=== PATIENT | female | born 1995 | race Caucasian/White ===

== ENCOUNTER 2020-08-14 22:20 | Inpatient (IN) | payer BC, MEDICAID, SELFPAY ==
[2020-08-14 21:36] VITALS: BMI 30.5
[2020-08-14 21:46] VITALS: BP 141/99; PULSE 69; TEMP 36.4; O2SAT 100
[2020-08-14 21:47] VITALS: PULSE 73; O2SAT 98
[2020-08-14 22:16] LABS: ROM Internal Control Test YES-OK TO RESULT pt. (Internal QC)
[2020-08-14 22:17] LABS: ROM Patient Test POSITIVE (Negative)
--- NOTE | 2020-08-14 22:25 | PCM.HP.OB ---
- Problem List (1) 33 weeks gestation of Status: Acute (2) Primiparous Status: Acute (3) Amniotic fluid leaking Status: Acute (4) contractions Status: Acute History Date of Admission: 08/14/20 Final RADHA: 10/01/20 Gestational age: 33 Weeks and 1 Days History of this : This is a 24 year-old, G1 at 33w1d who presents with LOF and ctx's. She reports constant leaking of fluid for 2-3 days. She has been having painful ctx's q 5-7 min. No bleeding. +FM. Allergies No Known Allergies Allergy (Verified 08/14/20 21:53) Home Medications: Home Medications Amitriptyline HCl 50 mg PO DAILY 08/14/20 Pnv No.95/Ferrous Fum/Folic AC [ Caplet] 1 tab PO DAILY 08/14/20 Alcohol: None Substance Use Type: Marijuana Number of Fetus(es): 1 NST - FHR Rate Baby A Baseline: 140 Variability:: Moderate Accelerations:: 15 x 15 Decelerations:: None NST Reactive:: Yes Uterine Activity:: Ctx's q 5-7 min History Past Pregnancies: Past Pregnancies Delivery Date Name GA/ Weeks Outcome Route Wt Sex Labor Length Anesthesia Delivery Location Provider FOB Labs: See [facility] record Expected Infant Delivery Method: Spontaneous Vaginal Physical Exam Vitals: Vital Signs Temp Pulse BP Pulse Ox 97.5 F L 73 141/99 H 98 08/14/20 21:46 08/14/20 21:47 08/14/20 21:46 08/14/20 21:47 Assessment/Plan All Active Problems 33 weeks gestation of (Acute) Primiparous (Acute) Amniotic fluid leaking (Acute) contractions (Acute) This is a 24 year-old, at 33w1d admitted with positive ROM plus, contractions, and cervical dilation. Cervix 3-4 cm dilated with regular ctx's. - Admit for routine intrapartum care - Start PCN for GBS unknown. Will collect GBS culture - Pt requesting epidural now for pain control - ROM plus was positive but membranes palpated on exam. If pt not delivered by AM, will recheck ROM plus - BMZ for lung maturity - Discussed with pt baby may be transferred to [place] - Urine drug screen on admission - Anticipate vaginal delivery
[2020-08-14] MEDS: Betamethasone/Betamethasone 30 MG/5 ML Vial 12 MG IM (22:55)
--- NOTE | 2020-08-14 22:57 | PCM.PN.BLA ---
Progress Note TAUS- confirms vertex presentation. STROKE Vital Signs/Narrative: Vital Signs Temp Pulse BP Pulse Ox 08/14/20 21:47 73 98 08/14/20 21:46 97.5 F L 69 141/99 H 100
[2020-08-14] MEDS: Lactated Ringers 1,000 ML 50 ML IV (23:20)
[2020-08-14] MEDS: Lactated Ringers 500 ML 999 ML IV (23:20)
[2020-08-14] MEDS: Ondansetron 4 MG/2 ML Vial IV (23:29)
[2020-08-14] MEDS: 0.9% Saline Lock 10 ML Syringe IV (23:29)
[2020-08-14 23:46] LABS: Group B Strep DNA By PCR POSITIVE (Negative); Probe Check PASS
[2020-08-14 23:56] VITALS: TEMP 36.6; O2SAT 97
[2020-08-14 23:57] VITALS: BP 148/80; PULSE 77
[2020-08-15] VITALS (48 sets, daily range): BP systolic 114–152; BP diastolic 58–91; PULSE 50–116; RESP 16; TEMP 36.2–37.2; O2SAT 83–100
[2020-08-15] LABS: Absolute Lymphocyte Count 2.71 X10^3/uL (0.83-4.51); Absolute Neutrophil Count 12.1 X10^3/uL (2.0-7.7); Basophil# 0.07 X10^3/uL; Basophil% 0.4 % (0-1); Eosinophil# 0.16 X10^3/uL; Hemoglobin 10.8 g/dL (12.0-15.0); Lymphocyte # 2.71 X10^3/ul (4.0); Lymphocyte % 16.2 % (19-41); Mean Corp Hgb Conc 31.8 g/dL (32-36); Mean Corpuscular Hgb 23.7 pg (27.0-32.0); Mean Corpuscular Volume 74.7 fL (81-99); Mean Platelet Vol. 11.8 fl (6.2-12.0); Monocyte# 1.24 X10^3/uL; Monocyte% 7.4 % (0-10); NRBC Flagged by Analyzer 0 % (0-5); Platelet Count 429 K/mm3 (150-450); RBC Distribution Width SD 37.2 fl (35.1-43.9); Red Blood Count 4.55 M/mm3 (4.2-5.4); White Blood Count 16.8 K/mm3 (4.4-11.0)
[2020-08-15] MEDS: fentaNYL-bupivacaine (epidural) 100 ML BAG EPIDURAL ×2 (00:32→04:40)
[2020-08-15 01:45] LABS: Amphetamine Urine VISTA NEGATIVE (<1000 ng/mL); Barbiturate Urine VISTA NEGATIVE (< 200 ng/mL); Benzodiazepine Urine VISTA NEGATIVE (< 200 ng/mL); Cocaine Urine VISTA NEGATIVE (< 300 ng/mL); Ecstacy Urine VISTA NEGATIVE (< 500 ng/mL); Methadone Urine VISTA NEGATIVE (< 300 ng/mL); PCP Urine VISTA NEGATIVE (< 25 ng/mL); THC Urine VISTA POSITIVE (< 50 ng/mL); Vista UDS pH Range 6
[2020-08-15] MEDS: Lactated Ringers 1,000 ML 200 ML IV (04:39)
[2020-08-15] MEDS: Lactated Ringers 500 ML 999 ML IV (05:26)
[2020-08-15] MEDS: Oxytocin 30 units/NS 500 ml 30 UNITS/500 ML IV.SOLN 334 UNITS IV (09:33)
--- NOTE | 2020-08-15 09:40 | PCM.OPRPT ---
Vaginal Delivery Maternal Presentation: Active Labor, Spontaneous Rupture of Membranes Amniotic Membrane Rupture Type: Spontaneous at home Amniotic Fluid Description: Clear Final RADHA: 10/01/20 Final RADHA Source: US <20 weeks Gestational age: 33 Weeks and 2 Days Date of Procedure: 08/15/20 - 930 delivery time Pre-Operative Diagnosis: labor, PPPROM (08/12/20 1400) Post-Operative Diagnosis: same, live male infant Surgery/ Procedure Performed: Spontaneous Vaginal Delivery Type of Anesthesia: Epidural Description of Procedure: pt delivered live male born without complication on 08/15/20 at 0931. pt was complete and with PEDS/Respiratory/nursery team available infant delivered with good maternal pushing efforts. NUCHAL x 1 reduced prior to delivery. infant delivered and was placed on maternal chest for delayed cord clamping. was vigourous. cord then clamped and cut and handed to isolette for evaluation. Placenta was then delivered intact without complication. No vaginal lacerations noted. Presentation: Vertex Placenta Disposition: Routine to Lab Nuchal Cord Compression: Without compression Cord Entanglement: Around neck x 1, loose Drain: Andrew to straight drain Estimated Blood Loss: 150 A gender: Male (1 minute): 7 (5 minute): 8 Episiotomy Description: None Laceration: None Medications given after delivery: IV Pitocin Complications: - - no implants
--- NOTE | 2020-08-15 10:17 | DCINST_ITS ---
Discharge Diet: No Restrictions Discharge Activity: Return to Normal Activity, May not drive while taking narcotic pain medications., May Shower May resume sexual activity in: 4-6 weeks Additional Activity Instructions:: Nothing in the vagina for 4-6 weeks. You may return to work/school in 6 weeks. Call your doctor if your incision/area has: Continuous Slow Oozing, Sudden Increased Bleeding, Increased Pain/ Swelling, Increased Redness, Foul Smelling Discharge Additional Instructions: If you experience any of the following, contact your healthcare provider. * Bleeding that soaks a pad every hour for 2 hours * Fever 100.4 or higher * Unrelieved incision or abdominal pain * Swelling, redness, discharge or bleeding from your incision or episiotomy site * Your incision begins to separate * Problems urinating (including inability to urinate or burning while urinating). * Visual changes * Severe headache * Flu-like symptoms * Pain or redness in one of both of your breasts * Pain, warmth, tenderness or swelling in your legs, especially the calf area * Frequent nausea and vomiting * Symptoms of depression or anxiety If you experience any of the following, call 911 or go to the nearest Emergency Room. * Chest pain * Problems breathing * Seizure activity * Partial or complete paralysis of a body part, slurred speech, weakness or drooping of the face, or a sudden inability to walk or hold your balance Allergies/Adverse Reactions: Allergies No Known Allergies Allergy (Verified 08/14/20 21:53) Medications to take at Discharge Amitriptyline HCl 50 mg PO DAILY 08/14/20 Pnv No.95/Ferrous Fum/Folic AC [ Caplet] 1 tab PO DAILY 08/14/20 Ibuprofen [Motrin] 600 mg PO Q6H PRN PRN #60 tab 08/15/20 The following prescriptions were given: Ibuprofen [Motrin] 600 mg PO Q6H PRN PRN #60 tab PRN Reason: Pain Score 1-10 Transmission Status: Pending to [facility] Please Follow Up With: Danyell Mckeon MD When: Call to make an appointment with your doctor in 1-2 weeks then at 6 weeks post Primary Care Physician: Jeffery Smith MD [Primary Care Provider] - Test Results: Test results from this visit will be discussed in further detail at your follow- up appointment, if applicable. Proposed Discharge Date: 08/15/20 - being trasnferred to [facility]- pt requesting discharge today
--- NOTE | 2020-08-15 12:22 | NURSING ---
mother started pumping at 1200. Assisted with milk collection and milk was sent with the transport team to take with infant upon d/c from our unit. Mother already getting an abundant amount of colostrum.
--- NOTE | 2020-08-15 13:30 | CM.ED ---
Social Work Assessment Labor and Delivery Unit Date of Referral: 08/15/2020 Time of Referral: 11:00 Referred By: Nursing staff Date of Intervention: 08/15/2020 Time of Intervention: 13:30 Reason for Referral: Mother of baby (MOB) with THC use during . MOB with history of Anxiety and Depression. Father of baby (FOB) with history of Bi-polar. History obtained from: MOB, FOB, Nursing staff, Chart. Household composition: MOB (Kimberly Taylor) and FOB (Tanvir Brewer) have private home together. , Tramaine Brewer to join MOB and FOB. Patient's parent/guardian status: MOB and FOB have been together for 1 ? years and was not planned but ?not avoided.? This is first for MOB and second for FOB. FOB reports to have a 4-year-old daughter that FOB has on the weekends. FOB stepped out of the room and this outreach and education social worker was able to confirm that MOB feels safe with FOB. MOB and FOB report to be excited about Christopher and starting their family together. Medical History: MOB with history prior to this . MOB with vaginal delivery at 33 weeks. Infant born on 08/15/2020 and transferred to [facility]. MOB report plan to breast feed and has been pumping. MOB reports history of Anxiety and Depression. FOB with history of Bi-Polar. Educational Status: MOB denies any issues with comprehension or understanding. 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 FOB is self-employed and lays tile. Supplies: MOB reports to have all needed infant supplies in the home including a crib and car seat etc. Childcare/Caregiver(s): MOB plans to be primary caregiver for with family for support ones MOB returns to work. Transportation: Denies any issues. Programs/Agencies Involved: MOB reports to have applied for WIC. Children Services/Legal Issues: Denies any legal issues or active children services case. FOB reports ?there was a case? for FOB?s 4 year old daughter with allegations against the FOB?s prior partner. Mental Health History: MOB reports to have history of Anxiety and Depression. MOB reports to take Amitriptyline to manage mental health. Patient denies any suicidal thoughts, plans, intents. This outreach and education social worker able to facilitate conversation with MOB about signs and symptoms. MOB reports to have a positive support system and feels safe talking with doctor or supports as needed. Substance Use History: MOB admits to THC use with last use being 6-8 weeks ago. MOB aware of positive tox screen during and on admission to labor and delivery. MOB reports safety plan is to no longer use THC. MOB reports that if MOB would return to using THC MOB would discontinue and not use around infant, leaving infant in the care of a sober adult. MOB denies any other substance abuse/use. Family History: FOB with history of Bi-polar. FOB reports to have last been treated for ?my Bi-polar when I was in 8th grade.? Maternal and Drug Screens: MOB with positive tox screen on 08/15/2020. discharged to [facility] prior to being able to obtain tox screen results. PHQ9: Did not trigger. Family/Social Stressors: Infant being transferred to [facility]. MOB appears with appropriate affect and management of emotions. Support Systems: MOB reports to have needed supports in the home and community. Depression and Anxiety/Shaken Baby/Safe Sleeping: This outreach and education social worker provided MOB with resources on Depression and Anxiety, Shaken Baby and Safe Sleeping along with [facility] Resources. MOB and FOB responding appropriately to safe sleeping and shaken baby prompts. ASSESSMENT: Met with MOB and FOB in room. Introduced self and outreach and education social worker role. MOB agreeable to speak with this outreach and education social worker. MOB provided verbal permission for this outreach and education social worker to speak openly with FOB present. Unable to observe interaction with infant and MOB/FOB due to infant being transferred to [facility]. MOB reports to ?feel a connection.? MOB reports to be excited about . MOB denies any issues or concerns at discharge and plans to discharge to critical access hospital/[facility] today. Safe Plan of Care for related to substance use: MOB reports plan to no longer use THC. MOB reports if MOB would return to using THC to plan to stop and to not use around infant, leaving in the charge of a sober adult. PLAN: MOB to discharge to critical access hospital. John Vaughn MSW, JOYA-S
[2020-08-15 13:36] LABS: Absolute Lymphocyte Count 1.59 X10^3/uL (0.83-4.51); Absolute Neutrophil Count 24.2 X10^3/uL (2.0-7.7); Basophil# 0.03 X10^3/uL; Basophil% 0.1 % (0-1); Hematocrit 32.4 % (37-47); Hemoglobin 10.1 g/dL (12.0-15.0); Lymphocyte # 1.59 X10^3/ul (4.0); Lymphocyte % 5.8 % (19-41); Mean Corp Hgb Conc 31.2 g/dL (32-36); Mean Corpuscular Hgb 23.3 pg (27.0-32.0); Mean Corpuscular Volume 74.7 fL (81-99); Mean Platelet Vol. 10.8 fl (6.2-12.0); Monocyte# 1.32 X10^3/uL; Monocyte% 4.8 % (0-10); NRBC Flagged by Analyzer 0.1 % (0-5); Neutrophil # 24.21 X10^3/uL (2.7-7.7); Neutrophil % 88.5 % (47-70); POSITIVE DIFFERENTIAL YES; Platelet Count 370 K/mm3 (150-450); RBC Distribution Width SD 37.3 fl (35.1-43.9); Red Blood Count 4.34 M/mm3 (4.2-5.4); White Blood Count 27.4 K/mm3 (4.4-11.0)
[2020-08-15 13:38] LABS: Differential Indicated SCAN CRITERIA MET
--- NOTE | 2020-08-15 14:13 | NURSING ---
Lab results called to Dr Alfredo. Aware of increase in WBC. Ok to discharge home but not till 1600. Pt to call office if develops any signs and symptoms of infection.
--- NOTE | 2020-08-15 16:48 | PCM.PN.BLA ---
Progress Note spoke with ASHLEE Cordova after CBC results- increased WBC count- pt will monitor for signs of infection. pt had PPPROM- afebrile during labor, did receive IV PCN. Pt did not exhibit and purulent or malodorous vaginal discharge. PT will be given instructions on Monitoring for S/Sx of infection and will notify office if she experiences any symptoms. Infant transported to [facility] and patient would like dc home. STROKE Vital Signs/Narrative: Vital Signs Temp Pulse Resp BP BP 08/15/20 16:00 97.2 F L 82 16 132/76 H 08/15/20 15:51 82 132/76 H 08/15/20 13:11 98.2 F 99 16 125/78 H
== END 2020-08-15 16:30 | disposition home or self-care (01) | DRG 807 ==
LOC: WPOUT 22:27 → WP 22:27
PROVIDERS: Advanced Practice Midwife; Obstetrics & Gynecology; Admitting Provider Obstetrics & Gynecology; PCP Pediatrics; Visit Provider Obstetrics & Gynecology
DX: O42.013 Preterm premature rupture of membranes, onset of labor within 24 hours of rupture, third trimester (principal); Z37.0 Single live birth; O69.81X0 Labor and delivery complicated by cord around neck, without compression, not applicable or unspecified; Z3A.33 33 weeks gestation of pregnancy
CPT/HCPCS: 59025; 59050; 76815; 80307; 84112; 85025; 86850; 86900; 86901; 87426; 87653; 99218; J7120; A4216; G0378; J0702; J2405

== ENCOUNTER 2021-06-25 12:04 | Emergency (ER) | payer BC, MEDICAID, SELFPAY ==
[2021-06-25 12:04] VITALS: BP 109/71; PULSE 83; RESP 16; TEMP 36.9; O2SAT 100; BMI 23.8
--- NOTE | 2021-06-25 13:34 | ED.VIS.GI ---
HPI HPI - GI History of Present Illness Chief Complaint: Nausea/Vomiting Narrative Narrative: Patient is a G2, P1 female at approximately 8 weeks gestation, presenting with nausea and vomiting. She states that she has been sick with upper respiratory infection type symptoms and nausea and vomiting for the last week, but is worsened over the last few days. Over the last 24 hours, she has vomited too many times to count. She denies any blood in her emesis. No diarrhea. She had abdominal cramping, but no vaginal pain or uterine cramping. She denies any vaginal bleeding. She still states that her OB told her to take it easy with vitamins because she has been ill and having nausea and vomiting. She is taking Phenergan without relief. She did have mild hyperemesis with her first child, was never hospitalized. She denies any dysuria or hematuria. Of note, she does admit to marijuana use, the last being this morning, because she says that it helps her sleep, and that she has tried to cut back on her use. PFSH PFS Home Medications NK 06/25/21 [History Last Taken Unknown] Allergy/AdvReac Type Severity Reaction Status Date / Time No Known Allergies Allergy Verified 06/25/21 12:06 Social History Smoking Status: Never smoker ROS ROS ED ROS Narrative Constitutional: No fever, no chills. HEENT: No sore throat. No neck pain. No loss of vision. No rhinorrhea. Cardiovascular: No chest pain. No palpitations. No pedal edema. Respiratory: No cough, no shortness of breath. Abdominal: No abdominal pain, occasional abdominal cramping. Positive nausea. Multiple episodes of vomiting. No hematemesis. Genitourinary: No dysuria. No hematuria. No uterine cramping. No vaginal bleeding. Musculoskeletal: No myalgias. No arthralgias. Neurologic: No headaches. No dizziness. No lightheadedness. Skin: No rash. No change in color. Psychiatric: No depression. No anxiety. EXAM Physical Exam Narrative Exam Narrative: Afebrile. Vital signs noted. HEENT: Normocephalic. Atraumatic. PERRL, EOMI. Neck soft and supple. No point tenderness or step off. Cardiovascular: Regular rate and rhythm. No murmurs, rubs, or gallops appreciated. Respiratory: No tachypnea. Lungs clear to auscultation bilaterally. Gastrointestinal: Abdomen soft, nontender, with normoactive bowel sounds. No rebound or guarding. Neurological: Awake. Alert. Nonfocal, nonlateralizing. Skin: No rash. Normal color. No pallor. Musculoskeletal: No pedal edema. Full range of motion extremities. Const Vital Signs: 06/25/21 12:04 Temperature 98.4 F Temperature Source Temporal Pulse Rate 83 Respiratory Rate 16 Blood Pressure 109/71 Blood Pressure Mean 83 Pulse Ox 100 Oxygen Delivery Method Room Air MDM MDM MDM Narrative Medical decision making narrative: Patient states that she has had ultrasound at her OBs office which shows intrauterine that may be larger than dates. I do not feel repeat ultrasound is indicated. She is not having any vaginal bleeding. I do feel that she may be having more hyperemesis gravidarum and that her marijuana use can contribute to this. I will obtain a CBC, CMP, and lipase, along with urinalysis. She will be administered a bolus of normal saline 1 L intravenously along with 10 mg of Reglan. There has been no vomiting in the ED. After her IV fluid bolus she feels improved. WBC count normal at 10.1, hemoglobin stable at 12.5. Potassium slightly low at 3.4, she has a normal creatinine of 0.53 and a BUN of 5. Her urinalysis shows no evidence of infection with only 0-5 WBCs seen on microscopic. I do not feel antibiotics are indicated. She does have 150 ketones noted in her urine. I discussed the patient with Rosario Garcia, the anesthesiologist assistant certified on-call for Dr. Alfredo. She agrees with outpatient follow-up. She will be given a prescription for Zofran as instructed by the charge histotechnologist. I feel she can be discharged safely home with follow-up. Return instructions to the emergency department were reviewed. Disposition is discharged home in stable condition. I have also discussed marijuana cessation with the patient. Lab Data Attestation: I reviewed the patient's lab results. Labs: Laboratory Results - last 24 hr 06/25/21 06/25/21 06/25/21 13:50 13:50 15:10 WBC 10.1 RBC 5.09 Hgb 12.5 Hct 38.3 MCV 75.2 L MCH 24.6 L MCHC 32.6 RDW Std Deviation 46.5 H RDW Coeff of Macy 17.1 H Plt Count 314 MPV 10.0 Immature Gran % (Auto) 0.500 Neut % (Auto) 78.8 H Lymph % (Auto) 9.3 L Dewey % (Auto) 9.5 Eos % (Auto) 1.6 Baso % (Auto) 0.3 Absolute Neuts (auto) 7.9 H Absolute Lymphs (auto) 0.94 Nucleated RBC % 0 Sodium 137 Potassium 3.4 L Chloride 106 Carbon Dioxide 22.0 Anion Gap 9 BUN 5 L Creatinine 0.53 L Estim Creat Clear Calc 129.45 Est GFR (MDRD) Af Amer 180 Est GFR (MDRD) Non-Af 149 BUN/Creatinine Ratio 9.4 L Glucose 70 L Calcium 8.8 Total Bilirubin 0.30 AST 10 L ALT 14 Alkaline Phosphatase 57 Total Protein 6.8 Albumin 2.8 L Globulin 4.0 Albumin/Globulin Ratio 0.7 L Lipase 43 L Urine Color Yellow Urine Clarity Sl. Cloudy Urine pH 6.0 Ur Specific [place] 1.025 Urine Protein 30 H Urine Glucose (UA) Normal Urine Ketones 150 A* Urine Occult Blood Negative Urine Nitrite Negative Urine Bilirubin Negative Urine Urobilinogen 1 H Ur Leukocyte Esterase 25 H Urine RBC 0 SEEN Urine WBC 0-5 SEEN Ur Squamous Epith Cells 0-5 SEEN Urine Bacteria 1+ Urine Mucus 0 SEEN Discharge Plan Triage Chief Complaint: Nausea/Vomiting ED Provider: Carter Burkett Dx/Rx/DC Orders Prescriptions: No Action NK RF: 0 Primary Care Provider: Ramiro Aguirre
[2021-06-25] MEDS: Metoclopramide 10 MG/2 ML Vial IV (13:47)
[2021-06-25] MEDS: 0.9% Normal Saline 1,000 ML 1000 ML IV (13:47)
[2021-06-25 13:59] LABS: Absolute Lymphocyte Count 0.94 X10^3/uL (0.83-4.51); Absolute Neutrophil Count 7.9 X10^3/uL (2.0-7.7); Basophil# 0.03 X10^3/uL; Basophil% 0.3 % (0-1); Eosinophil# 0.16 X10^3/uL; Eosinophils% 1.6 % (0-5); Hematocrit 38.3 % (37-47); Hemoglobin 12.5 g/dL (12.0-15.0); Lymphocyte # 0.94 X10^3/ul (0.83-4.51); Lymphocyte % 9.3 % (19-41); Mean Corp Hgb Conc 32.6 g/dL (32-36); Mean Corpuscular Hgb 24.6 pg (27.0-32.0); Mean Corpuscular Volume 75.2 fL (81-99); Monocyte# 0.96 X10^3/uL; Monocyte% 9.5 % (0-10); NRBC Flagged by Analyzer 0 % (0-5); Neutrophil # 7.94 X10^3/uL (2.7-7.7); Neutrophil % 78.8 % (47-70); Platelet Count 314 K/mm3 (150-450); RBC Distribution Width CV 17.1 % (11.6-14.6); RBC Distribution Width SD 46.5 fl (35.1-43.9); Red Blood Count 5.09 M/mm3 (4.2-5.4); White Blood Count 10.1 K/mm3 (4.4-11.0)
[2021-06-25 14:19] LABS: ALB/GLOB Ratio 0.7 RATIO (0.9-2.4); AST(SGOT) 10 U/L (15-37); Alanine Aminotransfer ALT/SGPT 14 U/L (13-56); Albumin, Serum 2.8 g/dL (3.2-5.0); Alkaline Phosphatase 57 U/L (45-117); Anion Gap 9 (5-15); BUN 5 mg/dL (7-18); BUN/Creat Ratio 9.4 RATIO (10-20); Calcium,Total 8.8 mg/dL (8.5-10.1); Chloride 106 mmol/L (98-107); Creatinine, Serum 0.53 mg/dL (0.55-1.02); EST Glomerular Filtration Rate 149 mL/min (>60); Est Glom Filt Rate - Afr Amer 180 mL/min (>60); Estimated Creatinine Clearance 129.45 ml/min; Glucose 70 mg/dL (74-106); Lipase 43 U/L (73-393); Potassium 3.4 mmol/L (3.5-5.1); Protein, Total 6.8 g/dL (6.4-8.2); Sodium Level 137 mmol/L (136-145)
[2021-06-25 15:14] LABS: Mucous, Urine 0 SEEN /hpf (<or=2+); Red Blood Cells-Urine 0 SEEN /hpf (0-5)
[2021-06-25 15:20] LABS: Color, Urine Yellow (Yellow); Glucose, Dipstick Normal (Normal); Leukocyte Esterase-Dipstick 25 /ul (Negative); Nitrite-Dipstick Negative (Negative); Occult Blood-Urine Negative /ul (Negative); Protein-Dipstick 30 mg/dl (Negative); Specific Gravity, Urine 1.025 (1.002-1.030); Urine Bilirubin Dipstick Negative (Negative); Urine Clarity Sl. Cloudy (Clear); Urine Urobilinogen 1 mg/dl (Normal)
[2021-06-25 15:22] LABS: Ketone-Dipstick 150 mg/dl (Negative)
[2021-06-25 15:30] LABS: Bacteria 1+ /hpf (None Seen); Squamous Epithelial Cells - UA 0-5 SEEN /hpf (5-10); White Blood Cells 0-5 SEEN /hpf (0-5)
[2021-06-25 16:29] VITALS: BP 114/70; PULSE 66; RESP 16; O2SAT 98
== END 2021-06-25 16:30 | disposition home or self-care (01) ==
PROVIDERS: Emergency Provider Emergency Medicine; PCP Family Medicine
DX: O21.9 Vomiting of pregnancy, unspecified (principal); O99.321 Drug use complicating pregnancy, first trimester; F12.90 Cannabis use, unspecified, uncomplicated; Z3A.08 8 weeks gestation of pregnancy
CPT/HCPCS: 80053; 81001; 83690; 85025; 96361; 96374; 99283; J7030; A4216

== ENCOUNTER 2022-01-01 20:05 | Outpatient (CLI) | payer BC, MEDICAID, SELFPAY ==
[2022-01-01 20:14] VITALS: BMI 28.4
[2022-01-01 20:18] VITALS: TEMP 36.6
[2022-01-01 20:24] VITALS: BP 126/74; PULSE 68
[2022-01-01 20:53] LABS: Mucous, Urine 0 SEEN /hpf (<or=2+); Red Blood Cells-Urine 0 SEEN /hpf (0-5)
[2022-01-01 20:56] LABS: Color, Urine Yellow (Yellow); Glucose, Dipstick Normal (Normal); Ketone-Dipstick Negative (Negative); Leukocyte Esterase-Dipstick 100 /ul (Negative); Nitrite-Dipstick Negative (Negative); Occult Blood-Urine Negative /ul (Negative); Protein-Dipstick 15 mg/dl (Negative); Urine Bilirubin Dipstick Negative (Negative); Urine Clarity Clear (Clear); Urine Urobilinogen Normal (Normal); Urine pH 6.5 (5.0 - 8.0)
[2022-01-01 21:06] LABS: Bacteria 1+ /hpf (None Seen); White Blood Cells 5-10 SEEN /hpf (0-5)
[2022-01-01 21:07] LABS: Squamous Epithelial Cells - UA 0-5 SEEN /hpf (5-10)
[2022-01-01 21:34] LABS: ROM Internal Control Test YES-OK TO RESULT pt. (Internal QC)
[2022-01-01 21:35] LABS: ROM Patient Test Negative (Negative)
[2022-01-01 22:02] LABS: Group B Strep DNA By PCR Negative (Negative); Internal Control PASS; Probe Check PASS; Specimen Processing Control PASS
--- NOTE | 2022-01-20 10:15 | OB.TRI.NOTE ---
HPI - General HPI Narrative QUE JEONG, is a 26 F who presents at 35w2d with contractions Maternal Data Information RADHA Calculator Estimated Delivery Date Method Current WG Current Estimate 02/02/22 Manual 38w 1d 35w2d PFSH PFSH Medical History (Updated 01/20/22 @ 10:17 by Kanwal Chow CNM) Anxiety Depression History of depression History of pre-term labor History of delivery Migraine Myocarditis Postoperative pain depression Home Medications ondansetron 4 mg PO Q8H PRN #10 tab 06/25/21 [Rx Last Taken 11/02/21] vit-iron fum-folic ac 1 tab PO DAILY 01/01/22 [History Last Taken 01/04/22 08:00] acetaminophen 1,000 mg PO Q6H #60 tab 01/08/22 [Rx Last Taken Unknown] ferrous gluconate 324 mg PO LUNCH #30 tab 01/08/22 [Rx Last Taken Unknown] fluoxetine 40 mg PO QHS #60 cap 01/08/22 [Rx Last Taken Unknown] ibuprofen 600 mg PO Q6H PRN #30 tab 01/08/22 [Rx Last Taken Unknown] oxycodone 5 mg PO Q8H PRN 4 Days #10 tab 01/08/22 [Rx Last Taken Unknown] Allergy/AdvReac Type Severity Reaction Status Date / Time No Known Allergies Allergy Verified 01/04/22 20:55 Surgical History (Updated 01/09/22 @ 00:01 by Background Dajasenon) Delivery by section [place] teeth removed Social History Smoking Status: Never smoker History Elective abortions Hx Para 1 Spontaneous abortions Hx # Term Pregnancies Ectopic pregnancies Hx # Pregnancies Multiple births # of living children NST FHR Rate Baby A Baseline: 140 Variability:: Moderate Accelerations:: 15 x 15 Decelerations:: None NST Reactive:: Yes Uterine Activity:: Irregular Assessment & Plan (1) False labor: PLAN: 1) False labor 2) D/C home
== END 2022-01-01 22:39 | disposition home or self-care (01) ==
LOC: WPOUT 20:11 → WP 20:11
PROVIDERS: PCP Family Medicine; Visit Provider Advanced Practice Midwife
DX: O47.9 False labor, unspecified (principal); Z3A.35 35 weeks gestation of pregnancy
CPT/HCPCS: 59025; 59050; 81001; 84112; 87081; 87653; 99218; G0378

== ENCOUNTER 2022-01-04 20:13 | Inpatient (IN) | payer BC, MEDICAID, SELFPAY ==
[2022-01-04] VITALS (24 sets, daily range): BP systolic 110–140; BP diastolic 73–84; PULSE 60–85; TEMP 36.3–37.3; O2SAT 98–100; BMI 28.3
[2022-01-04] MEDS: Betamethasone/Betamethasone 30 MG/5 ML Vial 12 MG IM (18:57)
[2022-01-04 19:06] LABS: Amphetamine Urine VISTA NEGATIVE (<1000 ng/mL); Barbiturate Urine VISTA NEGATIVE (< 200 ng/mL); Benzodiazepine Urine VISTA NEGATIVE (< 200 ng/mL); Cocaine Urine VISTA NEGATIVE (< 300 ng/mL); Ecstacy Urine VISTA NEGATIVE (< 500 ng/mL); Methadone Urine VISTA NEGATIVE (< 300 ng/mL); PCP Urine VISTA NEGATIVE (< 25 ng/mL); THC Urine VISTA NEGATIVE (< 50 ng/mL); Vista UDS pH Range 6
--- NOTE | 2022-01-04 20:27 | PCM.HP.OB ---
HPI - General General Date of Admission: 01/04/22 HPI Narrative QUE JEONG, is a 26 F who presents Maternal Data Information RADHA Calculator Estimated Delivery Date Method Current WG Current Estimate 02/02/22 Ultrasound #1 35w 6d PFSH PFSH Home Medications ondansetron 4 mg PO Q8H PRN #10 tab 06/25/21 [Rx Last Taken 11/02/21] fluoxetine 40 mg PO DAILY 01/01/22 [History Last Taken 01/03/22 21:00] vit-iron fum-folic ac [Prena-Tab] 1 tab PO DAILY 01/01/22 [History Last Taken 01/04/22 08:00] Allergy/AdvReac Type Severity Reaction Status Date / Time No Known Allergies Allergy Verified 01/04/22 17:59 Social History Smoking Status: Never smoker History Elective abortions Hx Para 0 Spontaneous abortions Hx # Term Pregnancies Ectopic pregnancies Hx # Pregnancies Multiple births # of living children Vital Signs Vital Signs Vital Signs: 01/04/22 17:57 Temperature 97.4 F L Temperature Source Temporal Pulse Rate 68 Blood Pressure 124/74 H BP Systolic 124 BP Diastolic 74 Weight Weight: 154 lb 12.232 oz Body Mass Index (BMI) 28.3 Labs Labs Labs: Blood Type A POSITIVE Antibody Screen NEGATIVE Hct 38.3 % (37-47) Hgb 12.5 g/dL (12.0-15.0) Group B Strep DNA Negative (Negative) Rhogam given: No Assessment & Plan (1) 35 weeks gestation of : PLAN: - Cvx changed from 4 > 5 cm - Thickened nuchal fold in with normal CVS - Admit for routine intrapartum care - Rapid GBS, GBS cx - Epidural for pain control - BMZ given x 1 - Most recent Hgb in office 8.8, routine labs on admission - EFW expected to be < 3500 g and pelvis adequate - Anticipate vaginal delivery (2) labor: (3) Anemia affecting : (4) Thickening of nuchal fold: (5) History of delivery: (6) Short interval between pregnancies affecting , antepartum:
[2022-01-04] MEDS: Lactated Ringers 1,000 ML 50 ML IV (20:40)
[2022-01-04 21:06] LABS: Group B Strep DNA By PCR Negative (Negative); Internal Control PASS; Probe Check PASS; Specimen Processing Control PASS
[2022-01-04 21:07] LABS: Absolute Neutrophil Count 9.9 X10^3/uL (2.0-7.7); Basophil# 0.01 X10^3/uL; Basophil% 0.1 % (0-1); Eosinophil# 0.08 X10^3/uL; Eosinophils% 0.7 % (0-5); Hematocrit 32.2 % (37-47); Hemoglobin 9.4 g/dL (12.0-15.0); Lymphocyte % 12.3 % (19-41); Mean Corp Hgb Conc 29.2 g/dL (32-36); Mean Platelet Vol. 11.4 fl (6.2-12.0); Monocyte# 0.55 X10^3/uL; Monocyte% 4.5 % (0-10); NRBC Flagged by Analyzer 0 % (0-5); Neutrophil # 9.94 X10^3/uL (2.7-7.7); Neutrophil % 81.2 % (47-70); POSITIVE MORPHOLOGY YES; Platelet Count 264 K/mm3 (150-450); RBC Distribution Width CV 21.6 % (11.6-14.6); RBC Distribution Width SD 44.8 fl (35.1-43.9); Red Blood Count 4.47 M/mm3 (4.2-5.4); White Blood Count 12.2 K/mm3 (4.4-11.0)
[2022-01-04] MEDS: Lactated Ringers 500 ML 999 ML IV (21:08)
[2022-01-04 21:11] LABS: Differential Indicated SCAN CRITERIA MET
[2022-01-04 21:55] LABS: Differential Comment SCANNED
[2022-01-04] MEDS: fentaNYL-bupivacaine (epidural) 100 ML BAG EPIDURAL (22:05)
[2022-01-04] MEDS: FLUoxetine 20 MG Capsule 40 MG PO (22:21)
--- NOTE | 2022-01-04 22:39 | PCM.PN.BLA ---
Progress Note At bedside to check on patient. Comfortable with epidural. Category 1 tracing. Isai q 3-4 min. Cvx 5/70/-1, BBOW.
[2022-01-05] VITALS (27 sets, daily range): BP systolic 96–124; BP diastolic 51–77; PULSE 52–81; RESP 14–24; TEMP 36.2–37.2; O2SAT 97–99
[2022-01-05] MEDS: Lactated Ringers 500 ML 999 ML IV (01:57)
[2022-01-05] MEDS: Lactated Ringers 1,000 ML 200 ML IV (02:38)
[2022-01-05] MEDS: fentaNYL-bupivacaine (epidural) 100 ML BAG EPIDURAL (02:43)
--- NOTE | 2022-01-05 04:13 | PCM.PN.BLA ---
Progress Note At bedside pushing with patient for about 1 hour. ROP position. Good maternal effort and descent noted. Continue position changes to attempt rotation.
--- NOTE | 2022-01-05 04:46 | PCM.PN.BLA ---
Progress Note At bedside to reassess patient. Almost 2 hours of pushing. Minimal descent noted now and maternal exhausted. Fetus in OP position. Discussed r/b/a to a vacuum assisted vaginal delivery including but not limited to lacerations, cephalohematoma, subgaleal hematoma, intracranial hemorrhage, nerve palsy. Patient desires to proceed with a vacuum assisted vaginal delivery given maternal exhausted and arrest of labor in the second stage. Consent obtained. Bladder drained with de la fuente. Cvx 10/100/+2. Pain well controlled with epidural. See operative report for details.
[2022-01-05] MEDS: Sodium Citrate/Citric Acid 30 ML UDC PO (04:48)
[2022-01-05] MEDS: Acetaminophen 500 MG Tablet PO (04:50)
[2022-01-05] MEDS: Cefazolin 2 GM in 0.9% Normal Saline 100 ML IV (05:00)
--- NOTE | 2022-01-05 06:32 | OP.PCM_ITS ---
Problems Associated Problem List Diagnoses (1) 36 weeks gestation of : (2) Arrest of descent, delivered, current hospitalization: (3) POP (persistent occipitoposterior position): (4) History of delivery: (5) Short interval between pregnancies affecting , antepartum: (6) labor: Report of Operation Date of Procedure: 01/05/22 Pre-Operative Diagnosis: 36 week gestation, arrest of descent, persistent OP position, labor, failed vacuum Post-Operative Diagnosis: As above Surgery/Procedure Performed:: PLCS via pfannenstiel incision Description of Surgical Findings:: Indications: The patient presented at 35w6d in labor. History of prior 33 week vaginal delivery. At 36 week gestation she had progressed to complete and SROM'd. Pelvic felt adequate. Infant was in persistent OP position despite trying multiple pushing positions including hands and knees in an attempt to rotate the baby. She was pushing for about 1.5 hours. Initially good descent was noted. At the end of the 1.5 hours it was felt that no further descent was being made, and maternal exhaustion was noted. Discussed r/b/a of a vacuum assisted vaginal delivery, and discussed option for proceeding directly with a primary section. Clear fluid. VMI in OP position. Normal appearing placenta and 3 VC. Normal appearing uterus and bilateral adnexa. Narrow pelvis. Extension into the right broad ligament. Apgars 1, 6, 7. Delivery time 0527. Surgeon: Leonila Holley professional application designer: Lucas CANTU Type of Anesthesia: Epidural Special Medications: Floseal applied over broad ligament extension Specimen's removed: Placenta Drains: Andrew Estimated Blood Loss (mL): 900 Fluids Replaced: See anesthesia record Description of Procedure: The patient was taken to the operating room where epidural anesthesia was found to be adequate. She was prepped and draped in the dorsal position with a leftward tilt. A Pfannenstiel skin incision was made with a scalpel and this was carried down to the underlying layer of fascia. The fascia was incised in the midline. The fascia was extended laterally using Avila scissors. The fascia was dissected off of the rectus muscles using a combination of sharp and blunt dissection. The rectus muscles were in the midline. The peritoneum was entered bluntly with good visualization of the bladder. The peritoneal incision was extended bluntly. A bladder blade was inserted. A low transverse incision was made on the uterus with a scalpel. Uterine incision was extended bluntly. A nurse applied a hand from below to assist in elevating the head out of the pelvis. The pelvis was felt to be very narrow. The was noted to be in OP position. The infant's head was flexed and brought to the hysterotomy. A viable male was delivered without any traction, force or delay through the hysterotomy. The cord was clamped and cut immediately and the was handed off to the awaiting nursery staff. Placenta was manually extracted and noted to be normal-appearing and intact with three-vessel cord. Cord gases were sent. The uterus was cleared of all clot and debris. The uterus was exteriorized. The hysterotomy was closed with 1-0 Vicryl in a running locked fashion. An extension into the right broad ligament was noted and several additional [id number] sutures were placed with 1-0 Vicryl along the extension to achieve hemostasis. At this time anesthesia had noted that the Andrew was bloody. The bladder was backfilled with methylene blue and no defect was noted. The uterus was placed back into the abdomen. The hysterotomy was again hemostatic. Floseal was placed along the extension into the right broad ligament and pressure was applied. Hemostasis was again noted. The peritoneum was closed with 3-0 Vicryl in a running fashion. The rectus muscles were made hemostatic with the Bovie cautery. The fascia was closed with strata fix in a running fashion. The subcutaneous space was irrigated and made hemostatic with the Bovie cautery. The subcutaneous space was reapproximated with 3-0 Vicryl. The skin was closed in a subcuticular fashion using 4-0 Monocryl. A silver dressing was placed. Instrument, sponge, needle counts were correct and the patient was taken to the recovery in stable condition. The diversional therapist's assistant was present for the entire care: draping the patient, delivery of the infant, closure. Grafts/Implants Used: None Procedure Start Time: 05:18 Procedure Stop Time: 06:20 Complications None Admit VTE Documentation VTE Present on Admission: No VTE Mechan Device Prophylaxis: SCD's
[2022-01-05] MEDS: Oxytocin 30 units/NS 500 ml 30 UNITS/500 ML IV.SOLN 167 UNITS IV (06:39)
--- NOTE | 2022-01-05 06:46 | OP.PCM_ITS ---
Problems Associated Problem List Diagnoses (1) POP (persistent occipitoposterior position): (2) Arrest of descent, delivered, current hospitalization: (3) 36 weeks gestation of : (4) labor: (5) History of delivery: (6) Anemia affecting : (7) Short interval between pregnancies affecting , antepartum: Report of Operation Date of Procedure: 01/05/22 Pre-Operative Diagnosis: 36 week gestation, arrest of descent, persistent OP p osition Post-Operative Diagnosis: As above Surgery/Procedure Performed:: Attempted VAVD Description of Surgical Findings:: Infant in persistent OP position Surgeon: Leonila Holley facilities operator: None Type of Anesthesia: Epidural Special Medications: None Specimen's removed: N/A Drains: De La Fuente Estimated Blood Loss (mL): N/A Fluids Replaced: N/A Description of Procedure: Patient was pushing for about 1.5 hours. Maternal exhaustion noted. Towards the end of pushing FHT with variable decelerations with pushing with recovery in between and moderate variability. The infants head was confirmed to be OP position. Cvx 10/100/+2. Bladder was drained with a de la fuente. Patient was comfortable with epidural. Discussed risk, benefits, alternatives to a vacuum-assisted vaginal delivery and the patient consented and desired to proceed. The vacuum was placed in the correct placement in front of the posterior fontanelle and this was confirmed digitally. With the patient's next contraction, the vacuum was inflated and gentle downward pressure was used. After 3 pushes with that 1 contraction the vacuum was deflated. With a second contraction, the vacuum was inflated and gentle downward pressure was used. After 3 pushes with that 1 contraction the vacuum was again deflated. No pop offs were noted. No change in descent was noted. Recommended a primary section after 2 attempts with a vacuum and no pop offs. Grafts/Implants Used: None Complications None Admit VTE Documentation VTE Present on Admission: No
--- NOTE | 2022-01-05 07:15 | NURSING ---
bedside report given to Erik Ovalles RN who is assuming care of pt at this time
[2022-01-05] MEDS: Ketorolac 30 MG/ML Syringe IV ×3 (07:22→21:32)
[2022-01-05] MEDS: Lactated Ringers 1,000 ML 100 ML IV (09:49)
[2022-01-05] MEDS: Senna/Docusate Sodium 1 Tablet PO (10:59)
[2022-01-05] MEDS: Acetaminophen 500 MG Tablet 1000 MG PO ×2 (11:05→17:55)
[2022-01-05] MEDS: 0.9% Saline Lock 10 ML Syringe IV ×2 (12:07→21:33)
[2022-01-05] MEDS: Cefazolin 1 GM/50 ML BAG IV (15:16)
[2022-01-05] MEDS: FLUoxetine 20 MG Capsule 40 MG PO (21:32)
[2022-01-06] VITALS (7 sets, daily range): BP systolic 100–117; BP diastolic 47–71; PULSE 67–86; RESP 16; TEMP 36.1–36.7; O2SAT 97–100
[2022-01-06] MEDS: 0.9% Saline Lock 10 ML Syringe IV ×2 (00:25→04:09)
[2022-01-06] MEDS: Cefazolin 1 GM/50 ML BAG IV (00:25)
[2022-01-06] MEDS: Acetaminophen 500 MG Tablet 1000 MG PO ×4 (00:26→19:44)
[2022-01-06] MEDS: Ketorolac 30 MG/ML Syringe IV (04:09)
[2022-01-06 06:14] LABS: Hematocrit 26.4 % (37-47); Hemoglobin 7.7 g/dL (12.0-15.0); Mean Corp Hgb Conc 29.2 g/dL (32-36); Mean Corpuscular Hgb 21.6 pg (27.0-32.0); Mean Corpuscular Volume 73.9 fL (81-99); POSITIVE MORPHOLOGY YES; Platelet Count 281 K/mm3 (150-450); RBC Distribution Width CV 22.5 % (11.6-14.6); RBC Distribution Width SD 46.5 fl (35.1-43.9); Red Blood Count 3.57 M/mm3 (4.2-5.4); White Blood Count 15.1 K/mm3 (4.4-11.0)
[2022-01-06 06:16] LABS: Scan Indicated on CBC? Y/N YES- FLAGS NOTED
[2022-01-06 06:35] LABS: Differential Comment SCANNED
--- NOTE | 2022-01-06 09:09 | PCM.PN.OB ---
Subjective Subjective Patient is doing well. She denies lightheadedness or dizziness. Has been up ambulating without difficulty. Lochia normal. She is pumping. Baby is in special care nursery. She denies chest pain, shortness of breath, leg pain. Pain is well controlled. She is ambulating without difficulty. Objective Data Objective Data Vital Signs: Vital Signs Temp Pulse Resp BP Pulse Ox 97.0 F L 79 16 106/70 100 01/06/22 08:00 01/06/22 08:00 01/06/22 08:00 01/06/22 08:00 01/06/22 08:00 Oxygen Delivery Method Room Air Weight: 154 lb 12.232 oz Body Mass Index (BMI) 28.3 Intake & Output: Intake and Output for Last 24 Hours 01/04/22 01/05/22 01/06/22 23:59 23:59 23:59 Intake Total 523.33 / 523.33 3136.66 / 3136.66 50 / 50 Output Total 2100 / 2100 300 / 300 Balance 523.33 / 523.33 1036.66 / 1036.66 -250 / -250 Lab / Micro Data Result Diagrams: 01/06/22 06:05 Labs: Laboratory Results - last 24 hr 01/06/22 06:05: WBC 15.1 H, RBC 3.57 L, Hgb 7.7 L, Hct 26.4 L, MCV 73.9 L, MCH 21.6 L, MCHC 29.2 L, RDW Std Deviation 46.5 H, RDW Coeff of Macy 22.5 H, Plt Count 281, MPV 11.0, Differential Comment SCANNED Micro: Microbiology 01/04/22 20:42 Nasal Secretion SARS-CoV-2 Antigen (Rapid) - Final Physical Exam Const alert and no apparent distress General Appearance: comfortable GI soft to palpation and non-distended GI Narrative: ATTP, FF@U-1 Extremity normal to inspection and no calf tenderness Assessment & Plan (1) Delivery by section: PLAN: She is postoperative day 1 from a unscheduled section at 36 weeks for arrest of descent with a failed vacuum delivery. She is doing well this morning. Pain well controlled. Vital signs stable. Routine postoperative care. (2) History of depression: PLAN: Patient was on Fluoxetine in . Continued . (3) Lactating mother: PLAN: Pumping and baby in special care nursery. (4) Acute on chronic blood loss anemia: PLAN: Hgb 7.7 this morning from 9.4 pre op. Patient has no symptoms of anemia. Discussed expect Hgb to be lower on POD#2 and she may need a blood transfusion or IV iron. To notify us today if she has any symptoms of anemia, and will tranfuse 1 unit of PRBC's. Otherwise since she is doing well, recheck CBC tomorrow.
[2022-01-06] MEDS: Ibuprofen 600 MG Tablet PO ×2 (13:08→19:43)
[2022-01-06] MEDS: FLUoxetine 20 MG Capsule 40 MG PO (21:50)
[2022-01-06] MEDS: oxyCODONE 5 MG Tablet PO (21:55)
[2022-01-07] MEDS: Ibuprofen 600 MG Tablet PO ×4 (01:55→20:31)
[2022-01-07] MEDS: Acetaminophen 500 MG Tablet 1000 MG PO ×4 (01:57→20:31)
[2022-01-07 04:00] VITALS: BP 118/74; PULSE 73; RESP 14; TEMP 36.1
[2022-01-07] MEDS: oxyCODONE 5 MG Tablet PO ×2 (04:20→17:09)
[2022-01-07 06:56] LABS: Hemoglobin 7.8 g/dL (12.0-15.0); Mean Corp Hgb Conc 28.9 g/dL (32-36); Mean Corpuscular Hgb 21.3 pg (27.0-32.0); Mean Corpuscular Volume 73.8 fL (81-99); Mean Platelet Vol. 10.8 fl (6.2-12.0); POSITIVE MORPHOLOGY YES; Platelet Count 308 K/mm3 (150-450); RBC Distribution Width CV 23.3 % (11.6-14.6); Red Blood Count 3.66 M/mm3 (4.2-5.4); White Blood Count 15.1 K/mm3 (4.4-11.0)
[2022-01-07 06:59] LABS: Scan Indicated on CBC? Y/N YES- FLAGS NOTED
[2022-01-07 08:00] VITALS: BP 124/69; PULSE 78; RESP 16; TEMP 36.6; O2SAT 97
[2022-01-07] MEDS: Senna/Docusate Sodium 1 Tablet PO (08:10)
--- NOTE | 2022-01-07 08:47 | PCM.PN.OB ---
Subjective Subjective Pain well controlled. Average lochia. Denies any lightheadedness, shortness of breath palpitations or dizziness when ambulating. Passing flatus but no bowel movement yet. Objective Data Objective Data Vital Signs: Vital Signs Temp Pulse Resp BP Pulse Ox 97.8 F 78 16 124/69 H 97 01/07/22 08:00 01/07/22 08:00 01/07/22 08:00 01/07/22 08:00 01/07/22 08:00 Oxygen Delivery Method Room Air Weight: 70.2 kg Body Mass Index (BMI) 28.3 Intake & Output: Intake and Output for Last 24 Hours 01/05/22 01/06/22 01/07/22 23:59 23:59 23:59 Intake Total 3136.66 / 3136.66 50 / 50 Output Total 2100 / 2100 300 / 300 Balance 1036.66 / 1036.66 -250 / -250 Lab / Micro Data Result Diagrams: 01/07/22 06:30 Labs: Laboratory Results - last 24 hr 01/07/22 06:30: WBC 15.1 H, RBC 3.66 L, Hgb 7.8 L, Hct 27.0 L, MCV 73.8 L, MCH 21.3 L, MCHC 28.9 L, RDW Std Deviation 47.0 H, RDW Coeff of Macy 23.3 H, Plt Count 308, MPV 10.8, Differential Comment COMMENT Micro: Microbiology 01/04/22 20:42 Nasal Secretion SARS-CoV-2 Antigen (Rapid) - Final Physical Exam Const alert General Appearance: cooperative GI GI Narrative: soft, moderate distention, fundus firm, appropriately tender. Incisional bandage with moderate sanguinous drainage on it saturating approximately 40% of the surface area Assessment & Plan (1) Acute on chronic blood loss anemia: PLAN: Postoperative day #2 status post primary section. Calculated blood loss is 845 cc. Patient had chronic antepartum anemia. She is tolerating the anemia well. Her IV is out. I offered the patient IV iron versus p.o. iron. Would like to initiate p.o. iron. is in the special care nursery but doing well. Patient will likely be discharged home tomorrow. will likely need to stay in the special care nursery after patient's discharge. (2) Delivery by section:
[2022-01-07] MEDS: Ferrous Gluconate 324 MG Tablet PO (11:08)
[2022-01-07] MEDS: Prenatal Vits Tablet 1 TABLET PO (11:08)
[2022-01-07 13:37] VITALS: BP 129/74; PULSE 92; RESP 16; TEMP 37.4; O2SAT 97
[2022-01-07 20:32] VITALS: BP 110/70; PULSE 75; RESP 14; TEMP 36.3; O2SAT 98
[2022-01-07] MEDS: FLUoxetine 20 MG Capsule 40 MG PO (22:54)
[2022-01-08 01:57] VITALS: BP 121/69; PULSE 78; RESP 14; TEMP 36.6
[2022-01-08] MEDS: Acetaminophen 500 MG Tablet 1000 MG PO ×3 (01:58→13:28)
[2022-01-08] MEDS: Ibuprofen 600 MG Tablet PO ×2 (01:59→08:03)
[2022-01-08 08:12] VITALS: BP 107/65; PULSE 82; RESP 16; TEMP 36.1; O2SAT 98
[2022-01-08] MEDS: Prenatal Vits Tablet 1 TABLET PO (11:37)
[2022-01-08] MEDS: Ferrous Gluconate 324 MG Tablet PO (11:37)
[2022-01-08] MEDS: Senna/Docusate Sodium 1 Tablet PO (11:37)
--- NOTE | 2022-01-08 12:29 | PCM.PN.OB ---
Subjective Subjective Denies complaints Objective Data Objective Data Vital Signs: Vital Signs Temp Pulse Resp BP Pulse Ox 97.0 F L 82 16 107/65 98 01/08/22 08:12 01/08/22 08:12 01/08/22 08:12 01/08/22 08:12 01/08/22 08:12 Oxygen Delivery Method Room Air Weight: 154 lb 12.232 oz Body Mass Index (BMI) 28.3 Intake & Output: Intake and Output for Last 24 Hours 01/06/22 01/07/22 01/08/22 23:59 23:59 23:59 Intake Total 50 / 50 700 / 700 Output Total 300 / 300 Balance -250 / -250 700 / 700 Lab / Micro Data Result Diagrams: 01/07/22 06:30 Micro: Microbiology 01/04/22 Unknown Genital vaginal Group B Streptococcus Culture - Final Group B Beta Streptococcus is not isolated. 01/04/22 20:42 Nasal Secretion SARS-CoV-2 Antigen (Rapid) - Final Physical Exam Const alert, oriented x3 and no apparent distress HEENT normocephalic GI soft to palpation, non-tender and non-distended GI Narrative: fundus firm, mid & below umbilicus Incision - bandage c/d/i Extremity normal to inspection and no calf tenderness Assessment & Plan (1) Acute on chronic blood loss anemia: COMMENT: POD#3 PLAN: Continue iron (2) Lactating mother: (3) History of depression: PLAN: Continue prozac Social work consult in progress (4) Delivery by section: PLAN: Routine PP care and d/c to home today
--- NOTE | 2022-01-08 12:31 | DS.PCM_ITS ---
Providers Date of Admission: 01/04/22 Primary Care Physician: Ramiro Aguirre MD Reason For Visit: LABOR Diagnosis Discharge Diagnosis (1) Delivery by section: Status: Acute Medications at Discharge Home Medications ondansetron 4 mg PO Q8H PRN #10 tab 06/25/21 vit-iron fum-folic ac 1 tab PO DAILY 01/01/22 acetaminophen 1,000 mg PO Q6H #60 tab 01/08/22 ferrous gluconate 324 mg PO LUNCH #30 tab 01/08/22 fluoxetine 40 mg PO QHS #60 cap 01/08/22 ibuprofen 600 mg PO Q6H PRN #30 tab 01/08/22 oxycodone 5 mg PO Q8H PRN 4 Days #10 tab 01/08/22 Hospital Course Operations section Summary of Care Provided Hospital Course: Patient presented in labor. She went on to have a primary c- section - see operative note. In the PP period she did well. Heme - HDS, on iron for acute on chronic blood loss anemia PP depression - on prozac and s/p social work consult GI/ - no issues Weight / BMI Weight Weight: 154 lb 12.232 oz Body Mass Index (BMI) 28.3 ABG / Lab / Microbiology Data Result Diagrams: 01/07/22 06:30 Microbiology: Microbiology 01/04/22 Unknown Genital vaginal Group B Streptococcus Culture - Final Group B Beta Streptococcus is not isolated. 01/04/22 20:42 Nasal Secretion SARS-CoV-2 Antigen (Rapid) - Final D/C Instructions Discharge Diet: No restrictions Discharge Activity: May Shower May resume sexual activity in: 6 weeks Weight Bearing Status: Weight bearing as tolerated Call your doctor if your incision/area has: Continuous Slow Oozing, Sudden Increased Bleeding, Increased Pain/ Swelling, Increased Redness, Foul Smelling Discharge and Swelling at the incision site Call your doctor if you observe: Fever of 101 or Higher, Coldness, Increased Pain, Change in Color, Inability to urinate, Inability to have a bowel movement, Using more than 1 pad per hour, Shortness of breath, Dizziness, Fainting spells, Chest pain, Increased palpitations (irregular heartbeat), Calf discomfort and Uncontrolled pain Suture Line Care: Avoid Pulling/Pushing and Avoid Pinching/Bending Remove Dressing in: 1 week Cleanse incision/area with: Soap & Water Please Follow Up With: Reno Gillespie MD When: Follow up in 2 and 6 weeks for visits. Meaningful Use Info Meaningful Use Diagnoses (Choose all that apply): None applicable Discharge Plan Admission Admit Date/Time: 01/04/22 20:13 Primary Reason for Your Visit: section Attending Provider: Leonila Holley Primary Care Provider: Ramiro Aguirre Discharge Orders/Prescriptions Prescriptions: New acetaminophen 500 mg Tablet 1,000 mg PO Q6H Qty: 60 RF: 1 ibuprofen 600 mg Tablet 600 mg PO Q6H PRN (Reason: Abdominal Pain) Qty: 30 RF: 0 fluoxetine 20 mg Capsule 40 mg PO QHS Qty: 60 RF: 1 oxycodone 5 mg Tablet 5 mg PO Q8H PRN (Reason: Pain Score 4-10) 4 Days Qty: 10 RF: 0 ferrous gluconate 324 mg (37.5 mg iron) Tablet 324 mg PO LUNCH Qty: 30 RF: 2 Continued ondansetron 4 mg tablet,disintegrating 4 mg PO Q8H PRN (Reason: nausea and vomiting) Qty: 10 RF: 0 vit-iron fum-folic ac 65 mg iron- 1 mg Tablet 1 tab PO DAILY RF: 0 Discontinued fluoxetine 20 mg capsule 40 mg PO DAILY RF: 0 Referrals / Follow Up: Ramiro Aguirre MD [Primary Care Provider] - Disposition Disposition (needs filled in before D/C Order can be placed): Home, Self Care
--- NOTE | 2022-01-08 16:45 | CASEMGMT ---
Social Work Assessment Labor and Delivery Unit Patient Address: [address] [place] [address] [address], [place] [id number] Phone number: [phone] Date of Referral: 01/05/2022 Referred By: Dr. Holley Date of Intervention: 01/08/2022 Reason for Referral: Maternal THC use 2 and half months ago, negative toxicology and depression History obtained from: Medical records including past social work assessment and mother of baby (MOB) Kimberly Taylor Household composition: KHUSHBOO reports to live with the father of baby and older children. Home situation is reported as safe and adequate. Patient's parent/guardian status: KHUSHBOO is a 26-year-old female, to the father of baby (FOB) Tanvir Brewer (date of 1996) since March 2021. MOB and FOB have been together for 3 years. KHUSHBOO denies any type of domestic or intimate partner violence in this relationship. MOB and FOB now have 2 children together, with the FOB having additional child prior to this relationship. FOB's oldest daughter is Silvia who was born in 2018 and had regular visitation. KHUSHBOO's minor children include Tramaine Brewer born 08/15/2020) and baby boy Tanvir CoyJr. (born 01/05/2022). Medical History: KHUSHBOO is 2, para 1 now 2 after delivering Tanvir on 01/05/2022. Tanvir delivered at 36 weeks gestation. weight 3055 g. Apgars 1-6-7 at 1-5-2010 minutes of life respectively. Tanvir admitted into the special care unit at [facility] for issues related to prematurity and respiratory distress. Note KHUSHBOO's first child was delivered at 33 weeks gestation. Noted in medical record that the MOB had a fall 1 week prior to that delivery. Noted also in the record that on the paternal side of the family there is a history of spina bifida. Educational Status: KHUSHBOO graduated from high school. No issues with reading, writing, or learning comprehension. 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 Plans to return back to this employment after maternity leave. 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 No reported issues with finances at time. Supplies: KHUSHBOO reports to have all necessary supplies including a crib, bassinet, car seat, clothing, wipes, and a breast pump. MOB is providing breastmilk. Childcare/Caregiver(s): MOB and FOB will be the primary caregivers. 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 Programs/Agencies Involved: MOB reports to have Medicaid through job and family services and back. No other agency involvement reported. Children Services/Legal Issues: No reported legal issues. History of children services with JUDI's oldest child relating to that child's mother. No other children services history reported. Behavioral Health Issues: Mental Health History: KHUSHBOO has a history of depression and anxiety as well as a history of depression. History of treatment with Prozac reports this works well. Plans to stay on this in the timeframe. Denies any history of suicidal or homicidal ideation, attempts. Substance Use History: MOB reports history of marijuana usage, with the record indicating for 40 years. MOB reports last use was about 2 and half months ago. Use of marijuana during this was reported to be for nausea, vomiting, increasing appetite, pain with sleeping and restless leg. Denies any other illicit substance use history. Reportedly currently abstinent of marijuana. Family History: JUDI has a history of bipolar 1 disorder. Drug Screens: No testing noted. Drug screen for MOB upon admission, 01/04/2022, was negative. Infant's urine drug screen is negative. Meconium is pending. Family/Social Stressors: Infant delivered early and admitted into the [facility] special care nursery. Support Systems: MOB reports to have good support from the FOB and from family. Denies any concerns with support at this time. Depression/Shaken Baby/Safe Sleeping: Information provided on shaken baby prevention and safe sleeping. Reviewed mood and anxiety disorders, risk factors, and the importance of seeking out help and support. ASSESSMENT: Met with MOB and introduced to self and social work role. MOB pleasant, cooperative, and calm. MOB reports to have all necessary supplies to care for the infant, to have adequate support at home going from FOB and family, and also to feel connection with the baby. MOB reports plan to remain on antidepressant medication in the timeframe and expresses understanding for risk of depression due to history of such. MOB reports current abstinence of marijuana and plans to remain abstinent at this time. Educated MOB to recommendation of not using marijuana, especially while breast-feeding. MOB expressed understanding. There have been no voiced concerns regarding parent-child interactions or bonding. Educated MOB to the possibility of children services follow-up, due to infant exposure to marijuana in utero. Answered MOB's questions. MOB accepting of this information without issue. Safe Plan of Care for related to substance use: Continue with abstinence. Should anything change use would be in the evenings only and not the marijuana would be locked up and out of reach of children. PLAN: MOB and discharging home with medically ready from their respective units. Provided MOB with mood and anxiety disorder packet. Packet also on [facility] social media strategist resources. No other services requested or indicated other than monitoring for meconium drug screen results. -NIXON Sinha, SHAKER TENDER *This note was generated with PGP Trust[employer] software. It may contain incorrect words, spelling, and punctuation that were not noted in review of the chart prior to signing*
--- NOTE | 2022-01-15 15:59 | CASEMGMT ---
Social Work Labor and Delivery Unit Date of Intervention: 01.15.2022 Time of Intervention: 1510 Reason for follow-up:Communication with agency: [facility], , option #3, option #1 Summary of Family/Staff/Agency Contact: Infant's meconium drug screen results are back and positive for marijuana. 36ng/gm present per toxicology screen. Call children services agency above, and spoke with Kimberlyn Carrillo in the intake department. Referral due to substance exposed infant in utero. Brief maternal and histories provided. Assessment: MOB and Infant have been discharged home. MOB aware of potential for children services follow up. [facility] is aware of substance exposure. Plan: No further intervention indicated. -NIXON Sinha, DRILLER'S ASSISTANT
== END 2022-01-08 13:39 | disposition home or self-care (01) | DRG 787 ==
LOC: WP 20:17
PROVIDERS: Admitting Provider Obstetrics & Gynecology; PCP Family Medicine; Visit Provider Obstetrics & Gynecology
DX: O60.14X0 Preterm labor third trimester with preterm delivery third trimester, not applicable or unspecified (principal); D62 Acute posthemorrhagic anemia; F53.0 Postpartum depression; O64.8XX0 Obstructed labor due to other malposition and malpresentation, not applicable or unspecified; O99.02 Anemia complicating childbirth; Z37.0 Single live birth; Z3A.36 36 weeks gestation of pregnancy; O76 Abnormality in fetal heart rate and rhythm complicating labor and delivery; O99.345 Other mental disorders complicating the puerperium; O35.1XX0 Maternal care for (suspected) chromosomal abnormality in fetus, not applicable or unspecified; O66.5 Attempted application of vacuum extractor and forceps
CPT/HCPCS: 59025; 59050; 80307; 85025; 85027; 86850; 86900; 86901; 87081; 87653; 87811; 99218; J7120; A4216; G0378; J0702; J2405; Q9968

== ENCOUNTER 2024-01-28 22:00 | Emergency (ER) | payer MEDICAID, OTHER, SELFPAY ==
[2024-01-28 22:00] VITALS: BP 114/71; PULSE 82; RESP 16; TEMP 36.6; O2SAT 98; BMI 33.0
[2024-01-29 02:00] VITALS: BP 100/54; PULSE 68; RESP 16; O2SAT 97
[2024-01-29] MEDS: 0.9% Normal Saline (1000mL) 1,000 ML 999 ML IV ×2 (03:16→04:29)
[2024-01-29] MEDS: Ondansetron 4 MG/2 ML Vial IV (03:16)
--- NOTE | 2024-01-29 05:19 | EX.ED.DYSGE1 ---
HPI History of Present Illness Chief Complaint: Nausea/Vomiting Informant: patient Narrative Narrative: Patient is a 28-year-old female who is a G3, P2 approximately 7 weeks . She reports with her last 2 pregnancies she had severe vomiting. She states that over the last 5 to 7 days she has had persistent nausea and vomiting and the inability to keep any type of food or fluid down. She denies any abdominal pain any vaginal discharge or bleeding she denies any loose stool or diarrhea. She states that with her last she needed IV Zofran as well as IV fluids to help with symptom control and therefore comes in for evaluation [facility] Medical History (Updated 01/29/24 @ 05:[address] Vini Myers, DO) Postoperative pain History of depression Myocarditis History of pre-term labor depression Anxiety Depression Migraine History of delivery Home Medications ?Medication ?Instructions ?Recorded ?Last Taken ?Type vitamins-iron fumarate 65 1 tab PO DAILY 01/01/22 01/04/22 08:00 History mg iron-folic acid 1 mg tablet ondansetron 4 mg disintegrating 4 mg PO TID PRN nausea and 01/29/24 Unknown Rx tablet vomiting #21 tabs Allergy/AdvReac Type Severity Reaction Status Date / Time No Known Allergies Allergy Verified 01/28/24 22:00 Surgical History Delivery by section [place] teeth removed Social History Smoking Status: Never smoker ROS ROS ED Constitutional Constitutional ED: Denies chills or fever(s) ENT ENT ED: Denies sore throat Cardiovascular Cardiovascular: Denies chest pain Respiratory/Chest Respiratory/Chest: Denies cough or dyspnea Gastrointestinal Gastrointestinal: Reports nausea and vomiting; Denies abdominal pain or diarrhea Genitourinary Genitourinary ED: Denies dysuria, hematuria or urinary frequency Musculoskeletal Musculoskeletal: Denies back pain or myalgias Integumentary Denies rash Neurologic Neurologic: Denies headache(s), paresthesias or weakness Hematologic/Lymphatic Hematologic/Lymphatic: Denies easy bleeding or easy bruising EXAM Physical Exam Const Vital Signs: 01/28/24 22:00 01/29/24 02:00 01/29/24 06:30 Temperature 97.9 F 97.6 F L Temperature Source Temporal Pulse Rate 82 68 68 Respiratory Rate 16 16 16 Blood Pressure 114/71 100/54 L 119/79 Blood Pressure Mean 85 69 92 Pulse Ox 98 97 97 Oxygen Delivery Method Room Air Room Air Positive well nourished and well developed General Appearance ED: well developed; Negative for pallor HEENT HEENT Narrative: Mucous membranes are dry and tacky However no signs of infection noted in the posterior pharynx No tongue or lip swelling no oral lesions no airway edema or compromise Eyes PERRL and EOMs intact bilaterally General Eye ED: Negative for pale conjunctiva or scleral icterus Neck supple Resp normal respiratory effort and clear to auscultation bilaterally Cardio regular rate and regular rhythm Rate: other Other Details: Heart is regular rate and rhythm without murmurs rubs or gallops GI non-tender and non-distended GI Narrative: Abdomen is soft nontender and nondistended with hyperactive bowel sounds. No voluntary guarding or rigidity or pulsatile mass Auscultation: hyperactive bowel sounds Palpation: soft Back/Spine no CVA tenderness Extremity normal to inspection Neuro oriented x3, CN's II-XII intact bilaterally and no sensory deficits noted Sensorium / Orientation: alert Motor Exam: strength 5/5 throughout Psych mental status grossly normal Skin no rashes or lesions noted Skin Narrative: Skin turgor is slightly increased General Skin Exam: Negative for jaundice or pallor MDM MDM MDM Narrative Medical decision making narrative: Patient presented to the ER with stable vitals and a soft nonsurgical abdomen. She had dry mucous membranes and reported bouts of vomiting without oral replacement. As differential diagnosis is dehydration versus hyperemesis gravidarum I did elect to place an IV and give her 2 L of fluid with IV Zofran. As vitals are stable her abdomen is soft and nonsurgical and my concern for underlying intestinal infection or acute kidney injury or severe abnormality is low do not feel the need for laboratory or imaging studies. Also as patient does not have any vaginal discharge or bleeding I do not feel the need for emergent ultrasound as concern for ectopic or threatened miscarriage is low. After receiving IV fluids and Zofran patient reported feeling better she had no bouts of vomiting while in the ER and is otherwise safe for discharge History & Record Review Discussion w/independent historian: Patient Discharge Plan Triage Chief Complaint: Nausea/Vomiting ED Provider: Vini Myers Dx/Rx/DC Orders Clinical Impression: Hyperemesis gravidarum, Dehydration Instructions: ED Dehydration (Adult), ED Hyperemesis Gravidarum Prescriptions: New ondansetron 4 mg tablet,disintegrating 4 mg PO TID PRN (Reason: nausea and vomiting) Qty: 21 0RF No Action vit-iron fum-folic ac 65 mg iron- 1 mg Tablet 1 tab PO DAILY Stand Alone Forms: ED Work / School Excuse Primary Care Provider: Ramiro Aguirre Referrals: Ramiro Aguirre MD [Primary Care Provider] - Print Language: Urdu Disposition Disposition: Home, Self Care Discharge Date/Time: 01/29/24 06:31
[2024-01-29 06:30] VITALS: BP 119/79; PULSE 68; RESP 16; TEMP 36.4; O2SAT 97
== END 2024-01-29 06:31 | disposition home or self-care (01) ==
PROVIDERS: Emergency Provider Emergency Medicine; PCP Family Medicine; Visit Provider Emergency Medicine
DX: O21.0 Mild hyperemesis gravidarum (principal); E86.0 Dehydration; O99.281 Endocrine, nutritional and metabolic diseases complicating pregnancy, first trimester; Z3A.01 Less than 8 weeks gestation of pregnancy
CPT/HCPCS: 96361; 96374; 99282; J7030; J2405

== ENCOUNTER 2024-01-29 15:34 | Emergency (ER) | payer MEDICAID, OTHER, SELFPAY ==
[2024-01-29 15:34] VITALS: BP 120/64; PULSE 75; RESP 16; TEMP 36.4; O2SAT 100; BMI 33.1
--- NOTE | 2024-01-29 15:48 | EDS_ITS ---
HPI HPI - GI History of Present Illness Chief Complaint: Nausea/Vomiting Informant: patient Nausea/Vomiting/Emesis GI Symptom: Positive for Nausea and Vomiting Onset: Days Severity: Mild Diarrhea/Melena/Hematochezia GI Symptom: Negative for Diarrhea, Melena or Hematochezia Associated Symptoms Associated Symptoms: Negative for Dysuria, Frequency, Hematuria or Urgency Narrative Narrative: 28-year-old female G3, P2 AB 0. Currently 7 weeks . Due date 09/11/2024. Being seen by the [facility] REPAIRER HELPER group. States the last week she has had intermittent nausea and vomiting. No diarrhea. No dysuria. No fever. No abdominal pain. No vaginal bleeding or pelvic pain. No pelvic discharge. Was seen earlier this morning was treated felt better was discharged home. She does not believe the Zofran is working. Prior similar symptoms: Yes Recent Illness/Hospitalization: No PFSH PFSH Medical History Postoperative pain History of depression Myocarditis History of pre-term labor depression Anxiety Depression Migraine History of delivery Home Medications ?Medication ?Instructions ?Recorded ?Last Taken ?Type vitamins-iron fumarate 65 1 tab PO DAILY 01/01/22 01/04/22 08:00 History mg iron-folic acid 1 mg tablet ondansetron 4 mg disintegrating 4 mg PO TID PRN nausea and 01/29/24 Unknown Rx tablet vomiting #21 tabs Allergy/AdvReac Type Severity Reaction Status Date / Time No Known Allergies Allergy Verified 01/28/24 22:00 Surgical History Delivery by section [place] teeth removed Social History Smoking Status: Never smoker ROS ROS ED ROS Narrative Nausea and vomiting. No abdominal pain. No fever. No dysuria. No vaginal bleeding. Review of Systems ROS Unobtainable: Denies due to encephalopathy Constitutional Constitutional ED: Denies chills or fever(s) ENT ENT ED: Denies ear pain Cardiovascular Cardiovascular: Denies chest pain Respiratory/Chest Respiratory/Chest: Denies cough or dyspnea Gastrointestinal Gastrointestinal: Reports nausea and vomiting; Denies abdominal pain, constipation, diarrhea or melena Genitourinary Genitourinary ED: Denies dysuria or hematuria Musculoskeletal Musculoskeletal: Denies arthralgias, back pain, myalgias or neck pain Integumentary Denies abscess or Abrasions Neurologic Neurologic: Denies headache(s), paresthesias or weakness Psychiatric Psychiatric: Denies anxiety or depression Endocrine Endocrinology: Denies polydipsia, polyphagia or polyuria Hematologic/Lymphatic Hematologic/Lymphatic: Denies easy bleeding, easy bruising or lymphadenopathy Allergic/Immunologic Allergic/Immunologic ED: Denies mouth swelling, tongue swelling or urticaria EXAM Physical Exam Narrative Exam Narrative: 28-year-old female no acute distress. Vital signs stable afebrile. H EENT exam unremarkable. Mytrex membranes. Neck nontender no lymphadenopathy. Lungs cl ear to auscultation bilaterally. Heart regular rhythm rate about 75 no murmur. Abdomen soft nondistended normal bowel sounds no peritoneal signs. Right upper or right lower quadrant unremarkable. No pelvic or suprapubic tenderness. Moving all 4 extremities. Calves are nontender that edema or cords. Back nontender. Neurologically she is awake and alert with no focal motor deficits. Const Vital Signs: 01/29/24 15:34 Temperature 97.5 F L Temperature Source Temporal Pulse Rate 75 Respiratory Rate 16 Blood Pressure 120/64 Blood Pressure Mean 82 Pulse Ox 100 Oxygen Delivery Method Room Air Positive well nourished and well developed; Negative for cachectic, contractures or unkempt General Appearance ED: well developed and NAD; Negative for unkempt, cachectic, contractures or pallor Nutritional Appearance: Negative for cachectic HEENT Reports moist mucous membranes normocephalic and atraumatic; Negative for trauma or tenderness Eyes PERRL and EOMs intact bilaterally General Eye ED: Negative for pale conjunctiva or scleral icterus Neck no lymphadenopathy, supple and no JVD General: Negative for tenderness Carotids: Negative for other Resp normal respiratory effort and clear to auscultation bilaterally Effort and Inspection: Negative for respiratory distress Auscultation: Negative for rales, rhonchi or wheezes Cardio regular rate, regular rhythm, S1 normal heart sound, S2 normal heart sound and no murmurs Rate: Negative for bradycardia or tachycardic Rhythm: Negative for abnormal rhythm GI non-tender, non-distended and no masses Inspection: Negative for abdominal distention Auscultation: normoactive bowel sounds Palpation: soft; Negative for tender, guarding or rebound tenderness present Back/Spine no CVA tenderness General Back: Negative for CVA tenderness Cervical Spine: Negative for cervical spine tenderness Thoracic Spine / Upper Back: Negative for thoracic spinal tenderness Lumbar Spine / Lower Back: Negative for lumbar spinal tenderness Coccyx: Negative for other Extremity full ROM General Extremety ED: Negative for tenderness Neuro CN's II-XII intact bilaterally and moves all extremities Sensorium / Orientation: alert, oriented to person, oriented to place and oriented to time; Negative for orientation impaired, confused, lethargic or stuporous Motor Exam: strength 5/5 throughout Psych mental status grossly normal and thought process normal Appearance: Negative for unkempt Attitude: No agitated Mood & Affect: Negative for depressed, anxious or tearful Skin no wounds General Skin Exam: Negative for jaundice or pallor Lesions: no lesions Rashes: no rashes Trauma: Negative for abrasion or other Nails: Negative for discolored MDM MDM MDM Narrative Medical decision making narrative: 28-year-old female Ab0. Currently 7 weeks with nausea and. Suspect this is hyperemesis. She received IV fluids, Zofran and p.o. fluid challenge. She was seen here in the last 24 hours. Will check screening labs and a UA even though other than chronic anemia I do not expect to find much. She is having no urinary symptoms. Repeat exam at 4:46 PM patient doing well. Nausea resolved. She does not need any more meds. She was able to drink p.o. fluids. She and I discussed her labs. She feels comfortable to be discharged home. She has Zofran at home. She is a follow-up appointment with her OB group next week. She knows return if worse. She really does not have any reason to be admitted at this time. History & Record Review Discussion w/independent historian: Patient Additional record(s) reviewed:: Prior inpatient record, Prior outpatient record, Prior ED visit and Prior labs Lab Data Attestation: I reviewed the patient's lab results. Lab results narrative: CBC shows a white count of 16.1 patient often has a leukocytosis. H&H 12.9 and 40. Platelets 395. Electrolytes show gap 7. BUN of 4 creatinine 0.7 glucose 86. UA shows 5-10 white cells. Rare bacteria. No nitrites and no urinary symptoms on not going to treat that. Labs: Laboratory Results - last 24 hr 01/29/24 16:10 WBC 16.1 H RBC 5.30 Hgb 12.9 Hct 40.2 MCV 75.8 L MCH 24.3 L MCHC 32.1 RDW Std Deviation 43.9 RDW Coeff of Macy 16.2 H Plt Count 395 MPV 10.1 Immature Gran % (Auto) 0.500 Neut % (Auto) 79.8 H Lymph % (Auto) 13.9 L [place] % (Auto) 5.1 Eos % (Auto) 0.5 Baso % (Auto) 0.2 Absolute Neuts (auto) 12.9 H Absolute Lymphs (auto) 2.25 Nucleated RBC % 0 Sodium 136 Potassium 3.8 Chloride 108 H Carbon Dioxide 21.0 Anion Gap 7 BUN 4 L Creatinine 0.70 Estim Creat Clear Calc 120.01 Est GFR (MDRD) Af Amer 128 Est GFR (MDRD) Non-Af 106 BUN/Creatinine Ratio 5.7 L Glucose 86 Calcium 8.7 Urine Color Yellow Urine Clarity Sl. Cloudy Urine pH 6.0 Ur Specific [place] 1.010 Urine Protein Negative Urine Glucose (UA) Normal Urine Ketones 50 H Urine Occult Blood Negative Urine Nitrite Negative Urine Bilirubin Negative Urine Urobilinogen 1 H Ur Leukocyte Esterase 100 H Urine RBC 0 SEEN Urine WBC 5-10 SEEN Ur Squamous Epith Cells 10-25 SEEN Amorphous Sediment 1+ URATE Urine Bacteria RARE Urine Mucus 0 SEEN Discharge Plan Triage Chief Complaint: Nausea/Vomiting ED Provider: Lucas Boston Dx/Rx/DC Orders Clinical Impression: Hyperemesis gravidarum, First trimester , Vomiting Instructions: ED Hyperemesis Gravidarum Prescriptions: No Action vit-iron fum-folic ac 65 mg iron- 1 mg Tablet 1 tab PO DAILY ondansetron 4 mg tablet,disintegrating 4 mg PO TID PRN (Reason: nausea and vomiting) Qty: 21 0RF Primary Care Provider: Ramiro Aguirre Referrals: Danyell Mckeon MD [Med Staff - Active Staff] - As Needed Ramiro Aguirre MD [Primary Care Provider] - Activity Restrictions/Additional Instructions: Plenty of fluids and rest. Slowly increase your diet as tolerated. Zofran as needed for nausea. You may swallow it or let it dissolve under your tongue. Follow-up with your METER REPAIRER HELPER with your scheduled appointment. Return to emergency department if you are unable to keep fluids down. At this time there is no r pavel to admit you to the hospital. Print Language: Wolof Disposition Disposition: Home, Self Care
[2024-01-29] MEDS: 0.9% Normal Saline (1000mL) 1,000 ML 999 ML IV (16:11)
[2024-01-29] MEDS: Ondansetron 4 MG/2 ML Vial IV (16:11)
[2024-01-29 16:16] LABS: Mucous, Urine 0 SEEN /hpf (<or=2+); Red Blood Cells-Urine 0 SEEN /hpf (0-5)
[2024-01-29 16:19] LABS: Color, Urine Yellow (Yellow); Glucose, Dipstick Normal (Normal); Ketone-Dipstick 50 mg/dl (Negative); Leukocyte Esterase-Dipstick 100 /ul (Negative); Nitrite-Dipstick Negative (Negative); Occult Blood-Urine Negative /ul (Negative); Protein-Dipstick Negative (Negative); Urine Bilirubin Dipstick Negative (Negative); Urine Clarity Sl. Cloudy (Clear); Urine Urobilinogen 1 mg/dl (Normal)
[2024-01-29 16:24] LABS: Squamous Epithelial Cells - UA 10-25 SEEN /hpf (5-10); White Blood Cells 5-10 SEEN /hpf (0-5)
[2024-01-29 16:25] LABS: Amorphous Sediment 1+ URATE; Bacteria RARE /hpf (None Seen)
[2024-01-29 16:29] LABS: Absolute Lymphocyte Count 2.25 X10^3/uL (0.83-4.51); Absolute Neutrophil Count 12.9 X10^3/uL (2.0-7.7); Basophil# 0.03 X10^3/uL; Basophil% 0.2 % (0-1); Eosinophil# 0.08 X10^3/uL; Eosinophils% 0.5 % (0-5); Hematocrit 40.2 % (37-47); Hemoglobin 12.9 g/dL (12.0-15.0); Lymphocyte # 2.25 X10^3/ul (0.83-4.51); Lymphocyte % 13.9 % (19-41); Mean Corp Hgb Conc 32.1 g/dL (32-36); Mean Corpuscular Hgb 24.3 pg (27.0-32.0); Mean Corpuscular Volume 75.8 fL (81-99); Mean Platelet Vol. 10.1 fl (6.2-12.0); Monocyte# 0.82 X10^3/uL; Monocyte% 5.1 % (0-10); NRBC Flagged by Analyzer 0 % (0-5); Neutrophil # 12.88 X10^3/uL (2.7-7.7); Neutrophil % 79.8 % (47-70); Platelet Count 395 K/mm3 (150-450); RBC Distribution Width CV 16.2 % (11.6-14.6); RBC Distribution Width SD 43.9 fl (35.1-43.9); White Blood Count 16.1 K/mm3 (4.4-11.0)
[2024-01-29 16:32] LABS: Anion Gap 7 (5-15); BUN 4 mg/dL (7-18); BUN/Creat Ratio 5.7 RATIO (10-20); Calcium,Total 8.7 mg/dL (8.5-10.1); Chloride 108 mmol/L (98-107); EST Glomerular Filtration Rate 106 mL/min (>60); Est Glom Filt Rate - Afr Amer 128 mL/min (>60); Estimated Creatinine Clearance 120.01 ml/min; Glucose 86 mg/dL (74-106); Potassium 3.8 mmol/L (3.5-5.1); Sodium Level 136 mmol/L (136-145)
[2024-01-29 17:05] VITALS: BP 100/69; PULSE 67; RESP 19; TEMP 36.4; O2SAT 99
== END 2024-01-29 17:06 | disposition home or self-care (01) ==
PROVIDERS: Emergency Provider Emergency Medicine; PCP Family Medicine; Visit Provider Emergency Medicine
DX: O21.0 Mild hyperemesis gravidarum (principal); Z3A.01 Less than 8 weeks gestation of pregnancy
CPT/HCPCS: 80048; 81001; 85025; 96361; 96374; 99283; J7030; A4216; J2405

== ENCOUNTER 2024-01-31 18:04 | Observation (INO) | payer OTHER, MEDICAID, SELFPAY ==
[2024-01-31 18:04] VITALS: BP 124/65; PULSE 88; RESP 17; TEMP 36.4; O2SAT 100; BMI 31.8
--- NOTE | 2024-01-31 18:14 | EDS_ITS ---
HPI HPI - GI History of Present Illness Chief Complaint: Abd Pain Narrative Narrative: 28-year-old female G3, P2 Ab0 at approximately 8 weeks gestation presents with continued nausea and vomiting. She has been seen over the last week a few times times in the ED. Her last visit was 2 days ago, when she was seen twice in 1 day. She had been given IV fluids and Zofran at home. She states last evening she developed diarrhea, along with her continued nausea and vomiting. Anytime she tries to eat or drink anything she will vomit 5 minutes later. She denies any vaginal bleeding or cramping but is having diffuse abdominal cramping. She has had more than 5 episodes of watery stool in the last 24 hours and just as much vomiting. Her ADVERTISING ACCOUNT REPRESENTATIVE is Dr. Alford through the [facility]. [facility] Medical History Postoperative pain History of depression Myocarditis History of pre-term labor depression Anxiety Depression Migraine History of delivery Home Medications ?Medication ?Instructions ?Recorded ?Last Taken ?Type vitamins-iron fumarate 65 1 tab PO DAILY 01/01/22 01/04/22 08:00 History mg iron-folic acid 1 mg tablet duloxetine 60 mg capsule,delayed 60 mg PO DAILY 01/31/24 Unknown History release Allergy/AdvReac Type Severity Reaction Status Date / Time No Known Allergies Allergy Verified 01/31/24 18:06 Surgical History Delivery by section [place] teeth removed Social History Smoking Status: Never smoker ROS ROS ED ROS Narrative Constitutional: No fever, no chills. HEENT: No sore throat. No neck pain. No loss of vision. No rhinorrhea. Cardiovascular: No chest pain. No palpitations. No pedal edema. Respiratory: No cough, no shortness of breath. Abdominal: Positive diffuse, crampy abdominal pain. Positive nausea and vomiting, no hematemesis. Multiple episodes of watery diarrhea. Genitourinary: No dysuria. No hematuria. No vaginal bleeding or pelvic cramping. Musculoskeletal: No myalgias. No arthralgias. Neurologic: No headaches. No dizziness. No lightheadedness. Skin: No rash. No change in color. Psychiatric: No depression. No anxiety. EXAM Physical Exam Narrative Exam Narrative: Afebrile. Vital signs noted. HEENT: Normocephalic. Atraumatic. PERRL, EOMI. Neck soft and supple. No point tenderness or step off. Cardiovascular: Regular rate and rhythm. No murmurs, rubs, or gallops appreciated. Respiratory: No tachypnea. Lungs clear to auscultation bilaterally. Gastrointestinal: Abdomen soft, minimal diffuse tenderness with normoactive bowel sounds. No rebound or guarding. Neurological: Awake. Alert. Nonfocal, nonlateralizing. Skin: No rash. Normal color. No pallor. Musculoskeletal: No pedal edema. Full range of motion extremities. Const Vital Signs: 01/31/24 18:04 Temperature 97.6 F L Temperature Source Temporal Pulse Rate 88 Respiratory Rate 17 Blood Pressure 124/65 H Blood Pressure Mean 84 Pulse Ox 100 Oxygen Delivery Method Room Air MDM MDM MDM Narrative Medical decision making narrative: I reviewed the patient's prior records. She was seen twice on the , and received IV fluids and had laboratories that were checked. I do not feel she re quires CT imaging of her abdomen as I have low suspicion for obstruction or any acute pathology. Think she may have more of a gastroenteritis in combination with hyperemesis gravidarum. She will be bolused normal saline, administered intramuscular Bentyl and Zofran IV. I will check a CBC, CMP, lipase to rule out pancreatitis, and also a urinalysis to check her for ketones. I reviewed her laboratory work and she has an elevated white count of 15, down from previous of 16 when compared to prior laboratories. Hemoglobin normal at 14.1 with hematocrit 43.3, platelet count 415. Review of her CMP shows potassium slightly low at 3.4 with a BUN of 6 and creatinine 0.77, glucose appropriately elevated at 92. Lipase normal at 19. While urinalysis was obtained and reviewed and shows 10-25 WBCs, I feel it is a contaminated specimen with 5-10 epithelial cells. She does have 150 ketones in her urine. I can send for culture. Upon repeat examination, she states she feels slightly improved. However, as this is her third visit in 3 days, I discussed patient with Dr. Gillespie with ADVERTISING ACCOUNT REPRESENTATIVE. Patient will be observed overnight for IV fluids and for her nausea and vomiting with . She will be given 1 dose of Pepcid intravenously here as well. Disposition is assigned to observation on the medical surgical floor. History & Record Review Discussion w/independent historian: Patient and Family (Grandmother) Lab Data Attestation: I reviewed the patient's lab results. Labs: Laboratory Results - last 24 hr 01/31/24 18:23 WBC 15.0 H RBC 5.72 H Hgb 14.1 Hct 43.3 MCV 75.7 L MCH 24.7 L MCHC 32.6 RDW Std Deviation 43.9 RDW Coeff of Macy 16.4 H Plt Count 415 MPV 9.8 Immature Gran % (Auto) 0.300 Neut % (Auto) 88.1 H Lymph % (Auto) 6.6 L [place] % (Auto) 4.8 Eos % (Auto) 0.1 Baso % (Auto) 0.1 Absolute Neuts (auto) 13.2 H Absolute Lymphs (auto) 0.99 Nucleated RBC % 0 Sodium 137 Potassium 3.4 L Chloride 105 Carbon Dioxide 20.0 L Anion Gap 12 BUN 6 L Creatinine 0.77 Estim Creat Clear Calc 106.83 Est GFR (MDRD) Af Amer 116 Est GFR (MDRD) Non-Af 96 BUN/Creatinine Ratio 7.8 L Glucose 92 Calcium 9.5 Total Bilirubin 0.60 AST 14 L ALT 26 Alkaline Phosphatase 71 Total Protein 7.8 Albumin 3.4 Globulin 4.4 H Albumin/Globulin Ratio 0.8 L Lipase 19 Urine Color Yellow Urine Clarity Sl. Cloudy Urine pH 5.0 Ur Specific [place] 1.025 Urine Protein 30 H Urine Glucose (UA) Normal Urine Ketones 150 A* Urine Occult Blood 25 H Urine Nitrite Negative Urine Bilirubin 1 H Urine Urobilinogen 1 H Ur Leukocyte Esterase 500 H Urine RBC 0-5 SEEN Urine WBC 10-25 SEEN Ur Squamous Epith Cells 5-10 SEEN Urine Bacteria 2+ Urine Mucus 0 SEEN Management Discussion w/another healthcare provider: Design Technician (Dr. Gillespie, ADVERTISING ACCOUNT REPRESENTATIVE) Discharge Plan Dx/Rx/DC Orders Clinical Impression: Hyperemesis gravidarum, First trimester , Nausea and vomiting during , Abdominal cramping, Diarrhea Disposition Disposition: [facility]
[2024-01-31] MEDS: Ondansetron 4 MG/2 ML Vial IV ×2 (18:24→20:57)
[2024-01-31] MEDS: 0.9% Normal Saline (1000mL) 1,000 ML 999 ML IV (18:24)
[2024-01-31] MEDS: Dicyclomine 20 MG/2 ML Vial IM (18:24)
[2024-01-31 18:33] LABS: Mucous, Urine 0 SEEN /hpf (<or=2+)
[2024-01-31 18:34] LABS: Absolute Lymphocyte Count 0.99 X10^3/uL (0.83-4.51); Absolute Neutrophil Count 13.2 X10^3/uL (2.0-7.7); Basophil# 0.02 X10^3/uL; Basophil% 0.1 % (0-1); Eosinophil# 0.02 X10^3/uL; Eosinophils% 0.1 % (0-5); Hematocrit 43.3 % (37-47); Hemoglobin 14.1 g/dL (12.0-15.0); Lymphocyte # 0.99 X10^3/ul (0.83-4.51); Lymphocyte % 6.6 % (19-41); Mean Corp Hgb Conc 32.6 g/dL (32-36); Mean Corpuscular Hgb 24.7 pg (27.0-32.0); Mean Corpuscular Volume 75.7 fL (81-99); Mean Platelet Vol. 9.8 fl (6.2-12.0); Monocyte# 0.72 X10^3/uL; Monocyte% 4.8 % (0-10); NRBC Flagged by Analyzer 0 % (0-5); Neutrophil # 13.21 X10^3/uL (2.7-7.7); Neutrophil % 88.1 % (47-70); Platelet Count 415 K/mm3 (150-450); RBC Distribution Width CV 16.4 % (11.6-14.6); RBC Distribution Width SD 43.9 fl (35.1-43.9); Red Blood Count 5.72 M/mm3 (4.2-5.4)
[2024-01-31 18:53] LABS: Color, Urine Yellow (Yellow); Glucose, Dipstick Normal (Normal); Leukocyte Esterase-Dipstick 500 /ul (Negative); Nitrite-Dipstick Negative (Negative); Occult Blood-Urine 25 /ul (Negative); Protein-Dipstick 30 mg/dl (Negative); Specific Gravity, Urine 1.025 (1.002-1.030); Urine Clarity Sl. Cloudy (Clear); Urine Urobilinogen 1 mg/dl (Normal)
[2024-01-31 18:57] LABS: Ketone-Dipstick 150 mg/dl (Negative); Urine Bilirubin Dipstick 1 mg/dL (Negative)
[2024-01-31 19:02] LABS: Bacteria 2+ /hpf (None Seen); Red Blood Cells-Urine 0-5 SEEN /hpf (0-5); Squamous Epithelial Cells - UA 5-10 SEEN /hpf (5-10); White Blood Cells 10-25 SEEN /hpf (0-5)
[2024-01-31 19:18] LABS: ALB/GLOB Ratio 0.8 RATIO (0.9-2.4); AST(SGOT) 14 U/L (15-37); Alanine Aminotransfer ALT/SGPT 26 U/L (13-56); Albumin, Serum 3.4 g/dL (3.2-5.0); Alkaline Phosphatase 71 U/L (45-117); Anion Gap 12 (5-15); BUN 6 mg/dL (7-18); BUN/Creat Ratio 7.8 RATIO (10-20); Calcium,Total 9.5 mg/dL (8.5-10.1); Chloride 105 mmol/L (98-107); Creatinine, Serum 0.77 mg/dL (0.55-1.02); EST Glomerular Filtration Rate 96 mL/min (>60); Est Glom Filt Rate - Afr Amer 116 mL/min (>60); Estimated Creatinine Clearance 106.83 ml/min; Globulin 4.4 g/dL (2.2-4.2); Glucose 92 mg/dL (74-106); Lipase 19 U/L (13-75); Potassium 3.4 mmol/L (3.5-5.1); Protein, Total 7.8 g/dL (6.4-8.2); Sodium Level 137 mmol/L (136-145)
[2024-01-31 20:00] VITALS: BP 116/79; PULSE 81; RESP 16; TEMP 37.2; O2SAT 98
[2024-01-31] MEDS: Famotidine 200 MG/20 ML MDV 20 MG in 0.9% Normal Saline (Pres. free 8 ML 300 MG IV (20:11)
[2024-01-31 21:35] VITALS: BMI 32.2
[2024-01-31 21:42] VITALS: BP 122/75; PULSE 76; RESP 16; TEMP 36.6; O2SAT 100
[2024-01-31] MEDS: Pyridoxine HCl 50 MG Tablet PO (22:17)
[2024-01-31] MEDS: Acetaminophen 500 MG Tablet 1000 MG PO (22:17)
[2024-01-31] MEDS: Famotidine 20 MG Tablet PO (22:18)
[2024-01-31] MEDS: KCL 20MEQ in 0.9% NS 20 MEQ/1,000 ML IV.SOLN. 125 MEQ IV (22:43)
[2024-01-31] MEDS: DiphenhydrAMINE 25 MG Capsule PO (23:39)
[2024-01-31] MEDS: proCHLORPERazine 10 MG/2 ML Vial 5 MG IV (23:43)
[2024-02-01] MEDS: KCL 20MEQ in 0.9% NS 20 MEQ/1,000 ML IV.SOLN. 125 MEQ IV (05:33)
[2024-02-01 05:34] VITALS: BP 128/72; PULSE 71; RESP 16; TEMP 37; O2SAT 99
[2024-02-01] MEDS: Ondansetron 4 MG/2 ML Vial IV ×2 (05:41→15:06)
[2024-02-01 07:56] VITALS: PULSE 70
[2024-02-01] MEDS: Pyridoxine HCl 50 MG Tablet PO (08:03)
[2024-02-01] MEDS: DiphenhydrAMINE 25 MG Capsule PO (10:04)
[2024-02-01] MEDS: Famotidine 20 MG Tablet PO (10:04)
[2024-02-01 10:05] VITALS: BP 112/64; PULSE 83; RESP 20; TEMP 37; O2SAT 98
[2024-02-01] MEDS: 0.9% Saline Lock 10 ML Syringe IV ×2 (10:15→15:07)
[2024-02-01] MEDS: proCHLORPERazine 10 MG/2 ML Vial 5 MG IV (10:15)
--- NOTE | 2024-02-01 11:40 | NURSING ---
1000 Dr Gillespie called to find out how pt is doing, informed when assessment was done pt had mild amt of nausea, ate breakfast had apple and a few bites of pancakes. Nurse entered room while talking to the doctor and pt c/o nausea. Pt was informed that the Doctor wants her to eat every 1 to 2 hours...something lite like crackers, and eat a bland diet.
[2024-02-01] MEDS: Acetaminophen 500 MG Tablet 1000 MG PO (12:56)
--- NOTE | 2024-02-01 14:18 | HP.PCM.OB_ITS ---
HPI - General General Date of Admission: 01/31/24 Chief Complaint: Nausea and vomiting HPI Narrative QUE JEONG, is a 28 F who presents at 8 weeks gestation presented to the ED last evening with continued nausea and vomiting. She has been seen over the last week a few times times in the ED. She developed some diarrhea 2 nights ago along with her continued nausea and vomiting. Anytime she triesd to eat or drink anything she will vomit 5 minutes later. She denies any vaginal bleeding or cramping but is had some abdominal cramping when presented to the ED. Today she is feelikng much better. Patient has some mild nausea but denies emesis. She is tolerating PO and feels ready to go home. Maternal Data Information Gestational age: 8 weeks (exact EDC unknown at this time) [facility] Medical History Postoperative pain History of depression Myocarditis History of pre-term labor depression Anxiety Depression Migraine History of delivery Home Medications ?Medication ?Instructions ?Recorded ?Last Taken ?Type vitamins-iron fumarate 65 1 tab PO DAILY 01/01/22 01/04/22 08:00 History mg iron-folic acid 1 mg tablet duloxetine 60 mg capsule,delayed 60 mg PO DAILY 01/31/24 Unknown History release Allergy/AdvReac Type Severity Reaction Status Date / Time No Known Allergies Allergy Verified 01/31/24 18:06 Surgical History Delivery by section [place] teeth removed Social History Smoking Status: Never smoker History 2 Elective abortions Hx Para 1 Spontaneous abortions Hx # Term Pregnancies Ectopic pregnancies Hx # Pregnancies Multiple births # of living children Vital Signs Vital Signs Vital Signs: 01/31/24 18:04 01/31/24 20:00 01/31/24 21:42 Temperature 97.6 F L 99.0 F 97.9 F Temperature Source Temporal Oral Pulse Rate 88 81 76 Respiratory Rate 17 16 16 Respiratory Effort Respiratory Depth Respiratory Pattern Blood Pressure 124/65 H 116/79 122/75 H Blood Pressure Mean 84 91 90 Blood Pressure Source Monitor Blood Pressure Position Supine Blood Pressure Location Right Arm Pulse Ox 100 98 100 Oxygen Delivery Method Room Air Room Air 01/31/24 22:15 02/01/24 05:34 02/01/24 07:56 Temperature 98.6 F Temperature Source Oral Pulse Rate 71 70 Respiratory Rate 16 Respiratory Effort Normal Non-Labored Respiratory Depth Normal Respiratory Pattern Normal Blood Pressure 128/72 H Blood Pressure Mean 90 Blood Pressure Source Monitor Blood Pressure Position Semi-Fowlers Blood Pressure Location Right Arm Pulse Ox 99 Oxygen Delivery Method Room Air Room Air 02/01/24 10:05 Temperature 98.6 F Temperature Source Oral Pulse Rate 83 Respiratory Rate 20 H Respiratory Effort Respiratory Depth Respiratory Pattern Blood Pressure 112/64 Blood Pressure Mean 80 Blood Pressure Source Monitor Blood Pressure Position Semi-Fowlers Blood Pressure Location Left Arm Pulse Ox 98 Oxygen Delivery Method Room Air Weight Weight: 176 lb 2.389 oz Body Mass Index (BMI) 32.2 Physical Exam Const alert, oriented x3 and no apparent distress Chest inspection of chest normal Resp normal respiratory effort GI soft to palpation, non-tender and non-distended Extremity normal to inspection, no calf tenderness and no pedal edema Neuro moves all extremities Labs Labs Labs: Blood Type A POSITIVE Antibody Screen NEGATIVE Hct 43.3 % (37-47) Hgb 14.1 g/dL (12.0-15.0) Group B Strep DNA Negative (Negative) Rhogam given: No Assessment & Plan (1) Nausea and vomiting during : COMMENT: 8 weeks (2) First trimester : (3) Dehydration: PLAN: Plan Patient admitted for observation. IV fluids & antiemetics ordered. Plan for discharge to home with oral meds and follow up later this week.
--- NOTE | 2024-02-01 14:25 | DCINST_ITS ---
Discharge Instructions Diet Discharge Diet: [place] diet Activity Discharge Activity: Return to Normal Activity May resume sexual activity in: No Restrictions Weight Bearing Status: Weight bearing as tolerated Follow Up Care When: Keep appointment this week as scheduled. Test Results: Test results from this visit will be discussed in further detail at your follow- up appointment, if applicable. Discharge Plan Admission Admit Date/Time: 01/31/24 21:30 Primary Reason for Your Visit: Nausea and vomiting in Attending Provider: Reno Gillespie Primary Care Provider: Ramiro Aguirre Instructions Additional Instructions / Restrictions: Please only take the Vitamin B6 and Unisom until able to get Diclegis. Discharge Orders/Prescriptions Prescriptions: New pyridoxine (vitamin B6) 50 mg Tablet 50 mg PO BID Qty: 60 3RF Sleep Aid (doxylamine) 25 mg tablet 25 mg PO QHS PRN (Reason: nausea and vomiting) Qty: 30 0RF ondansetron 4 mg tablet,disintegrating 4 mg PO Q8H PRN (Reason: nausea and vomiting) Qty: 60 2RF famotidine [Pepcid] 20 mg tablet 20 mg PO BID Qty: 60 4RF Continued vit-iron fum-folic ac 65 mg iron- 1 mg Tablet 1 tab PO DAILY duloxetine 60 mg capsule,delayed release(DR/EC) 60 mg PO DAILY Referrals / Follow Up: Ramiro Aguirre MD [Primary Care Provider] - Disposition Disposition (needs filled in before D/C Order can be placed): Home, Self Care
[2024-02-01 15:09] VITALS: BP 109/62; PULSE 66; RESP 20; TEMP 36.9; O2SAT 99
== END 2024-02-01 15:30 | disposition home or self-care (01) ==
LOC: ED 19:54 → MS3 21:43
PROVIDERS: Admitting Provider Obstetrics & Gynecology; Emergency Provider Emergency Medicine; PCP Family Medicine; Visit Provider Obstetrics & Gynecology
DX: O21.1 Hyperemesis gravidarum with metabolic disturbance (principal); O99.891 Other specified diseases and conditions complicating pregnancy; R19.7 Diarrhea, unspecified; Z3A.08 8 weeks gestation of pregnancy; R10.9 Unspecified abdominal pain; O26.891 Other specified pregnancy related conditions, first trimester
CPT/HCPCS: 80053; 81001; 83690; 85025; 96365; 96366; 96372; 96375; 96376; 99284; A4216; J2405; J3490

== ENCOUNTER 2024-02-02 11:35 | Emergency (ER) | payer OTHER, MEDICAID, SELFPAY ==
[2024-02-02 11:35] VITALS: BP 112/72; PULSE 79; RESP 18; TEMP 36.3; O2SAT 99; BMI 32.3
--- NOTE | 2024-02-02 11:59 | US_ITS ---
STUDY: ABDOMINAL ULTRASOUND - RIGHT UPPER QUADRANT REASON FOR VISIT: Female, 28 years old upper abd pain/ 8weeks TECHNIQUE: Ultrasound evaluation of the right upper quadrant was performed with real-time and static [place]-scale imaging. TECHNICAL QUALITY: Adequate. COMPARISON: None. FINDINGS: Liver: The liver measures 16.7 cm. There is increased echogenicity consistent with fatty infiltration. The bile ducts are within normal limits. There is hepatic color flow. The direction of portal flow is hepatopetal. There is no demonstrated mass lesion. Gallbladder: Normal distended gallbladder. The gallbladder wall measures 1.6 mm. There is a negative sonographic Veliz''s sign. There is no pericholecystic fluid. There are no gallstones. Common Bile Duct (C.B.D.): The common bile duct measures 2.7 mm. Pancreas: Normal size of the head, body and tail of the pancreas. There is normal echogenicity of the pancreas. There is no demonstrated pancreatic mass or cyst. Right Kidney: Normal size of the right kidney. The right kidney measures 10.7 cm x 5.5 cm x 4.5 cm. Normal renal cortex. The right cortex measures 1.6 cm. There is no demonstrated renal mass or cyst. There is no right hydronephrosis. US/Gallbladder IMPRESSION: Fatty infiltration of the liver. Electronically Signed: Luigi Price MD at 13:15 EDT ,
--- NOTE | 2024-02-02 12:01 | EX.ED.DYSGE1 ---
HPI History of Present Illness Chief Complaint: Abd Pain Informant: patient Narrative Narrative: Patient returns secondary to recurrent abdominal pain. Patient is currently 8 weeks and has been in the ER couple times this past week secondary to nausea and vomiting with abdominal pain. She was admitted 2 days ago and discharged yesterday. Patient states that she was doing better, but presents with recurrent abdominal pain this morning. She is currently prescribed doxylamine, Pepcid, Zofran, and vitamin B6. She states she does not feel the medications are working and she was vomiting again this morning as well. This is her third and she denies any significant pain with the first 2 pregnancies. She did have problems with nausea and vomiting during her prior pregnancies. [facility] Medical History Postoperative pain History of depression Myocarditis History of pre-term labor depression Anxiety Depression Migraine History of delivery Home Medications ?Medication ?Instructions ?Recorded ?Last Taken ?Type vitamins-iron fumarate 65 1 tab PO DAILY 01/01/22 01/04/22 08:00 History mg iron-folic acid 1 mg tablet duloxetine 60 mg capsule,delayed 60 mg PO DAILY 01/31/24 Unknown History release doxylamine succinate 25 mg tablet 25 mg PO QHS PRN nausea and 02/01/24 Unknown Rx (Sleep Aid (doxylamine)) vomiting #30 tabs famotidine 20 mg tablet (Pepcid) 20 mg PO BID #60 tabs 02/01/24 Unknown Rx ondansetron 4 mg disintegrating 4 mg PO Q8H PRN nausea and 02/01/24 Unknown Rx tablet vomiting #60 tabs pyridoxine (vitamin B6) 50 mg 50 mg PO BID #60 tabs 02/01/24 Unknown Rx tablet promethazine 25 mg tablet 25 mg PO Q6H PRN nausea and 02/02/24 Unknown Rx vomiting #20 tabs Allergy/AdvReac Type Severity Reaction Status Date / Time No Known Allergies Allergy Verified 01/31/24 18:06 Surgical History Delivery by section [place] teeth removed Social History Smoking Status: Never smoker ROS ROS ED Constitutional Constitutional ED: Denies chills or fever(s) Eyes Eyes: Denies discharge from eye(s) ENT ENT ED: Denies discharge from eye(s), rhinorrhea or sore throat Cardiovascular Cardiovascular: Denies chest pain or palpitations Respiratory/Chest Respiratory/Chest: Denies cough or dyspnea Gastrointestinal Gastrointestinal: Reports abdominal pain, nausea and vomiting; Denies diarrhea Genitourinary Genitourinary ED: Denies dysuria Musculoskeletal Musculoskeletal: Denies back pain or extremity pain Integumentary Denies Abrasions or rash Neurologic Neurologic: Denies headache(s) or weakness Psychiatric Psychiatric: Denies anxiety or depression Allergic/Immunologic Allergic/Immunologic ED: Denies lip swelling or urticaria EXAM Physical Exam Const Vital Signs: 02/02/24 11:35 Temperature 97.4 F L Temperature Source Temporal Pulse Rate 79 Respiratory Rate 18 Blood Pressure 112/72 Blood Pressure Mean 85 Pulse Ox 99 Positive well nourished and well developed General Appearance ED: well developed HEENT Reports moist mucous membranes Eyes EOMs intact bilaterally Chest Wall inspection of chest normal and palpation of chest normal Resp normal respiratory effort and clear to auscultation bilaterally Cardio regular rate and regular rhythm GI GI Narrative: Abdomen soft with mild epigastric tenderness. No guarding or rebound. Extremity normal to inspection Neuro oriented x3 and no sensory deficits noted Motor Exam: strength 5/5 throughout Psych mental status grossly normal Skin no rashes or lesions noted MDM MDM MDM Narrative Medical decision making narrative: Patient's recent ER visits and hospitalization reviewed. IV line initiated. Patient given Phenergan along with a GI cocktail. Labwork obtained to evaluate for leukocytosis, anemia, and electrolyte derangement. Right upper quadrant abdominal ultrasound to be obtained to evaluate for any acute gallbladder abnormalities. History & Record Review Discussion w/independent historian: Patient Additional record(s) reviewed:: Prior inpatient record, Prior ED visit and Prior labs Lab Data Attestation: I reviewed the patient's lab results. Labs: Laboratory Results - last 24 hr 02/02/24 02/02/24 12:15 13:10 WBC 8.3 RBC 5.03 Hgb 12.4 Hct 38.4 MCV 76.3 L MCH 24.7 L MCHC 32.3 RDW Std Deviation 45.7 H RDW Coeff of Macy 16.9 H Plt Count 291 MPV 10.1 Immature Gran % (Auto) 0.500 Neut % (Auto) 80.2 H Lymph % (Auto) 12.7 L [place] % (Auto) 5.7 Eos % (Auto) 0.8 Baso % (Auto) 0.1 Absolute Neuts (auto) 6.7 Absolute Lymphs (auto) 1.05 Nucleated RBC % 0 Sodium 138 Potassium 3.6 Chloride 109 H Carbon Dioxide 21.0 Anion Gap 8 BUN 3 L Creatinine 0.61 Estim Creat Clear Calc 136.01 Est GFR (MDRD) Af Amer 151 Est GFR (MDRD) Non-Af 125 BUN/Creatinine Ratio 4.9 L Glucose 91 Calcium 8.9 Total Bilirubin 0.20 Direct Bilirubin 0.07 AST 17 ALT 28 Alkaline Phosphatase 58 Total Protein 6.5 Albumin 2.6 L Globulin 3.9 Lipase 20 Urine Color Yellow Urine Clarity Clear Urine pH 6.0 Ur Specific [place] 1.010 Urine Protein Negative Urine Glucose (UA) Normal Urine Ketones 150 A* Urine Occult Blood Negative Urine Nitrite Negative Urine Bilirubin Negative Urine Urobilinogen Normal Ur Leukocyte Esterase 25 H Urine RBC 0 SEEN Urine WBC 0-5 SEEN Ur Squamous Epith Cells 0-5 SEEN Urine Bacteria 1+ Urine Mucus 1+ Radiography Diagnostic Testing: Clinical Impression(s) from Imaging Studies Gallbladder Ultrasound 02/02/24 11:59 IMPRESSION: Fatty infiltration of the liver. Electronically Signed: Luigi Price MD at 13:15 EDT , Treatment and Re-Evaluation :: CBC was normal white count 8.3 with 80% neutrophils. Hemoglobin is 12.4. Chemistry studies unremarkable. LFTs and lipase are normal. Urinalysis reveals 150 ketones with 1+ bacteria, 0-5 epithelials, 0-5 white cells. No nitrites noted. Right upper quadrant ultrasound shows fatty infiltration of the liver with no acute findings. On repeat evaluation patient does feel somewhat improved. We can add Phenergan to her regimen. I did speak with Kanwal Chow, on-call for [facility] [employer]. Patient has an appointment to be seen in 2 days and they stated that they can talk to her about a Zofran or Reglan pump to help with nausea. Patient be discharged home with return instructions given. Discharge Plan Triage Chief Complaint: Abd Pain ED Provider: Bibiana Thompson Dx/Rx/DC Orders Clinical Impression: First trimester , Vomiting, Abdominal cramping Instructions: ED Abdominal Pain Unkn Cause Fem, ED Vomiting (Adult) Prescriptions: New promethazine 25 mg tablet 25 mg PO Q6H PRN (Reason: nausea and vomiting) Qty: 20 0RF No Action vit-iron fum-folic ac 65 mg iron- 1 mg Tablet 1 tab PO DAILY duloxetine 60 mg capsule,delayed release(DR/EC) 60 mg PO DAILY pyridoxine (vitamin B6) 50 mg Tablet 50 mg PO BID Qty: 60 3RF Sleep Aid (doxylamine) 25 mg tablet 25 mg PO QHS PRN (Reason: nausea and vomiting) Qty: 30 0RF ondansetron 4 mg tablet,disintegrating 4 mg PO Q8H PRN (Reason: nausea and vomiting) Qty: 60 2RF famotidine [Pepcid] 20 mg tablet 20 mg PO BID Qty: 60 4RF Primary Care Provider: Ramiro Aguirre Referrals: Kanwal Chow CNM [Med Staff - Adv Practice Prof] - Keep Jorge appointment Ramiro Aguirre MD [Primary Care Provider] - Activity Restrictions/Additional Instructions: I spoke with Kanwal Chow, nurse manufacturing development engineer for [facility] [employer] group. She is aware of your visit today. She states that they will see you on Friday and discuss potentially starting you on a Zofran or Reglan pump to help control your nausea. Print Language: Persian Disposition Disposition: Home, Self Care
[2024-02-02] MEDS: Lidocaine 2% Viscous15 ML UDC 15 ML PO (12:11)
[2024-02-02] MEDS: proMETHazine 25 MG/ML Syringe 12.5 MG IM (12:11)
[2024-02-02] MEDS: 0.9% Normal Saline (1000mL) 1,000 ML 150 ML IV (12:11)
[2024-02-02] MEDS: Mag Hydrox/Al Hydrox/Simeth 30 ML UDC PO (12:11)
[2024-02-02 12:36] LABS: Absolute Lymphocyte Count 1.05 X10^3/uL (0.83-4.51); Absolute Neutrophil Count 6.7 X10^3/uL (2.0-7.7); Basophil# 0.01 X10^3/uL; Basophil% 0.1 % (0-1); Eosinophil# 0.07 X10^3/uL; Eosinophils% 0.8 % (0-5); Hematocrit 38.4 % (37-47); Hemoglobin 12.4 g/dL (12.0-15.0); Lymphocyte # 1.05 X10^3/ul (0.83-4.51); Lymphocyte % 12.7 % (19-41); Mean Corp Hgb Conc 32.3 g/dL (32-36); Mean Corpuscular Hgb 24.7 pg (27.0-32.0); Mean Corpuscular Volume 76.3 fL (81-99); Mean Platelet Vol. 10.1 fl (6.2-12.0); Monocyte# 0.47 X10^3/uL; Monocyte% 5.7 % (0-10); NRBC Flagged by Analyzer 0 % (0-5); Neutrophil # 6.66 X10^3/uL (2.7-7.7); Neutrophil % 80.2 % (47-70); Platelet Count 291 K/mm3 (150-450); RBC Distribution Width CV 16.9 % (11.6-14.6); RBC Distribution Width SD 45.7 fl (35.1-43.9); Red Blood Count 5.03 M/mm3 (4.2-5.4); White Blood Count 8.3 K/mm3 (4.4-11.0)
[2024-02-02 12:40] LABS: AST(SGOT) 17 U/L (15-37); Alanine Aminotransfer ALT/SGPT 28 U/L (13-56); Albumin, Serum 2.6 g/dL (3.2-5.0); Alkaline Phosphatase 58 U/L (45-117); Anion Gap 8 (5-15); BUN 3 mg/dL (7-18); BUN/Creat Ratio 4.9 RATIO (10-20); Bilirubin, Direct 0.07 mg/dL (0.00-0.30); Calcium,Total 8.9 mg/dL (8.5-10.1); Chloride 109 mmol/L (98-107); Creatinine, Serum 0.61 mg/dL (0.55-1.02); EST Glomerular Filtration Rate 125 mL/min (>60); Est Glom Filt Rate - Afr Amer 151 mL/min (>60); Estimated Creatinine Clearance 136.01 ml/min; Globulin 3.9 g/dL (2.2-4.2); Glucose 91 mg/dL (74-106); Lipase 20 U/L (13-75); Potassium 3.6 mmol/L (3.5-5.1); Protein, Total 6.5 g/dL (6.4-8.2); Sodium Level 138 mmol/L (136-145)
[2024-02-02 13:13] LABS: Red Blood Cells-Urine 0 SEEN /hpf (0-5)
[2024-02-02 13:25] LABS: Color, Urine Yellow (Yellow); Glucose, Dipstick Normal (Normal); Leukocyte Esterase-Dipstick 25 /ul (Negative); Nitrite-Dipstick Negative (Negative); Occult Blood-Urine Negative /ul (Negative); Protein-Dipstick Negative (Negative); Urine Bilirubin Dipstick Negative (Negative); Urine Clarity Clear (Clear); Urine Urobilinogen Normal (Normal)
[2024-02-02 13:41] LABS: Ketone-Dipstick 150 mg/dl (Negative)
[2024-02-02 13:52] LABS: Squamous Epithelial Cells - UA 0-5 SEEN /hpf (5-10); White Blood Cells 0-5 SEEN /hpf (0-5)
[2024-02-02 13:53] LABS: Bacteria 1+ /hpf (None Seen); Mucous, Urine 1+ /hpf (<or=2+)
[2024-02-02 14:24] VITALS: BP 124/83; PULSE 89; RESP 16; O2SAT 99
== END 2024-02-02 14:26 | disposition home or self-care (01) ==
PROVIDERS: Emergency Provider Emergency Medicine; PCP Family Medicine; Visit Provider Emergency Medicine
DX: O99.891 Other specified diseases and conditions complicating pregnancy (principal); Z3A.08 8 weeks gestation of pregnancy; R10.9 Unspecified abdominal pain; O21.9 Vomiting of pregnancy, unspecified
CPT/HCPCS: 76705; 80048; 80076; 81001; 83690; 85025; 96360; 96361; 96372; 99283; J7030; A4216

== ENCOUNTER 2024-02-06 08:56 | Outpatient (CLI) | payer OTHER, MEDICAID, SELFPAY ==
[2024-02-06 09:06] VITALS: BP 122/68; PULSE 61; RESP 16; TEMP 36.1; O2SAT 99; BMI 31.8
[2024-02-06] MEDS: Lactated Ringers 1,000 ML 999 ML IV (09:20)
[2024-02-06] MEDS: 0.9% NaCl Peripheral Flush Adult/Peds IV (09:20)
[2024-02-06] MEDS: POTASSIUM CHLORIDE IV (10:29)
[2024-02-06] MEDS: WATER IV (10:29)
[2024-02-06] MEDS: DEXTROSE 5% IV (10:29)
[2024-02-06 12:40] VITALS: BP 117/61; PULSE 75; RESP 16; TEMP 36.3; O2SAT 100
== END 2024-02-06 23:59 | disposition home or self-care (01) ==
LOC: MEDOUTP 08:58
PROVIDERS: PCP Family Medicine; Visit Provider Nurse Practitioner Women's Health
DX: O21.0 Mild hyperemesis gravidarum (principal); Z3A.00 Weeks of gestation of pregnancy not specified
CPT/HCPCS: 96365; 96366; 96361; J7120; A4216

== ENCOUNTER 2024-04-06 11:24 | Emergency (ER) | payer OTHER, MEDICAID, SELFPAY ==
[2024-04-06 11:25] VITALS: BP 102/61; PULSE 102; RESP 16; TEMP 36.6; O2SAT 97; BMI 31.1
--- NOTE | 2024-04-06 12:04 | EDS_ITS ---
HPI History of Present Illness Chief Complaint: General Illness [facility] Medical History Postoperative pain History of depression Myocarditis History of pre-term labor depression Anxiety Depression Migraine History of delivery Home Medications ?Medication ?Instructions ?Recorded ?Last Taken ?Type vitamins-iron fumarate 65 1 tab PO DAILY 01/01/22 01/04/22 08:00 History mg iron-folic acid 1 mg tablet duloxetine 60 mg capsule,delayed 60 mg PO DAILY 01/31/24 Unknown History release doxylamine succinate 25 mg tablet 25 mg PO QHS PRN nausea and 02/01/24 Unknown Rx (Sleep Aid (doxylamine)) vomiting #30 tabs famotidine 20 mg tablet (Pepcid) 20 mg PO BID #60 tabs 02/01/24 Unknown Rx ondansetron 4 mg disintegrating 4 mg PO Q8H PRN nausea and 02/01/24 Unknown Rx tablet vomiting #60 tabs pyridoxine (vitamin B6) 50 mg 50 mg PO BID #60 tabs 02/01/24 Unknown Rx tablet promethazine 25 mg tablet 25 mg PO Q6H PRN nausea and 02/02/24 Unknown Rx vomiting #20 tabs Allergy/AdvReac Type Severity Reaction Status Date / Time No Known Allergies Allergy Verified 04/06/24 11:27 Surgical History Delivery by section [place] teeth removed Social History Smoking Status: Never smoker EXAM Physical Exam Const Vital Signs: 04/06/24 11:24 04/06/24 11:25 04/06/24 13:24 Temperature 97.8 F Temperature Source Temporal Pulse Rate 102 H 86 Respiratory Rate 16 16 Respiratory Pattern Normal Blood Pressure 102/61 107/64 Blood Pressure Mean 74 78 Pulse Ox 97 99 Oxygen Delivery Method Room Air Room Air MDM MDM MDM Narrative Medical decision making narrative: HISTORY OF PRESENT ILLNESS: 28-year-old female presents with concern for diffuse weakness, dizziness sore throat cough runny nose. Notes son has croup. Notes she is probably 17 weeks . No she may be dehydrated. Denies chest pain, abdominal pain, vaginal bleeding, decreased movement or passage of any tissue. Denies any focal weakness numbness or loss of sensation. Denies any dysuria or hematuria. REVIEW OF SYSTEMS: Pertinent positives: As per HPI Pertinent negatives: As per HPI PHYSICAL EXAM: Nursing triage notes reviewed, Vital signs reviewed Constitutional: please see [facility] HENT: MMM Eyes: Pupils equal round and reactive to light, Extraocular muscles intact Neck: No stridor, no JVD, full neck ROM Lungs: Clear to auscultation, No wheezing or rales. No increased work of breathing, no conversational dyspnea, no accessory muscle use, no nasal flaring. No respiratory distress noted Heart: Regular rate and rhythm, No murmurs, No rubs and No gallops, 2+ distal pulses (radial, femoral, posterior tibial) in all extremities Abdomen: Soft, gravid uterus, there is no tenderness, rigidity, rebound or guarding, no obvious peritoneal signs, no palpable pulsatile abdominal masses, no auscultated abdominal bruit : No CVAT Extremities: No edema Neuro: No focal neurological deficits, cranial nerves II through XII intact, 5/5 strength in all extremities. Intact sensation to light touch in all extremities, 2+ reflexes bilateral patella tendons. Normal gait. No ataxia. Skin: No rash or lesions noted MEDICAL DECISION MAKING: Chief Complaint: As per HPI External records reviewed: Reviewed prior ED visits, prior imaging Factors affecting care: 17 weeks , second trimester [facility] Narrative: Patient was initially hemodynamically stable, afebrile and nontoxic-appearing. Exam without obvious focal cardiopulmonary, neurologic or abdominal abnormalities. I considered the following differential diagnosis: Dehydration, viral illness, UTI, electrolyte disturbance, arrhythmia I obtained a broad lab and imaging workup to further elucidate etiology of patient complaint. ALL IMAGES (IF OBTAINED) HAVE BEEN PERSONALLY REVIEWED AND INTERPRETED BY MYSELF. FHT 152 BMP without evidence of significant electrolyte abnormalities, no anion gap, no acute kidney injury. LFTs without evidence of hepatobiliary obstruction Urinalysis shows no evidence of urinary inflammation suggestive of UTI or asymptomatic bacteriuria. I have personally reviewed the patient's chest x-ray. Chest x-ray is unremarkable for pulmonary edema, pneumothorax, pneumonia or focal cardiopulmonary abnormality. The synthesis of the patient's history, physical exam, labs images suggest no acute life-limiting etiology. Given her exposure to croup and her son she is likely sent for viral URI causing weakness, sore throat cough and runny nose. There is no evidence of bacterial pneumonia to suggest need for antimicrobial therapy. She is given a liter normal saline and felt better. She is appropriate discharge home. The patient and/or family, caregivers express understanding. The patient and/or family, caregivers agrees with the plan. Shared decision making: I will have a discussion with the patient and or visitors regarding risk/benefits of further testing or admission. They will be made aware of of the risk/benefits inherent in this decision they will be given the opportunity to voice understanding. Total critical care time today provided was at least 0 minutes. This excludes separately billable procedures. Critical care time (if documented) is secondary to the patient having high probability of clinically significant/life threatening deterioration in the patient's condition which required my urgent intervention. Impression: 1. Viral illness 2. Second trimester Dispo: Discharge home This note was generated with [employer] dictation software. It may contain incorrect words, spelling, and punctuation that were not noted in review of the chart prior to signing. Lab Data Labs: Laboratory Results - last 24 hr 04/06/24 04/06/24 11:46 13:24 Sodium 138 Potassium 3.7 Chloride 109 H Carbon Dioxide 23.0 Anion Gap 6 BUN 3 L Creatinine 0.52 L Estim Creat Clear Calc 156.51 Est GFR (MDRD) Af Amer 181 Est GFR (MDRD) Non-Af 149 BUN/Creatinine Ratio 5.7 L Glucose 96 Calcium 9.1 Total Bilirubin 0.20 Direct Bilirubin 0.07 AST 10 L ALT 13 Alkaline Phosphatase 64 Total Protein 6.5 Albumin 2.2 L Globulin 4.3 H Albumin/Globulin Ratio 0.5 L Urine Color Yellow Urine Clarity Clear Urine pH 6.5 Ur Specific [place] 1.015 Urine Protein 15 H Urine Glucose (UA) Normal Urine Ketones 50 H Urine Occult Blood Negative Urine Nitrite Negative Urine Bilirubin Negative Urine Urobilinogen 1 H Ur Leukocyte Esterase Negative Radiography Diagnostic Testing: Clinical Impression(s) from Imaging Studies Chest X-Ray 04/06/24 12:22 IMPRESSION: Normal x-ray examination of the chest. Electronically Signed: Luigi Price MD at 12:44 EDT , Discharge Plan Triage Chief Complaint: General Illness ED Provider: Eliseo Wick Dx/Rx/DC Orders Prescriptions: No Action vit-iron fum-folic ac 65 mg iron- 1 mg Tablet 1 tab PO DAILY duloxetine 60 mg capsule,delayed release(DR/EC) 60 mg PO DAILY pyridoxine (vitamin B6) 50 mg Tablet 50 mg PO BID Qty: 60 3RF Sleep Aid (doxylamine) 25 mg tablet 25 mg PO QHS PRN (Reason: nausea and vomiting) Qty: 30 0RF ondansetron 4 mg tablet,disintegrating 4 mg PO Q8H PRN (Reason: nausea and vomiting) Qty: 60 2RF famotidine [Pepcid] 20 mg tablet 20 mg PO BID Qty: 60 4RF promethazine 25 mg tablet 25 mg PO Q6H PRN (Reason: nausea and vomiting) Qty: 20 0RF Primary Care Provider: Ramiro Aguirre Referrals: Ramiro Aguirre MD [Primary Care Provider] - Print Language: Bangladeshi
--- NOTE | 2024-04-06 12:22 | EKG12_ITS ---
Test Reason : Blood Pressure : / mmHG Vent. Rate : 079 BPM Atrial Rate : 079 BPM P-R Int : 132 ms QRS Dur : 090 ms QT Int : 368 ms P-R-T Axes : 057 049 027 degrees QTc Int : 421 ms Sinus rhythm with marked sinus arrhythmia Otherwise normal ECG Confirmed by KAMILLA MCDUFFIE, DAJUAN ([id number]), map editor MILAGRO KAPOOR ([id number]) on 04/09/2024 6:36:14 AM Referred By: Confirmed By:VEE KOHLI MD
--- NOTE | 2024-04-06 12:22 | RAD_ITS ---
STUDY: X-RAY CHEST REASON FOR EXAM: Female, 28 years old. Cough. Weakness and dizziness. Patient is 17 weeks . The patient was shielded appropriately. TECHNIQUE: Single AP portable view of the chest. COMPARISON: None. FINDINGS: The lungs are clear and expanded. There is no demonstrated pleural abnormality. Normal size heart. Normal mediastinum and donna. Normal visualized pulmonary arteries. Normal visualized aortic arch and descending thoracic aorta. Normal visualized thoracic spine. Normal visualized ribs, clavicles, and shoulders. There is no demonstrated abnormality of the visualized soft tissue structures of the upper abdomen. RAD/Chest 1 View (Portable) IMPRESSION: Normal x-ray examination of the chest. Electronically Signed: Luigi Price MD at 12:44 EDT ,
--- NOTE | 2024-04-06 12:28 | NURSING ---
NO OLD EKG
[2024-04-06] MEDS: 0.9% Normal Saline (1000mL) 1,000 ML 1000 ML IV (12:31)
[2024-04-06] MEDS: Ondansetron 4 MG/2 ML Vial IV (12:32)
[2024-04-06 12:58] LABS: ALB/GLOB Ratio 0.5 RATIO (0.9-2.4); AST(SGOT) 10 U/L (15-37); Alanine Aminotransfer ALT/SGPT 13 U/L (13-56); Albumin, Serum 2.2 g/dL (3.2-5.0); Alkaline Phosphatase 64 U/L (45-117); Anion Gap 6 (5-15); BUN 3 mg/dL (7-18); BUN/Creat Ratio 5.7 RATIO (10-20); Bilirubin, Direct 0.07 mg/dL (0.00-0.30); Calcium,Total 9.1 mg/dL (8.5-10.1); Chloride 109 mmol/L (98-107); Creatinine, Serum 0.52 mg/dL (0.55-1.02); EST Glomerular Filtration Rate 149 mL/min (>60); Est Glom Filt Rate - Afr Amer 181 mL/min (>60); Estimated Creatinine Clearance 156.51 ml/min; Globulin 4.3 g/dL (2.2-4.2); Glucose 96 mg/dL (74-106); Potassium 3.7 mmol/L (3.5-5.1); Protein, Total 6.5 g/dL (6.4-8.2); Sodium Level 138 mmol/L (136-145)
[2024-04-06 13:24] VITALS: BP 107/64; PULSE 86; RESP 16; O2SAT 99
[2024-04-06 13:31] LABS: Color, Urine Yellow (Yellow); Glucose, Dipstick Normal (Normal); Ketone-Dipstick 50 mg/dl (Negative); Leukocyte Esterase-Dipstick Negative /ul (Negative); Nitrite-Dipstick Negative (Negative); Occult Blood-Urine Negative /ul (Negative); Protein-Dipstick 15 mg/dl (Negative); Specific Gravity, Urine 1.015 (1.002-1.030); Urine Bilirubin Dipstick Negative (Negative); Urine Clarity Clear (Clear); Urine Urobilinogen 1 mg/dl (Normal); Urine pH 6.5 (5.0 - 8.0)
[2024-04-06 14:17] VITALS: BP 110/78; PULSE 91; RESP 18; TEMP 36.4; O2SAT 99
== END 2024-04-06 14:18 | disposition home or self-care (01) ==
PROVIDERS: Emergency Provider Emergency Medicine; PCP Family Medicine; Visit Provider Emergency Medicine
DX: O98.512 Other viral diseases complicating pregnancy, second trimester (principal); B34.9 Viral infection, unspecified; Z3A.17 17 weeks gestation of pregnancy
CPT/HCPCS: 71045; 80053; 80076; 81002; 87631; 93005; 96361; 96374; 99284; J7030; J2405

== ENCOUNTER 2024-06-13 01:58 | Emergency (ER) | payer OTHER, MEDICAID, SELFPAY ==
[2024-06-13 01:59] VITALS: BP 133/85; PULSE 85; RESP 18; TEMP 36.6; O2SAT 98; BMI 34.3
--- OUTSIDE RECORDS SUMMARY | 2024-06-13 03:07 | XMS RPT_ITS | CCD ---
Author Organization [facility] Care Team Providers Care Material Cutter Name Role Phone Surjit Aguirre MD Primary Care Provider [phone] SAMI VORA Referring Unavailable SURJIT AGUIRRE Primary Care Unavailable SURJIT AGUIRRE Primary Care Unavailable YOBANI DARBY Referring Unavailable BIBIANA WEATHERS Attending Unavailable SURJIT AGUIRRE Primary Care Unavailable YOBANI DARBY Referring Unavailable SURJIT AGUIRRE Primary Care Unavailable ROSARIO GARCIA Referring Unavailable SAMI VORA Attending Unavailable SURJIT AGUIRRE Primary Care Unavailable ROSARIO GARCIA Referring Unavailable INDIRA IBARRA Referring Unavailable ELDERSURJIT AMATO Primary Care Unavailable KANWAL SALDAÑA Attending Unavailable INDIRA IBARRA Referring Unavailable SURJIT AGUIRRE Primary Care Unavailable TESTINDIRA MAY Referring Unavailable SURJIT AGUIRRE Primary Care Unavailable KANWAL SALDAÑA Attending Unavailable TESTINDIRA MAY Referring Unavailable SURJIT AGUIRRE Primary Care Unavailable SURJIT AGUIRRE Primary Care Unavailable ROSARIO GARCIA Attending Unavailable RONI, SAMI N Referring Unavailable ELDERSURJIT AMATO Primary Care Unavailable ELDERSURJIT AMATO Primary Care Unavailable BIBIANA WEATHERS Referring Unavailable ELDERBROSURJIT MCKEON Primary Care Unavailable DANII WEINBERG Referring Unavailable SURJIT AGUIRRE Primary Care Unavailable SURJIT AGUIRRE Referring Unavailable INDIRA IBARRA Attending Unavailable DANII WEINBERG Referring Unavailable SURJIT AGUIRRE Primary Care Unavailable ELDERSURJIT AMATO Primary Care Unavailable YOBANI DARBY Attending Unavailable SURJIT AGUIRRE Primary Care Unavailable YOBANI DARBY Referring Unavailable SURJIT AGUIRRE Primary Care Unavailable SURJIT AGUIRRE Attending Unavailable GISELLA AYALA Attending Unavailable SURJIT AGUIRRE Primary Care Unavailable DANII WEINBERG Attending Unavailable SURJIT AGUIRRE Primary Care Unavailable SURJIT AGUIRRE Attending Unavailable SURJIT AGURIRE Primary Care Unavailable DANII WEINBERG Referring Unavailable SURJIT AGUIRRE Primary Care Unavailable DANII WEINBERG Referring Unavailable SURJIT AGUIRRE Primary Care Unavailable VIJAY GORDON Attending Unavailable SURJIT AGUIRRE Primary Care Unavailable SURJIT AGUIRRE Primary Care Unavailable AUSTIN MAYBERRY Referring Unavailable SURJIT AGUIRRE Primary Care Unavailable SURJIT AGUIRRE Referring Unavailable SURJIT AGUIRRE Primary Care Unavailable SURJIT AGUIRRE Attending Unavailable SURJIT AGUIRRE Primary Care Unavailable Surjit Aguirre MD Primary Care Provider Sami Vora MD Unavailable Allergies Allergy Classification Reported Allergen(s) Allergy Type Date of Onset Reaction(s) Facility Pollen (1 source) Pollen Substance Allergy 2 Other: See Comments [facility] (20 sources) Pollen; Translations: [POLLEN] Allergy to substance 2 Other: See Comments [facility] Medications Current Medications Medication Drug Class(es) Dates Sig (Normalized) Sig (Original) amoxicillin 875 mg oral tablet (2 sources) Penicillin-class Antibacterial Start: 06-26-2023 End: 07-03-2023 take 1 tablet by mouth twice daily amoxicillin (AMOXIL) 875 mg tablet Indications: Acute otitis media, right Take 1 tablet by mouth two times a day for 7 days. 14 tablet 0 06/26/2023 07/03/2023 Active Start: 08-19-2022 End: 08-26-2022 take 1 tablet by mouth twice daily amoxicillin (AMOXIL) 875 mg tablet Take 1 tablet by mouth twice daily for 7 days. 14 tablet 0 08/19/2022 08/26/2022 Active Comment on above: Take 1 tablet by sb th twice daily for 7 days. Take 1 tablet by sb th two times a day for 7 days. ARIPiprazole 2 mg oral tablet (8 sources) Atypical Antipsychotic Start : 08-22 End: 06-03 take 1 tablet by mouth once daily ARIPiprazole (ABILIFY) 2 mg tablet Take 2 mg by mouth once daily. 0 08/22/2022 06/03/2023 Discontinued Comment on above: Take 2 mg by mouth o nce daily. aspirin 81 mg oral tablet (20 sources) Platelet Aggregation Inhibitor, Nonsteroidal Anti-inflammatory Drug Start : 02-03 End: 06-09 take 1 capsule by mouth once daily aspirin 81 mg cap Take 81 mg by mouth once daily. Starting at 12 weeks. 90 capsule 2 02/04/2024 06/09/2024 Discontinued cariprazine 3 mg oral capsule (20 sources) Atypical Antipsychotic Start : 05-28 End: 06-09 take 1 capsule by mouth once daily VRAYLAR 3 mg capsule Take 3 mg by mouth once daily. 08/04/2023 06/09/2024 Discontinued Comment on above: Take 1 capsule by mo [facility] once daily. doxycycline hyclate 100 mg oral tablet (1 source) Tetracycline-class Drug Start : 09-02 End: 09-12 take 1 tablet by mouth twice daily doxycycline (VIBRA-TABS) 100 mg tablet Indications: Sore throat Take 1 tablet by mouth twice daily for 10 days. 20 tablet 0 09/02/2022 09/12/2022 Active Comment on above: Take 1 tablet by [facility] twice daily for 10 days. DULoxetine 60 mg delayed release oral capsule (20 sources) Serotonin and Norepinephrine Reuptake Inhibitor Start : 08-05 End: 06-09 take 1 capsule by mouth once daily DULoxetine (CYMBALTA) 60 mg capsule Take 60 mg by mouth once daily. 08/05/2022 06/09/2024 Discontinued Comment on above: Take 60 mg by mouth once daily. famotidine 20 mg oral tablet (20 sources) Histamine-2 Receptor Antagonist Start : 01-31 famotidine (PEPCID) 20 mg tablet two times a day. 02/01/2024 Active 5 ml iron sucrose 20 mg/ml injection (9 sources) Parenteral Iron Replacement Start : 12-18 End: 01-15 iron sucrose 200 mg injection (VENOFER) 1 ml medroxyPROGESTERone acetate 150 mg/ml prefilled syringe (20 sources) Progestin Start : 02-19 End: 01-21 medroxyPROGESTERone 150 mg injection (DEPO-PROVERA) Start: 02-19-2022 End: 06-03-2023 medroxyPROGESTERone (DEPO-TN OVERA) 150 mg/mL Inject 1 mL intramuscularly every 12 weeks. 1 Each 4 02/19/2022 06/03/2023 Discontinued Comment on above: Inject 1 mL intramus cularly every 12 weeks. metroNIDAZOLE 500 mg oral tablet (1 source) Nitroimidazole Antimicrobial Start: 12-26-19 End: 01-02-20 take 1 tablet by mouth twice daily metroNIDAZOLE (FLAGYL) 500 mg tablet Take 1 tablet by mouth two times a day for 7 days. 14 tablet 0 12/26/2023 01/02/2024 Active ondansetron 4 mg oral tablet (20 sources) Serotonin-3 Receptor Antagonist Start: 01-30-20 take 1 tablet by mouth every eight hours as needed ondansetron (ZOFRAN) 4 mg tablet Take 1 tablet by mouth every 8 hours as needed for nausea/vomiting. 30 tablet 1 01/30/2024 Active Start: 06-29-2021 take 1 tablet by sb th every eight hours as needed ondansetron orally disintegrating (ZOFRAN ODT) 4 mg disintegrating tablet Take 1 tablet by mouth every 8 hours as needed for nausea/vomiting. 30 tablet 0 06/29/2021 Active Comment on above: Take 1 tablet by sb th every 8 hours as needed for nausea/vomiting. multivitamin (CLASSIC ) 28 mg iron- 800 mcg tab(s) (20 sources) End: 06-03-20 take 1 tablet by mouth once daily multivitamin (CLASSIC ) 28 mg iron- 800 mcg tab(s) Take 1 tablet by mouth once daily. 0 06/03/2023 Discontinued take 1 tablet by mouth once aarti y multivitamin (CLASSIC ) 28 mg iron- 800 mcg tab(s) Take 1 tablet by mouth once daily. 0 Active Comment on above: Take 1 tablet by sb th once daily. multivitamin (CALIXTO ) 65 mg iron- 1 mg tab (20 sources) Start: 01-01-2022 multivitamin (CALIXTO ) 65 mg iron- 1 mg tab once daily. 01/01/2022 Active Start: 01-01-2022 multi vitamin (CALIXTO ) 65 mg iron- 1 mg tab once daily. 0 01/01/2022 Active promethazine hydrochloride 25 mg oral tablet (20 sources) Phenothiazine take 25 mg by mouth every six hours promethazine HCl (PHENERGAN ORAL) Take 25 mg by mouth every 6 hours. Active PUMP SET MISC (20 sources) End: 06-09-2024 PUMP SET MISC Zofran 06/09/2024 Discontinued PUMP SET MISC Zo chantell Active PUMP SET MISC Zo chantell 0 Active traZODone hydrochloride 50 mg oral tablet (20 sources) Serotonin Reuptake Inhibitor Start: 06-01-2023 traZODone (DESYREL) 50 mg tablet 06/01/2023 Active Completed/Discontinued Medications Medication Drug Class(es) Dates Sig (Normalized) Sig (Original) 1.1 ml HYDROXYprogesterone caproate (mcc) 250 mg/ml auto-injector (18 sources) End: 2 HYDROXYprogest,PF, ,preg presv, (JACOB, PF,) 275 mg/1.1 mL auto-injector Inject 275 mg subcutaneously one time a week. 0 02/19/2022 Discontinued (Course of therapy completed) Comment on above: Inject 275 mg subcut aneously one time a week. doxylamine succinate 10 mg / pyridoxine hydrochloride 10 mg delayed release oral tablet (8 sources) Start: 4 End: 4 doxylamine-pyridox ine, vit B6, 10-10 mg TbEC Take 2 tabs at night. If symptoms persist after 2 days add one tab in the morning. If symptoms still persist after 4 days add a tab mid-day 100 tablet 0 01/30/2024 03/01/2024 Discontinued 0.5 ml dulaglutide 1.5 mg/ml auto-injector (2 sources) GLP-1 Receptor Agonist Start: 3 End: 4 inject 0.75 mg by subcutaneous injection every week TRULICITY 0.75 mg/0.5 mL pen injector Inject 0.75 mg subcutaneously one time a week. 0 07/29/2023 10/20/2023 Discontinued Comment on above: Inject 0.75 mg subcu taneously one time a week. ferrous sulfate 325 mg oral tablet (20 sources) Start: 3 End: 4 take 1 tablet by mouth once daily FEROSUL 325 mg (65 mg iron) tablet Take 1 tablet by mouth once daily. 0 07/24/2023 10/20/2023 Discontinued End: 06-03-2023 ferrous sulfate (IRON ORAL) Take by mouth. 0 06/03/2023 Discontinued ferrous sulfate (IRON ORAL) Take by mouth. 0 Active Comment on above: Take by mouth. Take 1 tablet by sb th once daily. fluconazole 150 mg oral tablet (2 sources) Azole Antifungal Start: 3 End: fluconazole (DIFLUCAN) 150 mg tablet Indications: Feared condition not demonstrated Take 1 tablet by mouth one time only for 1 dose. Repeat in 3 days as needed. 2 tablet 0 06/26/2023 06/26/2023 Comment on above: Take 1 tablet by sb th one time only for 1 dose. Take 1 tablet by sb th one time only for 1 dose. Repeat in 3 days as needed. FLUoxetine 20 mg oral capsule (20 sources) Serotonin Reuptake Inhibitor Start: 2 take 1 capsule by mouth once daily FLUoxetine (PROZAC) 20 mg capsule Take 1 capsule by mouth once daily. Take along with 40 mg capsule 30 capsule 5 03/01/2022 Active Start: 11-23-2021 End: 06-03-2023 take 1 capsule by mouth once daily FLUoxetine HCl (PROZAC) 40 mg capsule Take 1 capsule by mouth once daily. 90 capsule 1 11/23/2021 06/03/2023 Discontinued Start: 07-26-2021 take 1 capsule by mo [facility] once daily FLUoxetine (PROZAC) 20 mg capsule Take 1 capsule by mouth once daily. 90 capsule 3 07/26/2021 Active Comment on above: Take 1 capsule by mo ut once daily. Take 1 capsule by mo ut once daily. Take along with 40 mg capsule hydrOXYzine pamoate 50 mg oral capsule (20 sources) Antihistamine Start: 09-02-19 23 End: 03-01-20 24 take 2 capsules by mouth twice daily hydrOXYzine pamoate (VISTARIL) 50 mg capsule Take 2 capsules by mouth twice daily. 09/02/2022 03/01/2024 Discontinued Comment on above: Take 2 capsules by [facility] twice daily. meloxicam 15 mg oral tablet (13 sources) Nonsteroidal Anti-inflammatory Drug Start: 03-01-20 End: 03-09-20 take 1 tablet by mouth once daily at mealtime meloxicam (MOBIC) 15 mg tablet Indications: TMJ dysfunction Take 1 tablet by mouth once daily. With food. 30 tablet 0 03/01/2024 03/09/2024 Discontinued Start: 10-20-2023 End: 12-25-2023 take 1 tablet by mouth once daily at mealtime meloxicam (MOBIC) 15 mg tablet Indications: Trochanteric bursitis of right hip Take 1 tablet by mouth once daily. With food. 30 tablet 1 10/20/2023 12/25/2023 Discontinued Start: 10-11-2022 End: 08-04-2023 take 1 tablet by mouth once daily at mealtime meloxicam (MOBIC) 15 mg tablet Indications: Chronic left-sided low back pain with left-sided sciatica Take 1 tablet by mouth once daily. With food. 30 tablet 1 10/11/2022 08/04/2023 Discontinued Comment on above: Take 1 tablet by sb th once daily. With food. topiramate 50 mg oral tablet (2 sources) Start: 10-09-2023 End: 12-25-2023 take 1 tablet by mouth once daily topiramate (TOPAMAX) 50 mg tablet Take 1 tablet by mouth once daily. 0 10/09/2023 12/25/2023 Discontinued Comment on above: Take 1 tablet by sb th once daily. vitamin b6 50 mg oral tablet (2 sources) Start: 02-01-2024 End: 03-01-2024 take 1 tablet by mouth every twelve hours pyridoxine, vitamin B6, (VITAMIN B6) 50 mg tablet Take 1 tablet by mouth every 12 hours. 0 02/01/2024 03/01/2024 Discontinued Problems Active Problems Problem Classification Problem Date Documented Date Episodic/Chronic Administrative/socia l admission (1 source) Worried well; Translations: [Person with feared health complaint in whom no diagnosis is made] 06-26-2023 Episodic Anxiety disorders (1 source) Mixed anxiety and depressive disorder; Translations: [Other specified anxiety disorders] Chronic Cardiac dysrhythmias (17 sources) Palpitations; Translations: [Palpitations] Onset: 05-21-2024 05-21-2024 Episodic Conditions associated with dizziness or vertigo (9 sources) Dizziness; Translations: [Dizziness and giddiness] Onset: 05-21-2024 05-21-2024 Episodic Disorders of teeth and jaw (1 source) Temporomandibular joint disorder; Translations: [Unspecified temporomandibular joint disorder, unspecified side] 03-01-2024 Episodic Genitourinary symptoms and ill-defined conditions (1 source) Finding of sensation of bladder; Translations: [Other symptoms and signs involving the genitourinary system] 06-03-2023 Episodic Immunizations and screening for infectious disease (2 sources) Vaccination needed; Translations: [Encounter for immunization] Episodic Menstrual disorders (1 source) Break-through bleeding; Translations: [Excessive and frequent menstruation with irregular cycle] Chronic Other circulatory disease (1 source) Feeling of lump in throat; Translations: [Other specified symptoms and signs involving the circulatory and respiratory systems] Episodic Other complications of ; puerperium affecting management of mother (1 source) delivery - delivered; Translations: [Encounter for delivery without indication] Episodic Other complications of (20 sources) Maternal obesity complicating , childbirth and the puerperium, antepartum; Translations: [Obesity complicating , first trimester] Onset: 02-04-2024 02-04-2024 Chronic Other complications of (1 source) Obesity complicating , first trimester; Translations: [Obesity affecting in first trimester, unspecified obesity type] Onset: 02-17-2024 Chronic Other complications of (1 source) ultrasound increased nuchal translucency; Translations: [Abnormal ultrasonic finding on screening of mother] Episodic Other complications of (1 source) Supervision of with other poor reproductive or obstetric history, unspecified trimester; Translations: [ with other poor obstetric history] 05-14-2024 Episodic Other complications of (1 source) Supervision of high risk , unspecified, second trimester; Translations: [High-risk in second trimester] Onset: 05-26-2024 Episodic Other connective tissue disease (1 source) Trochanteric bursitis of right hip; Translations: [Trochanteric bursitis, right hip] 10-20-2023 Episodic Other female genital disorders (1 source) Vaginal irritation; Translations: [Other specified noninflammatory disorders of vagina] 12-25-2023 Episodic Other female genital disorders (1 source) History of premature labor; Translations: [Personal history of pre-term labor] 05-17-2024 Episodic Other female genital disorders (2 sources) Personal history of pre-term labor; Translations: [History of labor] Onset: 04-14-2024 Episodic Other injuries and conditions due to external causes (1 source) Injury of right leg; Translations: [Unspecified injury of right lower leg, initial encounter] 04-17-2023 Episodic Other injuries and conditions due to external causes (2 sources) Injury of right lower leg; Translations: [Unspecified injury of right lower leg, initial encounter] 04-30-2023 Episodic Other nutritional; endocrine; and metabolic disorders (1 source) Obesity; Translations: [Obesity, unspecified] 06-03-2023 Chronic Other nutritional; endocrine; and metabolic disorders (1 source) Obesity, unspecified; Translations: [Obesity, unspecified classification, unspecified obesity type, unspecified whether serious comorbidity present] Onset: 07-21-2023 Chronic Other and delivery including normal (20 sources) Patient encounter status; Translations: [Encounter for care and examination of lactating mother] Onset: 06-06-2020 Resolved: 08-22-2020 Episodic Other screening for suspected conditions (not mental disorders or infectious disease) (5 sources) Cancer cervix screening status; Translations: [Encounter for screening for malignant neoplasm of cervix] Onset: 02-04-2024 02-04-2024 Episodic Other upper respiratory disease (1 source) Pain in throat; Translations: [Pain in throat] Episodic Other upper respiratory infections (4 sources) Pharyngitis; Translations: [Acute pharyngitis, unspecified] Episodic Otitis media and related conditions (2 sources) Acute right otitis media; Translations: [Otitis media, unspecified, right ear] Episodic Residual codes; unclassified (1 source) Gestation period, 28 weeks; Translations: [28 weeks gestation of ] Episodic Residual codes; unclassified (1 source) Gestation period, 31 weeks; Translations: [31 weeks gestation of ] Episodic Residual codes; unclassified (3 sources) Gestation period, 33 weeks; Translations: [33 weeks gestation of ] Episodic Residual codes; unclassified (1 source) Gestation period, 34 weeks; Translations: [34 weeks gestation of ] Episodic Residual codes; unclassified (1 source) Gestation period, 35 weeks; Translations: [35 weeks gestation of ] Episodic Residual codes; unclassified (2 sources) Gestation period, 8 weeks; Translations: [8 weeks gestation of ] 02-04-2024 Episodic Residual codes; unclassified (2 sources) Gestation period, 13 weeks; Translations: [13 weeks gestation of ] 03-09-2024 Episodic Residual codes; unclassified (1 source) Gestation period, 18 weeks; Translations: [18 weeks gestation of ] 04-14-2024 Episodic Residual codes; unclassified (2 sources) Gestation period, 22 weeks; Translations: [22 weeks gestation of ] 05-13-2024 Episodic Residual codes; unclassified (2 sources) Gestation period, 23 weeks; Translations: [23 weeks gestation of ] 05-21-2024 Episodic Residual codes; unclassified (1 source) Gestation period, 24 weeks; Translations: [24 weeks gestation of ] 05-27-2024 Episodic Residual codes; unclassified (1 source) 22 weeks gestation of ; Translations: [22 weeks gestation of ] Onset: 05-26-2024 Episodic Residual codes; unclassified (1 source) 23 weeks gestation of ; Translations: [23 weeks gestation of ] Onset: 05-26-2024 Episodic Spondylosis; intervertebral disc disorders; other back problems (1 source) Acute low back pain; Translations: [Acute bilateral low back pain without sciatica] Episodic Substance-related disorders (20 sources) Psychoactive substance abuse; Translations: [Cannabis abuse, uncomplicated] Onset: 02-29-2020 10-30-2021 Chronic Unclassified (18 sources) Increased nuchal thickness; Translations: [Thickening of nuchal fold] Onset: 07-17-2021 08-14-2021 Unclassified (20 sources) [facility] - [facility] Onset: 02-04-2024 02-04-2024 Unclassified (20 sources) Education - [place] Onset: 02-04-2024 02-04-2024 Past or Other Problems Problem Classification Problem Date Documented Da te Episodic/Chronic Diabetes mellitus without complication (20 sources) Increased glucose level; Translations: [Other abnormal glucose] Onset: 07-04-2020 Resolved: 08-22-2020 08-22-2020 Episodic Fracture of lower limb (1 source) Nondisplaced fracture of medial malleolus of right tibia, sequela; Translations: [Closed nondisplaced fracture of medial malleolus of right tibia, sequela] Onset: 09-08-2023 Episodic Mood disorders (20 sources) Depressive disorder; Translations: [Depression] Onset: 02-24-2012 Resolved: 02-04-2024 11-30-2020 Chronic Other aftercare (1 source) Other detention (current) drug therapy; Translations: [Encounter for long-term (current) use of high-risk medication] Onset: 07-21-2023 Episodic Other circulatory disease (20 sources) History of myocarditis; Translations: [Personal history of other diseases of the circulatory system] Onset: 02-21-2020 09-04-2021 Episodic Other complications of (20 sources) Anemia in mother complicating , childbirth AND/OR puerperium; Translations: [Anemia complicating , third trimester] Onset: 07-04-2020 Resolved: 08-22-2020 Chronic Other complications of (20 sources) Depressive disorder; Translations: [Other mental disorders complicating , second trimester] Onset: 02-21-2020 08-21-2021 Episodic Other complications of (20 sources) Finding of pattern of ; Translations: [Supervision of other high risk pregnancies, unspecified trimester] Onset: 06-12-2021 06-12-2021 Episodic Other complications of (20 sources) H/O: premature delivery; Translations: [Supervision of other high risk pregnancies, unspecified trimester] Onset: 06-12-2021 10-30-2021 Episodic Other complications of (20 sources) Increased nuchal thickness; Translations: [Maternal care for (suspected) chromosomal abnormality in fetus, not applicable or unspecified] Onset: 07-17-2021 08-14-2021 Episodic Other complications of (20 sources) High risk ; Translations: [Supervision of other high risk pregnancies, second trimester] Onset: 10-30-2021 10-30-2021 Episodic Other complications of (13 sources) Nausea and vomiting; Translations: [Vomiting of , unspecified] Onset: 02-21-2020 Resolved: 08-22-2020 08-22-2020 Episodic Other complications of (20 sources) Urinary tract infection in ; Translations: [Unspecified infection of urinary tract in , unspecified trimester] Onset: 02-25-2020 Resolved: 08-22-2020 08-22-2020 Episodic Other complications of (20 sources) Hyperemesis gravidarum; Translations: [Mild hyperemesis gravidarum] Onset: 02-04-2024 02-04-2024 Episodic Other complications of (20 sources) Anxiety in ; Translations: [Other mental disorders complicating , unspecified trimester] Onset: 02-04-2024 02-04-2024 Episodic Other complications of (20 sources) Depressive disorder in mother complicating ; Translations: [Other mental disorders complicating , unspecified trimester] Onset: 02-21-2020 02-04-2024 Episodic Other complications of (20 sources) Vomiting of , unspecified; Translations: [Unspecified vomiting of , unspecified as to episode of care or not applicable] Onset: 02-21-2020 Resolved: 08-22-2020 08-22-2020 Episodic Other complications of (1 source) Supervision of high risk , unspecified, first trimester; Translations: [Encounter for supervision of high risk in first trimester, antepartum] Onset: 02-04-2024 Episodic Other complications of (1 source) Mild hyperemesis gravidarum; Translations: [Hyperemesis affecting , antepartum] Onset: 02-04-2024 Episodic Other connective tissue disease (20 sources) Pain in limb; Translations: [Pain in unspecified limb] Onset: 01-22-2010 Resolved: 02-29-2020 02-29-2020 Episodic Other injuries and conditions due to external causes (20 sources) Injury of right ankle; Translations: [Unspecified injury of right ankle, subsequent encounter] Onset: 09-10-2023 Resolved: 02-04-2024 09-24-2023 Episodic Other injuries and conditions due to external causes (1 source) Unspecified injury of right ankle, subsequent encounter; Translations: [Injury of right ankle, subsequent encounter] Onset: 09-10-2023 Episodic Other injuries and conditions due to external causes (1 source) Unspecified injury of right lower leg, initial encounter; Translations: [Injury of lower leg, right, initial encounter] Onset: 08-04-2023 Episodic Other non-traumatic joint disorders (20 sources) Pain in left shoulder; Translations: [Pain in joint, shoulder region] Onset: 09-17-2017 Resolved: 02-29-2020 02-29-2020 Episodic Other nutritional; endocrine; and metabolic disorders (1 source) Abnormal weight gain; Translations: [Abnormal weight gain] Onset: 07-21-2023 Episodic Polyhydramnios and other problems of amniotic cavity (20 sources) Abnormal amniotic fluid; Translations: [Polyhydramnios, unspecified trimester, not applicable or unspecified] Onset: 12-17-2021 12-17-2021 Episodic Residual codes; unclassified (20 sources) Family history of Spina bifida; Translations: [Family history of other congenital malformations, deformations and chromosomal abnormalities] Onset: 06-12-2021 06-12-2021 Episodic Residual codes; unclassified (1 source) 13 weeks gestation of ; Translations: [13 weeks gestation of ] Onset: 03-09-2024 Episodic Residual codes; unclassified (1 source) 8 weeks gestation of ; Translations: [8 weeks gestation of ] Onset: 03-09-2024 Episodic Sprains and strains (20 sources) Sprain of ankle; Translations: [Sprain of unspecified ligament of right ankle, initial encounter] Onset: 09-10-2023 Resolved: 02-04-2024 09-24-2023 Episodic Results Test Name Value Interpretation Reference Range Facil lilibeth Coughlin 06-07-2024 Echocardiography Echocardiography Report: Transthoracic Echo [facility] Date of service: 06/07/2024 9:09:29 AM Ordering physician: SAMI VORA Indication: Palpitations Technologist: Prasanth Belle [facility] Interpreting physician: Kadi Manjarrez MD PATIENT: Name: MS. KIMBERLY JEONG : 1995 Age: 28 years Gender: F Primary rhythm: sinus. Height: 157.48 cm BSA: 1.88 m Weight: 80.74 kg BMI: 32.6 kg/m Heart rate 63 bpm Blood pressure 104/63 mmHg Color Doppler was utilized to interrogate the cardiac valves assessed and spectral Doppler was utilized to determine the flow velocities and pressure gradients reported in this exam. Myocardial strain analysis was performed in this exam to aid in the assessment of cardiac function. MEASUREMENTS: Value Indexed Normal Max aortic dimension 2.4 cm Ao < 3.8 Left atrium diameter 4.0 cm (2D) LAd < 4 LV ID (diastole) 5.0 cm (2D) 2.65 cm/m LV ID (systole) 3.4 cm (2D) 1.82 cm/m IVS, leaflet tips 0.9 cm (2D) Posterior wall thickness 1.0 cm (2D) Left ventricular mass 167 g (2D) 89 g/m Global peak long strain -21.9 % LV stroke volume 64 ml (2D biplane) LV end diastolic volume 110 ml (2D biplane) 58.8 ml/m 29<=EDVi<62 LV end systolic volume 47 ml (2D biplane) 25.0 ml/m Ejection Fraction 58 % (2D biplane) EF > 54 FINDINGS: LEFT VENTRICLE The left ventricle is normal in size. Left ventricular systolic function is normal. Global LV myocardial strain is normal. Normal left ventricular diastolic function. Mitral annular lateral E/e': 5.6. Mitral annular septal E/e': 10.6. Wall Motion: All scored segments are normal. RIGHT VENTRICLE The right ventricle is normal in size. Right ventricular systolic function is normal. Estimated right ventricular systolic pressure is 22 mmHg consistent with normal pulmonary artery pressures. Estimated right atrial pressure is 3 mmHg based on IVC assessment. LEFT ATRIUM The left atrial cavity is normal in size. RIGHT ATRIUM The right atrial cavity is normal in size. Inferior Vena Cava: The inferior vena cava appears normal measuring 1.4 cm. The vessel decreases greater than 50 percent with inspiration. MITRAL VALVE There is trace mitral valve regurgitation. There is mild thickening. The pressure half time is 48 msec. The peak mitral E/A ratio is 1.43. The average mitral E/e' ratio is 8.1. The mitral flow deceleration time is 166 msec. TRICUSPID VALVE The tricuspid valve leaflets are structurally normal. There is trace tricuspid valve regurgitation. AORTIC VALVE The aortic valve cusps are structurally normal. There is no aortic valve regurgitation. Tricuspid aortic valve. The peak gradient is 10 mmHg (peak velocity = 158.0 cm/s). PULMONIC VALVE The pulmonic valve cusps are structurally normal. There is trace pulmonic valve regurgitation. The peak gradient is 6 mmHg. AORTA The visualized aorta is normal in size. Measurements - Sinus: 2.3 cm. Mid ascending aorta 2.4 cm. PULMONARY ARTERIES The pulmonary arteries are unseen or not interrogated. PERICARDIUM There is no pericardial effusion. CONCLUSIONS: - Exam indication: Palpitations - The left ventricle is normal in size. Left ventricular systolic function is normal. EF = 58 5% (2D biplane) Normal left ventricular diastolic function. - The right ventricle is normal in size. Right ventricular systolic function is normal. - Estimated right ventricular systolic pressure is 22 mmHg consistent with normal pulmonary artery pressures. Estimated right atrial pressure is 3 mmHg based on IVC assessment. - The patient has not had a prior CC echocardiographic exam for comparison. * * * Final * * * [facility] [employer] Medical Image : [id number] Normal [facility] No Panel Informationon 06-07 CONCLUSIONS: - Exam indication: Palpitations - The left ventricle is normal in size. Left ventricular systolic function is normal. EF = 58 5% (2D biplane) Normal left ventricular diastolic function. - The right ventricle is normal in size. Right ventricular systolic function is normal. - Estimated right ventricular systolic pressure is 22 mmHg consistent with normal pulmonary artery pressures. Estimated right atrial pressure is 3 mmHg based on IVC assessment. - The patient has not had a prior CC echocardiographic exam for comparison. * * * Final * * * [facility] Echocardiography Report: Transthoracic Echo [facility] Date of service: 06/07/2024 9:09:29 AM Ordering physician: SAMI VORA Indication: Palpitations Technologist: Prasanth Belle [facility] Interpreting physician: Kadi Manjarrez MD PATIENT: Name: MS. KIMBERLY JEONG : 1995 Age: 28 years Gender: F Primary rhythm: sinus. Height: 157.48 cm BSA: 1.88 m Weight: 80.74 kg BMI: 32.6 kg/m Heart rate 63 bpm Blood pressure 104/63 mmHg Color Doppler was utilized to interrogate the cardiac valves assessed and spectral Doppler was utilized to determine the flow velocities and pressure gradients reported in this exam. Myocardial strain analysis was performed in this exam to aid in the assessment of cardiac function. MEASUREMENTS: Value Indexed Normal Max aortic dimension 2.4 cm Ao < 3.8 Left atrium diameter 4.0 cm (2D) LAd < 4 LV ID (diastole) 5.0 cm (2D) 2.65 cm/m LV ID (systole) 3.4 cm (2D) 1.82 cm/m IVS, leaflet tips 0.9 cm (2D) Posterior wall thickness 1.0 cm (2D) Left ventricular mass 167 g (2D) 89 g/m Global peak long strain -21.9 % LV stroke volume 64 ml (2D biplane) LV end diastolic volume 110 ml (2D biplane) 58.8 ml/m 29<=EDVi<62 LV end systolic volume 47 ml (2D biplane) 25.0 ml/m Ejection Fraction 58 % (2D biplane) EF > 54 FINDINGS: LEFT VENTRICLE The left ventricle is normal in size. Left ventricular systolic function is normal. Global LV myocardial strain is normal. Normal left ventricular diastolic function. Mitral annular lateral E/e': 5.6. Mitral annular septal E/e': 10.6. Wall Motion: All scored segments are normal. RIGHT VENTRICLE The right ventricle is normal in size. Right ventricular systolic function is normal. Estimated right ventricular systolic pressure is 22 mmHg consistent with normal pulmonary artery pressures. Estimated right atrial pressure is 3 mmHg based on IVC assessment. LEFT ATRIUM The left atrial cavity is normal in size. RIGHT ATRIUM The right atrial cavity is normal in size. Inferior Vena Cava: The inferior vena cava appears normal measuring 1.4 cm. The vessel decreases greater than 50 percent with inspiration. MITRAL VALVE There is trace mitral valve regurgitation. There is mild thickening. The pressure half time is 48 msec. The peak mitral E/A ratio is 1.43. The average mitral E/e' ratio is 8.1. The mitral flow deceleration time is 166 msec. TRICUSPID VALVE The tricuspid valve leaflets are structurally normal. There is trace tricuspid valve regurgitation. AORTIC VALVE The aortic valve cusps are structurally normal. There is no aortic valve regurgitation. Tricuspid aortic valve. The peak gradient is 10 mmHg (peak velocity = 158.0 cm/s). PULMONIC VALVE The pulmonic valve cusps are structurally normal. There is trace pulmonic valve regurgitation. The peak gradient is 6 mmHg. AORTA The visualized aorta is normal in size. Measurements - Sinus: 2.3 cm. Mid ascending aorta 2.4 cm. PULMONARY ARTERIES The pulmonary arteries are unseen or not interrogated. PERICARDIUM There is no pericardial effusion. [facility] Examination level ultrasound on 05-27-2024 Indication Cervical length, History of delivery. Maternal obesity, BMI >30 Impression - The patient presents for TVS for cervical length measurement to assess the patient's risk for . - Single, live, intrauterine . - The cervical length measures 39 mm with no evidence of funneling or other dynamic changes. Recommendations Additional follow-up as clinically indicated. History General History Rhesus: Rh positive Height 160 cm Height (ft) 5 ft Height (in) 3 in Maternal Assessment Height 160 cm Height (ft) 5 ft Height (in) 3 in Physical Exam Initial weight (lb) 178 lb Initial BMI 31.53 kg/m Growth Overview Exam date GA BPD (mm) HC (mm) AC (mm) FL (mm) HL (mm) EFW (g) 05/13/2024 22w 4d 57.8 85% 220.2 85% 191.3 81% 41.9 92% 39.6 88% 631 93% Method Transabdominal and transvaginal ultrasound examination Hernández . Number of fetuses: 1 Dating LMP on: 12/07/2023 GA by LMP 24 w + 4 d RADHA by LMP: 09/12/2024 GA by prior assessment 24 w + 4 d RADHA by prior assessment: 09/12/2024 Assigned: based on stated RADHA, selected on 03/09/2024 Assigned GA 24 w + 4 d Assigned RADHA: 09/12/2024 General Evaluation Cardiac activity present. FHR 155 bpm. movements: present. Presentation: cephalic Placenta: Placental site: anterior, fundal Umbilical cord: Cord vessels: 3 vessel cord Amniotic fluid: Amount of AF: normal amount. MVP 5.1 cm. EDSON 16.3 cm. Q1 3.7 cm, Q2 3.6 cm, Q3 5.1 cm, Q4 3.8 cm Maternal Structures Uterus / Cervix Cervix details: normal Approach: Transvaginal Cervical length 39.0 mm Funneling: Funneling absent Performed By: Meghana Mcmahon RDMS Read By: Vijay Gordon M.D. MATERNAL MEDICINE [facility] Radiology Study observation (narrative) [facility] Basic metabolic 2000 panelon 05-26-2024 Anion gap [Moles/Vol] 13 mmol/L 8 - 15 mmol/L [facility] Calcium [Mass/Vol] 8.9 mg/dL 8.5 - 10.2 mg/dL [facility] Chloride [Moles/Vol] 103 mmol/L 98 - 107 mmol/L [facility] CO2 [Moles/Vol] 20 mmol/L Low 22 - 30 mmol/L [facility] Creatinine [Mass/Vol] 0.54 mg/dL Low 0.58 - 0.96 mg/dL [facility] GFR/1.73 sq M.predicted among non-blacks MDRD (S/P/Bld) [Vol rate/Area] 130 mL/min/{1.73_m2} - PINF [facility] Comment on above: Estimated Glomerular Filtration Rate (eGFR) is calculated using the 2020 CKD-EPI creatinine equation. This equation utilizes serum creatinine, sex, and age as parameters. The creatinine assay has traceable calibration to isotope dilution-mass spectrometry. Refer to KDIGO guidelines for clinical interpretation. In patients with unstable renal function, e.g. those with acute kidney injury, the eGFR may not accurately reflect actual GFR. Glucose [Mass/Vol] 75 mg/dL 74 - 99 mg/dL [facility] Comment on above: The [place] Diabete s Association (ADA) provides guidance for cutoff values for fasting glucose and random glucose. The ADA defines fasting as no caloric intake for at least 8 hours. Fasting plasma glucose results between 100 to 125 mg/dL indicate increased risk for diabetes (prediabetes). Fasting plasma glucose results greater than or equal to 126 mg/dL meet the criteria for diagnosis of diabetes. In the absence of unequivocal hyperglycemia, results should be confirmed by repeat testing. In a patient with classic symptoms of hyperglycemia or hyperglycemic crisis, random plasma glucose results greater than or equal to 200 mg/dL meet the criteria for diagnosis of diabetes. Reference: Standards of Medical Care in Diabetes 2016, [place] [employer]. Diabetes Care. 2016.39(Suppl 1). Interpretation and review of laboratory results Abnormal [facility] Potassium [Moles/Vol] 4.0 mmol/L 3.7 - 5.1 mmol /L [facility] Sodium [Moles/Vol] 136 mmol/L 136 - 144 mmol/L [facility] Urea nitrogen [Mass/Vol] 5 mg/dL Low 7 - 21 mg/dL [facility] Anion gap [Moles/Vol] 13 mmol/L Normal 8-15 [facility] Comment on above: Order Comment: Speci men Type: BLOOD SPECIMENOrdering Facility: [facility] Address: [address] [place] [address] Performed By: #### 2 4321-2, 3015-3 ####[facility] LABCLIA [id number] [place] [address] [place] Calcium [Mass/Vol] 8.9 mg/dL Normal 8.5-10.2 [facility] Comment on above: Order Comment: Speci men Type: BLOOD SPECIMENOrdering Facility: [facility] Address: [address] [place] [address] Performed By: #### 2 4321-2, 3015-3 ####[facility] LABCLIA [id number] [place] [address] [place] Chloride [Moles/Vol] 103 mmol/L Normal 98-107 [facility] Comment on above: Order Comment: Speci men Type: BLOOD SPECIMENOrdering Facility: [facility] Address: [address] [place] [address] Performed By: #### 2 432-2, 3015-3 ####[facility] LABCLIA [id number] [facility] [place] [address] [place] CO2 [Moles/Vol] 20 mmol/L Low 22-30 [facility] Comment on above: Order Comment: Speci men Type: BLOOD SPECIMENOrdering Facility: [facility] Address: [address] [place] [address] Performed By: #### 2 4321-2, 6-3 ####[facility] LABCLIA [id number] [place] [address] [place] Creatinine [Mass/Vol] 0.54 mg/dL Low 0.58-0.96 [facility] Comment on above: Order Comment: Talia parsons Type: BLOOD SPECIMENOrdering Facility: [facility] Address: [address] [place] [address] Performed By: #### 2 4321-2, 3016-3 ####[facility] LABIA [id number] [address] Creatinine and Glomerular filtration rate.predicted panel (S/P/Bld) 130 mL/min/1.73m??? Normal >=60 [facility] Comment on above: Order Comment: Talia parsons Type: BLOOD SPECIMENOrdering Facility: [facility] Address: [address] [place] [address] Result Comment: Danae mated Glomerular Filtration Rate (eGFR) is calculated using the 2020 CKD-EPI creatinine equation. This equation utilizes serum creatinine, sex, and age as parameters. The creatinine assay has traceable calibration to isotope dilution-mass spectrometry. Refer to KDIGO guidelines for clinical interpretation. In patients with unstable renal function, e.g. those with acute kidney injury, the eGFR may not accurately reflect actual GFR. Performed By: #### 2 4321-2, 3016-3 ####[facility] LABCLIA [id number] [place] [address] [place] Glucose [Mass/Vol] 75 mg/dL Normal 74-99 [facility] Comment on above: Order Comment: Talia parsons Type: BLOOD SPECIMENOrdering Facility: [facility] Address: [address] [place] [address] Result Comment: The [place] Diabetes Association (ADA) provides guidance for cutoff values for fasting glucose and random glucose. The ADA defines fasting as no caloric intake for at least 8 hours. Fasting plasma glucose results between 100 to 125 mg/dL indicate increased risk for diabetes (prediabetes). Fasting plasma glucose results greater than or equal to 126 mg/dL meet the criteria for diagnosis of diabetes. In the absence of unequivocal hyperglycemia, results should be confirmed by repeat testing. In a patient with classic symptoms of hyperglycemia or hyperglycemic crisis, random plasma glucose results greater than or equal to 200 mg/dL meet the criteria for diagnosis of diabetes. Reference: Standards of Medical Care in Diabetes 2016, [place] Diabetes Association. Diabetes Care. 2016.39(Suppl 1). Performed By: #### 2 4321-2, 6-3 ####[facility] LABCLIA [id number] [place] [address] [place] Potassium [Moles/Vol] 4.0 mmol/L Normal 3.7-5.1 [facility] Comment on above: Order Comment: Speci men Type: BLOOD SPECIMENOrdering Facility: [facility] Address: [address] [place] [address] Performed By: #### 2 4320-2, 3 ####[facility] LABCLIA [id number] [place] [address] [place] Sodium [Moles/Vol] 136 mmol/L Normal 136-144 [facility] Comment on above: Order Comment: Speci men Type: BLOOD SPECIMENOrdering Facility: [facility] Address: [address] [place] [address] Performed By: #### 2 4320-2, 3 ####[facility] LABCLIA [id number] [place] [address] [place] Urea nitrogen [Mass/Vol] 5 mg/dL Low 7-21 [facility] Comment on above: Order Comment: Speci men Type: BLOOD SPECIMENOrdering Facility: [facility] Address: [address] [place] [address] Performed By: #### 2 4320-2, 3015-3 ####[facility] LABCLIA [id number] [place] [id number] [place] CBC W Auto Differential pane l (Bld)on 05-26-2024 Basophils (Bld) [#/Vol] 0.04 10*3/uL Normal <0.11 [facility] Comment on above: Order Comment: Speci men Type: BLOOD SPECIMENOrdering Facility: [facility] Address: [address] [place] [address] Performed By: #### 5 7021-8 ####[facility] LABCLIA [id number] [place] [address] [place] Basophils/100 WBC (Bld) 0.3 % Normal [facility] Comment on above: Order Comment: Speci men Type: BLOOD SPECIMENOrdering Facility: [facility] Address: [address] [place] [address] Performed By: #### 5 7021-8 ####[facility] LABCLIA [id number] [place] [address] [place] Differential cell count method Nom (Bld) Auto Normal [facility] Comment on above: Order Comment: Speci men Type: BLOOD SPECIMENOrdering Facility: [facility] Address: [address] [place] [address] Performed By: #### 5 7021-8 ####[facility] LABCLIA [id number] [place] [address] [place] Eosinophils (Bld) [#/Vol] 0.09 10*3/uL Normal <0.46 [facility] Comment on above: Order Comment: Speci men Type: BLOOD SPECIMENOrdering Facility: [facility] Address: [address] [place] [address] Performed By: #### 5 7021-8 ####[facility] LABCLIA [id number] [place] [address] [place] Eosinophils/100 WBC (Bld) 0.8 % Normal [facility] Comment on above: Order Comment: Speci men Type: BLOOD SPECIMENOrdering Facility: [facility] Address: [address] [place] [address] Performed By: #### 5 7021-8 ####[facility] LABCLIA [id number] [place] [address] [place] Erythrocyte distribution width (RBC) [Ratio] 14.9 % Normal 11.5-15.0 [facility] Comment on above: Order Comment: Speci men Type: BLOOD SPECIMENOrdering Facility: [facility] Address: [address] [place] [address] Performed By: #### 5 7021-8 ####[facility] LABCLIA [id number] [place] [address] [place] Hematocrit (Bld) [Volume fraction] 33.9 % Low 36.0-46.0 [facility] Comment on above: Order Comment: Speci men Type: BLOOD SPECIMENOrdering Facility: [facility] Address: [address] [place] [address] Performed By: #### 5 7021-8 ####[facility] LABCLIA [id number] [place] [address] [place] Hemoglobin (Bld) [Mass/Vol] 10.3 g/dL Low 11.5-15.5 [facility] Comment on above: Order Comment: Speci men Type: BLOOD SPECIMENOrdering Facility: [facility] Address: [address] [place] [address] Performed By: #### 5 7021-8 ####[facility] LABIA [id number] [place] [address] [place] Immature granulocytes (Bld) [#/Vol] 0.17 10*3/uL High <0.10 [facility] Comment on above: Order Comment: Speci men Type: BLOOD SPECIMENOrdering Facility: [facility] Address: [address] [place] [address] Performed By: #### 5 7021-8 ####[facility] LABCLIA [id number] [place] [address] [place] Immature granulocytes/100 WBC (Bld) 1.4 % Normal [facility] Comment on above: Order Comment: Speci men Type: BLOOD SPECIMENOrdering Facility: [facility] Address: [address] [place] [address] Performed By: #### 5 7021-8 ####[facility] LABCLIA [id number] [place] [address] [place] Lymphocytes (Bld) [#/Vol] 2.11 10*3/uL Normal 1.00-4.00 [facility] Comment on above: Order Comment: Speci men Type: BLOOD SPECIMENOrdering Facility: [facility] Address: [address] [place] [address] Performed By: #### 5 7021-8 ####[facility] LABIA [id number] [place] [address] [place] Lymphocytes/100 WBC (Bld) 17.6 % Normal [facility] Comment on above: Order Comment: Speci men Type: BLOOD SPECIMENOrdering Facility: [facility] Address: [address] [place] [address] Performed By: #### 5 7021-8 ####[facility] LABCLIA [id number] [place] [address] [place] MCH (RBC) [Entitic mass] 23.1 pg Low 26.0-34.0 [facility] Comment on above: Order Comment: Speci men Type: BLOOD SPECIMENOrdering Facility: [facility] Address: [address] [place] [address] Performed By: #### 5 7021-8 ####[facility] LABCLIA [id number] [place] [address] [place] MCHC (RBC) [Mass/Vol] 30.4 g/dL Low 30.5-36.0 [facility] Comment on above: Order Comment: Speci men Type: BLOOD SPECIMENOrdering Facility: [facility] Address: [address] [place] [address] Performed By: #### 5 7021-8 ####[facility] LABCLIA [id number] [place] [address] [place] MCV (RBC) [Entitic vol] 76.0 fL Low 80.0-100.0 [facility] Comment on above: Order Comment: Speci men Type: BLOOD SPECIMENOrdering Facility: [facility] Address: [address] [place] [address] Performed By: #### 5 7021-8 ####[facility] LABCLIA [id number] [place] [address] [place] Monocytes (Bld) [#/Vol] 0.82 10*3/uL Normal <0.87 [facility] Comment on above: Order Comment: Speci men Type: BLOOD SPECIMENOrdering Facility: [facility] Address: [address] [place] [address] Performed By: #### 5 7021-8 ####[facility] LABCLIA [id number] [place] [address] [place] Monocytes/100 WBC (Bld) 6.8 % Normal [facility] Comment on above: Order Comment: Speci men Type: BLOOD SPECIMENOrdering Facility: [facility] Address: [address] [place] [address] Performed By: #### 5 7021-8 ####[facility] LABIA [id number] [place] [address] [place] Neutrophils (Bld) [#/Vol] 8.76 10*3/uL High 1.45-7.50 [facility] Comment on above: Order Comment: Speci men Type: BLOOD SPECIMENOrdering Facility: [facility] Address: [address] [place] [address] Performed By: #### 5 7021-8 ####[facility] LABCLIA [id number] [place] [address] [place] Neutrophils/100 WBC (Bld) 73.1 % Normal [facility] Comment on above: Order Comment: Speci men Type: BLOOD SPECIMENOrdering Facility: [facility] Address: [address] [place] [address] Performed By: #### 5 7021-8 ####[facility] LABIA [id number] [place] [address] [place] Nucleated RBC (Bld) [#/Vol] 10*3/uL Normal <0.01 [facility] Comment on above: Order Comment: Speci men Type: BLOOD SPECIMENOrdering Facility: [facility] Address: [address] [place] [address] Performed By: #### 5 7021-8 ####[facility] LABIA [id number] [place] [address] [place] Nucleated RBC/100 WBC (Bld) [Ratio] 0.0 /100 WBC Normal [facility] Comment on above: Order Comment: Speci men Type: BLOOD SPECIMENOrdering Facility: [facility] Address: [address] [place] [address] Performed By: #### 5 7021-8 ####[facility] LABIA [id number] [place] [address] [place] Platelet mean volume (Bld) [Entitic vol] 10.9 fL Normal 9.0-12.7 [facility] Comment on above: Order Comment: Speci men Type: BLOOD SPECIMENOrdering Facility: [facility] Address: [address] [place] [address] Performed By: #### 5 7021-8 ####[facility] LABIA [id number] [place] [address] [place] Platelets (Bld) [#/Vol] 286 10*3/uL Normal 150-400 [facility] Comment on above: Order Comment: Speci men Type: BLOOD SPECIMENOrdering Facility: [facility] Address: [address] [place] [address] Performed By: #### 5 7021-8 ####[facility] LABCLIA [id number] [place] [address] [place] RBC (Bld) [#/Vol] 4.46 10*6/uL Normal 3.90-5.20 [facility] Comment on above: Order Comment: Speci men Type: BLOOD SPECIMENOrdering Facility: [facility] Address: [address] [place] [address] Performed By: #### 5 7021-8 ####[facility] LABCLIA [id number] [place] [address] [place] WBC (Bld) [#/Vol] 11.99 10*3/uL High 3.70-11.00 [facility] Comment on above: Order Comment: Speci men Type: BLOOD SPECIMENOrdering Facility: [facility] Address: [address] [place] [address] Performed By: #### 5 7021-8 ####[facility] LABCLIA [id number] [address] OF [place] CNOVon 05-26-2024 CNOV Office Visit (CARCMN) KIMBERLY JEONG ([id number]) 1995 F Date Time Provider Department 05/26/24 10:00 AM SAMI VORA CARCMN During your visit today, we recorded the following information about you: Pulse Respiration Blood pressure Weight 91/minute 16/minute 108/65 80.7 kg Height 1.575 m Sami Vora MD 06/07/2024 1:32 PM Signed [facility] [place] [facility] Department of Cardiovascular Medicine SECTION OF CLINICAL CARDIOLOGY OUTPATIENT VISIT DATE May 26, 2024 OUTPATIENT VISIT TYPE NEW PRIMARY CARE PHYSICIAN : Surjit Aguirre [address] [place] [address] REFERRING PHYSICIAN: Rosario Garcia [address] [facility] [address] CHIEF COMPLAINT: Palpitations HISTORY OF PRESENT ILLNESS: Ms. Jeong, 28F ( 24w3d), w. History of myocarditis as a toddler who presents as a consult for palpitations. In brief, Mrs. Jeong, started having palpitations about 4 weeks ago and are often time associated with shortness of breath and lightheadedness. She feels this daily and last for a few minutes at a time. She endorses orthopnea which was not noted in her prior pregnancies and lower extremity edema which has started earlier than it has in her prior two pregnancies. 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 Devin Lay) when she was last seen on 12/10/13. Her only notable family cardiac history is her father who has hypertension. She denies chest pain, cough or PND. PAST CARDIAC HISTORY: None PAST MEDICAL HISTORY Diagnosis Date Anemia complicating , second trimester 07/04/2020 Contracted pelvis during depression anxiety fracture 11 years old right wrist-fell out of bunk bed H/O delivery, currently Hyperemesis gravidarum ER: 01/29/2024 Injury of right ankle 09/10/2023 Myocarditis (HCC) age 18 months [address] Lay--recheck age 18 yrs PMH - PAST MEDICAL HISTORY OF 06/2007 Right wrist fracture PMH - PAST MEDICAL HISTORY OF normal color vision depression Recurrent major depressive disorder, in partial remission (HCC) 11/03/2020 Sprain of right ankle 09/10/2023 Sprain of unspecified ligament of right ankle, initial encounter 09/10/2023 Unspecified injury of right ankle, subsequent encounter 09/10/2023 PAST SURGICAL HISTORY Procedure Laterality Date DELIVERY ONLY 01/05/2022 LTCS PAST SURGICAL HISTORY OF wisdom teeth SOCIAL HISTORY Social History Tobacco Use Smoking status: Never Smokeless tobacco: Never Vaping Use Vaping status: Never Used Substance Use Topics Alcohol use: Not Currently Drug use: No FAMILY HISTORY Problem Relation Age of Onset other (Celiac disease) Mother Hypertension Father No Known Problems Sister No Known Problems Sister other (other) Brother No Known Problems Brother No Known Problems Brother No Known Problems Brother Diabetes Maternal Grandmother Breast Cancer Maternal Grandmother No Known Problems Maternal Grandfather Hypertension Paternal Grandmother Colon Cancer Paternal Grandmother Hyperlipidemia Paternal Grandmother Cancer Paternal Grandfather Bladder Cancer No Known Problems Son Patient-Entered Questionnaire Scores 09/17/2017 12/20/2020 09/10/2023 PROMIS Global Health - (T-Scores - the mean of general population = 50. Five points is a clinically meaningful difference.) Physical T-Score 50.8 44.9 47.7 Mental T-Score 50.8 36.3 45.8 Sleep Duration Level: N/A ALLERGIES: ALLERGIES Allergen Reactions Pollen Other: See Comments Nasal congestion and drainage MEDICATIONS: multivitamin (CALIXTO ) 65 mg iron- 1 mg tab once daily. famotidine (PEPCID) 20 mg tablet two times a day. promethazine HCl (PHENERGAN ORAL) Take 25 mg by mouth every 6 hours. ondansetron (ZOFRAN) 4 mg tablet Take 1 tablet by mouth every 8 hours as needed for nausea/vomiting. traZODone (DESYREL) 50 mg tablet PUMP SET MISC Zofran (Patient not taking: Reported on 05/21/2024) aspirin 81 mg cap Take 81 mg by mouth once daily. Starting at 12 weeks. (Patient not taking: Reported on 05/26/2024) VRAYLAR 3 mg capsule Take 3 mg by mouth once daily. (Patient not taking: Reported on 05/26/2024) DULoxetine (CYMBALTA) 60 mg capsule Take 60 mg by mouth once daily. (Patient not taking: Reported on 05/21/2024) REVIEW OF SYSTEMS: GENERAL: Negative for: Weight loss or gain, Fever or Chills, Weakness and Sleep difficulties. HEENT: Negative for: Headache, Impaired Vision, Glasses, Hearing Impairment, Ringing in Ears, Nosebleeds, Poor dental care, Bleeding Gums, Dentures NECK: Negative for: Swelling, Pain, Stiffness RESPIRATORY: Negative for: Cough, Blood in Sputum, Shortness of (more content not included)... Normal [facility] Reagin and Treponema pallidu m IgG and IgM [Interp]on 05-26-2024 T. pallidum IgG+IgM IA Ql (S) Non-Reactive Normal Nonreactive [facility] Comment on above: Order Comment: Speci men Type: BLOOD SPECIMENOrdering Facility: [facility] Address: [address] [place] [address] Performed By: #### 7 3752-8 ####[facility] LABIA [id number] [place] [address] [place] Reagin+T pallidum IgG+IgM Se rPl-Impon 05-26-2024 Reagin and Treponema pallidum IgG and IgM [Interp] Cannot exclude recent Treponemal infection if specimen collected within 7-10 days after appearance of suspect lesions or 2-3 weeks after an exposure. Clinical correlation is required. Normal [facility] Comment on above: Order Comment: Speci men Type: BLOOD SPECIMENOrdering Facility: [facility] Address: [address] [place] [address] Performed By: #### 7 3752-8 ####[facility] LABIA [id number] [place] [address] [place] THYROID STIMULATING HORMONEo n 05-26-2024 TSH Qn 1.640 m[IU]/L [facility] Comment on above: If the patient is pr egnant, TSH reference range varies by gestational period: First Trimester (weeks 9-12): 0.180-2.990 mIU/L Second Trimester: 0.110-3.980 mIU/L Third Trimester: 0.480-4.710 mIU/L Frederic Black et al. A Practical Approach for the Verifications and Determination of Site- and Trimester-Specific Reference Intervals for Thyroid Function tests in . Thyroid, 2019:29:3:412-420. Jose Juan Nascimento, et al. 2017 Guidelines of the [place] Thyroid Association for the Diagnosis and Management of Thyroid Disease during and the . Thyroid, 2017:27:3:315-389. TSH Qnon 05-26-2024 Interpretation and review of laboratory results Normal [facility] TSH SerPl-aCncon 05-26-2024 TSH Qn 1.640 m[IU]/L Normal 0.270-4.200 [facility] Comment on above: Order Comment: Speci men Type: BLOOD SPECIMENOrdering Facility: [facility] Address: [address], [place] [address] Result Comment: If t he patient is , TSH reference range varies by gestational period: First Trimester (weeks 9-12): 0.180-2.990 mIU/L Second Trimester: 0.110-3.980 mIU/L Third Trimester: 0.480-4.710 mIU/L Frederic Black et al. A Practical Approach for the Verifications and Determination of Site- and Trimester-Specific Reference Intervals for Thyroid Function tests in . Thyroid, 2019:29:3:412-420. Jose Juan Nascimento, et al. 2017 Guidelines of the [place] Thyroid Association for the Diagnosis and Management of Thyroid Disease during and the . Thyroid, 2017:27:3:315-389. Performed By: #### 2 4321-2, 3016-3 ####[facility] LABCLIA [id number] [facility] [address] [facility] Agnieszka 05-17-2024 EMREN Telephone (OBGYWM) KIMBERLY JEONG ([id number]) 1995 F Date Time Provider Department 05/17/24 DANII WEINBERG During your visit today, we recorded the following information about you: Bibiana Hernandes RN 05/17/2024 8:53 AM Signed ----- Message from Danii Weinberg APRN.SAMPLE MOUNTER sent at 05/17/2024 7:17 AM EDT ----- Reviewed. Please add to record. Needs 1 more cervical length screening at 24 weeks. Danii Weinberg APRN.Bibiana Munoz RN 05/17/2024 8:54 AM Signed Patient notified. She would like to schedule in [place] since she works in [employer]. Please file order. We will then route to PSS to assist with scheduling. Thank you. ASHLEE Giordano Emily, APRN.CNP 05/17/2024 8:59 AM Signed Signed. Danii Weinberg APRN.CNP Allergies As of Date: 05/17/2024 Noted Allergy Reaction POLLEN 12/05/2011 14 - Other: See Comments Comments: Nasal congestion and drainage Date Reviewed: 05/13/2024 Reviewed by: Bibiana Weathers MD - Fully Assessed Reason for Visit: Orders [681] Primary Visit Diagnosis:History of labor [Z87.51] Order(s):OBSTETRIC ULTRASOUND [facility] [2002185] Order #: [id number]: 1 FUTURE Prescriptions as of 05/19/2024 - multivitamin (CALIXTO ) 65 mg iron- 1 mg tab once daily. - famotidine (PEPCID) 20 mg tablet two times a day. - PUMP SET MISC Zofran - aspirin 81 mg cap Take 81 mg by mouth once daily. Starting at 12 weeks. - promethazine HCl (PHENERGAN ORAL) Take 25 mg by mouth every 6 hours. - ondansetron (ZOFRAN) 4 mg tablet Take 1 tablet by mouth every 8 hours as needed for nausea/vomiting. - VRAYLAR 3 mg capsule Take 3 mg by mouth once daily. - traZODone (DESYREL) 50 mg tablet - DULoxetine (CYMBALTA) 60 mg capsule Take 60 mg by mouth once daily. Problem List As Of Date 05/17/2024 Noted Resolved Pain in limb [M79.609] 01/22/2010 02/29/2020 Acute pain of left shoulder [M25.512] 09/17/2017 02/29/2020 History of viral myocarditis [Z86.79] 02/21/2020 Nausea and vomiting in [O21.9] 02/21/2020 08/22/2020 Depression affecting [O99.340, F32.A] 02/21/2020 UTI (urinary tract infection) in , ant*02/25/2020 08/22/2020 Tetrahydrocannabinol (THC) use disorder, mild, *02/29/2020 Encounter for supervision of normal first pregn*06/06/2020 08/22/2020 Elevated glucose [R73.09] 07/04/2020 08/22/2020 Anemia complicating , second trimester*07/04/2020 08/22/2020 Recurrent major depressive disorder, in partial*11/03/2020 02/04/2024 H/O delivery, currently [O09.8*06/12/2021 Family history of spina bifida [Z82.79] 06/12/2021 Encounter for supervision of high risk pregnanc*10/30/2021 Unspecified injury of right ankle, subsequent e*09/10/2023 02/04/2024 Sprain of unspecified ligament of right ankle, *09/10/2023 02/04/2024 Injury of right ankle [S99.911A] 09/10/2023 02/04/2024 Sprain of right ankle [S93.401A] 09/10/2023 02/04/2024 Hyperemesis affecting , antepartum [O2*02/04/2024 Obesity affecting in first trimester *02/04/2024 History of section [Z98.891] 02/04/2024 Anxiety during [O99.340, F41.9] 02/04/2024 Encounter for screening for nuchal tr*04/14/2024 Encounter Status:Closed by BIBIANA HERNANDES on 05/19/24 Normal [facility] Examination level ultrasound on 05-14-2024 Indication Detailed anatomic survey. Maternal obesity, BMI >30. History of delivery, family history of spina bifida Impression REMOTE READ The patient is referred for a detailed anatomic survey. - Single, live, intrauterine . - biometry is consistent with the established gestational age. - No malformations were visualized on a complete detailed anatomic survey. - The amniotic fluid volume is normal amount. - The placenta is anterior, fundal. - The Transvaginal cervical length measures 46 mm with no evidence of funneling or other dynamic changes. - Not all structural malformations can be detected by ultrasound examination. Recommendations Serial cervical lengths every 2 weeks until 24 weeks. Additional follow-up as clinically indicated. Maternal Assessment Height 160 cm Height (ft) 5 ft Height (in) 3 in Physical Exam Initial weight (lb) 178 lb Initial BMI 31.53 kg/m Method Transabdominal and transvaginal ultrasound examination. View: Adequate visualization Hernández . Number of fetuses: 1 Dating LMP on: 12/07/2023 GA by LMP 22 w + 4 d RADHA by LMP: 09/12/2024 GA by prior assessment 22 w + 4 d RADHA by prior assessment: 09/12/2024 Ultrasound examination on: 05/13/2024 GA by U/S based upon: AC, BPD, Femur, HC GA by U/S 23 w + 6 d RADHA by U/S: 09/03/2024 Assigned: based on stated RADHA, selected on 03/09/2024 Assigned GA 22 w + 4 d Assigned RADHA: 09/12/2024 General Evaluation Cardiac activity present. FHR 166 bpm. movements: present. Presentation: cephalic Placenta: Placental site: anterior, fundal Umbilical cord: Cord vessels: 3 vessel cord. Insertion site: normal insertion Amniotic fluid: Amount of AF: normal amount. MVP 4.4 cm Growth Overview Exam date GA BPD (mm) HC (mm) AC (mm) FL (mm) HL (mm) EFW (g) 05/13/2024 22w 4d 57.8 85% 220.2 85% 191.3 81% 41.9 92% 39.6 88% 631 93% Biometry Standard BPD 57.8 mm 23w 5d 85% Hadlock OFD 79.9 mm 24w 2d >99% Nicolaides HC 220.2 mm 23w 6d 85% Latisha Cerebellum tr 26.5 mm 23w 5d 97% Hill AC 191.3 mm 23w 6d 81% Hadlock Femur 41.9 mm 23w 6d 92% Latisha Humerus 39.6 mm 24w 1d 88% Latisha EFW 631 g 23w 4d 93% Hadlock EFW (lb) 1 lb EFW (oz) 6 oz EFW by: Hadlock (HC-AC-FL) [facility] 5.7 mm CM 5.6 mm 51% Nicolaides Extremities / Bony Struc FL / HC 0.19 Other Structures FHR 166 bpm Anatomy Cranium: normal Lateral ventricles: normal Choroid plexus: normal Midline falx: normal Cavum septi pellucidi: normal Cerebellum: normal Cisterna magna: normal Head / Neck Vermis: normal Neck: normal Nuchal fold: normal Lips: normal Profile: normal Nose: normal Face Maxilla: normal Mandible: normal Orbits: normal Lens: normal 4-chamber view: normal RVOT view: normal LVOT view: normal 3-vessel view: normal 0-yijzmu-leikvja view: normal Heart / Thorax Situs: situs solitus (normal) Aortic arch view: normal SVC: normal IVC: normal Cardiac axis: normal Rt lung: normal Lt lung: normal Diaphragm: normal Cord insertion: normal Stomach: normal Kidneys: normal Bladder: normal Genitals: normal Abdomen Abdom. wall: normal Cervical spine: normal Thoracic spine: normal Lumbar spine: normal Sacral spine: normal Arms: normal Legs: normal Rt upper arm: normal Rt forearm: normal Rt hand: normal Rt fingers: normal Lt upper arm: normal Lt forearm: normal Lt hand: normal Lt fingers: normal Rt upper leg: normal Rt lower leg: normal Rt foot: normal Lt upper leg: normal Lt lower leg: normal Lt foot: normal sex: male sex: normal Wants to know sex: yes Maternal Structures Uterus / Cervix Uterus: Visualized Cervix: Visualized Approach: Transvaginal Cervical length 46.0 mm Ovaries / Tubes / Adnexa Rt ovary: Normal Lt ovary: Normal Performed By: Meghana Mcmahon RDMS Read By: Katarzyna Benoit M.D. MATERNAL MEDICINE [facility] Examination level ultrasound on 05-13-2024 [facility]iology [facility] V[facility] Tele[facility] (OCTAVIO) KIMBERLY JEONG ([id number]) 1995 F Date Time Provider Department 05/11/24 DANII WEINBERG During your visit today, we recorded the following information about you: Konstantin Simpson MA 05/11/2024 10:06 AM Signed Received [facility] paperwork from employer. Awaiting patients response with amount of leave she is requesting. TOI [place], [place] 05/11/2024 1:26 PM Signed [place] paperwork completed and on providers desk for signature. TOI [place], [place] 05/12/2024 2:00 PM Signed FMLA paperwork has been completed and faxed to the number patient provided. Patient notified. Konstantin Simpson MA Allergies As of Date: 05/11/2024 Noted Allergy Reaction POLLEN 12/05/2011 14 - Other: See Comments Comments: Nasal congestion and drainage Date Reviewed: 03/09/2024 Reviewed by: Alla Skaggs MA - Fully Assessed Prescriptions as of 05/12/2024 - multivitamin (CALIXTO ) 65 mg iron- 1 mg tab once daily. - famotidine (PEPCID) 20 mg tablet two times a day. - PUMP SET MISC Zofran - aspirin 81 mg cap Take 81 mg by mouth once daily. Starting at 12 weeks. - promethazine HCl (PHENERGAN ORAL) Take 25 mg by mouth every 6 hours. - ondansetron (ZOFRAN) 4 mg tablet Take 1 tablet by mouth every 8 hours as needed for nausea/vomiting. - VRAYLAR 3 mg capsule Take 3 mg by mouth once daily. - traZODone (DESYREL) 50 mg tablet - DULoxetine (CYMBALTA) 60 mg capsule Take 60 mg by mouth once daily. Problem List As Of Date 05/11/2024 Noted Resolved Pain in limb [M79.609] 01/22/2010 02/29/2020 Acute pain of left shoulder [M25.512] 09/17/2017 02/29/2020 History of viral myocarditis [Z86.79] 02/21/2020 Nausea and vomiting in [O21.9] 02/21/2020 08/22/2020 Depression affecting [O99.340, F32.A] 02/21/2020 UTI (urinary tract infection) in , ant*02/25/2020 08/22/2020 Tetrahydrocannabinol (THC) use disorder, mild, *02/29/2020 Encounter for supervision of normal first pregn*06/06/2020 08/22/2020 Elevated glucose [R73.09] 07/04/2020 08/22/2020 Anemia complicating , second trimester*07/04/2020 08/22/2020 Recurrent major depressive disorder, in partial*11/03/2020 02/04/2024 H/O delivery, currently [O09.8*06/12/2021 Family history of spina bifida [Z82.79] 06/12/2021 Encounter for supervision of high risk pregnanc*10/30/2021 Unspecified injury of right ankle, subsequent e*09/10/2023 02/04/2024 Sprain of unspecified ligament of right ankle, *09/10/2023 02/04/2024 Injury of right ankle [S99.911A] 09/10/2023 02/04/2024 Sprain of right ankle [S93.401A] 09/10/2023 02/04/2024 Hyperemesis affecting , antepartum [O2*02/04/2024 Obesity affecting in first trimester *02/04/2024 History of section [Z98.891] 02/04/2024 Anxiety during [O99.340, F41.9] 02/04/2024 Encounter for screening for nuchal tr*04/14/2024 Encounter Status:Closed by KONSTANTIN SIMPSON on 05/12/24 [facility] KIM[facility] JE[facility] ([id number]) 1995 F Date Time Provider Department 05/05/24 [facility] OBGYF2 During your visit today, we recorded the following information about you: Maria Teresa Quinn 05/05/2024 8:30 AM Signed LM for patient to call the office to reschedule her ultrasund scheduled for 05/06/2024 in [place] needs to be an hour anatomy scan Allergies As of Date: 05/05/2024 Noted Allergy Reaction POLLEN 12/05/2011 14 - Other: See Comments Comments: Nasal congestion and drainage Date Reviewed: 03/09/2024 Reviewed by: Alla Skaggs MA - Fully Assessed Reason for Visit: Appointment [186] Prescriptions as of 05/05/2024 - multivitamin (CALIXTO ) 65 mg iron- 1 mg tab once daily. - famotidine (PEPCID) 20 mg tablet two times a day. - PUMP SET MISC Zofran - aspirin 81 mg cap Take 81 mg by mouth once daily. Starting at 12 weeks. - promethazine HCl (PHENERGAN ORAL) Take 25 mg by mouth every 6 hours. - ondansetron (ZOFRAN) 4 mg tablet Take 1 tablet by mouth every 8 hours as needed for nausea/vomiting. - VRAYLAR 3 mg capsule Take 3 mg by mouth once daily. - traZODone (DESYREL) 50 mg tablet - DULoxetine (CYMBALTA) 60 mg capsule Take 60 mg by mouth once daily. Problem List As Of Date 05/05/2024 Noted Resolved Pain in limb [M79.609] 01/22/2010 02/29/2020 Acute pain of left shoulder [M25.512] 09/17/2017 02/29/2020 History of viral myocarditis [Z86.79] 02/21/2020 Nausea and vomiting in [O21.9] 02/21/2020 08/22/2020 Depression affecting [O99.340, F32.A] 02/21/2020 UTI (urinary tract infection) in , ant*02/25/2020 08/22/2020 Tetrahydrocannabinol (THC) use disorder, mild, *02/29/2020 Encounter for supervision of normal first pregn*06/06/2020 08/22/2020 Elevated glucose [R73.09] 07/04/2020 08/22/2020 Anemia complicating , second trimester*07/04/2020 08/22/2020 Recurrent major depressive disorder, in partial*11/03/2020 02/04/2024 H/O delivery, currently [O09.8*06/12/2021 Family history of spina bifida [Z82.79] 06/12/2021 Encounter for supervision of high risk pregnanc*10/30/2021 Unspecified injury of right ankle, subsequent e*09/10/2023 02/04/2024 Sprain of unspecified ligament of right ankle, *09/10/2023 02/04/2024 Injury of right ankle [S99.911A] 09/10/2023 02/04/2024 Sprain of right ankle [S93.401A] 09/10/2023 02/04/2024 Hyperemesis affecting , antepartum [O2*02/04/2024 Obesity affecting in first trimester *02/04/2024 History of section [Z98.891] 02/04/2024 Anxiety during [O99.340, F41.9] 02/04/2024 Encounter for screening for nuchal tr*04/14/2024 Encounter Status:Closed by MARIA TERESA QUINN on 05/05/24 Normal [facility] Examination level ultrasound on 04-14-2024 Indication Cervical length. History of delivery Impression REMOTE READ - The patient presents for TVS for cervical length measurement to assess the patient's risk for . - Single, live, intrauterine . - The cervical length measures 43.7 mm with no evidence of funneling or other dynamic changes. Recommendations Return as scheduled for detailed anatomic survey and cervical length History General History Rhesus: Rh positive Height 160 cm Height (ft) 5 ft Height (in) 3 in Maternal Assessment Height 160 cm Height (ft) 5 ft Height (in) 3 in Physical Exam Initial weight (lb) 178 lb Initial BMI 31.53 kg/m Method Transabdominal and transvaginal ultrasound examination Hernández . Number of fetuses: 1 Dating LMP on: 12/07/2023 GA by LMP 18 w + 3 d RADHA by LMP: 09/12/2024 GA by prior assessment 18 w + 3 d RADHA by prior assessment: 09/12/2024 Assigned: based on stated RADHA, selected on 03/09/2024 Assigned GA 18 w + 3 d Assigned RADHA: 09/12/2024 General Evaluation Cardiac activity present. FHR 149 bpm. movements: present. Presentation: breech Placenta: Placental site: anterior, fundal Umbilical cord: Cord vessels: 3 vessel cord. Insertion site: suboptimal Amniotic fluid: Amount of AF: normal amount. MVP 4.6 cm Biometry Standard EFW by: Hadlock (HC-AC-FL) [facility] 5.3 mm Other Structures FHR 149 bpm Anatomy Cranium: normal Lateral ventricles: normal Choroid plexus: normal Midline falx: normal Cavum septi pellucidi: normal Cerebellum: normal Cisterna magna: normal 4-chamber view: normal RVOT view: normal LVOT view: normal 5-uiorbi-sflndgx view: normal Heart / Thorax Situs: situs solitus (normal) Diaphragm: normal Cord insertion: normal Stomach: normal Kidneys: normal Bladder: normal Maternal Structures Uterus / Cervix Cervix details: normal Approach: Transvaginal Cervical length 43.7 mm Ovaries / Tubes / Adnexa Rt ovary: Normal Lt ovary: Normal Performed By: Meghana Mcmahon RDMS Read By: Vijay Gordon M.D. MATERNAL MEDICINE [facility] Radiology Study observation (narrative) [facility] Agnieszka 03-31-2024 CNPN Telephone (OBGYWM) KIMBERLY JEONG ([id number]) 1995 F Date Time Provider Department 03/31/24 DANII WEINBERG OBJUHI During your visit today, we recorded the following information about you: Justin Peterson RN 03/31/2024 9:03 AM Signed Received fax from [employer] stating Pt [[facility] ID [id number]/ Phone # ] has been noncompliant since 03/18/24 and agreed to speak 03/24/24. They have left 3 messages and Pt has not responded. Pt will be discharged from [facility] services on 04/01/24. [facility] will fax the patient summary on the discharge date unless they hear back from patient to continue service. Justin Peterson RN Allergies As of Date: 03/31/2024 Noted Allergy Reaction POLLEN 12/05/2011 14 - Other: See Comments Comments: Nasal congestion and drainage Date Reviewed: 03/09/2024 Reviewed by: Alla Skaggs MA - Fully Assessed Prescriptions as of 03/31/2024 - multivitamin (CALIXTO ) 65 mg iron- 1 mg tab once daily. - famotidine (PEPCID) 20 mg tablet two times a day. - PUMP SET MISC Zofran - aspirin 81 mg cap Take 81 mg by mouth once daily. Starting at 12 weeks. - promethazine HCl (PHENERGAN ORAL) Take 25 mg by mouth every 6 hours. - ondansetron (ZOFRAN) 4 mg tablet Take 1 tablet by mouth every 8 hours as needed for nausea/vomiting. - VRAYLAR 3 mg capsule Take 3 mg by mouth once daily. - traZODone (DESYREL) 50 mg tablet - DULoxetine (CYMBALTA) 60 mg capsule Take 60 mg by mouth once daily. Problem List As Of Date 03/31/2024 Noted Resolved Pain in limb [M79.609] 01/22/2010 02/29/2020 Acute pain of left shoulder [M25.512] 09/17/2017 02/29/2020 History of viral myocarditis [Z86.79] 02/21/2020 Nausea and vomiting in [O21.9] 02/21/2020 08/22/2020 Depression affecting [O99.340, F32.A] 02/21/2020 UTI (urinary tract infection) in , ant*02/25/2020 08/22/2020 Tetrahydrocannabinol (THC) use disorder, mild, *02/29/2020 Encounter for supervision of normal first pregn*06/06/2020 08/22/2020 Elevated glucose [R73.09] 07/04/2020 08/22/2020 Anemia complicating , second trimester*07/04/2020 08/22/2020 Recurrent major depressive disorder, in partial*11/03/2020 02/04/2024 H/O delivery, currently [O09.8*06/12/2021 Family history of spina bifida [Z82.79] 06/12/2021 Encounter for supervision of high risk pregnanc*10/30/2021 Unspecified injury of right ankle, subsequent e*09/10/2023 02/04/2024 Sprain of unspecified ligament of right ankle, *09/10/2023 02/04/2024 Injury of right ankle [S99.911A] 09/10/2023 02/04/2024 Sprain of right ankle [S93.401A] 09/10/2023 02/04/2024 Hyperemesis affecting , antepartum [O2*02/04/2024 Obesity affecting in first trimester *02/04/2024 History of section [Z98.891] 02/04/2024 Anxiety during [O99.340, F41.9] 02/04/2024 Encounter Status:Closed by JUSTIN PETERSON on 03/31/24 Normal [facility] CNCOon 03-26-2024 CNCO Letter Text Normal [facility] nuchal translucency me asured by on 03-09-2024 Indication First trimester anatomic survey Maternal obesity, BMI >30 Impression REMOTE READ The patient is referred for a first trimester anatomy scan including nuchal translucency measurement as clinically indicated. - Single, live, intrauterine . - [place] rump length measurement is consistent with the established gestational age. - A qualitative screen of the nuchal translucency and other anatomic structures was unremarkable on a complete first trimester anatomic assessment. - Not all structural malformations can be detected by ultrasound examination. Maternal Structures: Right Ovary: Size 30 mm x 25 mm x 23 mm Left Ovary: Size 24 mm x 23 mm x 20 mm Recommendations - A standard anatomic survey at 16 weeks and a detailed exam at 20 weeks is recommended for increased risk. Maternal Assessment Height 160 cm Height (ft) 5 ft Height (in) 3 in Physical Exam Initial weight (lb) 178 lb Initial BMI 31.53 kg/m Maternal assessment other: 3 Para 2 Method Transabdominal ultrasound examination Hernández . Number of fetuses: 1 Dating LMP on: 12/07/2023 GA by LMP 13 w + 2 d RADHA by LMP: 09/12/2024 GA by prior assessment 13 w + 2 d RADHA by prior assessment: 09/12/2024 Ultrasound examination on: 03/09/2024 GA by U/S based upon: CRL GA by U/S 13 w + 5 d RADHA by U/S: 09/09/2024 Assigned: based on stated RADHA, selected on 03/09/2024 Assigned GA 13 w + 2 d Assigned RADHA: 09/12/2024 General Evaluation Cardiac activity present Placenta: anterior Cord vessels: 3 vessel cord Amniotic fluid: normal amount Biometry Standard FHR 154 bpm CRL 75.6 mm 13w 5d 70% [place] First Trimester Anatomy Calvarium: normal Falx cerebri: normal Choroid plexus: normal Profile: normal Nasal bone: normal Retronasal triangle: normal Maxilla: normal Mandible: normal Nuchal translucency: Unremarkable Situs: normal Cardiac position: normal Cardiac axis: normal 4-chamber view: suboptimal 4-chamber view with color: suboptimal 1-muyubr-mlsallj view: suboptimal Abdominal cord insertion: normal Stomach: normal Kidneys: normal Bladder: normal Color doppler of perivesical umbilical arteries: normal Vertebral alignment: normal Arms: normal Hands: normal Legs: normal Feet: normal Maternal Structures Uterus / Cervix Uterus: Visualized Uterus length 155 mm Uterus width 113 mm Uterus height 91 mm Uterus Vol 826.4 cm Ovaries / Tubes / Adnexa Rt ovary: Visualized Rt ovary D1 30 mm Rt ovary D2 25 mm Rt ovary D3 23 mm Rt ovary Vol 8.8 cm Lt ovary: Visualized Lt ovary D1 24 mm Lt ovary D2 23 mm Lt ovary D3 20 mm Lt ovary Vol 5.9 cm Performed By: Johanna Sorto RDMS, RVT Read By: Vijay Gordon M.D. MATERNAL MEDICINE [facility] Radiology Study observation (narrative) [facility] LCTCLOAN99 PLUSon 03-09-2024 Cell-free DNA./Cell-free DNA.total Dosage of chromosome-specific cfDNA (cfDNA) [Molar fraction] 9% Normal [facility] Comment on above: Order Comment: Speci men Type: BLOOD SPECIMENOrdering Facility: [facility] Address: [address] [place] [address] Performed By: #### M AT21 ####[facility] LABCLIA [id number] [place] [address] Chr 13+18+21+X+Y aneuploidy Dosage of chromosome-specific cfDNA Ql (cfDNA) Negative Normal [facility] Comment on above: Order Comment: Speci men Type: BLOOD SPECIMENOrdering Facility: [facility] Address: [address] [place] [address] Performed By: #### M AT21 ####[employer] LABCLIA [id number] [place] [address] Chr 21 trisomy Dosage of chromosome-specific cfDNA Ql (cfDNA) Negative Normal [facility] Comment on above: Order Comment: Speci men Type: BLOOD SPECIMENOrdering Facility: [facility] Address: [address] [place] [address] Performed By: #### M AT21 ####[facility] LABCLIA [id number] [place] [address] Chr X and Y aneuploidy risk Sequencing Ql (cfDNA) [Interp] Not detected Normal [facility] Comment on above: Order Comment: Speci men Type: BLOOD SPECIMENOrdering Facility: [facility] Address: [address] [place] [address] Result Comment: Not Detected Not Detected Performed By: #### M AT21 ####[facility] LABCLIA [id number] [place] [address] Citation Jared (Reference lab test) Comment Normal [facility] Comment on above: Order Comment: Speci men Type: BLOOD SPECIMENOrdering Facility: [facility] Address: [address] [place] [address] Result Comment: 1. P tone DELGADO, et al. Jie Med. 2012;14(3):296-305. 2. Elías DONALD et al. Prenat Diag. 2013;33(6):591-597. 3. Maicol C, et al. Clin Chem. 2015 Apr;61(4):608-616. 4. Barry DELGADO, et al. Jie Med. 2011;13(11):913-920. 5. ACOG/SMFM Practice Bulletin No. 226, May 2020. Performed By: #### M AT21 ####[facility] [employer] LABCLIA [id number] [place] [address] Gestational age Estimated from conception date Hernández Normal [facility] Comment on above: Order Comment: Speci men Type: BLOOD SPECIMENOrdering Facility: [facility] Address: [address] [place] [address] Performed By: #### M AT21 ####[facility] LABCLIA [id number] [place] [address] GESTATIONALAGE AGE > OR = 9W Yes Normal [facility] Comment on above: Order Comment: Speci men Type: BLOOD SPECIMENOrdering Facility: [facility] Address: [address] [place] [address] Performed By: #### M AT21 ####[facility] LABCLIA [id number] [place] [address] Laboratory comment Jared (Report) Comment Normal [facility] Comment on above: Order Comment: Speci men Type: BLOOD SPECIMENOrdering Facility: [facility] Address: [address] [place] [address] Result Comment: The MaterniT(R) 21 PLUS laboratory-developed test (LDT) analyzes circulating cell-free DNA from a maternal blood sample. This test is used for screening purposes and not diagnostic. Clinical correlation is recommended. Validation data on twin pregnancies is limited and the ability of this test to detect aneuploidy in higher multiple gestations has not yet been validated. Performed By: #### M AT21 ####[facility] LABCLIA [id number] [place] [address] director of retail analytics name Nom (Provider) Comment Normal [facility] Comment on above: Order Comment: Speci men Type: BLOOD SPECIMENOrdering Facility: [facility] Address: [address] [place] [address] Result Comment: This specimen showed an expected representation of chromosome 21, 18 and 13 material. Clinical correlation is suggested. Comment Ha Hill MD, PhD, Director, [employer] Performed By: #### M AT21 ####[facility] LABCLIA [id number] [place] [address] LIMITATIONS OF THE TEST Comment Normal [facility] Comment on above: Order Comment: Speci men Type: BLOOD SPECIMENOrdering Facility: [facility] Address: [address], [place] [address] Result Comment: Janusz nascimetno the results of these tests are highly reliable, discordant results, including inaccurate sex prediction, may occur due to placental, maternal, or mosaicism or neoplasm; vanishing twin; prior maternal organ transplant; or other causes. These tests are screening tests and not diagnostic; they do not replace the accuracy and precision of diagnosis with CVS or amniocentesis. A patient with a positive test result should be referred for genetic counseling and offered invasive diagnosis for confirmation of test results.[5] The results of this testing, including the benefits and limitations, should be discussed with a qualified healthcare provider. management decisions, including termination of the , should not be based on the results of these tests alone. The healthcare provider is responsible for the use of this information in the management of their patient. Sex chromosomal aneuploidies are not reportable for known multiple gestations. A negative result does not ensure an unaffected nor does it exclude the possibility of other chromosomal abnormalities or defects which are not a part of these tests. An uninformative result may be reported, the causes of which may include, but are not limited to, insufficient sequencing coverage, noise or artifacts in the region, amplification or sequencing bias, or insufficient fraction. These tests are not intended to identify pregnancies at risk for neural tube defects or ventral wall defects. Testing for whole chromosome abnormalities (including sex chromosomes) and for subchromosomal abnormalities could lead to the potential discovery of both and maternal genomic abnormalities that could have major, minor, or no, clinical significance. Evaluating the significance of a positive or a non-reportable result may involve both invasive testing and additional studies on the mother. Such investigations may lead to a diagnosis of maternal chromosomal or subchromosomal abnormalities, which on occasion may be associated with benign or malignant maternal neoplasms. These tests may not accurately identify triploidy, balanced rearrangements, or the precise location of subchromosomal duplications or deletions; these may be detected by diagnosis with CVS or amniocentesis. The ability to report results may be impacted by maternal BMI, maternal weight, maternal systemic lupus erythematosus (SLE) and/or by certain pharmaceutical agents such as low molecular weight heparin (for example: Lovenox(R), Xaparin(R), Clexane(R) and Fragmin(R)). Performed By: #### M AT21 ####[facility] LABCLIA [id number] [place] [address] Monosomy X risk Dosage of chromosome-specific cfDNA Ql (Plasma cell-free+WBC DNA) [Interp] Not detected Normal [facility] Comment on above: Order Comment: Speci men Type: BLOOD SPECIMENOrdering Facility: [facility] Address: [address] [place] [address] Performed By: #### M AT21 ####[facility] LABCLIA [id number] [place] [id number] NEGATIVE PREDICTIVE VALUE Note Normal [facility] Comment on above: Order Comment: Speci men Type: BLOOD SPECIMENOrdering Facility: [facility] Address: [address] [place] [address] Result Comment: The Negative Predictive Value (NPV) for trisomy 21, 18, and 13 is greater than 99%. The NPV for SCA and ESS cannot be calculated as SCA and ESS are only reported when an abnormality is detected. Performed By: #### M AT21 ####[facility] LABCLIA [id number] [place] [id number] NOTE Comment Normal [facility] Comment on above: Order Comment: Speci men Type: BLOOD SPECIMENOrdering Facility: [facility] Address: [address] [place] [address] Result Comment: See Notes [employer] is a subsidiary of [employer], using the brand [employer]. This test was developed and its performance characteristics determined by [employer]. It has not been cleared or approved by the Food and Drug Administration. This laboratory is certified under the Clinical Laboratory Improvement Amendments (CLIA) as qualified to perform high complexity clinical laboratory testing and accredited by the [employer] (CAP). If there is future clinical need for adding MaterniT GENOME testing, this specimen will be available until term. [facility] samples will not be retained beyond 60 days. [facility] patients will have to send a new sample for re-sequencing ([facility] Test Code: [id number]). Performed By: #### M AT21 ####[facility] LABIA [id number] [place] [address] PERFORMANCE CHARACTERISTICS Note Normal [facility] Comment on above: Order Comment: Talia parsons Type: BLOOD SPECIMENOrdering Facility: [facility] Address: [address], [place] [address] Result Comment: ! Sex ! Accuracy: 99.4% ! ! ! ! Region (associated syndrome) ! Est. Sens# ! Est. Spec ! ! ! ! Trisomy 21 (Down Syndrome) ! 99.1% ! 99.9% ! ! ! ! Trisomy 18 (Evans Syndrome) ! >99.9% ! 99.6% ! ! ! ! Trisomy 13 (Patau Syndrome) ! 91.7% ! 99.7% ! ! ! ! Sex Chromosome Aneuploidies## ! 96.2% ! 99.7% ! ! ! * As reported in ISCA database nstd37 [https://www.ncbi.nlm.nih.gov/dbvar/studies/nstd37/ ] # Estimated Sensitivity. Sensitivity estimated across the observed size distribution of each syndrome [per ISCA database nstd37] and across the range of fractions observed in routine clinical NIPT. Actual sensitivity can also be influenced by other factors such as the size of the event, total sequence counts, amplification bias, or sequence bias. ## Hernández gestation only. Performed By: #### M AT21 ####[employer] LABBootstrap SoftwareIA [id number] [place] [address] POSITIVE PREDICTIVE VALUE N/A Normal [facility] Comment on above: Order Comment: Speci jaqueline Type: BLOOD SPECIMENOrdering Facility: [facility] Address: [address] [place] [address] Performed By: #### M AT21 ####[employer] LABCLIA [id number] [place] [address] Reference Lab Test Method Comment Normal [facility] Comment on above: Order Comment: Speci jaqueline Type: BLOOD SPECIMENOrdering Facility: [facility] Address: [address] [place] [address] Result Comment: See Notes Circulating cell-free DNA was purified from the plasma component of maternal blood. The extracted DNA was then converted into a genomic DNA library for aneuploidy analysis of chromosomes 21, 18, and 13 via next generation sequencing.[1] Optional findings based on the test order include sex chromosome aneuploidy (SCA)[2], and enhanced sequencing series (ESS)[3], which will only be reported on as an additional finding when an abnormality is detected. SCA testing includes information on X and Y representation, while ESS testing includes deletions in selected regions (22q, 15q, 11q, 8q, 5p, 4p, 1p) and trisomy of chromosomes 16 and 22. Performed By: #### M AT21 ####[facility] [employer] LABCLIA [id number] [place] [address] Sex Dosage of chromosome-specific cfDNA Nom (cfDNA) Comment Normal [facility] Comment on above: Order Comment: Speci men Type: BLOOD SPECIMENOrdering Facility: [facility] Address: [address] [place] [address] Result Comment: Cons istent with Male Performed By: #### M AT21 ####[facility] LABCLIA [id number] [place] [address] Test performance information Jared (Unsp spec) Comment Normal [facility] Comment on above: Order Comment: Speci men Type: BLOOD SPECIMENOrdering Facility: [facility] Address: [address] [place] [address] Result Comment: The performance characteristics of the MaterniT(R) 21 PLUS laboratory-developed test (LDT) have been determined in a clinical validation study with women at increased risk for chromosomal aneuploidy.[1-4] Performed By: #### M AT21 ####[facility] LABCLIA [id number] [place] [address] Trisomy 13 risk Dosage of chromosome-specific cfDNA Ql (cfDNA) [Interp] Negative Normal [facility] Comment on above: Order Comment: Speci men Type: BLOOD SPECIMENOrdering Facility: [facility] Address: [address] [place] [address] Performed By: #### M AT21 ####[facility] LABCLIA [id number] [place] [address] Trisomy 18 risk Dosage of chromosome-specific cfDNA Ql (Plasma cell-free+WBC DNA) [Interp] Negative Normal [facility] Comment on above: Order Comment: Speci men Type: BLOOD SPECIMENOrdering Facility: [facility] Address: [address] [place] [address] Performed By: #### M AT21 ####[facility] LABCLIA [id number] [place] [address] CNOVon 03-01-2024 CNOV Office Visit (FAMPWS) KIMBERLY JEONG ([id number]) 1995 F Date Time Provider Department 03/01/24 2:00 PM SURJIT AGUIRRE FAMPWS During your visit today, we recorded the following information about you: Pulse Respiration Blood pressure Weight 98/minute 18/minute 118/70 78.4 kg Surjit Aguirre MD 03/01/2024 3:48 PM Signed Chief Complaint Patient presents with: jaw pain: Left side HPI Kimberly Jeong is a 28 year old female who presents here today for Jaw pain. Pt c/o left side jaw pain x 2 weeks, constant dull ache. She states that she opened her mouth and felt a pop, she feels popping when she yawns. Difficulty opening mouth up wide enough for fork. She thought maybe she was grinding her teeth at night. She has a broken tooth but states that he pain feels further back from the tooth. She has been taking Tylenol and Ibuprofen. No heat or ice used. Past medical history, appointments, medications, allergies reviewed. Previous Medical History PAST MEDICAL HISTORY Diagnosis Date Anemia complicating , second trimester 07/04/2020 Contracted pelvis during depression anxiety fracture 11 years old right wrist-fell out of bunk bed H/O delivery, currently Hyperemesis gravidarum ER: 01/29/2024 Injury of right ankle 09/10/2023 Myocarditis ([facility]) age 18 months 2006 cleared for [address] Lay--maribel age 18 yrs PMH - PAST MEDICAL HISTORY OF 06/2007 Right wrist fracture PMH - PAST MEDICAL HISTORY OF normal color vision depression Recurrent major depressive disorder, in partial remission (HCC) 11/03/2020 Sprain of right ankle 09/10/2023 Sprain of unspecified ligament of right ankle, initial encounter 09/10/2023 Unspecified injury of right ankle, subsequent encounter 09/10/2023 Previous Surgical History PAST SURGICAL HISTORY Procedure Laterality Date DELIVERY ONLY 01/05/2022 [facility]CS PAST SURGICAL HISTORY OF wisdom teeth Family History FAMILY HISTORY Problem Relation Age of Onset other (Celiac disease) Mother Hypertension Father No Known Problems Sister No Known Problems Sister other (other) Brother No Known Problems Brother No Known Problems Brother No Known Problems Brother Diabetes Maternal Grandmother Breast Cancer Maternal Grandmother No Known Problems Maternal Grandfather Hypertension Paternal Grandmother Colon Cancer Paternal Grandmother Hyperlipidemia Paternal Grandmother Cancer Paternal Grandfather Bladder Cancer No Known Problems Son Patient Allergies ALLERGIES Allergen Reactions Pollen Other: See Comments Nasal congestion and drainage Current Medications Current Outpatient Medications on File Prior to Visit Medication Sig multivitamin (CALIXTO ) 65 mg iron- 1 mg tab once daily. famotidine (PEPCID) 20 mg tablet two times a day. pyridoxine, vitamin B6, (VITAMIN B6) 50 mg tablet Take 1 tablet by mouth every 12 hours. (Patient not taking: Reported on 02/17/2024) PUMP SET MISC Zofran aspirin 81 mg cap Take 81 mg by mouth once daily. Starting at 12 weeks. promethazine HCl (PHENERGAN ORAL) Take 25 mg by mouth every 6 hours. ondansetron (ZOFRAN) 4 mg tablet Take 1 tablet by mouth every 8 hours as needed for nausea/vomiting. doxylamine-pyridoxin e, vit B6, 10-10 mg TbEC Take 2 tabs at night. If symptoms persist after 2 days add one tab in the morning. If symptoms still persist after 4 days add a tab mid-day (Patient not taking: Reported on 02/03/2024) VRAYLAR 3 mg capsule Take 3 mg by mouth once daily. traZODone (DESYREL) 50 mg tablet hydrOXYzine pamoate (VISTARIL) 50 mg capsule Take 2 capsules by mouth twice daily. (Patient not taking: Reported on 02/03/2024) DULoxetine (CYMBALTA) 60 mg capsule Take 60 mg by mouth once daily. No current facility-administere d medications on file prior to visit. Social History Social History Tobacco Use Smoking status: Never Smokeless tobacco: Never Vaping Use Vaping Use: Never used Substance Use Topics Alcohol use: Not Currently Drug use: No EXAM: BP 118/70 Pulse 98 Resp 18 Wt 78.4 kg (172 lb 12.8 oz) LMP 12/07/2023 (Exact Date) BMI 31.61 kg/m? General Appearance: Well appearing, alert, in no acute distress, well-hydrated, well nourished.. Left jaw: mild tenderness TMJ with palpable thunk. Health Maintenance List Covid-19 Vaccine( season) due on 08/04/2024 Influenza Vaccine(1) due on 04/18/2024 RSV Vaccine(1 - Risk 1-dose series) due on 07/18/2024 Cervical Cancer Screening due on 02/03/2027 DTaP,Tdap,Td Vaccine(10 - Td or Tdap) due on 11/14/2031 Hepatitis B Vaccine Completed HPV Vaccine Completed Hepatitis C Screening Completed HIV Screening Completed Data reviewed none ASSESSMENT/PLAN: 1. TMJ dysfunction - ICD9: 524.60, ICD10: M26.609 Will use short term (more content not included)... Normal [facility] Agnieszka 02-12-2024 VICK Telephone (OBGYWM) KIMBERLY JEONG ([id number]) 1995 F Date Time Provider Department 02/12/24 DANII WEINBERG During your visit today, we recorded the following information about you: Byron Strong, ASHLEE 02/12/2024 12:00 PM Signed Received fax form for [facility] for plan of care for hyperemesis. Signature is needed from Danii Carter. Form on her desk for signature Danii Weinberg APRN.EMRE 02/13/2024 1:13 PM Signed Signed and to nurse desk. Please call patient to see how she's doing. Danii Weinberg APRN.Bibiana Munoz RN 02/13/2024 1:23 PM Signed Forms faxed back to [facility]. Called and spoke with patient. She is feeling better with the pump. Able to eat and keeping food/fluids down. Bibiana Hernandes RN Allergies As of Date: 02/12/2024 Noted Allergy Reaction POLLEN 12/05/2011 14 - Other: See Comments Comments: Nasal congestion and drainage Date Reviewed: 02/04/2024 Reviewed by: Danii Weinberg APRN.SAMPLE MOUNTER - Fully Assessed Reason for Visit: Orders [681] Prescriptions as of 02/17/2024 - multivitamin (CALIXTO ) 65 mg iron- 1 mg tab once daily. - famotidine (PEPCID) 20 mg tablet two times a day. - pyridoxine, vitamin B6, (VITAMIN B6) 50 mg tablet Take 1 tablet by mouth every 12 hours. - PUMP SET MISC Zofran - aspirin 81 mg cap Take 81 mg by mouth once daily. Starting at 12 weeks. - promethazine HCl (PHENERGAN ORAL) Take 25 mg by mouth every 6 hours. - ondansetron (ZOFRAN) 4 mg tablet Take 1 tablet by mouth every 8 hours as needed for nausea/vomiting. - doxylamine-pyridoxin e, vit B6, 10-10 mg TbEC Take 2 tabs at night. If symptoms persist after 2 days add one tab in the morning. If symptoms still persist after 4 days add a tab mid-day - VRAYLAR 3 mg capsule Take 3 mg by mouth once daily. - traZODone (DESYREL) 50 mg tablet - hydrOXYzine pamoate (VISTARIL) 50 mg capsule Take 2 capsules by mouth twice daily. - DULoxetine (CYMBALTA) 60 mg capsule Take 60 mg by mouth once daily. Problem List As Of Date 02/12/2024 Noted Resolved Pain in limb [M79.609] 01/22/2010 02/29/2020 Acute pain of left shoulder [M25.512] 09/17/2017 02/29/2020 History of viral myocarditis [Z86.79] 02/21/2020 Nausea and vomiting in [O21.9] 02/21/2020 08/22/2020 Depression affecting [O99.340, F32.A] 02/21/2020 UTI (urinary tract infection) in , ant*02/25/2020 08/22/2020 Tetrahydrocannabinol (THC) use disorder, mild, *02/29/2020 Encounter for supervision of normal first pregn*06/06/2020 08/22/2020 Elevated glucose [R73.09] 07/04/2020 08/22/2020 Anemia complicating , second trimester*07/04/2020 08/22/2020 Recurrent major depressive disorder, in partial*11/03/2020 02/04/2024 H/O delivery, currently [O09.8*06/12/2021 Family history of spina bifida [Z82.79] 06/12/2021 Encounter for supervision of high risk pregnanc*10/30/2021 Unspecified injury of right ankle, subsequent e*09/10/2023 02/04/2024 Sprain of unspecified ligament of right ankle, *09/10/2023 02/04/2024 Injury of right ankle [S99.911A] 09/10/2023 02/04/2024 Sprain of right ankle [S93.401A] 09/10/2023 02/04/2024 Hyperemesis affecting , antepartum [O2*02/04/2024 Obesity affecting in first trimester *02/04/2024 History of section [Z98.891] 02/04/2024 Anxiety during [O99.340, F41.9] 02/04/2024 Encounter Status:Closed by BYRON STRONG on 02/17/24 [facility] Tele[facility] (OCTAVIO) KIMBERLY JEONG ([id number]) 1995 F Date Time Provider Department 02/09/24 DANII WEINBERG During your visit today, we recorded the following information about you: Bibiana Hernandes, ASHLEE 02/09/2024 9:02 AM Signed [facility]d [facility] nurse called to report that there was an error in the amount of the Zofran loading dose. States it may have been a dispatch supervisor error in her chart. She gave her 2 MG Zofran loading dose instead of 3 MG. Patient did well with the 2 MG dose. FYI only. Bibiana Hernandes RN Allergies As of Date: 02/09/2024 Noted Allergy Reaction POLLEN 12/05/2011 14 - Other: See Comments Comments: Nasal congestion and drainage Date Reviewed: 02/04/2024 Reviewed by: Danii Weinberg APRN.SAMPLE MOUNTER - Fully Assessed Reason for Visit: Patient Update [1234] Cmt: [facility] Prescriptions as of 02/09/2024 - aspirin 81 mg cap Take 81 mg by mouth once daily. Starting at 12 weeks. - promethazine HCl (PHENERGAN ORAL) Take 25 mg by mouth every 6 hours. - ondansetron (ZOFRAN) 4 mg tablet Take 1 tablet by mouth every 8 hours as needed for nausea/vomiting. - doxylamine-pyridoxin e, vit B6, 10-10 mg TbEC Take 2 tabs at night. If symptoms persist after 2 days add one tab in the morning. If symptoms still persist after 4 days add a tab mid-day - VRAYLAR 3 mg capsule Take 1 capsule by mouth once daily. - traZODone (DESYREL) 50 mg tablet - hydrOXYzine pamoate (VISTARIL) 50 mg capsule Take 2 capsules by mouth twice daily. - DULoxetine (CYMBALTA) 60 mg capsule Take 60 mg by mouth once daily. Problem List As Of Date 02/09/2024 Noted Resolved Pain in limb [M79.609] 01/22/2010 02/29/2020 Acute pain of left shoulder [M25.512] 09/17/2017 02/29/2020 History of viral myocarditis [Z86.79] 02/21/2020 Nausea and vomiting in [O21.9] 02/21/2020 08/22/2020 Depression affecting [O99.340, F32.A] 02/21/2020 UTI (urinary tract infection) in , ant*02/25/2020 08/22/2020 Tetrahydrocannabinol (THC) use disorder, mild, *02/29/2020 Encounter for supervision of normal first pregn*06/06/2020 08/22/2020 Elevated glucose [R73.09] 07/04/2020 08/22/2020 Anemia complicating , second trimester*07/04/2020 08/22/2020 Recurrent major depressive disorder, in partial*11/03/2020 02/04/2024 H/O delivery, currently [O09.8*06/12/2021 Family history of spina bifida [Z82.79] 06/12/2021 Encounter for supervision of high risk pregnanc*10/30/2021 Unspecified injury of right ankle, subsequent e*09/10/2023 02/04/2024 Sprain of unspecified ligament of right ankle, *09/10/2023 02/04/2024 Injury of right ankle [S99.911A] 09/10/2023 02/04/2024 Sprain of right ankle [S93.401A] 09/10/2023 02/04/2024 Hyperemesis affecting , antepartum [O2*02/04/2024 Obesity affecting in first trimester *02/04/2024 History of section [Z98.891] 02/04/2024 Anxiety during [O99.340, F41.9] 02/04/2024 Encounter Status:Closed by BIBIANA HERNANDES on 02/09/24 Normal [facility] Bacteria Ur Culton Bacteria identified Cx Nom (U) ORGANISM ID: 1 10,000 -<50,000 CFU/ml Normal urogenital jeanne Normal [facility] Comment on above: Performed By: #### 6 30-4 ####[facility] LABCLIA [id number] [place] [address] [place] C. trachomatis+N. gonorrhoea e DNA MARGARETTE+probe Ql (Unsp spec)on 02-04-2024 C. trachomatis rRNA MARGARETTE+probe Ql (Unsp spec) Negative Normal Negative for Chlamydia trachomatis by amplificaton [facility] Comment on above: Order Comment: Speci men Type: SWABOrdering Facility: [facility] Address: [address] [place] [address] Performed By: #### 3 6902-5 ####[facility] LABCLIA [id number] [place] [address] [place] N. gonorrhoeae rRNA MARGARETTE+probe Ql (Unsp spec) Negative Normal Negative for Neisseria gonorrhoeae by amplification [facility] Comment on above: Order Comment: Speci men Type: SWABOrdering Facility: [facility] Address: [address] [place] [address] Performed By: #### 3 6902-5 ####[facility] LABCLIA [id number] [place] [address] [place] CARRIER SCREEN, STANDARDon 0 02-04-2024 CARRIER SCREEN RESULTS View results in Scanned Documents link when available. Normal [facility] Comment on above: Order Comment: Speci men Type: BLOOD SPECIMENOrdering Facility: [facility] Address: [address] [place] [address] Performed By: #### C RRSCN ####MYRIADCLIA [id number] [place] [address] CBC panel Auto (Bld)on 02-03 Erythrocyte distribution width (RBC) [Ratio] 16.9 % High 11.5 - 15.0 % [facility] Hematocrit (Bld) [Volume fraction] 36.0 % 36.0 - 46.0 % [facility] Hemoglobin (Bld) [Mass/Vol] 11.9 g/dL 11.5 - 15.5 g/dL [facility] Interpretation and review of laboratory results Abnormal [facility] MCH (RBC) [Entitic mass] 24.6 pg Low 26.0 - 34.0 pg [facility] MCHC (RBC) [Mass/Vol] 33.1 g/dL 30.5 - 36.0 g/ dL [facility] MCV (RBC) [Entitic vol] 74.5 fL Low 80.0 - 100.0 fL [facility] Nucleated RBC (Bld) [#/Vol] NINF [facility] Platelet mean volume (Bld) [Entitic vol] 10.5 fL 9.0 - 12.7 fL [facility] Platelets (Bld) [#/Vol] 334 10*3/uL [facility] RBC (Bld) [#/Vol] 4.83 10*6/uL 3.90 - 5.20 m/uL [facility] WBC (Bld) [#/Vol] 10.33 10*3/uL [facility] Erythrocyte distribution width (RBC) [Ratio] 16.9 % High 11.5-15.0 [facility] Comment on above: Order Comment: Speci men Type: BLOOD SPECIMENOrdering Facility: [facility] Address: [address] [place] [address] Performed By: #### 5 8410-2 ####[facility] CENTERDEBHunter [id number] [place] [address] [place] Hematocrit (Bld) [Volume fraction] 36.0 % Normal 36.0-46.0 [facility] Comment on above: Order Comment: Speci men Type: BLOOD SPECIMENOrdering Facility: [facility] Address: [address] [place] [address] Performed By: #### 5 8410-2 ####[facility] CENTERKEISHA [id number] [address] [place] Hemoglobin (Bld) [Mass/Vol] 11.9 g/dL Normal 11.5-15.5 [facility] Comment on above: Order Comment: Speci men Type: BLOOD SPECIMENOrdering Facility: [facility] Address: [address] [place] [address] Performed By: #### 5 8410-2 ####[facility]ENTERKEISHA [id number] [place] [address] [place] MCH (RBC) [Entitic mass] 24.6 pg Low 26.0-34.0 [facility] Comment on above: Order Comment: Speci men Type: BLOOD SPECIMENOrdering Facility: [facility] Address: [address] [place] [address] Performed By: #### 5 8410-2 ####[facility] MILLWNCLIA [id number] [place] [address] [place] MCHC (RBC) [Mass/Vol] 33.1 g/dL Normal 30.5-36.0 [facility] Comment on above: Order Comment: Speci men Type: BLOOD SPECIMENOrdering Facility: [facility] Address: [address] [place] [address] Performed By: #### 5 8410-2 ####[facility]ENTERNCLIA [id number] [place] [address] [place] MCV (RBC) [Entitic vol] 74.5 fL Low 80.0-100.0 [facility] Comment on above: Order Comment: Speci men Type: BLOOD SPECIMENOrdering Facility: [facility] Address: [address] [place] [address] Performed By: #### 5 8410-2 ####[facility] [id number] [place] [address] [place] Nucleated RBC (Bld) [#/Vol] 10*3/uL Normal <0.01 [facility] Comment on above: Order Comment: Speci men Type: BLOOD SPECIMENOrdering Facility: [facility] Address: [address] [place] [address] Performed By: #### 5 8410-2 ####[facility] [id number] [place] [address] [place] Platelet mean volume (Bld) [Entitic vol] 10.5 fL Normal 9.0-12.7 [facility] Comment on above: Order Comment: Speci men Type: BLOOD SPECIMENOrdering Facility: [facility] Address: [address] [place] [address] Performed By: #### 5 8410-2 ####[facility] [id number] [place] [address] [place] Platelets (Bld) [#/Vol] 334 10*3/uL Normal 150-400 [facility] Comment on above: Order Comment: Speci men Type: BLOOD SPECIMENOrdering Facility: [facility] Address: [address] [place] [address] Performed By: #### 5 8410-2 ####[facility]ENTERNCLIA [id number] [place] [address] [place] RBC (Bld) [#/Vol] 4.83 10*6/uL Normal 3.90-5.20 [facility] Comment on above: Order Comment: Speci men Type: BLOOD SPECIMENOrdering Facility: [facility] Address: [address] [place] [address] Performed By: #### 5 8410-2 ####[facility]ENTERNCLIA [id number] [place] [address] [place] WBC (Bld) [#/Vol] 10.33 10*3/uL Normal 3.70-11.00 [facility] Comment on above: Order Comment: Speci men Type: BLOOD SPECIMENOrdering Facility: [facility] Address: [address] [place] [address] Performed By: #### 5 8410-2 ####[facility]ENTERNCLIA [id number] [place] [address] [place] CNPJayla 02-04-2024 CNPN Telephone (OBGYWM) KIMBERLY JEONG ([id number]) 1995 F Date Time Provider Department 02/04/24 DANII WEINBERG During your visit today, we recorded the following information about you: Danii Weinberg APRN.CNP 02/04/2024 2:37 PM Signed Patient needs Zofran pump. Form filled out and to nurses' desk. Also recommend IV fluids on Friday at [facility]. Please assist in scheduling. WILLI Streeter Jennifer, RN 02/04/2024 5:01 PM Signed Orders were faxed to [facility] Outpatient infusion. Please check with patient or hospital that she has been scheduled. Bibiana Hernandes RN Allergies As of Date: 02/04/2024 Noted Allergy Reaction POLLEN 12/05/2011 14 - Other: See Comments Comments: Nasal congestion and drainage Date Reviewed: 02/04/2024 Reviewed by: Danii Weinberg APRN.CNP - Fully Assessed Reason for Visit: Orders [681] Prescriptions as of 02/05/2024 - aspirin 81 mg cap Take 81 mg by mouth once daily. Starting at 12 weeks. - promethazine HCl (PHENERGAN ORAL) Take 25 mg by mouth every 6 hours. - ondansetron (ZOFRAN) 4 mg tablet Take 1 tablet by mouth every 8 hours as needed for nausea/vomiting. - doxylamine-pyridoxin e, vit B6, 10-10 mg TbEC Take 2 tabs at night. If symptoms persist after 2 days add one tab in the morning. If symptoms still persist after 4 days add a tab mid-day - VRAYLAR 3 mg capsule Take 1 capsule by mouth once daily. - traZODone (DESYREL) 50 mg tablet - hydrOXYzine pamoate (VISTARIL) 50 mg capsule Take 2 capsules by mouth twice daily. - DULoxetine (CYMBALTA) 60 mg capsule Take 60 mg by mouth once daily. 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] 02/21/2020 Nausea and vomiting in [O21.9] 02/21/2020 08/22/2020 Depression affecting [O99.340, F32.A] 02/21/2020 UTI (urinary tract infection) in , ant*02/25/2020 08/22/2020 Tetrahydrocannabinol (THC) use disorder, mild, *02/29/2020 Encounter for supervision of normal first pregn*06/06/2020 08/22/2020 Elevated glucose [R73.09] 07/04/2020 08/22/2020 Anemia complicating , second trimester*07/04/2020 08/22/2020 Recurrent major depressive disorder, in partial*11/03/2020 02/04/2024 H/O delivery, currently [O09.8*06/12/2021 Family history of spina bifida [Z82.79] 06/12/2021 Encounter for supervision of high risk pregnanc*10/30/2021 Unspecified injury of right ankle, subsequent e*09/10/2023 02/04/2024 Sprain of unspecified ligament of right ankle, *09/10/2023 02/04/2024 Injury of right ankle [S99.911A] 09/10/2023 02/04/2024 Sprain of right ankle [S93.401A] 09/10/2023 02/04/2024 Hyperemesis affecting , antepartum [O2*02/04/2024 Obesity affecting in first trimester *02/04/2024 History of section [Z98.891] 02/04/2024 Anxiety during [O99.340, F41.9] 02/04/2024 Encounter Status:Closed by MICHAELLE TOLMINSON on 02/05/24 [facility] KIMBER[facility] JE[facility] ([id number]) 1995 F Date Time Provider Department 02/04/24 HISTORICAL OBGWSR During your visit today, we recorded the following information about you: Damaris Horn Charan 02/04/2024 3:20 PM Signed Referral to [facility]. Sent to [place] team to assist with scheduling. Allergies As of Date: 02/04/2024 Noted Allergy Reaction POLLEN 12/05/2011 14 - Other: See Comments Comments: Nasal congestion and drainage Date Reviewed: 02/04/2024 Reviewed by: Danii Weinberg APRN.SAMPLE MOUNTER - Fully Assessed Prescriptions as of 02/04/2024 - aspirin 81 mg cap Take 81 mg by mouth once daily. Starting at 12 weeks. - promethazine HCl (PHENERGAN ORAL) Take 25 mg by mouth every 6 hours. - ondansetron (ZOFRAN) 4 mg tablet Take 1 tablet by mouth every 8 hours as needed for nausea/vomiting. - doxylamine-pyridoxin e, vit B6, 10-10 mg TbEC Take 2 tabs at night. If symptoms persist after 2 days add one tab in the morning. If symptoms still persist after 4 days add a tab mid-day - VRAYLAR 3 mg capsule Take 1 capsule by mouth once daily. - traZODone (DESYREL) 50 mg tablet - hydrOXYzine pamoate (VISTARIL) 50 mg capsule Take 2 capsules by mouth twice daily. - DULoxetine (CYMBALTA) 60 mg capsule Take 60 mg by mouth once daily. 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] 02/21/2020 Nausea and vomiting in [O21.9] 02/21/2020 08/22/2020 Depression affecting [O99.340, F32.A] 02/21/2020 UTI (urinary tract infection) in , ant*02/25/2020 08/22/2020 Tetrahydrocannabinol (THC) use disorder, mild, *02/29/2020 Encounter for supervision of normal first pregn*06/06/2020 08/22/2020 Elevated glucose [R73.09] 07/04/2020 08/22/2020 Anemia complicating , second trimester*07/04/2020 08/22/2020 Recurrent major depressive disorder, in partial*11/03/2020 02/04/2024 H/O delivery, currently [O09.8*06/12/2021 Family history of spina bifida [Z82.79] 06/12/2021 Encounter for supervision of high risk pregnanc*10/30/2021 Unspecified injury of right ankle, subsequent e*09/10/2023 02/04/2024 Sprain of unspecified ligament of right ankle, *09/10/2023 02/04/2024 Injury of right ankle [S99.911A] 09/10/2023 02/04/2024 Sprain of right ankle [S93.401A] 09/10/2023 02/04/2024 Hyperemesis affecting , antepartum [O2*02/04/2024 Obesity affecting in first trimester *02/04/2024 History of section [Z98.891] 02/04/2024 Anxiety during [O99.340, F41.9] 02/04/2024 Encounter Status:Closed by DAMARIS HORN on 02/04/24 Normal [facility] Comprehensive metabolic 2000 panelOrdered By: Jeaneth Hallman on 02-04-2024 Albumin [Mass/Vol] 3.5 g/dL Low 3.9 - 4.9 g/dL [facility] ALP [Catalytic activity/Vol] 58 U/L 34 - 123 U/L [facility] ALT [Catalytic activity/Vol] 17 U/L 7 - 38 U/L [facility] Anion gap [Moles/Vol] 11 mmol/L 8 - 15 mmol/L [facility] AST [Catalytic activity/Vol] 14 U/L 13 - 35 U/L [facility] Bilirubin [Mass/Vol] 0.2 mg/dL 0.2 - 1.3 mg/dL [facility] Calcium [Mass/Vol] 9.4 mg/dL 8.5 - 10.2 mg/dL [facility] Chloride [Moles/Vol] 103 mmol/L 98 - 107 mmol/L [facility] CO2 [Moles/Vol] 21 mmol/L Low 22 - 30 mmol/L [facility] Creatinine [Mass/Vol] 0.63 mg/dL 0.58 - 0.96 mg/dL [facility] GFR/1.73 sq M.predicted among non-blacks MDRD (S/P/Bld) [Vol rate/Area] 125 mL/min/{1.73_m2} - PINF [facility] Comment on above: Estimated Glomerular Filtration Rate (eGFR) is calculated using the 2020 CKD-EPI creatinine equation. This equation utilizes serum creatinine, sex, and age as parameters. The creatinine assay has traceable calibration to isotope dilution-mass spectrometry. Refer to KDIGO guidelines for clinical interpretation. In patients with unstable renal function, e.g. those with acute kidney injury, the eGFR may not accurately reflect actual GFR. Glucose [Mass/Vol] 87 mg/dL 74 - 99 mg/dL [facility] Comment on above: The [place] Diab[employer] Association (ADA) provides guidance for cutoff values for fasting glucose and random glucose. The ADA defines fasting as no caloric intake for at least 8 hours. Fasting plasma glucose results between 100 to 125 mg/dL indicate increased risk for diabetes (prediabetes). Fasting plasma glucose results greater than or equal to 126 mg/dL meet the criteria for diagnosis of diabetes. In the absence of unequivocal hyperglycemia, results should be confirmed by repeat testing. In a patient with classic symptoms of hyperglycemia or hyperglycemic crisis, random plasma glucose results greater than or equal to 200 mg/dL meet the criteria for diagnosis of diabetes. Reference: Standards of Medical Care in Diabetes 2016, [place] [employer]. Diabetes Care. 2016.39(Suppl 1). Interpretation and review of laboratory results Abnormal [facility] Potassium [Moles/Vol] 3.6 mmol/L Low 3.7 - 5.1 mmol /L [facility] Protein [Mass/Vol] 6.2 g/dL Low 6.3 - 8.0 g/dL [facility] Sodium [Moles/Vol] 135 mmol/L Low 136 - 144 mmol/L [facility] Urea nitrogen [Mass/Vol] 6 mg/dL Low 7 - 21 mg/dL [facility] Comprehensive metabolic 2000 panelon 02-04-2024 Albumin [Mass/Vol] 3.5 g/dL Low 3.9-4.9 [facility] Comment on above: Order Comment: Speci men Type: BLOOD SPECIMENOrdering Facility: [facility] Address: [address] [place] [address] Performed By: #### 2 4323-8 ####[facility] MILLTOWNCLIA [id number] [place] [address] [place] ALP [Catalytic activity/Vol] 58 U/L Normal 34-123 [facility] Comment on above: Order Comment: Speci men Type: BLOOD SPECIMENOrdering Facility: [facility] Address: [address] [place] [address] Performed By: #### 2 4323-8 ####[facility] MILLTOWNCLIA [id number] [place] [address] [place] ALT [Catalytic activity/Vol] 17 U/L Normal 7-38 [facility] Comment on above: Order Comment: Speci men Type: BLOOD SPECIMENOrdering Facility: [facility] Address: [address] [place] [address] Performed By: #### 2 4323-8 ####[facility] H[facility]PITALWNCLIA [id number] [place] [address] [place] Anion gap [Moles/Vol] 11 mmol/L Normal 8-15 [facility] Comment on above: Order Comment: Speci men Type: BLOOD SPECIMENOrdering Facility: [facility] Address: [address] [place] [address] Performed By: #### 2 4323-8 ####[facility] MILLTOWNCLIA [id number] [place] [address] [place] AST [Catalytic activity/Vol] 14 U/L Normal 13-35 [facility] Comment on above: Order Comment: Speci men Type: BLOOD SPECIMENOrdering Facility: [facility] Address: [address] [place] [address] Performed By: #### 2 4323-8 ####[facility] MILLTOWNCLIA [id number] [place] [address] [place] Bilirubin [Mass/Vol] 0.2 mg/dL Normal 0.2-1.3 [facility] Comment on above: Order Comment: Speci men Type: BLOOD SPECIMENOrdering Facility: [facility] Address: [address] [place] [address] Performed By: #### 2 4323-8 ####[facility] MILLWNCLIA [id number] [place] [address] [place] Calcium [Mass/Vol] 9.4 mg/dL Normal 8.5-10.2 [facility] Comment on above: Order Comment: Speci men Type: BLOOD SPECIMENOrdering Facility: [facility] Address: [address] [place] [address] Performed By: #### 2 4323-8 ####[facility] [id number] [place] [address] [place] Chloride [Moles/Vol] 103 mmol/L Normal 98-107 [facility] Comment on above: Order Comment: Speci men Type: BLOOD SPECIMENOrdering Facility: [facility] Address: [address] [place] [address] Performed By: #### 2 4323-8 ####[facility] [id number] [place] [address] [place] CO2 [Moles/Vol] 21 mmol/L Low 22-30 [facility] Comment on above: Order Comment: Speci men Type: BLOOD SPECIMENOrdering Facility: [facility] Address: [address] [place], [place] [address] Performed By: #### 2 4323-8 ####[facility] [id number] [place] [address] [place] Creatinine [Mass/Vol] 0.63 mg/dL Normal 0.58-0.96 [facility] Comment on above: Order Comment: Speci men Type: BLOOD SPECIMENOrdering Facility: [facility] Address: [address] [place] [address] Performed By: #### 2 4323-8 ####[facility] [id number] [place] [address] [place] Creatinine and Glomerular filtration rate.predicted panel (S/P/Bld) 125 mL/min/1.73m??? Normal >=60 [facility] Comment on above: Order Comment: Speci men Type: BLOOD SPECIMENOrdering Facility: [facility] Address: [address] [place] [address] Result Comment: Danae mated Glomerular Filtration Rate (eGFR) is calculated using the 2020 CKD-EPI creatinine equation. This equation utilizes serum creatinine, sex, and age as parameters. The creatinine assay has traceable calibration to isotope dilution-mass spectrometry. Refer to KDIGO guidelines for clinical interpretation. In patients with unstable renal function, e.g. those with acute kidney injury, the eGFR may not accurately reflect actual GFR. Performed By: #### 2 4323-8 ####[facility] [id number] [place] [address] [place] Glucose [Mass/Vol] 87 mg/dL Normal 74-99 [facility] Comment on above: Order Comment: Talia jaqueline Type: BLOOD SPECIMENOrdering Facility: [facility] Address: [address] [place] [address] Result Comment: The [place] Diabetes Association (ADA) provides guidance for cutoff values for fasting glucose and random glucose. The ADA defines fasting as no caloric intake for at least 8 hours. Fasting plasma glucose results between 100 to 125 mg/dL indicate increased risk for diabetes (prediabetes). Fasting plasma glucose results greater than or equal to 126 mg/dL meet the criteria for diagnosis of diabetes. In the absence of unequivocal hyperglycemia, results should be confirmed by repeat testing. In a patient with classic symptoms of hyperglycemia or hyperglycemic crisis, random plasma glucose results greater than or equal to 200 mg/dL meet the criteria for diagnosis of diabetes. Reference: Standards of Medical Care in Diabetes 2016, [place] Diabetes Association. Diabetes Care. 2016.39(Suppl 1). Performed By: #### 2 4323-8 ####[facility] VENITA MILLTOWNCLIA [id number] [place] [address] [place] Potassium [Moles/Vol] 3.6 mmol/L Low 3.7-5.1 [facility] Comment on above: Order Comment: Speci men Type: BLOOD SPECIMENOrdering Facility: [facility] Address: [address] [place] [address] Performed By: #### 2 4323-8 ####[facility] MILLTOWNCLIA [id number] [place] [address] [place] Protein [Mass/Vol] 6.2 g/dL Low 6.3-8.0 [facility] Comment on above: Order Comment: Speci men Type: BLOOD SPECIMENOrdering Facility: [facility] Address: [address] [place] [address] Performed By: #### 2 4323-8 ####[facility]ENTERDEBLIA [id number] [place] [address] [place] Sodium [Moles/Vol] 135 mmol/L Low 136-144 [facility] Comment on above: Order Comment: Speci men Type: BLOOD SPECIMENOrdering Facility: [facility] Address: [address] [place] [address] Performed By: #### 2 4323-8 ####[facility] MILLWNCLIA [id number] [place] [address] [place] Urea nitrogen [Mass/Vol] 6 mg/dL Low 7-21 [facility] Comment on above: Order Comment: Speci men Type: BLOOD SPECIMENOrdering Facility: [facility] Address: [address] [place] [address] Performed By: #### 2 4323-8 ####[facility] [id number] [place] [address] [place] HBV surface Ag Ql (S)on 01-16 Interpretation and review of laboratory results Normal [facility] HBV surface Ag Ser Qlon 01-16 HBV surface Ag Ql (S) Negative Normal Negative [facility] Comment on above: Order Comment: Speci men Type: BLOOD SPECIMENOrdering Facility: [facility] Address: [address] [place] [address] Performed By: #### 7 3752-8, 5195-3, 62225-0 ####[facility] LABCLIA [id number] [place] [address] [place] HCV Ab Ql (S)on 02-04-2024 Interpretation and review of laboratory results Normal [facility] HCV Ab Ser Qlon 02-04-2024 HCV Ab Ql (S) Negative Normal Negative [facility] Comment on above: Order Comment: Speci men Type: BLOOD SPECIMENOrdering Facility: [facility] Address: [address] [place] [address] Result Comment: The result suggests no evidence of active infection with Hepatitis C virus. Should recent infection be suspected, repeat testing may be considered 4-6 weeks after this draw. Performed By: #### 1 6128-1 ####[facility] LABCLIA [id number] [place] [address] [place] HEPATITIS B SURFACE ANTIGENo n 02-04-2024 HBV surface Ag Ql (S) Negative Negative [facility] HEPATITIS C ANTIBODY IA WITH CONFIRMATIONon 02-04-2024 HCV Ab Ql (S) Negative Negative [facility] Comment on above: The result suggests no evidence of active infection with Hepatitis C virus. Should recent infection be suspected, repeat testing may be considered 4-6 weeks after this draw. HIV 1+2 Ab IA Qlon HIV 1 and 2 Ab IA.rapid Nom (S/P/Bld) [facility] Comment on above: Test not indicated. HIV 1+2 Ab+HIV1 p24 Ag IA Ql Non-Reactive Nonreactive [facility] HIV immunoassay testing algorithm interpretation (S/P/Bld) [Interp] [facility] Comment on above: No evidence of HIV-1 or HIV-2 infection. Should recent infection be suspected, repeat testing may be considered 2-3 weeks after this draw. [place] Rev. Code 3701.243(E): This information has been disclosed to you from confidential records protected from disclosure by state law. You shall make no further disclosure of this information without the specific, written, and informed release of the individual to whom it pertains or as otherwise permitted by state law. A general authorization for the release of medical or other information is not sufficient for the purpose of the release of HIV test results or diagnoses. [facility] HIV 1 and 2 Ab IA.rapid Nom (S/P/Bld) Normal [facility] Comment on above: Order Comment: Speci men Type: BLOOD SPECIMENOrdering Facility: [facility] Address: [address] [place] [address] Result Comment: Test not indicated. Performed By: #### 7 3752-8, 5195-3, 53988-2 ####[facility] [id number] [place] [address] [place] HIV 1+2 Ab+HIV1 p24 Ag IA Ql Non-Reactive Normal Nonreactive [facility] Comment on above: Order Comment: Speci men Type: BLOOD SPECIMENOrdering Facility: [facility] Address: [address] [place] [address] Performed By: #### 7 3752-8, 5195-3, 57319-5 ####[facility] [id number] [place] [address] [place] HIV immunoassay testing algorithm interpretation (S/P/Bld) [Interp] Normal [facility] Comment on above: Order Comment: Speci men Type: BLOOD SPECIMENOrdering Facility: [facility] Address: [address] [place] [address] Result Comment: No e vidence of HIV-1 or HIV-2 infection. Should recent infection be suspected, repeat testing may be considered 2-3 weeks after this draw. [place] Rev. Code 3701.243(E): This information has been disclosed to you from confidential records protected from disclosure by state law. ???You shall make no further disclosure of this information without the specific, written, and informed release of the individual to whom it pertains or as otherwise permitted by state law. A general authorization for the release of medical or other information is not sufficient for the purpose of the release of HIV test results or diagnoses. Performed By: #### 7 3752-8, 5195-3, 53789-9 ####[facility] LABCLIA [id number] [place] [address] [place] HbA1c (Bld)on 02-04-2024 Average glucose Estimated from glycated hemoglobin (Bld) [Mass/Vol] 103 mg/dL Normal [facility] Comment on above: Order Comment: Speci men Type: BLOOD SPECIMENOrdering Facility: [facility] Address: [address] [place] [address] Result Comment: eAG: (Estimated average glucose) is a calculated value from HgbA1c and is patient admitting representative of the average blood glucose level in the last 2-3 month period. Performed By: #### 5 5454-3 ####[facility] LABCLIA [id number] [place] [address] [place] HbA1c (Bld) [Mass fraction] 5.2 % Normal 4.3-5.6 [facility] Comment on above: Order Comment: Speci men Type: BLOOD SPECIMENOrdering Facility: [facility] Address: [address] [place] [address] Result Comment: [place] Diabetes Association guidelines indicate that patients with HgbA1c in the range 5.7-6.4% are at increased risk for development of diabetes, and intervention by lifestyle modification may be beneficial. HgbA1c greater or equal to 6.5% is considered diagnostic of diabetes. Performed By: #### 5 5454-3 ####[facility] LABCLIA [id number] [place] [id number] [place] PAP TESTon 02-04-2024 ADEQUACY Satisfactory for interpretation. Normal [facility] Comment on above: Order Comment: Speci men Type: FLUID SPECIMENOrdering Facility: [facility] Address: [address] [place] [address] Performed By: #### L [id number] ####[facility] LABCLIA [id number] [place] [address] [place] CASE REPORT Normal [facility] Comment on above: Order Comment: Speci men Type: FLUID SPECIMENOrdering Facility: [facility] Address: [address] [place] [address] Result Comment: Gyne cologic Cytology Report Case: [id number] Authorizing Provider: Danii Weinberg APRN.SAMPLE MOUNTER Collected: 02/04/2024 02:19 PM Ordering Location: OB/Gynecology Received: 02/04/2024 04:25 PM First Screen: Asha Sage, CT, ASCP Specimen: Pap Test, ThinPrep, Cervix Performed By: #### L [id number] ####[facility] LABCLIA [id number] [place] [address] [place] CLINICAL HISTORY, CYTOLOGY, WEIGHER BULKER (Indicate Weeks) Normal [facility] Comment on above: Order Comment: Speci men Type: FLUID SPECIMENOrdering Facility: [facility] Address: [address] [place] [address] Performed By: #### L [id number] ####[facility] LABCLIA [id number] [place] [address] [place] FINAL PERFORMING LAB Normal [facility] Comment on above: Order Comment: Speci men Type: FLUID SPECIMENOrdering Facility: [facility] Address: [address] [place] [address] Result Comment: Tech nical component, superintendent pressure screening performed at [facility], [address] [place] [address] CLIA# [id number] Diagnostic interpretation performed at [facility], [address] [place], [place] [id number] CLIA# [id number] Welding Machine Tender: Rafiq Khoury M.D. Performed By: #### L [id number] ####[facility] LABCLIA [id number] [address] [address] [place] HPV REFLEX HPV if Atypical Normal [facility] Comment on above: Order Comment: Speci men Type: FLUID SPECIMENOrdering Facility: [facility] Address: [address] [place] [address] Performed By: #### L [id number] ####[facility] LABCLIA [id number] [place] [id number] [place] INTERPRETATION, CYTOLOGY, WEIGHER BULKER Normal [facility] Comment on above: Order Comment: Speci men Type: FLUID SPECIMENOrdering Facility: [facility] Address: [address] [place] [address] Result Comment: Nega tive for intraepithelial lesion or malignancy. Performed By: #### L [id number] ####[facility] LABCLIA [id number] [place] [address] [place] LMP 12/07/2023 Normal [facility] Comment on above: Order Comment: Speci men Type: FLUID SPECIMENOrdering Facility: [facility] Address: [address] [place] [address] Performed By: #### L [id number] ####[facility] LABCLIA [id number] [address] [address] [place] PAP DISCLAIMER COMMENT The Pap Smear is a screening test for cervical cancer. False negative results occur with all screening tests, emphasizing the need for rescreening at recommended intervals, and clinical correlation. Normal [facility] Comment on above: Order Comment: Speci men Type: FLUID SPECIMENOrdering Facility: [facility] Address: [address] [place] [address] Performed By: #### L [id number] ####[facility] LABCLIA [id number] [place] [id number] [place] PAP SCRUM PROJECT MANAGER COMMENT This specimen has been analyzed by the ThinPrep Imaging System, an automated imaging and review system, which assists the laboratory in evaluating cells on ThinPrep Pap tests. Following automated imaging, selected britton from every slide are reviewed by a superintendent pressure. Normal [facility] Comment on above: Order Comment: Speci men Type: FLUID SPECIMENOrdering Facility: [facility] Address: [address] [place] [address] Performed By: #### L [id number] ####[facility] LABCLIA [id number] [facility] [id number] [place] [id number] [facility] POC RIG OPERATOR ULTRASOUNDon 02-04-20 Indication Viability; confirm cardiac activity Impression Single intrauterine gestational sac, CRL is appropriate for clinical dates, corresponding to RADHA 09/12/23 cardiac activity is visualized Recommendations Follow up for NT scan if desired Method Transvaginal ultrasound examination. View: Adequate visualization Hernández . Number of embryos: 1 Dating LMP on: 12/07/2023 GA by LMP 8 w + 3 d RADHA by LMP: 09/12/2024 Ultrasound examination on: 02/04/2024 GA by U/S based upon: CRL GA by U/S 9 w + 0 d RADHA by U/S: 09/08/2024 Assigned: based on the LMP, selected on 02/04/2024 Assigned GA 8 w + 3 d Assigned RADHA: 09/12/2024 Biometry Standard FHR 170 bpm CRL 22.7 mm 9w 0d >99% Hadlock Assessment Gestational sac: visualized Location: intrauterine Yolk sac: visualized Embryo: visualized CRL 22.7 mm 9w 0d >99% Hadlock Cardiac activity: present FHR 170 bpm General Evaluation Cardiac activity present. FHR 170 bpm Performed By: Danii Weinberg NP Read By: Danii Weinberg NP MATERNAL MEDICINE [facility] Radiology Study observation (narrative) [facility] RUBELLA IGG ANTIBODYon 02-03 Interpretation and review of laboratory results Normal [facility] Rubella IgG, Qual Positive Positive [facility] Comment on above: The result suggests recent or past exposure to Rubella virus or history of Rubella vaccination. Positive result may also be seen due to presence of passively-transferred antibodies. Please correlate with patient's history. [facility] RUBELLA IGG AB, QUAL Positive Normal Positive [facility] Comment on above: Order Comment: Speci men Type: BLOOD SPECIMENOrdering Facility: [facility] Address: [address] [place] [address] Result Comment: The result suggests recent or past exposure to Rubella virus or history of Rubella vaccination. Positive result may also be seen due to presence of passively-transferred antibodies. Please correlate with patient's history. Performed By: #### R [id number] ####[facility] LABCLIA [id number] [place] [address] [place] Reagin and Treponema pallidu m IgG and IgM [Interp]on 02-04-2024 T. pallidum IgG+IgM IA Ql (S) Non-Reactive Nonreactive [facility] T. pallidum IgG+IgM IA Ql (S) Non-Reactive Normal Nonreactive [facility] Comment on above: Order Comment: Speci men Type: BLOOD SPECIMENOrdering Facility: [facility] Address: [address] [place] [address] Performed By: #### 7 3752-8, 5195-3, 66150-9 ####[facility] LABCLIA [id number] [place] [address] [place] Reagin+T pallidum IgG+IgM Se rPl-Impon 02-04-2024 Reagin and Treponema pallidum IgG and IgM [Interp] Cannot exclude recent Treponemal infection if specimen collected within 7-10 days after appearance of suspect lesions or 2-3 weeks after an exposure. Clinical correlation is required. Normal [facility] Comment on above: Order Comment: Speci men Type: BLOOD SPECIMENOrdering Facility: [facility] Address: [address] [place] [address] Performed By: #### 7 3752-8, 5195-3, 32093-0 ####[facility] LABCLIA [id number] [place] [address] [place] SYPHILIS TOTAL W/REFLEXon Reagin and Treponema pallidum IgG and IgM [Interp] Cannot exclude recent Treponemal infection if specimen collected within 7-10 days after appearance of suspect lesions or 2-3 weeks after an exposure. Clinical correlation is required. [facility] TYPE + SCREEN PRENATALon ABO group Nom (Bld) A [facility] Blood group antibody screen Ql Negative [facility] HIstorical Ab Scr Status Negative [facility] Rh Nom (Bld) Positive [facility] Type and Screen Expiration 02/07/2024 23:59 [facility] ABO A Normal [facility] Comment on above: Order Comment: Speci men Type: BLOOD SPECIMENOrdering Facility: [facility] Address: [address] [place] [address] Performed By: #### T SPN ####[facility]IN BLOOD BANKCLIA [id number] [place] [address] [place] [address] [facility] HISTORICAL AB SCR STATUS Negative Normal [facility] Comment on above: Order Comment: Speci men Type: BLOOD SPECIMENOrdering Facility: [facility] Address: [address] [place] [address] Performed By: #### T SPN ####[facility] BLOOD BANKCLIA [id number] [place] [address] [place] Rh Nom (Bld) Positive Normal [facility] Comment on above: Order Comment: Speci men Type: BLOOD SPECIMENOrdering Facility: [facility] Address: [address] [place] [address] Performed By: #### T SPN ####[facility] BLOOD BANKCLIA [id number] [place] [address] [place] TYPE AND SCREEN EXPIRATION 02/07/2024 23:59 Normal [facility] Comment on above: Order Comment: Speci men Type: BLOOD SPECIMENOrdering Facility: [facility] Address: [address] [place] [address] Performed By: #### T SPN ####CC MAIN BLOOD BANKCLIA [id number] [facility] [id number] [address] [place] BACTERIAL VAGINOSIS NAATon 0 12-26-2023 Interpretation and review of laboratory results Abnormal [facility] Lactobacillus crispatus+gasseri+fco enii + Gardnerella vaginalis + Atopobium vaginae rRNA MARGARETTE+probe Ql (Vag fld) Positive Abnormal Negative for bacterial vaginosis [facility] MATHIEU/TRICHOMONAS NAATon 0 12-26-2023 C. glabrata RNA MARGARETTE+probe Ql (Vag fld) Negative Negative for Mathieu glabrata [facility] Mathieu sp DNA MARGARETTE+probe Ql (Vag fld) Negative Negative for Mathieu species [facility] Interpretation and review of laboratory results Normal [facility] T. vaginalis DNA MARGARETTE+probe Ql (Unsp spec) Negative Negative for Trichomonas vaginalis by amplification [facility] CNPNon 12-26-2023 EMREN Telephone (OBGYWM) KIMBERLY JEONG ([id number]) 1995 F Date Time Provider Department 12/26/23 GISELLA AYALA OBBOUCHRAWMarek During your visit today, we recorded the following information about you: Gisella Ayala APRN.CNP 12/26/2023 6:51 AM Signed BV positive. To treat with Flagyl 500mg PO BID for 7 days. 1) No alcohol during treatment and for 24 hours after last dose. 2) No intercourse during treatment. 3) Probiotic by mouth once daily for 30 days or as needed. Gisella Ayala APRN.CNP Allergies As of Date: 12/26/2023 Noted Allergy Reaction POLLEN 12/05/2011 14 - Other: See Comments Comments: Nasal congestion and drainage Date Reviewed: 12/25/2023 Reviewed by: Yvonne Niño LPN - Fully Assessed Reason for Visit: Results [95] Order(s):metroNIDAZO LE (FLAGYL) 500 mg tabletTake 1 tablet by mouth two times a day for 7 days.Disp: 14 tabletRfl: 0 Prescriptions as of 12/26/2023 - metroNIDAZOLE (FLAGYL) 500 mg tablet Take 1 tablet by mouth two times a day for 7 days. - VRAYLAR 3 mg capsule Take 1 capsule by mouth once daily. - traZODone (DESYREL) 50 mg tablet - hydrOXYzine pamoate (VISTARIL) 50 mg capsule Take 2 capsules by mouth twice daily. - DULoxetine (CYMBALTA) 60 mg capsule Take 60 mg by mouth once daily. 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] 02/21/2020 Nausea and vomiting in [O21.9] 02/21/2020 08/22/2020 Depression complicating in second tri*02/21/2020 UTI (urinary tract infection) in , ant*02/25/2020 08/22/2020 Tetrahydrocannabinol (THC) use disorder, mild, *02/29/2020 Encounter for supervision of normal first pregn*06/06/2020 08/22/2020 Elevated glucose [R73.09] 07/04/2020 08/22/2020 Anemia complicating , second trimester*07/04/2020 08/22/2020 Recurrent major depressive disorder, in partial*11/03/2020 Short interval between pregnancies affecting pr*06/12/2021 H/O delivery, currently [O09.8*06/12/2021 Family history of spina bifida [Z82.79] 06/12/2021 Thickening of nuchal fold [RVK9629] 07/17/2021 Supervision of other high risk pregnancies, sec*10/30/2021 Anemia complicating , third trimester *12/17/2021 Amniotic fluid index increased [O40.9XX0] 12/17/2021 Unspecified injury of right ankle, subsequent e*09/10/2023 Sprain of unspecified ligament of right ankle, *09/10/2023 Injury of right ankle [S99.911A] 09/10/2023 Sprain of right ankle [S93.401A] 09/10/2023 Prescriptions ordered this encounter Disp Refills Start End METRONIDAZOLE 500 MG TABLET 14 t* 0 12/26/2023 01/02/2024 Route: ORAL Sig: Take 1 tablet by mouth two times a day for 7 days. Encounter Status:Closed by LUZ CODY on 12/26/23 Normal [facility] BACTERIAL VAGINOSIS NAATon 0 12-25-2023 Lactobacillus crispatus+gasseri+fco enii + Gardnerella vaginalis + Atopobium vaginae rRNA MARGARETTE+probe Ql (Vag fld) Positive Abnormal Negative for bacterial vaginosis [facility] Comment on above: Order Comment: Speci men Type: SWABOrdering Facility: [facility] Address: [address] [place] [address] Performed By: #### B VAMP, 45722-4 ####[facility] LABIA [id number] [place] [address] [place] C. trachomatis+N. gonorrhoea e DNA MARGARETTE+probe Ql (Unsp spec)on 12-25-2023 C. trachomatis rRNA MARGARETTE+probe Ql (Unsp spec) Negative Normal Negative for Chlamydia trachomatis by amplificaton [facility] Comment on above: Order Comment: Speci men Type: SWABOrdering Facility: [facility] Address: [address] [place] [address] Performed By: #### B VAMP, [id number] ####[facility] LABIA [id number] [place] [address] [place] N. gonorrhoeae rRNA MARGARETTE+probe Ql (Unsp spec) Negative Normal Negative for Neisseria gonorrhoeae by amplification [facility] Comment on above: Order Comment: Speci men Type: SWABOrdering Facility: [facility] Address: [address] [place] [address] Performed By: #### B VAMP, [id number] ####[facility] LABCLIA [id number] [place] [address] [place] MATHIEU/TRICHOMONAS NAATon 0 12-25-2023 C. glabrata RNA MARGARETTE+probe Ql (Vag fld) Negative Normal Negative for Mathieu glabrata [facility] Comment on above: Order Comment: Speci men Type: SWABOrdering Facility: [facility] Address: [address] [place] [address] Performed By: #### C VTV ####[facility] LABIA [id number] [place] [address] [place] Mathieu sp DNA MARGARETTE+probe Ql (Vag fld) Negative Normal Negative for Mathieu species [facility] Comment on above: Order Comment: Speci men Type: SWABOrdering Facility: [facility] Address: [address] [place] [address] Performed By: #### C VTV ####[facility] LABIA [id number] [address] [place] T. vaginalis DNA MARGARETTE+probe Ql (Unsp spec) Negative Normal Negative for Trichomonas vaginalis by amplification [facility] Comment on above: Order Comment: Speci men Type: SWABOrdering Facility: [facility] Address: [address] [place] [address] Performed By: #### C VTV ####[facility] LABIA [id number] [place] [address] [place] CNOVon 12-25-2023 CNOV Office Visit (OBGYWM) KIMBERLY JEONG ([id number]) 1995 F Date Time Provider Department 12/25/23 3:00 PM GISELLA AYALA OBGYWMarek During your visit today, we recorded the following information about you: Blood pressure Weight Last Period 110/62 84.8 kg 12/07/23 Gisella Ayala APRN.CNP 12/25/2023 4:18 PM Signed Kimberly Jeong is a 28 year old female who presents for vaginal pruritis, discharge, and odor for 1 week(s). Vaginal discharge: moderate amount, foul smelling, clear, and white. Itching: Some Dyspareunia: No Fever/chills: No Abdominal pain: No Bladder: Negative for dysuria or frequency Bowel: No blood in stool, pain with BM, tarry stool, persistent diarrhea or constipation Any new sexual partners or concern for STD exposure: Yes: was unfaithful Any history of STDs: None Does your partner have any new complaints: No Are you currently taking any medications to treat vaginitis: No Do you use feminine sprays, douches or deodorants: No Past medical, surgical, social history, medications and allergies reviewed and updated. OBJECTIVE: BP 110/62 Wt 187 lb (84.8kg) LMP 12/07/2023 GENERAL: Well developed, well nourished in no apparent distress PELVIC: external genitalia normal, normal Bartholin's glands, urethra, Dunthorpe's glands, no vulvar lesions, no cervical lesions, good vaginal support, physiologic discharge present, normal appearing perineal body and perianal region ASSESSMENT/PLAN: 1. Screening for STDs (sexually transmitted diseases) - ICD9: V74.5, ICD10: Z11.3 (primary diagnosis) - GONORRHEA/CHLAMYDIA NAAT 2. Vaginal irritation - ICD9: 623.9, ICD10: N89.8 - MATHIEU/TRICHOMONAS NAAT - BACTERIAL VAGINOSIS NAAT Will notify patient of test results. Gisella Ayala APRN.CNP Medical Decision Making: Problems: Moderate: New problem with uncertain prognosis Data: Unique test(s) ordered: 3+ Risk: Low: Low risk from testing/treatment Medical Decision Making Level: 4 - Moderate Allergies As of Date: 12/25/2023 Noted Allergy Reaction POLLEN 12/05/2011 14 - Other: See Comments Comments: Nasal congestion and drainage Date Reviewed: 12/25/2023 Reviewed by: Yvonne Niño LPN - Fully Assessed Primary Visit Diagnosis:Screening for STDs (sexually transmitted diseases) [Z11.3] Other Visit Diagnosis:Vaginal irritation [N89.8] Order(s):GONORRHEA/C HLAMYDIA NAAT [SQGCCT] Order #: [id number]. #:[id number] MATHIEU/TRICHOMONAS NAAT [SQCVTV] Order #: [id number]. #:[id number] BACTERIAL VAGINOSIS NAAT [SQBVAMP] Order #: [id number]. #:[id number] Prescriptions as of 12/25/2023 - VRAYLAR 3 mg capsule Take 1 capsule by mouth once daily. - traZODone (DESYREL) 50 mg tablet - hydrOXYzine pamoate (VISTARIL) 50 mg capsule Take 2 capsules by mouth twice daily. - DULoxetine (CYMBALTA) 60 mg capsule Take 60 mg by mouth once daily. 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] 02/21/2020 Nausea and vomiting in [O21.9] 02/21/2020 08/22/2020 Depression complicating in second tri*02/21/2020 UTI (urinary tract infection) in , ant*02/25/2020 08/22/2020 Tetrahydrocannabinol (THC) use disorder, mild, *02/29/2020 Encounter for supervision of normal first pregn*06/06/2020 08/22/2020 Elevated glucose [R73.09] 07/04/2020 08/22/2020 Anemia complicating , second trimester*07/04/2020 08/22/2020 Recurrent major depressive disorder, in partial*11/03/2020 Short interval between pregnancies affecting pr*06/12/2021 H/O delivery, currently [O09.8*06/12/2021 Family history of spina bifida [Z82.79] 06/12/2021 Thickening of nuchal fold [TEI4222] 07/17/2021 Supervision of other high risk pregnancies, sec*10/30/2021 Anemia complicating , third trimester *12/17/2021 Amniotic fluid index increased [O40.9XX0] 12/17/2021 Unspecified injury of right ankle, subsequent e*09/10/2023 Sprain of unspecified ligament of right ankle, *09/10/2023 Injury of right ankle [S99.911A] 09/10/2023 Sprain of right ankle [S93.401A] 09/10/2023 Medications Discontinued During This Encounter Prescriptions - topiramate (TOPAMAX) 50 mg tablet (Discontinued) Take 1 tablet by mouth once daily. - meloxicam (MOBIC) 15 mg tablet (Discontinued) Take 1 tablet by mouth once daily. With food. Encounter Status:Closed by GISELLA AYALA on 12/25/23 [facility] CNOVon 10-20-2023 CNOV Office Visit (FAMPWS) KIMBERLY JEONG ([id number]) 1995 F Date Time Provider Department 10/20/23 6:00 PM SURJIT AGUIRRE FAMPWS During your visit today, we recorded the following information about you: Pulse Respiration Blood pressure Weight 74/minute 16/minute 100/68 79.5 kg Surjit Aguirre MD 10/20/2023 6:32 PM Signed Chief Complaint Patient presents with: Right Hip Pain HPI Kimberly Jeong is a 27 year old female who presents here today for a same day visit. Pt here today with c/o of right hip pain that started 6 days ago. Denies any injury or known cause that she can think of that would start this. Does not feel that her pain is radiating from her back or SI joint. Pain located mostly in the right hip area, but with standing she will experience a sharp pain, jolting pain that almost feels like her leg is going to go out. Rates pain a 9/10. Pain also radiates around to the front of her leg and groin area. Once standing the pain decreases and becomes an aching pain with no radiation. Pt states she will start walking and the pain will reduce being a less of a dull ache and more tolerable. Pain at that time is a 2/10. Reports maybe noticing a warm sensation down the front of her leg/thigh area. Also noticing when trying to lift her leg up she is experiencing some pain. Has tried Ibuprofen, Tylenol and Bio Freeze. Past medical history, appointments, medications, allergies reviewed. Previous Medical History PAST MEDICAL HISTORY Diagnosis Date Anemia complicating , second trimester 07/04/2020 depression anxiety fracture 11 years old right wrist-fell out of bunk bed H/O delivery, currently Myocarditis (HCC) age 18 months 2006 cleared for Sports [address] Dr. Lay--recheck age 18 yrs PMH - PAST MEDICAL HISTORY OF 06/2007 Right wrist fracture PMH - PAST MEDICAL HISTORY OF normal color vision depression Previous Surgical History PAST SURGICAL HISTORY Procedure Laterality Date DELIVERY ONLY 01/05/2022 LTCS PAST SURGICAL HISTORY OF wisdom teeth Family History FAMILY HISTORY Problem Relation Age of Onset other (Celiac disease) Mother Hypertension Father No Known Problems Sister No Known Problems Sister other (other) Brother No Known Problems Brother No Known Problems Brother No Known Problems Brother Diabetes Maternal Grandmother Breast Cancer Maternal Grandmother No Known Problems Maternal Grandfather Hypertension Paternal Grandmother Colon Cancer Paternal Grandmother Hyperlipidemia Paternal Grandmother Cancer Paternal Grandfather Bladder Cancer No Known Problems Son Patient Allergies ALLERGIES Allergen Reactions Pollen Other: See Comments Nasal congestion and drainage Current Medications Current Outpatient Medications on File Prior to Visit Medication Sig VRAYLAR 3 mg capsule Take 1 capsule by mouth once daily. TRULICITY 0.75 mg/0.5 mL pen injector Inject 0.75 mg subcutaneously one time a week. FEROSUL 325 mg (65 mg iron) tablet Take 1 tablet by mouth once daily. traZODone (DESYREL) 50 mg tablet hydrOXYzine pamoate (VISTARIL) 50 mg capsule Take 2 capsules by mouth twice daily. DULoxetine (CYMBALTA) 60 mg capsule Take 60 mg by mouth once daily. No current facility-administere d medications on file prior to visit. Social History Social History Tobacco Use Smoking status: Never Smokeless tobacco: Never Vaping Use Vaping Use: Never used Substance Use Topics Alcohol use: Not Currently Drug use: No EXAM: BP 100/68 (BP Site: Left Arm, BP Position: Sitting, BP Cuff Size: Regular Adult) Pulse 74 Resp 16 Wt 79.5 kg (175 lb 3.2 oz) LMP 05/09/2023 (Exact Date) BMI 31.53 kg/m? General Appearance: Well appearing, alert, in no acute distress, well-hydrated, well nourished.. Extremities: right hip: FROM, tender over greater tochanter. Health Maintenance List Influenza Vaccine(1) due on 02/15/2024 Covid-19 Vaccine(1) due on 08/04/2024 Pap Testing due on 06/19/2024 DTaP,Tdap,Td Vaccine(10 - Td or Tdap) due on 11/14/2031 Hepatitis B Vaccine Completed HPV Vaccine Completed Hepatitis C Screening Completed HIV Screening Completed Data reviewed None ASSESSMENT/PLAN: 1. Trochanteric bursitis of right hip - ICD9: 726.5, ICD10: M70.61 Mobic, heat/ice - MELOXICAM 15 MG TABLET Call if not improving in 2-3 weeks Medical Decision Making: Problems: Low: Acute, uncomplicated illness or injury Risk: Moderate: Drug management Medical Decision Making Level: 3 - Low Surjit Aguirre MD Allergies As of Date: 10/20/2023 Noted Allergy Reaction POLLEN 12/05/2011 14 - Other: See Comments Comments: Nasal congestion and drainage Date Reviewed: 10/20/2023 Reviewed by: June [place] Ma - Fully Assessed Reason for Visit: Right Hip Pain [1554] Primary Visit Di (more content not included)... Normal [facility] CNTHERAPYon 09-24-2023 CNTHERAPY OT/PT/Speech Visit (PTWS) KIMBERLY JEONG Abram ([id number]) 1995 F Date Time Provider Department 09/24/23 5:15 PM JAIME KIMBERLY PTWS Date Time Provider Department [place] 09/24/2023 5:15 PM [id number], MARIAH PTWS Venita [place] Reason for Visit: PT Discharge [752] Primary Visit Diagnosis:Unspecifie d injury of right ankle, subsequent encounter [S99.911D] Other Visit Diagnosis:Sprain of unspecified ligament of right ankle, initial encounter [S93.401A] Allergies As of Date: 09/24/2023 Noted Allergy Reaction POLLEN 12/05/2011 14 - Other: See Comments Comments: Nasal congestion and drainage Date Reviewed: 09/08/2023 Reviewed by: Payton Bloom LPN - Fully Assessed Prescriptions as of 10/20/2023 - VRAYLAR 3 mg capsule Take 1 capsule by mouth once daily. - TRULICITY 0.75 mg/0.5 mL pen injector Inject 0.75 mg subcutaneously one time a week. - FEROSUL 325 mg (65 mg iron) tablet Take 1 tablet by mouth once daily. - traZODone (DESYREL) 50 mg tablet - hydrOXYzine pamoate (VISTARIL) 50 mg capsule Take 2 capsules by mouth twice daily. - DULoxetine (CYMBALTA) 60 mg capsule Take 60 mg by mouth once daily. Normal [facility] CNTHERAPYon 09-17-2023 CNTHERAPY OT/PT/Speech Visit (PTWS) KIMBERLY JEONG ([id number]) 1995 F Date Time Provider Department 09/17/23 5:15 PM KANWAL SALDAÑA PTWS Date Time Provider Department Center 09/17/2023 5:15 PM [id number] SALDAÑA PTWS Venita Burden Reason for Visit: Physical Therapy [503] Primary Visit Diagnosis:Unspecifie d injury of right ankle, subsequent encounter [S99.911D] Other Visit Diagnosis:Sprain of unspecified ligament of right ankle, initial encounter [S93.401A] Allergies As of Date: 09/17/2023 Noted Allergy Reaction POLLEN 12/05/2011 14 - Other: See Comments Comments: Nasal congestion and drainage Date Reviewed: 09/08/2023 Reviewed by: Payton Bloom LPN - Fully Assessed Prescriptions as of 09/17/2023 - VRAYLAR 3 mg capsule Take 1 capsule by mouth once daily. - TRULICITY 0.75 mg/0.5 mL pen injector Inject 0.75 mg subcutaneously one time a week. - FEROSUL 325 mg (65 mg iron) tablet Take 1 tablet by mouth once daily. - traZODone (DESYREL) 50 mg tablet - hydrOXYzine pamoate (VISTARIL) 50 mg capsule Take 2 capsules by mouth twice daily. - DULoxetine (CYMBALTA) 60 mg capsule Take 60 mg by mouth once daily. Staff Physical Therapy Assistant: Addendum Therapy (PT/OT/Speech/Resp) ID: [id number] 09/17/2023 5:37 PM Author: KANWAL SALDAÑA Signed by KANWAL SALDAÑA PT on 09/17/2023 at 5:37 PM * * * This document replaces document [id number] * * * Document text: Program_ID:[id number] Access Code: [email or web address] URL: [email or web address]/ Date: 09-17-2023 Prepared By: Kanwal Saldaña Program Notes Exercises - Kneeling Ankle Dorsiflexion Self-Mobilization with Towel - 3 x daily - 7 x weekly - 2 sets - 15 reps -------- Normal [facility] THERAPY NTon 09-17-2023 THERAPY NT HNO ID: [id number] Author: KANWAL SALDAÑA PT Service: ? Author Type: Physical Therapist Type: Therapy (PT/OT/Speech/Resp) Filed: 09/17/2023 17:30 Note Text: Program_ID:[id number] Access Code: [email or web address] URL: [email or web address]/ Date: 09-17-2023 Prepared By: Kanwal Saldaña Program Notes Exercises - Kneeling Ankle Dorsiflexion Self-Mobilization with Towel - 3 x daily - 7 x weekly - 2 sets - 15 reps Normal [facility] CNTHERAPYon 09-15-2023 CNTHERAPY OT/PT/Speech Visit (PTWS) KIMBERLY JEONG ([id number]) 1995 F Date Time Provider Department 09/15/23 5:15 PM KIMBERLY SANDOVAL PTWS Date Time Provider Department Center 09/15/2023 5:15 PM [id number], MARIAH PTMARVIN Burden Reason for Visit: Physical Therapy [503] Primary Visit Diagnosis:Unspecifie d injury of right ankle, subsequent encounter [S99.915R] Other Visit Diagnosis:Sprain of unspecified ligament of right ankle, initial encounter [S99.943Z] Allergies As of Date: 09/15/2023 Noted Allergy Reaction POLLEN 12/05/2011 14 - Other: See Comments Comments: Nasal congestion and drainage Date Reviewed: 09/08/2023 Reviewed by: Payton Bloom LPN - Fully Assessed Prescriptions as of 09/16/2023 - VRAYLAR 3 mg capsule Take 1 capsule by mouth once daily. - TRULICITY 0.75 mg/0.5 mL pen injector Inject 0.75 mg subcutaneously one time a week. - FEROSUL 325 mg (65 mg iron) tablet Take 1 tablet by mouth once daily. - traZODone (DESYREL) 50 mg tablet - hydrOXYzine pamoate (VISTARIL) 50 mg capsule Take 2 capsules by mouth twice daily. - DULoxetine (CYMBALTA) 60 mg capsule Take 60 mg by mouth once daily. Normal [facility] CNTHERAPYon 09-10-2023 CNTHERAPY OT/PT/Speech Visit (PTWS) KIMBERLY JEONG ([id number]) 1995 F Date Time Provider Department 09/10/23 8:15 AM KANWAL SALDAÑA PTWS Date Time Provider Department Center 09/10/2023 8:15 AM [id number] SALDAÑA PTWS Venita Bertram Reason for Visit: PT Jaquan [747] Primary Visit Diagnosis:Injury of right ankle, subsequent encounter [S99.919W] Other Visit Diagnosis:Sprain of right ankle, unspecified ligament, initial encounter [S99.397E] Allergies As of Date: 09/10/2023 Noted Allergy Reaction POLLEN 12/05/2011 14 - Other: See Comments Comments: Nasal congestion and drainage Date Reviewed: 09/08/2023 Reviewed by: Payton Bloom LPN - Fully Assessed Prescriptions as of 09/10/2023 - VRAYLAR 3 mg capsule Take 1 capsule by mouth once daily. - TRULICITY 0.75 mg/0.5 mL pen injector Inject 0.75 mg subcutaneously one time a week. - FEROSUL 325 mg (65 mg iron) tablet Take 1 tablet by mouth once daily. - traZODone (DESYREL) 50 mg tablet - hydrOXYzine pamoate (VISTARIL) 50 mg capsule Take 2 capsules by mouth twice daily. - DULoxetine (CYMBALTA) 60 mg capsule Take 60 mg by mouth once daily. Staff Physical Therapy Assistant: Addendum Therapy (PT/OT/Speech/Resp) ID: [id number] 09/10/2023 8:31 AM Author: KANWAL SALDAÑA Signed by KANWAL SALDAÑA PT on 09/10/2023 at 8:31 AM * * * This document replaces document [id number] * * * Document text: Program_ID:[id number] Access Code: [email or web address] URL: [email or web address] Date: 09-10-2023 Prepared By: Kanwal Saldaña Program Notes Exercises - Seated Heel Toe Raises - 2-3 x daily - 7 x weekly - 1-2 sets - 20 reps - Long Sitting Isometric Ankle Inversion in Dorsiflexion with Ball at Wall - 2-3 x daily - 7 x weekly - 1 sets - 5 reps - Long Sitting Isometric Ankle Eversion in Plantar Flexion with Ball at Wall - 2-3 x daily - 7 x weekly - 1 sets - 5 reps - Long Sitting Isometric Ankle Plantarflexion with Ball at Wall - 2-3 x daily - 7 x weekly - 1 sets - 5 reps - Isometric Ankle Dorsiflexion and Plantarflexion - 2-3 x daily - 7 x weekly - 1 sets - 5 reps -------- Normal [facility] THERAPY NTon 09-10-2023 THERAPY NT HNO ID: [id number] Author: KANWAL SALDAÑA PT Service: ? Author Type: Physical Therapist Type: Therapy (PT/OT/Speech/Resp) Filed: 09/10/2023 08:27 Note Text: Program_ID:[id number] Access Code: [email or web address] URL: [email or web address] Date: 09-10-2023 Prepared By: Kanwal Saldaña Program Notes Exercises - Seated Heel Toe Raises - 2-3 x daily - 7 x weekly - 1-2 sets - 20 reps - Long Sitting Isometric Ankle Inversion in Dorsiflexion with Ball at Wall - 2-3 x daily - 7 x weekly - 1 sets - 5 reps - Long Sitting Isometric Ankle Eversion in Plantar Flexion with Ball at Wall - 2-3 x daily - 7 x weekly - 1 sets - 5 reps - Long Sitting Isometric Ankle Plantarflexion with Ball at Wall - 2-3 x daily - 7 x weekly - 1 sets - 5 reps - Isometric Ankle Dorsiflexion and Plantarflexion - 2-3 x daily - 7 x weekly - 1 sets - 5 reps Normal [facility] CNOVon 09-08-2023 CNOV Office Visit (PODIWS) KIMBERLY JEONG ([id number]) 1995 F Date Time Provider Department 09/08/23 8:00 AM INDIRA IBARRA PODIWS During your visit today, we recorded the following information about you: Payton Bloom LPN 09/08/2023 8:21 AM Signed AMB ROOMING INTAKE FLOWSHEET DATA Risk Screening Do you have concerns about personal safety or safety in the home?: No Pain Pain Level: 4 Pain Location: Ankle-Right Description: Sharp, Dull, Aching Duration Amount of Time: 5 Duration Units: Months Frequency: Intermittent Intervention/Comfort measure: Reposition, Relaxation, Medication Patient presents with: Right Ankle - New, Pain, Swelling, Fracture BIJU De Matthew 09/08/2023 8:21 AM Signed Consultation requested by Dr. Aguirre for an opinion regarding right ankle pain. My final recommendations will be communicated back to the requesting physician by way of shared Medical record or letter to requesting physician via US mail. Initial Podiatric Office Visit: Chief Complaint: This 27 year old female who presents with chief complaint:right ankle pain HPI Patient presents to clinic for evaluation of right ankle She rolled her right ankle back in March. She rolled her foot inward. She had xrays in March that was suggestive of ankle fracture. Patient was placed in an aircast for 1.5 weeks. She stopped using after 1.5 weeks because she did not feel any better using. She has been in a shoe since April. She has pain at the end of a day. Patient does take ibuprofen and/or tylenol which does help to some degree. Patient states that most of her pain is when she moves her foot up and down. PAIN EVALUATION 09/08/2023 0807 Pain Level: 4 Pain Location: Ankle-Right Description: Sharp;Dull;Aching Duration Amount of Time: 5 Duration Units: Months Frequency: Intermittent Intervention/Comfort measure: Reposition;Relaxatio n;Medication Hemoglobin A1C (%) Date Value 07/21/2023 5.6 PCP: Surjit Aguirre MD PAST MEDICAL HISTORY Diagnosis Date Anemia complicating , second trimester 07/04/2020 depression anxiety fracture 11 years old right wrist-fell out of bunk bed H/O delivery, currently Myocarditis (HCC) age 18 months 2006 cleared [address] Dr. Lay--maribel age 18 yrs PMH - PAST MEDICAL HISTORY OF 06/2007 Right wrist fracture PMH - PAST MEDICAL HISTORY OF normal color vision depression Current Outpatient Medications Medication Sig VRAYLAR 3 mg capsule Take 1 capsule by mouth once daily. TRULICITY 0.75 mg/0.5 mL pen injector Inject 0.75 mg subcutaneously one time a week. FEROSUL 325 mg (65 mg iron) tablet Take 1 tablet by mouth once daily. traZODone (DESYREL) 50 mg tablet hydrOXYzine pamoate (VISTARIL) 50 mg capsule Take 2 capsules by mouth twice daily. DULoxetine (CYMBALTA) 60 mg capsule Take 60 mg by mouth once daily. No current facility-administere d medications for this visit. ALLERGIES Allergen Reactions Pollen Other: See Comments Nasal congestion and drainage PAST SURGICAL HISTORY Procedure Laterality Date DELIVERY ONLY 01/05/2022 LTCS PAST SURGICAL HISTORY OF wisdom teeth FAMILY HISTORY Problem Relation Age of Onset other (Celiac disease) Mother Hypertension Father No Known Problems Sister No Known Problems Sister other (other) Brother No Known Problems Brother No Known Problems Brother No Known Problems Brother Diabetes Maternal Grandmother Breast Cancer Maternal Grandmother No Known Problems Maternal Grandfather Hypertension Paternal Grandmother Colon Cancer Paternal Grandmother Hyperlipidemia Paternal Grandmother Cancer Paternal Grandfather Bladder Cancer No Known Problems Son Social History Tobacco Use Smoking status: Never Smokeless tobacco: Never Vaping Use Vaping Use: Never used Substance Use Topics Alcohol use: Not Currently Drug use: No REVIEW OF SYSTEMS GENERAL: Negative for Malaise, significant weight loss, fever RESPIRATORY: Negative for cough, wheezing and shortness of breath CARDIOVASCULAR: Negative for chest pain, leg swelling and palpitations GI: Negative for abdominal discomfort, blood in stools or black stools and change in bowel habits : Negative for dysuria, frequency and incontinence MUSCULOSKELETAL: Negative for joint pain or swelling, back pain, and muscle pain. SKIN: Negative for lesions, rash, and itching. HEMATOLOGY/LYMPHOLOG Y Negative for prolonged bleeding, bruising easily, and swollen nodes. ENDOCRINE: Negative for cold or heat intolerance, polyuria, polydipsia and goiter. NEURO: negative Physical Exam: Constitutional: Pt is a well developed 27 year old female who is alert, oriented and cooperative Eyes: Following during examination. No redness or drainage. Respiratory: RR no (more content not included)... Normal [facility] XR Ankle - right AP and Late ral and obliqueon 08-07-2023 IMPRESSION: No acute radiographic abnormalities seen in the right ankle. Supervisor Smoke Control: DONNA Transcribe Date/Time: Aug 07 2023 4:28P Dictated by : JOVANNI FIERRO MD This examination was interpreted and the report reviewed and electronically signed by: JOVANNI FIERRO MD on Aug 07 2023 4:30PM [facility] DIVISION OF RADIOLOGY * * *Final Report* * * DATE OF EXAM: Aug 04 2023 5:10PM WOX [id number] - XR ANKLE 3V AP/LAT/OBL RT / PROCEDURE REASON: Injury of right ankle, subsequent encounter * * * * Physician Interpretation * * * * EXAM TITLE: XR ANKLE 3V AP/LAT/OBL RT EXAM DATE/TIME: 08/04/2023 5:10 PM COMPARISON: X-ray ankle on 04/17/2023 CLINICAL INDICATION/HISTORY: Injury TECHNIQUE: AP, mortise and lateral views of the right ankle are presented. FINDINGS: No acute fractures or subluxations are noted. The mortise joint spaces are well preserved. There is no evidence of joint effusion. The mineralization of the bones is normal. There is no significant soft tissue swelling. DIVISION OF RADIOLOGY Provider, [facility] [place] - 08/07/2023 * * *Final Report* * * DATE OF EXAM: Aug 04 2023 5:10PM WOX [id number] - XR ANKLE 3V AP/LAT/OBL RT / PROCEDURE REASON: Injury of right ankle, subsequent encounter * * * * Physician Interpretation * * * * EXAM TITLE: XR ANKLE 3V AP/LAT/OBL RT EXAM DATE/TIME: 08/04/2023 5:10 PM COMPARISON: X-ray ankle on 04/17/2023 CLINICAL INDICATION/HISTORY: Injury TECHNIQUE: AP, mortise and lateral views of the right ankle are presented. FINDINGS: No acute fractures or subluxations are noted. The mortise joint spaces are well preserved. There is no evidence of joint effusion. The mineralization of the bones is normal. There is no significant soft tissue swelling. IMPRESSION IMPRESSION: No acute radiographic abnormalities seen in the right ankle. Supervisor Smoke Control: PSCB Transcribe Date/Time: Aug 07 2023 4:28P Dictated by : JOVANNI FIERRO MD This examination was interpreted and the report reviewed and electronically signed by: JOVANNI FIERRO MD on Aug 07 2023 4:30PM EST [facility] XR Ankle - right AP and Late ral and obliqueOrdered By: Ccf Provider on 08-07-2023 [facility] CNOVon 08-04-2023 CNOV Office Visit (FAMPWS) KIMBERLY JEONG ([id number]) 1995 F Date Time Provider Department 08/04/23 5:00 PM [facility] During your visit today, we recorded the following information about you: Pulse Respiration Blood pressure Weight 68/minute 16/minute 110/72 83.6 kg Height 1.588 m Surjit Aguirre MD 08/04/2023 5:44 PM Signed Chief Complaint Patient presents with: Wellness HPI Kimberly Jeong is a 27 year old female who presents here today for a Physical Pt here today for a Physical, stating that she needed this for work. Denies having any forms that need completed. Working in [employer]. Pt has not been seen since September 2022, but has been started on multiple medications from an outside Provider. Has two boys ages 3 and 1, very busy. GI/Uro - Denies any stomach, bowel or urinary issues. 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 Cardio - Denies any chest pain, sob or dizziness. Diet/Exercise/Weight - Trying to watch diet, notes has picky eaters at home which makes meal planning difficult. Trying to cut out pop and coffee, drink more water. Exercises 3 days per week, notes if she does more her ankle will start bothering her. Has put on weight due to Cymbalta medication. Was recently started on Trulicity by Psych to help with weight loss. Depression - Pt currently taking Cymbalta 60 mg once daily, Hydroxyzine 50 mg, Vraylar 3 mg once daily and Trazodone 50 mg once daily. Following with [facility]. Has been following her for the past year, notes she did stop seeing her temporarily, but resumed seeing her again in March. Following up once a month. Anemia - Recently prescribed Ferosul 65 mg once daily. Notes she's slowly weaning herself on this dosage due to causing GI upset. Had x-ray done of foot/ankle before visit. Notes that she fx right ankle at the end of March last year. States her foot slipped off the edge of the driveway when she was getting her kids out of the car, causing her to fall. Had pain at onset, with swelling. She was placed in an air cast, wore this for about two weeks. Since that time she has limited ROM with moving her foot, crossing her feet behind her or pointing her toes cause pain. At times the pain will radiate to her lower leg. HM - Declines Flu and Covid vaccines. Past medical history, appointments, medications, allergies reviewed. Previous Medical History PAST MEDICAL HISTORY Diagnosis Date Anemia complicating , second trimester 07/04/2020 depression anxiety fracture 11 years old right wrist-fell out of bunk bed H/O delivery, currently Myocarditis (HCC) age 18 months [address] Lay--maribel age 18 yrs PMH - PAST MEDICAL HISTORY OF 06/2007 Right wrist fracture PMH - PAST MEDICAL HISTORY OF normal color vision depression Previous Surgical History PAST SURGICAL HISTORY Procedure Laterality Date DELIVERY ONLY 01/05/2022 [facility] PAST SURGICAL HISTORY OF wisdom teeth Family History FAMILY HISTORY Problem Relation Age of Onset other (Celiac disease) Mother Hypertension Father No Known Problems Sister No Known Problems Sister other (other) Brother No Known Problems Brother No Known Problems Brother No Known Problems Brother Diabetes Maternal Grandmother Breast Cancer Maternal Grandmother No Known Problems Maternal Grandfather Hypertension Paternal Grandmother Colon Cancer Paternal Grandmother Hyperlipidemia Paternal Grandmother Cancer Paternal Grandfather Bladder Cancer No Known Problems Son Patient Allergies ALLERGIES Allergen Reactions Pollen Other: See Comments Nasal congestion and drainage Current Medications Current Outpatient Medications on File Prior to Visit Medication Sig VRAYLAR 3 mg capsule traZODone (DESYREL) 50 mg tablet meloxicam (MOBIC) 15 mg tablet Take 1 tablet by mouth once daily. With food. (Patient not taking: Reported on 05/21/2023) hydrOXYzine pamoate (VISTARIL) 50 mg capsule Take 2 capsules by mouth twice daily. DULoxetine (CYMBALTA) 60 mg capsule Take 60 mg by mouth once daily. No current facility-administere d medications on file prior to visit. Social History Social History Tobacco Use Smoking status: Never Smokeless tobacco: Never Vaping Use Vaping Use: Never used Substance Use Topics Alcohol use: Not Currently Drug use: No EXAM: BP 110/72 (BP Site: Left Arm, BP Position: Sitting, BP Cuff Size: Regular Adult) Pulse 68 Resp 16 Ht 158.8 cm (5' 2.5 ) Wt 83.6 kg (184 lb 3.2 oz) LMP 05/09/2023 (Exact Date) BMI 33.15 kg/m? General Appearance: Well appearing, alert, in no acute distress, well-hydrated, well nourished. and Obese. Neck: Supple, no adenopathy; thyroid symmetric, normal size, no bruits. Lungs: Lungs clear to auscultation. No wheezing, (more content not included)... Normal [facility] XR ANKLE 3V AP/LAT/OBL RTon 08-04-2023 XR ANKLE 3V AP/LAT/OBL RT * * *Final Report* * * DATE OF EXAM: Aug 04 2023 5:10PM WOX [id number] - XR ANKLE 3V AP/LAT/OBL RT / PROCEDURE REASON: Injury of right ankle, subsequent encounter * * * * Physician Interpretation * * * * EXAM TITLE: XR ANKLE 3V AP/LAT/OBL RT EXAM DATE/TIME: 08/04/2023 5:10 PM COMPARISON: X-ray ankle on 04/17/2023 CLINICAL INDICATION/HISTORY: Injury TECHNIQUE: AP, mortise and lateral views of the right ankle are presented. FINDINGS: No acute fractures or subluxations are noted. The mortise joint spaces are well preserved. There is no evidence of joint effusion. The mineralization of the bones is normal. There is no significant soft tissue swelling. IMPRESSION: No acute radiographic abnormalities seen in the right ankle. Supervisor Smoke Control: PSCB Transcribe Date/Time: Aug 07 2023 4:28P Dictated by : JOVANNI FIERRO MD This examination was interpreted and the report reviewed and electronically signed by: JOVANNI FIERRO MD on Aug 07 2023 4:30PM EST [id number] CN Normal [facility] XR Ankle - right AP and Late ral and obliqueon 08-04-2023 Radiology Study observation (narrative) [facility] 25-HYDROXY D2+D3on 3 25-hydroxyvitamin D3 [Mass/Vol] 15.7 ng/mL Low 30.0-100.0 [facility] Comment on above: Order Comment: Talia parsons Type: BLOOD SPECIMENOrdering Facility: External Submitter Address: , , Result Comment: Defi cient: <20.1 ng/mL Insufficient: 20.1 - 29.9 ng/mL Sufficient: 30.0 - 100.0 ng/mL Toxic: >150.0 ng/mL Reference: Shalom JARA, N Engl J Med (2007)[id number]:266-81 This test was developed and its performance characteristics determined by the [facility] [place] at the [facility]. The U.S. Food and Drug Administration has not approved or cleared this test, however, FDA clearance or approval is not currently required for clinical use. Performed By: #### D 2D3 ####[facility]IA [id number] [address] [address] [place] Vitamin D2 [Mass/Vol] <5.0 Normal [facility] Comment on above: Order Comment: Talia parsons Type: BLOOD SPECIMENOrdering Facility: External Submitter Address: , , Performed By: #### D 2D3 ####[facility] LABCLIA [id number] [place] Vitamin D3 [Mass/Vol] 15.7 ng/mL Normal [facility] Comment on above: Order Comment: Speci men Type: BLOOD SPECIMENOrdering Facility: External Submitter Address: , , Performed By: #### D 2D3 ####[facility] LABCLIA [id number] [place] [address] [place] CBC panel Auto (Bld)on 07-21 Erythrocyte distribution width (RBC) [Ratio] 16.3 % High 11.5-15.0 [facility] Comment on above: Order Comment: Speci men Type: BLOOD SPECIMENOrdering Facility: External Submitter Address: , , Performed By: #### 5 8410-2 ####[facility]IA [id number] [address] [place] Hematocrit (Bld) [Volume fraction] 38.3 % Normal 36.0-46.0 [facility] Comment on above: Order Comment: Speci men Type: BLOOD SPECIMENOrdering Facility: External Submitter Address: , , Performed By: #### 5 8410-2 ####[facility] [id number] [address] [place] Hemoglobin (Bld) [Mass/Vol] 11.9 g/dL Normal 11.5-15.5 [facility] Comment on above: Order Comment: Speci men Type: BLOOD SPECIMENOrdering Facility: External Submitter Address: , , Performed By: #### 5 8410-2 ####[facility]IA [id number] [place] [address] [place] MCH (RBC) [Entitic mass] 23.6 pg Low 26.0-34.0 [facility] Comment on above: Order Comment: Speci men Type: BLOOD SPECIMENOrdering Facility: External Submitter Address: , , Performed By: #### 5 8410-2 ####[facility]CLIA [id number] [address] [place] MCHC (RBC) [Mass/Vol] 31.1 g/dL Normal 30.5-36.0 [facility] Comment on above: Order Comment: Speci men Type: BLOOD SPECIMENOrdering Facility: External Submitter Address: , , Performed By: #### 5 8410-2 ####[facility]CLIA [id number] [place] [address] [place] MCV (RBC) [Entitic vol] 76.0 fL Low 80.0-100.0 [facility] Comment on above: Order Comment: Speci men Type: BLOOD SPECIMENOrdering Facility: External Submitter Address: , , Performed By: #### 5 8410-2 ####[facility]CLIA [id number] [address] [place] Nucleated RBC (Bld) [#/Vol] 10*3/uL Normal <0.01 [facility] Comment on above: Order Comment: Speci men Type: BLOOD SPECIMENOrdering Facility: External Submitter Address: , , Performed By: #### 5 8410-2 ####[facility]CLIA [id number] [address] [place] Platelet mean volume (Bld) [Entitic vol] 10.4 fL Normal 9.0-12.7 [facility] Comment on above: Order Comment: Speci men Type: BLOOD SPECIMENOrdering Facility: External Submitter Address: , , Performed By: #### 5 8410-2 ####[facility] LABCLIA [id number] [place] [address] [place] Platelets (Bld) [#/Vol] 330 10*3/uL Normal 150-400 [facility] Comment on above: Order Comment: Speci men Type: BLOOD SPECIMENOrdering Facility: External Submitter Address: , , Performed By: #### 5 8410-2 ####[facility] LABCLIA [id number] [place] [address] [place] RBC (Bld) [#/Vol] 5.04 10*6/uL Normal 3.90-5.20 [facility] Comment on above: Order Comment: Speci men Type: BLOOD SPECIMENOrdering Facility: External Submitter Address: , , Performed By: #### 5 8410-2 ####[facility] [id number] [place] [address] [place] WBC (Bld) [#/Vol] 8.08 10*3/uL Normal 3.70-11.00 [facility] Comment on above: Order Comment: Speci men Type: BLOOD SPECIMENOrdering Facility: External Submitter Address: , , Performed By: #### 5 8410-2 ####[facility] [id number] [place] [address] [place] Comprehensive metabolic 2000 panelon 07-21-2023 Albumin [Mass/Vol] 3.6 g/dL Low 3.9-4.9 [facility] Comment on above: Order Comment: Speci men Type: BLOOD SPECIMENOrdering Facility: External Submitter Address: , , Performed By: #### 2 284-8, 2131, 42939-7 ####[facility] [id number] [place] [address] [place] ALP [Catalytic activity/Vol] 80 U/L Normal 34-123 [facility] Comment on above: Order Comment: Speci men Type: BLOOD SPECIMENOrdering Facility: External Submitter Address: , , Performed By: #### 2 923-8, 2131, 92551-1 ####[facility]IA [id number] [place] [id number] [place] ALT [Catalytic activity/Vol] 19 U/L Normal 7-38 [facility] Comment on above: Order Comment: Speci men Type: BLOOD SPECIMENOrdering Facility: External Submitter Address: , , Performed By: #### 2 284-8, 2132-04, ####[facility] LABCLIA [id number] [address] [address] [place] Anion gap [Moles/Vol] 13 mmol/L Normal 9-18 [facility] Comment on above: Order Comment: Speci men Type: BLOOD SPECIMENOrdering Facility: External Submitter Address: , , Performed By: #### 2 284-8, 2132-04, ####[facility]CLIA [id number] [place] [id number] [place] AST [Catalytic activity/Vol] 15 U/L Normal 13-35 [facility] Comment on above: Order Comment: Speci men Type: BLOOD SPECIMENOrdering Facility: External Submitter Address: , , Performed By: #### 2 284-8, 2132-04, ####[facility]CLIA [id number] [place] [address] [place] Bilirubin [Mass/Vol] mg/dL Low 0.2-1.3 [facility] Comment on above: Order Comment: Speci men Type: BLOOD SPECIMENOrdering Facility: External Submitter Address: , , Performed By: #### 2 284-8, 2132-04, ####[facility]CLIA [id number] [address] [address] [place] Calcium [Mass/Vol] 8.8 mg/dL Normal 8.5-10.2 [facility] Comment on above: Order Comment: Speci men Type: BLOOD SPECIMENOrdering Facility: External Submitter Address: , , Performed By: #### 2 284-8, 2132-04, ####[facility]CL[facility] [id number] [address] [address] [place] Chloride [Moles/Vol] 107 mmol/L High 97-105 [facility] Comment on above: Order Comment: Speci men Type: BLOOD SPECIMENOrdering Facility: External Submitter Address: , , Performed By: #### 2 284-8, 9, ####[facility]CLIA [id number] [place] [address] [place] CO2 [Moles/Vol] 20 mmol/L Low 22-30 [facility] Comment on above: Order Comment: Speci men Type: BLOOD SPECIMENOrdering Facility: External Submitter Address: , , Performed By: #### 2 284-8, 9, ####[facility]CLIA [id number] [place] [address] [place] Creatinine [Mass/Vol] 0.78 mg/dL Normal 0.58-0.96 [facility] Comment on above: Order Comment: Speci men Type: BLOOD SPECIMENOrdering Facility: External Submitter Address: , , Performed By: #### 2 284-8, 2132-04, ####[facility]CLIA [id number] [address] [place] Creatinine and Glomerular filtration rate.predicted panel (S/P/Bld) 108 mL/min/1.73m??? Normal >=60 [facility] Comment on above: Order Comment: Talia parsons Type: BLOOD SPECIMENOrdering Facility: External Submitter Address: , , Result Comment: Danae mated Glomerular Filtration Rate (eGFR) is calculated using the 2020 CKD-EPI creatinine equation. This equation utilizes serum creatinine, sex, and age as parameters. The creatinine assay has traceable calibration to isotope dilution-mass spectrometry. Refer to KDIGO guidelines for clinical interpretation. In patients with unstable renal function, e.g. those with acute kidney injury, the eGFR may not accurately reflect actual GFR. Performed By: #### 2 284-8, 9, 81578-7 ####[facility] LABCLIA [id number] [place] [id number] [place] Glucose [Mass/Vol] 108 mg/dL High 74-99 [facility] Comment on above: Order Comment: Talia parsons Type: BLOOD SPECIMENOrdering Facility: External Submitter Address: , , Result Comment: The [place] Diabetes Association (ADA) provides guidance for cutoff values for fasting glucose and random glucose. The ADA defines fasting as no caloric intake for at least 8 hours. Fasting plasma glucose results between 100 to 125 mg/dL indicate increased risk for diabetes (prediabetes). Fasting plasma glucose results greater than or equal to 126 mg/dL meet the criteria for diagnosis of diabetes. In the absence of unequivocal hyperglycemia, results should be confirmed by repeat testing. In a patient with classic symptoms of hyperglycemia or hyperglycemic crisis, random plasma glucose results greater than or equal to 200 mg/dL meet the criteria for diagnosis of diabetes. Reference: Standards of Medical Care in Diabetes 2016, [place] [employer] Association. Diabetes Care. 2016.39(Suppl 1). Performed By: #### 2 284-8, 2132-04, ####[facility] LABCLIA [id number] [place] [address] [place] Potassium [Moles/Vol] 4.1 mmol/L Normal 3.7-5.1 [facility] Comment on above: Order Comment: Talia parsons Type: BLOOD SPECIMENOrdering Facility: External Submitter Address: , , Performed By: #### 2 284-8, 2132-04, ####[facility] LABCLIA [id number] [place] [id number] [place] Protein [Mass/Vol] 6.0 g/dL Low 6.3-8.0 [facility] Comment on above: Order Comment: aTlia parsons Type: BLOOD SPECIMENOrdering Facility: External Submitter Address: , , Performed By: #### 2 284-8, 2132-04, ####[facility]CLIA [id number] [address] [address] [place] Sodium [Moles/Vol] 140 mmol/L Normal 136-144 [facility] Comment on above: Order Comment: Speci men Type: BLOOD SPECIMENOrdering Facility: External Submitter Address: , , Performed By: #### 2 284-8, 9, 53258-7 ####[facility]CLIA [id number] [place] [address] [place] Urea nitrogen [Mass/Vol] 11 mg/dL Normal 7-21 [facility] Comment on above: Order Comment: Speci men Type: BLOOD SPECIMENOrdering Facility: External Submitter Address: , , Performed By: #### 2 284-8, 9, 09845-5 ####[facility] [id number] [place] [address] [place] Ferritin SerPl-mCncon 2022 Ferritin [Mass/Vol] 11.3 ng/mL Low 14.7-205.1 [facility] Comment on above: Order Comment: Speci men Type: BLOOD SPECIMENOrdering Facility: External Submitter Address: , , Performed By: #### 3 016-3, 46169-7, 2276-4, 91725-3 ####[facility] [id number] [place] [address] [place] Folate SerPl-mCncon 07-21-20 23 Folate [Mass/Vol] 4.7 ng/mL Low >4.7 [facility] Comment on above: Order Comment: Speci men Type: BLOOD SPECIMENOrdering Facility: External Submitter Address: , , Performed By: #### 2 284-8, 9, 76927-8 ####[facility]IA [id number] [place] [address] [place] HbA1c (Bld)on 07-21-2023 Average glucose Estimated from glycated hemoglobin (Bld) [Mass/Vol] 114 mg/dL Normal [facility] Comment on above: Order Comment: Speci men Type: BLOOD SPECIMENOrdering Facility: External Submitter Address: , , Result Comment: eAG: (Estimated average glucose) is a calculated value from HgbA1c and is patient admitting representative of the average blood glucose level in the last 2-3 month period. Performed By: #### 5 5454-3 ####[facility]CLIA [id number] [address] [facility] HbA1c (Bld) [Mass fraction] 5.6 % Normal 4.3-5.6 [facility] Comment on above: Order Comment: Talia parsons Type: BLOOD SPECIMENOrdering Facility: External Submitter Address: , , Result Comment: [place] Diabetes Association guidelines indicate that patients with HgbA1c in the range 5.7-6.4% are at increased risk for development of diabetes, and intervention by lifestyle modification may be beneficial. HgbA1c greater or equal to 6.5% is considered diagnostic of diabetes. Performed By: #### 5 5454-3 ####[facility]CLIA [id number] [address] [facility] INSULIN ANTIBODY BLDon 07-21 Insulin Ab Qn (S) <0.4 Normal <0.4 [facility] Comment on above: Order Comment: Talia parsons Type: BLOOD SPECIMENOrdering Facility: External Submitter Address: , , Result Comment: Anti -insulin antibody test is used as an aid in diagnosis and prognosis of autoimmune diabetes mellitus in combination with other tests such as anti-GAD65 and anti-IA-2 antibody. A single negative result cannot rule out autoimmune diabetes mellitus. The test is not reliable in patients who had previously received exogenous insulin. Clinical correlation is required. Performed By: #### I NSLAB ####[facility]CLIA [id number] [address] INSULIN ANTIBODY, QUALITATIVE Negative Normal Negative [facility] Comment on above: Order Comment: Talia parsons Type: BLOOD SPECIMENOrdering Facility: External Submitter Address: , , Performed By: #### I NSLAB ####[facility]CLIA [id number] [address] [place] [facility] Iron and Iron binding capaci ty panelon 07-21-2023 Iron [Mass/Vol] 28 ug/dL Low 41-186 [facility] Comment on above: Order Comment: Speci men Type: BLOOD SPECIMENOrdering Facility: External Submitter Address: , , Performed By: #### 3 016-3, 08467-6, 4, 98281-0 ####[facility]CL[facility] [id number] [address] Iron binding capacity [Mass/Vol] 423 ug/dL High 232-386 [facility] Comment on above: Order Comment: Speci men Type: BLOOD SPECIMENOrdering Facility: External Submitter Address: , , Performed By: #### 3 016-3, 84297-5, 2275-11, 29285-1 ####[facility] [id number] [address] [place] [facility] Iron/TIBC [Molar ratio] 6.6 % Low 15.0-57.0 [facility] Comment on above: Order Comment: Speci men Type: BLOOD SPECIMENOrdering Facility: External Submitter Address: , , Performed By: #### 3 016-3, 40836-0, 2275-11, 89305-8 ####[facility] [id number] [place] [address] [place] Lipid 1996 panelon Cholesterol [Mass/Vol] 176 mg/dL Normal <200 [facility] Comment on above: Order Comment: Speci men Type: BLOOD SPECIMENOrdering Facility: External Submitter Address: , , Result Comment: <200 mg/dL, Desirable 200-239 mg/dL, Borderline high >239 mg/dL, High Performed By: #### 3 016-3, 35744-9, 4, 26769-1 ####[facility] [id number] [place] [id number] [facility] [place] Cholesterol in HDL [Mass/Vol] 33 mg/dL Low >39 [facility] Comment on above: Order Comment: Talia jaqueline Type: BLOOD SPECIMENOrdering Facility: External Submitter Address: , , Result Comment: 40-5 9 mg/dL, Acceptable >59 mg/dL, High: Negative risk factor for coronary heart disease <40 mg/dL, Low: Positive risk factor for coronary heart disease Performed By: #### 3 016-3, 46354-0, 2276-4, 37661-8 ####[facility] LABCLIA [id number] [address] Cholesterol in LDL [Mass/Vol] 112 mg/dL High <100 [facility] Comment on above: Order Comment: Talia jaqueline Type: BLOOD SPECIMENOrdering Facility: External Submitter Address: , , Result Comment: <100 mg/dL, Optimal 100-129 mg/dL, Near optimal/above optimal 130-159 mg/dL, Borderline high 160-189 mg/dL, High >189 mg/dL, Very high Secondary prevention optimal LDL Cholesterol levels are recommended to be < 70 mg/dL Performed By: #### 3 016-3, 88510-2, 6-4, 98275-7 ####[facility] LABCLIA [id number] [address] Cholesterol in LDL/Cholesterol in HDL [Mass ratio] 3.39 {ratio} High <2.54 [facility] Comment on above: Order Comment: Javieresther parsons Type: BLOOD SPECIMENOrdering Facility: External Submitter Address: , , Result Comment: Refazam rence: 1. National Cholesterol Education Program ATP III Guideline At-A-Glance Quick Desk Reference: National Heart, Lung, and Blood [place]. National Institutes of Health. 2001: NIH Publication No. 01-3305. 2. An International Atherosclerosis Society position paper: global recommendations for the management of dyslipidemia: executive summary, Atherosclerosis. 2014: 232(2):410-413. Performed By: #### 3 016-3, 97958-5, 2276-4, 02790-8 ####[facility] LABCLIA [id number] [address] [address] [place] Cholesterol in VLDL [Mass/Vol] 31 mg/dL High <30 [facility] Comment on above: Order Comment: Speci men Type: BLOOD SPECIMENOrdering Facility: External Submitter Address: , , Performed By: #### 3 016-3, 91776-7, 2275-11, 19007-5 ####[facility] LABCLIA [id number] [place] [address] [place] Cholesterol non HDL [Mass/Vol] 143 mg/dL High <130 [facility] Comment on above: Order Comment: Speci men Type: BLOOD SPECIMENOrdering Facility: External Submitter Address: , , Result Comment: <130 mg/dL, Optimal 130-159 mg/dL, Near optimal/above optimal 160-189 mg/dL, Borderline high 190-219 mg/dL, High >219 mg/dL, Very high Secondary prevention optimal non HDL Cholesterol levels are recommended to be <100 mg/dL Performed By: #### 3 016-3, 79590-5, 2275-11, 64140-6 ####[facility] LABCLIA [id number] [place] [address] [place] Cholesterol.total/Chol esterol in HDL [Mass ratio] 5.33 {ratio} High <5.10 [facility] Comment on above: Order Comment: Speci men Type: BLOOD SPECIMENOrdering Facility: External Submitter Address: , , Performed By: #### 3 016-3, 97023-4, 2275-11, 90887-5 ####[facility] LABCLIA [id number] [address] [address] [place] FASTING TIME 8 hrs Normal [facility] Comment on above: Order Comment: Speci men Type: BLOOD SPECIMENOrdering Facility: External Submitter Address: , , Performed By: #### 3 016-3, 88127-5, 2275-11, 55376-7 ####[facility] LABCLIA [id number] [place] [address] [place] Triglyceride [Mass/Vol] 153 mg/dL High <150 [facility] Comment on above: Order Comment: Talia parsons Type: BLOOD SPECIMENOrdering Facility: External Submitter Address: , , Result Comment: <150 mg/dL, Normal 150-199 mg/dL, Borderline high 200-499 mg/dL, High >499 mg/dL, Very high Performed By: #### 3 016-3, 08181-6, 6-4, 57619-7 ####[facility] LABIA [id number] [place] [address] [place] TSH SerPl-aCncon 07-21-2023 TSH Qn 1.250 m[IU]/L Normal 0.270-4.200 [facility] Comment on above: Order Comment: Talia parsons Type: BLOOD SPECIMENOrdering Facility: External Submitter Address: , , Result Comment: If t he patient is , TSH reference range varies by gestational period: First Trimester (weeks 9-12): 0.180-2.990 mIU/L Second Trimester: 0.110-3.980 mIU/L Third Trimester: 0.480-4.710 mIU/L Frederic Black et al. A Practical Approach for the Verifications and Determination of Site- and Trimester-Specific Reference Intervals for Thyroid Function tests in . Thyroid, 2019:29:3:412-420. Jose Juan E, et al. 2017 Guidelines of the [place] Thyroid Association for the Diagnosis and Management of Thyroid Disease during and the . Thyroid, 2017:27:3:315-389. Performed By: #### 3 016-3, 00114-4, 2275-4, 51976-7 ####[facility] LABIA [id number] [place] [id number] [place] Vit B12 SerPl-mCncon 023 Cobalamin (Vitamin B12) [Mass/Vol] 516 pg/mL Normal 232-1245 [facility] Comment on above: Order Comment: Talia parsons Type: BLOOD SPECIMENOrdering Facility: External Submitter Address: , , Performed By: #### 2 284-8, 2132-9, 85768-6 ####[facility] FELICITAS [id number] [place] [id number] [place] CNOVon 06-26-2023 CNOV Office Visit (UCWSTR) KIMBERLY JEONG ([id number]) 1995 F Date Time Provider Department 06/26/23 6:30 PM KEYANA THAKKAR [facility] During your visit today, we recorded the following information about you: Temperature Pulse Respiration Blood pressure 98.7 degrees 95/minute 19/minute 100/66 Weight 81.8 kg Keyana Thakkar APRN.SAMPLE MOUNTER 06/26/2023 6:44 PM Signed Subjective The history is provided by the patient. No educational speech language clinician was used. HPI Kimberly Jeong is a 27 year old female who presents today for CC of right ear pain and congestion, cough for 3 days. She has used sudafed one time and ibuprofen. She denies any exposure to covid, declines testing. BP 100/66 Pulse 95 Temp 37.1 ?C (98.7 ?F) Resp 19 Wt 81.8 kg (180 lb 6.4 oz) LMP 05/09/2023 (Exact Date) SpO2 98% BMI 32.47 kg/m? Social History Tobacco Use Smoking status: Never Smokeless tobacco: Never Vaping Use Vaping Use: Never used Substance Use Topics Alcohol use: Not Currently Drug use: No PAST MEDICAL HISTORY Diagnosis Date Anemia complicating , second trimester 07/04/2020 depression anxiety fracture 11 years old right wrist-fell out of bunk bed H/O delivery, currently Myocarditis (HCC) age 18 months 2006 cleared for Sports [address] Dr. Lay--maribel age 18 yrs PMH - PAST MEDICAL HISTORY OF 06/2007 Right wrist fracture PMH - PAST MEDICAL HISTORY OF normal color vision depression I have confirmed and edited as necessary, the [facility] Review of Systems Constitutional: Positive for malaise/fatigue. Negative for chills and fever. HENT: Positive for congestion and ear pain. Negative for sinus pain and sore throat. Respiratory: Positive for cough. Negative for sputum production, shortness of breath and wheezing. Cardiovascular: Negative for chest pain. Musculoskeletal: Positive for myalgias. Neurological: Positive for headaches. Objective Physical Exam Vitals and nursing note reviewed. HENT: Head: Normocephalic and atraumatic. Right Ear: Ear canal and external ear normal. A middle ear effusion (yellow) is present. Tympanic membrane is erythematous and bulging. Left Ear: Tympanic membrane, ear canal and external ear normal. Nose: Mucosal edema, congestion and rhinorrhea present. Right Sinus: Maxillary sinus tenderness present. No frontal sinus tenderness. Left Sinus: Maxillary sinus tenderness present. No frontal sinus tenderness. Mouth/Throat: Pharynx: Uvula midline. No oropharyngeal exudate or posterior oropharyngeal erythema. Cardiovascular: Rate and Rhythm: Normal rate and regular rhythm. Heart sounds: Normal heart sounds. Pulmonary: Effort: Pulmonary effort is normal. Breath sounds: Normal breath sounds. Lymphadenopathy: Head: Right side of head: No submental, submandibular or tonsillar adenopathy. Left side of head: No submental, submandibular or tonsillar adenopathy. Cervical: No cervical adenopathy. Skin: General: Skin is warm and dry. Neurological: Mental Status: She is alert and oriented to person, place, and time. Psychiatric: Mood and Affect: Affect normal. ASSESSMENT/PLAN: 1. URI with cough and congestion - ICD9: 465.9, ICD10: J06.9 (primary diagnosis) - Discussed viral etiology and rationale for treatment. - Symptomatic treatment with prn analgesia - Supportive care with fluids and rest 2. Acute otitis media, right - ICD9: 382.9, ICD10: H66.91 - Will begin treatment with Amoxicillin for 7 days - Supportive care with plenty of fluids, rest, and analgesia prn. - Follow up in one week if symptoms persist or worsen. - Advised may be viral - AMOXICILLIN 875 MG TABLET 3. Feared condition not demonstrated - ICD9: V65.5, ICD10: Z71.1 Fluconazole as ordered - FLUCONAZOLE 150 MG TABLET Diagnosis and treatment plan were discussed and questions were answered to the patient's satisfaction. Pt acknowledged understanding of concepts and follow up plan. Specific signs and symptoms that would indicate the need for higher level of care were discussed in detail warranting prompt ER evaluation. Keyana Thakkar APRN.SAMPLE MOUNTER Allergies As of Date: 06/26/2023 Noted Allergy Reaction POLLEN 12/05/2011 14 - Other: See Comments Comments: Nasal congestion and drainage Date Reviewed: 06/26/2023 Reviewed by: Rox Cunningham MA - Fully Assessed Reason for Visit: Ear Pain [817] Cmt: Right ear pain x 1 day Cough, congestion x 3 days Primary Visit Diagnosis:URI with cough and congestion [J06.9] Other Visit Diagnoses:Acute otitis media, right [H66.91] Feared condition not demonstrated [Z71.1] Order(s):amoxicillin (AMOXIL) 875 mg tabletTake 1 tablet by mouth two times a day for 7 days.Disp: 14 tabletRfl: 0 fluconazole (DIFLUCAN) 150 mg tabletTake 1 tablet by mouth one time only for 1 dose. Repeat in 3 days as needed.Disp: 2 tabletRfl: 0 Pres (more content not included)... Normal [facility] UA DIP, URINE (POC)on 2022 BILIRUBIN UA (POCT) Negative Negative [facility] CLARITY UA (POCT) Clear [facility] COLOR UA (POCT) Yellow [facility] GLUCOSE UA (POCT) Negative Negative mg/dL [facility] Hemoglobin Ql (U) Negative Negative [facility] KETONE UA (POCT) Negative Negative mg/dL [facility] LEUKOCYTES UA (POCT) Negative Negative [facility] NITRITE UA (POCT) Negative Negative [facility] PH UA (POCT) 5.5 4.5 - 8.0 [facility] Protein Ql (U) Negative Negative mg/dL [facility] SPECIFIC GRAVITY UA (POCT) >=1.030 1.005 - 1.030 [facility] UROBILINOGEN UA (POCT) 0.2 E.U./dL Normal E.U./ dL [facility] No Panel Informationon 04-17 IMPRESSION: Findings suggestive of a nondisplaced fracture involving the inferior tip of the medial malleolus. Supervisor Smoke Control: DONNA Transcribe Date/Time: Apr 17 2023 6:17P Dictated by : SERENITY ZHANG MD This examination was interpreted and the report reviewed and electronically signed by: SERENITY ZHANG MD on Apr 17 2023 6:33PM [facility] DIVISION OF RADIOLOGY Radiology Study observation (narrative) [facility] No Panel InformationOrdered By: Ccf Provider on 04-17-2023 [facility] XR Ankle - right AP and Late ral and obliqueon 04-17-2023 * * *Final Report* * * DATE OF EXAM: Apr 17 2023 6:05PM WOX 5297 - XR ANKLE 3V AP/LAT/OBL RT / PROCEDURE REASON: Injury of right lower extremity, initial encounter * * * * Physician Interpretation * * * * RIGHT FOOT X-RAY SERIES HISTORY: Injury of right lower extremity, initial encounter TECHNIQUE: AP, lateral and oblique views. COMPARISON: None available. RESULT: No fracture, dislocation or destructive changes. Joint spaces and articular surfaces are preserved. RIGHT ANKLE X-RAY SERIES HISTORY: Injury of right lower extremity, initial encounter TECHNIQUE: AP, lateral and oblique views. COMPARISON: None available. RESULT: There are findings suspicious for a small hairline fracture involving the inferior tip of the of the medial malleolus. No other fractures are identified. No evidence of dislocation. Soft tissue swelling is noted adjacent to the medial and lateral malleoli. Joint spaces appear unremarkable. [facility] DIVISION OF RADIOLOGY Provider, [facility] [place] - 04/17/2023 * * *Final Report* * * DATE OF EXAM: Apr 17 2023 6:05PM WOX 5297 - XR ANKLE 3V AP/LAT/OBL RT / PROCEDURE REASON: Injury of right lower extremity, initial encounter * * * * Physician Interpretation * * * * RIGHT FOOT X-RAY SERIES HISTORY: Injury of right lower extremity, initial encounter TECHNIQUE: AP, lateral and oblique views. COMPARISON: None available. RESULT: No fracture, dislocation or destructive changes. Joint spaces and articular surfaces are preserved. RIGHT ANKLE X-RAY SERIES HISTORY: Injury of right lower extremity, initial encounter TECHNIQUE: AP, lateral and oblique views. COMPARISON: None available. RESULT: There are findings suspicious for a small hairline fracture involving the inferior tip of the of the medial malleolus. No other fractures are identified. No evidence of dislocation. Soft tissue swelling is noted adjacent to the medial and lateral malleoli. Joint spaces appear unremarkable. COMBINED IMPRESSION IMPRESSION: Findings suggestive of a nondisplaced fracture involving the inferior tip of the medial malleolus. Supervisor Smoke Control: DONNA Transcribe Date/Time: Apr 17 2023 6:17P Dictated by : SERENITY ZHANG MD This examination was interpreted and the report reviewed and electronically signed by: SERENITY ZHANG MD on Apr 17 2023 6:33PM [facility] XR Foot - right AP and Later al and obliqueon 04-17-2023 * * *Final Report* * * DATE OF EXAM: Apr 17 2023 6:05PM WOX 5337 - XR FOOT 3V AP/LAT/OBL RT / PROCEDURE REASON: Injury of right lower extremity, initial encounter * * * * Physician Interpretation * * * * RIGHT FOOT X-RAY SERIES HISTORY: Injury of right lower extremity, initial encounter TECHNIQUE: AP, lateral and oblique views. COMPARISON: None available. RESULT: No fracture, dislocation or destructive changes. Joint spaces and articular surfaces are preserved. RIGHT ANKLE X-RAY SERIES HISTORY: Injury of right lower extremity, initial encounter TECHNIQUE: AP, lateral and oblique views. COMPARISON: None available. RESULT: There are findings suspicious for a small hairline fracture involving the inferior tip of the of the medial malleolus. No other fractures are identified. No evidence of dislocation. Soft tissue swelling is noted adjacent to the medial and lateral malleoli. Joint spaces appear unremarkable. [facility] DIVISION OF RADIOLOGY Provider, [facility] [place] - 04/17/2023 * * *Final Report* * * DATE OF EXAM: Apr 17 2023 6:05PM WOX 5337 - XR FOOT 3V AP/LAT/OBL RT / PROCEDURE REASON: Injury of right lower extremity, initial encounter * * * * Physician Interpretation * * * * RIGHT FOOT X-RAY SERIES HISTORY: Injury of right lower extremity, initial encounter TECHNIQUE: AP, lateral and oblique views. COMPARISON: None available. RESULT: No fracture, dislocation or destructive changes. Joint spaces and articular surfaces are preserved. RIGHT ANKLE X-RAY SERIES HISTORY: Injury of right lower extremity, initial encounter TECHNIQUE: AP, lateral and oblique views. COMPARISON: None available. RESULT: There are findings suspicious for a small hairline fracture involving the inferior tip of the of the medial malleolus. No other fractures are identified. No evidence of dislocation. Soft tissue swelling is noted adjacent to the medial and lateral malleoli. Joint spaces appear unremarkable. COMBINED IMPRESSION IMPRESSION: Findings suggestive of a nondisplaced fracture involving the inferior tip of the medial malleolus. Supervisor Smoke Control: DONNA Transcribe Date/Time: Apr 17 2023 6:17P Dictated by : SERENITY ZHANG MD This examination was interpreted and the report reviewed and electronically signed by: SERENITY ZHANG MD on Apr 17 2023 6:33PM EST [facility] STREP A MOLECULAR (POC)on Procedural Control Valid [facility] Strep A (POCT) Negative Negative [facility] HCG QUAL UR B/Oon 02-21-2022 status Negative neg - pos [facility] Quality Check Yes [facility] URINE OB DIP B/Oon 2 Glucose Ql (U) Negative Neg mg/dL [facility] Protein.monoclonal (U) [Mass/Vol] Negative Neg mg/dL [facility] UA DIP, URINE (POC)on 2021 BILIRUBIN UA (POCT) Negative Negative [facility] CLARITY UA (POCT) Slightly Cloudy [facility] COLOR UA (POCT) Yellow [facility] GLUCOSE UA (POCT) Negative Negative mg/dL [facility] HEMOGLOBIN/BLOOD UA (POCT) Trace-intact Abnormal Negative [facility] KETONE UA (POCT) Negative Negative mg/dL [facility] LEUKOCYTES UA (POCT) Trace Abnormal Negative [facility] NITRITE UA (POCT) Negative Negative [facility] PH UA (POCT) 7.0 4.5 - 8.0 [facility] Protein Ql (U) Negative Negative mg/dL [facility] SPECIFIC GRAVITY UA (POCT) 1.015 1.005 - 1.030 [facility] UROBILINOGEN UA (POCT) 0.2 E.U./dL Normal E.U./ dL [facility] OBSTETRIC ULTRASOUND WHIon 0 12-17-2021 [facility] URINE OB DIP B/Oon 2 Glucose Ql (U) Negative Neg mg/dL [facility] Protein.monoclonal (U) [Mass/Vol] 30 mg/dL Neg mg/dL [facility] URINE OB DIP B/Oon 2 Glucose Ql (U) Negative Neg mg/dL [facility] Protein.monoclonal (U) [Mass/Vol] Negative Neg mg/dL [facility] URINE OB DIP B/Oon 2 Glucose Ql (U) Negative Neg mg/dL [facility] Protein.monoclonal (U) [Mass/Vol] trace Neg mg/dL [facility] CHROM KAYLA CHORIONIon 07-19 EER CHORIONIC VILLUS View results in Scanned Documents link when available. Normal [facility] Comment on above: Order Comment: Speci men Type: CHORIONIC VILLI SAMPLE Performed By: #### C VCYTO #### [facility] CLIA [id number] [address] Karyotype Nom ([facility]) View results in Scanned Documents link when available. Normal [facility] Comment on above: Order Comment: Speci men Type: CHORIONIC VILLI SAMPLE Performed By: #### C VCYTO #### [facility] CLIA [id number] [address] [facility] CNOVon 07-19-2021 CNOV Office Visit (AGMFM) ADENIKEKIMBERLY Abram ([id number]) 1995 F Date Time Provider Department 07/19/21 11:15 AM US RM1 GIN CLERK AG M AGMFM During your visit today, we recorded the following information about you: Boubacar Shultz DO 07/20/2021 10:20 AM Signed Patient presents for CVS in the setting of an increased NT. Risks, benefits, and alternatives were reviewed. Informed consent was signed. Kimberly is Rh positive. See US reports for procedure details. DO Boubacar Judge DO 07/20/2021 10:20 AM Signed - Please call the office before going to the hospital. - If you are , go to the ER at the hospital main campus. Do not go to the outlying ER?s ([facility], [facility] or [place]). - If you need to go to an ER and cannot or will not go downtown, please use one of [facility]?s ER?s (not [facility], [place] or [place]). Referring Provider: BOUBACAR SHULTZ [[id number]] Allergies As of Date: 07/19/2021 Noted Allergy Reaction POLLEN 12/05/2011 14 - Other: See Comments Comments: Nasal congestion and drainage Date Reviewed: 07/17/2021 Reviewed by: Alla Skaggs Ma - Fully Assessed Reason for Visit: US [4057] Cmt: CVS Primary Visit Diagnosis:Increased nuchal translucency space on ultrasound [O28.3] Other Visit Diagnosis:11 weeks gestation of [Z3A.11] Order(s):[facility] US WHI [[id number]] Order #: [id number]: 1 FISH, INSIGHT KAYLA [SQISIGHT] Order #: [id number] FUTURE CHROM KAYLA CHORIONI [SQCVCYTO] Order #: [id number] FUTURE Prescriptions as of 07/20/2021 - ondansetron orally disintegrating (ZOFRAN ODT) 4 mg disintegrating tablet Take 1 tablet by mouth every 8 hours as needed for nausea/vomiting. - FLUoxetine (PROZAC) 20 mg capsule Take 1 capsule by mouth once daily. 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] 02/21/2020 Nausea and vomiting in [O21.9] 02/21/2020 08/22/2020 History of depression [Z86.59] 02/21/2020 UTI (urinary tract infection) in , ant*02/25/2020 08/22/2020 Tetrahydrocannabinol (THC) use disorder, mild, *02/29/2020 Encounter for supervision of normal first pregn*06/06/2020 08/22/2020 Elevated glucose [R73.09] 07/04/2020 08/22/2020 Anemia complicating , second trimester*07/04/2020 08/22/2020 Recurrent major depressive disorder, in partial*11/03/2020 Short interval between pregnancies affecting pr*06/12/2021 H/O delivery, currently [O09.8*06/12/2021 Family history of spina bifida [Z82.79] 06/12/2021 Thickening of nuchal fold [O35.1XX0] 07/17/2021 Other instructions from your clinician: - Please call the office before going to the hospital. - If you are , go to the ER at the [facility]. Do not go to the outlying ER?s ([facility] or [place]). - If you need to go to an ER and cannot or will not go downtown, please use one of [facility]?s ER?s (not [facility], [place] or [facility]). Encounter Status:Closed by BOUBACAR SHULTZ on 07/20/21 [facility] FISH, INSIGHT ANALYon 2020 FISH, INSIGHT KAYLA View results in Scanned Documents link when available. [facility] Comment on above: Order Comment: Speci men Type: AMNIOTIC FLUID SPECIMEN Performed By: #### I SIGHT #### [facility] CLIA [id number] [facility] DESK [address] OF [facility] SEND OUT TEST 1on 07-19 REFERRAL LAB 1 [facility] Comment on above: Order Comment: Order ing Facility: [facility] Address: [address] [place] [address] Result Comment: Zulma ected result: Previously reported as [employer] on 08/10/2021 at 2:20 PM EST. Performed By: #### W ILD13 #### [facility] CLIA [id number] [facility] [employer] [id number] [place] TEST 1 TC 477, REVEAL SNP MICROARRAY, [facility] Normal [facility] Comment on above: Order Comment: Order ing Facility: [facility] Address: [address] [place] [address] Result Comment: Zulma ected result: Previously reported as Chromosome Analysis on 08/10/2021 at 2:20 PM EST. Performed By: #### W ILD13 #### [facility] CLIA [id number] [address] [place] [address] TEST RESULTS 1 Results sent to the physicians office [facility] Comment on above: Order Comment: Order ing Facility: [facility] Address: [address] [place] [address] Result Comment: Zulma ected result: Previously reported as See detailed report in Epic (Scanned Documents/Scanned Lab 07-30-2021) on 08/10/2021 at 2:20 PM EST. Performed By: #### W ILD13 #### [facility] CLIA [id number] [facility] [address]K [address] Vital Signs Date Time Vital Sign Value Performing Clinician Stefany damian 06-09-2024 08:32-0400 Body mass index (BMI) [Ratio] 32.37 kg/m2 Sami Vora MD Work Phone: [facility] 06-09-2024 08:32-0400 Body weight 80.29 kg Sami Vora MD Work Phone: [facility] 06-09-2024 08:32-0400 Diastolic blood pressure 69 mm[Hg] Sami Vora MD Work Phone: [facility] 06-09-2024 08:32-0400 Heart rate 83 /min Sami Vora MD Work Phone: [facility] 06-09-2024 08:32-0400 Respiratory rate 16 /min Sami Vora MD Work Phone: [facility] 06-09-2024 08:32-0400 SaO2% (BldA) [Mass fraction] 100 % Sami Vora MD Work Phone: [facility] 06-09-2024 08:32-0400 Systolic blood pressure 113 mm[Hg] Sami Vora MD Work Phone: [facility] 05-26-2024 09:38-0400 Body height 157.5 cm Sami Vora MD Work Phone: [facility] 05-26-2024 09:38-0400 Body mass index (BMI) [Ratio] 32.56 kg/m2 Sami Vora MD Work Phone: [facility] 05-26-2024 09:38-0400 Body weight 80.74 kg Sami Vora MD Work Phone: [facility] 05-26-2024 09:38-0400 Diastolic blood pressure 65 mm[Hg] Sami Vora MD Work Phone: [facility] 05-26-2024 09:38-0400 Heart rate 91 /min Sami Vora MD Work Phone: [facility] 05-26-2024 09:38-0400 Respiratory rate 16 /min Sami Vora MD Work Phone: [facility] 05-26-2024 09:38-0400 SaO2% (BldA) [Mass fraction] 99 % Sami Vora MD Work Phone: [facility] 05-26-2024 09:38-0400 Systolic blood pressure 108 mm[Hg] Sami Vora MD Work Phone: [facility] 05-21-2024 15:24-0400 Body mass index (BMI) [Ratio] 32.56 kg/m2 Rosario Garcia ROLLED MATERIALS WORKER.CNM Work Phone: [facility] 05-21-2024 15:24-0400 Body weight 80.74 kg Rosario Garcia ROLLED MATERIALS WORKER.CNM Work Phone: [facility] 05-21-2024 15:24-0400 Diastolic blood pressure 58 mm[Hg] Rosario Garcia ROLLED MATERIALS WORKER.CNM Work Phone: [facility] 05-21-2024 15:24-0400 Systolic blood pressure 110 mm[Hg] Rosario Garcia ROLLED MATERIALS WORKER.CNM Work Phone: [facility] 05-13-2024 15:30-0400 Body mass index (BMI) [Ratio] 32.41 kg/m2 Bibiana Weathers MD Work Phone: [facility] 05-13-2024 15:30-0400 Body weight 80.38 kg Bibiana Weathers MD Work Phone: [facility] 05-13-2024 15:30-0400 Diastolic blood pressure 60 mm[Hg] Bibiana Weathers MD Work Phone: [facility] 05-13-2024 15:30-0400 Systolic blood pressure 100 mm[Hg] Bibiana Weathers MD Work Phone: [facility] 03-09-2024 09:49-0400 Body mass index (BMI) [Ratio] 31.28 kg/m2 Yobani Darby MD Work Phone: [facility] 03-09-2024 09:49-0400 Body weight 77.56 kg Yobani Darby MD Work Phone: [facility] 03-09-2024 09:49-0400 Diastolic blood pressure 68 mm[Hg] Yobani Darby MD Work Phone: [facility] 03-09-2024 09:49-0400 Systolic blood pressure 112 mm[Hg] Yobani Darby MD Work Phone: [facility] 03-01-2024 14:05-0400 Body mass index (BMI) [Ratio] 31.61 kg/m2 Surjit Aguirre MD Work Phone: [facility] 03-01-2024 14:05-0400 Body weight 78.38 kg Surjit Aguirre MD Work Phone: [facility] 03-01-2024 14:05-0400 Diastolic blood pressure 70 mm[Hg] Surjit Aguirre MD Work Phone: [facility] 03-01-2024 14:05-0400 Heart rate 98 /min Surjit Aguirre MD Work Phone: [facility] 03-01-2024 14:05-0400 Respiratory rate 18 /min Surjit Aguirre MD Work Phone: [facility] 03-01-2024 14:05-0400 Systolic blood pressure 118 mm[Hg] Surjit Aguirre MD Work Phone: [facility] 02-17-2024 09:37-0400 Body mass index (BMI) [Ratio] 32.26 kg/m2 Vijay Gordon MD Work Phone: [facility] 02-17-2024 09:37-0400 Body weight 80.02 kg Vijay Gordon MD Work Phone: [facility] 02-17-2024 09:37-0400 Diastolic blood pressure 70 mm[Hg] Vijay Gordon MD Work Phone: [facility] 02-17-2024 09:37-0400 Systolic blood pressure 112 mm[Hg] Vijay Gordon MD Work Phone: [facility] 02-04-2024 13:44-0400 Body height 157.5 cm Danii Haury ROLLED MATERIALS WORKER.SAMPLE MOUNTER Work Phone: [facility] 02-04-2024 13:44-0400 Body mass index (BMI) [Ratio] 32.56 kg/m2 Danii Haury ROLLED MATERIALS WORKER.SAMPLE MOUNTER Work Phone: [facility] 02-04-2024 13:44-0400 Body weight 80.74 kg Danii Haury ROLLED MATERIALS WORKER.SAMPLE MOUNTER Work Phone: [facility] 02-04-2024 13:44-0400 Diastolic blood pressure 62 mm[Hg] Danii Haury ROLLED MATERIALS WORKER.SAMPLE MOUNTER Work Phone: [facility] 02-04-2024 13:44-0400 Heart rate 72 /min Danii Haury ROLLED MATERIALS WORKER.SAMPLE MOUNTER Work Phone: [facility] 02-04-2024 13:44-0400 Respiratory rate 12 /min Danii Weinberg ROLLED MATERIALS WORKER.SAMPLE MOUNTER Work Phone: [facility] 02-04-2024 13:44-0400 SaO2% (BldA) [Mass fraction] 98 % Danii Cyrusdeepti ROLLED MATERIALS WORKER.SAMPLE MOUNTER Work Phone: [facility] 02-04-2024 13:44-0400 Systolic blood pressure 108 mm[Hg] Danii Weinberg ROLLED MATERIALS WORKER.SAMPLE MOUNTER Work Phone: [facility] 12-25-2023 15:50-0400 Body mass index (BMI) [Ratio] 33.66 kg/m2 Gisella John Day ROLLED MATERIALS WORKER.SAMPLE MOUNTER Work Phone: [facility] 12-25-2023 15:50-0400 Body weight 84.82 kg Gisella Susi ROLLED MATERIALS WORKER.SAMPLE MOUNTER Work Phone: [facility] 12-25-2023 15:50-0400 Diastolic blood pressure 62 mm[Hg] Gisella Susi ROLLED MATERIALS WORKER.SAMPLE MOUNTER Work Phone: [facility] 12-25-2023 15:50-0400 Systolic blood pressure 110 mm[Hg] Gisella John Day ROLLED MATERIALS WORKER.SAMPLE MOUNTER Work Phone: [facility] 10-20-2023 18:05-0500 Body weight 79.47 kg Surjit Aguirre MD Work Phone: [facility] 10-20-2023 18:05-0500 Diastolic blood pressure 68 mm[Hg] Surjit Aguirre MD Work Phone: [facility] 10-20-2023 18:05-0500 Heart rate 74 /min Surjit Aguirre MD Work Phone: [facility] 10-20-2023 18:05-0500 Respiratory rate 16 /min Surjit Aguirre MD Work Phone: [facility] 10-20-2023 18:05-0500 Systolic blood pressure 100 mm[Hg] Surjit Aguirre MD Work Phone: [facility] 06-26-2023 18:30-0500 Body temperature 98.71 [degF] Keyana Spraguek ROLLED MATERIALS WORKER.SAMPLE MOUNTER Work Phone: [facility] 06-26-2023 18:30-0500 Body weight 81.83 kg Keyana Spraguek ROLLED MATERIALS WORKER.SAMPLE MOUNTER Work Phone: [facility] 06-26-2023 18:30-0500 Diastolic blood pressure 66 mm[Hg] Keyana Ariane ROLLED MATERIALS WORKER.SAMPLE MOUNTER Work Phone: [facility] 06-26-2023 18:30-0500 Heart rate 95 /min Keyana Ariane ROLLED MATERIALS WORKER.SAMPLE MOUNTER Work Phone: [facility] 06-26-2023 18:30-0500 Respiratory rate 19 /min Keyana Ariane ROLLED MATERIALS WORKER.SAMPLE MOUNTER Work Phone: [facility] 06-26-2023 18:30-0500 SaO2% (BldA) [Mass fraction] 98 % Keyana Spraguek ROLLED MATERIALS WORKER.SAMPLE MOUNTER Work Phone: [facility] 06-26-2023 18:30-0500 Systolic blood pressure 100 mm[Hg] Keyana Ariane ROLLED MATERIALS WORKER.SAMPLE MOUNTER Work Phone: [facility] 06-03-2023 07:06-0400 Body height 158.8 cm Lauryn Anderson APRN.SAMPLE MOUNTER Work Phone: [facility] 06-03-2023 07:06-0400 Body weight 79.83 kg Lauryn Anderson ROLLED MATERIALS WORKER.SAMPLE MOUNTER Work Phone: [facility] 06-03-2023 07:06-0400 Diastolic blood pressure 64 mm[Hg] Lauryn Anderson ROLLED MATERIALS WORKER.SAMPLE MOUNTER Work Phone: [facility] 06-03-2023 07:06-0400 Systolic blood pressure 110 mm[Hg] Lauryn Anderson ROLLED MATERIALS WORKER.SAMPLE MOUNTER Work Phone: [facility] 04-17-2023 17:20-0400 Body temperature 98.8 [degF] Duane Higuera ROLLED MATERIALS WORKER.SAMPLE MOUNTER Work Phone: [facility] 04-17-2023 17:20-0400 Body weight 81.01 kg Duane Higuera ROLLED MATERIALS WORKER.SAMPLE MOUNTER Work Phone: [facility] 04-17-2023 17:20-0400 Diastolic blood pressure 68 mm[Hg] Duane Higuera ROLLED MATERIALS WORKER.SAMPLE MOUNTER Work Phone: [facility] 04-17-2023 17:20-0400 Heart rate 78 /min Duane Higuera ROLLED MATERIALS WORKER.SAMPLE MOUNTER Work Phone: [facility] 04-17-2023 17:20-0400 Respiratory rate 18 /min Duane Higuera ROLLED MATERIALS WORKER.SAMPLE MOUNTER Work Phone: [facility] 04-17-2023 17:20-0400 SaO2% (BldA) [Mass fraction] 99 % Duane Higuera ROLLED MATERIALS WORKER.SAMPLE MOUNTER Work Phone: [facility] 04-17-2023 17:20-0400 Systolic blood pressure 112 mm[Hg] Duane Higuera ROLLED MATERIALS WORKER.SAMPLE MOUNTER Work Phone: [facility] 09-02-2022 15:33-0500 Body weight 74.12 kg Surjit Aguirre MD Work Phone: [facility] 09-02-2022 15:33-0500 Diastolic blood pressure 70 mm[Hg] Surjit Aguirre MD Work Phone: [facility] 09-02-2022 15:33-0500 Heart rate 100 /min Surjit Aguirre MD Work Phone: [facility] 09-02-2022 15:33-0500 Respiratory rate 16 /min Surjit Aguirre MD Work Phone: [facility] 09-02-2022 15:33-0500 Systolic blood pressure 118 mm[Hg] Surjit Aguirre MD Work Phone: [facility] 08-28-2022 16:14-0500 Body temperature 99.1 [degF] Tramaine Rosales MD Work Phone: [facility] 08-28-2022 16:14-0500 Body weight 69.85 kg Tramaine Rosales MD Work Phone: [facility] 08-28-2022 16:14-0500 Diastolic blood pressure 82 mm[Hg] Tramaine Rosales MD Work Phone: [facility] 08-28-2022 16:14-0500 Heart rate 81 /min Tramaine Rosales MD Work Phone: [facility] 08-28-2022 16:14-0500 Respiratory rate 16 /min Tramaine Rosales MD Work Phone: [facility] 08-28-2022 16:14-0500 SaO2% (BldA) [Mass fraction] 97 % Tramaine Rosales MD Work Phone: [facility] 08-28-2022 16:14-0500 Systolic blood pressure 120 mm[Hg] Tramaine Rosales MD Work Phone: [facility] 08-19-2022 08:00-0500 Body temperature 97.5 [degF] Kanwal Wiggins ROLLED MATERIALS WORKER.SAMPLE MOUNTER Work Phone: [facility] 08-19-2022 08:00-0500 Body weight 69.85 kg Kanwal Wiggins ROLLED MATERIALS WORKER.SAMPLE MOUNTER Work Phone: [facility] 08-19-2022 08:00-0500 Diastolic blood pressure 82 mm[Hg] Kanwal Wiggins ROLLED MATERIALS WORKER.SAMPLE MOUNTER Work Phone: [facility] 08-19-2022 08:00-0500 Heart rate 72 /min Kanwal Wiggins ROLLED MATERIALS WORKER.SAMPLE MOUNTER Work Phone: [facility] 08-19-2022 08:00-0500 Respiratory rate 18 /min Kanwal Wiggins ROLLED MATERIALS WORKER.SAMPLE MOUNTER Work Phone: [facility] 08-19-2022 08:00-0500 SaO2% (BldA) [Mass fraction] 98 % Kanwal Wiggins ROLLED MATERIALS WORKER.SAMPLE MOUNTER Work Phone: [facility] 08-19-2022 08:00-0500 Systolic blood pressure 124 mm[Hg] Kanwal Wiggins ROLLED MATERIALS WORKER.SAMPLE MOUNTER Work Phone: [facility] 05-16-2022 10:00-0400 Body weight 72.58 kg Nurse Wstr Work Phone: [facility] 05-16-2022 10:00-0400 Diastolic blood pressure 64 mm[Hg] Nurse Wstr Work Phone: [facility] 05-16-2022 10:00-0400 Systolic blood pressure 116 mm[Hg] Nurse Wstr Work Phone: [facility] 03-22-2022 10:45-0400 Body weight 68.95 kg Rosario Garcia ROLLED MATERIALS WORKER.CNM Work Phone: [facility] 03-22-2022 10:45-0400 Diastolic blood pressure 64 mm[Hg] Rosario Plotts ROLLED MATERIALS WORKER.CNM Work Phone: [facility] 03-22-2022 10:45-0400 Systolic blood pressure 118 mm[Hg] Rosario Sandhuts ROLLED MATERIALS WORKER.CNM Work Phone: [facility] 03-01-2022 09:21-0400 Body temperature 97 [degF] Surjit Aguirre MD Work Phone: [facility] 03-01-2022 09:21-0400 Body weight 66.22 kg Surjit Aguirre MD Work Phone: [facility] 03-01-2022 09:21-0400 Diastolic blood pressure 70 mm[Hg] Surjit Aguirre MD Work Phone: [facility] 03-01-2022 09:21-0400 Heart rate 74 /min Surjit Aguirre MD Work Phone: [facility] 03-01-2022 09:21-0400 Respiratory rate 16 /min Surjit Aguirre MD Work Phone: [facility] 03-01-2022 09:21-0400 Systolic blood pressure 122 mm[Hg] Surjit Aguirre MD Work Phone: [facility] 02-21-2022 09:12-0400 Body weight 66.22 kg Nurse Wstr Work Phone: [facility] 02-21-2022 09:12-0400 Diastolic blood pressure 50 mm[Hg] Nurse Wstr Work Phone: [facility] 02-21-2022 09:12-0400 Systolic blood pressure 92 mm[Hg] Nurse Wstr Work Phone: [facility] 02-19-2022 15:27-0400 Body weight 68.04 kg Rosario Garcia ROLLED MATERIALS WORKER.CNM Work Phone: [facility] 02-19-2022 15:27-0400 Diastolic blood pressure 60 mm[Hg] Rosario Plotts ROLLED MATERIALS WORKER.CNM Work Phone: [facility] 02-19-2022 15:27-0400 Systolic blood pressure 108 mm[Hg] Rosario Plotts ROLLED MATERIALS WORKER.CNM Work Phone: [facility] 01-18-2022 14:56-0400 Body weight 58.51 kg Kanwal Chow ROLLED MATERIALS WORKER.CNM Work Phone: [facility] 01-18-2022 14:56-0400 Diastolic blood pressure 58 mm[Hg] Kanwal Chow ROLLED MATERIALS WORKER.CNM Work Phone: [facility] 01-18-2022 14:56-0400 Systolic blood pressure 98 mm[Hg] Kanwal Chow ROLLED MATERIALS WORKER.CNM Work Phone: [facility] 12-31-2021 14:29-0400 Body weight 72.12 kg Kanwal Chow ROLLED MATERIALS WORKER.CNM Work Phone: [facility] 12-31-2021 14:29-0400 Diastolic blood pressure 60 mm[Hg] Kanwal Chow ROLLED MATERIALS WORKER.CNM Work Phone: [facility] 12-31-2021 14:29-0400 Systolic blood pressure 112 mm[Hg] Kanwal Chow ROLLED MATERIALS WORKER.CNM Work Phone: [facility] 12-27-2021 14:32-0400 Body weight 71.22 kg Rosario Garcia ROLLED MATERIALS WORKER.CNM Work Phone: [facility] 12-27-2021 14:32-0400 Diastolic blood pressure 62 mm[Hg] Rosario Plotts ROLLED MATERIALS WORKER.CNM Work Phone: [facility] 12-27-2021 14:32-0400 Systolic blood pressure 110 mm[Hg] Rosario Plotts ROLLED MATERIALS WORKER.CNM Work Phone: [facility] 12-25-2021 14:22-0400 Body temperature 97.39 [degF] Treatment Wstr Work Phone: [facility] 12-25-2021 14:22-0400 Diastolic blood pressure 64 mm[Hg] Treatment Wstr Work Phone: [facility] 12-25-2021 14:22-0400 Heart rate 77 /min Treatment Wstr Work Phone: [facility] 12-25-2021 14:22-0400 Systolic blood pressure 114 mm[Hg] Treatment Wstr Work Phone: [facility] 12-17-2021 13:45-0400 Body weight 69.85 kg Rosario Plotts ROLLED MATERIALS WORKER.CNM Work Phone: [facility] 12-17-2021 13:45-0400 Diastolic blood pressure 60 mm[Hg] Rosario Plotts ROLLED MATERIALS WORKER.CNM Work Phone: [facility] 12-17-2021 13:45-0400 Systolic blood pressure 100 mm[Hg] Rosario Plotts ROLLED MATERIALS WORKER.CNM Work Phone: [facility] 12-04-2021 14:38-0400 Body weight 69.31 kg Rosario Plotts ROLLED MATERIALS WORKER.CNM Work Phone: [facility] 12-04-2021 14:38-0400 Diastolic blood pressure 60 mm[Hg] Rosario Plotts ROLLED MATERIALS WORKER.CNM Work Phone: [facility] 12-04-2021 14:38-0400 Systolic blood pressure 94 mm[Hg] Rosario Plotts ROLLED MATERIALS WORKER.CNM Work Phone: [facility] 11-13-2021 10:26-0400 Body weight 67.22 kg Yobani Darby MD Work Phone: [facility] 11-13-2021 10:26-0400 Diastolic blood pressure 60 mm[Hg] Yobani Darby MD Work Phone: [facility] 11-13-2021 10:26-0400 Systolic blood pressure 98 mm[Hg] Yobani Darby MD Work Phone: [facility] Encounters Encounter Date Encounter Type Care Provider Facility Start: 06-09-2024 End: 06-09-2024 Patient encounter procedure Sami Vora MD Work Phone: Cardiology Comment on above: Sinus tachycardia [R 00.0] (Primary Dx); Palpitations [R00.2]; , unspecified gestational age [Z34.90] Start: 06-07-2024 ambulatory SAMI VORA Facility:[facility] Start: 06-07-2024 End: 06-07-2024 Subsequent hospital visit by physician Amna [facility] Work Phone: Cardiology Lab Comment on above: Palpitations [R00.2] Start: 05-27-2024 End: 05-27-2024 ambulatory [facility] Facility:[facility] Start: 05-27-2024 End: 05-27-2024 Patient encounter procedure [employer] Engineering Design Manager [facility] Comment on above: History of d radha, currently (Primary Dx); 24 weeks gestation of Start: 05-26-2024 End: 05-26-2024 Patient encounter procedure Sami Vora MD Work Phone: Cardiology Comment on above: Palpitations (Primar y Dx); 23 weeks gestation of [Z3A.23] Start: 05-26-2024 End: 05-26-2024 ambulatory [facility] Work Phone: Cardiology Comment on above: Holter Monitor Appli cation (48 HR) Start: 05-24-2024 End: 05-24-2024 Orders Only Sami Vora MD Work Phone: Cardiology Comment on above: Heart palpitations ( Primary Dx) Start: 05-21-2024 End: 05-21-2024 ambulatory [facility] Facility:[facility] Start: 05-21-2024 End: 05-21-2024 Patient encounter procedure Rosario Garcia LAURELM Work Phone: OB/Gynecology Comment on above: High-risk in second trimester (Primary Dx); 23 weeks gestation of ; Heart palpitations; Dizziness Start: 05-20-2024 End: 05-20-2024 ambulatory Danii Weinberg APRN.SAMPLE MOUNTER Work Phone: OB/Gynecology Comment on above: Heart palpitations w hen laying flat or sitting, feeling like my sugar is low Start: 05-17-2024 End: 05-19-2024 Telephone encounter Danii Weinberg APRN.SAMPLE MOUNTER Work Phone: OB/Gynecology Comment on above: Orders Start: 05-13-2024 End: 05-13-2024 Patient encounter procedure Bibaina Weathers MD Work Phone: OB/Gynecology Comment on above: 22 weeks gestation o f (Primary Dx); Encounter for supervision of high risk in first trimester, antepartum; Obesity affecting in first trimester, unspecified obesity type Start: 05-13-2024 End: 05-13-2024 ambulatory [facility] Start: 05-13-2024 End: 05-13-2024 [facility] Start: 05-13-2024 End: 05-13-2024 Patient encounter procedure Engineering Design Manager m Eduardo Vasquez [facility] Work Phone: Maternal Medicine Comment on above: Suspected anom davon not found (Primary Dx); Encounter for anatomic survey; H/O anomaly in prior , currently ; 22 weeks gestation of ; H/O delivery, currently ; Suspected cervical shortening not found Start: 05-12-2024 End: 05-12-2024 Orders Only Vini Diez MD Work Phone: Maternal Medicine Comment on above: Encounter for anatomic survey (Primary Dx) Start: 05-11-2024 End: 05-12-2024 Telephone encounter Danii Weinberg APRN.SAMPLE MOUNTER Work Phone: OB/Gynecology Start: 05-05-2024 End: 05-05-2024 Telephone encounter [facility] Work Phone: Maternal Medicine Comment on above: Appointment Start: 04-14-2024 End: 04-14-2024 ambulatory SURJIT AGUIRRE Facility:[facility] Start: 04-14-2024 End: 04-14-2024 Patient encounter procedure Engineering Design Manager Venita Ultrasound Work Phone: OB/Gynecology Comment on above: History of d elivery (Primary Dx); 18 weeks gestation of Start: 04-07-2024 End: 04-07-2024 Chart abstracting Gisella Ayala APRN.SAMPLE MOUNTER Work Phone: OB/Gynecology Comment on above: Patient Update Start: 04-02-2024 ambulatory Danii GRIFFIN RN.SAMPLE MOUNTER Work Phone: OB/Gynecology Comment on above: UTI Start: 03-31-2024 Telephone encounter Danii miles APRN.SAMPLE MOUNTER Work Phone: OB/Gynecology Start: 03-09-2024 End: 03-09-2024 ambulatory SURJIT AGUIRRE Facility:[facility] Start: 03-09-2024 End: 03-09-2024 Patient encounter procedure Yobani Draby MD Work Phone: OB/Gynecology Comment on above: 13 weeks gestation o f (Primary Dx); Encounter for supervision of high risk in first trimester, antepartum; Obesity affecting in first trimester, unspecified obesity type; Encounter for screening for nuchal translucency; History of delivery Encounter for antena jo screening for malformation using ultrasound (Primary Dx); 13 weeks gestation of Start: 03-01-2024 End: 03-01-2024 [facility] Start: 03-01-2024 End: 03-01-2024 Patient encounter procedure Surjit Aguirre MD Work Phone: Family Medicine [place] Comment on above: TMJ dysfunction (Jovanna prasanth Dx) Start: 02-17-2024 End: 02-17-2024 ambulatory DANII WEINBERG Facility:[facility] Start: 02-17-2024 End: 02-17-2024 Patient encounter procedure Vijay Gordon MD Work Phone: Maternal Medicine Comment on above: Obesity affecting pr egnancy in first trimester, unspecified obesity type (Primary Dx); 8 weeks gestation of ; Hyperemesis affecting , antepartum; H/O delivery, currently ; Depression affecting ; Anxiety during ; History of viral myocarditis; Family history of spina bifida; Tetrahydrocannabinol (THC) use disorder, mild, abuse Start: 02-12-2024 Telephone encounter Danii miles ROLLED MATERIALS WORKER.SAMPLE MOUNTER Work Phone: OB/Gynecology Comment on above: Orders Start: 02-09-2024 Telephone encounter Danii miles APRN.SAMPLE MOUNTER Work Phone: OB/Gynecology Comment on above: Patient Update (Optu m) Start: 02-04-2024 Telephone encounter Historical [facility] Comment on above: Orders Start: 02-04-2024 End: 02-04-2024 ambulatory DANII WEINBERG Facility:[facility] Start: 02-04-2024 End: 02-04-2024 Patient encounter procedure Danii Weinberg ROLLED MATERIALS WORKER.SAMPLE MOUNTER Work Phone: OB/Gynecology Comment on above: Encounter for superv ision of high risk in first trimester, antepartum (Primary Dx); 8 weeks gestation of ; Screening for malignant neoplasm of cervix; Uncertain dates, antepartum, unspecified trimester; Hyperemesis affecting , antepartum; Obesity affecting in first trimester, unspecified obesity type; History of section; H/O delivery, currently ; Anxiety during ; Tetrahydrocannabinol (THC) use disorder, mild, abuse; Family history of spina bifida Start: 01-30-2024 Telephone encounter Yobani rosa MD Work Phone: OB/Gynecology Comment on above: Opened In Error Start: 01-22-2024 ambulatory Rosario guzman ROLLED MATERIALS WORKER.CNM Work Phone: OB/Gynecology Comment on above: Nausea Start: 12-26-2023 Telephone encounter Gisella prince ROLLED MATERIALS WORKER.SAMPLE MOUNTER Work Phone: OB/Gynecology Comment on above: Results Start: 12-25-2023 End: 12-25-2023 ambulatory GISELLA AYALA Facility:[facility] Start: 12-25-2023 End: 12-25-2023 Patient encounter procedure Gisella Ayala ROLLED MATERIALS WORKERKELLIE Work Phone: OB/Gynecology Comment on above: Screening for STDs ( sexually transmitted diseases) (Primary Dx); Vaginal irritation Start: 10-20-2023 End: 10-20-2023 ambulatory SURJIT AGUIRRE Facility:[facility] Start: 10-20-2023 End: 10-20-2023 Patient encounter procedure Surjit Aguirre MD Work Phone: Family Medicine [place] Comment on above: Trochanteric bursiti s of right hip (Primary Dx) Start: 09-24-2023 End: 09-24-2023 ambulatory Kimberly Frankieaurelia BOND Work Phone: [facility] Physical [facility] Comment on above: Unspecified injury o f right ankle, subsequent encounter (Primary Dx); Sprain of unspecified ligament of right ankle, initial encounter Start: 09-17-2023 End: 09-17-2023 ambulatory KANWAL SALDAÑA Facility:[facility] Start: 09-15-2023 End: 09-15-2023 ambulatory INDIRA IBARRA Facility:[facility] Start: 09-10-2023 End: 09-10-2023 ambulatory KANWAL SALDAÑA Facility:[facility] Start: 09-08-2023 End: 09-08-2023 ambulatory SURJIT AGUIRRE Facility:[facility] Start: 08-04-2023 End: 08-04-2023 ambulatory SURJIT AGUIRRE Facility:[facility] Start: 08-04-2023 End: 08-04-2023 Subsequent hospital visit by physician [facility] [place] Work Phone: Radiology Comment on above: Injury of right ankl e, subsequent encounter [S99.911D] Start: 07-21-2023 End: 07-21-2023 ambulatory SURJIT AGUIRRE Facility:[facility] Start: 06-26-2023 End: 06-26-2023 ambulatory SURJIT AGUIRRE Facility:[facility] Start: 06-26-2023 End: 06-26-2023 Patient encounter procedure Keyana Thakkar APRN.SAMPLE MOUNTER Work Phone: [facility] Comment on above: URI with cough and c ongestion (Primary Dx); Acute otitis media, right; Feared condition not demonstrated Start: 06-25-2023 Orders Only Lauryn GRIFFIN RN.SAMPLE MOUNTER Work Phone: OB/Gynecology Start: 06-03-2023 End: 06-03-2023 Patient encounter procedure Lauryn Anderson APRN.SAMPLE MOUNTER Work Phone: OB/Gynecology Comment on above: Encounter for gyneco logical examination (general) (routine) without abnormal findings (Primary Dx); Sensation of pressure in bladder area; Class 1 obesity with body mass index (BMI) of 31.0 to 31.9 in adult, unspecified obesity type, unspecified whether serious comorbidity present Start: 06-03-2023 End: 06-03-2023 Patient encounter status Lauryn Anderson APRN.SAMPLE MOUNTER Work Phone: [facility] Work Phone: Start: 04-30-2023 Orders Only Alexandru Gonzalez Work Phone: Orthopaedics Comment on above: Injury of lower leg, right, initial encounter (Primary Dx) Start: 04-17-2023 End: 04-17-2023 Subsequent hospital visit by physician [facility] [place] Work Phone: Radiology Comment on above: Injury of right lowe r extremity, initial encounter [S89.91XA] Start: 04-17-2023 End: 04-17-2023 Patient encounter procedure Duane Higuera APRN.SAMPLE MOUNTER Work Phone: [facility] Comment on above: Injury of right lowe r extremity, initial encounter (Primary Dx) Start: 11-11-2022 Telephone encounter Surjit pulido MD Work Phone: [facility] [place] Comment on above: Appointment Start: 10-01-2022 ambulatory Surjit tatum MD Work Phone: Family Medicine [place] Comment on above: Throat pain Start: 09-02-2022 ambulatory Surjit tatum MD Work Phone: [facility] Start: 09-02-2022 End: 09-02-2022 Patient encounter procedure Surjit Aguirre MD Work Phone: [facility] [place] Comment on above: Appointment Sore throat (Primary Dx); Depression, unspecified depression type Start: 08-28-2022 End: 08-28-2022 Patient encounter procedure Tramaine Rosales MD Work Phone: [facility] [place] Comment on above: Pharyngitis, unspeci fied etiology (Primary Dx); Globus sensation Start: 08-19-2022 End: 08-19-2022 Patient encounter procedure Kanwal Wiggins ROLLED MATERIALS WORKER.SAMPLE MOUNTER Work Phone: [facility] Comment on above: Pharyngitis, unspeci fied etiology (Primary Dx); Acute otitis media, right Start: 08-07-2022 ambulatory Rosario guzman APRN.CNM Work Phone: OB/Gynecology Comment on above: Coming in warly Start: 05-16-2022 End: 05-16-2022 Nursing evaluation of patient and report Nurse [facility] Work Phone: OB/Gynecology Comment on above: Encounter for manage ment and injection of depo-Provera (Primary Dx) Start: 03-22-2022 End: 03-22-2022 Patient encounter procedure Rosario Garcia ROLLED MATERIALS WORKER.CNM Work Phone: OB/Gynecology Comment on above: Breakthrough bleedin g on depo provera (Primary Dx) Start: 03-14-2022 ambulatory Rosario guzman ROLLED MATERIALS WORKER.CNM Work Phone: OB/Gynecology Comment on above: Period Start: 03-01-2022 End: 03-01-2022 Patient encounter procedure Surjit Aguirre MD Work Phone: [facility] [place] Comment on above: Anxiety with depress ion (Primary Dx) Start: 02-21-2022 End: 02-21-2022 Nursing evaluation of patient and report Nurse [facility] Work Phone: OB/Gynecology Comment on above: Initiation of Depo P rovera (Primary Dx); Encounter for management and injection of depo-Provera Start: 02-19-2022 End: 02-19-2022 Patient encounter procedure Rosario Garcia ROLLED MATERIALS WORKER.CNM Work Phone: OB/Gynecology Comment on above: care and examination (Primary Dx) Start: 02-15-2022 ambulatory Rosario Quintero s ROLLED MATERIALS WORKER.CNM Work Phone: OB/Gynecology Comment on above: Appt Start: 01-18-2022 End: 01-18-2022 Patient encounter procedure Kanwal Chow ROLLED MATERIALS WORKER.CNM Work Phone: OB/Gynecology Comment on above: Single delivery by c esarean section (Primary Dx); care and examination of lactating mother; Encounter for screening for maternal depression Start: 01-15-2022 ambulatory Rosario guzman ROLLED MATERIALS WORKER.CNM Work Phone: [facility] Start: 01-15-2022 Patient encounter procedure Rosario Garcia ROLLED MATERIALS WORKER.CNM Work Phone: OB/Gynecology Comment on above: Making appointment Start: 01-07-2022 ambulatory Leonila Rosales Work Phone: OB/Gynecology Comment on above: Ob Delivery Note Start: 01-04-2022 Telephone encounter Leonila skinner MD Work Phone: OB/Gynecology Comment on above: OB Contractions Start: 12-31-2021 End: 12-31-2021 Patient encounter procedure Kanwal Chow APRN.CNM Work Phone: OB/Gynecology Comment on above: 35 weeks gestation o f (Primary Dx) Start: 12-31-2021 End: 12-31-2021 ambulatory Treatment Rm 4 [facility] Work Phone: Hematology/Oncology Comment on above: Anemia complicating , third trimester (Primary Dx) Start: 12-27-2021 End: 12-27-2021 Patient encounter procedure Rosario Garcia APRN.CNM Work Phone: OB/Gynecology Comment on above: 34 weeks gestation o f (Primary Dx); Acute bilateral low back pain without sciatica; H/O delivery, currently Start: 12-27-2021 ambulatory Rosario guzman APRN.CNM Work Phone: OB/Gynecology Comment on above: Just don t know if I should worry or not Start: 12-25-2021 End: 12-25-2021 ambulatory Treatment Rm 7 [facility] Work Phone: Hematology/Oncology Comment on above: Anemia complicating , third trimester (Primary Dx) Start: 12-19-2021 ambulatory Sharri Subramanian RN Intern[facility] Comment on above: Blood management Start: 12-17-2021 Telephone encounter Rosario hendrix APRN.CNM Work Phone: OB/Gynecology Comment on above: Results (referral to Hemoc for Iron Sucrose) Start: 12-17-2021 End: 12-17-2021 Patient encounter procedure Vijay Gordon MD Work Phone: Maternal Medicine Comment on above: Increased nuchal tra nslucency space on ultrasound (Primary Dx); 33 weeks gestation of 33 weeks gestation o f (Primary Dx); Anemia complicating , third trimester; Amniotic fluid index increased Start: 12-04-2021 End: 12-04-2021 Patient encounter procedure Rosario Garcia APRN.CNM Work Phone: OB/Gynecology Comment on above: 31 weeks gestation o f (Primary Dx); Supervision of high risk in third trimester; Anemia complicating , third trimester Start: 11-13-2021 End: 11-13-2021 Patient encounter procedure Yobani Darby MD Work Phone: OB/Gynecology Comment on above: Supervision of high risk in third trimester (Primary Dx); 28 weeks gestation of ; Need for vaccination Start: 09-18-2021 Telephone encounter Kanwal raymond ROLLED MATERIALS WORKER.CNM Work Phone: OB/Gynecology Comment on above: Opened In Error Procedures Date Procedure Procedure Detail Performing Clinician Start: 06-07-2024 Echo tthrc r-t 2d w/wom-mode compl spec&colr d Pollo Tyler MD Work Phone: Start: 05-27-2024 Us preg uterus after 1st trimest 1/ gestation Danii Bridgesdeepti MARTIN.SAMPLE MOUNTER Work Phone: Start: 05-13-2024 Us preg uterus after 1st trimest / gestation Vini Diez MD Work Phone: Start: 04-14-2024 Us preg uterus after 1st trimest / gestation Yobani Darby MD Work Phone: Start: 03-09-2024 Us nuchal translucency 1st gestation Danii Bridgesdeepti MARTIN.SAMPLE MOUNTER Work Phone: Start: 02-04-2024 Antibody screen SURJIT MCCONNELL Comment on above: Order Comment: Speci men Type: BLOOD SPECIMENOrdering Facility: [facility] Address: [address] [place] [address] Performed By: #### T SPN ####CC MAIN BLOOD BANKCLIA [id number] [place] [address] [place] Start: 02-04-2024 H/O: section History of section Danii Weinberg APRN.SAMPLE MOUNTER Work Phone: Start: 02-04-2024 Us uterus l imited 1> fetuses Danii Weinberg APRN.SAMPLE MOUNTER Work Phone: Start: 12-25-2023 BACTERIAL VAGINOSIS NAAT Gisella Susi ROLLED MATERIALS WORKER.SAMPLE MOUNTER Work Phone: Start: 12-25-2023 Iadna trichomonas va ginalis amplified probe tech Gisella Susi ROLLED MATERIALS WORKER.SAMPLE MOUNTER Work Phone: Start: 08-04-2023 Radex ankle complete minimum 3 views Surjit Aguirre MD Work Phone: Start: 06-03-2023 Urnls dip stick/tabl et rgnt auto w/o microscopy Lauryn Anderson ROLLED MATERIALS WORKER.SAMPLE MOUNTER Work Phone: Start: 04-17-2023 Radex ankle complete minimum 3 views Duane Higuera ROLLED MATERIALS WORKER.SAMPLE MOUNTER Work Phone: Start: 08-19-2022 STREP A MOLECULAR (POC) Kanwal Wiggins ROLLED MATERIALS WORKER.SAMPLE MOUNTER Work Phone: Start: 02-21-2022 Urine test visual color cmprsn meths Yobani Darby MD Work Phone: Start: 12-31-2021 URINE OB DIP B/O Jovon Chow ROLLED MATERIALS WORKER.CNM Work Phone: Start: 12-27-2021 Urnls dip stick/tabl et rgnt auto w/o microscopy Rosario Garcia ROLLED MATERIALS WORKER.CNM Work Phone: Start: 12-17-2021 URINE OB DIP B/O Vern Garcia ROLLED MATERIALS WORKER.CNM Work Phone: Start: 12-17-2021 Us preg uterus after 1st trimest 08/18 gestation Rosario Garcia ROLLED MATERIALS WORKER.CNM Work Phone: Start: 12-04-2021 URINE OB DIP B/O Vern Garcia ROLLED MATERIALS WORKER.CNM Work Phone: Start: 11-13-2021 URINE OB DIP B/O Yobani Darby MD Work Phone: Plan of Treatment Date Care Activity Detail Author Start: 11-14-2031 Urine microalbumin profile [facility] Start: 07-04-2030 Urine microalbumin profile DTAP,TDAP,TD (8 - Td or Tdap) [facility] Start: 02-03-2027 Screening for malign ant neoplasm of cervix Cervical Cancer Screening [facility] Start: 08-04-2024 Covid-19 Vaccine (#1) Covid-19 Vacci ne (#1) [facility] Comment on above: Postponed from 05/07 (Declined at this time) Start: 08-04-2024 Covid-19 Vaccine () Covid-19 Vaccine () [facility] Comment on above: Postponed from 04/18 (Declined at this time) Start: 07-18-2024 RSV Vaccine (1 - Ris k 1-dose series) RSV Vaccine (1 - Risk 1-dose series) [facility] Start: 06-24-2024 End: 09-23-2024 CBC W Auto Differential panel - Blood COMPLETE BLOOD COUNT AND DIFFERENTIAL Lab Routine 22 weeks gestation of Encounter for supervision of high risk in first trimester, antepartum Obesity affecting in first trimester, unspecified obesity type Expected: 06/24/2024 (Approximate), Expires: 09/23/2024 [facility] Comment on above: Expected: 06/24/2024 (Approximate), Expires: 09/23/2024 Start: 06-24-2024 End: 09-23-2024 GESTATIONAL GLUCOSE SCREEN, 1-HOUR, 50 GRAM, NON-FASTING GESTATIONAL GLUCOSE SCREEN, 1-HOUR, 50 GRAM, NON-FASTING Lab Routine 22 weeks gestation of Encounter for supervision of high risk in first trimester, antepartum Obesity affecting in first trimester, unspecified obesity type Expected: 06/24/2024 (Approximate), Expires: 09/23/2024 [facility] Work Phone: Comment on above: Expected: 06/24/2024 (Approximate), Expires: 09/23/2024 Start: 06-24-2024 End: 09-23-2024 SYPHILIS TOTAL W/REFLEX SYPHILIS TOTAL W/REFLEX Lab Routine 22 weeks gestation of Encounter for supervision of high risk in first trimester, antepartum Obesity affecting in first trimester, unspecified obesity type Expected: 06/24/2024 (Approximate), Expires: 09/23/2024 [facility] Comment on above: Expected: 06/24/2024 (Approximate), Expires: 09/23/2024 Start: 06-19-2024 PAP TESTING PAP TESTING [facility] Start: 06-19-2024 Screening for malign ant neoplasm of cervix [facility] Start: 06-10-2024 End: 06-10-2024 Patient encounter procedure OB/Gynecology Comment on above: OB Routine OB Routine - 28 week labs done at 24 weeks? Start: 06-09-2024 End: 06-09-2024 Patient encounter procedure 06/09/2024 8:30 AM EDT Office Visit Cardiology [address] [place] [address] Sami Vora MD [address] [facility] [address] [place] [address] Primary Diagnosis Palpitations Cardiology Comment on above: Primary Diagnosis Pa lpitations Start: 06-07-2024 End: 06-07-2024 Patient encounter procedure 06/07/2024 9:00 AM EDT Appointment Cardiology Lab [address] [place] [address] Palpitations [R00.2]spoke to the patient Cardiology Lab Comment on above: Palpitations [R00.2] spoke to the patient Start: 06-04-2024 End: 06-04-2024 Patient encounter procedure 06/04/2024 7:00 AM EDT Office Visit OB/Gynecology [address] [place] [address] Lauryn Anderson APRN.SAMPLE MOUNTER [address] [place] [address] Annual Exam OB/Gynecology Comment on above: Annual Exam Start: 06-03-2024 End: 06-03-2024 Patient encounter procedure 06/03/2024 7:00 AM EDT Office Visit OB/Gynecology [address] [place] [address] Lauryn Anderson APRN.SAMPLE MOUNTER [address] [place] [address] ANNUAL OB/Gynecology Comment on above: ANNUAL Start: 05-27-2024 End: 05-27-2024 Patient encounter procedure 05/27/2024 1:30 PM EDT Routine Office Visit Maternal Medicine [address] [address] Cervical length/ History of labor [Z87.51] Maternal Medicine Comment on above: Cervical length/ His tory of labor [Z87.51] Start: 05-26-2024 End: 05-26-2024 Patient encounter procedure 05/26/2024 10:00 AM EDT Office Visit Cardiology [address] [place] [address] Sami Vora MD [address] [facility] [address] [place] [address] Dx. Cardiac Eval Cardiology Comment on above: Dx. Cardiac Eval Start: 05-26-2024 End: 05-26-2024 ambulatory 05/26/2024 9:00 AM EDT Results Only Cardiology [address] [place] [address] Dx. Cardiac Eval Cardiology Comment on above: Dx. Cardiac Eval Start: 05-21-2024 End: 05-21-2024 Patient encounter procedure 05/21/2024 3:15 PM EDT Routine Office Visit OB/Gynecology [address] [place], [place] [id number] Rosario Garcia APRN.CNM [address] [place] [address] See my chart note OB/Gynecology Comment on above: See my chart note Start: 05-17-2024 End: 05-17-2025 OBSTETRIC ULTRASOUND WHI OBSTETRIC ULTRASOUND WHI Anc Imaging Routine History of labor Expected: 05/17/2024, Expires: 05/17/2025 [facility] Work Phone: Comment on above: Expected: 05/17/2024 , Expires: 05/17/2025 Start: 05-13-2024 End: 05-13-2024 Patient encounter procedure 05/13/2024 3:50 PM EDT Routine Office Visit OB/Gynecology [address] [place], [place] [id number] Bibiana Weathers MD [address] [place] [address] Anatomy/OB OB/Gynecology Comment on above: Anatomy/OB Start: 05-13-2024 End: 05-13-2024 Patient encounter procedure 05/13/2024 1:30 PM EDT Routine Office Visit Maternal Medicine [address] [address] Anatomy/ Cervical length patient needs to be seen, this appointment was the soonest available after being scheduled incorrectly in 30 min slot. A.T Maternal Medicine Comment on above: Anatomy/ Cervical le ngth patient needs to be seen, this appointment was the soonest available after being scheduled incorrectly in 30 min slot. A.T Start: 05-12-2024 End: 05-12-2025 OBSTETRIC ULTRASOUND WHI OBSTETRIC ULTRASOUND WHI Anc Imaging Routine Encounter for anatomic survey Expected: 05/12/2024, Expires: 05/12/2025 [facility] Work Phone: Comment on above: Expected: 05/12/2024 , Expires: 05/12/2025 Start: 05-06-2024 End: 05-06-2024 Patient encounter procedure 05/06/2024 9:30 AM EDT Routine Office Visit Maternal Medicine [address] [address] anatomy Maternal Medicine Comment on above: anatomy Start: 04-28-2024 End: 04-28-2024 Patient encounter procedure 04/28/2024 2:50 PM EDT Routine Office Visit OB/Gynecology [address] [place] [id number] Danyell Rojas MD [address] [place] [address] Anatomy/OB OB/Gynecology Comment on above: Anatomy/OB Start: 04-28-2024 End: 04-28-2024 Patient encounter procedure 04/28/2024 1:30 PM EDT Routine Office Visit OB/Gynecology [address] [place] [id number] Anatomy/OB OB/Gynecology Comment on above: Anatomy/OB Start: 04-18-2024 Covid-19 Vaccine () Covid-19 Vaccine () [facility] Start: 04-18-2024 Covid-19 Vaccine ( season) Covid-19 Vaccine ( season) [facility] Start: 04-18-2024 Influenza vaccination C [facility] Start: 04-14-2024 End: 04-14-2024 Patient encounter procedure 04/14/2024 8:00 AM EDT Routine Office Visit OB/Gynecology [address] [place] [address] Cervical legth OB/Gynecology Comment on above: Cervical legth Start: 04-05-2024 End: 04-05-2024 Patient encounter procedure 04/05/2024 3:50 PM EDT Routine Office Visit OB/Gynecology [address] [place] [id number] Leonila Holley MD [address] [place] [address] OB/ UTI OB/Gynecology Comment on above: OB/ UTI Start: 04-01-2024 End: 04-01-2024 Patient encounter procedure OB/Gynecology Comment on above: Cervical length Cervical Length/OB Start: 03-09-2024 End: 06-08-2024 Chromosome 21 trisomy [Presence] in Blood or Tissue by Cytogenetics [facility] Work Phone: Comment on above: Expected: 03/09/2024 , Expires: 06/08/2024 Start: 03-09-2024 End: 03-09-2024 Patient encounter procedure OB/Gynecology Comment on above: Nuchal Start: 02-17-2024 End: 02-17-2024 Patient encounter procedure 02/17/2024 9:30 AM EDT Routine Office Visit OB/Gynecology [address] [place] [address] Consult to [facility] OB/Gynecology Comment on above: Consult to [facility] Start: 02-15-2024 Influenza vaccination Influenza Vacc ine (#1) [facility] Comment on above: Postponed from 04/18 (Declined at this time) Start: 02-04-2024 End: 05-05-2024 CARRIER SCREEN, STANDARD [facility] Comment on above: Expected: 02/04/2024 , Expires: 05/05/2024 Start: 02-04-2024 End: 05-05-2024 Hemoglobin A1c in Blood [facility] Work Phone: Comment on above: Expected: 02/04/2024 , Expires: 05/05/2024 Start: 02-04-2024 End: 02-03-2025 NUCHAL TRANSLUCENCY WHI NUCHAL TRANSLUCENCY WHI Anc Imaging Routine Encounter for supervision of high risk in first trimester, antepartum 8 weeks gestation of Expected: 02/04/2024, Expires: 02/03/2025 [facility] Comment on above: Expected: 02/04/2024 , Expires: 02/03/2025 Start: 02-04-2024 End: 02-04-2024 Patient encounter procedure 02/04/2024 1:45 PM EDT Initial Office Visit OB/Gynecology [address] [place] [address] Danii Weinberg, ROLLED MATERIALS WORKER.SAMPLE MOUNTER [address] [place] [address] OB/Gynecology Comment on above: Start: 04-18-2023 Influenza vaccination C [facility] Start: 08-28-2022 End: 10-28-2022 Heterophile Ab [Presence] in Serum by Latex agglutination [facility] Work Phone: Comment on above: Expected: 08/28/2022 , Expires: 10/28/2022 Start: 04-18-2022 Influenza vaccination INFLUENZA (#1) [facility] Start: 12-04-2021 End: 02-03-2022 CBC W Auto Differential panel - Blood CBC + DIFF Lab Routine Anemia complicating , third trimester Expected: 12/04/2021, Expires: 02/03/2022 [facility] Work Phone: Comment on above: Expected: 12/04/2021 , Expires: 02/03/2022 Start: 12-04-2021 End: 02-03-2022 FERRITIN BLD FERRITIN BLD Lab Routine Anemia complicating , third trimester Expected: 12/04/2021, Expires: 02/03/2022 [facility] Work Phone: Comment on above: Expected: 12/04/2021 , Expires: 02/03/2022 Start: 12-04-2021 End: 02-03-2022 IRON + TIBC IRON + TIBC Lab Routine Anemia complicating , third trimester Expected: 12/04/2021, Expires: 02/03/2022 [facility] Work Phone: Comment on above: Expected: 12/04/2021 , Expires: 02/03/2022 Start: 2014 Anxiety Screening Anxiety Screening [facility] Start: 04-28-2014 MENINGOCOCCAL B: Consider based on risk (2 of 2 - Risk Bexsero 2-dose series) MENINGOCOCCAL B: Consider based on risk (2 of 2 - Risk Bexsero 2-dose series) [facility] Start: 2010 PEDS TO ADULT TRANSI TION ANNUAL ASSESSMENT PEDS TO ADULT TRANSITION ANNUAL ASSESSMENT [facility] Start: 2008 PEDS TO ADULT TRANSI TION INITIAL DISCUSSION PEDS TO ADULT TRANSITION INITIAL DISCUSSION [facility] Start: 2001 COVID-19 VACCINE (#1) COVID-19 VACCI NE (#1) [facility] Start: 2001 COVID-19 VACCINE (1) COVID-19 VACCIN E (1) [facility] Start: 05-07-1997 COVID-19 VACCINE (#1) COVID-19 VACCI NE (#1) [facility] Bacteria identified in Urine by Culture URINE CULTURE Microbiology Routine Encounter for supervision of high risk in first trimester, antepartum 02/04/2024 2:19 PM EDT [facility] Chlamydia trachomatis+Neisseria gonorrhoeae DNA [Presence] in Unspecified specimen by MARGARETTE with probe detection GONORRHEA/CHLAMYDIA NAAT Lab Routine Screening for STDs (sexually transmitted diseases) 12/25/2023 4:16 PM EDT [facility] Work Phone: Chlamydia trachomatis+Neisseria gonorrhoeae DNA [Presence] in Unspecified specimen by MARGARETTE with probe detection GONORRHEA/CHLAMYDIA NAAT Lab Routine Encounter for supervision of high risk in first trimester, antepartum 02/04/2024 2:19 PM EDT [facility] End: 05-24-2025 ECG COMPLETE ECG COMPLETE ECG Routine Heart palpitations 1 Occurrences starting 05/24/2024 until 05/24/2025 [facility] Work Phone: Comment on above: 1 Occurrences starti ng 05/24/2024 until 05/24/2025 HOLTER MONITOR 48 HOUR HOLTER MO NITOR 48 HOUR ECG Routine Palpitations 05/26/2024 1:21 PM EDT [facility] Work Phone: OBSTETRIC ULTRASOUND WHI OBSTETR IC ULTRASOUND WHI Anc Imaging Routine 31 weeks gestation of Supervision of high risk in third trimester Ordered: 12/04/2021 [facility] Work Phone: Comment on above: Ordered: 12/04/2021 End: 05-07-2024 OBSTETRIC ULTRASOUND WHI OBSTETRIC ULTRASOUND WHI Anc Imaging Routine Encounter for screening for nuchal translucency History of delivery Every other week for 4 Occurrences starting 03/09/2024 until 05/07/2024 [facility] Comment on above: Every other week for 4 Occurrences starting 03/09/2024 until 05/07/2024 PAP TEST PAP TEST Lab Rou ana maria Screening for malignant neoplasm of cervix 02/04/2024 2:19 PM EDT [facility] [facility]: 05-29-2024 XR ANKLE GENERAL 3V AP/LAT/OBL RIGHT XR ANKLE GENERAL 3V AP/LAT/OBL RIGHT Radiology Routine Injury of lower leg, right, initial encounter 1 Occurrences starting 04/30/2023 until 05/29/2024 [facility] Work Phone: Comment on above: 1 Occurrences starti ng 04/30/2023 until 05/29/2024 [facility] Immunizations Immunization Date Immunization Notes Care Provider Seamus samuel 11-13-2021 tetanus toxoid, redu megan diphtheria toxoid, and acellular pertussis vaccine, adsorbed Yobani Darby MD Work Phone: [facility] 06-19-2021 influenza, injectabl e, quadrivalent, contains preservative Kanwal Chow ROLLED MATERIALS WORKER.CNM Work Phone: [facility] 06-19-2021 influenza virus vacc ine, unspecified formulation Alexandru Benitez V, DO Work Phone: [facility] 07-04-2020 tetanus toxoid, redu megan diphtheria toxoid, and acellular pertussis vaccine, adsorbed Kanwal Chow ROLLED MATERIALS WORKER.CNM Work Phone: [facility] 06-05-2020 influenza, seasonal, injectable Kanwal Chow ROLLED MATERIALS WORKER.CNM Work Phone: [facility] 07-12-2019 influenza virus vacc ine, unspecified formulation Kanwal Chow ROLLED MATERIALS WORKER.CNM Work Phone: [facility] 07-05-2018 influenza virus vacc ine, unspecified formulation Kanwal Chow ROLLED MATERIALS WORKER.CNM Work Phone: [facility] 04-14-2015 tuberculin skin test ; purified protein derivative solution, intradermal Gisella John Day ROLLED MATERIALS WORKER.SAMPLE MOUNTER Work Phone: [facility] 04-07-2015 tuberculin skin test ; purified protein derivative solution, intradermal Gisella John Day ROLLED MATERIALS WORKER.SAMPLE MOUNTER Work Phone: [facility] 05-31-2011 influenza virus vacc ine, live, attenuated, for intranasal use Kanwal Chow ROLLED MATERIALS WORKER.CNM Work Phone: [facility] Work Phone: 06-20-2010 influenza virus vacc ine, live, attenuated, for intranasal use Kanwal Chow ROLLED MATERIALS WORKER.CNM Work Phone: [facility] Work Phone: 12-09-2009 human papilloma viru s vaccine, quadrivalent Kanwal Chow ROLLED MATERIALS WORKER.CNM Work Phone: [facility] Work Phone: 06-21-2009 novel Influenza-H1N1 -09, live virus for nasal administration Kanwal Chow APRN.CNM Work Phone: [facility] 05-22-2009 human papilloma viru s vaccine, quadrivalent Kanwal Chow ROLLED MATERIALS WORKER.CNM Work Phone: [facility] Work Phone: 03-02-2009 human papilloma viru s vaccine, quadrivalent Kanwal Chow ROLLED MATERIALS WORKER.CNM Work Phone: [facility] 03-02-2009 Meningococcal, MCV4, unspecified conjugate formulation(groups A, C, Y and W-135) Kanwal Chow APRN.CNM Work Phone: [facility] 03-02-2009 tetanus toxoid, redu megan diphtheria toxoid, and acellular pertussis vaccine, adsorbed Kanwal Chow APRN.CNM Work Phone: [facility] 03-02-2009 varicella virus vaccine Beverly Chow APRN.CNM Work Phone: [facility] 10-07-2006 hepatitis A vaccine, unspecified formulation Kanwal Chow APRN.CNM Work Phone: [facility] Work Phone: 01-29-2006 hepatitis A vaccine, unspecified formulation Kanwal Chow APRN.CNM Work Phone: [facility] Work Phone: 04-05-2002 diphtheria, tetanus toxoids and acellular pertussis vaccine, unspecified formulation Kanwal Chow APRN.CNM Work Phone: [facility] 04-05-2002 measles, mumps and rubella virus vaccine Kanwal Chow APRN.CNM Work Phone: [facility] Work Phone: 04-05-2002 poliovirus vaccine, inactivated Kanwal Chow APRN.CNM Work Phone: [facility] Work Phone: 03-26-2002 diphtheria, tetanus toxoids and acellular pertussis vaccine Kanwalmorris Chow APRN.CNM Work Phone: [facility] Work Phone: 04-27-1999 diphtheria, tetanus toxoids and acellular pertussis vaccine Kanwalmorris Chow APRN.CNM Work Phone: [facility] Work Phone: 04-27-1999 haemophilus influenz ae type b vaccine, HbOC conjugate Kanwal Chow ROLLED MATERIALS WORKER.CNM Work Phone: [facility] Work Phone: 04-27-1999 hepatitis B vaccine, pediatric or pediatric/adolescent dosage Kanwal Chow APRN.CNM Work Phone: [facility] 04-27-1999 trivalent poliovirus vaccine, live, oral Kanwal Chow APRN.CNM Work Phone: [facility] Work Phone: 12-28-1997 measles, mumps and rubella virus vaccine Kanwalmorris Chow APRN.CNM Work Phone: [facility] Work Phone: 12-28-1997 varicella virus vaccine Beverlymarty caceres Geraldo RILEYN.CNM Work Phone: [facility] Work Phone: 10-25-1997 diphtheria, tetanus toxoids and acellular pertussis vaccine Kanwalmorris Chow APRN.CNM Work Phone: [facility] Work Phone: 07-20-1997 diphtheria, tetanus toxoids and acellular pertussis vaccine Kanwalmorris Chow APRN.CNM Work Phone: [facility] Work Phone: 07-20-1997 haemophilus influenz ae type b vaccine, HbOC conjugate Kanwal Chow APRN.CNM Work Phone: [facility] Work Phone: 07-20-1997 hepatitis B vaccine, pediatric or pediatric/adolescent dosage Kanwal Chow ROLLED MATERIALS WORKER.CNM Work Phone: [facility] Work Phone: 02-23-1997 diphtheria, tetanus toxoids and acellular pertussis vaccine Kanwal Chow ROLLED MATERIALS WORKER.CNM Work Phone: [facility] Work Phone: 02-23-1997 haemophilus influenz ae type b vaccine, HbOC conjugate Kanwal Chow ROLLED MATERIALS WORKER.CNM Work Phone: [facility] Work Phone: 02-23-1997 hepatitis B vaccine, pediatric or pediatric/adolescent dosage Kanwal Chow ROLLED MATERIALS WORKER.CNM Work Phone: [facility] 02-23-1997 poliovirus vaccine, inactivated Kanwal Chow ROLLED MATERIALS WORKER.CNM Work Phone: [facility] Work Phone: 01-24-1997 haemophilus influenz ae type b vaccine, HbOC conjugate Kanwal Chow ROLLED MATERIALS WORKER.CNM Work Phone: [facility] Work Phone: 01-24-1997 hepatitis B vaccine, pediatric or pediatric/adolescent dosage Kanwal Chow ROLLED MATERIALS WORKER.CNM Work Phone: [facility] Work Phone: 01-24-1997 poliovirus vaccine, inactivated Kanwal Chow ROLLED MATERIALS WORKER.CNM Work Phone: [facility] Work Phone: 1995 hepatitis B vaccine, pediatric or pediatric/adolescent dosage Kanwal Chow ROLLED MATERIALS WORKER.CNM Work Phone: [facility] Work Phone: Payers Date Payer Category Payer Private Health Insurance [id number] 2023 Private Health Insurance [id number] 2021 Unknown [employer] PPO OOS [id number] 2021-Present [phone] [address] [place] [address] PPO [id number] 2021 Unknown [employer] C[employer] PPO OOS [id number] 2021-Present [phone] [address] [place] [address] PPO [id number] 2020 Medicaid [employer] [place] [id number] 2020-Present [phone] [address] [address] [place] [address] Medicaid [id number] 2020 Medicaid [id number] 2020 Medicaid [id number] Social History Date Type Detail Facility Start: 03-08-2013 End: 05-16-2022 Tobacco smoking status NHIS Never smoked tobacco [facility] Start: 03-08-2013 End: 05-16-2022 Tobacco use and exposure Smokeless tobacco non-user [facility] Start: 09-18-2021 End: 06-09-2024 Alcohol intake Ex-drinker (finding) [facility] Start: 12-20-2020 History SDOH Alcohol Frequency 2 [facility] Start: 12-20-2020 History SDOH Social Connections Phone 5 [facility] Start: 12-20-2020 History SDOH Social Connections Get Together 4 [facility] Start: 12-20-2020 History SDOH Social Connections Tenriism 1 [facility] Start: 12-20-2020 History SDOH Social Connections Meetings 98 [facility] Start: 12-20-2020 History SDOH Social Connections Living 8 [facility] Start: 12-20-2020 History SDOH Physica l Activity DPW 3 [facility] Start: 02-21-2020 Education 15 [facility] Start: 05-12-2021 [facility] Start: 1995 Sex Assigned At Female C [facility] Start: 10-20-2021 End: 03-01-2022 Exposure to SARS-CoV-2 (event) Not sure [facility] Start: 12-20-2020 End: 05-02-2023 History of Social function [facility] Start: 12-20-2020 End: 05-02-2023 Social connection and isolation panel [facility] Do you belong to any clubs or organizations such as restorationist groups, [employer], [employer] or athletic groups, or school groups? No [facility] How often do you att end meetings of the clubs or organizations you belong to? Patient refused [facility] Are you now , , , , never or living with a partner? Living with partner [facility] How often to you hav e a drink containing alcohol? Monthly or less [facility] How many standard dr inks containing alcohol do you have on a typical day? 3 or 4 [facility] How often do you hav e 6 or more drinks on 1 occasion? Less than monthly [facility] Do you feel stress - tense, restless, nervous, or anxious, or unable to sleep at night because your mind is troubled all the time - these days [OSQ] To some extent [facility] (I/We) worried wheth er (my/our) food would run out before (I/we) got money to buy more. Never true [facility] The thought of elisha downing myself has occurred to me Never [facility] Start: 10-23-2021 Gender identity Identifies as female gender (finding) [facility] Start: 10-23-2021 Sexual orientation Heterosexual (brittany cook) [facility] Goals Date Patient Goal Desired Activity /State Personal health goal Personal health goal Clinical Notes 07-04-2020 to 06-09-2024 Sami Vora MD - 06/09/2024 8:55 AM Gennaro Espinoza Tech - 05/26/2024 1:36 PM EDTPatient InstructionsSami Vora MD - 05/26/2024 10:50 AM EDTPatient InstructionsPatient Instructions Note Date & Type Note Facility 06-09-2024 History of Present illness Narrative Images from the original note were not included. [facility] [place] [facility] Department of Cardiovascular Medicine SECTION OF CLINICAL CARDIOLOGY OUTPATIENT VISIT DATE June 09, 2024 OUTPATIENT VISIT TYPE ESTABLISHED PRIMARY CARE PHYSICIAN: Surjit Aguirre [address] [place] [address] REFERRING PHYSICIAN: Sami Vora [address] [facility] [place] [address] CHIEF COMPLAINT: Palpitations, , history of myocarditis HISTORY OF PRESENT ILLNESS: Ms. Jeong is a 28 year old female who presents today for a cardiovascular medicine follow-up visit for evaluation of her above problems. She underwent testing which showed mild anemia. Echocardiogram showed normal heart function. Holter monitor showed frequent episodes of sinus tachycardia but no arrhythmias.. She denies chest pain, shortness of breath, orthopnea, cough, edema,+palpitations, PND, lightheadedness or syncope. PAST CARDIAC HISTORY: None, as above PAST MEDICAL HISTORY Diagnosis Date Anemia complicating , second trimester 07/04/2020 Contracted pelvis during depression anxiety fracture 11 years old right wrist-fell out of bunk bed H/O delivery, currently Hyperemesis gravidarum ER: 01/29/2024 Injury of right ankle 09/10/2023 Myocarditis (HCC) age 18 months 2006 cleared for [address] Dr. Lay--recheck age 18 yrs PMH - PAST MEDICAL HISTORY OF 06/2007 Right wrist fracture PMH - PAST MEDICAL HISTORY OF normal color vision depression Recurrent major depressive disorder, in partial remission (HCC) 11/03/2020 Sprain of right ankle 09/10/2023 Sprain of unspecified ligament of right ankle, initial encounter 09/10/2023 Unspecified injury of right ankle, subsequent encounter 09/10/2023 PAST SURGICAL HISTORY Procedure Laterality Date DELIVERY ONLY 01/05/2022 LTCS PAST SURGICAL HISTORY OF wisdom teeth SOCIAL HISTORY Social History Tobacco Use Smoking status: Never Smokeless tobacco: Never Vaping Use Vaping status: Never Used Substance Use Topics Alcohol use: Not Currently Drug use: No FAMILY HISTORY Problem Relation Age of Onset other (Celiac disease) Mother Hypertension Father No Known Problems Sister No Known Problems Sister other (other) Brother No Known Problems Brother No Known Problems Brother No Known Problems Brother Diabetes Maternal Grandmother Breast Cancer Maternal Grandmother No Known Problems Maternal Grandfather Hypertension Paternal Grandmother Colon Cancer Paternal Grandmother Hyperlipidemia Paternal Grandmother Cancer Paternal Grandfather Bladder Cancer No Known Problems Son Patient-Entered Questionnaire Scores 09/17/2017 12/20/2020 09/10/2023 PROMIS Global Health - (T-Scores - the mean of general population = 50. Five points is a clinically meaningful difference.) Physical T-Score 50.8 44.9 47.7 Mental T-Score 50.8 36.3 45.8 Sleep Duration Level: N/A ALLERGIES: ALLERGIES Allergen Reactions Pollen Other: See Comments Nasal congestion and drainage MEDICATIONS: multivitamin (CALIXTO ) 65 mg iron- 1 mg tab once daily. famotidine (PEPCID) 20 mg tablet two times a day. promethazine HCl (PHENERGAN ORAL) Take 25 mg by mouth every 6 hours. ondansetron (ZOFRAN) 4 mg tablet Take 1 tablet by mouth every 8 hours as needed for nausea/vomiting. traZODone (DESYREL) 50 mg tablet REVIEW OF SYSTEMS: No review of systems performed PHYSICAL EXAMINATION: BP 113/69 (BP Site: Left Arm) Pulse 83 Resp 16 Wt 80.3 kg (177 lb) LMP 12/07/2023 (Exact Date) SpO2 100% BMI 32.37 kg/m No physical examination performed CARDIOVASCULAR MEDICINE TESTING: Electrocardiogram: Normal sinus rhythm Laboratory Testing: Normal except for mild anemia Echocardiogram: As below-normal on my personal review Holter Monitor: Frequent episodes of sinus tachycardia but no arrhythmias. Last ECHO Result Conclusion ECHO Collected: 06/07/2024 9:09 AM (Final result) Impression: CONCLUSIONS: - Exam indication: Palpitations - The left ventricle is normal in size. Left ventricular systolic function is normal. EF = 58 5% (2D biplane) Normal left ventricular diastolic function. - The right ventricle is normal in size. Right ventricular systolic function is normal. - Estimated right ventricular systolic pressure is 22 mmHg consistent with normal pulmonary artery pressures. Estimated right atrial pressure is 3 mmHg based on IVC assessment. - The patient has not had a prior CC echocardiographic exam for comparison. * * * Final * * * I have personally reviewed the Electrocardiogram, Laboratory Testing, Echocardiogram, and Holter. IMPRESSION: Ms. Jeong is a 28 year old female presents with palpitations consistent with sinus tachycardia which may be related to some element of inappropriate sinus tachycardia, current , and anemia. Discussed options and at this time would recommend conservative management. If symptoms are extremely bothersome, low-dose beta-pat could be considered but I do not think that this is necessary and patient agrees. Post , patient can be reevaluated if these issues persist. Also discussed that she should review with her primary team and parts assembler her anemia situation. PLAN AND RECOMMENDATIONS: 1. Palpitations, sinus tachycardia: Conservative management. 2. Disposition: Patient will return to see me on as-needed basis. CONTACT INFORMATION: Sami Vora M.D., F.A.C.C. Staff Funeral Director [facility] Desk [address] [place] [address] Office - [phone] extension [phone] Office Appointments: [phone] -[phone] extension [phone] documented in this encounter [facility] 05-26-2024 Note HNO ID: [id number] Author: GENNARO MAXWELL Tech Service: ? Author Type: Technologist Type: Progress Notes Filed: 05/26/2024 13:37 Note Text: HOLTER MONITOR APPLICATION Patient Name: Kimberly Jeong [facility] Number: [id number] Chest is cleansed with alcohol Skin prep applied Electrodes place on chest and stress loops secured with tape Fresh battery inserted in monitor Holter monitor secured to patient with waist or shoulder straps Patient instructed 1.) Diary documentation 2.) Usage of event button 3.) Maintenance and care of monitor 4.) Safety issues with monitor 5.) Return unit in 24 hours or 48 hours 6.) Call with problems [phone] OR [phone] Patient expresses good verbal understanding of instructions Marlon Avila [facility] 05-26-2024 History of Present illness Narrative HOLTER MONITOR APPLICATION Patient Name: Kimberly Pavon Adenike [facility] Number: [id number] Chest is cleansed with alcohol Skin prep applied Electrodes place on chest and stress loops secured with tape Fresh battery inserted in monitor Holter monitor secured to patient with waist or shoulder straps Patient instructed 1.) Diary documentation 2.) Usage of event button 3.) Maintenance and care of monitor 4.) Safety issues with monitor 5.) Return unit in 24 hours or 48 hours 6.) Call with problems [phone] OR [phone] Patient expresses good verbal understanding of instructions Marlon Avila documented in this encounter [facility] 05-26-2024 Note Education (CARDMN) KIMBERLY JEONG ([id number]) 1995 F Date Time Provider Department 05/26/24 12:00 PM ARRHYTHMIA MONITORING LAB [facility] Reason for Visit: Holter Monitor Application [261] Cmt: 48 HR Visit Diagnosis:Palpitations [R00.2] Order(s):HOLTER MONITOR 48 HOUR [[id number]] Order #: [id number] During your visit today, we recorded the following information about you: Allergies As of Date: 05/26/2024 Noted Allergy Reaction POLLEN 12/05/2011 14 - Other: See Comments Comments: Nasal congestion and drainage Date Reviewed: 05/26/2024 Reviewed by: Ángel Castañeda MA - Fully Assessed Prescriptions as of 05/26/2024 - multivitamin (CALIXTO ) 65 mg iron- 1 mg tab once daily. - famotidine (PEPCID) 20 mg tablet two times a day. - PUMP SET MISC Zofran - aspirin 81 mg cap Take 81 mg by mouth once daily. Starting at 12 weeks. - promethazine HCl (PHENERGAN ORAL) Take 25 mg by mouth every 6 hours. - ondansetron (ZOFRAN) 4 mg tablet Take 1 tablet by mouth every 8 hours as needed for nausea/vomiting. - VRAYLAR 3 mg capsule Take 3 mg by mouth once daily. - traZODone (DESYREL) 50 mg tablet - DULoxetine (CYMBALTA) 60 mg capsule Take 60 mg by mouth once daily. Encounter Status:Closed by GENNARO MAXWELL on 05/26/24 [facility] 05-26-2024 Instructions Pollo Tyler MD - 05/26/2024 11:19 AM EDT It was great to meet and care for you today in clinic. Please find the plan for your care below. Echocardiogram Halter Monitor Lab work Follow up in 2 weeks documented in this encounter [facility] 05-26-2024 Note HNO ID: [id number] Author: SAMI VORA MD Service: ? Author Type: Physician Type: Progress Notes Filed: 06/07/2024 13:32 Note Text: [facility] [place] [facility] Department of Cardiovascular Medicine SECTION OF CLINICAL CARDIOLOGY OUTPATIENT VISIT DATE May 26, 2024 OUTPATIENT VISIT TYPE NEW PRIMARY CARE PHYSICIAN : Surjit Aguirre [address] [place] [address] REFERRING PHYSICIAN: Rosario Garcia [address] [facility] [address] CHIEF COMPLAINT: Palpitations HISTORY OF PRESENT ILLNESS: Ms. Jeong, 28F ( 24w3d), w. History of myocarditis as a toddler who presents as a consult for palpitations. In brief, Mrs. Jeong, started having palpitations about 4 weeks ago and are often time associated with shortness of breath and lightheadedness. She feels this daily and last for a few minutes at a time. She endorses orthopnea which was not noted in her prior pregnancies and lower extremity edema which has started earlier than it has in her prior two pregnancies. 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 Devin Lay) when she was last seen on 12/10/13. Her only notable family cardiac history is her father who has hypertension. She denies chest pain, cough or PND. PAST CARDIAC HISTORY: None PAST MEDICAL HISTORY Diagnosis Date Anemia complicating , second trimester 07/04/2020 Contracted pelvis during depression anxiety fracture 11 years old right wrist-fell out of bunk bed H/O delivery, currently Hyperemesis gravidarum ER: 01/29/2024 Injury of right ankle 09/10/2023 Myocarditis (HCC) age 18 months 2006 cleared for Sports [address] Dr. Lay--recheck age 18 yrs PMH - PAST MEDICAL HISTORY OF 06/2007 Right wrist fracture PMH - PAST MEDICAL HISTORY OF normal color vision depression Recurrent major depressive disorder, in partial remission (HCC) 11/03/2020 Sprain of right ankle 09/10/2023 Sprain of unspecified ligament of right ankle, initial encounter 09/10/2023 Unspecified injury of right ankle, subsequent encounter 09/10/2023 PAST SURGICAL HISTORY Procedure Laterality Date DELIVERY ONLY 01/05/2022 LTCS PAST SURGICAL HISTORY OF wisdom teeth SOCIAL HISTORY Social History Tobacco Use Smoking status: Never Smokeless tobacco: Never Vaping Use Vaping status: Never Used Substance Use Topics Alcohol use: Not Currently Drug use: No FAMILY HISTORY Problem Relation Age of Onset other (Celiac disease) Mother Hypertension Father No Known Problems Sister No Known Problems Sister other (other) Brother No Known Problems Brother No Known Problems Brother No Known Problems Brother Diabetes Maternal Grandmother Breast Cancer Maternal Grandmother No Known Problems Maternal Grandfather Hypertension Paternal Grandmother Colon Cancer Paternal Grandmother Hyperlipidemia Paternal Grandmother Cancer Paternal Grandfather Bladder Cancer No Known Problems Son Patient-Entered Questionnaire Scores 09/17/2017 12/20/2020 09/10/2023 PROMIS Global Health - (T-Scores - the mean of general population = 50. Five points is a clinically meaningful difference.) Physical T-Score 50.8 44.9 47.7 Mental T-Score 50.8 36.3 45.8 Sleep Duration Level: N/A ALLERGIES: ALLERGIES Allergen Reactions Pollen Other: See Comments Nasal congestion and drainage MEDICATIONS: multivitamin (CALIXTO ) 65 mg iron- 1 mg tab once daily. famotidine (PEPCID) 20 mg tablet two times a day. promethazine HCl (PHENERGAN ORAL) Take 25 mg by mouth every 6 hours. ondansetron (ZOFRAN) 4 mg tablet Take 1 tablet by mouth every 8 hours as needed for nausea/vomiting. traZODone (DESYREL) 50 mg tablet PUMP SET MISC Zofran (Patient not taking: Reported on 05/21/2024) aspirin 81 mg cap Take 81 mg by mouth once daily. Starting at 12 weeks. (Patient not taking: Reported on 05/26/2024) VRAYLAR 3 mg capsule Take 3 mg by mouth once daily. (Patient not taking: Reported on 05/26/2024) DULoxetine (CYMBALTA) 60 mg capsule Take 60 mg by mouth once daily. (Patient not taking: Reported on 05/21/2024) REVIEW OF SYSTEMS: GENERAL: Negative for: Weight loss or gain, Fever or Chills, Weakness and Sleep difficulties. HEENT: Negative for: Headache, Impaired Vision, Glasses, Hearing Impairment, Ringing in Ears, Nosebleeds, Poor dental care, Bleeding Gums, Dentures NECK: Negative for: Swelling, Pain, Stiffness RESPIRATORY: Negative for: Cough, Blood in Sputum, Shortness of breath, Wheezing, Apnea GASTROINTESTINAL: Negative for: Trouble swallowing, Heartburn, Change in bowel habits, Blood in stool, Dark black stools MUSCULOSKELETAL: Negative for: Muscle or joint pain, Stiffness , Joint swelling NEUROLOGIC/PSYCHIATRIC: Negative for: Weakness, Paralysis, (more content not included)... [facility] 05-26-2024 History of Present illness Narrative Images from the original note were not included. Heart, Vascular and Thoracic [place] [facility] Department of Cardiovascular Medicine SECTION OF CLINICAL CARDIOLOGY OUTPATIENT VISIT DATE May 26, 2024 OUTPATIENT VISIT TYPE NEW PRIMARY CARE PHYSICIAN : Surjit Aguirre [address] [place] [address] REFERRING PHYSICIAN: Rosario Garcia [address] [facility] [address] CHIEF COMPLAINT: Palpitations HISTORY OF PRESENT ILLNESS: Ms. Jeong, 28F ( 24w3d), w. History of myocarditis as a toddler who presents as a consult for palpitations. In brief, Mrs. Jeong, started having palpitations about 4 weeks ago and are often time associated with shortness of breath and lightheadedness. She feels this daily and last for a few minutes at a time. She endorses orthopnea which was not noted in her prior pregnancies and lower extremity edema which has started earlier than it has in her prior two pregnancies. 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 Devin Lay) when she was last seen on 12/10/13. Her only notable family cardiac history is her father who has hypertension. She denies chest pain, cough or PND. PAST CARDIAC HISTORY: None PAST MEDICAL HISTORY Diagnosis Date Anemia complicating , second trimester 07/04/2020 Contracted pelvis during depression anxiety fracture 11 years old right wrist-fell out of bunk bed H/O delivery, currently Hyperemesis gravidarum ER: 01/29/2024 Injury of right ankle 09/10/2023 Myocarditis (HCC) age 18 months [address] cleared for [address] Lay--recheck age 18 yrs PMH - PAST MEDICAL HISTORY OF 06/2007 Right wrist fracture PMH - PAST MEDICAL HISTORY OF normal color vision depression Recurrent major depressive disorder, in partial remission (HCC) 11/03/2020 Sprain of right ankle 09/10/2023 Sprain of unspecified ligament of right ankle, initial encounter 09/10/2023 Unspecified injury of right ankle, subsequent encounter 09/10/2023 PAST SURGICAL HISTORY Procedure Laterality Date DELIVERY ONLY 01/05/2022 LTCS PAST SURGICAL HISTORY OF wisdom teeth SOCIAL HISTORY Social History Tobacco Use Smoking status: Never Smokeless tobacco: Never Vaping Use Vaping status: Never Used Substance Use Topics Alcohol use: Not Currently Drug use: No FAMILY HISTORY Problem Relation Age of Onset other (Celiac disease) Mother Hypertension Father No Known Problems Sister No Known Problems Sister other (other) Brother No Known Problems Brother No Known Problems Brother No Known Problems Brother Diabetes Maternal Grandmother Breast Cancer Maternal Grandmother No Known Problems Maternal Grandfather Hypertension Paternal Grandmother Colon Cancer Paternal Grandmother Hyperlipidemia Paternal Grandmother Cancer Paternal Grandfather Bladder Cancer No Known Problems Son Patient-Entered Questionnaire Scores 09/17/2017 12/20/2020 09/10/2023 PROMIS Global Health - (T-Scores - the mean of general population = 50. Five points is a clinically meaningful difference.) Physical T-Score 50.8 44.9 47.7 Mental T-Score 50.8 36.3 45.8 Sleep Duration Level: N/A ALLERGIES: ALLERGIES Allergen Reactions Pollen Other: See Comments Nasal congestion and drainage MEDICATIONS: multivitamin (CALIXTO ) 65 mg iron- 1 mg tab once daily. famotidine (PEPCID) 20 mg tablet two times a day. promethazine HCl (PHENERGAN ORAL) Take 25 mg by mouth every 6 hours. ondansetron (ZOFRAN) 4 mg tablet Take 1 tablet by mouth every 8 hours as needed for nausea/vomiting. traZODone (DESYREL) 50 mg tablet PUMP SET MISC Zofran (Patient not taking: Reported on 05/21/2024) aspirin 81 mg cap Take 81 mg by mouth once daily. Starting at 12 weeks. (Patient not taking: Reported on 05/26/2024) VRAYLAR 3 mg capsule Take 3 mg by mouth once daily. (Patient not taking: Reported on 05/26/2024) DULoxetine (CYMBALTA) 60 mg capsule Take 60 mg by mouth once daily. (Patient not taking: Reported on 05/21/2024) REVIEW OF SYSTEMS: GENERAL: Negative for: Weight loss or gain, Fever or Chills, Weakness and Sleep difficulties. HEENT: Negative for: Headache, Impaired Vision, Glasses, Hearing Impairment, Ringing in Ears, Nosebleeds, Poor dental care, Bleeding Gums, Dentures NECK: Negative for: Swelling, Pain, Stiffness RESPIRATORY: Negative for: Cough, Blood in Sputum, Shortness of breath, Wheezing, Apnea GASTROINTESTINAL: Negative for: Trouble swallowing, Heartburn, Change in bowel habits, Blood in stool, Dark black stools MUSCULOSKELETAL: Negative for: Muscle or joint pain, Stiffness , Joint swelling NEUROLOGIC/PSYCHIATRIC: Negative for: Weakness, Paralysis, Numbness, Tingling, Tremor, Nervousness, Depressed mood, Memory loss SKIN: Negative for: Rashes, Itching HEMATOLOGICAL/LYMPHATIC: Negative for: Easy bruising , Easy bleeding ENDOCRINE: Negative for: Heat or cold intolerance, Excessive sweating, Frequent urination, Frequent thirst PHYSICAL EXAMINATION: BP 108/65 (BP Site: Left Arm, BP Position: Sitting, BP Cuff Size: Regular Adult) Pulse 91 Resp 16 Ht 157.5 cm (5' 2 ) Wt 80.7 kg (178 lb) LMP 12/07/2023 (Exact Date) SpO2 99% BMI 32.56 kg/m General: Well appearing, in no acute distress. Skin: No clubbing, no cyanosis. Eyes: Extra ocular movements intact Oropharynx: Teeth in good repair. Neck: No jugular venous distention, no carotid bruits, carotids have a normal upstroke, no palpable thyromegaly. Lungs: Clear to auscultation bilaterally, no wheezing or rhonchi. Heart: Regular rhythm, PMI not displaced, S1, S2 normal, no S3, no S4, no heaves, no rub and no murmur. Abdomen: Soft, nontender, bowel sounds normal, no palpable organomegaly, no bruits. Extremities: No peripheral edema . Grade 2/4 distal pulses bilaterally. Neuro: Oriented to person, place and time, alert, cooperative, gait coordinated. CARDIOVASCULAR MEDICINE TESTING: Electrocardiogram: 05/26/24 I have personally reviewed the Electrocardiogram. IMPRESSION: Ms. Jeong, 28F ( 24w3d), w. History of myocarditis as a toddler who presents as a consult for symptomatic palpitations. Given her known history of viral myocarditis, there is a possibility for increased ectopy or arrhythmias; for this we will plan to obtain a halter monitor to detect any abnormal electrical activity that may be triggering symptoms. We will plan to obtain an echocardiogram as well to assess her heart structure and function. Will also obtain blood work including, CBC to assess for anemia, BMP for electrolyte abnormalities and TSH. Will plan for follow up in 2 weeks. PLAN AND RECOMMENDATIONS: - Ordered halter monitor and echocardiogram - Obtain lab work: CBC, BMP and TSH - Follow up in 2 weeks Pollo Tyler MD, MS Cardiovascular Medicine Fellow, PGY-5 Heart Vascular & Thoracic [facility] Pager: [phone] CONTACT INFORMATION: [facility] STAFF PHYSICIAN NOTE OF PERSONAL INVOLVEMENT IN CARE IMPRESSION: Patient is a 28 year old female with and found to have palpitations with history of viral myocarditis. Patient knows palpitation on daily basis. PLAN: 1. Palpitations: Check Holter monitor echocardiogram and blood work. Follow-up to see me in 2 weeks to review status. I have reviewed the documentation obtained and documented by the Fellow and I have personally performed a face to face assessment of the patient and have personally participated in the gregory components of the visit which includes medical decision making.. I have discussed the case and management of the patient's care. STAFF PHYSICIAN: Sami Vora MD DATE OF SERVICE: June 07, 2024 (for service May 26) TIME OF SERVICE: 1:30 PM documented in this encounter [facility] 05-21-2024 Progress note Formatting of t his note might be different from the original. S: Kimberly Jeong is a 28 year old female who presents at 23.5 weeks gestation as an add on visit for heart palpitations and bouts of dizziness. No history of palpitations. Started feeling random palpitations around 1-2 months ago but they have continued to increase in frequency. Feeling palpitations daily at random times but mostly when laying down. Not with any exertion. Sometimes palpitations make her feel SOB but quickly recovers. Palpitations make her feel really anxious . History of anxiety but feels stable off of medications. Denies panic attacks. C/O dizziness at times as well. Sitting for work without elevating feet/legs. Denies syncope. Positive movement. O: See flow sheet Gen: No apparent distress Abd: Gravid, nontender ASSESSMENT/PLAN: 1. High-risk in second trimester - ICD9: V23.9, ICD10: O09.92 (primary diagnosis) 2. 23 weeks gestation of - ICD9: V22.2, ICD10: Z3A.23 3. Heart palpitations - ICD9: 785.1, ICD10: R00.2 4. Dizziness - ICD9: 780.4, ICD10: R42 - Consult to cardiology placed - Start wearing compression stockings/ elevating legs - SOB- Needs to go to ED - Support provided - RTO for regular OB appointment Rosario Garcia APRN.CNM [facility] 05-21-2024 Miscellaneous Notes S: Kimberly Jeong is a 28 year old female who presents at 23.5 weeks gestation as an add on visit for heart palpitations and bouts of dizziness. No history of palpitations. Started feeling random palpitations around 1-2 months ago but they have continued to increase in frequency. Feeling palpitations daily at random times but mostly when laying down. Not with any exertion. Sometimes palpitations make her feel SOB but quickly recovers. Palpitations make her feel really anxious . History of anxiety but feels stable off of medications. Denies panic attacks. C/O dizziness at times as well. Sitting for work without elevating feet/legs. Denies syncope. Positive movement. O: See flow sheet Gen: No apparent distress Abd: Gravid, nontender ASSESSMENT/PLAN: 1. High-risk in second trimester - ICD9: V23.9, ICD10: O09.92 (primary diagnosis) 2. 23 weeks gestation of - ICD9: V22.2, ICD10: Z3A.23 3. Heart palpitations - ICD9: 785.1, ICD10: R00.2 4. Dizziness - ICD9: 780.4, ICD10: R42 - Consult to cardiology placed - Start wearing compression stockings/ elevating legs - SOB- Needs to go to ED - Support provided - RTO for regular OB appointment Rosario Garcia APRN.CNM documented in this encounter [facility] 05-21-2024 Instructions Sarah Strauss MA - 05/21/2024 3:22 PM EDT SEQUENTIAL SCREENINGS The [facility] offers sequential screenings for women who are interested in screenings for chromosomal abnormalities and certain defects during a . The sequential screen combines ultrasound and blood tests to determine the risk of chromosomal abnormalities, including Down's Syndrome (Trisomy 21) and Trisomy 18, as well as open neural tube defects including spina bifida. Ultrasound examination is performed between 11 weeks and 13 weeks gestational age. Blood tests are drawn after the ultrasound and again later in the between 15 and 21 weeks gestational age. Please let your physician know if you are interested in this testing. It will require an appointment with our public address technician. This is not an ultrasound performed by a physician in our office during a routine visit. SIGNS AND SYMPTOMS OF LABOR 1. Contractions every 10 minutes or more often 2. Clear, pink, or brownish fluid (water) leaking from vagina 3. Feeling that baby is pushing down, pressure 4. Low, dull backache 5. Cramps that feel like a period 6. Cramps with or without diarrhea If you notice any of the above symptoms, contact our office at [phone] and ask to speak with a nurse. After hours, you can call doctors registry at [phone] OR call [facility] at [phone] and ask to have the doctor chief controller center paged. If you consider this an emergency, dial 6-5 or go to your nearest emergency department. NEED HELP? Are you dealing with a violent or abusive relationship? Are you a victim of rape or sexual assult? Call [facility] ([place]) 24 hour Crisis Hotline: 858.526.3306 or 068-159-4806. MANUAL Your Guide to a Healthy manual is now on-line. Visit [email or web address] ncyGuide to download your free copy documented in this encounter [facility] 05-20-2024 Telephone encounter Note Thanks for the update. Rosario Garcia APRN.CNM [facility] Work Phone: 05-20-2024 Miscellaneous Notes Thanks for the update. Rosario Garcia APRN.CNM Patient made appointment on [facility] to be seen tomorrow. Johanna Boland RN Patient 23w4d, last seen 05/13. Next appointment on 06/10. documented in this encounter [facility] 05-20-2024 Telephone encounter Note Patient made appointment on [facility] to be seen tomorrow. Johanna Boland RN [facility] 05-20-2024 Telephone encounter Note Patient 23w4d, last seen 05/13. Next appointment on 06/10. [facility] 05-17-2024 Telephone encounter Note Signed. Danii Weinberg APRN.EMRE [facility] 05-17-2024 Miscellaneous Notes Signed. Danii Weinberg APRN.EMRE Patient notified. She would like to schedule in [place] since she works in [place]. Please file order. We will then route to [facility] to assist with scheduling. Thank you. Bibiana Hernandes RN ----- Message from Danii Weinberg APRN.EMRE sent at 05/17/2024 7:17 AM EDT ----- Reviewed. Please add to record. Needs 1 more cervical length screening at 24 weeks. Danii Weinberg APRN.CNP documented in this encounter [facility] 05-17-2024 Telephone encounter Note Patient notified. She would like to schedule in [place] since she works in [place]. Please file order. We will then route to [facility] to assist with scheduling. Thank you. Bibiana Hernandes RN [facility] 05-17-2024 Telephone encounter Note ----- Message from Danii Weinberg APRN.S[employer] M[employer]TER sent at 05/17/2024 7:17 AM EDT ----- Reviewed. Please add to record. Needs 1 more cervical length screening at 24 weeks. Danii Weinberg APRN.SAMPLE M[employer]TER [facility] 05-13-2024 Miscellaneous Notes S: Kimberly Jeong is a 28 year old female who presents at 09/12/2024, by Last Menstrual Period for a routine visit. Denies headache, visual changes, chest pain, shortness of breath, vaginal bleeding, leakage of fluid, or dysuria. Feeling well, no complaints. O: See flow sheet Gen: No apparent distress Abd: Gravid, nontender Anatomy US in [place] no report yet. ASSESSMENT/PLAN: 1. 22 weeks gestation of - ICD9: V22.2, ICD10: Z3A.22 (primary diagnosis) - GESTATIONAL GLUCOSE SCREEN, 1-HOUR, 50 GRAM, NON-FASTING - COMPLETE BLOOD COUNT AND DIFFERENTIAL - SYPHILIS TOTAL W/REFLEX 2. Encounter for supervision of high risk in first trimester, antepartum - ICD9: V23.9, ICD10: O09.91 - GESTATIONAL GLUCOSE SCREEN, 1-HOUR, 50 GRAM, NON-FASTING - COMPLETE BLOOD COUNT AND DIFFERENTIAL - SYPHILIS TOTAL W/REFLEX 3. Obesity affecting in first trimester, unspecified obesity type - ICD9: 649.13, ICD10: O99.211 - GESTATIONAL GLUCOSE SCREEN, 1-HOUR, 50 GRAM, NON-FASTING - COMPLETE BLOOD COUNT AND DIFFERENTIAL - SYPHILIS TOTAL W/REFLEX Bibiana Weathers MD documented in this encounter [facility] 05-13-2024 Progress note Formatting of t his note might be different from the original. S: Kimberly Jeong is a 28 year old female who presents at 09/12/2024, by Last Menstrual Period for a routine visit. Denies headache, visual changes, chest pain, shortness of breath, vaginal bleeding, leakage of fluid, or dysuria. Feeling well, no complaints. O: See flow sheet Gen: No apparent distress Abd: Gravid, nontender Anatomy US in [place] no report yet. ASSESSMENT/PLAN: 1. 22 weeks gestation of - ICD9: V22.2, ICD10: Z3A.22 (primary diagnosis) - GESTATIONAL GLUCOSE SCREEN, 1-HOUR, 50 GRAM, NON-FASTING - COMPLETE BLOOD COUNT AND DIFFERENTIAL - SYPHILIS TOTAL W/REFLEX 2. Encounter for supervision of high risk in first trimester, antepartum - ICD9: V23.9, ICD10: O09.91 - GESTATIONAL GLUCOSE SCREEN, 1-HOUR, 50 GRAM, NON-FASTING - COMPLETE BLOOD COUNT AND DIFFERENTIAL - SYPHILIS TOTAL W/REFLEX 3. Obesity affecting in first trimester, unspecified obesity type - ICD9: 649.13, ICD10: O99.211 - GESTATIONAL GLUCOSE SCREEN, 1-HOUR, 50 GRAM, NON-FASTING - COMPLETE BLOOD COUNT AND DIFFERENTIAL - SYPHILIS TOTAL W/REFLEX Bibiana Weathers MD [facility] 05-13-2024 Instructions Nallely Mcknight MA - 05/13/2024 3:27 PM EDT SEQUENTIAL SCREENINGS The [facility] offers sequential screenings for women who are interested in screenings for chromosomal abnormalities and certain defects during a . The sequential screen combines ultrasound and blood tests to determine the risk of chromosomal abnormalities, including Down's Syndrome (Trisomy 21) and Trisomy 18, as well as open neural tube defects including spina bifida. Ultrasound examination is performed between 11 weeks and 13 weeks gestational age. Blood tests are drawn after the ultrasound and again later in the between 15 and 21 weeks gestational age. Please let your physician know if you are interested in this testing. It will require an appointment with our public address technician. This is not an ultrasound performed by a physician in our office during a routine visit. SIGNS AND SYMPTOMS OF LABOR 1. Contractions every 10 minutes or more often 2. Clear, pink, or brownish fluid (water) leaking from vagina 3. Feeling that baby is pushing down, pressure 4. Low, dull backache 5. Cramps that feel like a period 6. Cramps with or without diarrhea If you notice any of the above symptoms, contact our office at [phone] and ask to speak with a nurse. After hours, you can call [employer] [facility] registry at [phone] OR call [facility] at [phone] and ask to have the doctor chief controller center paged. If you consider this an emergency, dial 4-8-2 or go to your nearest emergency department. NEED HELP? Are you dealing with a violent or abusive relationship? Are you a victim of rape or sexual assult? Call [facility] ([place]) 24 hour Crisis Hotline: 559.770.6665 or 704-084-3037. MANUAL Your Guide to a Healthy manual is now on-line. Visit [email or web address] ncyGuide to download your free copy documented in this encounter [facility] 05-12-2024 Telephone encounter Note [facility] paperwork has been completed and faxed to the number patient provided. Patient notified. Konstantin Simpson MA [facility] 05-12-2024 Miscellaneous Notes [employer] paperwork has been completed and faxed to the number patient provided. Patient notified. Konstantin Simpson MA [facility] paperwork completed and on providers desk for signature. Konstantin Simpson MA Received FMLA paperwork from employer. Awaiting patients response with amount of leave she is requesting. Konstantin Simpson MA documented in this encounter [facility] 05-11-2024 Telephone encounter Note [place] paperwork completed and on providers desk for signature. Konstantin Simpson MA [facility] 05-11-2024 Telephone encounter Note Received FMLA paperwork from employer. Awaiting patients response with amount of leave she is requesting. Konstantin Simpson MA [facility] 05-05-2024 Telephone encounter Note LM for patient to call the office to reschedule her ultrasund scheduled for 05/06/2024 in [place] needs to be an hour anatomy scan [facility] 05-05-2024 Miscellaneous Notes LM for patient to call the office to reschedule her ultrasund scheduled for 05/06/2024 in [place] needs to be an hour anatomy scan documented in this encounter [facility] 04-07-2024 Note HNO ID: [id number] Author: BIBIANA HERNANDES RN Service: ? Author Type: Registered Nurse Type: Progress Notes Filed: 04/07/2024 08:45 Note Text: Scan on 04/07/2024 8:23 AM by Provider, External, PA-C: Miscellaneous Clinical Documents [facility] 04-07-2024 History of Present illness Narrative Scan on 04/07/2024 8:23 AM by Provider, DENITA Andrew: Miscellaneous Clinical Documents documented in this encounter [facility] 04-02-2024 Telephone encounter Note Called Pt and appt made for 04/05 3:50 with SW. Justin Peterson RN [facility] 04-02-2024 Miscellaneous Notes Called Pt and appt made for 04/05 3:50 with SW. Justin Peterson RN documented in this encounter [facility] 03-31-2024 Telephone encounter Note Received fax from [employer] stating Pt [[employer] ID [id number]/ Phone # ] has been noncompliant since 03/18/24 and agreed to speak 03/24/24. They have left 3 messages and Pt has not responded. Pt will be discharged from [employer] services on 04/01/24. [employer] will fax the patient summary on the discharge date unless they hear back from patient to continue service. Justin Peterson RN [facility] 03-31-2024 Miscellaneous Notes Received fax from [employer] stating Pt [[employer] ID [id number]/ Phone # ] has been noncompliant since 03/18/24 and agreed to speak 03/24/24. They have left 3 messages and Pt has not responded. Pt will be discharged from [employer] [facility] on 04/01/24. [employer] will fax the patient summary on the discharge date unless they hear back from patient to continue service. Justin Peterson RN documented in this encounter [facility] 03-09-2024 Progress note Formatting of t his note might be different from the original. KJ - VB No. LOF No. CTXS No. Movement: absent. Other c/o: No. Medication list reviewed. Physical Exam See Flow Sheet Gen: no accute distress, well appearing A/P 13w2d Estimated Date of Delivery: 09/12/24 NT today NIPT ordered H/o PTD - serial cervical lengths at 16 weeks MOD - plans repeat with tubal sterilization Yobain Darby MD [facility] 03-09-2024 Miscellaneous Notes KJ - VB No. LOF No. CTXS No. Movement: absent. Other c/o: No. Medication list reviewed. Physical Exam See Flow Sheet Gen: no accute distress, well appearing A/P 13w2d Estimated Date of Delivery: 09/12/24 NT today NIPT ordered H/o PTD - serial cervical lengths at 16 weeks MOD - plans repeat with tubal sterilization Yobani Darby MD documented in this encounter [facility] 03-09-2024 Note HNO ID: [id number] Author: JUSTIN PETERSON RN Service: ? Author Type: Registered Nurse Type: Progress Notes Filed: 03/09/2024 10:01 Note Text: Patient here for First Trimester Screening. See ultrasound report for details. Options for genetic screening and diagnosis discussed with the patient. Patient opts for first trimester screening and the sequential screening protocol. Limitations of screening tests discussed with the patient. Yobani Darby MD [facility] 03-09-2024 History of Present illness Narrative Patient here for First Trimester Screening. See ultrasound report for details. Options for genetic screening and diagnosis discussed with the patient. Patient opts for first trimester screening and the sequential screening protocol. Limitations of screening tests discussed with the patient. Yobani Darby MD documented in this encounter [facility] 03-09-2024 Instructions Justin Peterson RN - 03/09/2024 9:16 AM EDT SEQUENTIAL SCREENINGS The [facility] offers sequential screenings for women who are interested in screenings for chromosomal abnormalities and certain defects during a . The sequential screen combines ultrasound and blood tests to determine the risk of chromosomal abnormalities, including Down's Syndrome (Trisomy 21) and Trisomy 18, as well as open neural tube defects including spina bifida. Ultrasound examination is performed between 11 weeks and 13 weeks gestational age. Blood tests are drawn after the ultrasound and again later in the between 15 and 21 weeks gestational age. Please let your physician know if you are interested in this testing. It will require an appointment with our public address technician. This is not an ultrasound performed by a physician in our office during a routine visit. SIGNS AND SYMPTOMS OF LABOR 1. Contractions every 10 minutes or more often 2. Clear, pink, or brownish fluid (water) leaking from vagina 3. Feeling that baby is pushing down, pressure 4. Low, dull backache 5. Cramps that feel like a period 6. Cramps with or without diarrhea If you notice any of the above symptoms, contact our office at [phone] and ask to speak with a nurse. After hours, you can call doctors registry at [phone] OR call [facility] at [phone] and ask to have the doctor chief controller center paged. If you consider this an emergency, dial 9-1-1 or go to your nearest emergency department. NEED HELP? Are you dealing with a violent or abusive relationship? Are you a victim of rape or sexual assult? Call [facility] ([facility] 24 hour Crisis Hotline: 516.405.4421 or 215-125-5187. MANUAL Your Guide to a Healthy manual is now on-line. Visit [email or web address] to download your free copy SEQUENTIAL TESTING PROCESS Sequential Screen First Trimester Today you are currently: 13w2d weeks 03/09/2024: Ultrasound and blood test. Sequential Screen Second Trimester (16-17 Weeks Gestation) When you are called with your results, the nurse will give the optimal draw dates for the Sequential screen second trimester. Blood testing can be done at any [facility] lab. Please report to the any walking dragline oiler office assistant front end manager for the Sequential Part 2 requisition and order before reporting to the lab. Your weight will need to be documented for testing. Please note: -No appointment is need for your second blood draw. -Office hours are 8 am to 4:30 pm. -Please have testing done prior to 12 noon on Friday's -Once the sequential testing is started, in the first trimester the only follow-up will be for the sequential screen second trimester. Please don't have a Quad screen ordered by another provider. If you or your Provider have any questions please call your maternal medicine office, for east side please call [phone] or for the West side call [phone] and ask for the the nurse. Thank you. documented in this encounter [facility] 03-01-2024 History of Present illness Narrative Chief Complaint Patient presents with: jaw pain: Left side HPI Kimberly Jeong is a 28 year old female who presents here today for Jaw pain. Pt c/o left side jaw pain x 2 weeks, constant dull ache. She states that she opened her mouth and felt a pop, she feels popping when she yawns. Difficulty opening mouth up wide enough for fork. She thought maybe she was grinding her teeth at night. She has a broken tooth but states that he pain feels further back from the tooth. She has been taking Tylenol and Ibuprofen. No heat or ice used. Past medical history, appointments, medications, allergies reviewed. Previous Medical History PAST MEDICAL HISTORY Diagnosis Date Anemia complicating , second trimester 07/04/2020 Contracted pelvis during depression anxiety fracture 11 years old right wrist-fell out of bunk bed H/O delivery, currently Hyperemesis gravidarum ER: 01/29/2024 Injury of right ankle 09/10/2023 Myocarditis (HCC) age 18 months 2006 cleared for [address] Dr. Lay--recheck age 18 yrs PMH - PAST MEDICAL HISTORY OF 06/2007 Right wrist fracture PMH - PAST MEDICAL HISTORY OF normal color vision depression Recurrent major depressive disorder, in partial remission (HCC) 11/03/2020 Sprain of right ankle 09/10/2023 Sprain of unspecified ligament of right ankle, initial encounter 09/10/2023 Unspecified injury of right ankle, subsequent encounter 09/10/2023 Previous Surgical History PAST SURGICAL HISTORY Procedure Laterality Date DELIVERY ONLY 01/05/2022 LTCS PAST SURGICAL HISTORY OF wisdom teeth Family History FAMILY HISTORY Problem Relation Age of Onset other (Celiac disease) Mother Hypertension Father No Known Problems Sister No Known Problems Sister other (other) Brother No Known Problems Brother No Known Problems Brother No Known Problems Brother Diabetes Maternal Grandmother Breast Cancer Maternal Grandmother No Known Problems Maternal Grandfather Hypertension Paternal Grandmother Colon Cancer Paternal Grandmother Hyperlipidemia Paternal Grandmother Cancer Paternal Grandfather Bladder Cancer No Known Problems Son Patient Allergies ALLERGIES Allergen Reactions Pollen Other: See Comments Nasal congestion and drainage Current Medications Current Outpatient Medications on File Prior to Visit Medication Sig multivitamin (CALIXTO ) 65 mg iron- 1 mg tab once daily. famotidine (PEPCID) 20 mg tablet two times a day. pyridoxine, vitamin B6, (VITAMIN B6) 50 mg tablet Take 1 tablet by mouth every 12 hours. (Patient not taking: Reported on 02/17/2024) PUMP SET MISC Zofran aspirin 81 mg cap Take 81 mg by mouth once daily. Starting at 12 weeks. promethazine HCl (PHENERGAN ORAL) Take 25 mg by mouth every 6 hours. ondansetron (ZOFRAN) 4 mg tablet Take 1 tablet by mouth every 8 hours as needed for nausea/vomiting. doxylamine-pyridoxine, vit B6, 10-10 mg TbEC Take 2 tabs at night. If symptoms persist after 2 days add one tab in the morning. If symptoms still persist after 4 days add a tab mid-day (Patient not taking: Reported on 02/03/2024) VRAYLAR 3 mg capsule Take 3 mg by mouth once daily. traZODone (DESYREL) 50 mg tablet hydrOXYzine pamoate (VISTARIL) 50 mg capsule Take 2 capsules by mouth twice daily. (Patient not taking: Reported on 02/03/2024) DULoxetine (CYMBALTA) 60 mg capsule Take 60 mg by mouth once daily. No current facility-administered medications on file prior to visit. Social History Social History Tobacco Use Smoking status: Never Smokeless tobacco: Never Vaping Use Vaping Use: Never used Substance Use Topics Alcohol use: Not Currently Drug use: No EXAM: BP 118/70 Pulse 98 Resp 18 Wt 78.4 kg (172 lb 12.8 oz) LMP 12/07/2023 (Exact Date) BMI 31.61 kg/m General Appearance: Well appearing, alert, in no acute distress, well-hydrated, well nourished.. Left jaw: mild tenderness TMJ with palpable thunk. Health Maintenance List Covid-19 Vaccine( - season) due on 08/04/2024 Influenza Vaccine(1) due on 04/18/2024 RSV Vaccine(1 - Risk 1-dose series) due on 07/18/2024 Cervical Cancer Screening due on 02/03/2027 DTaP,Tdap,Td Vaccine(10 - Td or Tdap) due on 11/14/2031 Hepatitis B Vaccine Completed HPV Vaccine Completed Hepatitis C Screening Completed HIV Screening Completed Data reviewed none ASSESSMENT/PLAN: 1. TMJ dysfunction - ICD9: 524.60, ICD10: M26.609 Will use short term Mobic, as she is 12 weeks Ice Call if not improved in 1-2 weeks - MELOXICAM 15 MG TABLET I agree with the Chief Complaint, ROS, and Past Histories independently gathered by the clinical technical support consultant and the remaining scribed note accurately describes my personal service to the patient. Medical Decision Making: Problems: Low: Acute, uncomplicated illness or injury Risk: Moderate: Drug management Medical Decision Making Level: 3 - Low Surjit Aguirre MD The documentation for this note was completed by Candy Rousseau MA acting as scribe for Surjit Aguirre MD. March 01, 2024 2:08 PM. Candy Rousseau MA documented in this encounter [facility] 03-01-2024 Note HNO ID: [id number] Author: SURJIT AGUIRRE MD Service: ? Author Type: Physician Type: Progress Notes Filed: 03/01/2024 15:48 Note Text: Chief Complaint Patient presents with: jaw pain: Left side HPI Kimberly Jeong is a 28 year old female who presents here today for Jaw pain. Pt c/o left side jaw pain x 2 weeks, constant dull ache. She states that she opened her mouth and felt a pop, she feels popping when she yawns. Difficulty opening mouth up wide enough for fork. She thought maybe she was grinding her teeth at night. She has a broken tooth but states that he pain feels further back from the tooth. She has been taking Tylenol and Ibuprofen. No heat or ice used. Past medical history, appointments, medications, allergies reviewed. Previous Medical History PAST MEDICAL HISTORY Diagnosis Date Anemia complicating , second trimester 07/04/2020 Contracted pelvis during depression anxiety fracture 11 years old right wrist-fell out of bunk bed H/O delivery, currently Hyperemesis gravidarum ER: 01/29/2024 Injury of right ankle 09/10/2023 Myocarditis (HCC) age 18 months 2006 cleared for [address] Dr. Lay--recheck age 18 yrs PMH - PAST MEDICAL HISTORY OF 06/2007 Right wrist fracture PMH - PAST MEDICAL HISTORY OF normal color vision depression Recurrent major depressive disorder, in partial remission (HCC) 11/03/2020 Sprain of right ankle 09/10/2023 Sprain of unspecified ligament of right ankle, initial encounter 09/10/2023 Unspecified injury of right ankle, subsequent encounter 09/10/2023 Previous Surgical History PAST SURGICAL HISTORY Procedure Laterality Date DELIVERY ONLY 01/05/2022 [facility] PAST SURGICAL HISTORY OF wisdom teeth Family History FAMILY HISTORY Problem Relation Age of Onset other (Celiac disease) Mother Hypertension Father No Known Problems Sister No Known Problems Sister other (other) Brother No Known Problems Brother No Known Problems Brother No Known Problems Brother Diabetes Maternal Grandmother Breast Cancer Maternal Grandmother No Known Problems Maternal Grandfather Hypertension Paternal Grandmother Colon Cancer Paternal Grandmother Hyperlipidemia Paternal Grandmother Cancer Paternal Grandfather Bladder Cancer No Known Problems Son Patient Allergies ALLERGIES Allergen Reactions Pollen Other: See Comments Nasal congestion and drainage Current Medications Current Outpatient Medications on File Prior to Visit Medication Sig multivitamin (CALIXTO ) 65 mg iron- 1 mg tab once daily. famotidine (PEPCID) 20 mg tablet two times a day. pyridoxine, vitamin B6, (VITAMIN B6) 50 mg tablet Take 1 tablet by mouth every 12 hours. (Patient not taking: Reported on 02/17/2024) PUMP SET MISC Zofran aspirin 81 mg cap Take 81 mg by mouth once daily. Starting at 12 weeks. promethazine HCl (PHENERGAN ORAL) Take 25 mg by mouth every 6 hours. ondansetron (ZOFRAN) 4 mg tablet Take 1 tablet by mouth every 8 hours as needed for nausea/vomiting. doxylamine-pyridoxine, vit B6, 10-10 mg TbEC Take 2 tabs at night. If symptoms persist after 2 days add one tab in the morning. If symptoms still persist after 4 days add a tab mid-day (Patient not taking: Reported on 02/03/2024) VRAYLAR 3 mg capsule Take 3 mg by mouth once daily. traZODone (DESYREL) 50 mg tablet hydrOXYzine pamoate (VISTARIL) 50 mg capsule Take 2 capsules by mouth twice daily. (Patient not taking: Reported on 02/03/2024) DULoxetine (CYMBALTA) 60 mg capsule Take 60 mg by mouth once daily. No current facility-administered medications on file prior to visit. Social History Social History Tobacco Use Smoking status: Never Smokeless tobacco: Never Vaping Use Vaping Use: Never used Substance Use Topics Alcohol use: Not Currently Drug use: No EXAM: BP 118/70 Pulse 98 Resp 18 Wt 78.4 kg (172 lb 12.8 oz) LMP 12/07/2023 (Exact Date) BMI 31.61 kg/m? General Appearance: Well appearing, alert, in no acute distress, well-hydrated, well nourished.. Left jaw: mild tenderness TMJ with palpable thunk. Health Maintenance List Covid-19 Vaccine(2022- season) due on 08/04/2024 Influenza Vaccine(1) due on 04/18/2024 RSV Vaccine(1 - Risk 1-dose series) due on 07/18/2024 Cervical Cancer Screening due on 02/03/2027 DTaP,Tdap,Td Vaccine(10 - Td or Tdap) due on 11/14/2031 Hepatitis B Vaccine Completed HPV Vaccine Completed Hepatitis C Screening Completed HIV Screening Completed Data reviewed none ASSESSMENT/PLAN: 1. TMJ dysfunction - ICD9: 524.60, ICD10: M26.609 Will use short term Mobic, as she is 12 weeks Ice Call if not improved in 1-2 weeks - MELOXICAM 15 MG TABLET I agree with the Chief Complaint, ROS, and Past Histories independently gathered by the clinical technical support consultant and the remaining scribed note accurately describes my pe (more content not included)... [facility] 02-17-2024 Note HNO ID: [id number] Author: VIJAY GORDON MD Service: ? Author Type: Physician Type: Progress Notes Filed: 02/17/2024 10:19 Note Text: Button Sawyer [place] OUTPATIENT VISIT DATE February 17, 2024 OUTPATIENT VISIT TYPE CONSULT REFERRING PROVIDER: Danii Weinberg APRN.SAMPLE MOUNTER Recommendations from today's consultation will be conveyed through the electronic medical record. History of Present Illness: 28 year old at 10w2d with Estimated Date of Delivery: 09/12/24 presenting for consultation with Maternal- Medicine at the [facility] in the setting of history two previous deliveries. has also been complicated by hyperemesis gravidarum, anxiety/depression, obesity BMI 33, history viral myocarditis, anxiety and depression. Currently using zofran pump with significant improvement in hyperemesis symptoms. Has no current bleeding, abdominal pain or other obstetric concerns. Unfortunately having family stress, is following with therapist and psychiatry. Is able to tolerate Cymbalta which she re-started, hoping this will optimize things. No cardiopulmonary complaints. Her relevant histories have been updated and are reviewed below: Obstetric History: # 1 - Date: 08/15/20, Sex: Male, Weight: 4 lb 10 oz (2.098 kg), GA: 33w2d, Delivery: Vaginal, Spontaneous, Apgar1: 7, Apgar5: 8, Living: Living, Comments: fall one week prior to delivery, PPROM, EBL 150 mL, no lacerations, loose nuchal x1 # 2 - Date: 01/05/22, Sex: Male, Weight: 6 lb 12 oz (3.062 kg), GA: 36w0d, Delivery: , Low Transverse, Apgar1: 1, Apgar5: 6, Living: Living, Comments: c/s for arrest of descent, CPD and OP position, EBL 900mL, right broad ligament extension # 3 - Date: None, Sex: None, Weight: None, GA: None, Delivery: None, Apgar1: None, Apgar5: None, Living: None, Comments: None Past Medical History: PAST MEDICAL HISTORY Diagnosis Date Anemia complicating , second trimester 07/04/2020 Contracted pelvis during depression anxiety fracture 11 years old right wrist-fell out of bunk bed H/O delivery, currently Hyperemesis gravidarum ER: 01/29/2024 Injury of right ankle 09/10/2023 Myocarditis ([facility]) age 18 months [address] cleared [address] Lay--recheck age 18 yrs PMH - PAST MEDICAL HISTORY OF 06/2007 Right wrist fracture PMH - PAST MEDICAL HISTORY OF normal color vision depression Recurrent major depressive disorder, in partial remission ([facility]) 11/03/2020 Sprain of right ankle 09/10/2023 Sprain of unspecified ligament of right ankle, initial encounter 09/10/2023 Unspecified injury of right ankle, subsequent encounter 09/10/2023 Past Surgical History: PAST SURGICAL HISTORY Procedure Laterality Date DELIVERY ONLY 01/05/2022 LTCS PAST SURGICAL HISTORY OF wisdom teeth Medications: Current Outpatient Medications on File Prior to Visit Medication Sig multivitamin (CALIXTO ) 65 mg iron- 1 mg tab once daily. famotidine (PEPCID) 20 mg tablet two times a day. PUMP SET MISC Zofran aspirin 81 mg cap Take 81 mg by mouth once daily. Starting at 12 weeks. promethazine HCl (PHENERGAN ORAL) Take 25 mg by mouth every 6 hours. ondansetron (ZOFRAN) 4 mg tablet Take 1 tablet by mouth every 8 hours as needed for nausea/vomiting. VRAYLAR 3 mg capsule Take 3 mg by mouth once daily. traZODone (DESYREL) 50 mg tablet DULoxetine (CYMBALTA) 60 mg capsule Take 60 mg by mouth once daily. pyridoxine, vitamin B6, (VITAMIN B6) 50 mg tablet Take 1 tablet by mouth every 12 hours. (Patient not taking: Reported on 02/17/2024) doxylamine-pyridoxine, vit B6, 10-10 mg TbEC Take 2 tabs at night. If symptoms persist after 2 days add one tab in the morning. If symptoms still persist after 4 days add a tab mid-day (Patient not taking: Reported on 02/03/2024) hydrOXYzine pamoate (VISTARIL) 50 mg capsule Take 2 capsules by mouth twice daily. (Patient not taking: Reported on 02/03/2024) Allergies: ALLERGIES Allergen Reactions Pollen Other: See Comments Nasal congestion and drainage Social History: Social History Tobacco Use Smoking status: Never Smokeless tobacco: Never Vaping Use Vaping Use: Never used Substance Use Topics Alcohol use: Not Currently Drug use: No Family History: FAMILY HISTORY Problem Relation Age of Onset other (Celiac disease) Mother Hypertension Father No Known Problems Sister No Known Problems Sister other (other) Brother No Known Problems Brother No Known Problems Brother No Known Problems Brother Diabetes Maternal Grandmother Breast Cancer Maternal Grandmother No Known Problems Maternal Grandfather Hypertension Paternal Grandmother Colon Cancer Paternal Grandmother Hyperlipidemia Paternal Grandmother Cancer Paternal Grandfather Bladder Cancer No Known Problems Son Review of Systems: Nausea with decre (more content not included)... [facility] 02-17-2024 History of Present illness Narrative Images from the original note were not included. [facility] [place] OUTPATIENT VISIT DATE February 17, 2024 OUTPATIENT VISIT TYPE CONSULT REFERRING PROVIDER: Danii Weinberg APRN.SAMPLE MOUNTER Recommendations from today's consultation will be conveyed through the electronic medical record. History of Present Illness: 28 year old at 10w2d with Estimated Date of Delivery: 09/12/24 presenting for consultation with Maternal- Medicine at the [facility] in the setting of history two previous deliveries. has also been complicated by hyperemesis gravidarum, anxiety/depression, obesity BMI 33, history viral myocarditis, anxiety and depression. Currently using zofran pump with significant improvement in hyperemesis symptoms. Has no current bleeding, abdominal pain or other obstetric concerns. Unfortunately having family stress, is following with therapist and psychiatry. Is able to tolerate Cymbalta which she re-started, hoping this will optimize things. No cardiopulmonary complaints. Her relevant histories have been updated and are reviewed below: Obstetric History: # 1 - Date: 08/15/20, Sex: Male, Weight: 4 lb 10 oz (2.098 kg), GA: 33w2d, Delivery: Vaginal, Spontaneous, Apgar1: 7, Apgar5: 8, Living: Living, Comments: fall one week prior to delivery, PPROM, EBL 150 mL, no lacerations, loose nuchal x1 # 2 - Date: 01/05/22, Sex: Male, Weight: 6 lb 12 oz (3.062 kg), GA: 36w0d, Delivery: , Low Transverse, Apgar1: 1, Apgar5: 6, Living: Living, Comments: c/s for arrest of descent, CPD and OP position, EBL 900mL, right broad ligament extension # 3 - Date: None, Sex: None, Weight: None, GA: None, Delivery: None, Apgar1: None, Apgar5: None, Living: None, Comments: None Past Medical History: PAST MEDICAL HISTORY Diagnosis Date Anemia complicating , second trimester 07/04/2020 Contracted pelvis during depression anxiety fracture 11 years old right wrist-fell out of bunk bed H/O delivery, currently Hyperemesis gravidarum ER: 01/29/2024 Injury of right ankle 09/10/2023 Myocarditis ([facility]) age 18 months [address] Lay--recheck age 18 yrs PMH - PAST MEDICAL HISTORY OF 06/2007 Right wrist fracture PMH - PAST MEDICAL HISTORY OF normal color vision depression Recurrent major depressive disorder, in partial remission ([facility]) 11/03/2020 Sprain of right ankle 09/10/2023 Sprain of unspecified ligament of right ankle, initial encounter 09/10/2023 Unspecified injury of right ankle, subsequent encounter 09/10/2023 Past Surgical History: PAST SURGICAL HISTORY Procedure Laterality Date DELIVERY ONLY 01/05/2022 [facility]CS PAST SURGICAL HISTORY OF wisdom teeth Medications: Current Outpatient Medications on File Prior to Visit Medication Sig multivitamin (CALIXTO ) 65 mg iron- 1 mg tab once daily. famotidine (PEPCID) 20 mg tablet two times a day. PUMP SET MISC Zofran aspirin 81 mg cap Take 81 mg by mouth once daily. Starting at 12 weeks. promethazine HCl (PHENERGAN ORAL) Take 25 mg by mouth every 6 hours. ondansetron (ZOFRAN) 4 mg tablet Take 1 tablet by mouth every 8 hours as needed for nausea/vomiting. VRAYLAR 3 mg capsule Take 3 mg by mouth once daily. traZODone (DESYREL) 50 mg tablet DULoxetine (CYMBALTA) 60 mg capsule Take 60 mg by mouth once daily. pyridoxine, vitamin B6, (VITAMIN B6) 50 mg tablet Take 1 tablet by mouth every 12 hours. (Patient not taking: Reported on 02/17/2024) doxylamine-pyridoxine, vit B6, 10-10 mg TbEC Take 2 tabs at night. If symptoms persist after 2 days add one tab in the morning. If symptoms still persist after 4 days add a tab mid-day (Patient not taking: Reported on 02/03/2024) hydrOXYzine pamoate (VISTARIL) 50 mg capsule Take 2 capsules by mouth twice daily. (Patient not taking: Reported on 02/03/2024) Allergies: ALLERGIES Allergen Reactions Pollen Other: See Comments Nasal congestion and drainage Social History: Social History Tobacco Use Smoking status: Never Smokeless tobacco: Never Vaping Use Vaping Use: Never used Substance Use Topics Alcohol use: Not Currently Drug use: No Family History: FAMILY HISTORY Problem Relation Age of Onset other (Celiac disease) Mother Hypertension Father No Known Problems Sister No Known Problems Sister other (other) Brother No Known Problems Brother No Known Problems Brother No Known Problems Brother Diabetes Maternal Grandmother Breast Cancer Maternal Grandmother No Known Problems Maternal Grandfather Hypertension Paternal Grandmother Colon Cancer Paternal Grandmother Hyperlipidemia Paternal Grandmother Cancer Paternal Grandfather Bladder Cancer No Known Problems Son Review of Systems: Nausea with decreasing emesis as noted in HPI. Also gets headaches intermittently Otherwise negative other than as noted above. Physical Exam: BP 112/70 Wt 176 lb 6.4 oz (80 kg) LMP 12/07/2023 (Exact Date) BMI 32.26 kg/m Gen: Well-appearing, no acute distress CV/Resp: Non-labored breathing on room air Abd: Gravid, non-tender during ultrasound Ext: Moving spontaneously, no significant edema b/l Bedside ultrasound shows single viable IUP normal FHR Assessment and Plan: 28 year old at 10w2d presenting for MFM consultation due to history of two prior deliveries, as well as some additional complications including anxiety/depression, obesity BMI 33, history viral myocarditis, anxiety and depression, hyperemesis. She is doing fairly well today. We discussed risk of recurrent and evolving landscape of prevention. In particular we discussed removal of Jacob FDA approval due to lack of proven effectiveness in preventing recurrent (she was on Jacob last ). We did discuss that vaginal progesterone may reduce risk recurrent in high risk patients when cervical shortening noted. Therefore recommend cervical length screening 16, 18, 20 and 22 weeks. Recommend vaginal progesterone and cerclage discussion if TV CL < 25 mm. Summary of Recommendations: Problem List Items Addressed This Visit Cardiovascular History of viral myocarditis Overview 02/21/2020 Patient has a history of viral myocarditis at age 18 months. She last saw her warp trucker Dr. Lay at [facility] at age 19. Was cleared for participation in sports by cardiology as a teenager. She states she does not take antibiotics prior to dental procedures.TKRN History of viral myocarditis discussed along with risks/implications. Patient states she had last ECHO/cardiology assessment at age 19 and was cleared by her team at [facility]. Records reviewed in Care Everywhere 2013 echo: Summary: Normal echocardiogram. Given full recovery, anticipate low risk for cardiovascular complications this . Gastrointestinal Hyperemesis affecting , antepartum Overview Reports has lost 12 lb since positive test. Has been in ER 4 times, admitted Rotating Phenergan and Zofran. Taking Vit B6 and Unisom at night. Will arrange for IV therapy for Friday at hospital. 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 Has psychiatrist, tolerating cymbalta (02/17/24) Denies thoughts of self harm or harming others. Psychiatry Tetrahydrocannabinol (THC) use disorder, mild, abuse Overview 02/04/24 Has not used since + HPT. Written info provided about marijuana in . 02/17/24 continued abstinence, discussed importance of not using as can worsen HG Other Family history of spina bifida Overview 02/04/24 Taking PNV. Offer MSAFP Obesity affecting in first trimester - Primary Overview Pre BMI 33 Early anatomy 16w Detailed anatomy 20w Growth 32 and 36w Other Visit Diagnoses 10 weeks gestation of Thank you for allowing us to participate in the care of this patient. Please do not hesitate to contact our office with any questions or concerns. Consultation requested by Danii Weinberg AIR EXPORT OPERATIONS AGENT for an opinion regarding above complications. My final recommendations will be communicated back to the requesting physician by way of shared Medical record or letter to requesting physician via US mail. Medical Decision Making: Problems: Moderate: 2+ stable chronic illnesses and New problem with uncertain prognosis Risk: Moderate: Moderate risk from testing/treatment Medical Decision Making Level: 4 - Moderate Vijay Gordon MD February 17, 2024 10:07 AM documented in this encounter [facility] 02-13-2024 Telephone encounter Note Forms faxed back to [employer]. Called and spoke with patient. She is feeling better with the pump. Able to eat and keeping food/fluids down. Bibiana Hernandes RN [facility] 02-13-2024 Miscellaneous Notes Forms faxed back to [employer]. Called and spoke with patient. She is feeling better with the pump. Able to eat and keeping food/fluids down. Bibiana Hernandes RN Signed and to nurse desk. Please call patient to see how she's doing. Danii Weinberg APRN.EMRE Received fax form for [employer] for plan of care for hyperemesis. Signature is needed from Danii Carter. Form on her desk for signature documented in this encounter [facility] 02-13-2024 Telephone encounter Note Signed and to nurse desk. Please call patient to see how she's doing. Danii Weinberg APRN.SAMPLE MOUNTER [facility] 02-12-2024 Telephone encounter Note Received fax form for [employer] for plan of care for hyperemesis. Signature is needed from Danii Carter. Form on her desk for signature [facility] 02-09-2024 Telephone encounter Note 9w1d [employer] nurse called to report that there was an error in the amount of the Zofran loading dose. States it may have been a dispatch supervisor error in her chart. She gave her 2 MG Zofran loading dose instead of 3 MG. Patient did well with the 2 MG dose. FYI only. Bibiana Hernandes RN [facility] 02-09-2024 Miscellaneous Notes 9w1d [facility] nurse called to report that there was an error in the amount of the Zofran loading dose. States it may have been a dispatch supervisor error in her chart. She gave her 2 MG Zofran loading dose instead of 3 MG. Patient did well with the 2 MG dose. FYI only. Bibiana Hernandes RN documented in this encounter [facility] 02-04-2024 Telephone encounter Note Orders were faxed to [facility] and [facility] Outpatient infusion. Please check with patient or hospital that she has been scheduled. Bibiana Hernandes RN [facility] 02-04-2024 Miscellaneous Notes Orders were faxed to [facility] and [facility] Outpatient infusion. Please check with patient or hospital that she has been scheduled. Bibiana Hernandes, RN Patient needs Zofran pump. Form filled out and to nurses' desk. Also recommend IV fluids on Friday at [facility]. Please assist in scheduling. Danii Weinberg APRN.CNP documented in this encounter [facility] 02-04-2024 Telephone encounter Note Referral to [facility]. Sent to [place] team to assist with scheduling. [facility] 02-04-2024 Miscellaneous Notes Referral to [facility]. Sent to [place] team to assist with scheduling. documented in this encounter [facility] 02-04-2024 Telephone encounter Note Patient needs Zofran pump. Form filled out and to nurses' desk. Also recommend IV fluids on Friday at [facility]. Please assist in scheduling. Danii Weinberg APRN.CNP [facility] 02-04-2024 Note HNO ID: [id number] Author: MICHAELLE RICHTER LPN Service: ? Author Type: LICENSED NURSE Type: Progress Notes Filed: 02/04/2024 15:04 Note Text: Rigging Up Man offered: Patient declines. [facility] 02-04-2024 History of Present illness Narrative Rigging Up Man offered: Patient declines. OB point of care ultrasound was performed. See imaging tab for details. Yvonne Niño LPN INITIAL OB ASSESSMENT HPI: Kimberly is a 28 year old White Female here to establish Obstetrical Care. Patient's last menstrual period was 12/07/2023 (exact date). from OB Dating Form. was planned Complaints: Abdominal pain (cramping) and Severe Vomiting OB History T0 L2 SAB0 IAB0 Ectopic0 Multiple0 Live Births2 Previous history: Prior : yes x 1 History of 4th degree laceration: No History of shoulder dystocia: No History of Hypertensive disorders including pre-eclampsia or gestational hypertension: No History of gestational diabetes: No Patient's Risk Screening for delivery: Have you had a prior hernández between 20w and 36w6d? Yes Did you present in active spontaneous labor or have ruptured membranes, or advanced cervical dilation (greater than or equal to 4 cm) or effacement? Yes How many pregnancies have you had before? 2 Did you have a previous baby with a GBS Infection? No Please select all that apply for any prior : N/A MEDICAL/PSYCHOSOCIAL HISTORY: History of hemorrhage or bleeding concerns: No Thyroid Disease: No History of chronic hypertension: No History of pre-existing diabetes: No ABO/RH(D) Date Value Ref Range Status 07/17/2021 A POSITIVE Final BMI 32.56 kg/(m^2) Last Pap: 06/28/2021 History of abnormal pap: No Prior treatment for cervical dysplasia: none. History of STDs: None Partner History of STDs: None Did you have a partner with Herpes? No Tobacco use: No E-Cigarette/Vaping Use: No Caffeine use: No Drug use: No Alcohol use: No Multivitamin with Folic acid: No Would refuse blood transfusion if medically necessary: No Social Needs: How often does this describe you? I don't have enough money to pay my bills: Never Within the past 12 months, have you worried that your food would run out before you had money to buy more? Never In the past 12 months, has lack of reliable transportation kept you from going to medical appointments or work, or from getting things needed for daily living? Never In the past 12 months, have you had any concerns about having a place to live, or about the condition or quality of your housing? Never Social History: Do you have any history of depression, anxiety, PTSD, or other mood problems? Yes Do you have a history of abuse or trauma that may impact your experience? No Are you currently employed? Yes Depression/Anxiety Screening: denies, admits to symptoms of depression. OB Depression and Anxiety Screening- This Encounter (since 02/03/2024) Over the past 2 weeks have you felt down, depressed, or hopeless? Negative Over the past two weeks, have you felt little interest or pleasure in doing things? Negative Feeling nervous, anxious or on edge 1-Several days Not being able to stop or control worrying 1-Several days Anxiety Pre-Screening Total (If >/= 3 additional questions will be reviewed) 2 Genetic Screening: Partner present: No Patient verbalized knowledge of partner family health history: Yes Do you or your partner have any personal or family history of defects not previously discussed: No Do you have history of a complicated by anomaly, genetic condition, or demise: No OB Risk Screening: Completed, no positive findings documented. 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 Lay--recheck age 18 yrs PMH - PAST MEDICAL HISTORY OF 06/2007 Right wrist fracture PMH - PAST MEDICAL HISTORY OF normal color vision depression PAST SURGICAL HISTORY Procedure Laterality Date DELIVERY ONLY 01/05/2022 [facility] PAST SURGICAL HISTORY OF wisdom teeth Current Outpatient Medications Medication Sig Dispense Refill ondansetron (ZOFRAN) 4 mg tablet Take 1 tablet by mouth every 8 hours as needed for nausea/vomiting. 30 tablet 1 doxylamine-pyridoxine, vit B6, 10-10 mg TbEC Take 2 tabs at night. If symptoms persist after 2 days add one tab in the morning. If symptoms still persist after 4 days add a tab mid-day 100 tablet 0 VRAYLAR 3 mg capsule Take 1 capsule by mouth once daily. traZODone (DESYREL) 50 mg tablet hydrOXYzine pamoate (VISTARIL) 50 mg capsule Take 2 capsules by mouth twice daily. DULoxetine (CYMBALTA) 60 mg capsule Take 60 mg by mouth once daily. No current facility-administered medications for this visit. Allergies As of Date: 02/04/2024 Allergen Noted Reaction POLLEN 12/05/2011 Other: See Comments Fully Assessed 12/25/2023 Does patient have penicillin allergy: No REVIEW OF SYSTEMS: GENERAL: Negative for: Fever or Chills HEENT: Negative for: Impaired Vision, Ringing in Ears, Nosebleeds + headaches NECK: Negative for: Swelling, Stiffness + neck pain RESPIRATORY: Negative for: Cough, Shortness of breath, Wheezing GASTROINTESTINAL: Negative for: Heartburn, Constipation, Diarrhea, Blood in stool, + severe nausea and vomiting MUSCULOSKELETAL: Negative for: Muscle or joint pain, stiffness, Joint swelling NEUROLOGIC/PSYCHIATRIC: Negative for: Weakness, Paralysis, Numbness, Tingling, Tremor, Memory loss + anxiety and depression SKIN: Negative for: Rash, Itching GENITOURINARY: Negative for: vaginal itching, vaginal discharge, hematuria or dysuria PHYSICAL EXAM: BP 108/62 Pulse 72 Resp 12 Ht 5' 2 (1.58m) Wt 178 lb (80.7kg) SpO2 98% LMP 12/07/2023 BMI 32.55 kg/(m^2). GENERAL: pleasant in no apparent distress DERMATOLOGY: Normal, without lesions, non-icteric, and non-hirsute NECK: Supple, full range of motion, and no adenopathy CHEST: Normal inspiratory effort BREAST: soft, non-tender, symmetric, no dominant mass, normal nipple-areolar complex, no lymphadenopathy, and no nipple discharge ABDOMEN: soft, non-tender, and no masses NEURO: alert and oriented x3,exam grossly non-focal PELVIS: External genitalia normal without lesions. Perineal body intact. No vaginal or cervical lesions. Cervix closed. Uterus 8 week size. No adnexal masses or tenderness. Clinical Pelvimetry: Pelvimetry clinically assessed as adequate Limited OB ultrasound exam: single intrauterine and positive cardiac activity ASSESSMENT: 28 year old at 8w3d wks gestational age PLAN: 1) Patient oriented to practice. Patient given new OB orientation folder. Discussed nutrition, folic acid supplementation, dietary guidelines, exercise, smoking, alcohol, caffeine, and drug use. Discussed gestational weight gain guidelines. Discussed routine OB labs including STD/HIV. Discussed how to access Your guide to a health and the Electronic Publishing Specialist. Discussed hemoglobin electrophoresis. Patient: Declines Reviewed midwifery and abstract searcher services that are available. 2) Screening: Hemoglobin A1C: ordered Baby Aspirin: The patient has been counseled about the potential benefits of low dose aspirin in and our recommendation that this be offered to all patients, regardless of whether they meet the high risk criteria specified above. She Accepts Aneuploidy Screening: Discussed aneuploidy screening, nuchal translucency/first trimester early anatomy ultrasound and NIPT. The risks/benefits and limitations of NIPT/aneuploidy screening were reviewed including the potential for false negative and false positive results. The availability of genetic counseling was reviewed. Information on aneuploidy screening was provided. The patient chooses to proceed with First trimester early anatomy ultrasound (12-13w6d) Myriad Carrier Screening: Discussed myriad carrier screening. We discussed the availability of professional-society guided carrier screening and reviewed the conditions screened and limitations of screening. The availability of genetic counseling was reviewed. Information on carrier screening was provided. The patient Accepts 3) Patient offered option of Virtual Visits. Patient unsure. May consider in future. ACTIVE PROBLEM LIST Encounter for Supervision of High Risk in First Trimester, Antepartum - 10/30/2021 Comment: Care Checklist Vaccines: [] Flu vaccine [] declined [] RSV vaccine 32 0/7 - 36 6/7 (Apr - Sep) [] declined [] COVID vaccine [] declined [] TDaP 27-36 [] declined First trimester: [x] Dating US [x] 1st tri labs [x] Pap smear [x] Carrier screening [] declined [] NIPT screening - considering [] declined [x] First trimester anatomy scan [] declined [x] universal ASA ordered (start 12w-16w) [] declined [] M Power Consult [] not indicated [] declined Second trimester: [] AFP [] declined [] Anatomy scan [] Mode of Delivery - [] Feeding - [] Pump ordered [] Diabetes screen [] CBC, RPR Third trimester (28-30 weeks): [] Consent [] Contraception - [] Pharmacy Assistant Third trimester (36-40 weeks): [] GBS [] Presentation - [] Scheduled [] yes - Hibiclens, pre-op instructions, CBC, T&S ordered [] no [] H&P Hyperemesis Affecting , Antepartum - 02/04/2024 Comment: Reports has lost 12 lb since positive test. Has been in ER 4 times, admitted once. Rotating Phenergan and Zofran. Taking Vit B6 and Unisom at night. Will arrange for IV therapy for Friday at hospital. Arranging for Zofran pump. H/O Delivery, Currently - 06/12/2021 History of Section - 02/04/2024 Comment: 02/04/24 Delivery 2021 36 weeks via c/s after going into labor at 35w6d. AOD, CPD. MFM consult placed. 10/30/21-Growth US at 32 weeks. Continue [place] injections. Kanwal Chow APRN.CNM 08/14/21 - will be started progesterone injections - Yobani Darby MD 06/12/2021 Patient delivered her previous child at 33 weeks due to PPROM. She states she fell 1 week prior to the labor. Discussed Jacob. Patient is advised to watch the video and discuss her delivery and the possibility of medication during with Dr. Alfredo at her new OB visit. TKRN Obesity Affecting in First Trimester - 02/04/2024 Comment: Pre BMI 33 Anxiety During - 02/04/2024 Depression Affecting - 02/21/2020 Comment: Currently unable to keep Cymbalta or Vistaril down with vomiting. Sees [id number] for counseling. Denies thoughts of self harm or harming others. Discussed need to control nausea so medications can be taken Family History of Spina Bifida - 06/12/2021 Comment: 02/04/24 Taking PNV. 06/12/2021 Father of the baby's aunt with spina bifida. Patient declines aneuploidy screening and genetic carrier screening testing.Byron Strong RN Tetrahydrocannabinol (Thc) Use Disorder, Mild, Abuse - 02/29/2020 Comment: 02/04/24 Has not used since + HPT. Written info provided about marijuana in . 10/30/21-Last marijuana use 3 weeks ago. Used for nausea. Reviewed risks of using during and to baby. Advises cessation. She does not plan to use further. Reassess near term. Kanwal Chow APRN.CNM History of Viral Myocarditis - 02/21/2020 Comment: 02/21/2020 Patient has a history of viral myocarditis at age 18 months. She last saw her warp trucker Dr. Lay at [facility] at age 19. Was cleared for participation in sports by cardiology as a teenager. She states she does not take antibiotics prior to dental procedures.TKRN 09/04/20 Records release signed to obtain echocardiogram from [facility]. Had 33 week delivery without complication in past Follow up in 4 weeks or sooner prn. Plan for NT scan between 12w0d and 13w6d gestation. Danii Weinberg APRN.SAMPLE MOUNTER documented in this encounter [facility] 02-04-2024 Note HNO ID: [id number] Author: YVONNE NIÑO LPN Service: ? Author Type: LICENSED NURSE Type: Progress Notes Filed: 02/04/2024 15:04 Note Text: OB point of care ultrasound was performed. See imaging tab for details. Yvonne Niño LPN [facility] 02-03-2024 Note HNO ID: [id number] Author: DANII WEINBERG APRN.SAMPLE MOUNTER Service: ? Author Type: Nurse Practitioner Type: Progress Notes Filed: 02/04/2024 15:04 Note Text: INITIAL OB ASSESSMENT HPI: Kimberly is a 28 year old White Female here to establish Obstetrical Care. Patient's last menstrual period was 12/07/2023 (exact date). from OB Dating Form. was planned Complaints: Abdominal pain (cramping) and Severe Vomiting OB History T0 L2 SAB0 IAB0 Ectopic0 Multiple0 Live Births2 Previous history: Prior : yes x 1 History of 4th degree laceration: No History of shoulder dystocia: No History of Hypertensive disorders including pre-eclampsia or gestational hypertension: No History of gestational diabetes: No Patient's Risk Screening for delivery: Have you had a prior hernández between 20w and 36w6d? Yes Did you present in active spontaneous labor or have ruptured membranes, or advanced cervical dilation (greater than or equal to 4 cm) or effacement? Yes How many pregnancies have you had before? 2 Did you have a previous baby with a GBS Infection? No Please select all that apply for any prior : N/A MEDICAL/PSYCHOSOCIAL HISTORY: History of hemorrhage or bleeding concerns: No Thyroid Disease: No History of chronic hypertension: No History of pre-existing diabetes: No ABO/RH(D) Date Value Ref Range Status 07/17/2021 A POSITIVE Final BMI 32.56 kg/(m2) Last Pap: 06/28/2021 History of abnormal pap: No Prior treatment for cervical dysplasia: none. History of STDs: None Partner History of STDs: None Did you have a partner with Herpes? No Tobacco use: No E-Cigarette/Vaping Use: No Caffeine use: No Drug use: No Alcohol use: No Multivitamin with Folic acid: No Would refuse blood transfusion if medically necessary: No Social Needs: How often does this describe you? I don't have enough money to pay my bills: Never Within the past 12 months, have you worried that your food would run out before you had money to buy more? Never In the past 12 months, has lack of reliable transportation kept you from going to medical appointments or work, or from getting things needed for daily living? Never In the past 12 months, have you had any concerns about having a place to live, or about the condition or quality of your housing? Never Social History: Do you have any history of depression, anxiety, PTSD, or other mood problems? Yes Do you have a history of abuse or trauma that may impact your experience? No Are you currently employed? Yes Depression/Anxiety Screening: denies, admits to symptoms of depression. OB Depression and Anxiety Screening- This Encounter (since 02/03/2024) Over the past 2 weeks have you felt down, depressed, or hopeless? Negative Over the past two weeks, have you felt little interest or pleasure in doing things?? Negative Feeling nervous, anxious or on edge 1-Several days Not being able to stop or control worrying 1-Several days Anxiety Pre-Screening Total (If >/= 3 additional questions will be reviewed) 2 Genetic Screening: Partner present: No Patient verbalized knowledge of partner family health history: Yes Do you or your partner have any personal or family history of defects not previously discussed: No Do you have history of a complicated by anomaly, genetic condition, or demise: No OB Risk Screening: Completed, no positive findings documented. 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 Lay--maribel age 18 yrs PMH - PAST MEDICAL HISTORY OF 06/2007 Right wrist fracture PMH - PAST MEDICAL HISTORY OF normal color vision depression PAST SURGICAL HISTORY Procedure Laterality Date DELIVERY ONLY 01/05/2022 [facility] PAST SURGICAL HISTORY OF wisdom teeth Current Outpatient Medications Medication Sig Dispense Refill ondansetron (ZOFRAN) 4 mg tablet Take 1 tablet by mouth every 8 hours as needed for nausea/vomiting. 30 tablet 1 doxylamine-pyridoxine, vit B6, 10-10 mg TbEC Take 2 tabs at night. If symptoms persist after 2 days add one tab in the morning. If symptoms still persist after 4 days add a tab mid-day 100 tablet 0 VRAYLAR 3 mg capsule Take 1 capsule by mouth once daily. traZODone (DESYREL) 50 mg tablet hydrOXYzine pamoate (VISTARIL) 50 mg capsule Take 2 capsules by mouth twice daily. DULoxetine (CYMBALTA) 60 mg capsule Take 60 mg by mouth once daily. No current facility-administered medications for this visit. Allergies As of Date: (more content not included)... [facility] 02-03-2024 Instructions Danii Weinberg APRN.SAMPLE MOUNTER - 02/03/2024 1:58 PM EDT Images from the original note were not included. Please select the following link to access the [facility] Your Guide to a Healthy . [email or web address] MORNING SICKNESS IN by Shari Weiss M.D. for [facility] As you may already know, morning sickness can often be more appropriately called evening sickness or nrryj-ysjuwd-bp-the-day sickness. While there are the elijah few, most women (50-90%) experience some degree of nausea, some have vomiting, and a few develop a severe form of vomiting during called hyperemesis gravidarum. What causes the nausea and vomiting of ? We can't explain why some people feel fine and others are green for months. Even the same woman may feel vastly different in each . There is some relationship between nausea and the level of the hormone hCG. In twin pregnancies, and in other situations where the hCG is greater than expected, nausea and vomiting tend to be worse. In a destined for miscarriage, hCG levels tend to be low, and nausea is often less severe. This being said, a lack of nausea doesn't guarantee that the is destined for miscarriage. The fact that nausea and vomiting are often signs of a healthy can offer a silver lining in the dark cloud of miserable nausea. How long will the nausea last? Fortunately, for most women, nausea and vomiting are a first trimester event, peaking at week 9-10 and waning by week 14-16. When you are feeling bad the weeks can go by slowly but most moms do feel tremendously better by the middle of the . Whether morning sickness is a brief experience or lasts through most of the , there are treatments that can make the weeks or months more tolerable. What can you do about it? Diet: See what works for you. Try eating bland dry foods, and avoid fatty or spicy foods. It is okay to eat a less than perfectly balanced diet in the first trimester. Have your liquids separately from dry foods. Try sports drinks, water, clear juices, J Luis-aid, or non-caffeinated tea. Avoid carbonated beverages that fill up your stomach. Try eating lots of little meals. If you tend to feel sick when you first wake up, leave crackers next to the bed for a quick snack before rising. Keeping healthy snacks with you all day to nibble when you feel queasy can sometimes even prevent nausea from starting. vitamins and nausea: Pre- vitamins can sometimes worsen nausea in . While folate is necessary, especially early in the , it comes as a smaller pill that many people find more tolerable than the complete vitamin pill. Ask your practitioner if it is okay to temporarily replace vitamins and iron with just a folate pill if you find a significant worsening in the level of your nausea from the vitamins. Alternative therapies: Acupressure may be used to treat nausea in , and is not known to have any risks for the fetus. Wristbands (marketed for seasickness) that put pressure on an acupressure point at the wrist are often available at drugstores or travel stores. Poncho root is used for nausea in many traditional cultures. Some women take fresh grated poncho or poncho tablets. It is possible that the pill form contains other ingredients or contaminants, so you may want to try fresh poncho first. Medications: Emetrol is the only nausea medication approved for use in . It is available over the counter and is soothing to the stomach. A prescription medication called Bendectin was available in the -1979's and was shown to be safe in , but the company stopped marketing it in the [place] due to the costs of liability coverage. Bendectin contained 10 milligrams of vitamin B6 and 10 milligrams of Doxylamine. Two tablets were given at bedtime and a total of up to 4 tablets could be used in a 24-hour period. Interestingly, Unisom , which contains a higher dose (25 mg.) of the same medication, Doxylamine, is currently marketed as an qkwl-gdd-fxkpnkh sleeping pill. Ask your practitioner if creating a vitamin B6/Doxylamine combination with mukv-dkh-rnkjouz medications would be safe for you. Prescription medications like Compazine and Phenergan can be used if the benefits outweigh possible risks, but these have not been clearly shown to be safe in . Zofran , an expensive anti-nausea medication often used to treat nausea from chemotherapy, can also be used. Can I throw up so much it harms the baby? The act of vomiting cannot hurt your fetus, which is protected inside the uterus. If you get dehydrated or develop a metabolic imbalance, this can be unhealthy. As long as you can keep down liquids, you and your baby will generally do all right. Eat when you feel able. If you are unable to keep anything down, or if you notice potential signs of dehydration such as lightheadedness, or concentrated and/or infrequent urination, call your practitioner. Some women need brief hospital admission for intravenous fluids and anti-nausea medications if their condition becomes severe. This severe form of nausea and vomiting is called Hyperemesis Gravidarum. As with many symptoms of , remind yourself that this, too, shall pass, and you'll have a wonderful baby to show for it! TREATMENT OPTIONS, SHORT VERSION: Frequent small meals Hydrate throughout day Sea-Bands wrist pressure point applicators Poncho root (powdered, in capsules) 250mg four times a day Vitamin B6 25 mg tablet three times a day Also may be taken with half a tablet of Unisom three times a day (Doxylamine 12.5 mg) If severe (weight loss, dehydration), call us and come in for IV hydration and possible medication in the form of injections. Prescription medications such as Phenergan, Compazine, Reglan Ondansetron (Zofran ) March 18, 2020 This sheet talks about exposure to ondansetron in a and while . This information should not take the place of medical care and advice from your healthcare provider. What is ondansetron? Ondansetron is a medication used to treat nausea and vomiting that may be caused by surgery, chemotherapy, or radiation therapy. Ondansetron has also been prescribed during to help with symptoms of nausea and vomiting in (NVP). NVP is also referred to as morning sickness . Ondansetron is taken by mouth, infused into a vein (by IV) or given by injection into a muscle (IM). Ondansetron is sold under the brand name Zofran . What can I do to help control my nausea and vomiting? MotherSavvySource for Parents has a helpful fact sheet on nausea in with recommendations. You can review it here: https://mothertobaby.org/fact-she ets/qyunvz-zsytnpys-fjmxfailq-nvp /pdf/. Also, eating small meals often, drinking plenty of clear fluids, and avoiding triggers (such as odors, heat, and spicy or high fat foods) can help. Talk to your healthcare provider about which NVP treatments are right for you. I take ondansetron. Can it make it harder for me to become ? There are no studies that have looked to see if ondansetron could make it harder for a person to get . Studies in animals did not find that ondansetron would affect the ability to get . Does taking ondansetron increase the chance for miscarriage? Miscarriage can occur in any . One study did not find that miscarriage happened more often for those who reported that they used ondansetron in the first trimester of . Does taking ondansetron increase the chance of defects? Every starts out with a 3-5% chance of having a defect. This is called the background risk. Most studies have found no increased chance for defects among thousands of people who used ondansetron in the first trimester of . A few studies reported a very small (less than 1%) increase in the chance for a cleft palate (an opening in the roof of the mouth that may be repaired with surgery) or a heart defect. Because of other factors that could affect the pregnancies exposed to ondansetron, it is not known if ondansetron actually increases the chance of defects. Could taking ondansetron cause other complications? Studies did not find a higher chance of loss, delivery (delivery before 37 weeks of ), or low weight when ondansetron was used during . At higher doses, there have been reports that ondansetron use might cause a heart rhythm problem (called QT interval prolongation) in the person taking ondansetron. In severe cases, this could become an abnormal heart rhythm known as Torsades de Pointes. If you are taking ondansetron, you can talk to your healthcare provider about how to watch for changes in your heart rhythm. Does taking ondansetron in cause long-term problems in behavior or learning for the baby? One study looked at 78 infants who were exposed to ondansetron at any time during . The infants were looked at between 7 days to 2 months of age and did not show any signs of unusual behaviors. A single follow-up survey for about 25 of these children was sent in by the parents. The children were between 1 to 5 years old. The survey asked about behavior. The surveys did not report behavior differences in these children compared to children who were not exposed ondansetron during . There are no other studies looking at the use of ondansetron in and long-term effects for the baby. Can I breastfeed while taking ondansetron? There have been no studies in humans looking at the use of ondansetron during . Studies in animals suggest that ondansetron enters breast milk, but the effects of ondansetron on a infant are not known. If ondansetron use is necessary, it is not usually a reason to stop . A different drug may be considered, especially while a or . Be sure to talk to your healthcare provider about all your questions. I take ondansetron. Can it make it harder for me to get my partner or increase the chance of defects? There are no human studies looking at male use of ondansetron. Animal studies have not shown any effect on male fertility. In general, exposures that fathers and sperm donor have are unlikely to increase risks to a . For more information, please see the BioBeats fact sheet Paternal Exposures at https://mothertobaby.org/fact-she ets/kubibhrd-nlzmbhcza-cibqtwscy/ pdf/. Thank you for your interest in Women's Behavioral Health at [facility]. Your provider has referred you for counseling services. Below you will find a list of options. Psychotherapy Services at [facility] Call Behavioral Health Access Line at [phone] to schedule Individual psychotherapy In-person or virtual Wait time for first evaluation may be 12 or more weeks. Wait list spots may be available. Due to the high volume of patients this option is recommended if you are looking for short term acute symptom coping strategies. 2-841-6-QMUM4CGFC - [facility] Mental Health Hotline If you are in suicidal crisis, please call or text 2-465-425-TALK ( ) or visit the National Suicide Prevention Lifeline website. mchb.[facility] hospital[facility].gov If you are in crisis, call 261 or go to your nearest Emergency Department Here are some links for wonderful Providers here in the community and surrounding areas. Do not hesitate to contact their offices, many are offering virtual visits during this time. Psychotherapy Services outside of [facility] Support International Online Provider Directory https://Concentra.Company/ - can assist in finding providers in your area that might be more extensive then the list below. [facility] - [place], [place] [address] [facility] [address] [place] [address] [facility] [address] [place] [address] [facility] [address] [place] [address] Kevin Matamoros MD [address] [place] [address] [facility] [address] [facility], [address] [place] [address] [facility] [address] [place] [address] [facility] Services [place] / [place] [phone]/ [phone] Nela Lisa [address] [facility] [address] [facility] [phone] Aves of Counseling and Mediation [place] / [place] [phone] Behavioral health services of [facility] [address] [place] [address]/ [place] [phone] Chel Matos, MICHAEL, CLC [facility] Workshops, telehealth and at home visits. [phone] Humanistic counseling center [address] [facility], [place], [place], [place], [place], [place], [facility], [place], [place], [place], [place], [place], [place], [facility], [place], [place] ,[facility], [place], [place],[facility], [facility], [place], [facility], [facility], [place] www.[facility] bremertoner.co [phone] Psychotherapy resources outside of [facility] are listed below [facility] Web: https://www.Senscient/ Support International Online Provider Directory https://Zagster/ [facility] https://PressPad/ Partners for Behavioral Health and Wellness Web: https://Catch Media/ Center for Effective Living Web: https://XOJETliving.Company/ LifeStance Web: https://7 Cups of Tea.Company/location/s pietro/cynthia/ [facility] Web: https://www.signaturenew [facility].or / [facility] Web: https://Forsake.WePlann/ Recovery Resources Mental health and substance abuse help Web: https://Straatum Processware.UNYQ & RESOURCES Support International Direct peer support and connection to professional resources Non-Emergency Helpline Phone: / Text: [phone] Web: https://www..net/ Online Provider Directory: https://Zagster/ Online Support Meetings: https://www..net/get-he lp/pzp-azonyu-hjjlyir-meetings/ JODI Baby and Mine Car Repairer Services Web: https://wwwAgrisoma Biosciences/ MotherToBaby Expert information on medication use during and Text: [phone] Web: https://motherEvinance Innovation/ NATIONAL REGISTRY FOR PSYCHIATRIC MEDICATIONS Currently studying the safety of antidepressants, ADHD medications and atypical antipsychotics taken during TO PARTICIPATE CALL TOLL-FREE: Web: https://womensmentalhealth.org/re search/pregnancyregistry/ Support Groups: [facility]- Follow on facebook Baby Bistro support group led by [facility] department Resilient Mamas - Support Group [place] [facility] Health[facility].org The POEM support group [phone] Www.poemonline.org Follow on facebook - ZACH pereira Online support meetings PSI https://www..net/get-he lp/ecc-ipljmm-pownuiw-meetings/ [facility] mommy and me virtual support group 11:30-1pm Support for mothers and new babies and toddlers [place] childbirth education: Childbirth @cc.org or call [phone] CRISIS: CRISIS HOTLINE [phone], 911 or go to the nearest ER. [facility] [phone] / [facility] [phone] https://www.geneva general hospitalrb.org Crisis text line text the word HOME to [id number] [facility] [address] [facility] [address] www.Prompt.lylakishaLuminescent Technologies yMesha Miranda clinical counseling [address] [facility] [address] [place] [address] www.Anomalous Networks [phone] Holding space psychotherapy Tamara Pinto ROTOR BALANCER ASPHALT HEATER OPERATOR-S [address] [facility] www.Tistagames [phone]/ Mariano [phone] They all offer virtual. All work with trauma Support groups Online support meetings PSI https://www..net/get-he lp/vel-atcjqg-nhxlfdw-meetings/ Here are the support groups they offer: Support of parents of 1 to 4 years old children POEM ( Outreach and Encouragement for Moms) offers free support for mothers experiencing depression, anxiety, and other mood and anxiety disorders. Masks are recommended but not required. No pre-registration required. Babies in arms welcome. meetings now take place on the and Friday of each month Location: [facility] [address] [place] [address] Room 122 (library room) 7-8:00 p.m. When you enter the restorationist parking lot off of [address] the entrance door closest to our meeting room is on the front of the building toward the right. For those who are more comfortable with a virtual platform, POEM offers online support group options several days of the week. To register for an online group or to find out more about POEM, website at: https://mhaohio.org/get-help/garnet healthgrdc-lvzaez-rnhjzb/pojasen-services/ offer a confidential helpline: private Facebook group is called POEM - [place] Chapter Here are the groups they offer: Traumatic childbirth resources: Http://pattch.org/ https://www.nachoEyeQuantazam OtherInbox.Company/ Name Location (s) Phone # (s) Services Website [facility] [address] [facility], [place], [place] - [phone]; [address] [facility] [address] [place], [place]- [phone] In-Person GROUPS INDIVIDUAL THERAPY MATERNAL-INFANT MENTAL HEALTH MEDICATION MANAGEMENT PLAY AND ART THERAPY TELETHERAPY https://www.Senscient/s ervices/ Araceli juarez [facility]? [address] [place], [place] [address] ? [address], [address] [place], [place] [address] ? [place] [address] [place] [phone]? Grief Support Groups Individual Grief Counseling Spiritual Care Memorial Events https://hoffmann.[facility].org/grief-services [facility] [address] [place], [place] [address]; ; Email: conrado@Wistron InfoComm (Zhongshan) Corporation Women's Mental Health; Couples Counseling; Trauma (EMDR); Stress Management; Mood and Anxiety Related Disorders- and much more https://www.Voxel (Internap).Company/ LifeStance Numerous as they have contract providers: access website to find specific providers near you Counseling including CBT and EMDR as well as many more modalities; Medication Management; Telehealth and In-Person https://7 Cups of Tea.Company/ i3 membrane for Behavioral Health and Wellness [address] [place], [place] [address]; [phone] Personal, Family and Group Therapy; Psychological Testing and Diagnosis; Medication Management; Life and Career Coaching; Psychoanalysis; Literacy Testing; Yoga and Meditation https://LiveMusicMachine.Com.Company/ Fit Mind [place] [address] [facility] [address], [place] [address] [address] ; [address] [facility], [address] [place] [address]; Office # for both sites: Individual and Couples Counseling https://www.Koziodcmetrohealth main campus medical centerand.com/ paymentinsurance.html [facility] [place] [facility] [address], [place] [address]; Specialize in Cognitive-Behavioral Therapy (CBT) for the treatment of anxiety disorders across the lifespan. TELEHEALTH ONLY. https://ocdandanxietycenteroDouble Doodslev Stealth10/faqs [facility] [address] [place], [address] [place] [address] [facility] [place], [address] [place] [address] [facility] [address] [place], [address] [address] [place], [address], [address] [place] [address] [place], [place] [address], [address] [place] [address] [place], [address] Transportation Services To minimize patient barriers, [facility] provides transportation services to patients who qualify. If you are unable to get to your appointment at any of our facilities, please let us know. Need help now? Stop by one of our walk-in clinics to establish behavioral health care. Counseling Indvidual, Group, Couples and Family Counseling and EMDR. Medication Management Case Management benefits applications housing assistance Substance abuse treatment Medication assisted treatment https://www.st. [facility]'s [facility] partners.or g/mental-health/ [facility] OFFICE AT [facility] [address] [place] [address] [facility] OFFICE [address] [place] [address] [facility] OFFICE [address] [place], [place] [id number] TOW OFFICE (at [facility]) [address] [place] [address] [facility] SYRINGE EXCHANGE PROGRAM & HIV SCREENING [address] [place] [address] [facility] EXCHANGE PROGRAM [address] [place] [address] Behavioral Health Urgent Care: [facility] & [facility] Sites Counseling Indvidual and Group Medication Management Case Management benefits applications housing assistance Substance abuse treatment Medication assisted treatment Employment Services/ Job Training https://Moviles.comdoctor's hospital montclair medical centerFirework.org/ Recovery Resources [address] [place], [place] [address]: P: [phone] [address] [facility], [address], [place], [place] [address] P: [phone] Our services include: Addiction Mental Health Treatment Assessment Psychiatry Medical Care Employment Housing Drug and Alcohol Prevention HIV/AIDS Prevention https://www.recres.org/ [facility] [place] [address] [place] [address] [place] [address] HospitalUintamary [address] [place], [place] [address] [place] [address] [place] [address] [place] [address] [facility] [address] [place] [address] [place] [address] [address] [place] [address] TMS Therapy/ Counseling Psychocological Testing for ADHD Medication Management In-Person/ Telemedicine https://www.Agradis/zuleika ents-depression Memory & Psychological services [address] [place] [address], [place] [address] Neuropsychological Testing For ADHD https://www.memoryandpsych.com/ [facility] - Main Office [address] [place] [address] [phone] Providing qbue-go-mmrc and telehealth services. Adult Case Management Community Education and Prevention Employment Outpatient Treatment - Counseling & Psychotherapy Psychiatric Services http://www.ccwhc.org/ [facility] [place] [address] [place] [address] [facility]) [address] [place] [address] Virtual Appointments! Now offering safe and convenient virtual client appointments to anyone in [place]! Individual Therapy Couples/Relationship Therapy Trauma/EMDR Therapy Art Therapy Play Therapy Specialty Finishing Utility Person Support: Parenting Skills, Parent Child Interaction Therapy, Parent Interaction Therapy Meditation Dietitian/Squaring Machine Operator Services Group Therapy Yoga https://www.Mobile Learning Networks/ Alicia Brody [phone] Private Practice: Telehealth Only Specializes in EMDR for Trauma None documented in this encounter [facility] 01-30-2024 Telephone encounter Note Done Yobani Darby MD [facility] 01-30-2024 Miscellaneous Notes Done Yobani Darby MD Patient is agreeable. She is not taking the Vistaril. Thank you. I recommend Diclegis. Would she try this? Yobani Darby MD Patient called in to the office asking if there is anything more than Zofran that can be sent in for her. Seen in ER again yesterday. She is dry heaving this morning. Drinking water and tea. Nothing to eat today. Recommended drinking fluids with electrolytes and with some flavor. Also recommended eating small frequent snacks to keep blood sugar from lowering which can increase nausea. Bibiana Hernandes RN Zofran sent Yobani Darby MD LMP 12/07/23, approximately 7w5d. She has upcoming New OB on 02/03 with [facility]. Johanna Boland RN documented in this encounter [facility] 01-30-2024 Telephone encounter Note Patient is agreeable. She is not taking the Vistaril. Thank you. [facility] 01-30-2024 Telephone encounter Note I recommend Dicmingis. Would she try this? Yobani Darby MD [facility] 01-30-2024 Telephone encounter Note Patient called in to the office asking if there is anything more than Zofran that can be sent in for her. Seen in ER again yesterday. She is dry heaving this morning. Drinking water and tea. Nothing to eat today. Recommended drinking fluids with electrolytes and with some flavor. Also recommended eating small frequent snacks to keep blood sugar from lowering which can increase nausea. Bibiana Hernandes RN [facility] 01-30-2024 Telephone encounter Note Zofran sent Yobani Darby MD [facility] 01-30-2024 Telephone encounter Note LMP 12/07/23, approximately 7w5d. She has upcoming New OB on 02/03 with . Johanna Boland RN [facility] 12-26-2023 Telephone encounter Note BV positive. To treat with Flagyl 500mg PO BID for 7 days. 1) No alcohol during treatment and for 24 hours after last dose. 2) No intercourse during treatment. 3) Probiotic by mouth once daily for 30 days or as needed. Gisella Ayala APRN.CNP [facility] 12-26-2023 Miscellaneous Notes BV positive. To treat with Flagyl 500mg PO BID for 7 days. 1) No alcohol during treatment and for 24 hours after last dose. 2) No intercourse during treatment. 3) Probiotic by mouth once daily for 30 days or as needed. Gisella Ayala APRN.CNP documented in this encounter [facility] 12-25-2023 Note HNO ID: [id number] Author: GISELLA AYALA APRN.CNP Service: ? Author Type: Nurse Practitioner Type: Progress Notes Filed: 12/25/2023 16:18 Note Text: Kimberly Jeong is a 28 year old female who presents for vaginal pruritis, discharge, and odor for 1 week(s). Vaginal discharge: moderate amount, foul smelling, clear, and white. Itching: Some Dyspareunia: No Fever/chills: No Abdominal pain: No Bladder: Negative for dysuria or frequency Bowel: No blood in stool, pain with BM, tarry stool, persistent diarrhea or constipation Any new sexual partners or concern for STD exposure: Yes: was unfaithful Any history of STDs: None Does your partner have any new complaints: No Are you currently taking any medications to treat vaginitis: No Do you use feminine sprays, douches or deodorants: No Past medical, surgical, social history, medications and allergies reviewed and updated. OBJECTIVE: BP 110/62 Wt 187 lb (84.8kg) LMP 12/07/2023 GENERAL: Well developed, well nourished in no apparent distress PELVIC: external genitalia normal, normal Bartholin's glands, urethra, Dunthorpe's glands, no vulvar lesions, no cervical lesions, good vaginal support, physiologic discharge present, normal appearing perineal body and perianal region ASSESSMENT/PLAN: 1. Screening for STDs (sexually transmitted diseases) - ICD9: V74.5, ICD10: Z11.3 (primary diagnosis) - GONORRHEA/CHLAMYDIA NAAT 2. Vaginal irritation - ICD9: 623.9, ICD10: N89.8 - MATHIEU/TRICHOMONAS NAAT - BACTERIAL VAGINOSIS NAAT Will notify patient of test results. Gisella Ayala APRN.EMRE Medical Decision Making: Problems: Moderate: New problem with uncertain prognosis Data: Unique test(s) ordered: 3+ Risk: Low: Low risk from testing/treatment Medical Decision Making Level: 4 - Moderate [facility] 12-25-2023 History of Present illness Narrative Kimberly Jeong is a 28 year old female who presents for vaginal pruritis, discharge, and odor for 1 week(s). Vaginal discharge: moderate amount, foul smelling, clear, and white. Itching: Some Dyspareunia: No Fever/chills: No Abdominal pain: No Bladder: Negative for dysuria or frequency Bowel: No blood in stool, pain with BM, tarry stool, persistent diarrhea or constipation Any new sexual partners or concern for STD exposure: Yes: was unfaithful Any history of STDs: None Does your partner have any new complaints: No Are you currently taking any medications to treat vaginitis: No Do you use feminine sprays, douches or deodorants: No Past medical, surgical, social history, medications and allergies reviewed and updated. OBJECTIVE: BP 110/62 Wt 187 lb (84.8kg) LMP 12/07/2023 GENERAL: Well developed, well nourished in no apparent distress PELVIC: external genitalia normal, normal Bartholin's glands, urethra, Dunthorpe's glands, no vulvar lesions, no cervical lesions, good vaginal support, physiologic discharge present, normal appearing perineal body and perianal region ASSESSMENT/PLAN: 1. Screening for STDs (sexually transmitted diseases) - ICD9: V74.5, ICD10: Z11.3 (primary diagnosis) - GONORRHEA/CHLAMYDIA NAAT 2. Vaginal irritation - ICD9: 623.9, ICD10: N89.8 - MATHIEU/TRICHOMONAS NAAT - BACTERIAL VAGINOSIS NAAT Will notify patient of test results. Gisella Ayala APRN.CNP Medical Decision Making: Problems: Moderate: New problem with uncertain prognosis Data: Unique test(s) ordered: 3+ Risk: Low: Low risk from testing/treatment Medical Decision Making Level: 4 - Moderate documented in this encounter [facility] 10-20-2023 History of Present illness Narrative Chief Complaint Patient presents with: Right Hip Pain HPI Kimberly Jeong is a 27 year old female who presents here today for a same day visit. Pt here today with c/o of right hip pain that started 6 days ago. Denies any injury or known cause that she can think of that would start this. Does not feel that her pain is radiating from her back or SI joint. Pain located mostly in the right hip area, but with standing she will experience a sharp pain, jolting pain that almost feels like her leg is going to go out. Rates pain a 9/10. Pain also radiates around to the front of her leg and groin area. Once standing the pain decreases and becomes an aching pain with no radiation. Pt states she will start walking and the pain will reduce being a less of a dull ache and more tolerable. Pain at that time is a 2/10. Reports maybe noticing a warm sensation down the front of her leg/thigh area. Also noticing when trying to lift her leg up she is experiencing some pain. Has tried Ibuprofen, Tylenol and Bio Freeze. Past medical history, appointments, medications, allergies reviewed. Previous Medical History PAST MEDICAL HISTORY Diagnosis Date Anemia complicating , second trimester 07/04/2020 depression anxiety fracture 11 years old right wrist-fell out of bunk bed H/O delivery, currently Myocarditis (HCC) age 18 months [address]. Lay--recheck age 18 yrs PMH - PAST MEDICAL HISTORY OF 06/2007 Right wrist fracture PMH - PAST MEDICAL HISTORY OF normal color vision depression Previous Surgical History PAST SURGICAL HISTORY Procedure Laterality Date DELIVERY ONLY 01/05/2022 [facility] PAST SURGICAL HISTORY OF wisdom teeth Family History FAMILY HISTORY Problem Relation Age of Onset other (Celiac disease) Mother Hypertension Father No Known Problems Sister No Known Problems Sister other (other) Brother No Known Problems Brother No Known Problems Brother No Known Problems Brother Diabetes Maternal Grandmother Breast Cancer Maternal Grandmother No Known Problems Maternal Grandfather Hypertension Paternal Grandmother Colon Cancer Paternal Grandmother Hyperlipidemia Paternal Grandmother Cancer Paternal Grandfather Bladder Cancer No Known Problems Son Patient Allergies ALLERGIES Allergen Reactions Pollen Other: See Comments Nasal congestion and drainage Current Medications Current Outpatient Medications on File Prior to Visit Medication Sig VRAYLAR 3 mg capsule Take 1 capsule by mouth once daily. TRULICITY 0.75 mg/0.5 mL pen injector Inject 0.75 mg subcutaneously one time a week. FEROSUL 325 mg (65 mg iron) tablet Take 1 tablet by mouth once daily. traZODone (DESYREL) 50 mg tablet hydrOXYzine pamoate (VISTARIL) 50 mg capsule Take 2 capsules by mouth twice daily. DULoxetine (CYMBALTA) 60 mg capsule Take 60 mg by mouth once daily. No current facility-administered medications on file prior to visit. Social History Social History Tobacco Use Smoking status: Never Smokeless tobacco: Never Vaping Use Vaping Use: Never used Substance Use Topics Alcohol use: Not Currently Drug use: No EXAM: BP 100/68 (BP Site: Left Arm, BP Position: Sitting, BP Cuff Size: Regular Adult) Pulse 74 Resp 16 Wt 79.5 kg (175 lb 3.2 oz) LMP 05/09/2023 (Exact Date) BMI 31.53 kg/m General Appearance: Well appearing, alert, in no acute distress, well-hydrated, well nourished.. Extremities: right hip: FROM, tender over greater tochanter. Health Maintenance List Influenza Vaccine(1) due on 02/15/2024 Covid-19 Vaccine(1) due on 08/04/2024 Pap Testing due on 06/19/2024 DTaP,Tdap,Td Vaccine(10 - Td or Tdap) due on 11/14/2031 Hepatitis B Vaccine Completed HPV Vaccine Completed Hepatitis C Screening Completed HIV Screening Completed Data reviewed None ASSESSMENT/PLAN: 1. Trochanteric bursitis of right hip - ICD9: 726.5, ICD10: M70.61 Mobic, heat/ice - MELOXICAM 15 MG TABLET Call if not improving in 2-3 weeks Medical Decision Making: Problems: Low: Acute, uncomplicated illness or injury Risk: Moderate: Drug management Medical Decision Making Level: 3 - Low Surjit Aguirre MD documented in this encounter [facility] 10-20-2023 Note HNO ID: [id number] Author: SURJIT AGUIRRE MD Service: ? Author Type: Physician Type: Progress Notes Filed: 10/20/2023 18:32 Note Text: Chief Complaint Patient presents with: Right Hip Pain HPI Kimberly Jeong is a 27 year old female who presents here today for a same day visit. Pt here today with c/o of right hip pain that started 6 days ago. Denies any injury or known cause that she can think of that would start this. Does not feel that her pain is radiating from her back or SI joint. Pain located mostly in the right hip area, but with standing she will experience a sharp pain, jolting pain that almost feels like her leg is going to go out. Rates pain a 9/10. Pain also radiates around to the front of her leg and groin area. Once standing the pain decreases and becomes an aching pain with no radiation. Pt states she will start walking and the pain will reduce being a less of a dull ache and more tolerable. Pain at that time is a 2/10. Reports maybe noticing a warm sensation down the front of her leg/thigh area. Also noticing when trying to lift her leg up she is experiencing some pain. Has tried Ibuprofen, Tylenol and Bio Freeze. Past medical history, appointments, medications, allergies reviewed. Previous Medical History PAST MEDICAL HISTORY Diagnosis Date Anemia complicating , second trimester 07/04/2020 depression anxiety fracture 11 years old right wrist-fell out of bunk bed H/O delivery, currently Myocarditis (HCC) age 18 months [address]. Lay--maribel age 18 yrs PMH - PAST MEDICAL HISTORY OF 06/2007 Right wrist fracture PMH - PAST MEDICAL HISTORY OF normal color vision depression Previous Surgical History PAST SURGICAL HISTORY Procedure Laterality Date DELIVERY ONLY 01/05/2022 [facility] PAST SURGICAL HISTORY OF wisdom teeth Family History FAMILY HISTORY Problem Relation Age of Onset other (Celiac disease) Mother Hypertension Father No Known Problems Sister No Known Problems Sister other (other) Brother No Known Problems Brother No Known Problems Brother No Known Problems Brother Diabetes Maternal Grandmother Breast Cancer Maternal Grandmother No Known Problems Maternal Grandfather Hypertension Paternal Grandmother Colon Cancer Paternal Grandmother Hyperlipidemia Paternal Grandmother Cancer Paternal Grandfather Bladder Cancer No Known Problems Son Patient Allergies ALLERGIES Allergen Reactions Pollen Other: See Comments Nasal congestion and drainage Current Medications Current Outpatient Medications on File Prior to Visit Medication Sig VRAYLAR 3 mg capsule Take 1 capsule by mouth once daily. TRULICITY 0.75 mg/0.5 mL pen injector Inject 0.75 mg subcutaneously one time a week. FEROSUL 325 mg (65 mg iron) tablet Take 1 tablet by mouth once daily. traZODone (DESYREL) 50 mg tablet hydrOXYzine pamoate (VISTARIL) 50 mg capsule Take 2 capsules by mouth twice daily. DULoxetine (CYMBALTA) 60 mg capsule Take 60 mg by mouth once daily. No current facility-administered medications on file prior to visit. Social History Social History Tobacco Use Smoking status: Never Smokeless tobacco: Never Vaping Use Vaping Use: Never used Substance Use Topics Alcohol use: Not Currently Drug use: No EXAM: BP 100/68 (BP Site: Left Arm, BP Position: Sitting, BP Cuff Size: Regular Adult) Pulse 74 Resp 16 Wt 79.5 kg (175 lb 3.2 oz) LMP 05/09/2023 (Exact Date) BMI 31.53 kg/m? General Appearance: Well appearing, alert, in no acute distress, well-hydrated, well nourished.. Extremities: right hip: FROM, tender over greater tochanter. Health Maintenance List Influenza Vaccine(1) due on 02/15/2024 Covid-19 Vaccine(1) due on 08/04/2024 Pap Testing due on 06/19/2024 DTaP,Tdap,Td Vaccine(10 - Td or Tdap) due on 11/14/2031 Hepatitis B Vaccine Completed HPV Vaccine Completed Hepatitis C Screening Completed HIV Screening Completed Data reviewed None ASSESSMENT/PLAN: 1. Trochanteric bursitis of right hip - ICD9: 726.5, ICD10: M70.61 Mobic, heat/ice - MELOXICAM 15 MG TABLET Call if not improving in 2-3 weeks Medical Decision Making: Problems: Low: Acute, uncomplicated illness or injury Risk: Moderate: Drug management Medical Decision Making Level: 3 - Low Surjit D Elderbrock, MD [facility] 09-24-2023 Note HNO ID: [id number] Author: KANAWL SALDAÑA PT Service: ? Author Type: Physical Therapist Type: Progress Notes Filed: 10/20/2023 12:48 Note Text: 10/20/2023 [facility]ER[facility] PHYSICAL THERAPY DISCONTINUANCE OF CARE Plan of Care Period: Start of Care Date: 09/10/23 Last Visit Date: 09/24/2023 Therapy Program: The following is a summary of the interventions provided for this episode of care; Therapeutic exercise, Manual therapy, and Self-halfway management Assessment: Based on most recent visit, patient was progressing slower than expected toward functional goals based on appointment compliance. Unable to formally assess goal achievement, as patient has not returned to therapy or scheduled additional follow-up appointments. Reason for Discontinuation of Care: Patient has not returned to therapy or scheduled additional follow-up appointments. Kanwal Saldaña PT Episode Visit Count: 4 Therapist That Will Accept/Oversee The Plan Of Care: Kanwal Saldaña Start of Care Date: 09/10/23 Onset Date: 04/10/23 Plan of Care Certification Date: 09/10/23 Next Certification Due Date: 10/15/23 Patient Identified by Name and Date of : Yes REHABILITATION AND SPORTS THERAPY PHYSICAL THERAPY TREATMENT NOTE ASSESSMENT: Kimberly Jeong tolerated the session with fatigue and expected muscle soreness. She demonstrated difficulty with inversion with BAPS board. The patient will continue to benefit from ongoing skilled physical therapy to progress toward set goals. PLAN FOR NEXT VISIT: Continue with manual prn and advance ROM as tolerated SUBJECTIVE: Pt reports that her ankle is feeling a little but better than it had been. Pt stated that AP mob felt pretty good, like it was stretching her ankle. Pain: Pain Pain Level: 4 Pain Location: Ankle - Right Post Treatment Pain Post Treatment Pain Level: 4 Post Treatment Pain Location: Ankle - Right Post Treatment Symptoms: soreness OBJECTIVE MEASURES WITH LEVEL OF FUNCTION: TREATMENT: Therapeutic Exercise: 1: seated DF 2x20 2: Ankle alphabet A-Z x 1 3: BAPS L2 PF/DF 2x10 , Inv/Ev x 10 Skilled Intervention: Patient was educated in proper exercise technique and purpose for exercises. Skilled judgment was used in selection of appropriate interventions. Correct performance of therapeutic exercises was facilitated with verbal and visual cuing. Manual Therapy: Soft Tissue Mobilization: IASTM to tibialis anterior, peroneals, and achilles x 8minutes with hawkathrynrips, pt. supine Skilled Intervention: Manual skills to improve joint mobility, ROM, and decrease pain. Utilized anatomy knowledge of the therapist, and assessment of patient's response to intervention. Billing Therapeutic Exercise Treatment Minutes: 15 Manual TherapyTreatment Minutes: 8 Skilled Treatment Time Minutes (timed and untimed codes): 23 Total Session Time (minutes): 23 Session Start Time : 1714 Session Stop Time : 1737 Kimberly Sandoval, COMPLAINT ANALYST Kanwal Saldaña, PT [facility] 09-24-2023 History of Present illness Narrative Episode Visit Count: 4 Therapist That Will Accept/Oversee The Plan Of Care: Kanwal Saldaña Start of Care Date: 09/10/23 Onset Date: 04/10/23 Plan of Care Certification Date: 09/10/23 Next Certification Due Date: 10/15/23 Patient Identified by Name and Date of : Yes REHABILITATION AND SPORTS THERAPY PHYSICAL THERAPY TREATMENT NOTE ASSESSMENT: Kimberly Jeong tolerated the session with fatigue and expected muscle soreness. She demonstrated difficulty with inversion with BAPS board. The patient will continue to benefit from ongoing skilled physical therapy to progress toward set goals. PLAN FOR NEXT VISIT: Continue with manual prn and advance ROM as tolerated SUBJECTIVE: Pt reports that her ankle is feeling a little but better than it had been. Pt stated that AP mob felt pretty good, like it was stretching her ankle. Pain: Pain Pain Level: 4 Pain Location: Ankle - Right Post Treatment Pain Post Treatment Pain Level: 4 Post Treatment Pain Location: Ankle - Right Post Treatment Symptoms: soreness OBJECTIVE MEASURES WITH LEVEL OF FUNCTION: TREATMENT: Therapeutic Exercise: 1: seated DF 2x20 2: Ankle alphabet A-Z x 1 3: BAPS L2 PF/DF 2x10 , Inv/Ev x 10 Skilled Intervention: Patient was educated in proper exercise technique and purpose for exercises. Skilled judgment was used in selection of appropriate interventions. Correct performance of therapeutic exercises was facilitated with verbal and visual cuing. Manual Therapy: Soft Tissue Mobilization: IASTM to tibialis anterior, peroneals, and achilles x 8minutes with hawelena, pt. supine Skilled Intervention: Manual skills to improve joint mobility, ROM, and decrease pain. Utilized anatomy knowledge of the therapist, and assessment of patient's response to intervention. Billing Therapeutic Exercise Treatment Minutes: 15 Manual TherapyTreatment Minutes: 8 Skilled Treatment Time Minutes (timed and untimed codes): 23 Total Session Time (minutes): 23 Session Start Time : 1715 Session Stop Time : 1738 Kimberly JaimeVARUN PT documented in this encounter [facility] 09-17-2023 Note HNO ID: [id number] Author: KANWAL SALDAÑA PT Service: ? Author Type: Physical Therapist Type: Progress Notes Filed: 09/17/2023 17:48 Note Text: Episode Visit Count: 3 Therapist That Will Accept/Oversee The Plan Of Care: Kanwal Saldaña Start of Care Date: 09/10/23 Onset Date: 04/10/23 Plan of Care Certification Date: 09/10/23 Next Certification Due Date: 10/15/23 REHABILITATION AND SPORTS THERAPY PHYSICAL THERAPY TREATMENT NOTE ASSESSMENT: Kimberly Jeong tolerated the session with decreased symptoms. She demonstrated improvements in DF AROM R ankle following STM with hawk developer advisor but reports pain at end range, Pain reduces with AP glide to the talus on the distal tibia with active or passive DF. The patient will continue to benefit from ongoing skilled physical therapy to progress toward set goals. Planned Treatment Interventions: Manual therapy (02059), Therapeutic exercise (21752) PLAN FOR NEXT VISIT: SUBJECTIVE: Pt. reports that her ankle continues to ache. She had increaesd soreness following last visit and tonight toward the end of the day. STM last visit did not hurt during but increased pain after. She continues to have pain with IR isometrics at home, but backs off on the amount of pressure she applies when performing this exercise. Pain: Pain Pain Level: 5 Pain Location: Ankle - Right Post Treatment Pain Post Treatment Pain Level: 3 Post Treatment Pain Location: Ankle - Right OBJECTIVE MEASURES WITH LEVEL OF FUNCTION: LE AROM R Ankle Dorsiflexion: 25 Degrees TREATMENT: Therapeutic Exercise: 1: seated DF 2x20 2: *Access Code: [email or web address] URL: [email or web address] Date: 09/17/2023 Prepared by: Kanwal Saldaña Exercises - Kneeling Ankle Dorsiflexion Self-Mobilization with Towel - 3 x daily - 7 x weekly - 2 sets - 15 reps - 3 hold 3: *dc previous HEP at this time Skilled Intervention: Patient was educated in proper exercise technique and purpose for exercises. Skilled judgment was used in selection of appropriate interventions. Provided written instruction for home exercise program to facilitate proper performance and compliance. Correct performance of therapeutic exercises was facilitated with verbal, visual, and tactile cuing. Educated patient on rationale for performing exercises in regards to decreasing fatigue , increase ease of ADL, and ROM and function . Patient education as noted. Manual Therapy: Joint Mobilizations: Repetitions, Grade, Joint, Patient Position, Body Region Treated Body Region Treated: talocural, AP glide to the talus on the distal tibia with active or passive DF Patient Position: seated EOB Joint: talocural Grade: mobilization with active and passive DF Repetitions: 2x15 with active DF, 1x15 PROM DF Soft Tissue Mobilization: IASTM to tibialis anterior, peroneals, and achilles x 15 minutes with romelia pt. supine Skilled Intervention: Manual skills to improve joint mobility, ROM, and decrease pain. Utilized anatomy knowledge of the therapist, and assessment of patient's response to intervention. Billing Therapeutic Exercise Treatment Minutes: 15 Manual TherapyTreatment Minutes: 15 Skilled Treatment Time Minutes (timed and untimed codes): 30 Total Session Time (minutes): 30 Session Start Time : 1703 Session Stop Time : 1733 Kanwal Saldaña PT [facility] 09-15-2023 Note HNO ID: [id number] Author: KANWAL SALDAÑA PT Service: ? Author Type: Physical Therapist Type: Progress Notes Filed: 09/16/2023 08:08 Note Text: Episode Visit Count: 2 Therapist That Will Accept/Oversee The Plan Of Care: Kanwal Saldaña Start of Care Date: 09/10/23 Onset Date: 04/10/23 Plan of Care Certification Date: 09/10/23 Next Certification Due Date: 10/15/23 Patient Identified by Name and Date of : Yes REHABILITATION AND SPORTS THERAPY PHYSICAL THERAPY TREATMENT NOTE ASSESSMENT: Kimberly Jeong tolerated the session with fatigue and expected muscle soreness. She demonstrated difficulty with inversion and DF motions. The patient will continue to benefit from ongoing skilled physical therapy to progress toward set goals. PLAN FOR NEXT VISIT: assess gait, measure R ankle DF AROM, test SLS balance on foam and firm surface SUBJECTIVE: Pt reports that her R ankle is sore and achy. Pain: Pain Pain Level: 5 Pain Location: Ankle - Right Post Treatment Pain Post Treatment Pain Level: 5 Post Treatment Pain Location: Ankle - Right OBJECTIVE MEASURES WITH LEVEL OF FUNCTION: TREATMENT: Therapeutic Exercise: 1: Seated toe raises x 20 2: Ankle DF isometrc 1x5 holding for 10 seconds 3: Ankle PF isometric 1x5 holding for 10 seconds 4: Ankle inversion isometric 1x5 with 10 second hold 5: Ankle eversion isometric 1x5 with 10 second hold 6: Ankle circles x20 CW and CCW 7: Ankle PF/DF x 20 each direction Skilled Intervention: Patient was educated in proper exercise technique and purpose for exercises. Skilled judgment was used in selection of appropriate interventions. Correct performance of therapeutic exercises was facilitated with verbal and visual cuing. Manual Therapy: 1: IASTM to tibialis anterior x 8 minutes Skilled Intervention: Manual skills to improve joint mobility, ROM, and decrease pain. Utilized anatomy knowledge of the therapist, and assessment of patient's response to intervention. Billing Therapeutic Exercise Treatment Minutes: 22 Self-Care/Home Management Treatment Minutes: 8 Skilled Treatment Time Minutes (timed and untimed codes): 30 Total Session Time (minutes): 30 Session Start Time : 1710 Session Stop Time : 1740 VARUN Gallegos PT [facility] 09-10-2023 Note HNO ID: [id number] Author: KANWAL SALDAÑA PT Service: ? Author Type: Physical Therapist Type: Progress Notes Filed: 09/10/2023 08:56 Note Text: Episode Visit Count: 1 Therapist That Will Accept/Oversee The Plan Of Care: Kanwal Saldaña Start of Care Date: 09/10/23 Onset Date: 04/10/23 Plan of Care Certification Date: 09/10/23 Next Certification Due Date: 10/15/23 Patient Identified by Name and Date of : Yes REHABILITATION AND SPORTS THERAPY PHYSICAL THERAPY EVALUATION PLAN OF CARE: Assessment: Kimberly Jeong presents with diagnosis of sprain injury of right ankle, unspecified ligament, subsequent encounter that interferes with kneeling, walking in the community, walking, standing, weight bearing, stair negotiation, running, jumping, squatting . She presents with impairments in ADL's, balance, flexibility, gait, independence in exercise, joint mobility, overall function, patient reported outcome measures, range of motion, strength, symptom management, and tissue tenderness. PROMIS? (Patient-Reported Outcomes Measurement Information System) scores were reviewed and physical function domain and self efficacy domain identified as a rehabilitation concern. Prognosis for therapy is Good due to: current objective clinical presentation, good overall health status, acuteness of condition, positive past response to therapy, within-session changes, good support system/ coping skills . She will benefit from skilled therapy services to meet the goals established for this plan of care as noted below. Goals for Episode of Care: created on 09/10/23 through 10/22/23 [place] in home exercise program. Patient will decrease pain to 1-2/10 with functional activities to allow patient to improve ambulation, transfers, and standing tolerance for ADLs. Patient will increase active ROM of right ankle DF to 20 degrees or greater without increased symptoms to allow pt to to improve performance of ADLs. Patient will demonstrate increase in right ankle df, pf, inv, and eversion strength to 5/5 during manual muscle testing in order to improve function for prior functional tasks. Normal gait. Reciprocal stair negotiation. Patient will ascend and descend 4x 6 steps without a rail. with no device independently and safe technique demonstrating step over step pattern. Patient will increase balance to 30 seconds for single limb stance on RLE and 30 seconds for single limb stance on LLE. Patient will demonstrate improved neuromuscular coordination as evidenced by improve function for prior functional tasks. Patient Goals: reduce pain with weight bearing activites including stairs, prolonged standing/walking, and kneeling Planned Interventions, Frequency, and Duration: Current Frequency: 2x/week Duration: 6 weeks Total Number of Visits Planned: 12 Planned Treatment Interventions: Therapeutic exercise (66746), Neuromuscular re-education (23982), Manual therapy (96997), Therapeutic activities (95919), Self-halfway management (02005), Gait Training (45004) PLAN FOR NEXT VISIT: assess gait, measure R ankle DF AROM, test SLS balance on foam and firm surface Patient demonstrates good understanding of plan of care and treatment. The above goals and plan of care were discussed and agreed upon by patient/family. SUBJECTIVE: for R ankle pain after rolling her R ankle in March 2023. Pt. has been wearing a regular shoe since Apr 2023. Pt. has the most pain in the anteromedial distal R tibia and tenderness to the navicle of the right ankle. Pt. x-ray was positive for fx back in March. 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 Intake Information: Prescription present Previous Treatment: NSAIDs (ibuprofen and tylenol, tylenol more helpful) Falls Interview: No positive findings with falls interview Pain: Pain Pain Location: Ankle - Right Post Treatment Pain Post Treatment Pain Level: 4 Post Treatment Pain Location: Ankle - Right Post Treatment Pain Description: Aching Post Treatment Symptoms: fatigued PROMIS Scales Higher is Better 09/10/2023 Phys Func - Score 46 (within normal limits) Phys Func - Percentile 34% Self-Eff Symptom - Score 45 (Average) Self-Eff Symptom - Percentile 31% T-scores: mean of general population = 50. 5 points is clinically meaningfully difference Percentiles provide an indication of how the patient's score ranks in relation to the general population. Higher percentile rankings indicate (more content not included)... [facility] 09-08-2023 Note HNO ID: [id number] Author: PAYTON BLOOM LPN Service: ? Author Type: LICENSED NURSE Type: Progress Notes Filed: 09/08/2023 08:24 Note Text: Per Dr. Ibarra Kimberly was provided with powerstep original inserts, size 6, and instructed/educated in its application, wear, and care. All questions were answered, and patient was able to demonstrate competence with the necessary skills to utilize the above equipment. Payton Bloom LPN [facility] 09-08-2023 Note HNO ID: [id number] Author: TESTCYNDIE MAYEW, ? Service: ? Author Type: Physician Type: Progress Notes Filed: 09/08/2023 08:21 Note Text: Consultation requested by Dr. Aguirre for an opinion regarding right ankle pain. My final recommendations will be communicated back to the requesting physician by way of shared Medical record or letter to requesting physician via US mail. Initial Podiatric Office Visit: Chief Complaint: This 27 year old female who presents with chief complaint:right ankle pain HPI Patient presents to clinic for evaluation of right ankle She rolled her right ankle back in March. She rolled her foot inward. She had xrays in March that was suggestive of ankle fracture. Patient was placed in an aircast for 1.5 weeks. She stopped using after 1.5 weeks because she did not feel any better using. She has been in a shoe since April. She has pain at the end of a day. Patient does take ibuprofen and/or tylenol which does help to some degree. Patient states that most of her pain is when she moves her foot up and down. PAIN EVALUATION 09/08/2023 0807 Pain Level: 4 Pain Location: Ankle-Right Description: Sharp;Dull;Aching Duration Amount of Time: 5 Duration Units: Months Frequency: Intermittent Intervention/Comfort measure: Reposition;Relaxation;Medication Hemoglobin A1C (%) Date Value 07/21/2023 5.6 PCP: Surjit Aguirre MD PAST MEDICAL HISTORY Diagnosis Date Anemia complicating , second trimester 07/04/2020 depression anxiety fracture 11 years old right wrist-fell out of bunk bed H/O delivery, currently Myocarditis (HCC) age 18 months [address] Lay--recheck age 18 yrs PMH - PAST MEDICAL HISTORY OF 06/2007 Right wrist fracture PMH - PAST MEDICAL HISTORY OF normal color vision depression Current Outpatient Medications Medication Sig VRAYLAR 3 mg capsule Take 1 capsule by mouth once daily. TRULICITY 0.75 mg/0.5 mL pen injector Inject 0.75 mg subcutaneously one time a week. FEROSUL 325 mg (65 mg iron) tablet Take 1 tablet by mouth once daily. traZODone (DESYREL) 50 mg tablet hydrOXYzine pamoate (VISTARIL) 50 mg capsule Take 2 capsules by mouth twice daily. DULoxetine (CYMBALTA) 60 mg capsule Take 60 mg by mouth once daily. No current facility-administered medications for this visit. ALLERGIES Allergen Reactions Pollen Other: See Comments Nasal congestion and drainage PAST SURGICAL HISTORY Procedure Laterality Date DELIVERY ONLY 01/05/2022 [facility] PAST SURGICAL HISTORY OF wisdom teeth FAMILY HISTORY Problem Relation Age of Onset other (Celiac disease) Mother Hypertension Father No Known Problems Sister No Known Problems Sister other (other) Brother No Known Problems Brother No Known Problems Brother No Known Problems Brother Diabetes Maternal Grandmother Breast Cancer Maternal Grandmother No Known Problems Maternal Grandfather Hypertension Paternal Grandmother Colon Cancer Paternal Grandmother Hyperlipidemia Paternal Grandmother Cancer Paternal Grandfather Bladder Cancer No Known Problems Son Social History Tobacco Use Smoking status: Never Smokeless tobacco: Never Vaping Use Vaping Use: Never used Substance Use Topics Alcohol use: Not Currently Drug use: No REVIEW OF SYSTEMS GENERAL: Negative for Malaise, significant weight loss, fever RESPIRATORY: Negative for cough, wheezing and shortness of breath CARDIOVASCULAR: Negative for chest pain, leg swelling and palpitations GI: Negative for abdominal discomfort, blood in stools or black stools and change in bowel habits : Negative for dysuria, frequency and incontinence MUSCULOSKELETAL: Negative for joint pain or swelling, back pain, and muscle pain. SKIN: Negative for lesions, rash, and itching. HEMATOLOGY/LYMPHOLOGY Negative for prolonged bleeding, bruising easily, and swollen nodes. ENDOCRINE: Negative for cold or heat intolerance, polyuria, polydipsia and goiter. NEURO: negative Physical Exam: Constitutional: Pt is a well developed 27 year old female who is alert, oriented and cooperative Eyes: Following during examination. No redness or drainage. Respiratory: RR normal and nonlabored. Even breathing. No evidence of distress or shortness of breath. Psychology: Patient is engaged during conversation. Normal affect and mood. Does not appear depressed or anxious during encounter. Vascular: Dorsalis pedis and posterior tibial pulses palpable as b/l Capillary Fill time < 5 seconds to digits 1-5 b/l Skin temperature warm to warm proximal to distal b/l Hair growth present to digits Neurological: intact light touch/epicritic sensation b/l intact protective sensation no significant neurological deficits Dermatological: Nails 1-5 b/l appear normal. Webspaces clean and dry 1-4 b/l. Skin appears well hydrated and supple. go (more content not included)... [facility] 09-08-2023 Note HNO ID: [id number] Author: PAYTON BLOOM LPN Service: ? Author Type: LICENSED NURSE Type: Progress Notes Filed: 09/08/2023 08:21 Note Text: AMB ROOMING INTAKE FLOWSHEET DATA Risk Screening Do you have concerns about personal safety or safety in the home?: No Pain Pain Level: 4 Pain Location: Ankle-Right Description: Sharp, Dull, Aching Duration Amount of Time: 5 Duration Units: Months Frequency: Intermittent Intervention/Comfort measure: Reposition, Relaxation, Medication Patient presents with: Right Ankle - New, Pain, Swelling, Fracture Payton Bloom LPN [facility] 08-04-2023 Note HNO ID: [id number] Author: Surjit Aguirre MD Service: ? Author Type: Physician Type: Progress Notes Filed: 08/04/2023 5:44 PM Note Text: Chief Complaint Patient presents with: Wellness HPI Kimberly Jeong is a 27 year old female who presents here today for a Physical Pt here today for a Physical, stating that she needed this for work. Denies having any forms that need completed. Working in [employer]. Pt has not been seen since September 2022, but has been started on multiple medications from an outside Provider. Has two boys ages 3 and 1, very busy. GI/Uro - Denies any stomach, bowel or urinary issues. 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 Cardio - Denies any chest pain, sob or dizziness. Diet/Exercise/Weight - Trying to watch diet, notes has picky eaters at home which makes meal planning difficult. Trying to cut out pop and coffee, drink more water. Exercises 3 days per week, notes if she does more her ankle will start bothering her. Has put on weight due to Cymbalta medication. Was recently started on Trulicity by Psych to help with weight loss. Depression - Pt currently taking Cymbalta 60 mg once daily, Hydroxyzine 50 mg, Vraylar 3 mg once daily and Trazodone 50 mg once daily. Following with [facility]. Has been following her for the past year, notes she did stop seeing her temporarily, but resumed seeing her again in March. Following up once a month. Anemia - Recently prescribed Ferosul 65 mg once daily. Notes she's slowly weaning herself on this dosage due to causing GI upset. Had x-ray done of foot/ankle before visit. Notes that she fx right ankle at the end of March last year. States her foot slipped off the edge of the driveway when she was getting her kids out of the car, causing her to fall. Had pain at onset, with swelling. She was placed in an air cast, wore this for about two weeks. Since that time she has limited ROM with moving her foot, crossing her feet behind her or pointing her toes cause pain. At times the pain will radiate to her lower leg. HM - Declines Flu and Covid vaccines. Past medical history, appointments, medications, allergies reviewed. Previous Medical History PAST MEDICAL HISTORY Diagnosis Date Anemia complicating , second trimester 07/04/2020 depression anxiety fracture 11 years old right wrist-fell out of bunk bed H/O delivery, currently Myocarditis (HCC) age 18 months [address] Lay--recheck age 18 yrs PMH - PAST MEDICAL HISTORY OF 06/2007 Right wrist fracture PMH - PAST MEDICAL HISTORY OF normal color vision depression Previous Surgical History PAST SURGICAL HISTORY Procedure Laterality Date DELIVERY ONLY 01/05/2022 [facility] PAST SURGICAL HISTORY OF wisdom teeth Family History FAMILY HISTORY Problem Relation Age of Onset other (Celiac disease) Mother Hypertension Father No Known Problems Sister No Known Problems Sister other (other) Brother No Known Problems Brother No Known Problems Brother No Known Problems Brother Diabetes Maternal Grandmother Breast Cancer Maternal Grandmother No Known Problems Maternal Grandfather Hypertension Paternal Grandmother Colon Cancer Paternal Grandmother Hyperlipidemia Paternal Grandmother Cancer Paternal Grandfather Bladder Cancer No Known Problems Son Patient Allergies ALLERGIES Allergen Reactions Pollen Other: See Comments Nasal congestion and drainage Current Medications Current Outpatient Medications on File Prior to Visit Medication Sig VRAYLAR 3 mg capsule traZODone (DESYREL) 50 mg tablet meloxicam (MOBIC) 15 mg tablet Take 1 tablet by mouth once daily. With food. (Patient not taking: Reported on 05/21/2023) hydrOXYzine pamoate (VISTARIL) 50 mg capsule Take 2 capsules by mouth twice daily. DULoxetine (CYMBALTA) 60 mg capsule Take 60 mg by mouth once daily. No current facility-administered medications on file prior to visit. Social History Social History Tobacco Use Smoking status: Never Smokeless tobacco: Never Vaping Use Vaping Use: Never used Substance Use Topics Alcohol use: Not Currently Drug use: No EXAM: BP 110/72 (BP Site: Left Arm, BP Position: Sitting, BP Cuff Size: Regular Adult) Pulse 68 Resp 16 Ht 158.8 cm (5' 2.5 ) Wt 83.6 kg (184 lb 3.2 oz) LMP 05/09/2023 (Exact Date) BMI 33.15 kg/m? General Appearance: Well appearing, alert, in no acute distress, well-hydrated, well nourished. and Obese. Neck: Supple, no adenopathy; thyroid symmetric, normal size, no bruits. Lungs: Lungs clear to auscultation. No wheezing, rhonchi, rales.. Heart: RRR without murmur, gallop, or rubs. No ectopy. Extremities: Right foot/ankle. Tenderness with ROM on exam. Edema noted on exam. Possible ligament issue. Health Maintenance List Covid-19 Vaccine(1) Never done Influenza Vaccine(1) due on 04/18/2023 Pap (more content not included)... [facility] 08-04-2023 History of Present illness Narrative Radiology Service Progress Note PATIENT NAME: Kimberly Jeong DATE OF SERVICE: August 04, 2023 TIME: 4:59 PM PATIENT IDENTITY VERIFICATION COMPLETED USING TWO (2) IDENTIFIERS: Name and Date of confirmed by patient verbally. FALL SCREENING: Has the patient had 2 falls in the last year or 1 fall with injury or currently using an Ambulatory Assistive Device (Walker, Cane, Wheelchair, Crutches, etc.)? No PATIENT GENDER DATA: Female. status: : No status: NO. PATIENT RELEVANT IMPLANT DATA REVIEWED: Yes RADIOLOGY DEPARTMENT: General X-ray: Exam(s) Completed: Lower Extremity X-Ray(s): Ankle, Right and Wt. Bearing PERIPHERAL IV DATA: Not applicable SIGNED BY: RT Geovani(R) August 04, 2023 4:59 PM documented in this encounter [facility] 08-04-2023 Note HNO ID: [id number] Author: Dior Waldrop RT(R) Service: Radiology Author Type: Technologist Type: Progress Notes Filed: 08/04/2023 5:10 PM Note Text: Radiology Service Progress Note PATIENT NAME: Kimberly Jeong DATE OF SERVICE: August 04, 2023 TIME: 4:59 PM PATIENT IDENTITY VERIFICATION COMPLETED USING TWO (2) IDENTIFIERS: Name and Date of confirmed by patient verbally. FALL SCREENING: Has the patient had 2 falls in the last year or 1 fall with injury or currently using an Ambulatory Assistive Device (Walker, Cane, Wheelchair, Crutches, etc.)? No PATIENT GENDER DATA: Female. status: : No status: NO. PATIENT RELEVANT IMPLANT DATA REVIEWED: Yes RADIOLOGY DEPARTMENT: General X-ray: Exam(s) Completed: Lower Extremity X-Ray(s): Ankle, Right and Wt. Bearing PERIPHERAL IV DATA: Not applicable SIGNED BY: RT Geovani(R) August 04, 2023 4:59 PM [facility] 06-26-2023 Note HNO ID: [id number] Author: Keyana Thakkar APRN.[employer] Service: ? Author Type: Nurse Practitioner Type: Progress Notes Filed: 06/26/2023 6:44 PM Note Text: Subjective The history is provided by the patient. No educational speech language clinician was used. HPI Kimberly Jeong is a 27 year old female who presents today for CC of right ear pain and congestion, cough for 3 days. She has used sudafed one time and ibuprofen. She denies any exposure to covid, declines testing. BP 100/66 Pulse 95 Temp 37.1 ?C (98.7 ?F) Resp 19 Wt 81.8 kg (180 lb 6.4 oz) LMP 05/09/2023 (Exact Date) SpO2 98% BMI 32.47 kg/m? Social History Tobacco Use Smoking status: Never Smokeless tobacco: Never Vaping Use Vaping Use: Never used Substance Use Topics Alcohol use: Not Currently Drug use: No PAST MEDICAL HISTORY Diagnosis Date Anemia complicating , second trimester 07/04/2020 depression anxiety fracture 11 years old right wrist-fell out of bunk bed H/O delivery, currently Myocarditis (HCC) age 18 months [address] cleared for [address]. Lay--recheck age 18 yrs PMH - PAST MEDICAL HISTORY OF 06/2007 Right wrist fracture PMH - PAST MEDICAL HISTORY OF normal color vision depression I have confirmed and edited as necessary, the [facility] Review of Systems Constitutional: Positive for malaise/fatigue. Negative for chills and fever. HENT: Positive for congestion and ear pain. Negative for sinus pain and sore throat. Respiratory: Positive for cough. Negative for sputum production, shortness of breath and wheezing. Cardiovascular: Negative for chest pain. Musculoskeletal: Positive for myalgias. Neurological: Positive for headaches. Objective Physical Exam Vitals and nursing note reviewed. HENT: Head: Normocephalic and atraumatic. Right Ear: Ear canal and external ear normal. A middle ear effusion (yellow) is present. Tympanic membrane is erythematous and bulging. Left Ear: Tympanic membrane, ear canal and external ear normal. Nose: Mucosal edema, congestion and rhinorrhea present. Right Sinus: Maxillary sinus tenderness present. No frontal sinus tenderness. Left Sinus: Maxillary sinus tenderness present. No frontal sinus tenderness. Mouth/Throat: Pharynx: Uvula midline. No oropharyngeal exudate or posterior oropharyngeal erythema. Cardiovascular: Rate and Rhythm: Normal rate and regular rhythm. Heart sounds: Normal heart sounds. Pulmonary: Effort: Pulmonary effort is normal. Breath sounds: Normal breath sounds. Lymphadenopathy: Head: Right side of head: No submental, submandibular or tonsillar adenopathy. Left side of head: No submental, submandibular or tonsillar adenopathy. Cervical: No cervical adenopathy. Skin: General: Skin is warm and dry. Neurological: Mental Status: She is alert and oriented to person, place, and time. Psychiatric: Mood and Affect: Affect normal. ASSESSMENT/PLAN: 1. URI with cough and congestion - ICD9: 465.9, ICD10: J06.9 (primary diagnosis) - Discussed viral etiology and rationale for treatment. - Symptomatic treatment with prn analgesia - Supportive care with fluids and rest 2. Acute otitis media, right - ICD9: 382.9, ICD10: H66.91 - Will begin treatment with Amoxicillin for 7 days - Supportive care with plenty of fluids, rest, and analgesia prn. - Follow up in one week if symptoms persist or worsen. - Advised may be viral - AMOXICILLIN 875 MG TABLET 3. Feared condition not demonstrated - ICD9: V65.5, ICD10: Z71.1 Fluconazole as ordered - FLUCONAZOLE 150 MG TABLET Diagnosis and treatment plan were discussed and questions were answered to the patient's satisfaction. Pt acknowledged understanding of concepts and follow up plan. Specific signs and symptoms that would indicate the need for higher level of care were discussed in detail warranting prompt ER evaluation. Keyana Thakkar APRN.[facility] 06-26-2023 History of Present illness Narrative Subjective The history is provided by the patient. No educational speech language clinician was used. HPI Kimberly Jeong is a 27 year old female who presents today for CC of right ear pain and congestion, cough for 3 days. She has used sudafed one time and ibuprofen. She denies any exposure to covid, declines testing. BP 100/66 Pulse 95 Temp 37.1 C (98.7 F) Resp 19 Wt 81.8 kg (180 lb 6.4 oz) LMP 05/09/2023 (Exact Date) SpO2 98% BMI 32.47 kg/m Social History Tobacco Use Smoking status: Never Smokeless tobacco: Never Vaping Use Vaping Use: Never used Substance Use Topics Alcohol use: Not Currently Drug use: No PAST MEDICAL HISTORY Diagnosis Date Anemia complicating , second trimester 07/04/2020 depression anxiety fracture 11 years old right wrist-fell out of bunk bed H/O delivery, currently Myocarditis (HCC) age 18 months 2006 cleared for [address] Dr. Lay--recheck age 18 yrs PMH - PAST MEDICAL HISTORY OF 06/2007 Right wrist fracture PMH - PAST MEDICAL HISTORY OF normal color vision depression I have confirmed and edited as necessary, the [facility] Review of Systems Constitutional: Positive for malaise/fatigue. Negative for chills and fever. HENT: Positive for congestion and ear pain. Negative for sinus pain and sore throat. Respiratory: Positive for cough. Negative for sputum production, shortness of breath and wheezing. Cardiovascular: Negative for chest pain. Musculoskeletal: Positive for myalgias. Neurological: Positive for headaches. Objective Physical Exam Vitals and nursing note reviewed. HENT: Head: Normocephalic and atraumatic. Right Ear: Ear canal and external ear normal. A middle ear effusion (yellow) is present. Tympanic membrane is erythematous and bulging. Left Ear: Tympanic membrane, ear canal and external ear normal. Nose: Mucosal edema, congestion and rhinorrhea present. Right Sinus: Maxillary sinus tenderness present. No frontal sinus tenderness. Left Sinus: Maxillary sinus tenderness present. No frontal sinus tenderness. Mouth/Throat: Pharynx: Uvula midline. No oropharyngeal exudate or posterior oropharyngeal erythema. Cardiovascular: Rate and Rhythm: Normal rate and regular rhythm. Heart sounds: Normal heart sounds. Pulmonary: Effort: Pulmonary effort is normal. Breath sounds: Normal breath sounds. Lymphadenopathy: Head: Right side of head: No submental, submandibular or tonsillar adenopathy. Left side of head: No submental, submandibular or tonsillar adenopathy. Cervical: No cervical adenopathy. Skin: General: Skin is warm and dry. Neurological: Mental Status: She is alert and oriented to person, place, and time. Psychiatric: Mood and Affect: Affect normal. ASSESSMENT/PLAN: 1. URI with cough and congestion - ICD9: 465.9, ICD10: J06.9 (primary diagnosis) - Discussed viral etiology and rationale for treatment. - Symptomatic treatment with prn analgesia - Supportive care with fluids and rest 2. Acute otitis media, right - ICD9: 382.9, ICD10: H66.91 - Will begin treatment with Amoxicillin for 7 days - Supportive care with plenty of fluids, rest, and analgesia prn. - Follow up in one week if symptoms persist or worsen. - Advised may be viral - AMOXICILLIN 875 MG TABLET 3. Feared condition not demonstrated - ICD9: V65.5, ICD10: Z71.1 Fluconazole as ordered - FLUCONAZOLE 150 MG TABLET Diagnosis and treatment plan were discussed and questions were answered to the patient's satisfaction. Pt acknowledged understanding of concepts and follow up plan. Specific signs and symptoms that would indicate the need for higher level of care were discussed in detail warranting prompt ER evaluation. Keyana Thakkar APRN.[employer] documented in this encounter [facility] 06-03-2023 Instructions Lauryn Anderson APRN.[facility] - 06/03/2023 7:34 AM EDT - Eat primarily whole foods. Limit carbs, especially processed carbs. - Do not drink your calories - 30 grams of protein for your first meal of the day decreases your hunger during the day by up to 40 % Premier Protein or generic 30 gm protein 1 gm sugar - Walk for 15 minutes immediately a meal. documented in this encounter [facility] 06-03-2023 History of Present illness Narrative Rigging Up Man offered: Patient declines. Kimberly is a 27 year old who presents for an annual gynecologic exam with complaints, bladder pressure, urgency and frequency Symptoms for past week. Noticed symptoms after treatment for BV and yeast. 05/21 BV, yeast infection. STD resutls negative. Menses: cycles every 28-30 days and 4-7 days of flow. Contraception: condoms, accepting if occurs HPV vaccine: Yes Last Pap: 06/28/2021 normal HPV: N/A History of abnormal pap: No Last mammogram: never Sexually active: Yes History of STDS: None Patient concerns for STD exposure: No. Time with current partner: 5 years Pain with intercourse: No Postcoital bleeding: No OB History T0 L2 SAB0 IAB0 Ectopic0 Multiple0 Live Births2 [employer] Work[employer] History LMP: 04/16/2023 (Exact Date), Having periods Age at Menarche: Age at First : Age at Menopause: [employer] Work[employer] History Comments: Sexual Activity: Yes; Male Contraception: No contraception data on record PAST MEDICAL HISTORY Diagnosis Date Anemia complicating , second trimester 07/04/2020 depression anxiety fracture 11 years old right wrist-fell out of bunk bed H/O delivery, currently Myocarditis (HCC) age 18 months 2006 cleared for [address]. Lay--recheck age 18 yrs PMH - PAST MEDICAL HISTORY OF 06/2007 Right wrist fracture PMH - PAST MEDICAL HISTORY OF normal color vision depression PAST SURGICAL HISTORY Procedure Laterality Date DELIVERY ONLY 01/05/2022 [facility] PAST SURGICAL HISTORY OF wisdom teeth FAMILY HISTORY Problem Relation Age of Onset other (Celiac disease) Mother Hypertension Father No Known Problems Sister No Known Problems Sister other (other) Brother No Known Problems Brother No Known Problems Brother No Known Problems Brother Diabetes Maternal Grandmother Breast Cancer Maternal Grandmother No Known Problems Maternal Grandfather Hypertension Paternal Grandmother Colon Cancer Paternal Grandmother Hyperlipidemia Paternal Grandmother Cancer Paternal Grandfather Bladder Cancer No Known Problems Son SOCIAL HISTORY Social History Tobacco Use Smoking status: Never Smokeless tobacco: Never Vaping Use Vaping Use: Never used Substance Use Topics Alcohol use: Not Currently Drug use: No REVIEW OF SYSTEMS Abdomen: No abdominal pain, nausea, vomiting, diarrhea, or constipation. No bloating, early satiety, indigestion, or increased flatulence. Bladder: see HPI. Breast: No breast lumps, nipple d/c, overlying skin changes, redness or skin retraction. Allergies and current medication updated:Yes EXAM: BP 110/64 Ht 5' 2.5 (1.59m) Wt 176 lb (79.8kg) LMP 05/09/2023 BMI 31.66 kg/(m^2). GENERAL: pleasant, female in no apparent distress HEENT: Normocephalic, atraumatic, mucus membranes moist, and no lesions NECK: Supple, full range of motion, no adenopathy, and thyroid normal DERMATOLOGY: Normal, without lesions, non-icteric, and non-hirsute BREAST: soft, non-tender, symmetric, no dominant mass, normal nipple-areolar complex, no lymphadenopathy, and no nipple discharge CHEST: Normal inspiratory effort ABDOMEN: soft, non-tender, and no masses PELVIC: external genitalia normal, normal Bartholin's glands, urethra, Dunthorpe's glands, no vulvar lesions, no cervical lesions, good vaginal support, small amount off-white discharge present, normal appearing perineal body and perianal region BIMANUAL: uterus normal size, shape and consistency, no adnexal masses, and non-tender RECTOVAGINAL: deferred. NEURO: alert and oriented x3,exam grossly non-focal EXTREMITIES: normal ASSESSMENT/PLAN: 1) Health maintenance: Pap/HPV up to date. Nutrition, exercise and routine health maintenance exams reviewed. HPV vaccine: completed series 2. Sensation of pressure in bladder area - ICD9: 596.89, ICD10: R39.89 - Yeast infection treated with 2 doses fluconazole. - UA DIP, URINE (POC) - negative 3. Class 1 obesity with body mass index (BMI) of 31.0 to 31.9 in adult, unspecified obesity type, unspecified whether serious comorbidity present - ICD9: 278.00, V85.31, ICD10: E66.9, Z68.31 - Eat primarily whole foods. Limit carbs, especially processed carbs. - Do not drink your calories - 30 grams of protein for your first meal of the day decreases your hunger during the day by up to 40 % Premier Protein or generic 30 gm protein 1 gm sugar - Walk for 15 minutes immediately a meal. 4) Contraception: condoms. Contraceptive options reviewed and information provided. Add VCF contraceptive strips. Encouraged to restart PNVFA. 5) STD screening: Declined STD check, negative earlier this month 6) Follow up one year or sooner as needed Lauryn Anderson APRN.SAMPLE MOUNTER documented in this encounter [facility] 04-17-2023 History of Present illness Narrative Subjective HPI HPI Kimberly Jeong is a 27 year old female who presents today for CC of right ankle and foot pain. This started last night after she stepped off a curb and felt a pop in the lateral side of the right foot. Has tried tylenol, motrin and ice with some improvement. Symptoms were worse this morning. C/O numbness to mid portion of the cooper and unable to move the 3-5 toes. .Patient presents with: Right Ankle Pain: X 1 day PAST MEDICAL HISTORY Diagnosis Date Anemia complicating , second trimester 07/04/2020 depression anxiety fracture 11 years old right wrist-fell out of bunk bed H/O delivery, currently Myocarditis (HCC) age 18 months [address] cleared [address] Lay--recheck age 18 yrs PMH - PAST MEDICAL HISTORY OF 06/2007 Right wrist fracture PMH - PAST MEDICAL HISTORY OF normal color vision depression PAST SURGICAL HISTORY Procedure Laterality Date DELIVERY ONLY 01/05/2022 [facility] PAST SURGICAL HISTORY OF wisdom teeth ALLERGIES Pollen MEDICATIONS meloxicam (MOBIC) 15 mg tablet Take 1 tablet by mouth once daily. With food. hydrOXYzine pamoate (VISTARIL) 50 mg capsule Take 2 capsules by mouth twice daily. ARIPiprazole (ABILIFY) 2 mg tablet Take 2 mg by mouth once daily. DULoxetine (CYMBALTA) 60 mg capsule Take 60 mg by mouth once daily. medroxyPROGESTERone (DEPO-PROVERA) 150 mg/mL Inject 1 mL intramuscularly every 12 weeks. ferrous sulfate (IRON ORAL) Take by mouth. FLUoxetine HCl (PROZAC) 40 mg capsule Take 1 capsule by mouth once daily. multivitamin (CLASSIC ) 28 mg iron- 800 mcg tab(s) Take 1 tablet by mouth once daily. FAMILY HISTORY Problem Relation Age of Onset other (Celiac disease) Mother Hypertension Father No Known Problems Sister No Known Problems Sister other (other) Brother No Known Problems Brother No Known Problems Brother No Known Problems Brother Diabetes Maternal Grandmother Breast Cancer Maternal Grandmother No Known Problems Maternal Grandfather Hypertension Paternal Grandmother Colon Cancer Paternal Grandmother Hyperlipidemia Paternal Grandmother Cancer Paternal Grandfather Bladder Cancer No Known Problems Son Social History Tobacco Use Smoking status: Never Smokeless tobacco: Never Vaping Use Vaping Use: Never used Substance Use Topics Alcohol use: Not Currently Drug use: No Review of Systems Musculoskeletal: Positive for joint pain. Objective Blood pressure 112/68, pulse 78, temperature 37.1 C (98.8 F), resp. rate 18, weight 81 kg (178 lb 9.6 oz), last menstrual period 04/16/2023, SpO2 99 %, not currently . Physical Exam Vitals reviewed. Constitutional: Appearance: Normal appearance. HENT: Head: Normocephalic. Cardiovascular: Pulses: Dorsalis pedis pulses are 2+ on the right side. Posterior tibial pulses are 2+ on the right side. Musculoskeletal: General: Swelling, tenderness and signs of injury present. Right ankle: Swelling present. Tenderness present over the lateral malleolus. Normal pulse. Right Achilles Tendon: Normal. No tenderness. Waldrop's test negative. Left ankle: Normal. Right foot: Decreased range of motion. Normal capillary refill. Tenderness present. Normal pulse. Comments: Right foot/ ankle Neurological: Mental Status: She is alert. ASSESSMENT/PLAN: 1. Injury of right lower extremity, initial encounter - ICD9: 959.7, ICD10: S89.91XA Splint applied Otc medication discussed Ice/rest/elevation discussed Refer to ortho. - XR FOOT GENERAL 3V AP/LAT/OBL RIGHT IMPRESSION IMPRESSION: Findings suggestive of a nondisplaced fracture involving the inferior tip of the medial malleolus. Dictated by : SERENITY ZHANG MD - XR ANKLE GENERAL 3V AP/LAT/OBL RIGHT Duane Higuera APRN.SAMPLE MOUNTER documented in this encounter [facility] 11-11-2022 Miscellaneous Notes Patient will be follow up with Dr. Carla sellers. [place] Ma Sent eCommHub message to pt as well and notified her that PCP has appt at 7:20 pm. Spot held, wait pt response. [place] Pt scheduled [facility] appt with Rishabh Duran CNP to discuss iron levels- pt is to schedule an appt with Dr. Aguirre or Adalberto to discuss this. TC to pt, left message for pt to return call to office.. Please assist pt with scheduling appt with Dr. Aguirre or Adalberto to discuss. documented in this encounter [facility] 10-01-2022 Miscellaneous Notes Pt requesting referral be faxed to [facility]. This has bee completed and faxed to [phone]. Pt notified via [employer]umb[employer]. [place] Ma Pt notified that referral has been placed. Asked if pt wanted to stay within [facility] or stay local with [facility]. If pt decides locally, we will need to fax referral paperwork to [facility] and update pt. Pt made aware she will have to contact outside [facility] to schedule. Wait pt response. [place] Ma OK for ENT referral Surjit Aguirre MD documented in this encounter [facility] 09-02-2022 Miscellaneous Notes Pt agreeable to 3:40 appt. Rescheduled. [place] Ma Due to pt missing appt, offered her 3:40 pm or 7:40 pm VV for medication f/u. [place] Ma documented in this encounter [facility] 09-02-2022 History of Present illness Narrative Chief Complaint Patient presents with: Medication Follow-up HPI Kimberly Jeong is a 26 year old female who presents here today for medication follow up. She is working at [employer] and has 2 little boys ages 2 and 8 months. Depression/KAMILA: Is taking Cymbalta 60 mg daily, Abilify 2 mg daily and Vistaril 50 mg 2 pills BID prn. She feels this regimen is working well for her along with counseling through [place] [id number] whom prescribes her medications. She was seen in for cold and ear pain, checked for strep then which was negative and treated with Amoxicillin 08/19/22. She came in a week later due to her sore throat not improving and saw Dr. Rosales on 08/28/22 for pharyngitis and ear infection. Was tested for mono which was negative. She states that she has pain with swallowing, does not feel like it has gotten any better. Pain does go into the ears. She states that the sore throat has been ongoing x 1 month but worsened over the last 2 weeks. She has been running low grade fever off and on. Been taking Ibuprofen every 6 hours. No chest congestion. Past medical history, appointments, medications, allergies reviewed. Previous Medical History PAST MEDICAL HISTORY Diagnosis Date Anemia complicating , second trimester 07/04/2020 depression anxiety fracture 11 years old right wrist-fell out of bunk bed H/O delivery, currently Myocarditis (HCC) age 18 months [address] Lay--recheck age 18 yrs PMH - PAST MEDICAL HISTORY OF 06/2007 Right wrist fracture PMH - PAST MEDICAL HISTORY OF normal color vision depression Previous Surgical History PAST SURGICAL HISTORY Procedure Laterality Date DELIVERY ONLY 01/05/2022 [facility] PAST SURGICAL HISTORY OF wisdom teeth Family History FAMILY HISTORY Problem Relation Age of Onset other (Celiac disease) Mother Hypertension Father No Known Problems Sister No Known Problems Sister other (other) Brother No Known Problems Brother No Known Problems Brother No Known Problems Brother Diabetes Maternal Grandmother Breast Cancer Maternal Grandmother No Known Problems Maternal Grandfather Hypertension Paternal Grandmother Colon Cancer Paternal Grandmother Hyperlipidemia Paternal Grandmother Cancer Paternal Grandfather Bladder Cancer No Known Problems Son Patient Allergies ALLERGIES Allergen Reactions Pollen Other: See Comments Nasal congestion and drainage Current Medications Current Outpatient Medications on File Prior to Visit Medication Sig amoxicillin (AMOXIL) 875 mg tablet Take 1 tablet by mouth twice daily for 7 days. DULoxetine (CYMBALTA) 60 mg capsule Take 60 mg by mouth once daily. FLUoxetine (PROZAC) 20 mg capsule Take 1 capsule by mouth once daily. Take along with 40 mg capsule (Patient not taking: Reported on 08/08/2022) medroxyPROGESTERone (DEPO-PROVERA) 150 mg/mL Inject 1 mL intramuscularly every 12 weeks. ferrous sulfate (IRON ORAL) Take by mouth. (Patient not taking: Reported on 02/19/2022 ) FLUoxetine HCl (PROZAC) 40 mg capsule Take 1 capsule by mouth once daily. (Patient not taking: Reported on 08/08/2022) multivitamin (CLASSIC ) 28 mg iron- 800 mcg tab(s) Take 1 tablet by mouth once daily. (Patient not taking: Reported on 02/19/2022 ) ondansetron orally disintegrating (ZOFRAN ODT) 4 mg disintegrating tablet Take 1 tablet by mouth every 8 hours as needed for nausea/vomiting. (Patient not taking: Reported on 01/18/2022 ) Current Facility-Administered Medications on File Prior to Visit Medication medroxyPROGESTERone 150 mg injection (DEPO-PROVERA) Social History Social History Tobacco Use Smoking status: Never Smokeless tobacco: Never Vaping Use Vaping Use: Never used Substance Use Topics Alcohol use: Not Currently Drug use: No EXAM: BP 118/70 Pulse 100 Resp 16 Wt 74.1 kg (163 lb 6.4 oz) LMP 08/27/2022 (Exact Date) No BMI 29.69 kg/m General Appearance: Well appearing, alert, in no acute distress, well-hydrated, well nourished.. Ears: External ears normal, canals clear. Oropharynx: Lips, mucosa, and tongue normal, teeth and gums normal, oropharynx normal. Neck: glands slightly swollen on left side, tenderness on palpation. Lungs: Lungs clear to auscultation. No wheezing, rhonchi, rales.. Heart: RRR without murmur, gallop, or rubs. No ectopy. Health Maintenance List COVID-19 VACCINE(1) Never done INFLUENZA(1) due on 04/18/2022 PAP TESTING due on 06/19/2024 DTAP,TDAP,TD(9 - Td or Tdap) due on 11/14/2031 HEPATITIS B Completed HPV VACCINE Completed HEPATITIS C SCREENING Completed HIV SCREENING Completed Data reviewed Appointment on 08/28/2022 Component Date Value [place] Test 08/28/2022 Negative Office Visit on 08/19/2022 Component Date Value Strep A (POCT) 08/19/2022 Negative Procedural Control 08/19/2022 Valid ASSESSMENT/PLAN: 1. Sore throat - ICD9: 462, ICD10: J02.9 (primary diagnosis) - doxycycline 100 mg BID x 10 days Continue with symptomatic tx 2. Depression, unspecified depression type - ICD9: 311, ICD10: F32.A Continue current medications. Continue with [facility] services Follow up as needed. I agree with the Chief Complaint, ROS, and Past Histories independently gathered by the clinical technical support consultant and the remaining scribed note accurately describes my personal service to the patient. Medical Decision Making: Problems: Low: Acute, uncomplicated illness or injury Risk: Moderate: Drug management Medical Decision Making Level: 3 - Low Surjit Aguirre MD The documentation for this note was completed by Candy Rousseau Ma acting as scribe for Surjit Aguirre MD. September 02, 2022 3:45 PM. Candy Rousseau Ma documented in this encounter [facility] 08-28-2022 History of Present illness Narrative Chief Complaint Patient presents with: Sore Throat: X 1 week HPI Kimberly Jeong is a 26 year old female who presents here today for Above Complaints.. Patient evaluated in on 08/19 with following HPI: 26 year old female with PMH anemia and depression presents with complaints of illness. Acute onset Friday night +sore throat + nasal congestion + cough Denies dyspnea. Denies SOB. Denies CP. States yesterday she thought she felt a little better, Today worsening and accompanied with right ear pain. 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 The history is provided by the patient. No educational speech language clinician was used. URI She complains of cough. There is no chest tightness, difficulty breathing, frequent throat clearing, hemoptysis, hoarse voice, shortness of breath, sputum production or wheezing. This is a new problem. The current episode started in the past 7 days. The problem occurs constantly. The problem has been gradually worsening. The cough is non-productive. Associated symptoms include ear congestion, ear pain, nasal congestion and a sore throat. Pertinent negatives include no appetite change, chest pain, dyspnea on exertion, fever, headaches, heartburn, malaise/fatigue, myalgias, orthopnea, PND, postnasal drip, rhinorrhea, sneezing, sweats, trouble swallowing or weight loss. Her symptoms are aggravated by nothing. Her symptoms are alleviated by nothing. She reports no improvement on treatment. There are no known risk factors for lung disease. There is no history of asthma, bronchiectasis, bronchitis, COPD, emphysema or pneumonia. Strep testing negative. Found to have right otitis media and was started on Amoxicillin for 7 days. Today, states that she finished the amoxicillin and ear is improved. Still complaining of sore throat which worsens as the day goes on and has hoarse voice in the morning. Treating symptoms with ibuprofen OTC for pain. Admits to globus sensation. Denies dysphagia, fever/chills, nausea, vomiting, ear pain/fullness, lymphadenopathy, nasal congestion, rhinorrhea. Past medical history, appointments, medications, allergies reviewed. Previous Medical History PAST MEDICAL HISTORY Diagnosis Date Anemia complicating , second trimester 07/04/2020 depression anxiety fracture 11 years old right wrist-fell out of bunk bed H/O delivery, currently Myocarditis (HCC) age 18 months 2006 cleared [address]. Lay--[place] age 18 yrs PMH - PAST MEDICAL HISTORY OF 06/2007 Right wrist fracture PMH - PAST MEDICAL HISTORY OF normal color vision depression Previous Surgical History PAST SURGICAL HISTORY Procedure Laterality Date DELIVERY ONLY 01/05/2022 [facility] PAST SURGICAL HISTORY OF wisdom teeth Family History FAMILY HISTORY Problem Relation Age of Onset other (Celiac disease) Mother Hypertension Father No Known Problems Sister No Known Problems Sister other (other) Brother No Known Problems Brother No Known Problems Brother No Known Problems Brother Diabetes Maternal Grandmother Breast Cancer Maternal Grandmother No Known Problems Maternal Grandfather Hypertension Paternal Grandmother Colon Cancer Paternal Grandmother Hyperlipidemia Paternal Grandmother Cancer Paternal Grandfather Bladder Cancer No Known Problems Son Patient Allergies ALLERGIES Allergen Reactions Pollen Other: See Comments Nasal congestion and drainage Current Medications Current Outpatient Medications on File Prior to Visit Medication Sig DULoxetine (CYMBALTA) 60 mg capsule Take 60 mg by mouth once daily. FLUoxetine (PROZAC) 20 mg capsule Take 1 capsule by mouth once daily. Take along with 40 mg capsule (Patient not taking: Reported on 08/08/2022) medroxyPROGESTERone (DEPO-PROVERA) 150 mg/mL Inject 1 mL intramuscularly every 12 weeks. ferrous sulfate (IRON ORAL) Take by mouth. (Patient not taking: Reported on 02/19/2022 ) FLUoxetine HCl (PROZAC) 40 mg capsule Take 1 capsule by mouth once daily. (Patient not taking: Reported on 08/08/2022) multivitamin (CLASSIC ) 28 mg iron- 800 mcg tab(s) Take 1 tablet by mouth once daily. (Patient not taking: Reported on 02/19/2022 ) ondansetron orally disintegrating (ZOFRAN ODT) 4 mg disintegrating tablet Take 1 tablet by mouth every 8 hours as needed for nausea/vomiting. (Patient not taking: Reported on 01/18/2022 ) Current Facility-Administered Medications on File Prior to Visit Medication medroxyPROGESTERone 150 mg injection (DEPO-PROVERA) Social History Social History Tobacco Use Smoking status: Never Smokeless tobacco: Never Vaping Use Vaping Use: Never used Substance Use Topics Alcohol use: Not Currently Drug use: No Review of Symptoms REVIEW OF SYSTEMS See HPI EXAM: BP 120/82 Pulse 81 Temp 37.3 C (99.1 F) (Right Tympanic) Resp 16 Wt 69.9 kg (154 lb) LMP 08/07/2022 (Exact Date) SpO2 97% BMI 27.98 kg/m General Appearance: Well appearing, alert, in no acute distress, well-hydrated, well nourished.. Skin: Skin color, texture, turgor normal, no suspicious rashes or lesions. Head: Normocephalic, no masses, lesions, tenderness or abnormalities. Eyes: Anicteric sclera. Pupils are equally round and reactive to light. Extraocular movements are intact. . Ears: External ears normal, canals clear. TMs normal. Oropharynx: Lips, mucosa, and tongue normal, teeth and gums normal, oropharynx normal. Neck: Mildly tender submandibular lymphadenopathy bilaterally. Lungs: Lungs clear to auscultation. No wheezing, rhonchi, rales.. Heart: RRR without murmur, gallop, or rubs. No ectopy. Health Maintenance List COVID-19 VACCINE(1) Never done INFLUENZA(1) due on 04/18/2022 PAP TESTING due on 06/19/2024 DTAP,TDAP,TD(9 - Td or Tdap) due on 11/14/2031 HEPATITIS B Completed HPV VACCINE Completed HEPATITIS C SCREENING Completed HIV SCREENING Completed ASSESSMENT/PLAN: 1. Pharyngitis, unspecified etiology - ICD9: 462, ICD10: J02.9 - suspect viral. Previous strep testing negative and completed amoxicillin. No history of mono. Will test today. - Discussed supportive care treatment with fluids, rest and analgesia. - The patient may also use warm salt water gargles, throat lozenges and/or OTC throat spray as needed. - The patient should follow up in one week if symptoms persist or worsen - Call back if drooling, increased temperature, symptoms of dehydration and/or still sick in one week - MONOTEST, INFECTIOUS MONO 2. Globus sensation - ICD9: 784.99, ICD10: R09.89 Patient denies GERD or dysphagia. Has odynophagia with sore throat. May be 2/2 post nasal drip. If sore throat resolves and symptom persists, would refer for EGD. Tramaine Rosales MD documented in this encounter [facility] 08-19-2022 Instructions Kanwal Wiggins APRN.SAMPLE MOUNTER - 08/19/2022 8:33 AM EST Next to the common cold, an ear infection is the most common childhood illness. In fact, most children have at least one ear infection by the time they are 3 years old. Many ear infections clear up without causing any lasting problems. How do ear infections develop? When a child has a cold, nose or throat infection, or allergy, the mucus and fluid can enter the eustachian tube causing a buildup of fluid in the middle ear. If bacteria or a virus infects this fluid, it can cause swelling and pain in the ear. This type of ear infection is called acute otitis media (middle ear inflammation). Is my child at risk for developing an ear infection? Risk factors for developing childhood ear infections include Age. Infants and young children are more likely to get ear infections than older children. Ear infections occur most often in children between 6 months and 3 years of age. Family history. Ear infections can run in families. Children are more likely to have repeated middle ear infections if a parent or sibling also had repeated ear infections. Colds. Colds often lead to ear infections. Children in group child therapist settings have a higher chance of passing their colds to each other because they are exposed to more viruses from the other children. Tobacco smoke. Children who breathe in someone else s tobacco smoke have a higher risk of developing health problems, including ear infections. How can I reduce the risk of an ear infection? Some things you can do to help reduce your child s risk of getting an ear infection are Breastfeed instead of bottle-feed. may decrease the risk of frequent colds and ear infections. Keep your child away from tobacco smoke, especially in your home or car. Throw away pacifiers or limit to daytime use, if your child is older than 1 year. Keep vaccinations up to date. How are ear infections treated? Because pain is often the first and most uncomfortable symptom of an ear infection, it s important to help comfort your child by giving her pain medicine. Acetaminophen and ibuprofen are czyg-hqd-yuoifvm (OTC) pain medicines that may help decrease much of the pain. Be sure to use the right dosage for your child s age and size. Don t give aspirin to your child. There are also ear drops that may relieve ear pain for a short time. Ask your injection molding operator whether these drops should be used. There is no need to use OTC cold medicines (decongestants and antihistamines), because they don t help clear up ear infections. Not all ear infections require antibiotics. Some children who don t have a high fever and aren t severely ill may be observed without antibiotics. In most cases, pain and fever will improve in the first 1 to 2 days. If your child is younger than 2 years, has drainage from the ear, has a fever higher than 102.5 F, seems to be in a lot of pain, is unable to sleep, isn t eating, or is acting ill, it s important to call your injection molding operator. If your child s condition doesn t improve within 3 days, or worsens at any time, call your injection molding operator. Your injection molding operator may wish to see your child and may prescribe an antibiotic to take by mouth, if one wasn t given initially. If an antibiotic was already started, your child may need a different antibiotic. Be sure to follow your injection molding operator s instructions closely. If an antibiotic was prescribed, make sure your child finishes the entire prescription. If you stop the medicine too soon, some of the bacteria that caused the ear infection may still be present and cause an infection to start all over again. As the infection starts to clear up, your child might feel a popping in the ears. This is a normal sign of healing. Children with ear infections don t need to stay home if they are feeling well, as long as a child therapist provider or someone at school can give them their medicine properly, if needed. If your child needs to travel in an airplane, or wants to swim, contact your injection molding operator for specific Instructions. Are there complications from ear infections? Although it s very rare, complications from ear infections can develop, including the following: An infection of the inner ear that causes dizziness and imbalance (labyrinthitis) An infection of the skull behind the ear (mastoiditis) Scarring or thickening of the eardrum Loss of feeling or movement in the face (facial paralysis) Permanent hearing loss It s normal for children to have several ear infections when they are young--even as many as 2 separate infections within a few months. Most ear infections that develop in children are minor. Recurring ear infections may be a nuisance, but they usually clear up without any lasting problems. With proper care and treatment, ear infections can usually be managed successfully. But, if your child has one ear infection after another for several months, you may want to talk about other treatment options with your injection molding operator. documented in this encounter [facility] 08-19-2022 History of Present illness Narrative This note was created using [employer]. Subjective Kimberly Jeong is a 26 year old female. 26 year old female with PMH anemia and depression presents with complaints of illness. Acute onset Friday night +sore throat + nasal congestion + cough Denies dyspnea. Denies SOB. Denies CP. States yesterday she thought she felt a little better, Today worsening and accompanied with right ear pain. 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 The history is provided by the patient. No educational speech language clinician was used. URI She complains of cough. There is no chest tightness, difficulty breathing, frequent throat clearing, hemoptysis, hoarse voice, shortness of breath, sputum production or wheezing. This is a new problem. The current episode started in the past 7 days. The problem occurs constantly. The problem has been gradually worsening. The cough is non-productive. Associated symptoms include ear congestion, ear pain, nasal congestion and a sore throat. Pertinent negatives include no appetite change, chest pain, dyspnea on exertion, fever, headaches, heartburn, malaise/fatigue, myalgias, orthopnea, PND, postnasal drip, rhinorrhea, sneezing, sweats, trouble swallowing or weight loss. Her symptoms are aggravated by nothing. Her symptoms are alleviated by nothing. She reports no improvement on treatment. There are no known risk factors for lung disease. There is no history of asthma, bronchiectasis, bronchitis, COPD, emphysema or pneumonia. PAST MEDICAL HISTORY Diagnosis Date Anemia complicating , second trimester 07/04/2020 depression anxiety fracture 11 years old right wrist-fell out of bunk bed H/O delivery, currently Myocarditis (HCC) age 18 months 2006 cleared for [address]. Lay--recheck age 18 yrs PMH - PAST MEDICAL HISTORY OF 06/2007 Right wrist fracture PMH - PAST MEDICAL HISTORY OF normal color vision depression PAST SURGICAL HISTORY Procedure Laterality Date DELIVERY ONLY 01/05/2022 [facility] PAST SURGICAL HISTORY OF wisdom teeth ALLERGIES Pollen MEDICATIONS amoxicillin (AMOXIL) 875 mg tablet^Take 1 tablet by mouth twice daily for 7 days.^Disp: 14 tablet^Rfl: 0 DULoxetine (CYMBALTA) 60 mg capsule^Take 60 mg by mouth once daily.^Disp: ^Rfl: FLUoxetine (PROZAC) 20 mg capsule^Take 1 capsule by mouth once daily. Take along with 40 mg capsule^Disp: 30 capsule^Rfl: 5 (Patient not taking: Reported on 08/08/2022) medroxyPROGESTERone (DEPO-PROVERA) 150 mg/mL^Inject 1 mL intramuscularly every 12 weeks.^Disp: 1 Each^Rfl: 4 ferrous sulfate (IRON ORAL)^Take by mouth.^Disp: ^Rfl: (Patient not taking: Reported on 02/19/2022 ) FLUoxetine HCl (PROZAC) 40 mg capsule^Take 1 capsule by mouth once daily.^Disp: 90 capsule^Rfl: 1 (Patient not taking: Reported on 08/08/2022) multivitamin (CLASSIC ) 28 mg iron- 800 mcg tab(s)^Take 1 tablet by mouth once daily.^Disp: ^Rfl: (Patient not taking: Reported on 02/19/2022 ) ondansetron orally disintegrating (ZOFRAN ODT) 4 mg disintegrating tablet^Take 1 tablet by mouth every 8 hours as needed for nausea/vomiting.^Disp: 30 tablet^Rfl: 0 (Patient not taking: Reported on 01/18/2022 ) FAMILY HISTORY Problem Relation Age of Onset other (Celiac disease) Mother Hypertension Father No Known Problems Sister No Known Problems Sister other (other) Brother No Known Problems Brother No Known Problems Brother No Known Problems Brother Diabetes Maternal Grandmother Breast Cancer Maternal Grandmother No Known Problems Maternal Grandfather Hypertension Paternal Grandmother Colon Cancer Paternal Grandmother Hyperlipidemia Paternal Grandmother Cancer Paternal Grandfather Bladder Cancer No Known Problems Son Social History Tobacco Use Smoking status: Never Smokeless tobacco: Never Vaping Use Vaping Use: Never used Substance Use Topics Alcohol use: Not Currently Drug use: No Review of Systems Constitutional: Negative for appetite change, fever, malaise/fatigue and weight loss. HENT: Positive for congestion, ear pain and sore throat. Negative for hoarse voice, postnasal drip, rhinorrhea, sneezing and trouble swallowing. Eyes: Negative for pain, discharge and itching. Respiratory: Positive for cough. Negative for apnea, hemoptysis, sputum production, chest tightness, shortness of breath and wheezing. Cardiovascular: Negative for chest pain, dyspnea on exertion and PND. Gastrointestinal: Negative for abdominal pain, diarrhea, heartburn, nausea and vomiting. Musculoskeletal: Negative for arthralgias, back pain and myalgias. Skin: Negative for color change, pallor, rash and wound. Allergic/Immunologic: Negative for environmental allergies, food allergies and immunocompromised state. Neurological: Negative for dizziness, facial asymmetry and headaches. Hematological: Negative for adenopathy. Does not bruise/bleed easily. Psychiatric/Behavioral: Negative for agitation and behavioral problems. Objective BP 124/82 Pulse 72 Temp 36.4 C (97.5 F) Resp 18 Wt 69.9 kg (154 lb) LMP 08/07/2022 (Exact Date) SpO2 98% BMI 27.98 kg/m Physical Exam Vitals and nursing note reviewed. Constitutional: General: She is not in acute distress. Appearance: Normal appearance. She is normal weight. She is not ill-appearing, toxic-appearing or diaphoretic. HENT: Head: Normocephalic and atraumatic. Right Ear: Ear canal and external ear normal. Left Ear: Ear canal and external ear normal. Ears: Comments: Right TM erythematous and bulging. Left TM normal Nose: Nose normal. No congestion or rhinorrhea. Mouth/Throat: Mouth: Mucous membranes are moist. Pharynx: No oropharyngeal exudate or posterior oropharyngeal erythema. Eyes: General: Right eye: No discharge. Left eye: No discharge. Extraocular Movements: Extraocular movements intact. Conjunctiva/sclera: Conjunctivae normal. Pupils: Pupils are equal, round, and reactive to light. Cardiovascular: Rate and Rhythm: Normal rate and regular rhythm. Pulses: Normal pulses. Heart sounds: Normal heart sounds. No murmur heard. No friction rub. Pulmonary: Effort: Pulmonary effort is normal. No respiratory distress. Breath sounds: Normal breath sounds. No stridor. No wheezing, rhonchi or rales. Chest: Chest wall: No tenderness. Abdominal: General: Abdomen is flat. There is no distension. Palpations: Abdomen is soft. There is no mass. Tenderness: There is no abdominal tenderness. There is no right CVA tenderness, left CVA tenderness, guarding or rebound. Hernia: No hernia is present. Musculoskeletal: General: No swelling, tenderness, deformity or signs of injury. Normal range of motion. Cervical back: Normal range of motion and neck supple. No rigidity. Right lower leg: No edema. Left lower leg: No edema. Lymphadenopathy: Cervical: No cervical adenopathy. Skin: General: Skin is warm and dry. Capillary Refill: Capillary refill takes less than 2 seconds. Coloration: Skin is not jaundiced or pale. Findings: No bruising, erythema, lesion or rash. Neurological: General: No focal deficit present. Mental Status: She is alert and oriented to person, place, and time. Cranial Nerves: No cranial nerve deficit. Sensory: No sensory deficit. Motor: No weakness. Coordination: Coordination normal. Gait: Gait normal. Psychiatric: Mood and Affect: Mood normal. Behavior: Behavior normal. Thought Content: Thought content normal. Judgment: Judgment normal. Assessment and Plan ASSESSMENT/PLAN: 1. Pharyngitis, unspecified etiology - ICD9: 462, ICD10: J02.9 (primary diagnosis) - Alere Strep Test NEGATIVE, no culture pending - Discussed supportive care treatment with fluids, rest and analgesia. - The patient may also use OTC cough and cold meds as needed, warm salt water gargles, throat lozenges and/or OTC throat spray as needed, and nasal saline gtts and suction prn. - Contagious dz precautions discussed- including considered contagious until on antibiotics for 24 hours - The patient should follow up in 3-5 days if symptoms persist or worsen - Call back if drooling, increased temperature, symptoms of dehydration and/or still sick in one week - STREP A MOLECULAR (POC) 2. Acute otitis media, right - ICD9: 382.9, ICD10: H66.91 - Will begin treatment with as per antibiotic as written, see orders - The patient should also be given OTC cough and cold meds as needed, warm salt water gargles, throat lozenges and/or OTC throat spray as needed, and nasal saline gtts and suction prn for the first 5-7 days of treatment. - Supportive care with plenty of fluids, rest, and analgesia prn. - Follow up in 3-5 days if symptoms persist or worsen. Kanwal Wiggins APRN.CNP documented in this encounter [facility] 05-16-2022 History of Present illness Narrative Patient identified by name and date of . Kimberly Jeong is here for a Depo Provera injection. Patient brought medication. Date last injected: 02/21/22 Depo-Provera, 150 mg, administered IM left upper quadrant gluteus, Lot # [id number], expiration date 01/2024. Depo-Provera was given without incident. Date of last menses: Patient's last menstrual period was 05/04/2021 (exact date). Irregular bleeding - No Menses ceased - Yes STD prevention discussed: Yes Patient instructed to return to clinic on 12 weeks. [email or web address] Provider Rosario Garcia APRN.CNM was present in office at time of injection. Luz Cody RN documented in this encounter [facility] 03-22-2022 Instructions Rosario Garcia APRN.CNM - 03/22/2022 10:53 AM EDT Ibuprofen 800 mg by mouth every 8 hours to help with bleeding documented in this encounter [facility] 03-22-2022 History of Present illness Narrative Kimberly Jeong is a 26 year old female who presents for problem visit of continued vaginal bleeding. HPI: Depo Provera injection on 02/19/22. Started period on 03/02/22 and continuing to have spotting and bleeding today. Wearing regular tampons and having to change every 2-3 hours. Denies passing any clots or feeling dizzy/light headed. 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 Lay--maribel age 18 yrs PMH - PAST MEDICAL HISTORY OF 06/2007 Right wrist fracture PMH - PAST MEDICAL HISTORY OF normal color vision depression PAST SURGICAL HISTORY Procedure Laterality Date DELIVERY ONLY 01/05/2022 [facility] PAST SURGICAL HISTORY OF wisdom teeth FAMILY HISTORY Problem Relation Age of Onset other (Celiac disease) Mother Hypertension Father No Known Problems Sister No Known Problems Sister other (other) Brother No Known Problems Brother No Known Problems Brother No Known Problems Brother Diabetes Maternal Grandmother Breast Cancer Maternal Grandmother No Known Problems Maternal Grandfather Hypertension Paternal Grandmother Colon Cancer Paternal Grandmother Hyperlipidemia Paternal Grandmother Cancer Paternal Grandfather Bladder Cancer No Known Problems Son Social History Tobacco Use Smoking status: Never Smoker Smokeless tobacco: Never Used Vaping Use Vaping Use: Never used Substance Use Topics Alcohol use: Not Currently Drug use: No Current Outpatient Medications Medication Sig FLUoxetine (PROZAC) 20 mg capsule Take 1 capsule by mouth once daily. Take along with 40 mg capsule medroxyPROGESTERone (DEPO-PROVERA) 150 mg/mL Inject 1 mL intramuscularly every 12 weeks. FLUoxetine HCl (PROZAC) 40 mg capsule Take 1 capsule by mouth once daily. ferrous sulfate (IRON ORAL) Take by mouth. (Patient not taking: Reported on 02/19/2022 ) multivitamin (CLASSIC ) 28 mg iron- 800 mcg tab(s) Take 1 tablet by mouth once daily. (Patient not taking: Reported on 02/19/2022 ) ondansetron orally disintegrating (ZOFRAN ODT) 4 mg disintegrating tablet Take 1 tablet by mouth every 8 hours as needed for nausea/vomiting. (Patient not taking: Reported on 01/18/2022 ) Current Facility-Administered Medications Medication Dose Route Frequency medroxyPROGESTERone 150 mg injection (DEPO-PROVERA) 150 mg INTRAMUSCULAR every 12 weeks Allergies As of Date: 03/22/2022 Allergen Noted Reaction POLLEN 12/05/2011 Other: See Comments Fully Assessed 03/22/2022 REVIEW OF SYSTEMS Abdomen: No bloating, early satiety, indigestion, or increased flatulence. No abdominal pain, nausea, vomiting, diarrhea, or constipation. Bladder: No dysuria, gross hematuria, urinary frequency, urinary urgency, or incontinence. Breast: No breast lumps, nipple d/c, overlying skin changes, redness or skin retraction. Expanded ROS: N/A Allergies and current medication updated:Yes EXAM: BP 118/64 Wt 152 lb (68.9kg) LMP 05/04/2021 GENERAL: pleasant, female in no apparent distress NEURO: alert and oriented x3,exam grossly non-focal EXTREMITIES: normal ASSESSMENT/PLAN: 1. Breakthrough bleeding on depo provera - ICD9: 626.6, ICD10: N92.1 - Reviewed bleeding and or spotting can be normal after receiving Depo Provera injection - Bleeding precautions reviewed - Reassurance provided - Will try Ibuprofen 800 mg PO every 8 hours for a couple of days to try and help decrease bleeding - Aware she needs to give body time to adjust to hormone - Discussed starting OCP if continues with breakthrough bleeding. Rosario Garcia APRN.CNM I spent a total of 25 minutes on the date of the service which included preparing to see the patient, [id number] patient care, completing clinical documentation, counseling and educating the patient/family/caregiver and ordering medications, tests, or procedures Medical Decision Making Rosario Garcia APRN.CNM documented in this encounter [facility] 03-15-2022 Miscellaneous Notes Bleeding can be normal for the first 3 months after Depo injection. It was not on the first 5 days of menses or exclusive breast-feeding, would recommend test to rule that out. Otherwise okay to monitor at this time. As long as not feeling a pad every hour and no dizzy or lightheadedness this can be normal. Please let me know if she has any further questions. Patient called. Delivered 01/05 via . First menses since delivery started on 03/02. Initially spotting. It's been almost 2 weeks and she's still bleeding. Changing a regular tampon every 3-4 hours. Cramping pain is a 3-4 on pain scale. Denies dizziness, fatigue, CP, or SOB. First dose of Depo provera given on 02/21/22. Had unprotected intercourse 2 days later. Has had intercourse since that time as well. Asking if her bleeding is normal. Bibiana Hernandes RN documented in this encounter [facility] 03-01-2022 History of Present illness Narrative Chief Complaint No chief complaint on file. HPI Kimberly Jeong is a 26 year old female who presents here today for a 2 month follow up. Pt here today for a 3 month follow up. 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 Following with [facility] COST ACCOUNTANT. Depression - Was started back on her Prozac 20 mg daily regimen about 6 months ago, increased to 40 mg daily 3 months ago. Depression OK; noticing more anxiety lately. Meeting with counselor next week Past medical history, appointments, medications, allergies reviewed. Previous Medical History PAST MEDICAL HISTORY Diagnosis Date Anemia complicating , second trimester 07/04/2020 depression anxiety fracture 11 years old right wrist-fell out of bunk bed H/O delivery, currently Myocarditis (HCC) age 18 months [address] Lay--recheck age 18 yrs PMH - PAST MEDICAL HISTORY OF 06/2007 Right wrist fracture PMH - PAST MEDICAL HISTORY OF normal color vision depression Previous Surgical History PAST SURGICAL HISTORY Procedure Laterality Date DELIVERY ONLY 01/05/2022 [facility] PAST SURGICAL HISTORY OF wisdom teeth Family History FAMILY HISTORY Problem Relation Age of Onset other (Celiac disease) Mother Hypertension Father No Known Problems Sister No Known Problems Sister other (other) Brother No Known Problems Brother No Known Problems Brother No Known Problems Brother Diabetes Maternal Grandmother Breast Cancer Maternal Grandmother No Known Problems Maternal Grandfather Hypertension Paternal Grandmother Colon Cancer Paternal Grandmother Hyperlipidemia Paternal Grandmother Cancer Paternal Grandfather Bladder Cancer No Known Problems Son Patient Allergies ALLERGIES Allergen Reactions Pollen Other: See Comments Nasal congestion and drainage Current Medications Current Outpatient Medications on File Prior to Visit Medication Sig ferrous sulfate (IRON ORAL) Take by mouth. FLUoxetine HCl (PROZAC) 40 mg capsule Take 1 capsule by mouth once daily. multivitamin (CLASSIC ) 28 mg iron- 800 mcg tab(s) Take 1 tablet by mouth once daily. HYDROXYprogest,PF,,preg presv, (JACOB, PF,) 275 mg/1.1 mL auto-injector Inject 275 mg subcutaneously one time a week. (Patient not taking: Reported on 01/18/2022 ) ondansetron orally disintegrating (ZOFRAN ODT) 4 mg disintegrating tablet Take 1 tablet by mouth every 8 hours as needed for nausea/vomiting. (Patient not taking: Reported on 01/18/2022 ) No current facility-administered medications on file prior to visit. Social History Social History Tobacco Use Smoking status: Never Smoker Smokeless tobacco: Never Used Vaping Use Vaping Use: Never used Substance Use Topics Alcohol use: Not Currently Drug use: No EXAM: LMP 05/04/2021 (Exact Date) General Appearance: Well appearing, alert, in no acute distress, well-hydrated, well nourished.. Lungs: Lungs clear to auscultation. No wheezing, rhonchi, rales.. Heart: RRR without murmur, gallop, or rubs. No ectopy. Health Maintenance List COVID-19 VACCINE(1) Never done PAP TESTING due on 06/19/2024 DTAP,TDAP,TD(9 - Td or Tdap) due on 11/14/2031 HPV VACCINE Completed INFLUENZA Completed HEPATITIS C SCREENING Completed HIV SCREENING Completed Data reviewed none ASSESSMENT/PLAN: 1. Anxiety with depression - ICD9: 300.4, ICD10: F41.8 Increase prozac to 60 mg daily Follow up in 3 months Medical Decision Making: Problems: Low: Stable chronic illness Risk: Moderate: Drug management Medical Decision Making Level: 3 - Low Surjit Aguirre MD documented in this encounter [facility] 02-21-2022 History of Present illness Narrative Patient identified by name and date of . Kimberly Jeong is here for a Depo Provera injection. Patient brought medication. Date last injected: first injection - negative test. Depo-Provera, 150 mg, administered IM right upper quadrant gluteus, Lot # [id number], expiration date 10/15/2023. Depo-Provera was given without incident. Date of last menses: Patient's last menstrual period was 05/04/2021 (exact date). Irregular bleeding - No Menses ceased - Yes STD prevention discussed: Yes Patient instructed to return to clinic in 12 weeks. [email or web address] Provider Yobani Darby MD was present in office at time of injection. Johanna Boland RN documented in this encounter [facility] 02-19-2022 History of Present illness Narrative VISIT Kimberly Jeong is a 26 year old year old here for visit. Used Depo provera prior to and desires to restart injections Delivery Summary:Primary C/S for arrest of descent, CPD, and OP position- SW 36 weeks gestation ROS/ Recovery: Feeding: Bottle feeding problems: None Menses since delivery: spotting started last Menstrual pattern prior to : Regular periods [place] since delivery: Resumed Depression: denies symptoms of depression. OB Depression and Anxiety Screening- This Encounter (since 02/18/2022) Over the past 2 weeks have you felt down, depressed, or hopeless? Negative Over the past two weeks, have you felt little interest or pleasure in doing things? Negative Feeling nervous, anxious or on edge 0-Not at all Not being able to stop or control worrying 0-Not al all Anxiety Pre-Screening Total (If >/= 3 additional questions will be reviewed) 0 Emotional support: Yes Bowel symptoms: No nausea, vomiting, or diarrhea, Negative for abdominal discomfort, blood in stools or black stools and change in bowel habits Abdomen: N/A Bladder symptoms: No dysuria, gross hematuria, urinary frequency, urinary urgency, or incontinence Other issues: None Last Pap: 2020 normal HPV: negative PAST MEDICAL HISTORY Diagnosis Date Anemia complicating , second trimester 07/04/2020 depression anxiety fracture 11 years old right wrist-fell out of bunk bed H/O delivery, currently Myocarditis (HCC) age 18 months 2006 cleared for [address]. Lay--recheck age 18 yrs PMH - PAST MEDICAL HISTORY OF 06/2007 Right wrist fracture PMH - PAST MEDICAL HISTORY OF normal color vision depression PAST SURGICAL HISTORY Procedure Laterality Date DELIVERY ONLY 01/05/2022 [facility] PAST SURGICAL HISTORY OF wisdom teeth FAMILY HISTORY Problem Relation Age of Onset other (Celiac disease) Mother Hypertension Father No Known Problems Sister No Known Problems Sister other (other) Brother No Known Problems Brother No Known Problems Brother No Known Problems Brother Diabetes Maternal Grandmother Breast Cancer Maternal Grandmother No Known Problems Maternal Grandfather Hypertension Paternal Grandmother Colon Cancer Paternal Grandmother Hyperlipidemia Paternal Grandmother Cancer Paternal Grandfather Bladder Cancer No Known Problems Son Social History Tobacco Use Smoking status: Never Smoker Smokeless tobacco: Never Used Vaping Use Vaping Use: Never used Substance Use Topics Alcohol use: Not Currently Drug use: No PHYSICAL EXAMINATION: BP 108/60 Wt 150 lb (68.0kg) LMP 05/04/2021 GENERAL: pleasant, female in no apparent distress HEENT: Normocephalic, atraumatic, mucus membranes moist and no lesions NECK: Supple, full range of motion, no adenopathy and thyroid normal DERMATOLOGY: Normal, without lesions, non-icteric and non-hirsute BREAST: soft, non-tender, symmetric, no dominant mass, normal nipple-areolar complex, no lymphadenopathy and no nipple discharge CHEST: Normal inspiratory effort ABDOMEN: soft, non-tender and no masses. INCISION: No incisional redness, swelling, or drainage PELVIC: external genitalia normal, normal Bartholin's glands, urethra, [place]'s glands, no vulvar lesions, no cervical lesions, good vaginal support, physiologic discharge present, normal appearing perineal body and perianal region BIMANUAL: uterus normal size, shape and consistency, no adnexal masses, non-tender and no cervical motion tenderness NEURO: alert and oriented x3,exam grossly non-focal EXTREMITIES: normal ASSESSMENT AND PLAN: 26 year old status post CS with normal course. Contraception plan: Depo Provera Follow up: RTC for annual exams and PRN, RTC for Depo-Provera injections- orders placed Rosario Garcia APRN.CNM documented in this encounter [facility] 01-18-2022 History of Present illness Narrative EARLY VISIT Kimberly Jeong is a 26 year old here for 2 week visit. Delivery Summary: Delivery information: Delivery date 01/05/2022 Delivery type C section Delivering clinician [place]: Name Clay MARIN Gender Male ROS: General: Denies any fever or chills Hypertension Screening: Headache? No. Visual Changes? No Epigastric Pain? No Increased Swelling? No Taking any BP medications at home? No If applicable, monitoring BP at home? (If Yes, include results) NA Mood: normal and anxious Depression: denies symptoms of depression. OB Depression and Anxiety Screening- This Encounter (since 01/17/2022) Over the past 2 weeks have you felt down, depressed, or hopeless? Positive - Further Testing Indicated Over the past two weeks, have you felt little interest or pleasure in doing things? Positive - Further Testing Indicated I have been able to laugh and see the funny side of things. 0 I have looked forward with enjoyment to things. 0 I have blamed myself unnecessarily when things went wrong. 2 I have been anxious or worried for no good reason. 1 I have felt scared or panicky for no good reason. 1 Things have been getting on top of me. 1 I have been so unhappy that I have had difficulty sleeping. 0 I have felt sad or miserable. 0 I have been so unhappy that I have been crying. 1 The thought of harming myself has occurred to me. 0 [place] Depression Scale Total 6 Feeling nervous, anxious or on edge 1-Several days Not being able to stop or control worrying 0-Not al all Anxiety Pre-Screening Total (If >/= 3 additional questions will be reviewed) 1 Feeding: Breast feeding problems: None Bladder: No dysuria, gross hematuria, urinary frequency, urinary urgency, or incontinence Bowel symptoms: Negative for abdominal discomfort, blood in stools or black stools and change in bowel habits Abdomen: She reports no incisional redness, tenderness, erythema Sleep: no sleep concerns, feels rested [place] since delivery: Not resumed Emotional support: Yes Exercise: N/A Other issues: None PHYSICAL EXAMINATION: LMP 05/04/2021 (Exact Date) Yes General: pleasant,female in no apparent distress, A&O x 3. Skin warm and intact. Breast: Deferred Abdomen: soft, non-tender and no masses /Incision: No incisional redness, swelling, or drainage Pelvic: Deferred Bimanual: Deferred ASSESSMENT AND PLAN: 1. 26 year old status post CS with normal course. 2. Contraception plan: Depo Provera . Reinforced 6-week pelvic rest. Encouraged condom usage should patient deviate. 3. Education: resources provided - see MA/RN note 4. Return for 6 week PP exam Follow up: Return to Clinic for 6 week visit and as needed documented in this encounter [facility] 01-07-2022 History of Present illness Narrative Patient delivered via by Dr. Holley on 01/05/22 at [facility]. See OB history. Luz Cody RN documented in this encounter [facility] 01-04-2022 Miscellaneous Notes 35w6d Patient calling to report that she is having pink mucous spotting. Isai all day every 5-10 minutes. Pain rate of 8-9 out of 10. Good FM. No LOF. Advised that office is closed and patient will need to go to L&D for evaluation. Hx of delivery. Notified SW. Called L&D. Updated episode faxed. Bibiana Hernandes RN documented in this encounter [facility] 12-31-2021 Miscellaneous Notes NASEEM-S: Kimberly Jeong is a 26 year old female who presents at 35w2d with RADHA: 02/02/2022, by Ultrasound for a routine visit. Good FM. Denies headache, visual changes, chest pain, shortness of breath, vaginal bleeding, leakage of fluid, or dysuria. Irregular contractions. O: See flow sheet Gen: No apparent distress Abd: Gravid, nontender S=D, 30 lb TWG, cephalic ASSESSMENT/PLAN: 1. 35 weeks gestation of P: 1) PTL precautions reviewed and when to call 2) RTO in one week 3) GBS next visit 4) Continue [place] till 36 weeks Kanwal Chow APRN.CNM documented in this encounter [facility] 12-31-2021 Niko Talbot MA - 12/31/2021 2:17 PM EDT SEQUENTIAL SCREENINGS The [facility] offers sequential screenings for women who are interested in screenings for chromosomal abnormalities and certain defects during a . The sequential screen combines ultrasound and blood tests to determine the risk of chromosomal abnormalities, including Down's Syndrome (Trisomy 21) and Trisomy 18, as well as open neural tube defects including spina bifida. Ultrasound examination is performed between 11 weeks and 13 weeks gestational age. Blood tests are drawn after the ultrasound and again later in the between 15 and 21 weeks gestational age. Please let your physician know if you are interested in this testing. It will require an appointment with our public address technician. This is not an ultrasound performed by a physician in our office during a routine visit. SIGNS AND SYMPTOMS OF LABOR 1. Contractions every 10 minutes or more often 2. Clear, pink, or brownish fluid (water) leaking from vagina 3. Feeling that baby is pushing down, pressure 4. Low, dull backache 5. Cramps that feel like a period 6. Cramps with or without diarrhea If you notice any of the above symptoms, contact our office at [phone] and ask to speak with a nurse. After hours, you can call doctors registry at [phone] OR call [facility] at [phone] and ask to have the doctor chief controller center paged. If you consider this an emergency, dial 9-1-7 or go to your nearest emergency department. NEED HELP? Are you dealing with a violent or abusive relationship? Are you a victim of rape or sexual assult? Call [facility] ([place]) 24 hour Crisis Hotline: 770.477.1302 or 218-359-4405. MANUAL Your Guide to a Healthy manual is now on-line. Visit [email or web address] ncyGuide to download your free copy documented in this encounter [facility] 12-27-2021 Miscellaneous Notes Kimberly Jeong is a 26 year old female who presents at 34w5d as an add on visit for lower back pain. Patient reports increasing constant lower back for the past 2 days. Rates back pain 3/10. Occasional nick ross that are not painful. Had intercourse with last night and had a couple episodes of pink tinged discharge after wiping today. Good movement. Concerned due to history of delivery at 33.2 weeks gestation s/p fall and PPROM and requests CE today. Denies headache, visual changes, chest pain, shortness of breath, vaginal bleeding, leakage of fluid, or dysuria. ASSESSMENT/PLAN: 1. 34 weeks gestation of - ICD9: V22.2, ICD10: Z3A.34 (primary diagnosis) 2. Acute bilateral low back pain without sciatica - ICD9: 724.2, 338.19, ICD10: M54.50 - UA - trace blood and leukocytes - Stretching exercises - Tylenol 1000 mg PO as needed for pain 3. H/O delivery, currently - ICD9: V23.89, ICD10: O09.899 - PTL and kick counts reviewed - Continue Jacob injections RTO- Friday for MUNIR Rosario Garcia APRN.CNM documented in this encounter [facility] 12-27-2021 Instructions Kirsten Talbot MA - 12/27/2021 2:26 PM EDT SEQUENTIAL SCREENINGS The [facility] offers sequential screenings for women who are interested in screenings for chromosomal abnormalities and certain defects during a . The sequential screen combines ultrasound and blood tests to determine the risk of chromosomal abnormalities, including Down's Syndrome (Trisomy 21) and Trisomy 18, as well as open neural tube defects including spina bifida. Ultrasound examination is performed between 11 weeks and 13 weeks gestational age. Blood tests are drawn after the ultrasound and again later in the between 15 and 21 weeks gestational age. Please let your physician know if you are interested in this testing. It will require an appointment with our public address technician. This is not an ultrasound performed by a physician in our office during a routine visit. SIGNS AND SYMPTOMS OF LABOR 1. Contractions every 10 minutes or more often 2. Clear, pink, or brownish fluid (water) leaking from vagina 3. Feeling that baby is pushing down, pressure 4. Low, dull backache 5. Cramps that feel like a period 6. Cramps with or without diarrhea If you notice any of the above symptoms, contact our office at [phone] and ask to speak with a nurse. After hours, you can call doctors registry at [phone] OR call [facility] at [phone] and ask to have the doctor chief controller center paged. If you consider this an emergency, dial or go to your nearest emergency department. NEED HELP? Are you dealing with a violent or abusive relationship? Are you a victim of rape or sexual assult? Call [facility] ([place]) 24 hour Crisis Hotline: 632.453.3451 or 863-613-3786. MANUAL Your Guide to a Healthy manual is now on-line. Visit [email or web address] ncyGuide to download your free copy documented in this encounter [facility] 12-27-2021 Miscellaneous Notes Thanks for the update! Rosario Garcia APRN.CNM Appointment scheduled for today at 2:15. documented in this encounter [facility] 12-19-2021 History of Present illness Narrative Patient referred to Blood Management for evaluation and treatment of pre-surgical anemia and/or iron deficiency. Non-surgical: anemia in Date of surgery: NA Medical/Surgical History: PAST MEDICAL HISTORY Diagnosis Date Anemia complicating , second trimester 07/04/2020 depression anxiety fracture 11 years old right wrist-fell out of bunk bed H/O delivery, currently Myocarditis ([facility]) age 18 months 2006 cleared for Sports [address] Dr. Lay--recheck age 18 yrs PMH - PAST MEDICAL HISTORY OF 06/2007 Right wrist fracture PMH - PAST MEDICAL HISTORY OF normal color vision depression PAST SURGICAL HISTORY Procedure Laterality Date PAST SURGICAL HISTORY OF wisdom teeth Other significant Medical/Surgical history: - None Current Outpatient Medications Medication Sig FLUoxetine HCl (PROZAC) 40 mg capsule Take 1 capsule by mouth once daily. multivitamin (CLASSIC ) 28 mg iron- 800 mcg tab(s) Take 1 tablet by mouth once daily. HYDROXYprogest,PF,,preg presv, (JACOB, PF,) 275 mg/1.1 mL auto-injector Inject 275 mg subcutaneously one time a week. ondansetron orally disintegrating (ZOFRAN ODT) 4 mg disintegrating tablet Take 1 tablet by mouth every 8 hours as needed for nausea/vomiting. Current Facility-Administered Medications Medication Dose Route Frequency iron sucrose 200 mg injection (VENOFER) 200 mg INTRAVENOUS 1/WK Current medications that may affect iron absorption and/or blood loss: - None Baseline laboratory values: WBC (k/uL) Date Value 12/17/2021 9.78 RBC (m/uL) Date Value 12/17/2021 4.23 Hemoglobin (g/dL) Date Value 12/17/2021 8.8 (L) Hematocrit (%) Date Value 12/17/2021 29.7 (L) MCV (fL) Date Value 12/17/2021 70.2 (L) MCH (pg) Date Value 12/17/2021 20.8 (L) MCHC (g/dL) Date Value 12/17/2021 29.6 (L) RDW-CV (%) Date Value 12/17/2021 16.6 (H) Platelet Count (k/uL) Date Value 12/17/2021 348 MPV (fL) Date Value 12/17/2021 10.5 Iron Date Value Ref Range Status 12/17/2021 19 (L) 41 - 186 ug/dL Final TIBC Date Value Ref Range Status 12/17/2021 >519 (H) 232 - 386 ug/dL Final Ferritin Date Value Ref Range Status 12/17/2021 7.9 (L) 14.7 - 205.1 ng/mL Final Transferrin Saturation Date Value Ref Range Status 12/17/2021 <4 (L) 15 - 57 % Final Assess for the need to augment a patient s natural red blood cell production: - Blood transfusion avoidance - Iron depletion Recommendations according to Blood Management patient care guidelines: - Other: recommend venofer 200 mg IV x 4 - already ordered by referring provider and scheduled. Clinical information is sent to a provider for review and evaluation for treatment. documented in this encounter [facility] 12-18-2021 Miscellaneous Notes Scheduled and notified. Pt returned call. She can be called back to schedule. Left message for patient to return call. When patient calls, please message and then warm transfer to [facility] PSR for scheduling. Sallie Goodwin Patient needing 4 total doses of iron sucrose-one a week. Please contact patient to schedule. Blood management order placed yesterday. Luz Cody RN Iron studies returned. Please assist patient with scheduling ordered iron infusions. Rosario Garcia APRN.CNM Per Shirley in [place] we need to get back Iron levels that were drawn today. Note I have routed this to [facility] PSR pool. Please keep phone note open until labs are back and patient is scheduled. ----- Message from Rosario Garcia APRN.CNM sent at 12/17/2021 1:35 PM EDT ----- Results reviewed. Referral placed to blood management for possible IV iron supplementation. Iron studies pending. Please assist patient with scheduling. Rosario Garcia APRN.CNM documented in this encounter [facility] 12-17-2021 Miscellaneous Notes Kimberly Jeong is a 26 year old female who presents at 33w2d Estimated Date of Delivery: 02/02/22 for a routine visit. Just completed growth ultrasound- awaiting final results. EFW 85%, EDSON 24. Discussed polyhydramnios diagnosis at EDSON of 26 and possible outcomes with that diagnosis. Feeling tired. HGB decreased from 9.1 to 8.8 despite taking oral iron. Blood management referral placed and patient to start IV FE. Good movement. Denies headache, visual changes, chest pain, shortness of breath, vaginal bleeding, leakage of fluid, or dysuria. Feeling well overall. 25 lbs TWG. ASSESSMENT/PLAN: 1. 33 weeks gestation of - ICD9: V22.2, ICD10: Z3A.33 (primary diagnosis) - URINE OB DIP B/O - Continue Jacob injections 2. Anemia complicating , third trimester - ICD9: 648.23, 285.9, ICD10: O99.013 - Blood management referral placed for IV FE PTL precautions reviewed. RTC in 2 weeks or sooner if needed. EMY Ellington APRN.CNM documented in this encounter [facility] 12-17-2021 Instructions Alla Skaggs Mi - 12/17/2021 1:17 PM EDT SEQUENTIAL SCREENINGS The [facility] offers sequential screenings for women who are interested in screenings for chromosomal abnormalities and certain defects during a . The sequential screen combines ultrasound and blood tests to determine the risk of chromosomal abnormalities, including Down's Syndrome (Trisomy 21) and Trisomy 18, as well as open neural tube defects including spina bifida. Ultrasound examination is performed between 11 weeks and 13 weeks gestational age. Blood tests are drawn after the ultrasound and again later in the between 15 and 21 weeks gestational age. Please let your physician know if you are interested in this testing. It will require an appointment with our public address technician. This is not an ultrasound performed by a physician in our office during a routine visit. SIGNS AND SYMPTOMS OF LABOR 1. Contractions every 10 minutes or more often 2. Clear, pink, or brownish fluid (water) leaking from vagina 3. Feeling that baby is pushing down, pressure 4. Low, dull backache 5. Cramps that feel like a period 6. Cramps with or without diarrhea If you notice any of the above symptoms, contact our office at [phone] and ask to speak with a nurse. After hours, you can call [facility] [employer] [facility] at [phone] OR call [facility] at [phone] and ask to have the doctor chief controller center paged. If you consider this an emergency, dial 9-1-1 or go to your nearest emergency department. NEED HELP? Are you dealing with a violent or abusive relationship? Are you a victim of rape or sexual assult? Call [facility] ([place]) 24 hour Crisis Hotline: 796.143.8529 or 928-242-8406. MANUAL Your Guide to a Healthy manual is now on-line. Visit [email or web address] ncyGuide to download your free copy documented in this encounter [facility] 12-04-2021 Miscellaneous Notes Toni Jeong is a 26 year old female who presents at 31w3d Estimated Date of Delivery: 02/02/22 for a routine visit. Had flu last week and was dehydrated. Was having some nick ross but feeling better now and no further contractions. Prozac recently increased to 40 mg PO daily. Feeling improved mood. Taking oral iron- still feeling tired. Repeat CBC and iron studies ordered for next visit. Good movement. Denies headache, visual changes, chest pain, shortness of breath, vaginal bleeding, leakage of fluid, or dysuria. Size equal to dates. 23 lbsTWG. PTL precautions reviewed. RTC in 2 weeks or sooner if needed. Follow up growth US next visit. Rosario Garcia APRN.CNM documented in this encounter [facility] 12-04-2021 Instructions Nallely Mcknight MA - 12/04/2021 2:33 PM EDT SEQUENTIAL SCREENINGS The [facility] offers sequential screenings for women who are interested in screenings for chromosomal abnormalities and certain defects during a . The sequential screen combines ultrasound and blood tests to determine the risk of chromosomal abnormalities, including Down's Syndrome (Trisomy 21) and Trisomy 18, as well as open neural tube defects including spina bifida. Ultrasound examination is performed between 11 weeks and 13 weeks gestational age. Blood tests are drawn after the ultrasound and again later in the between 15 and 21 weeks gestational age. Please let your physician know if you are interested in this testing. It will require an appointment with our public address technician. This is not an ultrasound performed by a physician in our office during a routine visit. SIGNS AND SYMPTOMS OF LABOR 1. Contractions every 10 minutes or more often 2. Clear, pink, or brownish fluid (water) leaking from vagina 3. Feeling that baby is pushing down, pressure 4. Low, dull backache 5. Cramps that feel like a period 6. Cramps with or without diarrhea If you notice any of the above symptoms, contact our office at [phone] and ask to speak with a nurse. After hours, you can call doctors registry at [phone] OR call [facility] at [phone] and ask to have the doctor chief controller center paged. If you consider this an emergency, dial 9--1 or go to your nearest emergency department. NEED HELP? Are you dealing with a violent or abusive relationship? Are you a victim of rape or sexual assult? Call [facility] ([place]) 24 hour Crisis Hotline: 178.673.7135 or 938-844-2512. MANUAL Your Guide to a Healthy manual is now on-line. Visit [email or web address] ncyGuide to download your free copy documented in this encounter [facility] 11-13-2021 Miscellaneous Notes KJ - No VB/LOF/ctxs. Reports good FM A&P: 28wk labs today Tdap Declines LARC, considering Mirena IUD H/o PTD - continue [place] Depression - continue prozac Reviewed PTL & FM precautions Yobani Darby MD documented in this encounter [facility] 11-13-2021 Niko Alanis Ma - 11/13/2021 10:14 AM EDT SEQUENTIAL SCREENINGS The [facility] offers sequential screenings for women who are interested in screenings for chromosomal abnormalities and certain defects during a . The sequential screen combines ultrasound and blood tests to determine the risk of chromosomal abnormalities, including Down's Syndrome (Trisomy 21) and Trisomy 18, as well as open neural tube defects including spina bifida. Ultrasound examination is performed between 11 weeks and 13 weeks gestational age. Blood tests are drawn after the ultrasound and again later in the between 15 and 21 weeks gestational age. Please let your physician know if you are interested in this testing. It will require an appointment with our public address technician. This is not an ultrasound performed by a physician in our office during a routine visit. SIGNS AND SYMPTOMS OF LABOR 1. Contractions every 10 minutes or more often 2. Clear, pink, or brownish fluid (water) leaking from vagina 3. Feeling that baby is pushing down, pressure 4. Low, dull backache 5. Cramps that feel like a period 6. Cramps with or without diarrhea If you notice any of the above symptoms, contact our office at [phone] and ask to speak with a nurse. After hours, you can call doctors registry at [phone] OR call [facility] at [phone] and ask to have the doctor chief controller center paged. If you consider this an emergency, dial 1-8-8 or go to your nearest emergency department. NEED HELP? Are you dealing with a violent or abusive relationship? Are you a victim of rape or sexual assult? Call [facility] ([place]) 24 hour Crisis Hotline: 508.101.5427 or 771-890-0954. MANUAL Your Guide to a Healthy manual is now on-line. Visit [email or web address] ncyGuide to download your free copy documented in this encounter [facility] 07-19-2021 Note HNO ID: [id number] Author: Boubacar Shultz, DO Service: ? Author Type: Physician Type: Progress Notes Filed: 07/20/2021 10:20 AM Note Text: Patient presents for CVS in the setting of an increased NT. Risks, benefits, and alternatives were reviewed. Informed consent was signed. Kimberly is Rh positive. See US reports for procedure details. Boubacar Shultz DO [facility] 07-04-2020 History of Past i llness Narrative Problem Noted Date Resolved Date Elevated glucose 07/04/2020 08/22/2020 Overview: 07/17/20- 3 hour GTT normal 07/04/20- Elevated 1 hour GCT at 138. Three hour ordered. Rosario Garcia APRN.CNM Anemia complicating , second trimester 07/04/2020 08/22/2020 Overview: 07/04/20- Hgb. 10.4 Started on oral iron supplementation. Will recheck CBC in 1 month. Rosario Garcia APRN.DIPIKA Encounter for supervision of normal first in second trimester 06/06/2020 08/22/2020 Overview: 06/06/20 - It's a boy - XY!! UTI (urinary tract infection) in , ante 02/25/2020 08/22/2020 Overview: 02/25/20 - +UTI, will need recheck. Lauryn Anderson APRN.SAMPLE MOUNTER Nausea and vomiting in 02/21/2020 08/22/2020 Overview: 02/21/2020Patient called in February 06 complaining of nausea and occasional vomiting in . Was given prescription for Phenergan. She states this has helped relieve her symptoms. Dietary considerations discussed . Advised patient to call/come in if she is unable to keep any food or fluids down in a 24-hour period.TKRN Acute pain of left shoulder 09/17/201702/15 Pain in limb 01/22/2010 02/29/2020 documented as of this encounter (statuses as of 11/08/2021) [facility] History of Past illness Narrative* Problem Noted Date Resolved Date Elevated glucose 07/04/2020 08/22/2020 Overview: 07/17/20- 3 hour GTT normal 07/04/20- Elevated 1 hour GCT at 138. Three hour ordered. Rosario Garcia APRN.CNM Anemia complicating , second trimester 07/04/2020 08/22/2020 Overview: 07/04/20- Hgb. 10.4 Started on oral iron supplementation. Will recheck CBC in 1 month. Rosario Garcia APRN.CNM Encounter for supervision of normal first in second trimester 06/06/2020 08/22/2020 Overview: 06/06/20 - It's a boy - XY!! UTI (urinary tract infection) in , ante 02/25/2020 08/22/2020 Overview: 02/25/20 - +UTI, will need recheck. Lauryn Anderson APRN.SAMPLE MOUNTER Nausea and vomiting in 02/21/2020 08/22/2020 Overview: 02/21/2020Patient called in February 06 complaining of nausea and occasional vomiting in . Was given prescription for Phenergan. She states this has helped relieve her symptoms. Dietary considerations discussed . Advised patient to call/come in if she is unable to keep any food or fluids down in a 24-hour period.TKRN Acute pain of left shoulder 09/17/201702/15 Pain in limb 01/22/2010 02/29/2020 documented as of this encounter (statuses as of 11/13/2021) [facility]11-17-2020 History of Past illness Narrative* Problem Noted Date Resolved Date Elevated glucose 07/04/2020 08/22/2020 Overview: 07/17/20- 3 hour GTT normal 07/04/20- Elevated 1 hour GCT at 138. Three hour ordered. Rosario Garcia APRN.CNM Anemia complicating , second trimester 07/04/2020 08/22/2020 Overview: 07/04/20- Hgb. 10.4 Started on oral iron supplementation. Will recheck CBC in 1 month. Rosario Garcia APRN.CNM Encounter for supervision of normal first in second trimester 06/06/2020 08/22/2020 Overview: 06/06/20 - It's a boy - XY!! UTI (urinary tract infection) in , ante 02/25/2020 08/22/2020 Overview: 02/25/20 - +UTI, will need recheck. Lauryn Anderson APRN.SAMPLE MOUNTER Nausea and vomiting in 02/21/2020 08/22/2020 Overview: 02/21/2020Patient called in February 06 complaining of nausea and occasional vomiting in . Was given prescription for Phenergan. She states this has helped relieve her symptoms. Dietary considerations discussed . Advised patient to call/come in if she is unable to keep any food or fluids down in a 24-hour period.TKRN Acute pain of left shoulder 09/17/201702/15 Pain in limb 01/22/2010 02/29/2020 documented as of this encounter (statuses as of 12/05/2021) [facility]11-17-2020 History of Past illness Narrative* Problem Noted Date Resolved Date Elevated glucose 07/04/2020 08/22/2020 Overview: 07/17/20- 3 hour GTT normal 07/04/20- Elevated 1 hour GCT at 138. Three hour ordered. Rosario Garcia APRN.CNM Anemia complicating , second trimester 07/04/2020 08/22/2020 Overview: 07/04/20- Hgb. 10.4 Started on oral iron supplementation. Will recheck CBC in 1 month. Rosario Garcia APRN.CNM Encounter for supervision of normal first in second trimester 06/06/2020 08/22/2020 Overview: 06/06/20 - It's a boy - XY!! UTI (urinary tract infection) in , ante 02/25/2020 08/22/2020 Overview: 02/25/20 - +UTI, will need recheck. Lauryn Anderson, [employer].SAMPLE [employer]TER Nausea and vomiting in 02/21/2020 08/22/2020 Overview: 02/21/2020Patient called in February 06 complaining of nausea and occasional vomiting in . Was given prescription for Phenergan. She states this has helped relieve her symptoms. Dietary considerations discussed . Advised patient to call/come in if she is unable to keep any food or fluids down in a 24-hour period.TKRN Acute pain of left shoulder 09/17/201702/15 Pain in limb 01/22/2010 02/29/2020 documented as of this encounter (statuses as of 12/17/2021) [facility]11-17-2020 History of Past illness Narrative* Problem Noted Date Resolved Date Elevated glucose 07/04/2020 08/22/2020 Overview: 07/17/20- 3 hour GTT normal 07/04/20- Elevated 1 hour GCT at 138. Three hour ordered. Rosario Garcia APRN.CNM Anemia complicating , second trimester 07/04/2020 08/22/2020 Overview: 07/04/20- Hgb. 10.4 Started on oral iron supplementation. Will recheck CBC in 1 month. Rosario Garcia APRN.CNM Encounter for supervision of normal first in second trimester 06/06/2020 08/22/2020 Overview: 06/06/20 - It's a boy - XY!! UTI (urinary tract infection) in , ante 02/25/2020 08/22/2020 Overview: 02/25/20 - +UTI, will need recheck. Lauryn Anderson APRN.SAMPLE M[employer]TER Nausea and vomiting in 02/21/2020 08/22/2020 Overview: 02/21/2020Patient called in February 06 complaining of nausea and occasional vomiting in . Was given prescription for Phenergan. She states this has helped relieve her symptoms. Dietary considerations discussed . Advised patient to call/come in if she is unable to keep any food or fluids down in a 24-hour period.TKRN Acute pain of left shoulder 09/17/201702/15 Pain in limb 01/22/2010 02/29/2020 documented as of this encounter (statuses as of 12/17/2021) [facility]11-17-2020 History of Past illness Narrative* Problem Noted Date Resolved Date Elevated glucose 07/04/2020 08/22/2020 Overview: 07/17/20- 3 hour GTT normal 07/04/20- Elevated 1 hour GCT at 138. Three hour ordered. Rosario Garcia APRN.BETTEM Anemia complicating , second trimester 07/04/2020 08/22/2020 Overview: 07/04/20- Hgb. 10.4 Started on oral iron supplementation. Will recheck CBC in 1 month. Rosario Garcia APRN.DIPIKA Encounter for supervision of normal first in second trimester 06/06/2020 08/22/2020 Overview: 06/06/20 - It's a boy - XY!! UTI (urinary tract infection) in , ante 02/25/2020 08/22/2020 Overview: 02/25/20 - +UTI, will need recheck. Lauryn Anderson APRN.SAMPLE MOUNTER Nausea and vomiting in 02/21/2020 08/22/2020 Overview: 02/21/2020Patient called in February 06 complaining of nausea and occasional vomiting in . Was given prescription for Phenergan. She states this has helped relieve her symptoms. Dietary considerations discussed . Advised patient to call/come in if she is unable to keep any food or fluids down in a 24-hour period.TKRN Acute pain of left shoulder 09/17/201702/15 Pain in limb 01/22/2010 02/29/2020 documented as of this encounter (statuses as of 12/18/2021) [facility]11-17-2020 History of Past illness Narrative* Problem Noted Date Resolved Date Elevated glucose 07/04/2020 08/22/2020 Overview: 07/17/20- 3 hour GTT normal 07/04/20- Elevated 1 hour GCT at 138. Three hour ordered. Rosario Garcia APRN.CNM Anemia complicating , second trimester 07/04/2020 08/22/2020 Overview: 07/04/20- Hgb. 10.4 Started on oral iron supplementation. Will recheck CBC in 1 month. Rosario Garcia APRN.CNM Encounter for supervision of normal first in second trimester 06/06/2020 08/22/2020 Overview: 06/06/20 - It's a boy - XY!! UTI (urinary tract infection) in , ante 02/25/2020 08/22/2020 Overview: 02/25/20 - +UTI, will need recheck. Lauryn Anderson APRN.SAMPLE [employer]TER Nausea and vomiting in 02/21/2020 08/22/2020 Overview: 02/21/2020Patient called in February 06 complaining of nausea and occasional vomiting in . Was given prescription for Phenergan. She states this has helped relieve her symptoms. Dietary considerations discussed . Advised patient to call/come in if she is unable to keep any food or fluids down in a 24-hour period.TKRN Acute pain of left shoulder 09/17/201702/15 Pain in limb 01/22/2010 02/29/2020 documented as of this encounter (statuses as of 12/19/2021) [facility]11-17-2020 History of Past illness Narrative* Problem Noted Date Resolved Date Elevated glucose 07/04/2020 08/22/2020 Overview: 07/17/20- 3 hour GTT normal 07/04/20- Elevated 1 hour GCT at 138. Three hour ordered. Rosario Garcia APRN.CNM Anemia complicating , second trimester 07/04/2020 08/22/2020 Overview: 07/04/20- Hgb. 10.4 Started on oral iron supplementation. Will recheck CBC in 1 month. Rosario Garcia APRN.CNM Encounter for supervision of normal first in second trimester 06/06/2020 08/22/2020 Overview: 06/06/20 - It's a boy - XY!! UTI (urinary tract infection) in , ante 02/25/2020 08/22/2020 Overview: 02/25/20 - +UTI, will need recheck. Lauryn Anderson APRN.SAMPLE MOUNTER Nausea and vomiting in 02/21/2020 08/22/2020 Overview: 02/21/2020Patient called in February 06 complaining of nausea and occasional vomiting in . Was given prescription for Phenergan. She states this has helped relieve her symptoms. Dietary considerations discussed . Advised patient to call/come in if she is unable to keep any food or fluids down in a 24-hour period.TKRN Acute pain of left shoulder 09/17/201702/15 Pain in limb 01/22/2010 02/29/2020 documented as of this encounter (statuses as of 12/25/2021) [facility]-17-[facility] History of Past illness Narrative* Problem Noted Date Resolved Date Elevated glucose 07/04/2020 08/22/2020 Overview: 07/17/20- 3 hour GTT normal 07/04/20- Elevated 1 hour GCT at 138. Three hour ordered. Rosario Garcia APRN.CNM Anemia complicating , second trimester 07/04/2020 08/22/2020 Overview: 07/04/20- Hgb. 10.4 Started on oral iron supplementation. Will recheck CBC in 1 month. Rosario Garcia APRN.CNM Encounter for supervision of normal first in second trimester 06/06/2020 08/22/2020 Overview: 06/06/20 - It's a boy - XY!! UTI (urinary tract infection) in , ante 02/25/2020 08/22/2020 Overview: 02/25/20 - +UTI, will need recheck. Lauryn Anderson APRN.SAMPLE M[employer]TER Nausea and vomiting in 02/21/2020 08/22/2020 Overview: 02/21/2020Patient called in February 06 complaining of nausea and occasional vomiting in . Was given prescription for Phenergan. She states this has helped relieve her symptoms. Dietary considerations discussed . Advised patient to call/come in if she is unable to keep any food or fluids down in a 24-hour period.TKRN Acute pain of left shoulder 09/17/201702/15 Pain in limb 01/22/2010 02/29/2020 documented as of this encounter (statuses as of 12/27/2021) [facility]-17-[facility] History of Past illness Narrative* Problem Noted Date Resolved Date Elevated glucose 07/04/2020 08/22/2020 Overview: 07/17/20- 3 hour GTT normal 07/04/20- Elevated 1 hour GCT at 138. Three hour ordered. Rosario Garcia APRN.CNM Anemia complicating , second trimester 07/04/2020 08/22/2020 Overview: 07/04/20- Hgb. 10.4 Started on oral iron supplementation. Will recheck CBC in 1 month. Rosario Garcia APRN.CNM Encounter for supervision of normal first in second trimester 06/06/2020 08/22/2020 Overview: 06/06/20 - It's a boy - XY!! UTI (urinary tract infection) in , ante 02/25/2020 08/22/2020 Overview: 02/25/20 - +UTI, will need recheck. Lauryn Anderson APRN.SAMPLE [employer]TER Nausea and vomiting in 02/21/2020 08/22/2020 Overview: 02/21/2020Patient called in February 06 complaining of nausea and occasional vomiting in . Was given prescription for Phenergan. She states this has helped relieve her symptoms. Dietary considerations discussed . Advised patient to call/come in if she is unable to keep any food or fluids down in a 24-hour period.TKRN Acute pain of left shoulder 09/17/201702/15 Pain in limb 01/22/2010 02/29/2020 documented as of this encounter (statuses as of 12/27/2021) [facility]-17[facility] History of Past illness Narrative* Problem Noted Date Resolved Date Elevated glucose 07/04/2020 08/22/2020 Overview: 07/17/20- 3 hour GTT normal 07/04/20- Elevated 1 hour GCT at 138. Three hour ordered. Rosario Garcia APRN.CNM Anemia complicating , second trimester 07/04/2020 08/22/2020 Overview: 07/04/20- Hgb. 10.4 Started on oral iron supplementation. Will recheck CBC in 1 month. Rosario Garcia APRN.CNM Encounter for supervision of normal first in second trimester 06/06/2020 08/22/2020 Overview: 06/06/20 - It's a boy - XY!! UTI (urinary tract infection) in , ante 02/25/2020 08/22/2020 Overview: 02/25/20 - +UTI, will need recheck. Lauryn Anderson APRN.SAMPLE [employer]TER Nausea and vomiting in 02/21/2020 08/22/2020 Overview: 02/21/2020Patient called in February 06 complaining of nausea and occasional vomiting in . Was given prescription for Phenergan. She states this has helped relieve her symptoms. Dietary considerations discussed . Advised patient to call/come in if she is unable to keep any food or fluids down in a 24-hour period.TKRN Acute pain of left shoulder 09/17/201702/15 Pain in limb 01/22/2010 02/29/2020 documented as of this encounter (statuses as of 12/31/2021) [facility] History of Past illness Narrative* Problem Noted Date Resolved Date Elevated glucose 07/04/2020 08/22/2020 Overview: 07/17/20- 3 hour GTT normal 07/04/20- Elevated 1 hour GCT at 138. Three hour ordered. Rosario Garcia APRN.CNM Anemia complicating , second trimester 07/04/2020 08/22/2020 Overview: 07/04/20- Hgb. 10.4 Started on oral iron supplementation. Will recheck CBC in 1 month. Rosario Garcia APRN.CNM Encounter for supervision of normal first in second trimester 06/06/2020 08/22/2020 Overview: 06/06/20 - It's a boy - XY!! UTI (urinary tract infection) in , ante 02/25/2020 08/22/2020 Overview: 02/25/20 - +UTI, will need recheck. Lauryn Anderson APRN.SAMPLE [employer]TER Nausea and vomiting in 02/21/2020 08/22/2020 Overview: 02/21/2020Patient called in February 06 complaining of nausea and occasional vomiting in . Was given prescription for Phenergan. She states this has helped relieve her symptoms. Dietary considerations discussed . Advised patient to call/come in if she is unable to keep any food or fluids down in a 24-hour period.TKRN Acute pain of left shoulder 09/17/201702/15 Pain in limb 01/22/2010 02/29/2020 documented as of this encounter (statuses as of 12/31/2021) [facility] History of Past illness Narrative* Problem Noted Date Resolved Date Elevated glucose 07/04/2020 08/22/2020 Overview: 07/17/20- 3 hour GTT normal 07/04/20- Elevated 1 hour GCT at 138. Three hour ordered. Rosario Garcia APRN.CNM Anemia complicating , second trimester 07/04/2020 08/22/2020 Overview: 07/04/20- Hgb. 10.4 Started on oral iron supplementation. Will recheck CBC in 1 month. Rosario Garcia APRN.CNM Encounter for supervision of normal first in second trimester 06/06/2020 08/22/2020 Overview: 06/06/20 - It's a boy - XY!! UTI (urinary tract infection) in , ante 02/25/2020 08/22/2020 Overview: 02/25/20 - +UTI, will need recheck. Lauryn Anderson APRN.SAMPLE [employer]TER Nausea and vomiting in 02/21/2020 08/22/2020 Overview: 02/21/2020Patient called in February 06 complaining of nausea and occasional vomiting in . Was given prescription for Phenergan. She states this has helped relieve her symptoms. Dietary considerations discussed . Advised patient to call/come in if she is unable to keep any food or fluids down in a 24-hour period.TKRN Acute pain of left shoulder 09/17/201702/15 Pain in limb 01/22/2010 02/29/2020 documented as of this encounter (statuses as of 01/04/2022) [facility] History of Past illness Narrative* Problem Noted Date Resolved Date Elevated glucose 07/04/2020 08/22/2020 Overview: 07/17/20- 3 hour GTT normal 07/04/20- Elevated 1 hour GCT at 138. Three hour ordered. Rosario Garcia APRN.CNM Anemia complicating , second trimester 07/04/2020 08/22/2020 Overview: 07/04/20- Hgb. 10.4 Started on oral iron supplementation. Will recheck CBC in 1 month. Rosario Garcia APRN.CNM Encounter for supervision of normal first in second trimester 06/06/2020 08/22/2020 Overview: 06/06/20 - It's a boy - XY!! UTI (urinary tract infection) in , ante 02/25/2020 08/22/2020 Overview: 02/25/20 - +UTI, will need recheck. Lauryn Anderson APRN.SAMPLE [employer]TER Nausea and vomiting in 02/21/2020 08/22/2020 Overview: 02/21/2020Patient called in February 06 complaining of nausea and occasional vomiting in . Was given prescription for Phenergan. She states this has helped relieve her symptoms. Dietary considerations discussed . Advised patient to call/come in if she is unable to keep any food or fluids down in a 24-hour period.TKRN Acute pain of left shoulder 09/17/201702/15 Pain in limb 01/22/2010 02/29/2020 documented as of this encounter (statuses as of 01/07/2022) [facility] History of Past illness Narrative* Problem Noted Date Resolved Date Elevated glucose 07/04/2020 08/22/2020 Overview: 07/17/20- 3 hour GTT normal 07/04/20- Elevated 1 hour GCT at 138. Three hour ordered. Rosario Garcia APRN.CNM Anemia complicating , second trimester 07/04/2020 08/22/2020 Overview: 07/04/20- Hgb. 10.4 Started on oral iron supplementation. Will recheck CBC in 1 month. Rosario Garcia APRN.CNM Encounter for supervision of normal first in second trimester 06/06/2020 08/22/2020 Overview: 06/06/20 - It's a boy - XY!! UTI (urinary tract infection) in , ante 02/25/2020 08/22/2020 Overview: 02/25/20 - +UTI, will need recheck. Lauryn Anderson APRN.SAMPLE [employer]TER Nausea and vomiting in 02/21/2020 08/22/2020 Overview: 02/21/2020Patient called in February 06 complaining of nausea and occasional vomiting in . Was given prescription for Phenergan. She states this has helped relieve her symptoms. Dietary considerations discussed . Advised patient to call/come in if she is unable to keep any food or fluids down in a 24-hour period.TKRN Acute pain of left shoulder 09/17/201702/15 Pain in limb 01/22/2010 02/29/2020 documented as of this encounter (statuses as of 01/15/2022) [facility] History of Past illness Narrative* Problem Noted Date Resolved Date Elevated glucose 07/04/2020 08/22/2020 Overview: 07/17/20- 3 hour GTT normal 07/04/20- Elevated 1 hour GCT at 138. Three hour ordered. Rosario Garcia APRN.CNM Anemia complicating , second trimester 07/04/2020 08/22/2020 Overview: 07/04/20- Hgb. 10.4 Started on oral iron supplementation. Will recheck CBC in 1 month. Rosario Garcia APRN.CNM Encounter for supervision of normal first in second trimester 06/06/2020 08/22/2020 Overview: 06/06/20 - It's a boy - XY!! UTI (urinary tract infection) in , ante 02/25/2020 08/22/2020 Overview: 02/25/20 - +UTI, will need recheck. Lauryn Anderson APRN.SAMPLE [employer]TER Nausea and vomiting in 02/21/2020 08/22/2020 Overview: 02/21/2020Patient called in February 06 complaining of nausea and occasional vomiting in . Was given prescription for Phenergan. She states this has helped relieve her symptoms. Dietary considerations discussed . Advised patient to call/come in if she is unable to keep any food or fluids down in a 24-hour period.TKRN Acute pain of left shoulder 09/17/201702/15 Pain in limb 01/22/2010 02/29/2020 documented as of this encounter (statuses as of 01/18/2022) [facility] History of Past illness Narrative* Problem Noted Date Resolved Date Elevated glucose 07/04/2020 08/22/2020 Overview: 07/17/20- 3 hour GTT normal 07/04/20- Elevated 1 hour GCT at 138. Three hour ordered. Rosario Garcia APRN.BETTEM Anemia complicating , second trimester 07/04/2020 08/22/2020 Overview: 07/04/20- Hgb. 10.4 Started on oral iron supplementation. Will recheck CBC in 1 month. Rosario Garcia APRN.DIPIKA Encounter for supervision of normal first in second trimester 06/06/2020 08/22/2020 Overview: 06/06/20 - It's a boy - XY!! UTI (urinary tract infection) in , ante 02/25/2020 08/22/2020 Overview: 02/25/20 - +UTI, will need recheck. Lauryn Anderson APRN.SAMPLE [employer]TER Nausea and vomiting in 02/21/2020 08/22/2020 Overview: 02/21/2020Patient called in February 06 complaining of nausea and occasional vomiting in . Was given prescription for Phenergan. She states this has helped relieve her symptoms. Dietary considerations discussed . Advised patient to call/come in if she is unable to keep any food or fluids down in a 24-hour period.TKRN Acute pain of left shoulder 09/17/201702/15 Pain in limb 01/22/2010 02/29/2020 documented as of this encounter (statuses as of 02/15/2022) [facility] History of Past illness Narrative* Problem Noted Date Resolved Date Elevated glucose 07/04/2020 08/22/2020 Overview: 07/17/20- 3 hour GTT normal 07/04/20- Elevated 1 hour GCT at 138. Three hour ordered. Rosario Garcia APRN.CNM Anemia complicating , second trimester 07/04/2020 08/22/2020 Overview: 07/04/20- Hgb. 10.4 Started on oral iron supplementation. Will recheck CBC in 1 month. Rosario Garcia APRN.CNM Encounter for supervision of normal first in second trimester 06/06/2020 08/22/2020 Overview: 06/06/20 - It's a boy - XY!! UTI (urinary tract infection) in , ante 02/25/2020 08/22/2020 Overview: 02/25/20 - +UTI, will need recheck. Lauryn Anderson APRN.SAMPLE M[employer]TER Nausea and vomiting in 02/21/2020 08/22/2020 Overview: 02/21/2020Patient called in February 06 complaining of nausea and occasional vomiting in . Was given prescription for Phenergan. She states this has helped relieve her symptoms. Dietary considerations discussed . Advised patient to call/come in if she is unable to keep any food or fluids down in a 24-hour period.TKRN Acute pain of left shoulder 09/17/201702/15 Pain in limb 01/22/2010 02/29/2020 documented as of this encounter (statuses as of 02/19/2022) [facility] History of Past illness Narrative* Problem Noted Date Resolved Date Elevated glucose 07/04/2020 08/22/2020 Overview: 07/17/20- 3 hour GTT normal 07/04/20- Elevated 1 hour GCT at 138. Three hour ordered. Rosario Garcia APRN.CNM Anemia complicating , second trimester 07/04/2020 08/22/2020 Overview: 07/04/20- Hgb. 10.4 Started on oral iron supplementation. Will recheck CBC in 1 month. Rosario Garcia APRN.CNM Encounter for supervision of normal first in second trimester 06/06/2020 08/22/2020 Overview: 06/06/20 - It's a boy - XY!! UTI (urinary tract infection) in , ante 02/25/2020 08/22/2020 Overview: 02/25/20 - +UTI, will need recheck. Lauryn Anderson APRN.SAMPLE M[employer]TER Nausea and vomiting in 02/21/2020 08/22/2020 Overview: 02/21/2020Patient called in February 06 complaining of nausea and occasional vomiting in . Was given prescription for Phenergan. She states this has helped relieve her symptoms. Dietary considerations discussed . Advised patient to call/come in if she is unable to keep any food or fluids down in a 24-hour period.TKRN Acute pain of left shoulder 09/17/201702/15 Pain in limb 01/22/2010 02/29/2020 documented as of this encounter (statuses as of 02/21/2022) [facility] History of Past illness Narrative* Problem Noted Date Resolved Date Elevated glucose 07/04/2020 08/22/2020 Overview: 07/17/20- 3 hour GTT normal 07/04/20- Elevated 1 hour GCT at 138. Three hour ordered. Rosario Garcia APRN.CNM Anemia complicating , second trimester 07/04/2020 08/22/2020 Overview: 07/04/20- Hgb. 10.4 Started on oral iron supplementation. Will recheck CBC in 1 month. Rosario Garcia APRN.CNM Encounter for supervision of normal first in second trimester 06/06/2020 08/22/2020 Overview: 06/06/20 - It's a boy - XY!! UTI (urinary tract infection) in , ante 02/25/2020 08/22/2020 Overview: 02/25/20 - +UTI, will need recheck. Lauryn Anderson APRN.SAMPLE [employer]TER Nausea and vomiting in 02/21/2020 08/22/2020 Overview: 02/21/2020Patient called in February 06 complaining of nausea and occasional vomiting in . Was given prescription for Phenergan. She states this has helped relieve her symptoms. Dietary considerations discussed . Advised patient to call/come in if she is unable to keep any food or fluids down in a 24-hour period.TKRN Acute pain of left shoulder 09/17/201702/15 Pain in limb 01/22/2010 02/29/2020 documented as of this encounter (statuses as of 03/01/2022) [facility] History of Past illness Narrative* Problem Noted Date Resolved Date Elevated glucose 07/04/2020 08/22/2020 Overview: 07/17/20- 3 hour GTT normal 07/04/20- Elevated 1 hour GCT at 138. Three hour ordered. Rosario Garcia APRN.CNM Anemia complicating , second trimester 07/04/2020 08/22/2020 Overview: 07/04/20- Hgb. 10.4 Started on oral iron supplementation. Will recheck CBC in 1 month. Rosario Garcia APRN.DIPIKA Encounter for supervision of normal first in second trimester 06/06/2020 08/22/2020 Overview: 06/06/20 - It's a boy - XY!! UTI (urinary tract infection) in , ante 02/25/2020 08/22/2020 Overview: 02/25/20 - +UTI, will need recheck. Lauryn Anderson APRN.SAMPLE [employer]TER Nausea and vomiting in 02/21/2020 08/22/2020 Overview: 02/21/2020Patient called in February 06 complaining of nausea and occasional vomiting in . Was given prescription for Phenergan. She states this has helped relieve her symptoms. Dietary considerations discussed . Advised patient to call/come in if she is unable to keep any food or fluids down in a 24-hour period.TKRN Acute pain of left shoulder 09/17/201702/15 Pain in limb 01/22/2010 02/29/2020 documented as of this encounter (statuses as of 03/15/2022) [facility] History of Past illness Narrative* Problem Noted Date Resolved Date Elevated glucose 07/04/2020 08/22/2020 Overview: 07/17/20- 3 hour GTT normal 07/04/20- Elevated 1 hour GCT at 138. Three hour ordered. Rosario Garcia APRN.CNM Anemia complicating , second trimester 07/04/2020 08/22/2020 Overview: 07/04/20- Hgb. 10.4 Started on oral iron supplementation. Will recheck CBC in 1 month. Rosario Garcia APRN.DIPIKA Encounter for supervision of normal first in second trimester 06/06/2020 08/22/2020 Overview: 06/06/20 - It's a boy - XY!! UTI (urinary tract infection) in , ante 02/25/2020 08/22/2020 Overview: 02/25/20 - +UTI, will need recheck. Lauryn Anderson APRN.SAMPLE MOUNTER Nausea and vomiting in 02/21/2020 08/22/2020 Overview: 02/21/2020Patient called in February 06 complaining of nausea and occasional vomiting in . Was given prescription for Phenergan. She states this has helped relieve her symptoms. Dietary considerations discussed . Advised patient to call/come in if she is unable to keep any food or fluids down in a 24-hour period.TKRN Acute pain of left shoulder 09/17/201702/15 Pain in limb 01/22/2010 02/29/2020 documented as of this encounter (statuses as of 03/22/2022) [facility]11-17-2020 History of Past illness Narrative* Problem Noted Date Resolved Date Elevated glucose 07/04/2020 08/22/2020 Overview: 07/17/20- 3 hour GTT normal 07/04/20- Elevated 1 hour GCT at 138. Three hour ordered. Rosario Garcia APRN.DIPIKA Anemia complicating , second trimester 07/04/2020 08/22/2020 Overview: 07/04/20- Hgb. 10.4 Started on oral iron supplementation. Will recheck CBC in 1 month. Rosario Garcia APRN.DIPIKA Encounter for supervision of normal first in second trimester 06/06/2020 08/22/2020 Overview: 06/06/20 - It's a boy - XY!! UTI (urinary tract infection) in , ante 02/25/2020 08/22/2020 Overview: 02/25/20 - +UTI, will need recheck. Lauryn Anderson APRN.SAMPLE MOUNTER Nausea and vomiting in 02/21/2020 08/22/2020 Overview: 02/21/2020Patient called in February 06 complaining of nausea and occasional vomiting in . Was given prescription for Phenergan. She states this has helped relieve her symptoms. Dietary considerations discussed . Advised patient to call/come in if she is unable to keep any food or fluids down in a 24-hour period.TKRN Acute pain of left shoulder 09/17/201702/15 Pain in limb 01/22/2010 02/29/2020 documented as of this encounter (statuses as of 05/16/2022) [facility]11-17-2020 History of Past illness Narrative* Problem Noted Date Resolved Date Elevated glucose 07/04/2020 08/22/2020 Overview: 07/17/20- 3 hour GTT normal 07/04/20- Elevated 1 hour GCT at 138. Three hour ordered. Rosario Garcia APRN.CNM Anemia complicating , second trimester 07/04/2020 08/22/2020 Overview: 07/04/20- Hgb. 10.4 Started on oral iron supplementation. Will recheck CBC in 1 month. Rosario Garcia APRN.CNM Encounter for supervision of normal first in second trimester 06/06/2020 08/22/2020 Overview: 06/06/20 - It's a boy - XY!! UTI (urinary tract infection) in , ante 02/25/2020 08/22/2020 Overview: 02/25/20 - +UTI, will need recheck. Lauryn Anderson APRN.SAMPLE MOUNTER Nausea and vomiting in 02/21/2020 08/22/2020 Overview: 02/21/2020Patient called in February 06 complaining of nausea and occasional vomiting in . Was given prescription for Phenergan. She states this has helped relieve her symptoms. Dietary considerations discussed . Advised patient to call/come in if she is unable to keep any food or fluids down in a 24-hour period.TKRN Acute pain of left shoulder 09/17/201702/15 Pain in limb 01/22/2010 02/29/2020 documented as of this encounter (statuses as of 08/07/2022) [facility]-17[facility] History of Past illness Narrative* Problem Noted Date Resolved Date Elevated glucose 07/04/2020 08/22/2020 Overview: 07/17/20- 3 hour GTT normal 07/04/20- Elevated 1 hour GCT at 138. Three hour ordered. Rosario Garcia APRN.CNM Anemia complicating , second trimester 07/04/2020 08/22/2020 Overview: 07/04/20- Hgb. 10.4 Started on oral iron supplementation. Will recheck CBC in 1 month. Rosario Garcia APRN.CNM Encounter for supervision of normal first in second trimester 06/06/2020 08/22/2020 Overview: 06/06/20 - It's a boy - XY!! UTI (urinary tract infection) in , ante 02/25/2020 08/22/2020 Overview: 02/25/20 - +UTI, will need recheck. Lauryn Anderson APRN.SAMPLE MOUNTER Nausea and vomiting in 02/21/2020 08/22/2020 Overview: 02/21/2020Patient called in February 06 complaining of nausea and occasional vomiting in . Was given prescription for Phenergan. She states this has helped relieve her symptoms. Dietary considerations discussed . Advised patient to call/come in if she is unable to keep any food or fluids down in a 24-hour period.TKRN Acute pain of left shoulder 09/17/201702/15 Pain in limb 01/22/2010 02/29/2020 documented as of this encounter (statuses as of 08/22/2022) [facility]17[facility] History of Past illness Narrative* Problem Noted Date Resolved Date Elevated glucose 07/04/2020 08/22/2020 Overview: 07/17/20- 3 hour GTT normal 07/04/20- Elevated 1 hour GCT at 138. Three hour ordered. Rosario Garcia APRN.CNM Anemia complicating , second trimester 07/04/2020 08/22/2020 Overview: 07/04/20- Hgb. 10.4 Started on oral iron supplementation. Will recheck CBC in 1 month. Rosario Garcia APRN.CNM Encounter for supervision of normal first in second trimester 06/06/2020 08/22/2020 Overview: 06/06/20 - It's a boy - XY!! UTI (urinary tract infection) in , ante 02/25/2020 08/22/2020 Overview: 02/25/20 - +UTI, will need recheck. Lauryn Anderson APRN.SAMPLE MOUNTER Nausea and vomiting in 02/21/2020 08/22/2020 Overview: 02/21/2020Patient called in February 06 complaining of nausea and occasional vomiting in . Was given prescription for Phenergan. She states this has helped relieve her symptoms. Dietary considerations discussed . Advised patient to call/come in if she is unable to keep any food or fluids down in a 24-hour period.TKRN Acute pain of left shoulder 09/17/201702/15 Pain in limb 01/22/2010 02/29/2020 documented as of this encounter (statuses as of 08/28/2022) [facility]-17-2020 History of Past illness Narrative* Problem Noted Date Resolved Date Elevated glucose 07/04/2020 08/22/2020 Overview: 07/17/20- 3 hour GTT normal 07/04/20- Elevated 1 hour GCT at 138. Three hour ordered. Rosario Garcia APRN.CNM Anemia complicating , second trimester 07/04/2020 08/22/2020 Overview: 07/04/20- Hgb. 10.4 Started on oral iron supplementation. Will recheck CBC in 1 month. Rosario Garcia APRN.CNM Encounter for supervision of normal first in second trimester 06/06/2020 08/22/2020 Overview: 06/06/20 - It's a boy - XY!! UTI (urinary tract infection) in , ante 02/25/2020 08/22/2020 Overview: 02/25/20 - +UTI, will need recheck. Lauryn Anderson APRN.SAMPLE MOUNTER Nausea and vomiting in 02/21/2020 08/22/2020 Overview: 02/21/2020Patient called in February 06 complaining of nausea and occasional vomiting in . Was given prescription for Phenergan. She states this has helped relieve her symptoms. Dietary considerations discussed . Advised patient to call/come in if she is unable to keep any food or fluids down in a 24-hour period.TKRN Acute pain of left shoulder 09/17/201702/15 Pain in limb 01/22/2010 02/29/2020 documented as of this encounter (statuses as of 09/02/2022) [facility] History of Past illness Narrative* Problem Noted Date Resolved Date Elevated glucose 07/04/2020 08/22/2020 Overview: 07/17/20- 3 hour GTT normal 07/04/20- Elevated 1 hour GCT at 138. Three hour ordered. Rosario Garcia APRN.CNM Anemia complicating , second trimester 07/04/2020 08/22/2020 Overview: 07/04/20- Hgb. 10.4 Started on oral iron supplementation. Will recheck CBC in 1 month. Rosario Garcia APRN.CNM Encounter for supervision of normal first in second trimester 06/06/2020 08/22/2020 Overview: 06/06/20 - It's a boy - XY!! UTI (urinary tract infection) in , ante 02/25/2020 08/22/2020 Overview: 02/25/20 - +UTI, will need recheck. Lauryn Anderson APRN.SAMPLE MOUNTER Nausea and vomiting in 02/21/2020 08/22/2020 Overview: 02/21/2020Patient called in February 06 complaining of nausea and occasional vomiting in . Was given prescription for Phenergan. She states this has helped relieve her symptoms. Dietary considerations discussed . Advised patient to call/come in if she is unable to keep any food or fluids down in a 24-hour period.TKRN Acute pain of left shoulder 09/17/201702/15 Pain in limb 01/22/2010 02/29/2020 documented as of this encounter (statuses as of 09/02/2022) [facility]-17-[facility] History of Past illness Narrative* Problem Noted Date Resolved Date Elevated glucose 07/04/2020 08/22/2020 Overview: 07/17/20- 3 hour GTT normal 07/04/20- Elevated 1 hour GCT at 138. Three hour ordered. Rosario Garcia APRN.CNM Anemia complicating , second trimester 07/04/2020 08/22/2020 Overview: 07/04/20- Hgb. 10.4 Started on oral iron supplementation. Will recheck CBC in 1 month. Rosario Garcia APRN.CNM Encounter for supervision of normal first in second trimester 06/06/2020 08/22/2020 Overview: 06/06/20 - It's a boy - XY!! UTI (urinary tract infection) in , ante 02/25/2020 08/22/2020 Overview: 02/25/20 - +UTI, will need recheck. Lauryn Anderson APRN.SAMPLE MOUNTER Nausea and vomiting in 02/21/2020 08/22/2020 Overview: 02/21/2020Patient called in February 06 complaining of nausea and occasional vomiting in . Was given prescription for Phenergan. She states this has helped relieve her symptoms. Dietary considerations discussed . Advised patient to call/come in if she is unable to keep any food or fluids down in a 24-hour period.TKRN Acute pain of left shoulder 09/17/201702/15 Pain in limb 01/22/2010 02/29/2020 documented as of this encounter (statuses as of 10/01/2022) [facility]-17-[facility] History of Past illness Narrative* Problem Noted Date Resolved Date Elevated glucose 07/04/2020 08/22/2020 Overview: 07/17/20- 3 hour GTT normal 07/04/20- Elevated 1 hour GCT at 138. Three hour ordered. Rosario Garcia APRN.CNM Anemia complicating , second trimester 07/04/2020 08/22/2020 Overview: 07/04/20- Hgb. 10.4 Started on oral iron supplementation. Will recheck CBC in 1 month. Rosario Garcia APRN.CNM Encounter for supervision of normal first in second trimester 06/06/2020 08/22/2020 Overview: 06/06/20 - It's a boy - XY!! UTI (urinary tract infection) in , ante 02/25/2020 08/22/2020 Overview: 02/25/20 - +UTI, will need recheck. Lauryn Anderson APRN.SAMPLE MOUNTER Nausea and vomiting in 02/21/2020 08/22/2020 Overview: 02/21/2020Patient called in February 06 complaining of nausea and occasional vomiting in . Was given prescription for Phenergan. She states this has helped relieve her symptoms. Dietary considerations discussed . Advised patient to call/come in if she is unable to keep any food or fluids down in a 24-hour period.TKRN Acute pain of left shoulder 09/17/201702/15 Pain in limb 01/22/2010 02/29/2020 documented as of this encounter (statuses as of 11/11/2022) [facility] History of Past illness Narrative* Problem Noted Date Diagnosed Date Resolved Date Elevated glucose 07/04/2020 08/22/2020 Overview: 07/17/20- 3 hour GTT normal 07/04/20- Elevated 1 hour GCT at 138. Three hour ordered. Rosario Garcia APRN.CNM Anemia complicating pregnanc y, second trimester 07/04/2020 08/22/2020 Overview: 07/04/20- Hgb. 10.4 Started on oral iron supplementation. Will recheck CBC in 1 month. Rosario Garcia APRN.CNM Encounter for supervision of normal first in second trimester 06/06/2020 08/22/2020 Overview: 06/06/20 - It's a boy - XY!! UTI (urinary tract infection ) in , antepartum 02/25/2020 08/22/2020 Overview: 02/25/20 - +UTI, will need recheck. Lauryn Anderson APRN.SAMPLE MOUNTER Nausea and vomiting in 02/21/2020 08/22/2020 Overview: 02/21/2020Patient called in February 06 complaining of nausea and occasional vomiting in . Was given prescription for Phenergan. She states this has helped relieve her symptoms. Dietary considerations discussed . Advised patient to call/come in if she is unable to keep any food or fluids down in a 24-hour period.TKRN Acute pain of left shoulder 09/17/2017 02/29/2020 Pain in limb 01/22/2010 02/29/2020 documented as of this encounter (statuses as of 04/18/2023) [facility]-17[facility] History of Past illness Narrative* Problem Noted Date Diagnosed Date Resolved Date Elevated glucose 07/04/2020 08/22/2020 Overview: 07/17/20- 3 hour GTT normal 07/04/20- Elevated 1 hour GCT at 138. Three hour ordered. Rosario Garcia APRN.CNM Anemia complicating pregnanc y, second trimester 07/04/2020 08/22/2020 Overview: 07/04/20- Hgb. 10.4 Started on oral iron supplementation. Will recheck CBC in 1 month. Rosario Garcia APRN.DIPIKA Encounter for supervision of normal first in second trimester 06/06/2020 08/22/2020 Overview: 06/06/20 - It's a boy - XY!! UTI (urinary tract infection ) in , antepartum 02/25/2020 08/22/2020 Overview: 02/25/20 - +UTI, will need recheck. Lauryn Anderson APRN.SAMPLE MOUNTER Nausea and vomiting in 02/21/2020 08/22/2020 Overview: 02/21/2020Patient called in February 06 complaining of nausea and occasional vomiting in . Was given prescription for Phenergan. She states this has helped relieve her symptoms. Dietary considerations discussed . Advised patient to call/come in if she is unable to keep any food or fluids down in a 24-hour period.TKRN Acute pain of left shoulder 09/17/2017 02/29/2020 Pain in limb 01/22/2010 02/29/2020 documented as of this encounter (statuses as of 04/30/2023) [facility]17[facility] History of Past illness Narrative* Problem Noted Date Diagnosed Date Resolved Date Elevated glucose 07/04/2020 08/22/2020 Overview: 07/17/20- 3 hour GTT normal 07/04/20- Elevated 1 hour GCT at 138. Three hour ordered. Rosario Garcia APRN.BETTEM Anemia complicating pregnanc y, second trimester 07/04/2020 08/22/2020 Overview: 07/04/20- Hgb. 10.4 Started on oral iron supplementation. Will recheck CBC in 1 month. Rosario Garcia APRN.DIPIKA Encounter for supervision of normal first in second trimester 06/06/2020 08/22/2020 Overview: 06/06/20 - It's a boy - XY!! UTI (urinary tract infection ) in , antepartum 02/25/2020 08/22/2020 Overview: 02/25/20 - +UTI, will need recheck. Lauryn Anderson APRN.SAMPLE MOUNTER Nausea and vomiting in 02/21/2020 08/22/2020 Overview: 02/21/2020Patient called in February 06 complaining of nausea and occasional vomiting in . Was given prescription for Phenergan. She states this has helped relieve her symptoms. Dietary considerations discussed . Advised patient to call/come in if she is unable to keep any food or fluids down in a 24-hour period.TKRN Acute pain of left shoulder 09/17/2017 02/29/2020 Pain in limb 01/22/2010 02/29/2020 documented as of this encounter (statuses as of 06/03/2023) [facility] History of Past illness Narrative* Problem Noted Date Diagnosed Date Resolved Date Elevated glucose 07/04/2020 08/22/2020 Overview: 07/17/20- 3 hour GTT normal 07/04/20- Elevated 1 hour GCT at 138. Three hour ordered. Rosario Garcia APRN.DIPIKA Anemia complicating pregnanc y, second trimester 07/04/2020 08/22/2020 Overview: 07/04/20- Hgb. 10.4 Started on oral iron supplementation. Will recheck CBC in 1 month. Rosario Garcia APRN.DIPIKA Encounter for supervision of normal first in second trimester 06/06/2020 08/22/2020 Overview: 06/06/20 - It's a boy - XY!! UTI (urinary tract infection ) in , antepartum 02/25/2020 08/22/2020 Overview: 02/25/20 - +UTI, will need recheck. Lauryn Anderson APRN.SAMPLE MOUNTER Nausea and vomiting in 02/21/2020 08/22/2020 Overview: 02/21/2020Patient called in February 06 complaining of nausea and occasional vomiting in . Was given prescription for Phenergan. She states this has helped relieve her symptoms. Dietary considerations discussed . Advised patient to call/come in if she is unable to keep any food or fluids down in a 24-hour period.TKRN Acute pain of left shoulder 09/17/2017 02/29/2020 Pain in limb 01/22/2010 02/29/2020 documented as of this encounter (statuses as of 06/26/2023) [facility] History of Past illness Narrative* Problem Noted Date Diagnosed Date Resolved Date Elevated glucose 07/04/2020 08/22/2020 Overview: 07/17/20- 3 hour GTT normal 07/04/20- Elevated 1 hour GCT at 138. Three hour ordered. Rosario Garcai APRN.DIPIKA Anemia complicating pregnanc y, second trimester 07/04/2020 08/22/2020 Overview: 07/04/20- Hgb. 10.4 Started on oral iron supplementation. Will recheck CBC in 1 month. Rosario Garcia APRN.CNM Encounter for supervision of normal first in second trimester 06/06/2020 08/22/2020 Overview: 06/06/20 - It's a boy - XY!! UTI (urinary tract infection ) in , antepartum 02/25/2020 08/22/2020 Overview: 02/25/20 - +UTI, will need recheck. Lauryn Anderson APRN.SAMPLE MOUNTER Nausea and vomiting in 02/21/2020 08/22/2020 Overview: 02/21/2020Patient called in February 06 complaining of nausea and occasional vomiting in . Was given prescription for Phenergan. She states this has helped relieve her symptoms. Dietary considerations discussed . Advised patient to call/come in if she is unable to keep any food or fluids down in a 24-hour period.TKRN Acute pain of left shoulder 09/17/2017 02/29/2020 Pain in limb 01/22/2010 02/29/2020 documented as of this encounter (statuses as of 06/27/2023) [facility] History of Past illness Narrative* Problem Noted Date Diagnosed Date Resolved Date Elevated glucose 07/04/2020 08/22/2020 Overview: 07/17/20- 3 hour GTT normal 07/04/20- Elevated 1 hour GCT at 138. Three hour ordered. Rosario Garcia APRN.CNM Anemia complicating pregnanc y, second trimester 07/04/2020 08/22/2020 Overview: 07/04/20- Hgb. 10.4 Started on oral iron supplementation. Will recheck CBC in 1 month. Rosario Garcia APRN.CNM Encounter for supervision of normal first in second trimester 06/06/2020 08/22/2020 Overview: 06/06/20 - It's a boy - XY!! UTI (urinary tract infection ) in , antepartum 02/25/2020 08/22/2020 Overview: 02/25/20 - +UTI, will need recheck. Lauryn Anderson APRN.EMRE Nausea and vomiting in 02/21/2020 08/22/2020 Overview: 02/21/2020Patient called in February 06 complaining of nausea and occasional vomiting in . Was given prescription for Phenergan. She states this has helped relieve her symptoms. Dietary considerations discussed . Advised patient to call/come in if she is unable to keep any food or fluids down in a 24-hour period.TKRN Acute pain of left shoulder 09/17/2017 02/29/2020 Pain in limb 01/22/2010 02/29/2020 documented as of this encounter (statuses as of 09/25/2023) [facility] History of Past illness Narrative* Problem Noted Date Diagnosed Date Resolved Date Elevated glucose 07/04/2020 08/22/2020 Overview: 07/17/20- 3 hour GTT normal 07/04/20- Elevated 1 hour GCT at 138. Three hour ordered. Rosario Garcia APRN.CNM Anemia complicating pregnanc y, second trimester 07/04/2020 08/22/2020 Overview: 07/04/20- Hgb. 10.4 Started on oral iron supplementation. Will recheck CBC in 1 month. Rosario Garcia APRN.CNM Encounter for supervision of normal first in second trimester 06/06/2020 08/22/2020 Overview: 06/06/20 - It's a boy - XY!! UTI (urinary tract infection ) in , antepartum 02/25/2020 08/22/2020 Overview: 02/25/20 - +UTI, will need recheck. Lauryn Anderson APRN.EMRE Nausea and vomiting in 02/21/2020 08/22/2020 Overview: 02/21/2020Patient called in February 06 complaining of nausea and occasional vomiting in . Was given prescription for Phenergan. She states this has helped relieve her symptoms. Dietary considerations discussed . Advised patient to call/come in if she is unable to keep any food or fluids down in a 24-hour period.TKRN Acute pain of left shoulder 09/17/2017 02/29/2020 Pain in limb 01/22/2010 02/29/2020 documented as of this encounter (statuses as of 10/21/2023) [facility] Diagnosis Supervision of high risk in third trimester- Primary Unspecified high-risk 28 weeks gestation of state, incidental Need for vaccination Need for prophylactic vaccination and inoculation against unspecified single disease [facility] Diagnosis 31 weeks gestation of - Primary state, incidental Supervision of high risk in third trimester Unspecified high-risk Anemia complicating , third [facility] Increased nuchal translucency space on ultrasound- Primary Abnormal findings on screening 33 weeks gestation of state, incidental [facility] Diagnosis 33 weeks gestation of - Primary state, incidental Anemia complicating , third trimester Amniotic fluid index increased Nonspecific abnormal finding in amniotic fluid [facility] Anemia complicating , third trimester- Primary 33 weeks gestation of state, incidental [facility] Anemia complicating , third trimester- Primary [facility] Diagnosis 34 weeks gestation of - Primary state, incidental Acute bilateral low back pain without sciatica H/O delivery, currently with history of pre-term labor [facility] 35 weeks gestation of - Primary state, incidental [facility] Anemia complicating , third trimester- Primary [facility] Single delivery by section- Primary delivery, without mention of indication, delivered, with or without mention of antepartum condition care and examination of lactating mother Encounter for screening for maternal depression [facility] Diagnosis care and examination- Primary Routine follow-up [facility] Diagnosis Initiation of Depo Provera- Primary General counseling for initiation of other contraceptive measures Encounter for management and injection of depo-Provera Surveillance of other previously prescribed contraceptive method [facility] Diagnosis Anxiety with depression- Primary [facility] Diagnosis Breakthrough bleeding on depo provera- Primary Metrorrhagia [facility] Diagnosis Encounter for management and injection of depo-Provera- Primary Surveillance of other previously prescribed contraceptive method [facility] Diagnosis Pharyngitis, unspecified etiology- Primary Acute otitis media, right Unspecified otitis media [facility] Diagnosis Pharyngitis, unspecified etiology- Primary Globus sensation Gastrointestinal malfunction arising from mental factors [facility] Diagnosis Sore throat- Primary Acute pharyngitis Depression, unspecified depression type [facility] Diagnosis Throat pain- Primary documented in this [facility] Diagnosis Injury of right lower extremity, initial encounter- Primary [facility] Diagnosis Injury of lower leg, right, initial encounter- Primary [facility] this [facility]* Diagnosis Encounter for gynecological examination (general) (routine) without abnormal findings- Primary Sensation of pressure in bladder area Other specified disorders of bladder Class 1 obesity with body mass index (BMI) of 31.0 to 31.9 in adult, unspecified obesity type, unspecified whether serious comorbidity present documented [facility] this [facility]* Diagnosis URI with cough and congestion- Primary Acute otitis media, right Unspecified otitis media Feared condition not demonstrated Person with feared complaint in whom no diagnosis was made documented in this encounter [facility] note* Diagnosis Unspecified injury of right ankle, subsequent encounter- Primary Sprain of unspecified ligament of right ankle, initial encounter documented in this [facility]* Diagnosis Trochanteric bursitis of right hip- Primary Enthesopathy of hip region documented in this encounter [facility]* Diagnosis Screening for STDs (sexually transmitted diseases)- Primary Screening examination for venereal disease Vaginal irritation Unspecified noninflammatory disorder of vagina [facility] this [facility] Diagnosis Encounter for supervision of high risk in first trimester, antepartum- Primary 8 weeks gestation of state, incidental Screening for malignant neoplasm of cervix Screening for malignant neoplasm of the cervix Uncertain dates, antepartum, unspecified trimester Hyperemesis affecting , antepartum Obesity affecting in first trimester, unspecified obesity type History of section Other postprocedural status H/O delivery, currently with history of pre-term labor Anxiety during Tetrahydrocannabinol (THC) use disorder, mild, abuse Family history of spina bifida Family history of congenital anomalies documented [facility] this [facility]* Diagnosis Obesity affecting in first trimester, unspecified obesity type- Primary 8 weeks gestation of state, incidental Hyperemesis affecting , antepartum H/O delivery, currently with history of pre-term labor Depression affecting Anxiety during History of viral myocarditis Personal history of other diseases of circulatory system Family history of spina bifida Family history of congenital anomalies Tetrahydrocannabinol (THC) use disorder, mild, abuse [facility] Diagnosis TMJ dysfunction- Primary Temporomandibular joint disorders, unspecified documented [facility] this [facility]* Diagnosis 13 weeks gestation of - Primary state, incidental Encounter for supervision of high risk in first trimester, antepartum Obesity affecting in first trimester, unspecified obesity type Encounter for screening for nuchal translucency History of delivery documented [facility] this [facility]* Diagnosis Encounter for screening for malformation using ultrasound- Primary 13 weeks gestation of state, incidental documented [facility] this [facility]* Diagnosis Thickening of nuchal fold- Primary History of viral myocarditis Personal history of other diseases of circulatory system H/O delivery, currently with history of pre-term labor Depression complicating in second trimester, antepartum History of delivery- Primary 18 weeks gestation of state, incidental documented [facility] this [facility]* Diagnosis Thickening of nuchal fold- Primary History of viral myocarditis Personal history of other diseases of circulatory system H/O delivery, currently with history of pre-term labor Depression complicating in second trimester, antepartum Injury of lower leg, right, initial encounter Injury of right ankle, subsequent encounter [facility] Diagnosis Thickening of nuchal fold- Primary History of viral myocarditis Personal history of other diseases of circulatory system H/O delivery, currently with history of pre-term labor Depression complicating in second trimester, antepartum Encounter for anatomic survey- Primary [facility] Diagnosis Thickening of nuchal fold- Primary History of viral myocarditis Personal history of other diseases of circulatory system H/O delivery, currently with history of pre-term labor Depression complicating in second trimester, antepartum 22 weeks gestation of - Primary state, incidental Encounter for supervision of high risk in first trimester, antepartum Obesity affecting in first trimester, unspecified obesity type [facility] Diagnosis Thickening of nuchal fold- Primary History of viral myocarditis Personal history of other diseases of circulatory system H/O delivery, currently with history of pre-term labor Depression complicating in second trimester, antepartum Suspected anomaly not found- Primary Encounter for anatomic survey H/O anomaly in prior , currently with other poor obstetric history 22 weeks gestation of state, incidental H/O delivery, currently with history of pre-term labor Suspected cervical shortening not found [facility] Diagnosis Thickening of nuchal fold- Primary History of viral myocarditis Personal history of other diseases of circulatory system H/O delivery, currently with history of pre-term labor Depression complicating in second trimester, antepartum History of labor- Primary Personal history of pre-term labor [facility] Diagnosis Thickening of nuchal fold- Primary History of viral myocarditis Personal history of other diseases of circulatory system H/O delivery, currently with history of pre-term labor Depression complicating in second trimester, antepartum High-risk in second trimester- Primary 23 weeks gestation of state, incidental Heart palpitations Palpitations Dizziness Dizziness and giddiness documented [facility] Diagnosis Thickening of nuchal fold- Primary History of viral myocarditis Personal history of other diseases of circulatory system H/O delivery, currently with history of pre-term labor Depression complicating in second trimester, antepartum Heart palpitations- Primary Palpitations documented [facility] this [facility] Diagnosis Thickening of nuchal fold- Primary History of viral myocarditis Personal history of other diseases of circulatory system H/O delivery, currently with history of pre-term labor Depression complicating in second trimester, antepartum Palpitations [facility] Diagnosis Thickening of nuchal fold- Primary History of viral myocarditis Personal history of other diseases of circulatory system H/O delivery, currently with history of pre-term labor Depression complicating in second trimester, antepartum History of delivery, currently - Primary with history of pre-term labor 24 weeks gestation of state, incidental documented [facility] this [facility]* Diagnosis Thickening of nuchal fold- Primary History of viral myocarditis Personal history of other diseases of circulatory system H/O delivery, currently with history of pre-term labor Depression complicating in second trimester, antepartum Palpitations- Primary 23 weeks gestation of [Z3A.23] state, incidental Palpitations documented in this [facility]* Diagnosis Thickening of nuchal fold- Primary History of viral myocarditis Personal history of other diseases of circulatory system H/O delivery, currently with history of pre-term labor Depression complicating in second trimester, antepartum Palpitations [facility] Diagnosis Thickening of nuchal fold- Primary History of viral myocarditis Personal history of other diseases of circulatory system H/O delivery, currently with history of pre-term labor Depression complicating in second trimester, antepartum Sinus tachycardia [R00.0]- Primary Other specified cardiac dysrhythmias Palpitations [R00.2] Palpitations , unspecified gestational age [Z34.90] documented in this encounter [facility] for referral (narrative)* Diagnostic Procedure Only (Routine) - Open Specialty Diagnoses / Procedures Referred By Ann fuentes Referred To Contact [facility] Diagnoses 31 weeks gestation of Supervision of high risk in third trimester Procedures OBSTETRIC ULTRASOUND WHI US PREG UTERUS AFTER 1ST TRIMEST GESTATION Rosario Garcia APRN.DIPIKA [address] [place] [address] [facility] [address] [place] [address] Referral ID Status Reason Start Date Expiration Date V isijoshua Requested Visits Authorized [id number] Open Auto-Generate d Referral 12/04/2021 12/04/2022 1 1 [facility] for referral (narrative)* Diagnostic Procedure Only (Routine) - Pending Review Specialty Diagnoses / Procedures Referred By Contac t Referred To Contact XR IMAGING Diagnoses Injury of lower leg, right, initial encounter Procedures XR ANKLE GENERAL 3V AP/LAT/OBL RIGHT RADEX ANKLE COMPLETE MINIMUM 3 VIEWS Alexandru Benitez V, DO [address] [place] [address] [place] [address] Referral ID Status Reason Start Date Expiration Date Visits Requested Visits Authorized [id number] Pending Review Auto-Generat ed Referral 04/30/2023 05/29/2024 1 1 [facility] for referral (narrative)* Diagnostic Procedure Only (Routine) - Authorized Specialty Diagnoses / Procedures Referred By Contac t Referred To Contact [facility] Diagnoses Encounter for screening for nuchal translucency History of delivery Procedures OBSTETRIC ULTRASOUND WHI US PREG UTERUS AFTER 1ST TRIMEST 1 GESTATION Yobani Darby MD [address] [place] [address] [facility] [address] [place] [address] Referral ID Status Reason Start Date Expiration Date Visits Requested Visits Authorized [id number] Authorized Auto-Generat ed Referral 03/09/2024 03/09/2025 4 1 T [facility] for referral (narrative)* Diagnostic Procedure Only (Routine) - Closed Specialty Diagnoses / Procedures Referred By Contac t Referred To Contact XR IMAGING Diagnoses Injury of right ankle, subsequent encounter Procedures XR ANKLE GENERAL 3V AP/LAT/OBL RIGHT RADEX ANKLE COMPLETE MINIMUM 3 VIEWS Surjit Aguirre MD [address] [place] [address] [place] [id number] Referral ID Status Reason Start Date Expiration Date V isits Requested Visits Authorized [id number] Closed Auto-Generate d Referral 08/04/2023 09/02/2024 1 1 [facility] for referral (narrative)* Diagnostic Procedure Only (Routine) - New Request Specialty Diagnoses / Procedures Referred By Contac t Referred To Contact [facility] Diagnoses Encounter for anatomic survey Procedures OBSTETRIC ULTRASOUND WHI US PREG UTERUS AFTER 1ST TRIMEST GESTATION Vini Diez MD [id number] [place] [address] Referral ID Status Reason Start Date Expiration Date Visits Requested Visits Authorized [id number] New Request Auto-Generat ed Referral 05/12/2024 05/12/2025 1 1 T [facility] for referral (narrative)* Diagnostic Procedure Only (Routine) - Authorized Specialty Diagnoses / Procedures Referred By Contac t Referred To Contact [facility] Diagnoses History of labor Procedures OBSTETRIC ULTRASOUND WHI US PREG UTERUS AFTER 1ST TRIMEST GESTATION Danii Weinberg APRN.CNP [address] [place] [address] [facility] [id number] Referral ID Status Reason Start Date Expiration Date Visits Requested Visits Authorized [id number] Authorized Auto-Generat ed Referral 05/17/2024 05/17/2025 1 1 T [facility] for referral (narrative)* Outpatient Procedure (Routine) - New Request Specialty Diagnoses / Procedures Referred By Contac t [facility] Diagnoses Heart palpitations Procedures ECG COMPLETE ECG ROUTINE ECG W/LEAST 12 LDS W/I&R Sami Vora MD [address] [place] [address] [facility] [address] [place] [address] Referral ID Status Reason Start Date Expiration Date Visits Requested Visits Authorized [id number] New Request Auto-Generat ed Referral 05/24/2024 05/24/2025 1 1 [facility] for referral (narrative)* Outpatient Procedure (Routine) - Closed Specialty Diagnoses / Procedures Referred By Ann t Referred To Contact [facility] [place] Diagnoses Palpitations Procedures ECHO ECHO TTHRC R-T 2D W/WOM-MODE COMPL SPEC&COLR D Sami Vora MD [address] [place] [address] [facility] [address] [place] [address] Referral ID Status Reason Start Date Expiration Date V isits Requested Visits Authorized [id number] Closed Auto-Generate d Referral 05/26/2024 05/26/2025 1 1 [facility] for visit Narrative* Diagnostic Procedure Only (Routine) - Closed Specialty Diagnoses / Procedures Referred By Contac t Referred To Contact XR IMAGING Diagnoses Injury of right ankle, subsequent encounter Procedures XR FOOT GENERAL 3V AP/LAT/OBL RIGHT RADEX FOOT COMPLETE MINIMUM 3 VIEWS Surjit Aguirre MD [address] [place] [address] [place] [address] Referral ID Status Reason Start Date Expiration Date V isits Requested Visits Authorized [id number] Closed Auto-Generate d Referral 07/29/2023 08/27/2024 1 1 [facility] for visit Narrative* Diagnostic Procedure Only (Urgent) - Closed Specialty Diagnoses / Procedures Referred By Contac t Referred To Contact XR IMAGING Diagnoses Injury of right lower extremity, initial encounter Procedures XR ANKLE GENERAL 3V AP/LAT/OBL RIGHT RADEX ANKLE COMPLETE MINIMUM 3 VIEWS Duane Higuera APRN.SAMPLE MOUNTER [address] [place] [address] [place] [address] Referral ID Status Reason Start Date Expiration Date V isits Requested Visits Authorized [id number] Closed Auto-Generate d Referral 04/17/2023 05/16/2024 1 1 [facility] Outpatient Procedure (Routine) - Closed Specialty Diagnoses / Procedures Referred By Contac t Referred [facility] Diagnoses Palpitations Procedures ECHO ECHO TTHRC R-T 2D W/WOM-MODE COMPL SPEC&COLR D Sami Vora MD [address] [place] [address] [facility] [address] [place] [address] Referral ID Status Reason Start Date Expiration Date V isits Requested Visits Authorized [id number] Closed Auto-Generate d Referral 05/26/2024 05/26/2025 1 1 [facility] Medications Administered Section Inactive Administered Medications - up to 3 most recent administrations Medication Order MAR Action Action Date Dose Rate Site iron sucrose 200 mg in NaCl 0.9% 100ml (VENOFER) 200 mg, INTRAVENOUS, at 400 mL/hr, Administer over 15 Minutes, ONCE, 1 dose, On Fri12/25/21 at 1430, Please conduct a 30 minute post dose observation- weekly x 4 New Bag/Syringe/Bottle 12/25/2021 2:31 PM EDT 200 mg 400 mL/hr Inactive Administered Medications - up to 3 most recent administrations Medication Order MAR Action Action Date Dose Rate Site iron sucrose 200 mg in NaCl 0.9% 100ml (VENOFER) 200 mg, INTRAVENOUS, at 400 mL/hr, Administer over 15 Minutes, ONCE, 1 dose, On Fri12/31/21 at 1530, Please conduct a 30 minute post dose observation- weekly x 4 New Bag/Syringe/Bottle 12/31/2021 3:29 PM EDT 200 mg 400 mL/hr Active Administered Medications - up to 3 most recent administrations Medication Order MAR Action Action Date Dose Rate Site medroxyPROGESTERone 150 mg injection (DEPO-PROVERA) 150 mg, INTRAMUSCULAR, EVERY 12 WEEKS, 4 doses, First dose on Fri02/19/22 at 1600, Last dose on Fri10/29/22 at 1600, Hazardous Potential Reproductive Risk Drug: Use appropriate PPE. Given 02/21/2022 9:19 AM EDT 150 mg Buttocks, Right Active Administered Medications - up to 3 most recent administrations Medication Order MAR Action Action Date Dose Rate Site medroxyPROGESTERone 150 mg injection (DEPO-PROVERA) 150 mg, INTRAMUSCULAR, EVERY 12 WEEKS, 4 doses, First dose on Fri02/19/22 at 1600, Last dose on Fri10/29/22 at 1600, Hazardous Potential Reproductive Risk Drug: Use appropriate PPE. Given 05/16/2022 10:07 AM EDT 150 mg Buttocks, Left Given 02/21/2022 9:19 AM EDT 150 mg Bu ttocks, Right Summary Purpose Family History No Family History Records FoundNo Family History Records FoundNo Family History Records Found Advance Directives No Advanced Directives Records FoundNo Advanced Directives Records FoundNo Advanced Directives Records Found Reason for Referral Specialty Diagnoses / Procedures Referred By Contac t Referred To Contact Ent - Otolaryngology Diagnoses Throat pain Procedures CONSULT TO ENT OFFICE/OUTPATIENT [facility] 60-74 MINUTES Surjit Aguirre MD [address] [place] [address] Referral ID Status Reason Start Date Expiration Date Visits Requested Visits Authorized [id number] Authorized PCP Requested Referral 10/01/2022 10/01/2023 1 1 Specialty Diagnoses / Procedures Referred By Contac t Referred To Contact Orthopedics Diagnoses Injury of right lower extremity, initial encounter Procedures CONSULT TO ORTHOPAEDICS OFFICE/OUTPATIENT [facility] 60-74 MINUTES Duane Higuera APRN.CNP [address] [place] [address] Referral ID Status Reason Start Date Expiration Date Visits Requested Visits Authorized [id number] Authorized PCP Requested Referral 04/17/2023 04/16/2024 1 1 Specialty Diagnoses / Procedures Referred By Contac t Referred To Contact XR IMAGING Diagnoses Injury of right lower extremity, initial encounter Procedures XR ANKLE GENERAL 3V AP/LAT/OBL RIGHT RADEX ANKLE COMPLETE MINIMUM 3 VIEWS Duane Higuera APRN.SAMPLE MOUNTER [address] [place] [address] [place] [address] Referral ID Status Reason Start Date Expiration Date V isits Requested Visits Authorized [id number] Closed Auto-Generate d Referral 04/17/2023 05/16/2024 1 1 Specialty Diagnoses / Procedures Referred By Contac t Referred To Contact XR IMAGING Diagnoses Injury of right lower extremity, initial encounter Procedures XR FOOT GENERAL 3V AP/LAT/OBL RIGHT RADEX FOOT COMPLETE MINIMUM 3 VIEWS Duane Higuera APRN.SAMPLE MOUNTER [address] [place] [address] [place] [address] Referral ID Status Reason Start Date Expiration Date V isits Requested Visits Authorized [id number] Closed Auto-Generate d Referral 04/17/2023 05/16/2024 1 1 Specialty Diagnoses / Procedures Referred By Contac t Referred To Contact Diagnoses Encounter for supervision of high risk in first trimester, antepartum 8 weeks gestation of Procedures CONSULT TO MATERNAL MEDI CONSULT TO MATERNAL MEDI OFFICE/OUTPATIENT NEW HIGH MDM 60 MINUTES Danii Weinberg APRN.SAMPLE MOUNTER [address] [place] [address] Referral ID Status Reason Start Date Expiration Date Visits Requested Visits Authorized [id number] Authorized PCP Requested Referral Auto-Generate d Referral 02/04/2024 02/03/2025 1 1 Specialty Diagnoses / Procedures Referred By Contac t Referred To Contact [facility] Diagnoses Encounter for supervision of high risk in first trimester, antepartum 8 weeks gestation of Procedures NUCHAL TRANSLUCENCY WHI US NUCHAL TRANSLUCENCY 1ST GESTATION Danii Weinberg APRN.SAMPLE MOUNTER [address] [place] [address] [facility] [address] [place] [address] Referral ID Status Reason Start Date Expiration Date Visits Requested Visits Authorized [id number] Pending Review Auto-Generat ed Referral 02/04/2024 02/03/2025 1 1 Specialty Diagnoses / Procedures Referred By Contac t Referred To Contact Cardiology Diagnoses High-risk in second trimester 23 weeks gestation of Heart palpitations Dizziness Procedures CONSULT TO CARDIOLOGY OFFICE/OUTPATIENT [facility] HIGH MDM 60 MINUTES Rosario Garcia APRN.CNMarek [address] [place] [address] Referral ID Status Reason Start Date Expiration Date Visits Requested Visits Authorized [id number] Authorized PCP Requested Referral 05/21/2024 05/21/2025 1 1 Specialty Diagnoses / Procedures Referred By Contac t Referred To Contact [facility] [place] Procedures CARDIOVASCULAR MEDICINE OP FOLLOW UP APPT ORDER Sami Vora MD [address] [facility] [place] [address] [address] [address] [place] [address] Referral ID Status Reason Start Date Expiration Date Visits Requested Visits Authorized [id number] Ref Not Required PCP Requested Referral 06/07/2025 1 1 Specialty Diagnoses / Procedures Referred By Contac t Referred To Contact [facility] [place] Diagnoses Palpitations Procedures ECHO ECHO TTHRC R-T 2D W/WOM-MODE COMPL SPEC&COLR D Sami Vora MD [address] [facility] [place] [address] [address] [place] [address] Referral ID Status Reason Start Date Expiration Date V isits Requested Visits Authorized [id number] Closed Auto-Generate d Referral 05/26/2024 05/26/2025 1 1 Referral ID Status Reason Start Date Expiration Date Visits Requested Visits Authorized [id number] Ref Not Required PCP Requested Referral 06/09/2025 1 1 Additional Source Comments Source Comments (unrecognize d section and content) In the event this informatio n is protected by the Federal Confidentiality of Alcohol and Drug Abuse Patient Records regulations: The Federal rules restrict any use of the information to criminally investigate or prosecute any alcohol or drug abuse patient.[facility] the event this information is protected by the Federal Confidentiality of Alcohol and Drug Abuse Patient Records regulations: The Federal rules restrict any use of the information to criminally investigate or prosecute any alcohol or drug abuse patient.[facility] the event this information is protected by the Federal Confidentiality of Alcohol and Drug Abuse Patient Records regulations: The Federal rules restrict any use of the information to criminally investigate or prosecute any alcohol or drug abuse patient.[facility] the event this information is protected by the Federal Confidentiality of Alcohol and Drug Abuse Patient Records regulations: The Federal rules restrict any use of the information to criminally investigate or prosecute any alcohol or drug abuse patient.[facility] the event this information is protected by the Federal Confidentiality of Alcohol and Drug Abuse Patient Records regulations: The Federal rules restrict any use of the information to criminally investigate or prosecute any alcohol or drug abuse patient.[facility] HospitalIn the event this information is protected by the Federal Confidentiality of Alcohol and Drug Abuse Patient Records regulations: The Federal rules restrict any use of the information to criminally investigate or prosecute any alcohol or drug abuse patient.[facility] HospitalIn the event this information is protected by the Federal Confidentiality of Alcohol and Drug Abuse Patient Records regulations: The Federal rules restrict any use of the information to criminally investigate or prosecute any alcohol or drug abuse patient.[facility] HospitalIn the event this information is protected by the Federal Confidentiality of Alcohol and Drug Abuse Patient Records regulations: The Federal rules restrict any use of the information to criminally investigate or prosecute any alcohol or drug abuse patient.[facility] HospitalIn the event this information is protected by the Federal Confidentiality of Alcohol and Drug Abuse Patient Records regulations: The Federal rules restrict any use of the information to criminally investigate or prosecute any alcohol or drug abuse patient.[facility] HospitalIn the event this information is protected by the Federal Confidentiality of Alcohol and Drug Abuse Patient Records regulations: The Federal rules restrict any use of the information to criminally investigate or prosecute any alcohol or drug abuse patient.[facility] HospitalIn the event this information is protected by the Federal Confidentiality of Alcohol and Drug Abuse Patient Records regulations: The Federal rules restrict any use of the information to criminally investigate or prosecute any alcohol or drug abuse patient.[facility] HospitalIn the event this information is protected by the Federal Confidentiality of Alcohol and Drug Abuse Patient Records regulations: The Federal rules restrict any use of the information to criminally investigate or prosecute any alcohol or drug abuse patient.[facility] HospitalIn the event this information is protected by the Federal Confidentiality of Alcohol and Drug Abuse Patient Records regulations: The Federal rules restrict any use of the information to criminally investigate or prosecute any alcohol or drug abuse patient.[facility] HospitalIn the event this information is protected by the Federal Confidentiality of Alcohol and Drug Abuse Patient Records regulations: The Federal rules restrict any use of the information to criminally investigate or prosecute any alcohol or drug abuse patient.[facility] HospitalIn the event this information is protected by the Federal Confidentiality of Alcohol and Drug Abuse Patient Records regulations: The Federal rules restrict any use of the information to criminally investigate or prosecute any alcohol or drug abuse patient.[facility] HospitalIn the event this information is protected by the Federal Confidentiality of Alcohol and Drug Abuse Patient Records regulations: The Federal rules restrict any use of the information to criminally investigate or prosecute any alcohol or drug abuse patient.[facility] HospitalIn the event this information is protected by the Federal Confidentiality of Alcohol and Drug Abuse Patient Records regulations: The Federal rules restrict any use of the information to criminally investigate or prosecute any alcohol or drug abuse patient.[facility] HospitalIn the event this information is protected by the Federal Confidentiality of Alcohol and Drug Abuse Patient Records regulations: The Federal rules restrict any use of the information to criminally investigate or prosecute any alcohol or drug abuse patient.[facility] HospitalIn the event this information is protected by the Federal Confidentiality of Alcohol and Drug Abuse Patient Records regulations: The Federal rules restrict any use of the information to criminally investigate or prosecute any alcohol or drug abuse patient.[facility] HospitalIn the event this information is protected by the Federal Confidentiality of Alcohol and Drug Abuse Patient Records regulations: The Federal rules restrict any use of the information to criminally investigate or prosecute any alcohol or drug abuse patient.[facility] HospitalIn the event this information is protected by the Federal Confidentiality of Alcohol and Drug Abuse Patient Records regulations: The Federal rules restrict any use of the information to criminally investigate or prosecute any alcohol or drug abuse patient.[facility] HospitalIn the event this information is protected by the Federal Confidentiality of Alcohol and Drug Abuse Patient Records regulations: The Federal rules restrict any use of the information to criminally investigate or prosecute any alcohol or drug abuse patient.[facility] HospitalIn the event this information is protected by the Federal Confidentiality of Alcohol and Drug Abuse Patient Records regulations: The Federal rules restrict any use of the information to criminally investigate or prosecute any alcohol or drug abuse patient.[facility] HospitalIn the event this information is protected by the Federal Confidentiality of Alcohol and Drug Abuse Patient Records regulations: The Federal rules restrict any use of the information to criminally investigate or prosecute any alcohol or drug abuse patient.[facility] HospitalIn the event this information is protected by the Federal Confidentiality of Alcohol and Drug Abuse Patient Records regulations: The Federal rules restrict any use of the information to criminally investigate or prosecute any alcohol or drug abuse patient.[facility] HospitalIn the event this information is protected by the Federal Confidentiality of Alcohol and Drug Abuse Patient Records regulations: The Federal rules restrict any use of the information to criminally investigate or prosecute any alcohol or drug abuse patient.[facility] HospitalIn the event this information is protected by the Federal Confidentiality of Alcohol and Drug Abuse Patient Records regulations: The Federal rules restrict any use of the information to criminally investigate or prosecute any alcohol or drug abuse patient.[facility] HospitalIn the event this information is protected by the Federal Confidentiality of Alcohol and Drug Abuse Patient Records regulations: The Federal rules restrict any use of the information to criminally investigate or prosecute any alcohol or drug abuse patient.[facility] HospitalIn the event this information is protected by the Federal Confidentiality of Alcohol and Drug Abuse Patient Records regulations: The Federal rules restrict any use of the information to criminally investigate or prosecute any alcohol or drug abuse patient.[facility] HospitalIn the event this information is protected by the Federal Confidentiality of Alcohol and Drug Abuse Patient Records regulations: The Federal rules restrict any use of the information to criminally investigate or prosecute any alcohol or drug abuse patient.[facility] HospitalIn the event this information is protected by the Federal Confidentiality of Alcohol and Drug Abuse Patient Records regulations: The Federal rules restrict any use of the information to criminally investigate or prosecute any alcohol or drug abuse patient.[facility] HospitalIn the event this information is protected by the Federal Confidentiality of Alcohol and Drug Abuse Patient Records regulations: The Federal rules restrict any use of the information to criminally investigate or prosecute any alcohol or drug abuse patient.[facility] HospitalIn the event this information is protected by the Federal Confidentiality of Alcohol and Drug Abuse Patient Records regulations: The Federal rules restrict any use of the information to criminally investigate or prosecute any alcohol or drug abuse patient.[facility] HospitalIn the event this information is protected by the Federal Confidentiality of Alcohol and Drug Abuse Patient Records regulations: The Federal rules restrict any use of the information to criminally investigate or prosecute any alcohol or drug abuse patient.[facility] HospitalIn the event this information is protected by the Federal Confidentiality of Alcohol and Drug Abuse Patient Records regulations: The Federal rules restrict any use of the information to criminally investigate or prosecute any alcohol or drug abuse patient.[facility] HospitalIn the event this information is protected by the Federal Confidentiality of Alcohol and Drug Abuse Patient Records regulations: The Federal rules restrict any use of the information to criminally investigate or prosecute any alcohol or drug abuse patient.[facility] HospitalIn the event this information is protected by the Federal Confidentiality of Alcohol and Drug Abuse Patient Records regulations: The Federal rules restrict any use of the information to criminally investigate or prosecute any alcohol or drug abuse patient.[facility] HospitalIn the event this information is protected by the Federal Confidentiality of Alcohol and Drug Abuse Patient Records regulations: The Federal rules restrict any use of the information to criminally investigate or prosecute any alcohol or drug abuse patient.[facility] HospitalIn the event this information is protected by the Federal Confidentiality of Alcohol and Drug Abuse Patient Records regulations: The Federal rules restrict any use of the information to criminally investigate or prosecute any alcohol or drug abuse patient.[facility] HospitalIn the event this information is protected by the Federal Confidentiality of Alcohol and Drug Abuse Patient Records regulations: The Federal rules restrict any use of the information to criminally investigate or prosecute any alcohol or drug abuse patient.[facility] HospitalIn the event this information is protected by the Federal Confidentiality of Alcohol and Drug Abuse Patient Records regulations: The Federal rules restrict any use of the information to criminally investigate or prosecute any alcohol or drug abuse patient.[facility] HospitalIn the event this information is protected by the Federal Confidentiality of Alcohol and Drug Abuse Patient Records regulations: The Federal rules restrict any use of the information to criminally investigate or prosecute any alcohol or drug abuse patient.[facility] HospitalIn the event this information is protected by the Federal Confidentiality of Alcohol and Drug Abuse Patient Records regulations: The Federal rules restrict any use of the information to criminally investigate or prosecute any alcohol or drug abuse patient.[facility] HospitalIn the event this information is protected by the Federal Confidentiality of Alcohol and Drug Abuse Patient Records regulations: The Federal rules restrict any use of the information to criminally investigate or prosecute any alcohol or drug abuse patient.[facility] HospitalIn the event this information is protected by the Federal Confidentiality of Alcohol and Drug Abuse Patient Records regulations: The Federal rules restrict any use of the information to criminally investigate or prosecute any alcohol or drug abuse patient.[facility] HospitalIn the event this information is protected by the Federal Confidentiality of Alcohol and Drug Abuse Patient Records regulations: The Federal rules restrict any use of the information to criminally investigate or prosecute any alcohol or drug abuse patient.[facility] HospitalIn the event this information is protected by the Federal Confidentiality of Alcohol and Drug Abuse Patient Records regulations: The Federal rules restrict any use of the information to criminally investigate or prosecute any alcohol or drug abuse patient.[facility] HospitalIn the event this information is protected by the Federal Confidentiality of Alcohol and Drug Abuse Patient Records regulations: The Federal rules restrict any use of the information to criminally investigate or prosecute any alcohol or drug abuse patient.[facility] HospitalIn the event this information is protected by the Federal Confidentiality of Alcohol and Drug Abuse Patient Records regulations: The Federal rules restrict any use of the information to criminally investigate or prosecute any alcohol or drug abuse patient.[facility] HospitalIn the event this information is protected by the Federal Confidentiality of Alcohol and Drug Abuse Patient Records regulations: The Federal rules restrict any use of the information to criminally investigate or prosecute any alcohol or drug abuse patient.[facility] HospitalIn the event this information is protected by the Federal Confidentiality of Alcohol and Drug Abuse Patient Records regulations: The Federal rules restrict any use of the information to criminally investigate or prosecute any alcohol or drug abuse patient.[facility] HospitalIn the event this information is protected by the Federal Confidentiality of Alcohol and Drug Abuse Patient Records regulations: The Federal rules restrict any use of the information to criminally investigate or prosecute any alcohol or drug abuse patient.[facility] HospitalIn the event this information is protected by the Federal Confidentiality of Alcohol and Drug Abuse Patient Records regulations: The Federal rules restrict any use of the information to criminally investigate or prosecute any alcohol or drug abuse patient.[facility] HospitalIn the event this information is protected by the Federal Confidentiality of Alcohol and Drug Abuse Patient Records regulations: The Federal rules restrict any use of the information to criminally investigate or prosecute any alcohol or drug abuse patient.[facility] HospitalIn the event this information is protected by the Federal Confidentiality of Alcohol and Drug Abuse Patient Records regulations: The Federal rules restrict any use of the information to criminally investigate or prosecute any alcohol or drug abuse patient.[facility] HospitalIn the event this information is protected by the Federal Confidentiality of Alcohol and Drug Abuse Patient Records regulations: The Federal rules restrict any use of the information to criminally investigate or prosecute any alcohol or drug abuse patient.[facility] HospitalIn the event this information is protected by the Federal Confidentiality of Alcohol and Drug Abuse Patient Records regulations: The Federal rules restrict any use of the information to criminally investigate or prosecute any alcohol or drug abuse patient.[facility] HospitalIn the event this information is protected by the Federal Confidentiality of Alcohol and Drug Abuse Patient Records regulations: The Federal rules restrict any use of the information to criminally investigate or prosecute any alcohol or drug abuse patient.[facility] HospitalIn the event this information is protected by the Federal Confidentiality of Alcohol and Drug Abuse Patient Records regulations: The Federal rules restrict any use of the information to criminally investigate or prosecute any alcohol or drug abuse patient.[facility] HospitalIn the event this information is protected by the Federal Confidentiality of Alcohol and Drug Abuse Patient Records regulations: The Federal rules restrict any use of the information to criminally investigate or prosecute any alcohol or drug abuse patient.[facility] HospitalIn the event this information is protected by the Federal Confidentiality of Alcohol and Drug Abuse Patient Records regulations: The Federal rules restrict any use of the information to criminally investigate or prosecute any alcohol or drug abuse patient.[facility] HospitalIn the event this information is protected by the Federal Confidentiality of Alcohol and Drug Abuse Patient Records regulations: The Federal rules restrict any use of the information to criminally investigate or prosecute any alcohol or drug abuse patient.[facility] HospitalIn the event this information is protected by the Federal Confidentiality of Alcohol and Drug Abuse Patient Records regulations: The Federal rules restrict any use of the information to criminally investigate or prosecute any alcohol or drug abuse patient.[facility] HospitalIn the event this information is protected by the Federal Confidentiality of Alcohol and Drug Abuse Patient Records regulations: The Federal rules restrict any use of the information to criminally investigate or prosecute any alcohol or drug abuse patient.[facility] HospitalIn the event this information is protected by the Federal Confidentiality of Alcohol and Drug Abuse Patient Records regulations: The Federal rules restrict any use of the information to criminally investigate or prosecute any alcohol or drug abuse patient.[facility] HospitalIn the event this information is protected by the Federal Confidentiality of Alcohol and Drug Abuse Patient Records regulations: The Federal rules restrict any use of the information to criminally investigate or prosecute any alcohol or drug abuse patient.[facility] HospitalIn the event this information is protected by the Federal Confidentiality of Alcohol and Drug Abuse Patient Records regulations: The Federal rules restrict any use of the information to criminally investigate or prosecute any alcohol or drug abuse patient.[facility] HospitalIn the event this information is protected by the Federal Confidentiality of Alcohol and Drug Abuse Patient Records regulations: The Federal rules restrict any use of the information to criminally investigate or prosecute any alcohol or drug abuse patient.[facility] HospitalIn the event this information is protected by the Federal Confidentiality of Alcohol and Drug Abuse Patient Records regulations: The Federal rules restrict any use of the information to criminally investigate or prosecute any alcohol or drug abuse patient.[facility] HospitalIn the event this information is protected by the Federal Confidentiality of Alcohol and Drug Abuse Patient Records regulations: The Federal rules restrict any use of the information to criminally investigate or prosecute any alcohol or drug abuse patient.[facility] Reason for Visit (unrecogniz ed section and content) Reason Comments US Specialty Diagnoses / Procedures Referred By Contac t Referred To Contact [facility] Diagnoses Encounter for supervision of high risk in first trimester, antepartum 8 weeks gestation of Procedures NUCHAL TRANSLUCENCY WHI US NUCHAL TRANSLUCENCY 1ST GESTATION Danii Weinberg APRN.[employer] [address] [place] [address] [facility] [address] [place] [address] Referral ID Status Reason Start Date Expiration Date V isits Requested Visits Authorized [id number] Closed Auto-Generate d Referral 02/04/2024 02/03/2025 1 1 Specialty Diagnoses / Procedures Referred By Contac t Referred To Contact Diagnoses Encounter for supervision of high risk in first trimester, antepartum 8 weeks gestation of Procedures CONSULT TO MATERNAL MEDI CONSULT TO MATERNAL MEDI OFFICE/OUTPATIENT [facility] 60 MINUTES Danii Weinberg APRN.[employer] [address] [place] [address] Referral ID Status Reason Start Date Expiration Date V isits Requested Visits Authorized [id number] Closed PCP Requested Referral Auto-Generated Referral 02/04/2024 02/03/2025 1 1 Reason Comments Non-Chemotherapy Treatment Specialty Diagnoses / Procedures Referred By Contac t Referred To Contact Diagnoses Anemia complicating , third trimester Procedures IRON SUCROSE INJECTION PER 1 MG Walter Stone DO [address] [place] [address] [facility] [address] [place] [address] Referral ID Status Reason Start Date Expiration Date V isits Requested Visits Authorized [id number] Authorized 12/21/2021 08/17/2022 99 99 Reason Comments Opened In Error Reason Onset Date Comments Care 11/13/2021 Reason Onset Date Comments Care 12/04/2021 Specialty Diagnoses / Procedures Referred By Contac t Referred To Contact [facility] Diagnoses 31 weeks gestation of Supervision of high risk in third trimester Procedures OBSTETRIC ULTRASOUND WHI US PREG UTERUS AFTER 1ST TRIMEST GESTATION Rosario Garcia APRN.CNM [address] [place] [address] [address] Referral ID Status Reason Start Date Expiration Date V isits Requested Visits Authorized [id number] Closed Auto-Generate d Referral 12/07/2021 08/17/2022 1 1 Reason Onset Date Comments Care 12/17/2021 Reason Comments Results referral to [facility] fo r Iron Sucrose Reason Comments Blood management Reason Comments Infusion Reason Onset Date Comments Care 12/27/2021 Reason Onset Date Comments Care 12/31/2021 Reason Comments OB Contractions Reason Comments Ob Delivery Note Reason Comments Care Reason Onset Date Comments Depo Provera Injection 02/21/2022 Reason Comments F/U 3 Month Reason Comments Vaginal Bleeding Reason Onset Date Comments Depo Provera Injection 05/16/2022 Reason Comments Ear Pain R ear pain, cough, H A, runny nose x2 days Reason Comments Sore Throat X 1 week Reason Comments Medication Follow-up Reason Comments Appointment Reason Comments Right Ankle Pain X 1 day Reason Comments Well Woman Reason Comments Ear Pain Right ear pain x 1 d ayCough, congestion x 3 days Reason Comments Physical Therapy Specialty Diagnoses / Procedures Referred By Contac t Referred To Contact [facility] Diagnoses Injury of right ankle, subsequent encounter Sprain of right ankle, unspecified ligament, initial encounter Procedures CONSULT TO PHYSICAL THERAPY PHYSICAL THERAPY EVALUATION HIGH COMPLEX 45 MINS Indira Ibarra [address] [place] [address] [address] Referral ID Status Reason Start Date Expiration Date Visits Requested Visits Authorized [id number] Authorized Auto-Generat ed Referral 08/18/2023 08/17/2024 20 20 Reason Comments Right Hip Pain Reason Comments Results Reason Comments Initial OB Visit Reason Comments Orders Reason Comments Patient Update [facility] Reason Comments jaw pain Left side Reason Onset Date Comments Care 03/09/2024 Reason Comments Patient Update Specialty Diagnoses / Procedures Referred By Contac t Referred To Contact [facility] Diagnoses Encounter for screening for nuchal translucency History of delivery Procedures OBSTETRIC ULTRASOUND WHI US PREG UTERUS AFTER 1ST TRIMEST GESTATION Yobani Darby MD [address] [place] [address] [address] Referral ID Status Reason Start Date Expiration Date V isits Requested Visits Authorized [id number] Closed Auto-Generate d Referral 03/09/2024 03/09/2025 4 1 Reason Onset Date Comments Care 05/13/2024 Reason Comments Orders Reason Onset Date Comments Care 05/21/2024 Reason Comments Holter Monitor Application 48 HR Specialty Diagnoses / Procedures Referred By Contac t Referred To Contact [facility] Diagnoses History of labor Procedures OBSTETRIC ULTRASOUND WHI US PREG UTERUS AFTER 1ST TRIMEST GESTATION Danii Weinberg, [employer] WORKER.S[employer] [address] [place] [id number] [facility] [address] [place] [address] Referral ID Status Reason Start Date Expiration Date V isits Requested Visits Authorized [id number] Closed Auto-Generate d Referral 05/17/2024 05/17/2025 1 1 Reason Comments New Patient Consult Shortness of Breath A little Specialty Diagnoses / Procedures Referred By Contac t Referred To Contact Cardiology Diagnoses High-risk in second trimester 23 weeks gestation of Heart palpitations Dizziness Procedures CONSULT TO CARDIOLOGY OFFICE/OUTPATIENT NEW HIGH MDM 60 MINUTES Rosario Garcia, ROLLED MATERIALS WORKER.CNM [address] [place] [address] Referral ID Status Reason Start Date Expiration Date V isits Requested Visits Authorized [id number] Closed PCP Requested Referral 05/21/2024 05/21/2025 1 1 Care Teams (unrecognized sec tion and content) Material Cutter Relationship Specialty Start Date End Date Surjit Aguirre MD [address] [facility] [place] [address] PCP - General Family Practice 05/28/12 Material Cutter Relationship Specialty Start Date End Date Surjit Aguirre MD [address] [facility] [place] [address] PCP - General Family Practice 05/28/12 Material Cutter Relationship Specialty Start Date End Date Surjit Aguirre MD [address] [facility] [place] [address] PCP - General Family Practice 05/28/12 Material Cutter Relationship Specialty Start Date End Date Surjit Aguirre MD [facility] [place] [address] PCP - General Family Practice 05/28/12 Material Cutter Relationship Specialty Start Date End Date Surjit Aguirre MD [facility] [place] [address] PCP - General Family Practice 05/28/12 Material Cutter Relationship Specialty Start Date End Date Surjit Aguirre MD [facility] [place] [address] PCP - General Family Practice 05/28/12 Material Cutter Relationship Specialty Start Date End Date Surjit Aguirre MD [facility] [place] [address] PCP - General Family Practice 05/28/12 Material Cutter Relationship Specialty Start Date End Date Surjit Aguirre MD [address] [facility] [place] [address] PCP - General Family Practice 05/28/12 Material Cutter Relationship Specialty Start Date End Date Surjit Aguirre MD [facility] [place] [address] PCP - General Family Practice 05/28/12 Material Cutter Relationship Specialty Start Date End Date Surjit Aguirre MD [address] [facility] [place] [address] PCP - General Family Practice 05/28/12 Material Cutter Relationship Specialty Start Date End Date Surjit Aguirre MD [address] [facility] [place] [address] PCP - General Family Practice 05/28/12 Material Cutter Relationship Specialty Start Date End Date Surjit Aguirre MD [address] [facility] [place] [address] PCP - General Family Practice 05/28/12 Material Cutter Relationship Specialty Start Date End Date Surjit Aguirre MD [address] [facility] [place] [address] PCP - General Family Practice 05/28/12 Material Cutter Relationship Specialty Start Date End Date Surjit Aguirre MD [address] [facility] [place] [address] PCP - General Family Medicine 05/28/12 Material Cutter Relationship Specialty Start Date End Date Surjit Aguirre MD [address] [facility] [place] [address] PCP - General Family Medicine 05/28/12 Material Cutter Relationship Specialty Start Date End Date Surjit Aguirre MD [address] [facility] [place] [address] PCP - General Family Medicine 05/28/12 Material Cutter Relationship Specialty Start Date End Date Surjit Aguirre MD [address] [facility] [place] [address] PCP - General Family Medicine 05/28/12 Material Cutter Relationship Specialty Start Date End Date Surjit Aguirre MD [address] [facility] [place] [address] PCP - General Family Medicine 05/28/12 Material Cutter Relationship Specialty Start Date End Date Surjit Aguirre MD [address] [place] [address] PCP - General Family Medicine 05/28/12 Material Cutter Relationship Specialty Start Date End Date Surjit Aguirre MD [address] [place] [address] PCP - General Family Medicine 05/28/12 Material Cutter Relationship Specialty Start Date End Date Surjit Aguirre MD [address] [place] [address] PCP - General Family Medicine 05/28/12 Material Cutter Relationship Specialty Start Date End Date Surjit Aguirre MD [address] [place] [address] PCP - General Family Medicine 05/28/12 Material Cutter Relationship Specialty Start Date End Date Surjit Aguirre MD [address] [place] [address] PCP - General Family Medicine 05/28/12 Material Cutter Relationship Specialty Start Date End Date Surjit Aguirre MD [address] [place] [address] PCP - General Family Medicine 05/28/12 Material Cutter Relationship Specialty Start Date End Date Surjit Aguirre MD [address] [place] [address] PCP - General Family Medicine 05/28/12 Material Cutter Relationship Specialty Start Date End Date Surjit Aguirre MD [address] [place] [address] PCP - General Family Medicine 05/28/12 Material Cutter Relationship Specialty Start Date End Date Surjit Aguirre MD [address] [facility] [place] [address] PCP - General Family Medicine 05/28/12 Material Cutter Relationship Specialty Start Date End Date Surjit Aguirre MD [address] [place] [address] PCP - General Family Medicine 05/28/12 Material Cutter Relationship Specialty Start Date End Date Surjit Aguirre MD [address] [place] [address] PCP - General Family Medicine 05/28/12 Material Cutter Relationship Specialty Start Date End Date Surjit Aguirre MD [address] [place] [address] PCP - General Family Medicine 05/28/12 Material Cutter Relationship Specialty Start Date End Date Surjit Aguirre MD [address] [place] [address] PCP - General Family Medicine 05/28/12 Material Cutter Relationship Specialty Start Date End Date Surjit Aguirre MD [address] [place] [address] PCP - General Family Medicine 05/28/12 Material Cutter Relationship Specialty Start Date End Date Surjit Aguirre MD [address] [facility] [place] [address] PCP - General Family Medicine 05/28/12 Material Cutter Relationship Specialty Start Date End Date Surjit Aguirre MD [address] [facility] [place] [address] PCP - General Family Medicine 05/28/12 Material Cutter Relationship Specialty Start Date End Date Surjit Aguirre MD [address] [facility] [place] [address] PCP - General Family Medicine 05/28/12 Material Cutter Relationship Specialty Start Date End Date Surjit Aguirre MD [address] [facility] [place] [address] PCP - General Family Medicine 05/28/12 Material Cutter Relationship Specialty Start Date End Date Surjit Aguirre MD [address] [facility] [place] [address] PCP - General Family Medicine 05/28/12 Material Cutter Relationship Specialty Start Date End Date Surjit Aguirre MD [address] [facility] [place] [address] PCP - General Family Medicine 05/28/12 Material Cutter Relationship Specialty Start Date End Date Surjit Aguirre MD [address] [facility] [place] [address] PCP - General Family Medicine 05/28/12 Material Cutter Relationship Specialty Start Date End Date Surjit Aguirre MD [address] [facility] [place] [address] PCP - General Family Medicine 05/28/12 Material Cutter Relationship Specialty Start Date End Date Surjit Aguirre MD [address] [facility] [place] [address] PCP - General Family Medicine 05/28/12 Material Cutter Relationship Specialty Start Date End Date Surjit Aguirre MD [address] [place], [place] [address] PCP - General Family Medicine 05/28/12 Material Cutter Relationship Specialty Start Date End Date Surjit Aguirre MD [address] [place], [place] [address] PCP - General Family Medicine 05/28/12 Material Cutter Relationship Specialty Start Date End Date Surjit Aguirre MD [address] [place] [address] PCP - General Family Medicine 05/28/12 Material Cutter Relationship Specialty Start Date End Date Surjit Aguirre MD [address] [place] [address] PCP - General Family Medicine 05/28/12 Material Cutter Relationship Specialty Start Date End Date Surjit Aguirre MD [address] [place], [place] [address] PCP - General Family Medicine 05/28/12 Sami Vora MD [address] [place], [place] [id number] Primary Staff Physician Cardiology 06/09/24 INFORMATION SOURCE (unrecogn ized section and content) DATE CREATED AUTHOR 03/30/2022 [facility] DATE CREATED AUTHOR AUTHOR'S ORGANIZ ATION 06/08/2024 [facility] DATE CREATED AUTHOR AUTHOR'S ORGANIZ ATION 06/09/2024 [facility] FOR RECORDS PERTAINING TO PATIENTS WHO ARE OR HAVE BEEN ENROLLED IN A CHEMICAL DEPENDENCY/SUBSTANCEABUSE PROGRAM, SOME INFORMATION MAY BE OMITTED. This clinical summary was aggregated from multiple sources. Caution should be exercised in using it in the provision of clinical care. This summary normalizes information from multiple sources, and as a consequence, information in this document may materially change the coding, format and clinical context of patient data. In addition, data may be omitted in some cases. CLINICAL DECISIONS SHOULD BE BASED ON THE PRIMARY CLINICAL RECORDS. [facility] Enabled Employment [facility]. provides no warranty or guarantee of the accuracy or completeness of information in this document.
--- NOTE | 2024-06-13 03:29 | EDS_ITS ---
HPI History of Present Illness Chief Complaint: Dental Narrative Narrative: G3 29-week present increasing right upper molar pain worsening for last 2 days. Had issues for last month. Dental appointment this past Friday. Been using Tylenol. Hot and cold sensitivities. No fevers. Prior similar symptoms: Yes PFSH PFSH Medical History Nausea and vomiting during Postoperative pain History of depression Myocarditis History of pre-term labor depression Anxiety Depression Migraine History of delivery Home Medications ?Medication ?Instructions ?Recorded ?Last Taken ?Type vitamins-iron fumarate 65 1 tab PO DAILY 01/01/22 01/04/22 08:00 History mg iron-folic acid 1 mg tablet duloxetine 60 mg capsule,delayed 60 mg PO DAILY 01/31/24 Unknown History release doxylamine succinate 25 mg tablet 25 mg PO QHS PRN nausea and 02/01/24 Unknown Rx (Sleep Aid (doxylamine)) vomiting #30 tabs famotidine 20 mg tablet (Pepcid) 20 mg PO BID #60 tabs 02/01/24 Unknown Rx ondansetron 4 mg disintegrating 4 mg PO Q8H PRN nausea and 02/01/24 Unknown Rx tablet vomiting #60 tabs pyridoxine (vitamin B6) 50 mg 50 mg PO BID #60 tabs 02/01/24 Unknown Rx tablet promethazine 25 mg tablet 25 mg PO Q6H PRN nausea and 02/02/24 Unknown Rx vomiting #20 tabs penicillin V potassium 500 mg 500 mg PO 4X/DAY #40 tabs 06/13/24 Unknown Rx tablet Allergy/AdvReac Type Severity Reaction Status Date / Time No Known Allergies Allergy Verified 04/06/24 11:27 Surgical History Delivery by section [place] teeth removed Social History Smoking Status: Never smoker ROS ROS ED Constitutional Constitutional ED: Denies chills, fever(s) or sweats Eyes Eyes: Denies change in vision ENT ENT ED: Reports other Details: Dental pain ; Denies dysphagia or sore throat Cardiovascular Cardiovascular: Denies chest pain Respiratory/Chest Respiratory/Chest: Denies cough Gastrointestinal Gastrointestinal: Denies abdominal pain, diarrhea, nausea or vomiting Genitourinary Genitourinary ED: Denies dysuria, hematuria or urinary frequency Musculoskeletal Musculoskeletal: Denies back pain, extremity pain or neck pain Integumentary Denies rash or wounds Neurologic Neurologic: Denies headache(s) EXAM Physical Exam Const Vital Signs: 06/13/24 01:59 Temperature 98 F Temperature Source Oral Pulse Rate 85 Respiratory Rate 18 Blood Pressure 133/85 H Blood Pressure Mean 101 Pulse Ox 98 Oxygen Delivery Method Room Air Positive well nourished and well developed General Appearance ED: well developed and NAD HEENT Reports moist mucous membranes HEENT Narrative: Tender tooth percussion #3, no clear cavities noted. No gum fluctuance. No sublingual edema. Airway patent. normocephalic and atraumatic Eyes EOMs intact bilaterally and conjunctivae normal General Eye ED: Yes normal appearance of both eyes Neck no lymphadenopathy and supple General: Negative for tenderness Chest Wall Chest: Negative for tenderness Resp normal respiratory effort and normal air movement Effort and Inspection: symmetric chest movement; Negative for respiratory distress Cardio regular rate, regular rhythm and no murmurs Peripheral Pulses: pulses 2+ throughout GI GI Narrative: Gravid abdomen, nontender Palpation: Negative for guarding or rebound tenderness present Back/Spine no CVA tenderness and no thoracic nor lumbar tenderness Extremity normal to inspection General Extremety ED: Negative for edema or tenderness General Extremity: Negative for edema Neuro oriented x3 and no sensory deficits noted Sensorium / Orientation: awake and alert Skin no rashes or lesions noted and no wounds MDM MDM MDM Narrative Medical decision making narrative: Interventions / MDM: Differential diagnosis: Dentalgia, Diagnosis considered but do not suspect: N/A My EKG interpretation: N/A Imaging independently reviewed and interpreted by myself: N/A External documents reviewed: N/A Test considered but not ordered:N/A ED course: Increasing dentalgia tooth #3 no clear abscess. Hot and cold sensitivities. She is , discussed dental block for which she agreed. Meds to bed with penicillin. She will keep her dental appointment this coming Friday. She will continue Tylenol. Dental block: Verbal consent. Normal sterile conditions. 2 cc bupivacaine used with dental block syringe above tooth #3. Patient tolerated procedure well. No complications. Re-evaluation: stable Disposition discussed with patient/family/significant other: Case discussed with consulting clinician: N/A This note was generated with Dragon dictation software. It may contain incorrect words, spelling, and punctuation that were not noted in checking the note before signing. Discharge Plan Triage Chief Complaint: Dental ED Provider: Burton Freeman Dx/Rx/DC Orders Clinical Impression: Dentalgia, Instructions: ED Dental Pain Prescriptions: New penicillin V potassium 500 mg tablet 500 mg PO 4X/DAY Qty: 40 0RF No Action vit-iron fum-folic ac 65 mg iron- 1 mg Tablet 1 tab PO DAILY duloxetine 60 mg capsule,delayed release(DR/EC) 60 mg PO DAILY pyridoxine (vitamin B6) 50 mg Tablet 50 mg PO BID Qty: 60 3RF Sleep Aid (doxylamine) 25 mg tablet 25 mg PO QHS PRN (Reason: nausea and vomiting) Qty: 30 0RF ondansetron 4 mg tablet,disintegrating 4 mg PO Q8H PRN (Reason: nausea and vomiting) Qty: 60 2RF famotidine [Pepcid] 20 mg tablet 20 mg PO BID Qty: 60 4RF promethazine 25 mg tablet 25 mg PO Q6H PRN (Reason: nausea and vomiting) Qty: 20 0RF Primary Care Provider: Ramiro Aguirre Referrals: Ramiro Aguirre MD [Primary Care Provider] - Activity Restrictions/Additional Instructions: Take antibiotic as prescribed. Dental block performed in the ED. Continue Tylenol up to 1 g every 6 hours. Keep your follow-up with your dentist this Friday. Print Language: Slovak Disposition Disposition: Home, Self Care Discharge Date/Time: 06/13/24 03:45
== END 2024-06-13 03:45 | disposition home or self-care (01) ==
PROVIDERS: Emergency Provider Emergency Medicine; PCP Family Medicine; Visit Provider Emergency Medicine
DX: O99.613 Diseases of the digestive system complicating pregnancy, third trimester (principal); K08.89 Other specified disorders of teeth and supporting structures; O99.343 Other mental disorders complicating pregnancy, third trimester; F32.A Depression, unspecified; F41.9 Anxiety disorder, unspecified; Z3A.29 29 weeks gestation of pregnancy
CPT/HCPCS: 64400; 64999; 99282

== ENCOUNTER 2024-08-17 22:00 | Inpatient (IN) | payer OTHER, BC, SELFPAY ==
[2024-08-17 20:55] VITALS: BMI 34.6
[2024-08-17 21:04] VITALS: BP 138/75; PULSE 53; RESP 16; TEMP 36.8
[2024-08-17 21:05] VITALS: PULSE 65; O2SAT 99
[2024-08-17] MEDS: Lactated Ringers 1,000 ML 999 ML IV (22:30)
[2024-08-17 22:41] VITALS: BP 143/88; PULSE 71; RESP 16; TEMP 36.2; O2SAT 98
[2024-08-17 22:42] VITALS: PULSE 71; O2SAT 99
[2024-08-17 22:46] VITALS: PULSE 70; O2SAT 98
[2024-08-17 22:47] LABS: Absolute Lymphocyte Count 3.11 X10^3/uL (0.83-4.51); Absolute Neutrophil Count 7.3 X10^3/uL (2.0-7.7); Basophil# 0.03 X10^3/uL; Basophil% 0.3 % (0-1); Eosinophil# 0.07 X10^3/uL; Eosinophils% 0.6 % (0-5); Hematocrit 28.3 % (37-47); Hemoglobin 8.1 g/dL (12.0-15.0); Lymphocyte # 3.11 X10^3/ul (0.83-4.51); Lymphocyte % 27.3 % (19-41); Mean Corp Hgb Conc 28.6 g/dL (32-36); Mean Corpuscular Hgb 19.3 pg (27.0-32.0); Mean Corpuscular Volume 67.5 fL (81-99); Mean Platelet Vol. 10.6 fl (6.2-12.0); Monocyte# 0.67 X10^3/uL; Monocyte% 5.9 % (0-10); NRBC Flagged by Analyzer 0.8 % (0-5); Neutrophil # 7.34 X10^3/uL (2.7-7.7); Neutrophil % 64.5 % (47-70); Platelet Count 319 K/mm3 (150-450); RBC Distribution Width CV 17.7 % (11.6-14.6); RBC Distribution Width SD 41.9 fl (35.1-43.9); Red Blood Count 4.19 M/mm3 (4.2-5.4); White Blood Count 11.4 K/mm3 (4.4-11.0)
--- NOTE | 2024-08-17 22:56 | HP.PCM.OB_ITS ---
HPI - General General Date of Admission: 08/17/24 Date of Service: 08/17/24 Chief Complaint: contractions HPI Narrative QUE JEONG, is a 28 F who presents with contractions all day. Getting closer and and stronger. Previous at 36 weeks. Plans repeat with tubal 3 cm contractions q 2-5 minutes Maternal Data Information Final RADHA: 09/08/24 Gestational age: 36+6 [facility] Medical History (Updated 08/17/24 @ 23:[address] Bibiana Weathers MD) 36 weeks gestation of History of pre-term labor Nausea and vomiting during Postoperative pain History of depression Myocarditis History of pre-term labor depression Anxiety Depression Migraine History of delivery Home Medications ?Medication ?Instructions ?Recorded ?Last Taken ?Type vitamins-iron fumarate 65 1 tab PO DAILY 01/01/22 01/04/22 08:00 History mg iron-folic acid 1 mg tablet duloxetine 60 mg capsule,delayed 60 mg PO DAILY 01/31/24 Unknown History release doxylamine succinate 25 mg tablet 25 mg PO QHS PRN nausea and 02/01/24 Unknown Rx (Sleep Aid (doxylamine)) vomiting #30 tabs famotidine 20 mg tablet (Pepcid) 20 mg PO BID #60 tabs 02/01/24 Unknown Rx ondansetron 4 mg disintegrating 4 mg PO Q8H PRN nausea and 02/01/24 Unknown Rx tablet vomiting #60 tabs pyridoxine (vitamin B6) 50 mg 50 mg PO BID #60 tabs 02/01/24 Unknown Rx tablet promethazine 25 mg tablet 25 mg PO Q6H PRN nausea and 02/02/24 Unknown Rx vomiting #20 tabs penicillin V potassium 500 mg 500 mg PO 4X/DAY #40 tabs 06/13/24 Unknown Rx tablet Allergy/AdvReac Type Severity Reaction Status Date / Time No Known Allergies Allergy Verified 08/17/24 21:09 Surgical History (Updated 08/17/24 @ 22:[address] Bibiana Weathers MD) History of surgery Previous section Delivery by section [place] teeth removed Social History Smoking Status: Never smoker History 3 Elective abortions Hx Para 2 Spontaneous abortions Hx # Term Pregnancies 0 Ectopic pregnancies Hx # Pregnancies 2 Multiple births # of living children 2 NST FHR Rate Baby A Baseline: 125 Variability:: Moderate Accelerations:: 15 x 15 Decelerations:: None NST Reactive:: Yes FHR Category:: Category I Uterine Activity:: q 2-5 ROS Constitutional Constitutional: Denies fatigue, fever(s) or malaise Eyes Eyes: Denies change in vision ENT HEENT: Denies dizziness or headache(s) Cardiovascular Cardiovascular: Denies chest pain, dyspnea or lightheadedness Respiratory/Chest Respiratory/Chest: Denies cough or dyspnea Gastrointestinal Gastrointestinal: Denies change in bowel habits Genitourinary Genitourinary: Denies burning urination or genital lesions Integumentary Integumentary: Denies rash Neurologic Neurologic: Denies confusion, dizziness, headache(s), numbness or weakness Vital Signs Vital Signs Vital Signs: 08/17/24 21:04 08/17/24 21:04 08/17/24 21:04 Temperature Temperature Source Temporal Pulse Rate 53 L Respiratory Rate Blood Pressure 138/75 H Blood Pressure Mean BP Systolic 138 BP Diastolic 75 Blood Pressure Source Blood Pressure Position Blood Pressure Location Pulse Ox Oxygen Delivery Method 08/17/24 21:04 08/17/24 21:04 08/17/24 21:05 Temperature 98.3 F Temperature Source Pulse Rate 65 Respiratory Rate 16 Blood Pressure Blood Pressure Mean BP Systolic BP Diastolic Blood Pressure Source Blood Pressure Position Blood Pressure Location Pulse Ox Oxygen Delivery Method 08/17/24 21:05 08/17/24 22:41 08/17/24 22:41 Temperature Temperature Source Pulse Rate 71 Respiratory Rate Blood Pressure 143/88 H Blood Pressure Mean BP Systolic 143 BP Diastolic 88 Blood Pressure Source Blood Pressure Position Blood Pressure Location Pulse Ox 99 Oxygen Delivery Method 08/17/24 22:41 08/17/24 22:41 08/17/24 22:41 Temperature 97.2 F L Temperature Source Temporal Pulse Rate Respiratory Rate 16 Blood Pressure Blood Pressure Mean BP Systolic BP Diastolic Blood Pressure Source Blood Pressure Position Blood Pressure Location Pulse Ox Oxygen Delivery Method 08/17/24 22:41 08/17/24 22:42 08/17/24 22:42 Temperature 97.2 F L Temperature Source Temporal Pulse Rate 71 71 Respiratory Rate 16 Blood Pressure 143/88 H Blood Pressure Mean 106 BP Systolic BP Diastolic Blood Pressure Source Monitor Blood Pressure Position Semi-Fowlers Blood Pressure Location Left Arm Pulse Ox 98 99 Oxygen Delivery Method Room Air 08/17/24 22:46 08/17/24 22:46 Temperature Temperature Source Pulse Rate 70 Respiratory Rate Blood Pressure Blood Pressure Mean BP Systolic BP Diastolic Blood Pressure Source Blood Pressure Position Blood Pressure Location Pulse Ox 98 Oxygen Delivery Method Weight Weight: 85.8 kg Body Mass Index (BMI) 34.6 Physical Exam Const alert and no apparent distress General Appearance: cooperative HEENT normocephalic Resp normal respiratory effort Cardio regular rate GI soft to palpation GI Narrative: gravid, nontender, appropriate for gestational age Extremity no calf tenderness General Extremity: edema Skin no wounds Rashes: No rashes noted Psych activity/motor behavior normal Labs Labs Labs: Blood Type A POSITIVE Antibody Screen NEGATIVE Hct 28.3 % (37-47) L Hgb 8.1 g/dL (12.0-15.0) L Syphilis Total Ab Pending Group B Strep DNA Negative (Negative) Rhogam given: No Assessment & Plan (1) Previous section: PLAN: Plan for repeat (2) 36 weeks gestation of : (3) Uterine contractions during : COMMENT: Increasing intensity and frequency (4) Sterilization: PLAN: Desires tubal PLAN: Plan Repeat with tubal.
[2024-08-17 23:07] LABS: Amphetamine Urine VISTA NEGATIVE (<1000 ng/mL); Barbiturate Urine VISTA NEGATIVE (< 200 ng/mL); Benzodiazepine Urine VISTA NEGATIVE (< 200 ng/mL); Cocaine Urine VISTA NEGATIVE (< 300 ng/mL); Ecstacy Urine VISTA NEGATIVE (< 500 ng/mL); Methadone Urine VISTA NEGATIVE (< 300 ng/mL); PCP Urine VISTA NEGATIVE (< 25 ng/mL); THC Urine VISTA POSITIVE (< 50 ng/mL); Vista UDS pH Range 5
[2024-08-17] MEDS: Acetaminophen 500 MG Tablet 1000 MG PO (23:13)
[2024-08-17 23:24] LABS: Syphilis Antibodies Non-reactive
[2024-08-17] MEDS: Iron Sucrose Complex 200 MG in 0.9% Normal Saline (100mL Bag) 100 ML 220 MG IV (23:40)
[2024-08-17] MEDS: Sodium Citrate/Citric Acid 30 ML UDC PO (23:43)
[2024-08-18] VITALS (17 sets, daily range): BP systolic 106–143; BP diastolic 47–88; PULSE 62–78; RESP 14–22; TEMP 36.1–36.6; O2SAT 94–100
[2024-08-18] MEDS: Cefazolin 2 GM in Syringe IV (00:01)
--- NOTE | 2024-08-18 00:17 | FALS_PTH ---
PATIENT: QUE JEONG LOC: [facility] U#:[id number] AGE/SX: 28/F ROOM: WP006 RE08/17/[address]: Dr. Bibiana Weathers MD : 1995 BED: 1 DIS: 08/19/2024 SPEC #: [id number] RECD: 08/19/24 02:50 STATUS: VELMA REJenny #: [id number] SUNNI: 08/18/24 00:[address]: Bibiana Weathers DEPT: SURGICAL PATHOLOGY RECD BY: Cristina Cotton ENTERED: 08/19/24 07:35 SP TYPE: FALL TUBES OTHR DR: Dr. Ramiro Aguirre MD Tissues: Fallopian tube Procedures: Surgery Specimen Level II HEADER OPERATION: Tubal ligation with repeat section PRE-OP DIAGNOSIS: Tubal ligation TISSUE SUBMITTED: Bilateral fallopian tubes MICROSCOPIC DIAGNOSIS Bilateral fallopian tubes, salpingectomy: Bilateral fallopian tubes, no pathologic diagnosis. SJ: 08/20/2024 MICROSCOPIC DESCRIPTION Slides are reviewed. GROSS DESCRIPTION Received in fixative is one container labeled with the patient's name and designated bilateral fallopian tubes. The specimen consists of bilateral fallopian tubes including fimbrial ends measuring 6.0 cm in length and 1.0 cm in diameter and 5.0cm in length and 1.0cm in diameter. The fallopian tubes are not identified as right or left. Sections reveal unremarkable cut surfaces. Bilingual Case Manager sections are submitted in two cassettes with each cassette containing one fallopian tube. / REX: 08/19/2024 TC:4 CPT: 05633 x2
--- NOTE | 2024-08-18 00:52 | OP.PCM_ITS ---
Assessment & Plan (1) Sterilization: (2) Previous section: (3) S/P : Maternal Data Information Final RADHA: 09/08/24 Gestational age: 37 Operative Report (OB) Cecarean Details Procedure Type: low transverse (with bilateral salpingectomy) Date of Procedure: 08/18/24 Procedure Start Time: 00:13 Procedure Stop Time: 00:57 Time of Delivery: 00:17 Pre-Operative Diagnosis: Repeat Elective and Desires elective sterilization Post-Operative Diagnosis: Same as Pre-operative diagnosis Classification: JEFERSON Type of Anesthesia: Spinal Antibiotic Given: Ancef 2 grams IV x1 Drain: Andrew to straight drain Estimated Blood Loss: 1000 cc Fluids Replaced: 1000 cc Findings Description of surgery: Patient presented with frequent painful contractions and 3 cm with a previous c- section and declining TOLAC. Patient was taken to the OR where spinal anesthesia was placed. A Andrew was placed in her bladder. She was prepped and draped in the normal sterile fashion. A Pfannenstiel incision was made and carried down to the underlying fascia. The fascia was incised in the midline and extended laterally. The fascia was dissected from the muscle. The muscles divided in the midline. The peritoneum was entered bluntly and extended manually. A bladder blade was placed. A bladder flap was created. A low transverse incision was made and extended bluntly. The head was elevated to the incision. The shoulders delivered easily. There was a cord around the neck x 1. The infant cried upon delivery. The cord was cut and clamped. The placenta was delivered with zarina traction. The uterus was exteriorized and cleared of all clot and debris. The incision was repaired with 1-0 Vicryl x 2. The LigaSure was used to transect the mesosalpinx of both fallopian tubes Removing the tubes from the fimbriated end to the c ornua. Hemostasis was obtained. The uterus was returned the abdomen. The gutter cleared of all clots. The peritoneum was closed with 2-0 Monocryl. The fascia was closed with 1-0 Vicryl. The subcutaneous tissue was reapproximated with 2-0 Monocryl The skin was closed with 4-0. I performed the major parts of the procedure with the RFNA assisting with retraction and closing the skin. The sponge lap and needle count was correct x 2 Surgical findings: normal uterus tubes and ovaries. CAN x 1 Presentation: Vertex Amniotic Membrane Rupture Type: Artificial Amniotic Fluid Description: Clear Placental Delivery Description: Expressed and Manual Removal Placenta Disposition: [facility] Specimen collected: Yes Description of specimen(s) removed: fallopian tubes Cord Vessel Description: 3 Vessels Cord Entanglement: Around neck x 1, loose Nuchal Cord Compression: Without compression Infant A gender: Male (1 minute): 9 (5 minute): 9 Delayed Cord Clamping: Yes Licensed Real Estate Broker inspector pawnshop detail: Yes Public Health Veterinarian: Lucas Dominguez Tasks completed by machinist first class: Opening & closing and Retracting Additional assistant paralegal?: No Complications Complications: No
[2024-08-18] MEDS: Oxytocin 15 Units/NS 250ml 15 UNITS/250 ML IV.SOLN 83 UNITS IV (01:10)
[2024-08-18] MEDS: DiphenhydrAMINE 25 MG Capsule PO (02:00)
[2024-08-18] MEDS: Ketorolac 30 MG/ML Syringe IV ×4 (02:00→19:54)
[2024-08-18] MEDS: Lactated Ringers 1,000 ML 100 ML IV (02:00)
[2024-08-18 02:53] LABS: Pathology Specimen OB SEE PATHOLOGY REPORT
[2024-08-18] MEDS: Acetaminophen 500 MG Tablet 1000 MG PO ×3 (05:17→17:41)
[2024-08-18] MEDS: 0.9% Saline Lock 10 ML Syringe IV ×2 (08:30→13:53)
[2024-08-18 08:54] LABS: Hematocrit 23.7 % (37-47); Hemoglobin 6.9 g/dL (12.0-15.0); Mean Corp Hgb Conc 29.1 g/dL (32-36); Mean Corpuscular Hgb 19.5 pg (27.0-32.0); Mean Corpuscular Volume 66.9 fL (81-99); Mean Platelet Vol. 11.2 fl (6.2-12.0); Platelet Count 257 K/mm3 (150-450); RBC Distribution Width CV 17.5 % (11.6-14.6); RBC Distribution Width SD 41.7 fl (35.1-43.9); Red Blood Count 3.54 M/mm3 (4.2-5.4)
[2024-08-18] MEDS: Ferrous Sulfate 325 MG Tablet PO (12:13)
[2024-08-18] MEDS: Senna/Docusate Sodium 1 Tablet PO (12:13)
[2024-08-19 00:07] VITALS: BP 114/65; PULSE 65; RESP 15; TEMP 35.9; O2SAT 98
[2024-08-19] MEDS: Acetaminophen 500 MG Tablet 1000 MG PO ×3 (01:11→12:03)
[2024-08-19] MEDS: oxyCODONE 5 MG Tablet PO ×2 (02:06→08:20)
[2024-08-19 05:27] VITALS: BP 112/66; PULSE 68; RESP 16; TEMP 36.3; O2SAT 97
[2024-08-19 05:35] LABS: Absolute Lymphocyte Count 3.63 X10^3/uL (0.83-4.51); Absolute Neutrophil Count 10.3 X10^3/uL (2.0-7.7); Basophil# 0.03 X10^3/uL; Basophil% 0.2 % (0-1); Eosinophil# 0.08 X10^3/uL; Eosinophils% 0.5 % (0-5); Hematocrit 23.8 % (37-47); Hemoglobin 6.9 g/dL (12.0-15.0); Lymphocyte # 3.63 X10^3/ul (0.83-4.51); Lymphocyte % 23.2 % (19-41); Mean Corpuscular Hgb 19.7 pg (27.0-32.0); Mean Platelet Vol. 10.7 fl (6.2-12.0); Monocyte# 1.15 X10^3/uL; Monocyte% 7.4 % (0-10); NRBC Flagged by Analyzer 1.3 % (0-5); Neutrophil # 10.25 X10^3/uL (2.7-7.7); Neutrophil % 65.5 % (47-70); Platelet Count 292 K/mm3 (150-450); RBC Distribution Width CV 17.8 % (11.6-14.6); RBC Distribution Width SD 42.3 fl (35.1-43.9); White Blood Count 15.6 K/mm3 (4.4-11.0)
[2024-08-19] MEDS: Ibuprofen 600 MG Tablet PO ×2 (07:53→13:57)
[2024-08-19 07:55] VITALS: BP 119/72; PULSE 95; RESP 18; TEMP 36.7; O2SAT 98
--- NOTE | 2024-08-19 08:42 | PCM.PN.OB ---
Subjective Subjective Pain controlled Objective Data Objective Data Vital Signs: Vital Signs Temp Pulse Resp BP Pulse Ox O2 Del Method 97.3 F L 68 16 112/66 97 Room Air 08/19/24 05:27 08/19/24 05:27 08/19/24 05:27 08/19/24 05:27 08/19/24 05:27 08/19/24 05:27 Oxygen Delivery Method Room Air Weight: 189 lb 2.506 oz Body Mass Index (BMI) 34.6 Intake & Output: Intake and Output for Last 24 Hours 08/17/24 08/18/24 08/19/24 23:59 23:59 23:59 Intake Total 1000 / 1073.33 981.67 / 981.67 Output Total 1850 / 1850 Balance 1000 / 1073.33 -868.33 / -868.33 Lab / Micro Data 08/19/24 05:30 Labs: Laboratory Results - last 24 hr 08/18/24 08:15: WBC 16.0 H, RBC 3.54 L, Hgb 6.9 L, Hct 23.7 L, MCV 66.9 L, MCH 19.5 L, MCHC 29.1 L, RDW Std Deviation 41.7, RDW Coeff of Macy 17.5 H, Plt Count 257, MPV 11.2 08/19/24 05:30: WBC 15.6 H, RBC 3.50 L, Hgb 6.9 L, Hct 23.8 L, MCV 68.0 L, MCH 19.7 L, MCHC 29.0 L, RDW Std Deviation 42.3, RDW Coeff of Macy 17.8 H, Plt Count 292, MPV 10.7, Immature Gran % (Auto) 3.200 H, Neut % (Auto) 65.5, Lymph % (Auto) 23.2, [place] % (Auto) 7.4, Eos % (Auto) 0.5, Baso % (Auto) 0.2, Absolute Neuts (auto) 10.3 H, Absolute Lymphs (auto) 3.63, Nucleated RBC % 1.3 Physical Exam Const alert, oriented x3 and no apparent distress HEENT normocephalic GI soft to palpation, non-tender and non-distended GI Narrative: fundus firm, mid & below umbilicus Incision - bandage c/d/i Extremity normal to inspection and no calf tenderness Assessment & Plan (1) S/P : (2) Anemia: QUALIFIERS: Anemia type: iron deficiency Iron deficiency anemia type: unspecified iron deficiency Qualified Code(s): D50.9 - Iron deficiency anemia, unspecified COMMENT: chronic anemia of PLAN: Plan Heme - HDS. Patient with chronic anemia. COntinue PO iron GI/ - no issues Plan for d/c home later today per patient request
--- NOTE | 2024-08-19 08:44 | DS.PCM_ITS ---
Providers Date of Admission: 08/17/24 Date of Discharge: 08/19/24 Primary Care Physician: Dr. Ramiro Aguirre MD Reason For Visit: LABOR-REPEAT C SECTION Diagnosis Discharge Diagnosis (1) S/P : Status: Acute Code(s): Z98.891 - History of uterine scar from previous surgery (2) Anemia: Status: Acute Code(s): D64.9 - Anemia, unspecified Qualifiers: Anemia type: iron deficiency Iron deficiency anemia type: unspecified iron deficiency Qualified Code(s): D50.9 - Iron deficiency anemia, unspecified Plan Heme - HDS. Patient with chronic anemia. COntinue PO iron GI/ - no issues Plan for d/c home later today per patient request Medications at Discharge Home Medications vitamins-iron fumarate 65 mg iron-folic acid 1 mg tablet 1 tab PO DAILY 01/01/22 famotidine 20 mg tablet (Pepcid) 20 mg PO BID #60 tabs 02/01/24 acetaminophen 500 mg tablet 1,000 mg (2 x 500 mg) PO Q6 #0 tabs 08/19/24 ferrous sulfate 325 mg (65 mg iron) tablet (FeroSul) 325 mg PO DAILY@1200 #0 tabs 08/19/24 ibuprofen 600 mg tablet 600 mg PO Q6H #0 tabs 08/19/24 Hospital Course Operations section Summary of Care Provided Minutes Spent on Discharge: 15 Weight / BMI Weight Weight: 189 lb 2.506 oz Body Mass Index (BMI) 34.6 ABG / Lab / Microbiology Data 08/19/24 05:30 Laboratory: Laboratory Results - last 24 hr 08/18/24 08:15: WBC 16.0 H, RBC 3.54 L, Hgb 6.9 L, Hct 23.7 L, MCV 66.9 L, MCH 19.5 L, MCHC 29.1 L, RDW Std Deviation 41.7, RDW Coeff of Macy 17.5 H, Plt Count 257, MPV 11.2 08/19/24 05:30: WBC 15.6 H, RBC 3.50 L, Hgb 6.9 L, Hct 23.8 L, MCV 68.0 L, MCH 19.7 L, MCHC 29.0 L, RDW Std Deviation 42.3, RDW Coeff of Macy 17.8 H, Plt Count 292, MPV 10.7, Immature Gran % (Auto) 3.200 H, Neut % (Auto) 65.5, Lymph % (Auto) 23.2, [place] % (Auto) 7.4, Eos % (Auto) 0.5, Baso % (Auto) 0.2, Absolute Neuts (auto) 10.3 H, Absolute Lymphs (auto) 3.63, Nucleated RBC % 1.3 D/C Instructions Discharge Diet: No restrictions Discharge Activity: May Shower May resume sexual activity in: 6 weeks Weight Bearing Status: Weight bearing as tolerated Call your doctor if your incision/area has: Continuous Slow Oozing, Sudden Increased Bleeding, Increased Pain/ Swelling, Increased Redness, Foul Smelling Discharge and Swelling at the incision site Call your doctor if you observe: Fever of 101 or Higher, Coldness, Increased Pain, Change in Color, Inability to urinate, Inability to have a bowel movement, Using more than 1 pad per hour, Shortness of breath, Dizziness, Fainting spells, Chest pain, Increased palpitations (irregular heartbeat), Calf discomfort and Uncontrolled pain Suture Line Care: Avoid Pulling/Pushing and Avoid Pinching/Bending Remove Dressing in: 1 week Cleanse incision/area with: Soap & Water DC O2, CPAP, BIPAP Needs Home O2 Discharge instructions: No Please Follow Up With: Bibiana Weathers MD When: Follow up in 2 and 6 weeks for visits. Meaningful Use Info Meaningful Use Meaningful Use Diagnoses (Choose all that apply): None applicable Ischemic Stroke Statin Dosing Therapy Reference: STATIN DOSE THERAPY REFERENCE: * Patients > 75 years receive moderate or high dose statin therapy. * Patients 75 years or YOUNGER should receive HIGH intensity statin dose unless contraindicated. You will be required to document reason for non-treatment if statin daily dose does not meet guidelines. HIGH DOSE STATIN THERAPY DAILY Atorvastatin > than or = to 40 mg Rosuvastatin > than or = to 20 mg Amlodipine + Atorvastatin > than or = to 2.5/40 mg Ezetimibe + Simvastatin 10/80 mg Simvastatin 80mg Discharge Plan Admission Admit Date/Time: 08/17/24 22:00 Primary Reason for Your Visit: section Attending Provider: Bibiana Weathers Primary Care Provider: Ramiro Aguirre Discharge Orders/Prescriptions Prescriptions: New acetaminophen 500 mg Tablet 1,000 mg PO Q6 Qty: 0 0RF ferrous sulfate [FeroSul] 325 mg (65 mg iron) Tablet 325 mg PO DAILY@1200 Qty: 0 0RF ibuprofen 600 mg Tablet 600 mg PO Q6H Qty: 0 0RF Continued vit-iron fum-folic ac 65 mg iron- 1 mg Tablet 1 tab PO DAILY famotidine [Pepcid] 20 mg tablet 20 mg PO BID Qty: 60 4RF Discontinued duloxetine 60 mg capsule,delayed release(DR/EC) 60 mg PO DAILY pyridoxine (vitamin B6) 50 mg Tablet 50 mg PO BID Qty: 60 3RF Sleep Aid (doxylamine) 25 mg tablet 25 mg PO QHS PRN (Reason: nausea and vomiting) Qty: 30 0RF ondansetron 4 mg tablet,disintegrating 4 mg PO Q8H PRN (Reason: nausea and vomiting) Qty: 60 2RF promethazine 25 mg tablet 25 mg PO Q6H PRN (Reason: nausea and vomiting) Qty: 20 0RF penicillin V potassium 500 mg tablet 500 mg PO 4X/DAY Qty: 40 0RF Referrals / Follow Up: Ramiro Aguirre MD [Primary Care Provider] - Disposition Disposition (needs filled in before D/C Order can be placed): Home, Self Care
--- NOTE | 2024-08-19 09:55 | CASEMGMT ---
Social Work Assessment Labor and Delivery Unit Patient Address:[place] [address] Phone number: [phone] Date of Referral: 08/17/24 Time of Referral: 2200 Referred By: Dr. Weathers Date of Intervention: 08/19/24 Time of Intervention: 839 Reason for Referral: mental health, substance abuse Sw completed chart review and acknowledges social work consult due to maternal mental health history and maternal THC use during . Sw presented to bedside and introduced self to mother of baby (KHUSHBOO- Kimberly) and father of baby (JUDI- Tanvir). Sw explained reason for sw involvement and completed psychosocial assessment. History obtained from: medical records, MOB and JUDI. Household composition:Currently residing in the family home is JUDI CUELLO, their two older children: Tramaine (4) and Tanvir (2). JUDI has an 8 year old daughter, Ev, who also lives with parents. [place] baby to be added to residence when ready for discharge. Parents deny any housing concerns, stating that it is safe and secure. Patient's parent/guardian status: KHUSHBOO states that she and JUDI met in high school and have been together for 5 years. This is third baby for parents together. No concerns reported of domestic violence or intimate partner violence. Medical History: KHUSHBOO is 28 year old female who is 3, para 2- now 3 following labor and delivery of . KHUSHBOO received routine care during with [facility]. KHUSHBOO presented to hospital and required JEFERSON and delivered baby on 08/18/24 at 37 weeks gestation. Baby boy, named Saleem Garza, was born weighing 7lb 15oz with apgars of 9 and 9 at one and five minutes of life, respectfully. KHUSHBOO states that she is and it is going well. Educational Status: Both parents graduated from high school and deny any problems with reading, learning or comprehension. Financial Status: Both parents are gainfully employed outside of the home. 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 KHUSHBOO works at [employer] and is able to have 8 weeks off of work for maternity leave. Supplies: Parents have obtained all necessary baby supplies, including: car seat, safe sleep space, clothes, diapers and wipes. Childcare/Caregiver(s): KHUSHBOO will be the primary caregiver to baby, along with FOB. When both parents are working and older siblings will be in daycare. Transportation: Both parents have their drivers license and reliable means of transportation. Programs/Agencies Involved: Parents are connected to resources through [facility], including food benefits. MOB is also connected to [facility]. Children Services/Legal Issues: JUDI states that he made a report against his ex for concerns regarding uncleanliness of their daughter. MOB states that her father filed false allegations against her and FOB last October. Children Services came to their home and determined the allegations were false and closed the case. - Sw informed MOB that sw will need to make referral to Children Services due to maternal THC use during . MOB expressed understanding. Behavioral Health Issues: Mental Health History: JUDI reports that he has been diagnosed with Bipolar disorder. He was previously prescribed medications but no longer needs them to help manage his symptoms. FOB states that he has learned how to recognize triggers and knows that he needs to talk to people instead of shutting down, which is what he used to do. MOB states that she has been diagnosed with anxiety, depression and depression with her first and second babies. MOB states that her first baby was born two months early and transferred right away to NICU Main campus. MOB states that when they were discharged from the NICU and transitioned to home she started to struggle with depression. KHUSHBOO got connected to mental health supports through [facility] and is prescribed medication, duloxetine and trazodone. MOB states that she stopped taking her duloxetine during and she feels well managed. MOB states that going into this period she plans on just waiting to see how she feels and work with her counselor before restarting the medication. Substance Use History: KHUSHBOO admits to using THC gummies one- two times a week to help with nausea and sleep. MOB states that she does not have intentions on continuing to use now that baby has been born, and she really wants to continue to breastfeed. FOB denies substance use. Family History: FOB and MOB disclose that their fathers have history of alcoholism. Drug Screens: MOB urine screen was positive for THC, baby urine was negative, meconium pending. Family/Social Stressors: Parents deny any issues, concerns or stressors at this time. Support Systems: MOB states that both sets of grandparents are supportive. Depression/Shaken Baby/Safe Sleeping: Sw educated parents on signs and symptoms of baby blues and mood and anxiety symptoms to be on the lookout for. Parents express understanding. FOB states that he would be able to recognize if MOB were struggling and would know how to help and support her. FOB states that MOB struggled with her mental health really bad after their first son was born, but not as bad with their second. Both parents state that they are hoping that MOB does not struggle this time with her mental health. Parents state that if MOB does struggle, she has safety nets in place with her outpatient therapist, and is open to starting her medication again if necessary. Sw educated parents to shaken baby prevention and ABCs of safe sleep. Parents express understanding. ASSESSMENT: MOB and baby admitted following labor and delivery of . This is third baby for MOB, and fourth for FOB. KHUSHBOO has history of depression following her other two pregnancies. MOB is connected to mental health services and supports. MOB was talkative and engaging throughout completion of assessment. Both parents were observed to provide loving and appropriate hands on care to baby. KHUSHBOO acknowledges that victor m needs to make referral to Children Services due to her use of THC gummies during . Parents have obtained all necessary baby supplies and have natural supports in place. Safe Plan of Care for related to substance use: KHUSHBOO reports that she does not have intentions on continuing to use THC now that baby has been born. Risks of continuing to use THC and still breastfeed discussed with parents. PLAN: List of [facility], mood and anxiety disorders descriptions provided to MOB. Handouts regarding shaken baby prevention and ABCs of safe sleep provided, along with Help Me Grow. MOB and baby to be discharged when medically ready. No other services requested or indicated. Yady Staples, HONING MACHINE SET UP OPERATOR, [employer]
[2024-08-19] MEDS: Senna/Docusate Sodium 1 Tablet PO (10:24)
[2024-08-19] MEDS: Ferrous Sulfate 325 MG Tablet PO (12:03)
[2024-08-19 13:00] VITALS: BP 125/76; PULSE 76; RESP 18; TEMP 36.4; O2SAT 97
== END 2024-08-19 14:30 | disposition home or self-care (01) | DRG 785 ==
LOC: WPOUT 22:07 → WP 22:07
PROVIDERS: Advanced Practice Midwife; Admitting Provider Obstetrics & Gynecology; PCP Family Medicine; Referring Provider Obstetrics & Gynecology; Visit Provider Obstetrics & Gynecology
DX: O99.02 Anemia complicating childbirth (principal); D50.9 Iron deficiency anemia, unspecified; F32.A Depression, unspecified; F41.9 Anxiety disorder, unspecified; O99.344 Other mental disorders complicating childbirth; O34.219 Maternal care for unspecified type scar from previous cesarean delivery; Z3A.36 36 weeks gestation of pregnancy; Z37.0 Single live birth; Z79.899 Other long term (current) drug therapy; Z30.2 Encounter for sterilization; O69.81X0 Labor and delivery complicated by cord around neck, without compression, not applicable or unspecified
CPT/HCPCS: 59025; 59050; 80307; 85025; 85027; 86780; 86850; 86900; 86901; 88302; 99221; J1756; A4216; G0378

== ENCOUNTER 2025-04-14 05:06 | Emergency (ER) | payer OTHER, SELFPAY ==
[2025-04-14 05:07] VITALS: BP 138/81; PULSE 51; RESP 14; TEMP 36.4; O2SAT 100; BMI 25.5
--- NOTE | 2025-04-14 05:08 | EDS_ITS ---
HPI History of Present Illness Chief Complaint: Dental [facility] Medical History (Updated 08/27/24 @ 00:02 by Background Daemon) Sterilization 36 weeks gestation of History of pre-term labor Nausea and vomiting during Postoperative pain History of depression Myocarditis History of pre-term labor depression Anxiety Depression Migraine History of delivery Home Medications ?Medication ?Instructions ?Recorded ?Last Taken ?Type amoxicillin 875 mg-potassium 1 tab PO BID 7 days #14 t abs 04/14/25 Unknown Rx clavulanate 125 mg tablet Allergy/AdvReac Type Severity Reaction Status Date / Time No Known Allergies Allergy Verified 04/14/25 05:13 Surgical History (Updated 08/27/24 @ 00:02 by Background Daemon) S/P History of surgery Previous section Delivery by section Abbott teeth removed Social History Smoking Status: Never smoker EXAM Physical Exam Const Vital Signs: 04/14/25 05:07 Temperature 97.5 F L Temperature Source Temporal Pulse Rate 51 L Respiratory Rate 14 Blood Pressure 138/81 H Blood Pressure Mean 100 Pulse Ox 100 Oxygen Delivery Method Room Air [facility] MDM MDM Narrative Medical decision making narrative: HISTORY OF PRESENT ILLNESS: 29-year-old female presents with dental pain. She states this occurred 2 weeks ago. Notes worsening pain over the last 24 hours. Notes left lower molar as a source of pain. Denies difficulty swallowing, drooling. Denies difficulty hearing. Denies submandibular edema or swelling. Denies sore throat. REVIEW OF SYSTEMS: Pertinent positives: Dental pain Pertinent negatives: As per HPI PHYSICAL EXAM: Nursing triage notes reviewed, Vital signs reviewed Constitutional: please see mdm HENT: MMM, no evidence of dental abscess, no submandibular edema or induration, no tonsillar exudates or erythema, uvula midline, patient was controlling secretions, no drooling, no trimus, no dysphonia. Complete dental erosion and left lower molar tooth #17 Eyes: Pupils equal round and reactive to light, Extraocular muscles intact Neck: No stridor, no JVD, full neck ROM Lungs: Clear to auscultation, No wheezing or rales. No increased work of breathing, no conversational dyspnea, no accessory muscle use, no nasal flaring. No respiratory distress noted Heart: Regular rate and rhythm, No murmurs, No rubs and No gallops, 2+ distal pulses (radial, femoral, posterior tibial) in all extremities MEDICAL DECISION MAKING: Chief Complaint: Dental pain External records reviewed: Reviewed PDMP Factors affecting care: None Social determinants of health: Denies History obtained from others: Consults: None [facility] Narrative: The patient was hemodynamically stable, afebrile, nontoxic-appearing. Exam consistent with tooth #17 erosion. No sign of dental abscess. No submandibular edema, stridor or difficulty swallowing. No sign of tonsillar erythema or edema. I considered the following differential diagnosis: Dental abscess, ANUG, Ludewig's angina, RPA, FAN INSTALLER, dental caries, gingivitis The patient's physical exam was not consistent with dental abscess or other emergency dental condition. She will require antibiotics and dental follow-up. Shared decision making: I will have a discussion with the patient and or visitors regarding risk/benefits of further testing or admission. They will be made aware of of the risk/benefits inherent in this decision they will be given the opportunity to voice understanding. Impression: 1. Acute dental pain 2. Dental caries Disposition: Discharge home This note was generated with [employer] dictation software. It may contain incorrect words, spelling, and punctuation that were not noted in review of the chart prior to signing. Discharge Plan Triage Chief Complaint: Dental ED Provider: Eliseo Wick Dx/Rx/DC Orders Instructions: ED Dental Pain Prescriptions: New amoxicillin-pot clavulanate 875-125 mg tablet 1 tab PO BID 7 Days Qty: 14 0RF Primary Care Provider: Ramiro Aguirre Referrals: Ramiro Aguirre MD [Primary Care Provider] - Activity Restrictions/Additional Instructions: Thank you for trusting us with your care today! Please take Tylenol (2 pills, 650 mg), ibuprofen (2 pills, 400 mg) every 6 hours as needed for pain and fever control. Please take antibiotics as prescribed until course completed. Please return to the emergency department if your symptoms change or worsen. Please follow with Dentistry for further outpatient evaluation and management. Print Language: Kyrgyz Disposition Disposition: Home, Self Care
--- OUTSIDE RECORDS SUMMARY | 2025-04-14 05:25 | XMS RPT_ITS | CCD ---
Author Organization [facility] Care Team Providers Care Equal Opportunity Officer Name Role Phone Surjit Aguirre MD Primary Care Provider SAMI VORA Referring Unavailable SURJIT AGUIRRE Primary Care Unavailable Surjit Aguirre MD Primary Care Provider Sami Vora MD Unavailable [place] HEALTH INFORMATION SPECIALIST.Kirsten ANDREA Unavailable [place] HEALTH INFORMATION SPECIALIST.Adalberto ANDREA Unavailable Eliseo Wick Attending Unavailable Elderbrock, Surjit Primary Care Unavailable Elderbrock, Surjit Primary Care Unavailable Danii Weinberg Attending Unavailable Elderbrock, Surjit Primary Care Unavailable Bibiana Thompson Attending Unavailable Yobani Darby Attending Unavailable Yobani Darby Admitting Unavailable Elderbrock, Surjit Primary Care Unavailable Asia Berman Attending Unavailable Prashanth Asia Admitting Unavailable Elderbrock, Surjit Primary Care Unavailable Jasiel Bibiana Referring Unavailable Bibiana Weathers Attending Unavailable Heaters, Bibiana Admitting Unavailable Elderbrock, Surjit Primary Care Unavailable Elderbrock, Surjit Primary Care Unavailable Lucas Boston Attending Unavailable Elderbrock, Surjit Primary Care Unavailable Vini Myers Attending Unavailable Anastasiia Russo NP Attending Unavailable Elderbrock, Surjit Primary Care Unavailable Elderbrock, Surjit Referring Unavailable Burton Freeman Attending Unavailable Elderbrock, Surjit Primary Care Unavailable [place] HEALTH INFORMATION SPECIALIST.Kirsten ANDREA Unavailable [place] HEALTH INFORMATION SPECIALIST.Kirsten ANDREA Unavailable CARLA SURJIT D Primary Care Unavailable ASIA BERMAN Referring Unavailable CARLA SURJIT D Primary Care Unavailable SURJIT AGUIRRE D Attending Unavailable ELDERBROCK, SURJIT D Primary Care Unavailable ELDERBROCK, SURJIT D Primary Care Unavailable WILNER, KARMON Referring Unavailable JASIELESA BLANCASFER Attending Unavailable ELDERBROCK, SURJIT D Primary Care Unavailable PLOTTS, ROSARIO Referring Unavailable KHOT, SAMI N Attending Unavailable ELDERBROCK, SURJIT D Primary Care Unavailable JASIEL, BIBIANA Attending Unavailable ELDERBROCK, SURJIT D Primary Care Unavailable PLOTTS, ROSARIO Attending Unavailable ELDERBROCK, SURJIT D Primary Care Unavailable DANYELL JURADO Attending Unavail able ELDERBROCK, SURJIT D Primary Care Unavailable LAURYN GOETZ Attending Unavailable ELDERBROCK, SURJIT D Primary Care Unavailable PLOTTS, ROSARIO Attending Unavailable ELDERBROCK, SURJIT D Primary Care Unavailable ELDERBROCK, SURJIT D Primary Care Unavailable KHOT, SAMI N Referring Unavailable ELDERBROCK, SURJIT D Primary Care Unavailable JASIEL, BIBIANA Referring Unavailable ELDERBROCK, SURJIT D Primary Care Unavailable HAURY, DANII Referring Unavailable ELDERBROCK, SURJIT D Primary Care Unavailable KHOT, SAMI N Referring Unavailable KHOT, SAMI N Attending Unavailable ELDERBROCK, SURJIT D Primary Care Unavailable YOBANI DARBY Attending Unavailable ELDERBROCK, SURJIT D Primary Care Unavailable JASIEL, BIBIANA Referring Unavailable ELDERBROCK, SURJIT D Primary Care Unavailable HAURY, DANII Referring Unavailable ELDERBROCK, SURJIT D Primary Care Unavailable WILNER, CODIMON Attending Unavailable ELDERBROCK, SURJIT D Primary Care Unavailable WILNER, KARMON Referring Unavailable ELDERBROCK, SURJIT D Primary Care Unavailable WILNER KARMON Referring Unavailable ELDERBROCK, SURJIT D Primary Care Unavailable WILNER, KARMON Referring Unavailable ELDERBROCK, SURJIT D Primary Care Unavailable DANYELL JURADO Attending Unavail able ELDERBROCK, SURJIT D Primary Care Unavailable PLOTTS, ROSARIO Attending Unavailable ELDERBROCK, SURJIT D Primary Care Unavailable KANWAL CHOW Attending Unavailable ELDERBROCK, SURJIT D Primary Care Unavailable PLOTTS, ROSARIO Attending Unavailable ELDERBROCK, SURJIT D Primary Care Unavailable PLOTTS, ROSARIO Referring Unavailable Allergies Allergy Classification Reported Allergen(s) Allergy Type Date of Onset Reaction(s) Facility Pollen (1 source) Pollen Substance Allergy 2 Other: See Comments [facility] (20 sources) Pollen; Translations: [POLLEN] Allergy to substance 2 Other: See Comments [facility] Medications Current Medications Medication Drug Class(es) Dates Sig (Normalized) Sig (Original) acetaminophen 500 mg oral tablet (1 source) Start: 01-08-2022 take 1000 mg by mouth every six hours Acetaminophen Active 1000 MG PO EVERY 6 HOURS 60 January 08, 2022 12:33pm amoxicillin 875 mg oral tablet (2 sources) [...] mg oral tablet (8 sources) Atypical Antipsychotic Start: 08-22-19 End: 06-03-20 take 1 tablet by mouth once daily ARIPiprazole (ABILIFY) 2 mg tablet Take 2 mg by mouth once daily. 0 08/22/2022 06/03/2023 Discontinued Comment on above: Take 2 mg by mouth o nce daily. aspirin 81 mg oral tablet (20 sources) Platelet Aggregation Inhibitor, Nonsteroidal Anti-inflammatory Drug Start: 02-04-20 End: 06-09-20 take 1 capsule by mouth once daily aspirin 81 mg cap Take 81 mg by mouth once daily. Starting at 12 weeks. 90 capsule 2 02/04/2024 06/09/2024 Discontinued cariprazine 3 mg oral capsule (20 sources) Atypical Antipsychotic Start: 05-28-20 End: 06-09-20 take 1 capsule by mouth once daily VRAYLAR 3 mg capsule Take 3 mg by mouth once daily. 08/04/2023 06/09/2024 Discontinued Comment on above: Take 1 capsule by mo ut once daily. doxycycline hyclate 100 mg oral tablet (1 source) Tetracycline-class Drug Start: 09-02-19 End: 09-12-19 take 1 tablet by mouth twice daily doxycycline (VIBRA-TABS) 100 mg tablet Indications: Sore throat Take 1 tablet by mouth twice daily for 10 days. 20 tablet 0 09/02/2022 09/12/2022 Active Comment on above: Take 1 tablet by sb twice daily for 10 days. DULoxetine 20 mg delayed release oral capsule (20 sources) Serotonin and Norepinephrine Reuptake Inhibitor Start: 12-22-19 take 2 capsules by mouth once daily DULoxetine (CYMBALTA) 20 mg capsule Indications: Depression, unspecified depression type , Anxiety with depression Take 2 capsules by mouth once daily. 180 capsule 3 12/21/2024 Active Start: 08-30-2024 End: 12-21-2024 take 1 capsule by mouth once daily DULoxetine (CYMBALTA) 30 mg capsule Take 30 mg by mouth once daily. 08/30/2024 12/21/2024 Discontinued Start: 08-05-2022 End: 06-09-2024 take 1 capsule by mouth once daily DULoxetine (CYMBALTA) 60 mg capsule Take 60 mg by mouth once daily. 08/05/2022 06/09/2024 Discontinued Comment on above: Take 60 mg by mouth once daily. ferrous gluconate 324 mg oral tablet (1 source) Start: 2021 take 324 mg by mouth at lunch Ferrous Gluconate Active 324 MG PO WITH LUNCH January 08, 2022 12:35pm ibuprofen 600 mg oral tablet (1 source) Nonsteroidal Anti-inflammatory Drug Start: 2021 take 600 mg by mouth every six hours Ibuprofen Active 600 MG PO EVERY 6 HOURS January 08, 2022 12:33pm 5 ml iron sucrose 20 mg/ml injection (9 sources) Parenteral Iron Replacement Start: 2021 End: 2021 iron sucrose 200 mg injection (VENOFER) 1 ml medroxyPROGESTERone acetate 150 mg/ml prefilled syringe (20 sources) Progestin Start: 2021 End: 2022 medroxyPROGESTERone 150 mg injection (DEPO-PROVERA) Start: 02-19-2022 End: 06-03-2023 medroxyPROGESTERone (DEPO-SD OVERA) 150 mg/mL Inject 1 mL intramuscularly every 12 weeks. 1 Each 4 02/19/2022 06/03/2023 Discontinued Comment on above: Inject 1 mL intramus cularly every 12 weeks. oxyCODONE hydrochloride 5 mg oral tablet (2 sources) Opioid Agonist Start: 08-19-19 End: 08-21-19 take 1 tablet by mouth every eight hours as needed for pain oxyCODONE IR (ROXICODONE) 5 mg immediate release tablet Indications: History of section Take 1 tablet by mouth every 8 hours as needed for pain for up to 2 days. 6 tablet 08/19/2024 08/21/2024 Active Start: 01-08-2022 take 5 mg by mouth e very eight hours Oxycodone Active 5 MG PO Q8H 10 January 08, 2022 12:33pm multivitamin (CLASSIC ) 28 mg iron- 800 mcg tab(s) (20 sources) End: 06-03-2023 take 1 tablet by mouth once daily [...] mg tab once daily. 0 01/01/2022 Active Vit-Iron Fum-Folic Ac (1 source) Start: 01-01-2022 take 1 tablet by mouth once daily before mealtime Vit-Iron Fum-Folic Ac Active 1 TABLET PO DAILY January 01, 2022 8:15pm PUMP SET MISC (20 sources) End: 06-09-2024 PUMP SET MISC Zofran 06/09/2024 Discontinued PUMP SET MISC Zo chantell Active PUMP SET MISC Zo chantell 0 Active traZODone hydrochloride 100 mg oral tablet (20 sources) Serotonin Reuptake Inhibitor Start: 12-21-2024 take 1 tablet by mouth once daily at bedtime traZODone (DESYREL) 100 mg tablet Indications: Anxiety with depression , Chronic insomnia Take 1 tablet by mouth daily at bedtime. 90 tablet 3 12/21/2024 Active Start: 06-01-2023 End: 12-21-2024 traZODone (DESYREL) 50 mg ta blet 06/01/2023 12/21/2024 Discontinued Completed/Discontinued Medications Medication Drug Class(es) Dates Sig [...] mg subcu taneously one time a week. famotidine 20 mg oral tablet (20 sources) Histamine-2 Receptor Antagonist Start: 4 End: 5 famotidine (PEPCID) 20 mg tablet two times a day. 02/01/2024 11/26/2024 Discontinued ferrous sulfate 325 mg oral tablet (20 [...] (2 sources) Azole Antifungal Start: 3 End: 3 fluconazole (DIFLUCAN) 150 mg tablet Indications: Feared [...] capsule 30 capsule 5 03/01/2022 Active Start: 01-01-2022 End: 01-08-2022 take 40 mg by mouth at bedtime Fluoxetine Active 40 MG PO AT BEDTIME 60 January 08, 2022 12:33pm Start: 11-23-2021 End: 06-03-2023 take 1 capsule by mouth once daily FLUoxetine HCl (PROZAC) 40 mg capsule Take 1 capsule by mouth once daily. 90 capsule 1 11/23/2021 06/03/2023 Discontinued Start: 07-26-2021 take 1 capsule by [facility] once daily FLUoxetine (PROZAC) 20 mg capsule Take 1 capsule by mouth once daily. 90 capsule 3 07/26/2021 Active Comment on above: Take 1 capsule by mo ut once daily. Take 1 capsule by mo ut once daily. Take along with 40 mg capsule hydrOXYzine pamoate 50 mg oral capsule (20 sources) Antihistamine Start: 09-02-19 End: 03-01-20 24 take 2 capsules by mouth twice daily hydrOXYzine pamoate (VISTARIL) 50 mg capsule Take 2 capsules by mouth twice daily. 09/02/2022 03/01/2024 Discontinued Comment on above: Take 2 capsules by out twice daily. meloxicam 15 mg oral tablet [...] Comment on above: Take 1 tablet by [facility] once daily. With food. metroNIDAZOLE 500 mg oral tablet (2 sources) Nitroimidazole Antimicrobial Start: 11-28-19 End: 12-05-19 take 1 tablet by mouth twice daily metroNIDAZOLE (FLAGYL) 500 mg tablet Indications: BV (bacterial vaginosis) Take 1 tablet by mouth two times a day for 7 days. 14 tablet 11/27/2024 12/04/2024 Start: 12-26-2023 End: 01-02-2024 take 1 tablet by mouth twice daily metroNIDAZOLE (FLAGYL) 500 mg tablet Take 1 tablet by mouth two times a day for 7 days. 14 tablet 0 12/26/2023 01/02/2024 Active ondansetron 4 mg oral tablet (20 sources) Serotonin-3 Receptor Antagonist Start: 01-30-2024 End: 11-26-2024 take 1 tablet by mouth every eight hours as needed ondansetron (ZOFRAN) 4 mg tablet Take 1 tablet by mouth every 8 hours as needed for nausea/vomiting. 30 tablet 1 01/30/2024 11/26/2024 Discontinued Start: 06-25-2021 take 1 tablet by sb th every eight hours as needed ondansetron orally disintegrating (ZOFRAN ODT) 4 mg disintegrating tablet Take 1 tablet by mouth every 8 hours as needed for nausea/vomiting. 30 tablet 0 06/29/2021 Active Comment on above: Take 1 tablet by sb th every 8 hours as needed for nausea/vomiting. promethazine hydrochloride 25 mg oral tablet (20 sources) Phenothiazine End: 11-27-19 take 25 mg by mouth every six hours promethazine HCl (PHENERGAN ORAL) Take 25 mg by mouth every 6 hours. 11/26/2024 Discontinued topiramate 50 mg oral tablet (2 sources) Start: 10-09-19 End: 12-25-19 take 1 tablet by mouth once daily topiramate (TOPAMAX) 50 mg tablet Take 1 tablet by mouth once daily. 0 10/09/2023 12/25/2023 Discontinued Comment on above: Take 1 tablet by sb th once daily. vitamin b6 50 mg oral tablet (2 sources) Start: 02-01-20 End: 03-01-20 take 1 tablet by mouth every twelve hours pyridoxine, vitamin B6, (VITAMIN B6) 50 mg tablet Take 1 tablet by mouth every 12 hours. 0 02/01/2024 03/01/2024 Discontinued Problems Active Problems Problem Classification Problem Date Documented Date Episodic/Chronic Acute posthemorrhagic anemia (2 sources) Anemia due to blood loss; Translations: [Acute posthemorrhagic anemia] Episodic Administrative/social admission (1 source) Worried well; Translations: [Person with feared health complaint in whom no diagnosis is made] 06-26-2023 Episodic Anxiety disorders (3 sources) Mixed anxiety and depressive disorder; Translations: [Other specified anxiety disorders] Onset: Chronic Disorders of teeth and jaw (2 sources) Temporomandibular joint disorder; Translations: [Unspecified temporomandibular joint disorder, unspecified side] Onset: 4 03-01-2024 Episodic Early or threatened labor (3 sources) Premature uterine contraction; Translations: [False labor before 37 completed weeks of gestation, unspecified trimester] Episodic distress and abnormal forces of labor (2 sources) Arrested active phase of labor; Translations: [Secondary uterine inertia] Episodic Fetopelvic disproportion; obstruction (2 sources) Persistent occipitoposterior position; Translations: [Obstructed labor due to incomplete rotation of head, not applicable or unspecified] Episodic Genitourinary symptoms and ill-defined conditions (2 sources) Finding of sensation of bladder; Translations: [Other symptoms and signs involving the genitourinary system] 06-03-2023 Episodic Immunizations and screening for infectious disease (4 sources) Vaccination needed; Translations: [Encounter for immunization] Episodic Inflammatory diseases of female pelvic organs (1 source) Bacterial vaginosis; Translations: [Acute vaginitis] 11-27-2024 Episodic Menstrual disorders (1 source) Break-through bleeding; Translations: [Excessive and frequent menstruation with irregular cycle] Chronic Miscellaneous mental health disorders (2 sources) Chronic insomnia; Translations: [Psychophysiologic insomnia] Onset: 5 12-21-2024 Chronic Mood disorders (1 source) Mood disorders; Translations: [Depression, unspecified depression type] Onset: 5 Nausea and vomiting (1 source) Nausea with vomiting, unspecified; Translations: [Nausea with vomiting, unspecified] Onset: 4 Episodic Other circulatory disease (1 source) Feeling of lump in throat; Translations: [Other specified symptoms and signs involving the circulatory and respiratory systems] Episodic Other complications of ; puerperium affecting management of mother (2 sources) Deliveries by ; Translations: [Delivery by section] Episodic Other complications of ; puerperium affecting management of mother (1 source) delivery - delivered; Translations: [Encounter for delivery without indication] Episodic Other complications of (1 source) Anemia of ; Translations: [Anemia complicating , unspecified trimester] Chronic Other complications of (1 source) Anemia complicating , unspecified trimester; Translations: [Anemia of mother, unspecified as to episode of care or not applicable] Chronic Other complications of (1 source) Obesity complicating , third trimester; Translations: [Obesity affecting in third trimester, unspecified obesity type] Onset: 4 Chronic Other complications of (1 source) Obesity complicating , first trimester; Translations: [Obesity affecting in first trimester, unspecified obesity type] Onset: Chronic Other complications of (20 sources) High risk ; Translations: [Supervision of other high risk pregnancies, second trimester] Onset: 2 10-30-2021 Episodic Other complications of (1 source) ultrasound increased nuchal translucency; Translations: [Abnormal ultrasonic finding on screening of mother] Episodic Other complications of (1 source) Maternal care for (suspected) chromosomal abnormality in fetus, not applicable or unspecified; Translations: [Chromosomal abnormality in fetus, affecting management of mother, unspecified as to episode of care or not applicable] Episodic Other complications of (1 source) Supervision of with other poor reproductive or obstetric history, unspecified trimester; Translations: [ with other poor obstetric history] 05-14-2024 Episodic Other connective tissue disease (1 source) Trochanteric bursitis of right hip; Translations: [Trochanteric bursitis, right hip] 10-20-2023 Episodic Other female genital disorders (2 sources) Vaginal irritation; Translations: [Other specified noninflammatory disorders of vagina] 12-25-2023 Episodic Other female genital disorders (1 source) History of premature labor; Translations: [Personal history of pre-term labor] 05-17-2024 Episodic Other female genital disorders (2 sources) Vaginal discharge; Translations: [Other specified noninflammatory disorders of vagina] 09-08-2024 Episodic Other injuries and conditions due to external causes (1 source) Injury of right leg; Translations: [Unspecified injury of right lower leg, initial encounter] 04-17-2023 Episodic Other injuries and conditions due to external causes (2 sources) Injury of right lower leg; Translations: [Unspecified injury of right lower leg, initial encounter] 04-30-2023 Episodic Other nervous system disorders (1 source) Postoperative pain ; Translations: [Other acute postprocedural pain] Episodic Other nutritional; endocrine; and metabolic disorders (1 source) Obesity; Translations: [Obesity, unspecified] 06-03-2023 Chronic Other upper respiratory disease (1 source) Pain in throat; Translations: [Pain in throat] Episodic Other upper respiratory infections (5 sources) Pharyngitis; Translations: [Acute pharyngitis, unspecified] Episodic Otitis media and related conditions (2 sources) Acute right otitis media; Translations: [Otitis media, unspecified, right ear] Episodic Residual codes; unclassified (2 sources) Gestation period, 28 weeks; Translations: [28 weeks gestation of ] Episodic Residual codes; unclassified (2 sources) Gestation period, 31 weeks; Translations: [31 weeks gestation of ] Episodic Residual codes; unclassified (5 sources) Gestation period, 33 weeks; Translations: [33 weeks gestation of ] Episodic Residual codes; unclassified (1 source) Gestation period, 34 weeks; Translations: [34 weeks gestation of ] Episodic Residual codes; unclassified (3 sources) Gestation period, 35 weeks; Translations: [35 weeks gestation of ] Episodic Residual codes; unclassified (2 sources) Gestation period, 36 weeks; Translations: [36 weeks gestation of ] 08-16-2024 Episodic Residual codes; unclassified (1 source) H/O: depression; Translations: [Personal history of other complications of , childbirth and the puerperium] Episodic Residual codes; unclassified (1 source) 35 weeks gestation of ; Translations: [ state, incidental] Episodic Residual codes; unclassified (1 source) 36 weeks gestation of ; Translations: [ state, incidental] Episodic Residual codes; unclassified (1 source) Personal history of other complications of , childbirth and the puerperium; Translations: [Personal history of other genital system and obstetric disorders] Episodic Residual codes; unclassified (2 sources) Gestation [...] 05-27-2024 Episodic Residual codes; unclassified (1 source) Gestation period, 32 weeks; Translations: [32 weeks gestation of ] 07-19-2024 Episodic Screening and history of mental health and substance abuse codes (20 sources) Patient encounter status; Translations: [Encounter for screening for maternal depression] Onset: 4 Resolved: Episodic Spondylosis; intervertebral disc disorders; other back problems (1 source) Acute low back pain; Translations: [Acute bilateral low back pain without sciatica] Episodic Substance-related disorders (20 sources) Psychoactive substance abuse; Translations: [Cannabis abuse, uncomplicated] Onset: 0 10-30-2021 Chronic Unclassified (18 sources) Increased nuchal thickness; Translations: [Thickening of nuchal fold] Onset: 1 08-14-2021 Unclassified (20 sources) [facility] - [facility]ON Onset: 4 02-04-2024 Unclassified (20 sources) Education - [place] Onset: 4 02-04-2024 Unclassified (1 source) Other specified diseases and conditions complicating ; Translations: [Other specified diseases and conditions complicating ] Onset: 4 Past or Other Problems Problem Classification Problem Date Documented Da te Episodic/Chronic Abdominal pain (1 source) Unspecified abdominal pain; Translations: [Unspecified abdominal pain] Onset: 02-12-2024 Episodic Cardiac dysrhythmias (20 sources) Palpitations; Translations: [Palpitations] Onset: 05-21-2024 05-21-2024 Episodic Conditions associated with dizziness or vertigo (20 sources) Dizziness; Translations: [Dizziness and giddiness] Onset: 05-21-2024 05-21-2024 Episodic Diabetes mellitus without complication (20 sources) Increased glucose level; Translations: [Other abnormal glucose] Onset: 07-04-2020 Resolved: 08-22-2020 08-22-2020 Episodic Diabetes or abnormal glucose tolerance complicating ; childbirth; or the puerperium (20 sources) Abnormal glucose level; Translations: [Abnormal glucose complicating ] Onset: 07-04-2020 Resolved: 08-25-2024 06-25-2024 Episodic Mood disorders (20 sources) Depressive disorder; Translations: [Depression] Onset: 02-24-2012 Resolved: 02-04-2024 11-30-2020 Chronic Other circulatory disease (20 sources) History of myocarditis; Translations: [Personal history of other diseases of the circulatory system] Onset: 02-21-2020 09-04-2021 Episodic Other complications of (20 sources) Anemia in mother complicating , childbirth AND/OR puerperium; Translations: [Anemia complicating , third trimester] Onset: 07-04-2020 Resolved: 08-22-2020 Chronic Other complications of (20 sources) Maternal obesity complicating , childbirth and the puerperium, antepartum; Translations: [Obesity complicating , first trimester] Onset: 02-04-2024 Resolved: 08-25-2024 02-04-2024 Chronic Other complications of (20 sources) Depressive disorder; Translations: [Other mental disorders complicating , second trimester] Onset: 02-21-2020 08-21-2021 Episodic Other complications of (20 sources) Finding of pattern of ; Translations: [Supervision of other high risk pregnancies, unspecified trimester] Onset: 06-12-2021 06-12-2021 Episodic Other complications of (20 sources) H/O: premature delivery; Translations: [Supervision of other high risk pregnancies, unspecified trimester] Onset: 06-12-2021 Resolved: 08-25-2024 10-30-2021 Episodic Other complications of (20 sources) Increased nuchal thickness; Translations: [Maternal care for (suspected) chromosomal abnormality in fetus, not applicable or unspecified] Onset: 07-17-2021 08-14-2021 Episodic Other complications of (20 sources) Hyperemesis gravidarum; Translations: [Mild hyperemesis gravidarum] Onset: 02-04-2024 Resolved: 08-25-2024 02-04-2024 Episodic Other complications of (14 sources) Nausea and vomiting; Translations: [Vomiting of , unspecified] Onset: 02-21-2020 Resolved: 08-22-2020 08-22-2020 Episodic Other complications of (2 sources) Supervision of other high risk pregnancies, unspecified trimester; Translations: [Supervision of other high-risk ] Onset: 02-17-2024 Episodic Other complications of (20 sources) Urinary tract infection in ; Translations: [Unspecified infection of urinary tract in , unspecified trimester] Onset: 02-25-2020 Resolved: 08-22-2020 08-22-2020 Episodic Other complications of (20 sources) Anxiety in ; Translations: [Other mental disorders complicating , unspecified trimester] Onset: 02-04-2024 Resolved: 08-25-2024 02-04-2024 Episodic Other complications of (20 sources) Depressive disorder in mother complicating ; Translations: [Other mental disorders complicating , unspecified trimester] Onset: 02-21-2020 Resolved: 08-25-2024 02-04-2024 Episodic Other complications of (20 sources) Vomiting of , unspecified; Translations: [Unspecified vomiting of , unspecified as to episode of care or not applicable] Onset: 02-21-2020 Resolved: 08-22-2020 08-22-2020 Episodic Other complications of (20 sources) Uterine size for dates discrepancy; Translations: [Uterine size-date discrepancy, third trimester] Onset: 07-12-2024 Resolved: 08-25-2024 07-12-2024 Episodic Other complications of (15 sources) Excessive growth affecting management of mother; Translations: [Maternal care for excessive growth, third trimester, not applicable or unspecified] Onset: 08-06-2024 Resolved: 08-25-2024 08-06-2024 Episodic Other complications of (1 source) Mild hyperemesis gravidarum; Translations: [Mild hyperemesis gravidarum] Onset: 02-11-2024 Episodic Other complications of (4 sources) Other mental disorders complicating , unspecified trimester; Translations: [Mental disorders of mother, antepartum condition or complication] Onset: 02-04-2024 Resolved: 08-25-2024 08-25-2024 Episodic Other complications of (1 source) Supervision of high risk , unspecified, third trimester; Translations: [Supervision of high risk in third trimester] Onset: 07-19-2024 Episodic Other complications of (1 source) Supervision of high risk , unspecified, first trimester; Translations: [Encounter for supervision of high risk in first trimester, antepartum] Onset: 02-04-2024 Episodic Other complications of (1 source) Supervision of high risk , unspecified, second trimester; Translations: [High-risk in second trimester] Onset: 05-26-2024 Episodic Other connective tissue disease (20 sources) Pain in limb; Translations: [Pain in unspecified limb] Onset: 01-22-2010 Resolved: 02-29-2020 02-29-2020 Episodic Other female genital disorders (3 sources) Personal history of pre-term labor; Translations: [Personal history of pre-term labor] Onset: 04-14-2024 Episodic Other injuries and conditions due to external causes (20 sources) Injury of right ankle; Translations: [Unspecified injury of right ankle, subsequent encounter] Onset: 09-10-2023 Resolved: 02-04-2024 09-24-2023 Episodic Other non-traumatic joint disorders (20 sources) Pain in left shoulder; Translations: [Pain in joint, shoulder region] Onset: 09-17-2017 Resolved: 02-29-2020 02-29-2020 Episodic Other and delivery including normal (20 sources) Para 1; Translations: [Encounter for supervision of normal first , unspecified trimester] Onset: 06-06-2020 Resolved: 08-22-2020 Episodic Other screening for suspected conditions (not mental disorders or infectious disease) (5 sources) Cancer cervix screening status; Translations: [Encounter for screening for malignant neoplasm of cervix] Onset: 03-09-2024 02-04-2024 Episodic Polyhydramnios and other problems of amniotic cavity (20 sources) Abnormal amniotic fluid; Translations: [Polyhydramnios, unspecified trimester, not applicable or unspecified] Onset: 12-17-2021 12-17-2021 Episodic Residual codes; unclassified (20 sources) Family history of Spina bifida; Translations: [Family history of other congenital malformations, deformations and chromosomal abnormalities] Onset: 06-12-2021 06-12-2021 Episodic Residual codes; unclassified (1 source) Illness, unspecified; Translations: [Illness, unspecified] Onset: 04-16-2024 Episodic Residual codes; unclassified (1 source) 33 weeks gestation of ; Translations: [33 weeks gestation of ] Onset: 07-22-2024 Episodic Residual codes; unclassified (1 source) 32 weeks gestation of ; Translations: [32 weeks gestation of ] Onset: 07-19-2024 Episodic Residual codes; unclassified (1 source) History of uterine scar from previous surgery; Translations: [History of section] Onset: 02-04-2024 Episodic Residual codes; unclassified (1 source) 22 weeks gestation of ; Translations: [22 weeks gestation of ] Onset: 05-26-2024 Episodic Residual codes; unclassified (1 source) 23 weeks gestation of ; Translations: [23 weeks gestation of ] Onset: 05-26-2024 Episodic Residual codes; unclassified (1 source) 13 [...] Results Test Name Value Interpretation Reference Range Mariajose Dai 12-21-2024 [facility] ADENIKEKIMBERLY N ([id number]) 1995 F Date Time Provider Department 12/21/24 4:40 PM [facility] During your visit today, we recorded the following information about you: Pulse Respiration Blood pressure Weight 60/minute 16/minute 106/62 70.4 kg Surjit Aguirre MD 12/21/2024 5:25 PM Signed Chief Complaint Patient presents with: Follow Up: Medication HPI Kimberly Jeong is a 29 year old female who presents here today for medication discussion. 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 Pt has recently been seeing [facility] [address] for Psychiatry and they are prescribing her Cymbalta and Trazodone 100 mg daily. Due to not being able to afford the copay, asking if Primary Care can take over prescribing medication. Pt has been on several medications in the past due to anxiety, depression, and sleep issues. Pt reports she's been stable with use of Cymbalta 20 mg 2 tabs po daily. Sleep has been stable with use of Trazodone 100 mg once daily at bedtime. She's concerned about weight gain with medication, and wondering if there's other options. Weight is still trending down at this time. Pt has been on several medications in the past such as Wellbutrin, Zoloft, Celexa, Abilify, Vraylar, Vistaril, and Amitriptyline. Has seen a counselor at [facility] [address] also. HM - Declines Covid vaccine. Depression/Anxiety screening completed, negative. Past medical history, appointments, medications, allergies reviewed. Previous Medical History PAST MEDICAL HISTORY Diagnosis Date Anemia complicating , second trimester ([facility]) 07/04/2020 Contracted pelvis during ([facility]) depression anxiety fracture 11 years old right wrist-fell out of bunk bed H/O delivery, currently ([facility]) Hyperemesis gravidarum ([facility]) ER: 01/29/2024 Injury of right ankle 09/10/2023 Myocarditis ([facility]) age 18 months [address] Lay--recheck age 18 yrs PMH - PAST MEDICAL HISTORY OF 06/2007 Right wrist fracture PMH - PAST MEDICAL HISTORY OF normal color vision depression Recurrent major depressive disorder, in partial remission 11/03/2020 Sprain of right ankle 09/10/2023 Sprain of unspecified ligament of right ankle, initial encounter 09/10/2023 Unspecified injury of right ankle, subsequent encounter 09/10/2023 Previous Surgical History PAST SURGICAL HISTORY Procedure Laterality Date DELIVERY ONLY 01/05/2022 LTCS DELIVERY ONLY 08/18/2024 PAST SURGICAL HISTORY OF wisdom teeth Family [...] Prior to Visit Medication Sig DULoxetine (CYMBALTA) 30 mg capsule Take 30 mg by mouth once daily. multivitamin (CALIXTO ) 65 mg iron- 1 mg tab once daily. famotidine (PEPCID) 20 mg tablet two times a day. (Patient not taking: Reported on 09/08/2024) promethazine HCl (PHENERGAN ORAL) Take 25 mg by mouth every 6 hours. (Patient not taking: Reported on 08/25/2024) ondansetron (ZOFRAN) 4 mg tablet Take 1 tablet by mouth every 8 hours as needed for nausea/vomiting. (Patient not taking: Reported on 08/25/2024) traZODone (DESYREL) 50 mg tablet No current facility-administered medications on file prior to visit. Social History Social History Tobacco Use Smoking status: Never Smokeless tobacco: Never Vaping Use Vaping status: Never Used Substance Use Topics Alcohol use: Not Currently Drug use: No EXAM: BP 106/62 (BP Site: Left Arm, BP Position: Sitting, BP Cuff Size: Regular Adult) Pulse 60 Resp 16 Wt 70.4 kg (155 lb 3.3 oz) LMP 11/19/2024 (Exact Date) BMI 28.39 kg/m? General Appearance: Well appearing, alert, in no acute distress, well-hydrated, well nourished.. Lungs: Lungs clear to auscultation. No wheezing, rhonchi, rales.. Heart: RRR without murmur, gallop, or rubs. No ectopy. Health Maintenance List Depression Screening Never done Anxiety Screening Never done Covid-19 Vaccine(2023- season) Never done Influenza Vaccine(Season Ended) due on 04/18/2025 Cervical Cancer Screening due on 02/03/2027 DTaP,Tdap,Td Vaccine(11 - Td or Tdap) due on 06/24/2034 Hepatitis B Vac (more content not included)... Normal [facility] BACTERIAL VAGINOSIS NAATon 0 4- Lactobacillus crispatus+gasseri+nella senii + Gardnerella vaginalis + Atopobium vaginae rRNA MARGARETTE+probe Ql (Vag fld) Detected Abnormal Not detected [facility] Comment on above: Order Comment: Speci men Type: SWABOrdering Facility: [facility] Address: [address] [place] [address] Performed By: #### C VTV, BVAMP ####[facility] [id number] [place] [address] [place] MATHIEU/TRICHOMONAS NAATon 0 11-26-2024 C. glabrata RNA MARGARETTE+probe Ql (Vag fld) Not detected Normal Not detected [facility] Comment on above: Order Comment: Speci men Type: SWABOrdering Facility: [facility] Address: [address] [place] [address] Performed By: #### C VTV, BVAMP ####[facility] [id number] [address] [place] Mathieu sp DNA MARGARETTE+probe Ql (Vag fld) Not detected Normal Not detected [facility] Comment on above: Order Comment: Speci men Type: SWABOrdering Facility: [facility] Address: [address] [place] [address] Result Comment: The Mathieu species group target includes C. albicans, C. tropicalis, C. parapsilosis, and C. dubliniensis. Performed By: #### C VTV, BVAMP ####[facility] [id number] [place] [address] [place] T. vaginalis DNA MARGARETTE+probe Ql (Unsp spec) Not detected Normal Not detected [facility] Comment on above: Order Comment: Speci men Type: SWABOrdering Facility: [facility] Address: [address] [place] [address] Performed By: #### C VTV, BVAMP ####[facility]IA [id number] [place] [address] [facility] CNOVon 11-26-2024 CNOV Office Visit ([facility] ) KIMBERLY JEONG ([id number]) 1995 F Date Time Provider Department 11/26/24 2:00 PM LAURYN GOETZ OBGYWM During your visit today, we recorded the following information about you: Blood pressure Weight Last Period 110 71.2 kg 11/19/24 Lauryn Goetz APRN.CLINICAL MATERIAL HANDLER 11/26/2024 5:21 PM Signed Results Engineer offered: Patient declines. Kimberly Jeong is a 29 year old female who presents for problem visit vaginal irritation for 2 week(s). HPI: Vaginal irritation with runny white discharge and fishy odor for past 2 weeks. Similar to past BV. Tubal sterilization. OB History Gravida3 Para3 Term1 Preterm2 AB0 Living3 SAB0 IAB0 Ectopic0 Multiple0 Live Births3 Vp Director Of Creative Strategy History LMP: 11/19/2024 (Exact Date), Having periods Age at Menarche: 13 Age at First : 23 Age at Menopause: Vp Director Of Creative Strategy History Comments: Pumped: 2 months Sexual Activity: Yes; Male Contraception: Tubal Ligation PAST MEDICAL HISTORY Diagnosis Date Anemia complicating [...] Procedure Laterality Date DELIVERY ONLY 01/05/2022 LTCS DELIVERY ONLY 08/18/2024 PAST SURGICAL HISTORY OF wisdom teeth FAMILY [...] use: No Current Outpatient Medications Medication Sig DULoxetine (CYMBALTA) 30 mg capsule Take 30 mg by mouth once daily. multivitamin (CALIXTO ) 65 mg iron- 1 mg tab once daily. famotidine (PEPCID) 20 mg tablet two times a day. (Patient not taking: Reported on 09/08/2024) promethazine HCl (PHENERGAN ORAL) Take 25 mg by mouth every 6 hours. (Patient not taking: Reported on 08/25/2024) ondansetron (ZOFRAN) 4 mg tablet Take 1 tablet by mouth every 8 hours as needed for nausea/vomiting. (Patient not taking: Reported on 08/25/2024) traZODone (DESYREL) 50 mg tablet No current facility-administered medications for this visit. Allergies As of Date: 11/26/2024 Allergen Noted Reaction POLLEN 12/05/2011 Other: See Comments Fully Assessed 11/26/2024 REVIEW OF SYSTEMS Abdomen: No bloating, early satiety, indigestion, or increased flatulence. No abdominal pain, nausea, vomiting, diarrhea, or constipation. Bladder: No dysuria, gross hematuria, urinary frequency, urinary urgency, or incontinence. Allergies and current medication updated:Yes SENSITIVE EXAM: The sensitive examination was discussed with the Patient or Patient's Authorized Reduction Furnace Operator Helper. As applicable, any other physician, advance practice provider, medical student, or other health professional student that will be observing or involved in the sensitive examination for educational or training purposes was discussed with the Patient or Authorized Reduction Furnace Operator Helper. The Patient or Authorized Reduction Furnace Operator Helper has agreed to proceed with the sensitive examination. (Sensitive examination includes inspection and/or palpation of the breasts, pelvis, prostate and anorectal regions). EXAM: BP 110/66 Wt 157 lb (71.2kg) LMP 11/19/2024 GENERAL: pleasant, female in no apparent distress CHEST: Normal inspiratory effort ABDOMEN: soft, non-tender, and no masses PELVIC: external genitalia normal, normal Bartholin's glands, urethra, [place]'s glands, no vulvar lesions, no cervical lesions, good vaginal support, thin white discharge present, normal appearing perineal body and perianal region BIMANUAL: uterus normal size, shape and consistency, no adnexal masses, and non-tend (more content not included)... Normal [facility] CNCOon 09-29-2024 CNCO Letter Text Normal [facility] BACTERIAL VAGINOSIS NAATon 0 09-08-2024 Lactobacillus crispatus+gasseri+nella senii + Gardnerella vaginalis + Atopobium vaginae rRNA MARGARETTE+probe Ql (Vag fld) Detected Abnormal Not detected [facility] Comment on above: Order Comment: Speci men Type: SWAB [facility] Address: [address] [place] [address] Performed By: #### B VAMP, CVTV #### [facility] CLIA [id number] [address] [place] [address] [place] Bacteria Ur Culton 5 Bacteria identified Cx Nom (U) ORGANISM ID: 1 10,000 -<50,000 CFU/ml Normal urogenital jeanne Normal [facility] Comment on above: Performed By: #### 6 30-4 ####[facility] [id number] [place] [address] [place] MATHIEU/TRICHOMONAS NAATon 0 09-08-2024 C. glabrata RNA MARGARETTE+probe Ql (Vag fld) Not detected Normal Not detected [facility] Comment on above: Order Comment: Speci men Type: SWAB [facility] Address: [address] [place] [address] Performed By: #### B VAMP, CVTV #### [facility] CLIA [id number] [address] [place] [address] [place] Mathieu sp DNA MARGARETTE+probe Ql (Vag fld) Not detected Normal Not detected [facility] Comment on above: Order Comment: Speci men Type: SWAB [facility] Address: [address] [place] [address] Result Comment: The Mathieu species group target includes C. albicans, C. tropicalis, C. parapsilosis, and C. dubliniensis. Performed By: #### B VAMP, CVTV #### [facility] CLIA [id number] [address] [place] [address] [place] T. vaginalis DNA MARGARETTE+probe Ql (Unsp spec) Not detected Normal Not detected [facility] Comment on above: Order Comment: Speci men Type: SWAB [facility] Address: [address] [place] [address] Performed By: #### B VAMP, CVTV #### [facility] CLIA [id number] [address] [place] [address] [place] UA DIP, URINE (POC)on 2024 BILIRUBIN UA (POCT) Negative Negative [facility] CLARITY UA (POCT) Clear [facility] COLOR UA (POCT) Yellow [facility] GLUCOSE UA (POCT) Negative Negative mg/dL [facility] Hemoglobin Ql (U) Trace-lysed Abnormal Negative [facility] Interpretation and review of laboratory results Abnormal [facility] KETONE UA (POCT) Negative Negative mg/dL [facility] LEUKOCYTES UA (POCT) Small Abnormal Negative [facility] NITRITE UA (POCT) Negative Negative [facility] PH UA (POCT) 6.0 4.5 - 8.0 [facility] Protein Ql (U) Negative Negative mg/dL [facility] SPECIFIC GRAVITY UA (POCT) 1.025 1.005 - 1.030 [facility] UROBILINOGEN UA (POCT) 0.2 Normal E.U./dL [facility] Location:[facility], [address], [place], [address] [facility] POINT OF CARE [facility] Agnieszka 08-24-2024 VICK Telephone (OBGYWM) KIMBERLY JEONG ([id number]) 1995 F Date Time Provider Department 08/24/24 BIBIANA WEATHERS During your visit today, we recorded the following information about you: Luz Cody RN 08/24/2024 12:05 PM Signed Patient had 08/18/24. Received fax from [facility] that they saw patient 08/23/24 and her hgb was 7.0 and 7.9 when rechecked. Both were done via fingerstick. They reviewed high iron foods and ways to increase absorption with her. Per [facility] records her hgb 08/19/24 was 6.9 and she was discharged that day to continue iron supplement. She has PP visit with you tomorrow. FYI. Luz Cody RN Allergies As of Date: 08/24/2024 Noted Allergy Reaction POLLEN 12/05/2011 14 - Other: See Comments Comments: Nasal congestion and drainage Date Reviewed: 08/16/2024 Reviewed by: Konstantin Simpson MA - Fully Assessed Reason for Visit: Care [85] Prescriptions as of 08/25/2024 - multivitamin (CALIXTO ) 65 mg iron- 1 mg tab once daily. - famotidine (PEPCID) 20 mg tablet two times a day. - promethazine HCl (PHENERGAN ORAL) Take 25 mg by mouth every 6 hours. - ondansetron (ZOFRAN) 4 mg tablet Take 1 tablet by mouth every 8 hours as needed for nausea/vomiting. 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] 02/21/2020 Nausea and vomiting in [O21.9] 02/21/2020 08/22/2020 Depression affecting [O99.340, F32.A] 02/21/2020 UTI (urinary tract infection) in , ant*02/25/2020 08/22/2020 Tetrahydrocannabinol (THC) use disorder, mild, *02/29/2020 Encounter for supervision of normal first pregn*06/06/2020 08/22/2020 Abnormal glucose complicating [O99.81*07/04/2020 Anemia complicating , second trimester*07/04/2020 08/22/2020 Recurrent major depressive disorder, in partial*11/03/2020 02/04/2024 H/O delivery, currently [O09.8*06/12/2021 Family history of spina bifida [Z82.79] 06/12/2021 Unspecified injury of right ankle, subsequent e*09/10/2023 02/04/2024 Sprain of unspecified ligament of right ankle, *09/10/2023 02/04/2024 Injury of right ankle [S99.911A] 09/10/2023 02/04/2024 Sprain of right ankle [S93.401A] 09/10/2023 02/04/2024 Hyperemesis affecting , antepartum [O2*02/04/2024 Obesity affecting in first trimester *02/04/2024 History of section [Z98.891] 02/04/2024 Anxiety during [O99.340, F41.9] 02/04/2024 Encounter for screening for nuchal tr*04/14/2024 Heart palpitations [R00.2] 05/21/2024 Dizziness [R42] 05/21/2024 Uterine size-date discrepancy, third trimester *07/12/2024 Excessive growth affecting management of *08/06/2024 Encounter Status:Closed by LUZ CODY on 08/25/24 Normal [facility] CBC W/Diff, Automatedon 01-0 2-2024 Absolute Lymph 3.63 X10 3/uL Normal 0.83-4.51 [facility] Comment on above: Performed By: #### M 100.678, L4 #### [facility] [address] [place], [address] Absolute Neut 10.3 X10 3/uL High 2.0-7.7 [facility] Comment on above: Performed By: #### M 100.678, L4 #### [facility] [address] [place], [address] Basophils/100 WBC (Bld) 0.2 % Normal 0-1 [facility] Comment on above: Performed By: #### M 100., #### [facility] [address] [place], [address] Eosinophils/100 WBC (Bld) 0.5 % Normal 0-5 [facility] Comment on above: Performed By: #### M 100.678, L4 #### [facility] [address] [place], [address] Erythrocyte distribution width (RBC) [Ratio] 17.8 % High 11.6-14.6 [facility] Comment on above: Performed By: #### M 100.678, #### [facility] [address] [place], [address] Hematocrit (Bld) [Volume fraction] 23.8 % Low 37-47 [facility] Comment on above: Performed By: #### M 100.678, L4 #### [facility] [address] [place], [address] Hemoglobin (Bld) [Mass/Vol] 6.9 g/dL Low 12.0-15.0 [facility] Comment on above: Performed By: #### M 100.678, L4 #### [facility] [address] [place], [address] IG% 3.200 High 0.0-0.9 [facility] Comment on above: Result Comment: IG% - Immature Granulocytes (promyelocytes, myelocytes and metamyelocytes) > 1% indicates that a LEFT SHIFT is Present. Performed By: #### M 100.67, L4 #### [facility] [address] [place], [address] Lymphocytes/100 WBC (Bld) 23.2 % Normal 19-41 [facility] Comment on above: Performed By: #### M 100., #### [facility] [address] [place], [address] MCH (RBC) [Entitic mass] 19.7 pg Low 27.0-32.0 [facility] Comment on above: Performed By: #### M 100., #### [facility] [address] [place], [address] MCHC (RBC) [Mass/Vol] 29.0 g/dL Low 32-36 [facility] Comment on above: Performed By: #### M 100., #### [facility] [address] [place], [address] MCV (RBC) [Entitic vol] 68.0 fL Low 81-99 [facility] Comment on above: Performed By: #### M 100.678, L4 #### [facility] [address] [place], [address] Monocytes/100 WBC (Bld) 7.4 % Normal 0-10 [facility] Comment on above: Performed By: #### M 100.678, L4 #### [facility] [address] [place], [address] Neutrophils/100 WBC (Bld) 65.5 % Normal 47-70 [facility] Comment on above: Performed By: #### M 100.678, L4.2010 #### [facility] [address] [place], [address] Nucleated RBC (Bld) [#/Vol] 1.3 10*3/uL Normal 0-5 [facility] Comment on above: Performed By: #### M 100.67, L4.2010 #### [facility] [address] [place], [address] Platelet mean volume (Bld) [Entitic vol] 10.7 fL Normal 6.2-12.0 [facility] Comment on above: Performed By: #### M 100., L4.2010 #### [facility] [address] [place], [address] Platelets (Bld) [#/Vol] 292 10*3/uL Normal 150-450 [facility] Comment on above: Performed By: #### M 100, L4.2010 #### [facility] [address] [place], [address] RBC (Bld) [#/Vol] 3.50 10*6/uL Low 4.2-5.4 [facility] Comment on above: Performed By: #### M 100.67, L4.2010 #### [facility] [address] [place], [address] RDW SD 42.3 fl Normal 35.1-43.9 [facility] Comment on above: Performed By: #### M 100.67, L4.2010 #### [facility] [address] [place], [address] WBC (Bld) [#/Vol] 15.6 10*3/uL High 4.4-11.0 [facility] Comment on above: Performed By: #### M 100.678, L400.2010 #### [facility] [place], [address] [facility] 08-19-2024 CNPN Telephone (OBGYWM) ADENIKEKIMBERLY N ([id number]) 1995 F Date Time Provider Department 08/19/24 YOBANI DARBY During your visit today, we recorded the following information about you: Bibiana Hernandes RN 08/19/2024 11:42 AM Signed [facility] nursing staff is asking if a prescription for Oxycodone can be sent to [facility] in [place] prior to patient being discharged. Thank you. ASHLEE Giordano Karmon, MD 08/19/2024 12:34 PM Signed Oxycodone sent MD Kya Huston Lindsey, RN 08/19/2024 12:37 PM Signed [facility] notified. Johanna Archer RN Allergies As of Date: 08/19/2024 Noted Allergy Reaction POLLEN 12/05/2011 14 - Other: See Comments Comments: Nasal congestion and drainage Date Reviewed: 08/16/2024 Reviewed by: Konstantin Simpson MA - Fully Assessed Reason for Visit: Refill Request [94] Primary Visit Diagnosis:History of section [Z98.891] Order(s):oxyCODONE IR (ROXICODONE) 5 mg immediate release tabletTake 1 tablet by mouth every 8 hours as needed for pain for up to 2 days.Disp: 6 tabletRfl: 0 Prescriptions as of 08/19/2024 - oxyCODONE IR (ROXICODONE) 5 mg immediate release tablet Take 1 tablet by mouth every 8 hours as needed for pain for up to 2 days. - multivitamin (CALIXTO ) 65 mg iron- 1 mg tab once daily. - famotidine (PEPCID) 20 mg tablet two times a day. - promethazine HCl (PHENERGAN ORAL) Take 25 mg by mouth every 6 hours. - ondansetron (ZOFRAN) 4 mg tablet Take 1 tablet by mouth every 8 hours as needed for nausea/vomiting. 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] 02/21/2020 Nausea and vomiting in [O21.9] 02/21/2020 08/22/2020 Depression affecting [O99.340, F32.A] 02/21/2020 UTI (urinary tract infection) in , ant*02/25/2020 08/22/2020 Tetrahydrocannabinol (THC) use disorder, mild, *02/29/2020 Encounter for supervision of normal first pregn*06/06/2020 08/22/2020 Abnormal glucose complicating [O99.81*07/04/2020 Anemia complicating , second trimester*07/04/2020 08/22/2020 Recurrent major depressive disorder, in partial*11/03/2020 02/04/2024 H/O delivery, currently [O09.8*06/12/2021 Family history of spina bifida [Z82.79] 06/12/2021 Unspecified injury of right ankle, subsequent e*09/10/2023 02/04/2024 Sprain of unspecified ligament of right ankle, *09/10/2023 02/04/2024 Injury of right ankle [S99.911A] 09/10/2023 02/04/2024 Sprain of right ankle [S93.401A] 09/10/2023 02/04/2024 Hyperemesis affecting , antepartum [O2*02/04/2024 Obesity affecting in first trimester *02/04/2024 History of section [Z98.891] 02/04/2024 Anxiety during [O99.340, F41.9] 02/04/2024 Encounter for screening for nuchal tr*04/14/2024 Heart palpitations [R00.2] 05/21/2024 Dizziness [R42] 05/21/2024 Uterine size-date discrepancy, third trimester *07/12/2024 Excessive growth affecting management of *08/06/2024 Prescriptions ordered this encounter Disp Refills Start End OXYCODONE 5 MG TABLET 6 ta* 0 08/19/2024 08/21/2024 Route: ORAL Sig: Take 1 tablet by mouth every 8 hours as needed for pain for up to 2 days. Encounter Status:Closed by JOHANNA ARCHER on 08/19/24 Normal [facility] CBC-Complete Blood Cnt No Di ffon 08-18-2024 Erythrocyte distribution width (RBC) [Ratio] 17.5 % High 11.6-14.6 [facility] Comment on above: Order Comment: Comme nts: Day #1 Reason for Laboratory Test Performed By: #### L 100.0500 #### [facility] [address] [place], [address] Hematocrit (Bld) [Volume fraction] 23.7 % Low 37-47 [facility] Comment on above: Order Comment: Comme nts: Day #1 Reason for Laboratory Test Performed By: #### L 100.0500 #### [facility] [address] [place], [address] Hemoglobin (Bld) [Mass/Vol] 6.9 g/dL Low 12.0-15.0 [facility] Comment on above: Order Comment: Comme nts: Day #1 Reason for Laboratory Test Performed By: #### L 100.0500 #### [facility] [address] [facility] [place], [address] MCH (RBC) [Entitic mass] 19.5 pg Low 27.0-32.0 [facility] Comment on above: Order Comment: Comme nts: Day #1 Reason for Laboratory Test Performed By: #### L 100.0500 #### [facility] [address] [place], [address] MCHC (RBC) [Mass/Vol] 29.1 g/dL Low 32-36 [facility] Comment on above: Order Comment: Comme nts: Day #1 Reason for Laboratory Test Performed By: #### L 100.0500 #### [facility] [address] [place], [address] MCV (RBC) [Entitic vol] 66.9 fL Low 81-99 [facility] Comment on above: Order Comment: Comme nts: Day #1 Reason for Laboratory Test Performed By: #### L 100.0500 #### [facility] [address] [place], [address] Platelet mean volume (Bld) [Entitic vol] 11.2 fL Normal 6.2-12.0 [facility] Comment on above: Order Comment: Comme nts: Day #1 Reason for Laboratory Test Performed By: #### L 100.0500 #### [facility] [address] [place], [address] Platelets (Bld) [#/Vol] 257 10*3/uL Normal 150-450 [facility] Comment on above: Order Comment: Comme nts: Day #1 Reason for Laboratory Test Performed By: #### L 100.0500 #### [facility] [address] [place], [address] RBC (Bld) [#/Vol] 3.54 10*6/uL Low 4.2-5.4 [facility] Comment on above: Order Comment: Comme nts: Day #1 Reason for Laboratory Test Performed By: #### L 100.0500 #### [facility] [address] [place], [address] RDW SD 41.7 fl Normal 35.1-43.9 [facility] Comment on above: Order Comment: Comme nts: Day #1 Reason for Laboratory Test Performed By: #### L 100.0500 #### [facility] [address] [place] [place], [address] WBC (Bld) [#/Vol] 16.0 10*3/uL High 4.4-11.0 [facility] Comment on above: Order Comment: Comme nts: Day #1 Reason for Laboratory Test Performed By: #### L 100.0500 #### [facility] [address] [place], [address] Operative Reporton 5 Operative Report [facility] Medical Records Department [address] [place] [address] Operative Report 08/18/24 0052 MR#: [id number] Acct: [id number] Name: KIMBERLY JEONG Rep #: [id number] : 1995 28 From: Bibiana Weathers MD PCP: Dr. Surjit Aguirre MD Status:ADM IN Location: [address] Assessment Plan (1) Sterilization: (2) Previous section: (3) S/P : Maternal Data Information Final RADHA: 09/08/24 Gestational age: 38 Operative Report (OB) Cecarean Details Procedure Type: low transverse (with bilateral salpingectomy) Date of Procedure: 08/18/24 Procedure Start Time: 00:13 Procedure Stop Time: 00:57 Time of Delivery: 00:17 Pre-Operative Diagnosis: Repeat Elective and Desires elective sterilization Post-Operative Diagnosis: Same as Pre-operative diagnosis Classification: JEFERSON Type of Anesthesia: Spinal Antibiotic Given: Ancef 2 grams IV x1 Drain: Andrew to straight drain Estimated Blood Loss: 1000 cc Fluids Replaced: 1000 cc Findings Description of surgery: Patient presented with frequent painful contractions and 3 cm with a previous and declining TOLAC. Patient was taken to the OR where spinal anesthesia was placed. A Andrew was placed in her bladder. She was prepped and draped in the normal sterile fashion. A Pfannenstiel incision was made and carried down to the underlying fascia. The fascia was incised in the midline and extended laterally. The fascia was dissected from the muscle. The muscles divided in the midline. The peritoneum was entered bluntly and extended manually. A bladder blade was placed. A bladder flap was created. A low transverse incision was made and extended bluntly. The head was elevated to the incision. The shoulders delivered easily. There was a cord around the neck x 1. The cried upon delivery. The cord was cut and clamped. The placenta was delivered with zarina traction. The uterus was exteriorized and cleared of all clot and debris. The incision was repaired with 1-0 Vicryl x 2. The LigaSure was used to transect the mesosalpinx of both fallopian tubes Removing the tubes from the fimbriated end to the cornua. Hemostasis was obtained. The uterus was returned the abdomen. The gutter cleared of all clots. The peritoneum was closed with 2-0 Monocryl. The fascia was closed with 1-0 Vicryl. The subcutaneous tissue was reapproximated with 2-0 Monocryl The skin was closed with 4-0. I performed the major parts of the procedure with the RFNA assisting with retraction and closing the skin. The sponge lap and needle count was correct x 2 Surgical findings: normal uterus tubes and ovaries. CAN x 1 Presentation: Vertex Amniotic Membrane Rupture Type: Artificial Amniotic Fluid Description: Clear Placental Delivery Description: Expressed and Manual Removal Placenta Disposition: [facility] Specimen collected: Yes Description of specimen(s) removed: fallopian tubes Cord Vessel Description: 3 Vessels Cord Entanglement: Around neck x 1, loose Nuchal Cord Compression: Without compression A gender: Male (1 minute): 9 (5 minute): 9 Delayed Cord Clamping: Yes Automotive Designer director of medicare: Yes Pcb Design Engineer: Lucas Dominguez Tasks completed by first aid trainer: Opening closing and Retracting Additional licensed physical therapist assistant?: No Complications Complications: No 08/18/24 0105 Cosigner Signature (if applicable): CC: Dr. Bibiana Weathers MD; Dr. Surjit Aguirre MD Signed Normal [facility] Pathology Specimen OBon PATH. Spec OB SEE PATHOLOGY REPORT Normal [facility] Comment on above: Order Comment: Send Specimen For (Specify): Studies @ [facility] Lab:Routine Time of Procedure: 16 Date of Procedure: 08/18/24 Reason specimen being sent to pathology (Hx/complications): TUBAL WITH REPEAT Type of specimen: Fallopian Tube Type of procedure performed: Tubal Ligation Result Comment: Spec imen submitted to Anatomical Pathology Department for testing. Performed By: #### L 350.1800 #### [facility] [address] [place], [address] Surgery Specimen Level IIon 08-18-2024 Surgery Specimen Level II Patient Age/Sex Location Account Attending Physician KIMBERLY JEONG 28/F WP [id number] Dr. Bibiana Weathers MD Specimen: [id number] Received: 08/19/24 Status: VELMA Valles Num: [id number] Spec Type: FALL TUBES Subm Dr: Dr. Bibiana Weathers MD HEADER OPERATION: Tubal ligation with repeat section PRE-OP DIAGNOSIS: Tubal ligation TISSUE SUBMITTED: Bilateral fallopian tubes MICROSCOPIC DIAGNOSIS Bilateral fallopian tubes, salpingectomy: Bilateral fallopian tubes, no pathologic diagnosis. REX: 08/20/2024 MICROSCOPIC DESCRIPTION Slides are reviewed. GROSS DESCRIPTION Received in fixative is one container labeled with the patient's name and designated bilateral fallopian tubes. The specimen consists of bilateral fallopian tubes including fimbrial ends measuring 6.0 cm in length and 1.0 cm in diameter and 5.0cm in length and 1.0cm in diameter. The fallopian tubes are not identified as right or left. Sections reveal unremarkable cut surfaces. Reduction Furnace Operator Helper sections are submitted in two cassettes with each cassette containing one fallopian tube. / REX: 08/19/2024 TC:4 CPT: 12379 x2 Patient Age/Sex Location Account Attending Physician KIMBERLY JEONG 28/ WP [id number] Dr. Bibiana Weathers MD Signed (signature on file) Dr. Lboo Bennett MD 08/20/24 1138 Normal [facility] Comment on above: Performed By: #### L 100.0500 #### [facility] [address] [place], [address] CBC W/Diff, Automatedon 12-3 -2023 Absolute Lymph 3.11 X10 3/uL Normal 0.83-4.51 [facility] Comment on above: Performed By: #### L 100.0500 #### [facility] [address] [place], [address] Absolute Neut 7.3 X10 3/uL Normal 2.0-7.7 [facility] Comment on above: Performed By: #### L 100.0500 #### [facility] [address] [place], [address] Basophils/100 WBC (Bld) 0.3 % Normal 0-1 [facility] Comment on above: Performed By: #### L 100.0500 #### [facility] [address] [place], [address] Eosinophils/100 WBC (Bld) 0.6 % Normal 0-5 [facility] Comment on above: Performed By: #### L 100.0500 #### [facility] [address] [place], [address] Erythrocyte distribution width (RBC) [Ratio] 17.7 % High 11.6-14.6 [facility] Comment on above: Performed By: #### L 100.0500 #### [facility] [address] [place], [address] Hematocrit (Bld) [Volume fraction] 28.3 % Low 37-47 [facility] Comment on above: Performed By: #### L 100.0500 #### [facility] [address] [place], [address] Hemoglobin (Bld) [Mass/Vol] 8.1 g/dL Low 12.0-15.0 [facility] Comment on above: Performed By: #### L 100.0500 #### [facility] [address] [place], [address] IG% 1.400 High 0.0-0.9 [facility] Comment on above: Result Comment: IG% - Immature Granulocytes (promyelocytes, myelocytes and metamyelocytes) > 1% indicates that a LEFT SHIFT is Present. Performed By: #### L 100.0500 #### [facility] [address] [place], [address] Lymphocytes/100 WBC (Bld) 27.3 % Normal 19-41 [facility] Comment on above: Performed By: #### L 100.0500 #### [facility] [address] [place], [address] MCH (RBC) [Entitic mass] 19.3 pg Low 27.0-32.0 [facility] Comment on above: Performed By: #### L 100.0500 #### [facility] [address] [place], [address] MCHC (RBC) [Mass/Vol] 28.6 g/dL Low 32-36 [facility] Comment on above: Performed By: #### L 100.0500 #### [facility] [address] [place], [address] MCV (RBC) [Entitic vol] 67.5 fL Low 81-99 [facility] Comment on above: Performed By: #### L 100.0500 #### [facility] [address] [place], [address] Monocytes/100 WBC (Bld) 5.9 % Normal 0-10 [facility] Comment on above: Performed By: #### L 100.0500 #### [facility] [address] [place], [address] Neutrophils/100 WBC (Bld) 64.5 % Normal 47-70 [facility] Comment on above: Performed By: #### L 100.0500 #### [facility] [address] [place], [address] Nucleated RBC (Bld) [#/Vol] 0.8 10*3/uL Normal 0-5 [facility] Comment on above: Performed By: #### L 100.0500 #### [facility] [address] [place], [address] Platelet mean volume (Bld) [Entitic vol] 10.6 fL Normal 6.2-12.0 [facility] Comment on above: Performed By: #### L 100.0500 #### [facility] [address] [place], [address] Platelets (Bld) [#/Vol] 319 10*3/uL Normal 150-450 [facility] Comment on above: Performed By: #### L 100.0500 #### [facility] [address] [place], [address] RBC (Bld) [#/Vol] 4.19 10*6/uL Low 4.2-5.4 [facility] Comment on above: Performed By: #### L 100.0500 #### [facility] [address] [place], [address] RDW SD 41.9 fl Normal 35.1-43.9 [facility] Comment on above: Performed By: #### L 100.0500 #### [facility] [address] [place], [address] WBC (Bld) [#/Vol] 11.4 10*3/uL High 4.4-11.0 [facility] Comment on above: Performed By: #### L 100.0500 #### [facility] [address] [place], [address] H AND P Exam - OB/GYNon 12-3 H&P Exam - THIRD STEEL POURER [facility] Medical Records Department [address] [place] [address] H P Exam - THIRD STEEL POURER 08/17/24 2256 MR#: [id number] Acct: [id number] Name: KIMBERLY JEONG Rep #: [id number] : 1995 28 From: Bibiana Weathers MD PCP: Dr. Surjit Aguirre MD Status:ADM IN [facility] - General General Date of Admission: 08/17/24 Date of Service: 08/17/24 Chief Complaint: contractions HPI Narrative KIMBERLY JEONG, is a 28 F who presents with contractions all day. Getting closer and and stronger. Previous at 36 weeks. Plans repeat with tubal 3 cm contractions q 2-5 minutes Maternal Data Information Final RADHA: 09/08/24 Gestational age: 36+6 PFSH [facility] Medical History (Updated 08/17/24 @ 23:[address] Bibiana Weathers MD) 36 weeks gestation of History of pre-term labor Nausea and vomiting during Postoperative pain History of depression Myocarditis History of pre-term labor depression Anxiety Depression Migraine History of delivery Home Medications ???Medication ???Instructions ???Recorded ???Last Taken ???Type vitamins-iron fumarate 65 1 tab PO DAILY 01/01/22 01/04/22 08:00 History mg iron-folic acid 1 mg tablet duloxetine 60 mg capsule,delayed 60 mg PO DAILY 01/31/24 Unknown History release doxylamine succinate 25 mg tablet 25 mg PO QHS PRN nausea and 02/01/24 Unknown Rx (Sleep Aid (doxylamine)) vomiting #30 tabs famotidine 20 mg tablet (Pepcid) 20 mg PO BID #60 tabs 02/01/24 Unknown Rx ondansetron 4 mg disintegrating 4 mg PO Q8H PRN nausea and 02/01/24 Unknown Rx tablet vomiting #60 tabs pyridoxine (vitamin B6) 50 mg 50 mg PO BID #60 tabs 02/01/24 Unknown Rx tablet promethazine 25 mg tablet 25 mg PO Q6H PRN nausea and 02/02/24 Unknown Rx vomiting #20 tabs penicillin V potassium 500 mg 500 mg PO 4X/DAY #40 tabs 06/13/24 Unknown Rx tablet Allergy/AdvReac Type Severity Reaction Status Date / Time No Known Allergies Allergy Verified 08/17/24 21:09 Surgical History (Updated 08/17/24 @ 22:[address] Bibiana Weathers MD) History of surgery Previous section Delivery by section Inez teeth removed Social History Smoking Status: Never smoker History 3 Elective abortions Hx Para 2 Spontaneous abortions Hx # Term Pregnancies 0 Ectopic pregnancies Hx # Pregnancies 2 Multiple births # of living children 2 NST FHR Rate Baby A Baseline: 125 Variability:: Moderate Accelerations:: 15 x 15 Decelerations:: None NST Reactive:: Yes FHR Category:: Category I Uterine Activity:: q 2-5 ROS Constitutional Constitutional: Denies fatigue, fever(s) or malaise Eyes Eyes: Denies change in vision ENT HEENT: Denies dizziness or headache(s) Cardiovascular Cardiovascular: Denies chest pain, dyspnea or lightheadedness Respiratory/Chest Respiratory/Chest: Denies cough or dyspnea Gastrointestinal Gastrointestinal: Denies change in bowel habits Genitourinary Genitourinary: Denies burning urination or genital lesions Integumentary Integumentary: Denies rash Neurologic Neurologic: Denies confusion, dizziness, headache(s), numbness or weakness Vital Signs Vital Signs Vital Signs: 08/17/24 21:04 08/17/24 21:04 08/17/24 21:04 Temperature Temperature Source Temporal Pulse Rate 53 L Respiratory Rate Blood Pressure 138/75 H Blood Pressure Mean BP Systolic 138 BP Diastolic 75 Blood Pressure Source Blood Pressure Position Blood Pressure Location Pulse Ox Oxygen Delivery Method 08/17/24 21:04 08/17/24 21:04 08/17/24 21:05 Temperature 98.3 F Temperature Source Pulse Rate 65 Respiratory Rate 16 Blood Pressure Blood Pressure Mean BP Systolic BP Diastolic Blood Pressure Source Blood Pressure Position Blood Pressure Location Pulse Ox Oxygen Delivery Method 08/17/24 21:05 08/17/24 22:41 08/17/24 22:41 Temperature Temperature Source Pulse Rate 71 Respiratory Rate Blood Pressure 143/88 H Blood Pressure Mean BP Systolic 143 BP Diastolic 88 Blood Pressure Source Blood Pressure Position Blood Pressure Location Pulse Ox 99 Oxygen Delivery Method 08/17/24 22:41 08/17/24 22:41 08/17/24 22:41 Temperature 97.2 F L Temperature Source Temporal Pulse Rate Respiratory Rate 16 Blood Pressure Blood Pressure Mean BP Systolic BP Diastolic Blood Pressure Source Blood Pressure Position Blood Pressure Location Pulse Ox Oxygen Delivery Method 08/17/24 22:41 08/17/24 22:42 08/17/24 22:42 (more content not included)... Normal [facility] L509.8000on 08-17-2024 Syphilis Abs Non-Reactive Normal [facility] Comment on above: Performed By: #### L 509.8000 #### [facility] [address] [place], [place], [address] Type AND Screenon 08-17-2024 ABO and Rh group Nom (Bld) Blood group A Rh(D) positive Normal [facility] Comment on above: Order Comment: Comme nts: Day #1 Reason for Laboratory Test Performed By: #### L 100.0500 #### [facility] [address] [place], [place], [address] Urine Drug Screen (VISTA)on 08-17-2024 AMPHETAMINES Normal <1000 ng/mL [facility] Comment on above: Result Comment: Canc elled via OM: MD Ordered Performed By: #### L 505.5000 #### [facility] [address] [place], [address] BARBITIURATES Normal < 200 ng/mL [facility] Comment on above: Result Comment: Canc elled via OM: MD Ordered Performed By: #### L 505.5000 #### [facility] [address] [place], [address] BENZODIAZIPINE Normal < 200 ng/mL [facility] Comment on above: Result Comment: Canc elled via OM: MD Ordered Performed By: #### L 505.5000 #### [facility] [address] [place], [address] COCAINE Normal < 300 ng/mL [facility] Comment on above: Result Comment: Canc elled via OM: MD Ordered Performed By: #### L 505.5000 #### [facility] [address] [place], [address] DRUG CONFIRM Normal [facility] Comment on above: Result Comment: Canc elled via OM: MD Ordered Performed By: #### L 505.5000 #### [facility] [address] [place], [address] ECSTACY Normal < 500 ng/mL [facility] Comment on above: Result Comment: Canc elled via OM: MD Ordered Performed By: #### L 505.5000 #### [facility] [address] [place], [address] METHADONE Normal < 300 ng/mL [facility] Comment on above: Result Comment: Canc elled via OM: MD Ordered Performed By: #### L 505.5000 #### [facility] [address] [place], [address] OPIATES Normal < 300 ng/mL [facility] Comment on above: Result Comment: Canc elled via OM: MD Ordered Performed By: #### L 505.5000 #### [facility] [address] [place], [address] PCP Normal < 25 ng/mL [facility] Comment on above: Result Comment: Canc elled via OM: MD Ordered Performed By: #### L 505.5000 #### [facility] [address] [place], [address] THC Normal < 50 ng/mL [facility] Comment on above: Result Comment: Canc elled via OM: MD Ordered Performed By: #### L 505.5000 #### [facility] [address] [place], [address] VISTA UDS PH Normal [facility] Comment on above: Result Comment: Canc elled via OM: MD Ordered Performed By: #### L 505.5000 #### [facility] [address] [place], [address] AMPHETAMINES Negative Normal <1000 ng/mL [facility] Comment on above: Order Comment: CLEAN CATCH Performed By: #### M , #### [facility] [address] [place], [address] BARBITIURATES Negative Normal < 200 ng/mL [facility] Comment on above: Order Comment: CLEAN CATCH Performed By: #### M 100, #### [facility] [address] [place], [address] BENZODIAZIPINE Negative Normal < 200 ng/mL [facility] Comment on above: Order Comment: CLEAN CATCH Performed By: #### M 100, #### [facility] [address] [place], [address] COCAINE Negative Normal < 300 ng/mL [facility] Comment on above: Order Comment: CLEAN CATCH Performed By: #### M 100., #### [facility] [address] [place], [address] ECSTACY Negative Normal < 500 ng/mL [facility] Comment on above: Order Comment: CLEAN CATCH Performed By: #### M 100.678, L400.2010 #### [facility] [address] [place], [address] METHADONE Negative Normal < 300 ng/mL [facility] Comment on above: Order Comment: CLEAN CATCH Performed By: #### M 100.678, L400 #### [facility] [address] [place], [address] OPIATES Negative Normal < 300 ng/mL [facility] Comment on above: Order Comment: CLEAN CATCH Performed By: #### M 100.8, L4 #### [facility] [address] [place], [address] PCP Negative Normal < 25 ng/mL [facility] Comment on above: Order Comment: CLEAN CATCH Performed By: #### M 100.678, L400 #### [facility] [address] [place], [address] THC Positive Abnormal < 50 ng/mL [facility] Comment on above: Order Comment: CLEAN CATCH Performed By: #### M 100.678, L400 #### [facility] [address] [place], [address] VISTA UDS PH 5 Normal [facility] Comment on above: Order Comment: CLEAN CATCH Performed By: #### M 100.678, L400 #### [facility] [address] [place], [address] ROUTINE, GROUP B ST REP PCRon 08-16-2024 ROUTINE, GROUP B STREP PCR GROUP B STREP PCR: Negative for Group B Streptococcus by PCR. Normal [facility] Comment on above: Performed By: #### G BPCR ####[facility] [id number] [place] [id number] [place] URINE OB DIP B/Oon 4 Glucose Ql (U) Negative Neg mg/dL [facility] Interpretation and review of laboratory results Normal [facility] Protein.monoclonal (U) [Mass/Vol] Negative Neg mg/dL [facility] URINE OB DIP B/Oon 4 Glucose Ql (U) Negative Neg mg/dL [facility] Protein.monoclonal (U) [Mass/Vol] trace Neg mg/dL [facility] Examination level ultrasound on 07-22-2024 [facility] Radiology Study observation (narrative) [facility] Bacteria Ur Culton 4 Bacteria identified Cx Nom (U) ORGANISM ID: 1 10,000 -<50,000 CFU/ml Normal urogenital jeanne Normal [facility] Comment on above: Performed By: #### 6 30-4 ####[facility] LABCLIA [id number] [place] [id number] [facility] CNPNon 07-19-2024 CNPN Telephone (UCTR) KIMBERLY JEONG ([id number]) 1995 F Date Time Provider Department 07/19/24 MONTSERRAT MONTALVO [facility] During your visit today, we recorded the following information about you: Montserrat Montalvo PA 07/19/2024 7:09 AM Signed Please contact patient and let her know that she tested positive for Covid-19. Supportive treatment at home. Please advise patient to notify her OB. Jojo Stroud MA 07/19/2024 7:33 AM Signed Patient given results and verbalized understanding of instructions given. Jojo Stroud MA Allergies As of Date: 07/19/2024 Noted Allergy Reaction POLLEN 12/05/2011 14 - Other: See Comments Comments: Nasal congestion and drainage Date Reviewed: 07/18/2024 Reviewed by: Shannan Mcdonald MA - Fully Assessed Reason for Visit: Results [95] Prescriptions as of 07/19/2024 - multivitamin (CALIXTO ) 65 mg iron- 1 mg tab once daily. - famotidine (PEPCID) 20 mg tablet two times a day. - promethazine HCl (PHENERGAN ORAL) Take 25 mg by mouth every 6 hours. - ondansetron (ZOFRAN) 4 mg tablet Take 1 tablet by mouth every 8 hours as needed for nausea/vomiting. - traZODone (DESYREL) 50 mg tablet Problem List As Of Date 07/19/2024 Noted Resolved Pain in limb [M79.609] 01/22/2010 02/29/2020 Acute pain of left shoulder [M25.512] 09/17/2017 02/29/2020 History of viral myocarditis [Z86.79] 02/21/2020 Nausea and vomiting in [O21.9] 02/21/2020 08/22/2020 Depression affecting [O99.340, F32.A] 02/21/2020 UTI (urinary tract infection) in , ant*02/25/2020 08/22/2020 Tetrahydrocannabinol (THC) use disorder, mild, *02/29/2020 Encounter for supervision of normal first pregn*06/06/2020 08/22/2020 Abnormal glucose complicating [O99.81*07/04/2020 Anemia complicating , second trimester*07/04/2020 08/22/2020 Recurrent major depressive disorder, in partial*11/03/2020 02/04/2024 H/O delivery, currently [O09.8*06/12/2021 Family history of spina bifida [Z82.79] 06/12/2021 Unspecified injury of right ankle, subsequent e*09/10/2023 02/04/2024 Sprain of unspecified ligament of right ankle, *09/10/2023 02/04/2024 Injury of right ankle [S99.911A] 09/10/2023 02/04/2024 Sprain of right ankle [S93.401A] 09/10/2023 02/04/2024 Hyperemesis affecting , antepartum [O2*02/04/2024 Obesity affecting in first trimester *02/04/2024 History of section [Z98.891] 02/04/2024 Anxiety during [O99.340, F41.9] 02/04/2024 Encounter for screening for nuchal tr*04/14/2024 Heart palpitations [R00.2] 05/21/2024 Dizziness [R42] 05/21/2024 Uterine size-date discrepancy, third trimester *07/12/2024 Encounter Status:Closed by JOJO STROUD on 07/19/24 Normal [facility] UA DIP, URINE (POC)on 2023 BILIRUBIN UA (POCT) Negative Negative [facility] CLARITY UA (POCT) Clear [facility] COLOR UA (POCT) Yellow [facility] GLUCOSE UA (POCT) Negative Negative mg/dL [facility] Hemoglobin Ql (U) Negative Negative [facility] Interpretation and review of laboratory results Abnormal [facility] KETONE UA (POCT) 40 mg/dL Abnormal Negative [facility] LEUKOCYTES UA (POCT) Small Abnormal Negative [facility] NITRITE UA (POCT) Negative Negative [facility] PH UA (POCT) 7.0 4.5 - 8.0 [facility] Protein Ql (U) Negative Negative mg/dL [facility] SPECIFIC GRAVITY UA (POCT) 1.020 1.005 - 1.030 [facility] UROBILINOGEN UA (POCT) 0.2 Normal E.U./dL [facility] Location:[facility], [address], [place], [address] [facility] POINT OF CARE [facility] CNOVon 07-18-2024 CNOV Office Visit (UCWSTR ) KIMBERLY JEONG ([id number]) 1995 F Date Time Provider Department 07/18/24 8:30 AM OSWALDO LOPEZ During your visit today, we recorded the following information about you: Temperature Pulse Respiration Blood pressure 97.5 degrees 92/minute 16/minute 108/64 Weight 82.7 kg Oswaldo Lopez APRN.CNP 07/18/2024 8:55 AM Signed This note was created using Twengariter. Subjective Kimberly Jeong is a 28 year old female. Presents for 2 day history of cough, sob, congestion and sore throat. Currently 32 weeks . Objective BP 108/64 Pulse 92 Temp 36.4 ?C (97.5 ?F) (Right Tympanic) Resp 16 Wt 82.7 kg (182 lb 5.1 oz) LMP 12/07/2023 (Exact Date) SpO2 97% BMI 33.35 kg/m? Physical Exam PHYSICAL EXAMINATION: General appearance: Well appearing, alert, in no acute distress, well-hydrated, well nourished. Ears: External ears normal, canals clear, Negative findings: Left tympanic membrane normal. Mobility is good, Right tympanic membrane normal. Mobility is good Nose/Sinuses: Positive findings: mucosa erythematous and swollen, purulent rhinorrhea Oropharynx: Lips, mucosa, and tongue normal, teeth and gums normal, oropharynx normal Neck: Supple, no adenopathy; thyroid symmetric, normal size, no bruits Lungs: Lungs clear to auscultation. No wheezing, rhonchi, rales. Heart: RRR without murmur, gallop, or rubs. No ectopy Assessment and Plan ASSESSMENT/PLAN: 1. URI, acute - ICD9: 465.9, ICD10: J06.9 - Discussed viral etiology and rationale for treatment. - Symptomatic treatment with prn analgesia - Supportive care with fluids and rest - The patient may also use OTC decongestants prn, warm salt water gargles, throat lozenges and/or OTC throat spray as needed, and nasal saline gtts and suction prn. - Follow up in 3-5 days if symptoms persist or sooner if worsening of symptoms Oswaldo Lopez APRN.Oswaldo Molina APRN.EMRE 07/18/2024 10:43 AM Signed Addended by: OSWALDO LOPEZ on: 07/18/2024 10:43 AM Modules accepted: Orders Allergies As of Date: 07/18/2024 Noted Allergy Reaction POLLEN 12/05/2011 14 - Other: See Comments Comments: Nasal congestion and drainage Date Reviewed: 07/18/2024 Reviewed by: Shannan Mcdonald MA - Fully Assessed Reason for Visit: Cough [28] Cmt: With sore throat, SOB AND LEE x 2 days Primary Visit Diagnosis:URI, acute [J06.9] Order(s):COVID AND INFLUENZA A/B AND RSV PCR, ROUTINE [SQCVFLRS] Order #: [id number]. #:[id number] Prescriptions as of 07/18/2024 - multivitamin (CALIXTO ) 65 mg iron- 1 mg tab once daily. - famotidine (PEPCID) 20 mg tablet two times a day. - promethazine HCl (PHENERGAN ORAL) Take 25 mg by mouth every 6 hours. - ondansetron (ZOFRAN) 4 mg tablet Take 1 tablet by mouth every 8 hours as needed for nausea/vomiting. - traZODone (DESYREL) 50 mg tablet Problem List As Of Date 07/18/2024 Noted Resolved Pain in limb [M79.609] 01/22/2010 02/29/2020 Acute pain of left shoulder [M25.512] 09/17/2017 02/29/2020 History of viral myocarditis [Z86.79] 02/21/2020 Nausea and vomiting in [O21.9] 02/21/2020 08/22/2020 Depression affecting [O99.340, F32.A] 02/21/2020 UTI (urinary tract infection) in , ant*02/25/2020 08/22/2020 Tetrahydrocannabinol (THC) use disorder, mild, *02/29/2020 Encounter for supervision of normal first pregn*06/06/2020 08/22/2020 Abnormal glucose complicating [O99.81*07/04/2020 Anemia complicating , second trimester*07/04/2020 08/22/2020 Recurrent major depressive disorder, in partial*11/03/2020 02/04/2024 H/O delivery, currently [O09.8*06/12/2021 Family history of spina bifida [Z82.79] 06/12/2021 Unspecified injury of right ankle, subsequent e*09/10/2023 02/04/2024 Sprain of unspecified ligament of right ankle, *09/10/2023 02/04/2024 Injury of right ankle [S99.911A] 09/10/2023 02/04/2024 Sprain of right ankle [S93.401A] 09/10/2023 02/04/2024 Hyperemesis affecting , antepartum [O2*02/04/2024 Obesity affecting in first trimester *02/04/2024 History of section [Z98.891] 02/04/2024 Anxiety during [O99.340, F41.9] 02/04/2024 Encounter for screening for nuchal tr*04/14/2024 Heart palpitations [R00.2] 05/21/2024 Dizziness [R42] 05/21/2024 Uterine size-date discrepancy, third trimester *07/12/2024 Encounter Status:Closed by OSWALDO LOPEZ on 07/18/24 Normal [facility] COVID AND INFLUENZA A/B AND RSV PCR, ROUTINEon 07-18-2024 SARS-CoV-2 (COVID-19) RNA MARGARETTE+probe Ql (Unsp spec) SARS-COV-2 (AGENT OF COVID-19) RNA: Detected INFLUENZA A RNA: Not detected INFLUENZA B RNA: Not detected RESPIRATORY SYNCYTIAL VIRUS (RSV) RNA: Not detected Abnormal [facility] Comment on above: Performed By: #### C VFLRS ####[facility] LABCLIA [id number] [facility] [id number] [place] [address] [place] GLUCOSE GESTATIONAL, 1 HOURo n 07-01-2024 Glucose 1 Hr post Unsp challenge [Mass/Vol] 111 mg/dL Normal 74-179 [facility] Comment on above: Order Comment: Speci men Type: SWAB Ordering Facility: [facility] Address: [address] [place] [address] [place] [address] Result Comment: [facility] Congress of Obstetricians and Gynecologists (Mena/Jackie) guidelines state gestational diabetes mellitus is present when 2 or more of the plasma glucose concentrations meet or exceed the following levels: fastin mg/dl, 1 hr: 180 mg/dl, 2 hr: 155 mg/dl, and 3 hr: 140 mg/dl. Performed By: #### B KARRI CVTV #### [facility] CLIA [id number] [address] [place] [address] [place] GLUCOSE GESTATIONAL, 2 HOURo n 07-01-2024 Glucose 2 Hr post Unsp challenge [Mass/Vol] 103 mg/dL Normal 74-154 [facility] Comment on above: Order Comment: Specesther parsons Type: BLOOD SPECIMENOrdering Facility: [facility] Address: [address] [place] [address] Result Comment: [facility] Congress of Obstetricians and Gynecologists (Mena/The Rehabilitation Institutekeely) guidelines state gestational diabetes mellitus is present when 2 or more of the plasma glucose concentrations meet or exceed the following levels: fastin mg/dl, 1 hr: 180 mg/dl, 2 hr: 155 mg/dl, and 3 hr: 140 mg/dl. Performed By: #### G TGST2 ####[facility] [id number] [place] [address] [place] GLUCOSE GESTATIONAL, 3 HOURo n 07-01-2024 Glucose 3 Hr post Unsp challenge [Mass/Vol] 116 mg/dL Normal 74-139 [facility] Comment on above: Order Comment: Speci men Type: BLOOD SPECIMENOrdering Facility: [facility] Address: [address] [place] [address] Result Comment: [facility] Congress of Obstetricians and Gynecologists (Mena/Jackie) guidelines state gestational diabetes mellitus is present when 2 or more of the plasma glucose concentrations meet or exceed the following levels: fastin mg/dl, 1 hr: 180 mg/dl, 2 hr: 155 mg/dl, and 3 hr: 140 mg/dl. Performed By: #### G TGST3 ####[facility] LABCLIA [id number] [place] [address] [place] GLUCOSE GESTATIONAL, FASTING on 07-01-2024 Glucose post fast [Mass/Vol] 71 mg/dL Low 74-94 [facility] Comment on above: Order Comment: Speci men Type: SWAB Ordering Facility: [facility] Address: [address] [place] [address] Result Comment: [facility] Congress of Obstetricians and Gynecologists (Mena/Lyudmilastan) guidelines state gestational diabetes mellitus is present when 2 or more of the plasma glucose concentrations meet or exceed the following levels: fastin mg/dl, 1 hr: 180 mg/dl, 2 hr: 155 mg/dl, and 3 hr: 140 mg/dl. Performed By: #### B KARRI CVTV #### [facility] CLIA [id number] [address] [place] [address] [place] GESTATIONAL GLUCOSE SCREEN, 1-HOUR, 50 GRAM, NON-FASTINGon 06-24-2024 Glucose [Mass/Vol] 141 mg/dL High 74-134 [facility] Comment on above: Order Comment: Speci men Type: BLOOD SPECIMEN Ordering Facility: [facility] Address: [address] [place] [address] Result Comment: [facility] Congress of Obstetricians and Gynecologists (Rajesh/Jackie) guidelines state a gestational diabetes mellitus positive screen is made, in women not previously diagnosed with overt diabetes, when the 1 hr plasma glucose level is equal to or above 140 mg/dL. [facility] [employer] [facility] recommends a 135 mg/dL cutoff. Performed By: #### G LTGST #### [facility] CLIA [id number] [address] [place] [address] [place] CNCOon 06-15-2024 CNCO Letter Text Normal [facility] Emergency Department Summary on 06-13-2024 Emergency Department Summary [facility] Medical Records Department [address] [place] [address] Emergency Department Summary 06/13/24 MR#: [id number] Acct: [id number] Name: KIMBERLY JEONG Rep #: [id number] : 1995 From: Burton Modi PCP: Dr. Surjit Aguirre MD Status:DEP ER Location: ED HPI History of Present Illness Chief Complaint: Dental Narrative Narrative: G3 29-week present increasing right upper molar pain worsening for last 2 days. Had issues for last month. Dental appointment this past Friday. Been using Tylenol. Hot and cold sensitivities. No fevers. Prior similar symptoms: Yes PFSH PFSH Medical History Nausea and vomiting during Postoperative pain History of depression Myocarditis History of pre-term labor depression Anxiety Depression Migraine History of delivery Home Medications ???Medication ???Instructions ???Recorded ???Last Taken ???Type vitamins-iron fumarate 65 1 tab PO DAILY 01/01/22 01/04/22 08:00 History mg iron-folic acid 1 mg tablet duloxetine 60 mg capsule,delayed 60 mg PO DAILY 01/31/24 Unknown History release doxylamine succinate 25 mg tablet 25 mg PO QHS PRN nausea and 02/01/24 Unknown Rx (Sleep Aid (doxylamine)) vomiting #30 tabs famotidine 20 mg tablet (Pepcid) 20 mg PO BID #60 tabs 02/01/24 Unknown Rx ondansetron 4 mg disintegrating 4 mg PO Q8H PRN nausea and 02/01/24 Unknown Rx tablet vomiting #60 tabs pyridoxine (vitamin B6) 50 mg 50 mg PO BID #60 tabs 02/01/24 Unknown Rx tablet promethazine 25 mg tablet 25 mg PO Q6H PRN nausea and 02/02/24 Unknown Rx vomiting #20 tabs penicillin V potassium 500 mg 500 mg PO 4X/DAY #40 tabs 06/13/24 Unknown Rx tablet Allergy/AdvReac Type Severity Reaction Status Date / Time No Known Allergies Allergy Verified 04/06/24 11:27 Surgical History Delivery by section Inez teeth removed Social History Smoking Status: Never smoker ROS ROS ED Constitutional Constitutional ED: Denies chills, fever(s) or sweats Eyes Eyes: Denies change in vision ENT ENT ED: Reports other Details: Dental pain ; Denies dysphagia or sore throat Cardiovascular Cardiovascular: Denies chest pain Respiratory/Chest Respiratory/Chest: Denies cough Gastrointestinal Gastrointestinal: Denies abdominal pain, diarrhea, nausea or vomiting Genitourinary Genitourinary ED: Denies dysuria, hematuria or urinary frequency Musculoskeletal Musculoskeletal: Denies back pain, extremity pain or neck pain Integumentary Denies rash or wounds Neurologic Neurologic: Denies headache(s) EXAM Physical Exam Const Vital Signs: 06/13/24 01:59 Temperature 98 F Temperature Source Oral Pulse Rate 85 Respiratory Rate 18 Blood Pressure 133/85 H Blood Pressure Mean 101 Pulse Ox 98 Oxygen Delivery Method Room Air Positive well nourished and well developed General Appearance ED: well developed and NAD HEENT Reports moist mucous membranes HEENT Narrative: Tender tooth percussion #3, no clear cavities noted. No gum fluctuance. No sublingual edema. Airway patent. normocephalic and atraumatic Eyes EOMs intact bilaterally and conjunctivae normal General Eye ED: Yes normal appearance of both eyes Neck no lymphadenopathy and supple General: Negative for tenderness Chest Wall Chest: Negative for tenderness Resp normal respiratory effort and normal air movement Effort and Inspection: symmetric chest movement; Negative for respiratory distress Cardio regular rate, regular rhythm and no murmurs Peripheral Pulses: pulses 2+ throughout GI GI Narrative: Gravid abdomen, nontender Palpation: Negative for guarding or rebound tenderness present Back/Spine no CVA tenderness and no thoracic nor lumbar tenderness Extremity normal to inspection General Extremety ED: Negative for edema or tenderness General Extremity: Negative for edema Neuro oriented x3 and no sensory deficits noted Sensorium / Orientation: awake and alert Skin no rashes or lesions noted and no wounds MDM MDM MDM Narrative Medical decision making narrative: Interventions / MDM: Differential diagnosis: Dentalgia, Diagnosis considered but do not suspect: N/A My EKG interpretation: N/A Imaging independently reviewed and interpreted by myself: N/A External documents reviewed: N/A Test considered but not ordered:N/A ED course: Increasing dentalgia tooth #3 no clear abscess. Hot and cold sensitivities. She is , discussed dental block for which she agreed. Meds to bed with penicillin. She will keep her (more content not included)... [facility] CNOVon 06-09-2024 CNOV Office Visit (CARCMN ) ADENIKEKIMBERLY TERRELL ([id number]) 1995 F Date Time Provider Department 06/09/24 8:30 AM SAMI VORA CARCMN During your visit today, we recorded the following information about you: Pulse Respiration Blood pressure Weight 83/minute 16/minute 113/69 80.3 kg Sami Vora MD 06/09/2024 9:01 AM Signed [facility] Department of Cardiovascular Medicine SECTION OF CLINICAL CARDIOLOGY OUTPATIENT VISIT DATE June 09, 2024 OUTPATIENT VISIT TYPE ESTABLISHED PRIMARY CARE PHYSICIAN: Surjit Aguirre [address] [place] [address] REFERRING PHYSICIAN: Sami Vora [address] J2-4 [facility] [address] CHIEF COMPLAINT: Palpitations, , history of myocarditis [...] Recurrent major depressive disorder, in partial remission ([facility]) 11/03/2020 Sprain of right ankle 09/10/2023 Sprain [...] 12/07/2023 (Exact Date) SpO2 100% BMI 32.37 kg/m? No physical examination performed CARDIOVASCULAR MEDICINE TESTING: [...] systolic function is normal. EF = 58 ? 5% (2D biplane) Normal left ventricular diastolic function. - The right ventricle is normal in size. Right ventricular systolic function is normal. - Estimated right ventricular systolic pressure is 22 mmHg consistent with normal pulmonary artery pressures. Estimated right atrial pressure is 3 mmHg based on IVC (more content not included)... Normal [facility] ECHOon 06-07-2024 Echocardiography Echocardiography Report: Transthoracic Echo [facility] Date of service: 06/07/2024 9:09:29 AM Ordering physician: SAMI VORA Indication: Palpitations Technologist: Prasanth Belle [facility] Interpreting physician: Kadi Manjarrez MD PATIENT: Name: [...] * * Final * * * CC [employer] [facility] : [id number] Normal [facility] No Panel Informationon 06-07 CONCLUSIONS: - Exam [...] * * * Final * * * [facility] Echocardiography Report: Transthoracic Echo [facility] Date of service: 06/07/2024 9:09:29 AM Ordering physician: SAMI VORA Indication: Palpitations Technologist: Prasanth Belle [facility] Interpreting physician: Kadi Manjarrez MD PATIENT: Name: [...] interrogated. PERICARDIUM There is no pericardial effusion. [facility] Examination level ultrasound on 05-27-2024 Indication Cervical [...] Performed By: Meghana Mcmahon RDMS Read By: Julienne Gordon M.D. MATERNAL MEDICINE [facility] Radiology Study observation (narrative) [facility] Basic metabolic 2000 panelon 05-26-2024 Anion gap [Moles/Vol] 13 mmol/L 8 - 15 mmol/L [facility] Calcium [Mass/Vol] 8.9 mg/dL 8.5 - 10. 2 mg/dL [facility] Chloride [Moles/Vol] 103 mmol/L 98 - 107 mmol/L [facility] CO2 [Moles/Vol] 20 mmol/L Low 22 - 30 mmol/L [facility] Creatinine [Mass/Vol] 0.54 mg/dL Low 0.58 - 0.96 mg/dL [facility] GFR/1.73 sq M.predicted among non-blacks MDRD (S/P/Bld) [Vol rate/Area] 130 mL/min/{1.73_m2} - PINF [facility] Comment on above: Estimated Glomerular Filtration [...] [Mass/Vol] 75 mg/dL 74 - 99 mg/dL [facility] Comment on above: The [place] Diabete s Association (ADA) provides guidance for [...] Standards of Medical Care in Diabetes 2016, [place] Diabetes Association. Diabetes Care. 2016.39(Suppl 1). Interpretation and review of laboratory results Abnormal [facility] Potassium [Moles/Vol] 4.0 mmol/L 3.7 - 5.1 mmol/L [facility] Sodium [Moles/Vol] 136 mmol/L 136 - 144 mmol/L [facility] Urea nitrogen [Mass/Vol] 5 mg/dL Low 7 - 21 mg/dL [facility] Anion gap [Moles/Vol] 13 mmol/L Normal 8-15 [facility] Comment on above: Order Comment: Speci men Type: BLOOD SPECIMENOrdering Facility: [facility] Address: [address] [place] [address] Performed By: #### 2 4321-2, 3016-3 ####[facility] LABCLIA [id number] [place] [address] [place] Calcium [Mass/Vol] 8.9 mg/dL Normal 8.5-10.2 [facility] Comment on above: Order Comment: Speci men Type: BLOOD SPECIMENOrdering Facility: [facility] Address: [address] [place] [address] Performed By: #### 2 4321-2, 3015-3 ####[facility] LABCLIA [id number] [place] [address] [place] Chloride [Moles/Vol] 103 mmol/L Normal 98-107 [facility] Comment on above: Order Comment: Speci men Type: BLOOD SPECIMENOrdering Facility: [facility] Address: [address] [place] [address] Performed By: #### 2 432-2, 3 ####[facility] LABCLIA [id number] [place] [address] [place] CO2 [Moles/Vol] 20 mmol/L Low 22-30 [facility] Comment on above: Order Comment: Speci men Type: BLOOD SPECIMENOrdering Facility: [facility] Address: [address] [place] [address] Performed By: #### 2 432-2, 3 ####[facility] LABCLIA [id number] [place] [address] [place] Creatinine [Mass/Vol] 0.54 mg/dL Low 0.58-0.96 [facility] Comment on above: Order Comment: Speci men Type: BLOOD SPECIMENOrdering Facility: [facility] Address: [address] [place] [address] Performed By: #### 2 432-2, 3015-3 ####[facility]CLIA [id number] [place] [address] [place] Creatinine and Glomerular filtration rate.predicted panel (S/P/Bld) 130 mL/min/1.73m??? Normal >=60 [facility] Comment on above: Order Comment: Speci men Type: BLOOD SPECIMENOrdering Facility: [facility] Address: [address] [id number] Result Comment: Danae mated Glomerular Filtration Rate [...] actual GFR. Performed By: #### 2 4321-2, 6-3 ####[facility] [id number] [place] [address] [place] Glucose [Mass/Vol] 75 mg/dL Normal 74-99 [facility] Comment on above: Order Comment: Talia parsons Type: BLOOD SPECIMENOrdering Facility: [facility] Address: [address] [place] [address] Result Comment: The [place] Diabetes Association (ADA) provides guidance for cutoff [...] Standards of Medical Care in Diabetes 2016, [place] Diabetes Association. Diabetes Care. 2016.39(Suppl 1). Performed By: #### 2 4321-2, 3015-3 ####[facility] [id number] [place] [id number] [place] Potassium [Moles/Vol] 4.0 mmol/L Normal 3.7-5.1 [facility] Comment on above: Order Comment: Talia parsons Type: BLOOD SPECIMENOrdering Facility: [facility] Address: [address] [place] [place] [id number] Performed By: #### 2 4321-2, 3016-3 ####[facility] [id number] [place] [address] [place] Sodium [Moles/Vol] 136 mmol/L Normal 136-144 [facility] Comment on above: Order Comment: Speci men Type: BLOOD SPECIMENOrdering Facility: [facility] Address: [address] [place] [address] Performed By: #### 2 4321-2, 3016-3 ####[facility] [id number] [place] [address] [place] Urea nitrogen [Mass/Vol] 5 mg/dL Low 7-21 [facility] Comment on above: Order Comment: Speci men Type: BLOOD SPECIMENOrdering Facility: [facility] Address: [address] [place] [address] Performed By: #### 2 4321-2, 3016-3 ####[facility] [id number] [place] [address] [place] CBC W Auto Differential pane l (Bld)on 05-26-2024 Basophils (Bld) [#/Vol] 0.04 10*3/uL Normal <0.11 [facility] Comment on above: Order Comment: Speci men Type: BLOOD SPECIMENOrdering Facility: [facility] Address: [address] [place] [address] Performed By: #### 5 7021-8 ####[facility] [id number] [place] [address] [place] Basophils/100 WBC (Bld) 0.3 % Normal [facility] Comment on above: Order Comment: Speci men Type: BLOOD SPECIMENOrdering Facility: [facility] Address: [address] [place] [address] Performed By: #### 5 7021-8 ####[facility] [id number] [place] [address] [place] Differential cell count method Nom (Bld) Auto Normal [facility] Comment on above: Order Comment: Speci men Type: BLOOD SPECIMENOrdering Facility: [facility] Address: [address] [place] [address] Performed By: #### 5 7021-8 ####[facility] [id number] [place] [address] [place] Eosinophils (Bld) [#/Vol] 0.09 10*3/uL Normal <0.46 [facility] Comment on above: Order Comment: Speci men Type: BLOOD SPECIMENOrdering Facility: [facility] Address: [address] [place] [address] Performed By: #### 5 7021-8 ####[facility] [id number] [place] [address] [place] Eosinophils/100 WBC (Bld) 0.8 % Normal [facility] Comment on above: Order Comment: Speci men Type: BLOOD SPECIMENOrdering Facility: [facility] Address: [address] [place] [address] Performed By: #### 5 7021-8 ####[facility] [id number] [place] [address] [place] Erythrocyte distribution width (RBC) [Ratio] 14.9 % Normal 11.5-15.0 [facility] Comment on above: Order Comment: Speci men Type: BLOOD SPECIMENOrdering Facility: [facility] Address: [address] [place] [address] Performed By: #### 5 7021-8 ####[facility] [id number] [place] [address] [place] Hematocrit (Bld) [Volume fraction] 33.9 % Low 36.0-46.0 [facility] Comment on above: Order Comment: Speci men Type: BLOOD SPECIMENOrdering Facility: [facility] Address: [address] [place] [address] Performed By: #### 5 7021-8 ####[facility] [id number] [place] [address] [place] Hemoglobin (Bld) [Mass/Vol] 10.3 g/dL Low 11.5-15.5 [facility] Comment on above: Order Comment: Speci men Type: BLOOD SPECIMENOrdering Facility: [facility] Address: [address] [place] [address] Performed By: #### 5 7021-8 ####[facility] [id number] [place] [address] [place] Immature granulocytes (Bld) [#/Vol] 0.17 10*3/uL High <0.10 [facility] Comment on above: Order Comment: Speci men Type: BLOOD SPECIMENOrdering Facility: [facility] Address: [address] [place] [address] Performed By: #### 5 7021-8 ####[facility] [id number] [place] [address] [place] Immature granulocytes/100 WBC (Bld) 1.4 % Normal [facility] Comment on above: Order Comment: Speci men Type: BLOOD SPECIMENOrdering Facility: [facility] Address: [address] [place] [address] Performed By: #### 5 7021-8 ####[facility] [id number] [place] [address] [place] Lymphocytes (Bld) [#/Vol] 2.11 10*3/uL Normal 1.00-4.00 [facility] Comment on above: Order Comment: Speci men Type: BLOOD SPECIMENOrdering Facility: [facility] Address: [address] [place] [address] Performed By: #### 5 7021-8 ####[facility] [id number] [place] [address] [place] Lymphocytes/100 WBC (Bld) 17.6 % Normal [facility] Comment on above: Order Comment: Speci men Type: BLOOD SPECIMENOrdering Facility: [facility] Address: [address] [place] [address] Performed By: #### 5 7021-8 ####[facility] [id number] [place] [address] [place] MCH (RBC) [Entitic mass] 23.1 pg Low 26.0-34.0 [facility] Comment on above: Order Comment: Speci men Type: BLOOD SPECIMENOrdering Facility: [facility] Address: [address] [place] [address] Performed By: #### 5 7021-8 ####[facility] [id number] [place] [address] [place] MCHC (RBC) [Mass/Vol] 30.4 g/dL Low 30.5-36.0 [facility] Comment on above: Order Comment: Speci men Type: BLOOD SPECIMENOrdering Facility: [facility] Address: [address] [place] [address] Performed By: #### 5 7021-8 ####[facility] [id number] [place] [address] [place] MCV (RBC) [Entitic vol] 76.0 fL Low 80.0-100.0 [facility] Comment on above: Order Comment: Speci men Type: BLOOD SPECIMENOrdering Facility: [facility] Address: [address] [place] [address] Performed By: #### 5 7021-8 ####[facility] [id number] [place] [address] [place] Monocytes (Bld) [#/Vol] 0.82 10*3/uL Normal <0.87 [facility] Comment on above: Order Comment: Speci men Type: BLOOD SPECIMENOrdering Facility: [facility] Address: [address] [place] [address] Performed By: #### 5 7021-8 ####[facility] [id number] [place] [address] [place] Monocytes/100 WBC (Bld) 6.8 % Normal [facility] Comment on above: Order Comment: Speci men Type: BLOOD SPECIMENOrdering Facility: [facility] Address: [address] [place] [address] Performed By: #### 5 7021-8 ####[facility] [id number] [place] [address] [place] Neutrophils (Bld) [#/Vol] 8.76 10*3/uL High 1.45-7.50 [facility] Comment on above: Order Comment: Speci men Type: BLOOD SPECIMENOrdering Facility: [facility] Address: [address] [place] [address] Performed By: #### 5 7021-8 ####[facility] [id number] [place] [address] [place] Neutrophils/100 WBC (Bld) 73.1 % Normal [facility] Comment on above: Order Comment: Speci men Type: BLOOD SPECIMENOrdering Facility: [facility] Address: [address] [place] [address] Performed By: #### 5 7021-8 ####[facility] [id number] [place] [id number] [place] Nucleated RBC (Bld) [#/Vol] 10*3/uL Normal <0.01 [facility] Comment on above: Order Comment: Speci men Type: BLOOD SPECIMENOrdering Facility: [facility] Address: [address] [place], [place] [address] Performed By: #### 5 7021-8 ####[facility] [id number] [place] [address] [place] Nucleated RBC/100 WBC (Bld) [Ratio] 0.0 /100 WBC Normal [facility] Comment on above: Order Comment: Speci men Type: BLOOD SPECIMENOrdering Facility: [facility] Address: [address] [place] [address] Performed By: #### 5 7021-8 ####[facility] [id number] [place] [address] [place] Platelet mean volume (Bld) [Entitic vol] 10.9 fL Normal 9.0-12.7 [facility] Comment on above: Order Comment: Speci men Type: BLOOD SPECIMENOrdering Facility: [facility] Address: [address] [place] [address] Performed By: #### 5 7021-8 ####[facility] [id number] [place] [address] [place] Platelets (Bld) [#/Vol] 286 10*3/uL Normal 150-400 [facility] Comment on above: Order Comment: Speci men Type: BLOOD SPECIMENOrdering Facility: [facility] Address: [address] [place] [address] Performed By: #### 5 7021-8 ####[facility] [id number] [place] [address] [place] RBC (Bld) [#/Vol] 4.46 10*6/uL Normal 3.90-5.20 [facility] Comment on above: Order Comment: Speci men Type: BLOOD SPECIMENOrdering Facility: [facility] Address: [address] [place] [address] Performed By: #### 5 7021-8 ####[facility] [id number] [place] [address] [place] WBC (Bld) [#/Vol] 11.99 10*3/uL High 3.70-11.00 [facility] Comment on above: Order Comment: Speci men Type: BLOOD SPECIMENOrdering Facility: [facility] Address: [address] [place] [address] Performed By: #### 5 7021-8 ####[facility] [id number] [id number] OF [facility] CNOVon 05-26-2024 CNOV Office Visit (CARCMN ) ADENIKEKIMBERLY ([id number]) 1995 F Date Time Provider Department 05/26/24 10:00 AM SAMI VORA CARCMN During your visit today, we recorded the following information about you: Pulse Respiration Blood pressure Weight 91/minute 16/minute 108/65 80.7 kg Height 1.575 m Sami Vora MD 06/07/2024 1:32 PM Signed Heart, Vascular [facility] Thoracic [facility] Department of Cardiovascular Medicine SECTION OF CLINICAL CARDIOLOGY OUTPATIENT VISIT DATE May 26, 2024 OUTPATIENT VISIT TYPE NEW PRIMARY CARE PHYSICIAN : Surjit Aguirre [address] [place] [address] REFERRING PHYSICIAN: Rosario Garcia [address] [facility] [address] CHIEF COMPLAINT: Palpitations HISTORY OF PRESENT ILLNESS: [...] child and had been cleared by her php mysql developer (Dr. Devin Lay) when she was last [...] Shortness of (more content not included)... Normal [facility] [id number] 05-26-2024 ECG01 Ventricular Rate : 7 7 BPM Atrial Rate : 77 BPM P-R Interval : 128 ms QRS Duration : 90 ms Q-T Interval : 368 ms QTC Calculation(Bazett) : 416 ms Calculated P [place] : 55 degrees Calculated R [place] : 41 degrees Calculated T [place] : 21 degrees NORMAL SINUS RHYTHM NORMAL ECG Confirmed by RUSS MARTIN MD ([id number]) on 06/12/2024 3:37:21 PM NAME : KIMBERLY JEONG PID : [id number] : 1995 Gender : Female Race : ORD : Procedure Date : May 26 2024 09:21:11 Edit Date : Jun 12 2024 15:37:23 Diagnosis: NORMAL SINUS RHYTHM NORMAL ECG Confirmed by RUSS MARTIN MD ([id number]) on 06/12/2024 3:37:21 PM Test Reason : Location : 314 : J14 J1-4 Overread By : RUSS MARTIN MD Edited By : RUSS MARTIN MD Referred By : ROSARIO GARCIA Acquired by : KAREY CANELA Normal [facility] HOLTER MONITOR 48 HOURon HOLTER MONITOR 48 HOUR Holter Report : IMPRESSIONS AND FINDINGS: Underlying sinus rhythm/arrhythmia. Very frequent periods of sinus tachycardia 38%. Maximum hr 139 bpm. Minimum hr 59 bpm. Average hr 94 bpm. Patient event marker triggered multiple times correlating with sinus rhythm/sinus tachycardia hr (70-104) bpm. Patient noted no symptoms. 30 hours of recording available for analysis. Scanned on 06/02/2024 Claudia Kim Confirmed by NGOC ANDRADE MD ([id number]) on 09/13/2024 9:23:50 AM Hookup Date: 20240526 Hookup Time: 13201123 Recording Duration: 895938 S Minimum Heart Rate: 59 BPM Minimum Heart Rate Date/Time: 20240527748 Maximum Heart Rate: 139 BPM Maximum Heart Rate Date/Time: 20240526 520729 Average Heart Rate: 94 BPM Longest RR: 1.328 S Longest RR DATE/TIME: 20240527804 QRS complexes: 941259 Ventricular Ectopics: 0 Ventricular Isolated Beats: 0 Ventricular Bigeminal Cycles: 0 Ventricular Couplets: 0 Ventricular Runs: 0 Ventricular Beats in Runs: 0 Supraventricular Ectopics: 0 Supraventricular Isolated Beats: 0 Supraventricular Couplets: 0 Supraventricular Runs: 0 Supraventricular Beats in Runs: 0 Overreading Physician: NGOC ANDRADE MD Normal [facility] Reagin and Treponema pallidu m IgG and IgM [Interp]on 05-26-2024 T. pallidum IgG+IgM IA Ql (S) Non-Reactive Normal Nonreactive [facility] Comment on above: Order Comment: Speci men Type: SWAB [facility] Address: [address] [place] [address] Performed By: #### B VAMP, CVTV #### [facility] CLIA [id number] [address] [place] [address] [place] Reagin+T pallidum IgG+IgM Se rPl-Impon 05-26-2024 Reagin and Treponema pallidum IgG and IgM [Interp] Cannot exclude recent Treponemal infection if specimen collected within 7-10 days after appearance of suspect lesions or 2-3 weeks after an exposure. Clinical correlation is required. Normal [facility] Comment on above: Order Comment: Speci men Type: SWAB [facility] Address: [address] [place] [address] Performed By: #### B KARRI, CVTV #### [facility] CLIA [id number] [address] [place] [address] [place] THYROID STIMULATING HORMONEo n 05-26-2024 TSH Qn 1.640 m[IU]/L [facility] Comment on above: If the patient [...] Nascimento, et al. 2017 Guidelines of the [place] Thyroid Association for the Diagnosis and Management of Thyroid Disease during and the . Thyroid, 2017:27:3:315-389. TSH Qnon 05-26-2024 Interpretation and review of laboratory results Normal [facility] TSH SerPl-aCncon 05-26-2024 TSH Qn 1.640 m[IU]/L Normal 0.270-4.200 [facility] Comment on above: Order Comment: Speci men Type: BLOOD SPECIMENOrdering Facility: [facility] Address: [address] [place] [address] Result Comment: If t he patient is [...] Nascimento, et al. 2017 Guidelines of the [place] Thyroid Association for the Diagnosis and Management of Thyroid Disease during and the . Thyroid, 2017:27:3:315-389. Performed By: #### 2 4321-2, 3016-3 ####[facility] [id number] [address] [facility] Agnieszka 05-21-2024 CNPN Telephone (OBGYWM) KIMBERLY JEONG ([id number]) 1995 F Date Time Provider Department 05/21/24 ROSARIO GARCIA During your visit today, we recorded the following information about you: Maria Teresa Marques 05/21/2024 4:33 PM Signed I have called [place] [facility], [place] [facility], AND [facility] per patient. [place] AND [place] are checking with providers to work patient in soon. They will call patient. Allergies As of Date: 05/21/2024 Noted Allergy Reaction POLLEN 12/05/2011 14 - Other: See Comments Comments: Nasal congestion and drainage Date Reviewed: 05/21/2024 Reviewed by: Sarah Strauss MA - Fully Assessed Prescriptions as of 02/25/2025 - DULoxetine (CYMBALTA) 20 mg capsule Take 2 capsules by mouth once daily. - traZODone (DESYREL) 100 mg tablet Take 1 tablet by mouth daily at bedtime. - multivitamin (CALIXTO ) 65 mg iron- 1 mg tab once daily. Problem List As Of Date 05/21/2024 Noted Resolved Pain in limb [M79.609] 01/22/2010 [...] 02/04/2024 Encounter for screening for nuchal tr*04/14/2024 Heart palpitations [R00.2] 05/21/2024 Dizziness [R42] 05/21/2024 Encounter Status:Closed by CARMARIA TERESA PERDOMO on 02/25/25 [facility] VICK Telephone (OBGYWM) KIMBERLY JEONG ([id number]) 1995 F Date Time Provider Department 05/17/24 DANII WEINBERGWMarek During your visit today, we recorded the following information about you: Bibiana Hernandes RN 05/17/2024 8:53 AM Signed ----- Message from Danii Weinberg APRN.EMRE sent at 05/17/2024 7:17 AM EDT ----- Reviewed. Please add to record. Needs 1 more cervical length screening at 24 weeks. Danii Weinberg APRN.Bibiana Munoz RN 05/17/2024 8:54 AM Signed Patient notified. She would like to schedule in [place] since she works in [employer]. Please file order. We will then route to [facility] to assist with scheduling. Thank you. ASHLEE Giordano Emily, APRN.CNP 05/17/2024 8:59 AM Signed Signed. Danii Weinberg APRN.CNP Allergies As of Date: 05/17/2024 Noted Allergy Reaction POLLEN 12/05/2011 14 - Other: See Comments Comments: Nasal congestion and drainage Date Reviewed: 05/13/2024 Reviewed by: Bibiana Weathers MD - Fully Assessed Reason for Visit: Orders [681] Primary Visit Diagnosis:History of labor [Z87.51] Order(s):OBSTETRIC ULTRASOUND WHI [1720396] Order #: [id number]: 1 FUTURE Prescriptions as of 05/19/2024 - [...] Status:Closed by BIBIANA HERNANDES on 05/19/24 Normal [facility] Examination level ultrasound on 05-14-2024 Indication Detailed [...] 6 oz EFW by: Hadlock (HC-AC-FL) Extended Caponizer 5.7 mm CM 5.6 mm 51% Nicolaides [...] normal LVOT view: normal 3-vessel view: normal 5-devmle-ccpwyro view: normal Heart / Thorax Situs: situs [...] Katarzyna Benoit M.D. MATERNAL MEDICINE [facility] Examination level ultrasound on 05-13-2024 Radiology Study observation (narrative) [facility] Agnieszka 05-11-2024 CNPN Telephone (OBGYWM) KIMBERLY JEONG ([id number]) 1995 F Date Time Provider Department 05/11/24 DANII WEINBERG During your visit today, we recorded the following information about you: Konstantin Simpson MA 05/11/2024 10:06 AM Signed Received [employer] paperwork from employer. Awaiting patients response with amount of leave she is requesting. [place]I [place], [place] 05/11/2024 1:26 PM Signed [facility] paperwork completed and on providers desk for signature. TOI [place], [place] 05/12/2024 2:00 PM Signed [facility] paperwork has been completed and faxed to the number patient provided. Patient notified. Konstantin Simpson MA Allergies As of Date: 05/11/2024 Noted Allergy Reaction POLLEN 12/05/2011 14 - Other: See Comments Comments: Nasal congestion and drainage Date Reviewed: 03/09/2024 Reviewed by: Edvin Skaggs MA - Fully Assessed Prescriptions as [...] Encounter Status:Closed by KONSTANTIN SIMPSON on 05/12/24 Normal [facility] CNPNon 05-05-2024 CNPN Telephone (OBGYF2) KIMBERLY JEONG ([id number]) 1995 F Date Time Provider Department 05/05/24 FV OB MFM OBGYF2 During your visit today, we recorded the following information about you: Maria Teresa Quinn 05/05/2024 8:30 AM Signed LM for patient to call the office to reschedule her ultrasund scheduled for 05/06/2024 in [place] needs to be an hour anatomy scan Allergies As of Date: 05/05/2024 Noted Allergy Reaction POLLEN 12/05/2011 14 - Other: See Comments Comments: Nasal congestion and drainage Date Reviewed: 03/09/2024 Reviewed by: Edvin Skaggs MA - Fully Assessed Reason for [...] by MARIA TERESA QUINN on 05/05/24 Normal [facility] Examination level ultrasound on 04-14-2024 Indication Cervical [...] Biometry Standard EFW by: Hadlock (HC-AC-FL) Extended Caponizer 5.3 mm Other Structures FHR 149 bpm Anatomy Cranium: normal Lateral ventricles: normal Choroid plexus: normal Midline falx: normal Cavum septi pellucidi: normal Cerebellum: normal Cisterna magna: normal 4-chamber view: normal RVOT view: normal LVOT view: normal 3-dqhlua-trzzdpw view: normal Heart / Thorax Situs: situs solitus (normal) Diaphragm: normal Cord insertion: normal Stomach: normal Kidneys: normal Bladder: normal Maternal Structures Uterus / Cervix Cervix details: normal Approach: Transvaginal Cervical length 43.7 mm Ovaries / Tubes / Adnexa Rt ovary: Normal Lt ovary: Normal Performed By: Meghana Mcmahon RDMS Read By: Julienne Gordon M.D. MATERNAL MEDICINE [facility] Radiology Study observation (narrative) [facility] 12 Lead EKGon 04-06-[address] [facility] Cardiovascular Services [address] [place] [address] 12 Lead EKG 04/06/24 1300 MR#: [id number] Acct: [id number] Name: KIMBERLY JEONG Rep #: [id number] : 1995 28 From: Tiarra Casper MD Attending Dr: Status: DEP ER Ordering Dr: Eliseo Wick DO Date: 04/06/24 Location: ED Sex: F C Admitted: Test Reason : Blood Pressure : / mmHG Vent. Rate : 079 BPM Atrial Rate : 079 BPM P-R Int : 132 ms QRS Dur : 090 ms QT Int : 368 ms P-R-T Axes : 057 049 027 degrees QTc Int : 421 ms Sinus rhythm with marked sinus arrhythmia Otherwise normal ECG Confirmed by KAMILLA MCDUFFIE, DAJUAN ([id number]), editor book MILAGRO KAPOOR ([id number]) on 04/09/2024 6:36:14 AM Referred By: Confirmed By:VEE CASPER MD 04/09/24 0636 Date Tiarra Casper MD CC: Dr. Surjit Aguirre MD; Dr. Eliseo Wick DO Signed Normal [facility] Chest 1 View (Portable)on Chest 1 View (Portable) [facility] Imaging Services [address] [place] [address] [id number] Chest 1 View (Portable) MR#: [id number] Acct: [id number] Name: KIMBERLY JEONG Rep #: [id number] : 1995 F 28 From: Luigi mccartney MD PCP: Dr. Surjit Aguirre MD Status: REG ER Study: Chest 1 View (Portable) Date of Exam: 04/06/24 Exam# [id number] Ordering Dr: [place] [id number] STUDY: X-RAY CHEST REASON FOR EXAM: Female, 28 years old. Cough. Weakness and dizziness. Patient is 17 weeks . The patient was shielded appropriately. TECHNIQUE: Single AP portable view of the chest. COMPARISON: None. FINDINGS: The lungs are clear and expanded. There is no demonstrated pleural abnormality. Normal size heart. Normal mediastinum and donna. Normal visualized pulmonary arteries. Normal visualized aortic arch and descending thoracic aorta. Normal visualized thoracic spine. Normal visualized ribs, clavicles, and shoulders. There is no demonstrated abnormality of the visualized soft tissue structures of the upper abdomen. RAD/Chest 1 View (Portable) IMPRESSION: Normal x-ray examination of the chest. Electronically Signed: Luigi Price MD at 12:44 EDT Reading Location ID and State: [address] [place] [address] , Service support , CC: Dr. Surjit Aguirre MD; Dr. Eliseo Wick DO Clinical Services Manager: Signed Normal [facility] Comprehensive Metabolic Prof [facility] 04-06-2024 Albumin/Globulin [Mass ratio] 0.5 {ratio} Low 0.9-2.4 [facility] Comment on above: Performed By: #### M 100.678, #### [facility] [address] [place], [place], [address] BUN/CRE 5.7 RATIO Low 06-06 [facility] Comment on above: Performed By: #### M 100.678, #### [facility] [address] [place], [address] CA,Total 9.1 mg/dL Normal 8.5-10.1 [facility] Comment on above: Performed By: #### M 100.678, #### [facility] [address] [place], [address] Chloride [Moles/Vol] 109 mmol/L High 98-107 [facility] Comment on above: Performed By: #### M 100.678, L400.2010 #### [facility] [address] [place], [address] CO2 [Moles/Vol] 23.0 mmol/L Normal 21.0-32.0 [facility] Comment on above: Performed By: #### M 100.678, L400.2010 #### [facility] [address] [place], [address] Creatinine [Mass/Vol] 0.52 mg/dL Low 0.55-1.02 [facility] Comment on above: Result Comment: The validity of the calculated GFR GFRAA in patients over 70 years has not been determined. Clinical correlation is essential. Performed By: #### M 100.678, L400.2010 #### [facility] [address] [place], [address] ECRCL 156.51 ml/min Normal [facility] Comment on above: Performed By: #### M 100.678, L400.2010 #### [facility] [address] [place], [address] EST GFR - AA 181 mL/min Normal >60 [facility] Comment on above: Result Comment: Afri can Kosovan GFR Calc Performed By: #### M 100.678, L400.2010 #### [facility] [address] [place], [address] GAP 6 Normal 5-15 [facility] Comment on above: Performed By: #### M 100.678, L400.2010 #### [facility] [address] [place], [address] GFR/1.73 sq M.predicted among non-blacks MDRD (S/P/Bld) [Vol rate/Area] 149 mL/min/{1.73_m2} Normal >60 [facility] Comment on above: Result Comment: Non- GFR Calc Performed By: #### M 100.678, L400.2010 #### [facility] [address] [place], [address] Glucose [Mass/Vol] 96 mg/dL Normal 74-106 [facility] Comment on above: Performed By: #### M 100.678, L4.2010 #### [facility] [address] [place], [address] Potassium [Moles/Vol] 3.7 mmol/L Normal 3.5-5.1 [facility] Comment on above: Performed By: #### M 100.678, L4.2010 #### [facility] [address] [place], [address] Sodium [Moles/Vol] 138 mmol/L Normal 136-145 [facility] Comment on above: Performed By: #### M 100.678, L400.2010 #### [facility] [address] [place], [address] Urea nitrogen [Mass/Vol] 3 mg/dL Low 7-18 [facility] Comment on above: Performed By: #### M 100.678, L4.2010 #### [facility] [address] [place], [address] Emergency Department Summary on 04-06-2024 Emergency Department Summary [facility] Medical Records Department [address] [place] [address] Emergency Department Summary 04/06/24 MR#: [id number] Acct: [id number] Name: KIMBERLY JEONG Rep #: [id number] : 1995 28 From: Eliseo Wick DO PCP: Dr. Surjit Aguirre MD Status:REG ER Location: ED HPI History of Present Illness Chief Complaint: [facility] History Postoperative pain History of depression Myocarditis History of pre-term labor depression Anxiety Depression Migraine History of delivery Home Medications ???Medication ???Instructions ???Recorded ???Last Taken ???Type vitamins-iron fumarate 65 1 tab PO DAILY 01/01/22 01/04/22 08:00 History mg iron-folic acid 1 mg tablet duloxetine 60 mg capsule,delayed 60 mg PO DAILY 01/31/24 Unknown History release doxylamine succinate 25 mg tablet 25 mg PO QHS PRN nausea and 02/01/24 Unknown Rx (Sleep Aid (doxylamine)) vomiting #30 tabs famotidine 20 mg tablet (Pepcid) 20 mg PO BID #60 tabs 02/01/24 Unknown Rx ondansetron 4 mg disintegrating 4 mg PO Q8H PRN nausea and 02/01/24 Unknown Rx tablet vomiting #60 tabs pyridoxine (vitamin B6) 50 mg 50 mg PO BID #60 tabs 02/01/24 Unknown Rx tablet promethazine 25 mg tablet 25 mg PO Q6H PRN nausea and 02/02/24 Unknown Rx vomiting #20 tabs Allergy/AdvReac Type Severity Reaction Status Date / Time No Known Allergies Allergy Verified 04/06/24 11:27 Surgical History Delivery by section Inez teeth removed Social History Smoking Status: Never smoker EXAM Physical Exam Const Vital Signs: 04/06/24 11:24 04/06/24 11:25 04/06/24 13:24 Temperature 97.8 F Temperature Source Temporal Pulse Rate 102 H 86 Respiratory Rate 16 16 Respiratory Pattern Normal Blood Pressure 102/61 107/64 Blood Pressure Mean 74 78 Pulse Ox 97 99 Oxygen Delivery Method Room Air Room Air MDM MDM MDM Narrative Medical decision making narrative: HISTORY OF PRESENT ILLNESS: 28-year-old female presents with concern for diffuse weakness, dizziness sore throat cough runny nose. Notes son has croup. Notes she is probably 17 weeks . No she may be dehydrated. Denies chest pain, abdominal pain, vaginal bleeding, decreased movement or passage of any tissue. Denies any focal weakness numbness or loss of sensation. Denies any dysuria or hematuria. REVIEW OF SYSTEMS: Pertinent positives: As per HPI Pertinent negatives: As per HPI PHYSICAL EXAM: Nursing triage notes reviewed, Vital signs reviewed Constitutional: please see [facility] HENT: MMM Eyes: Pupils equal round and reactive to light, Extraocular muscles intact Neck: No stridor, no JVD, full neck ROM Lungs: Clear to auscultation, No wheezing or rales. No increased work of breathing, no conversational dyspnea, no accessory muscle use, no nasal flaring. No respiratory distress noted Heart: Regular rate and rhythm, No murmurs, No rubs and No gallops, 2+ distal pulses (radial, femoral, posterior tibial) in all extremities Abdomen: Soft, gravid uterus, there is no tenderness, rigidity, rebound or guarding, no obvious peritoneal signs, no palpable pulsatile abdominal masses, no auscultated abdominal bruit : No CVAT Extremities: No edema Neuro: No focal neurological deficits, cranial nerves II through XII intact, 5/5 strength in all extremities. Intact sensation to light touch in all extremities, 2+ reflexes bilateral patella tendons. Normal gait. No ataxia. Skin: No rash or lesions noted MEDICAL DECISION MAKING: Chief Complaint: As per HPI External records reviewed: Reviewed prior ED visits, prior imaging Factors affecting care: 17 weeks , second trimester [facility] Narrative: Patient was initially hemodynamically stable, afebrile and nontoxic-appearing. Exam without obvious focal cardiopulmonary, neurologic or abdominal abnormalities. I considered the following differential diagnosis: Dehydration, viral illness, UTI, electrolyte disturbance, arrhythmia I obtained a broad lab and imaging workup to further elucidate etiology of patient complaint. ALL IMAGES (IF OBTAINED) HAVE BEEN PERSONALLY REVIEWED AND INTERPRETED BY MYSELF. FHT 152 BMP without evidence of significant electrolyte abnormalities, no anion gap, no acute kidney injury. LFTs without evidence of hepatobiliary obstruction Urinalysis shows no evidence of urinary inflammation suggestive of UTI or asymptomatic bacteriuria. I have personally reviewed the patient's chest x-ray. Chest x-ray is unremarkable for pulmonary edema (more content not included)... Normal [facility] Liver Profileon 04-06-2024 Albumin [Mass/Vol] 2.2 g/dL Low 3.2-5.0 [facility] Comment on above: Performed By: #### M 100.678, #### [facility] [address] [place], [address] ALK P 64 U/L Normal 45-117 [facility] Comment on above: Performed By: #### M 100.678, #### [facility] [address] [place], [address] ALT [Catalytic activity/Vol] 13 U/L Normal 13-56 [facility] Comment on above: Performed By: #### M 100.678, #### [facility] [address] [place], [address] AST [Catalytic activity/Vol] 10 U/L Low 15-37 [facility] Comment on above: Performed By: #### M 100.678, #### [facility] [address] [place], [address] Bilirubin [Mass/Vol] 0.20 mg/dL Normal 0.20-1.00 [facility] Comment on above: Result Comment: For patients on eltrombopag therapy, use of Dimension [place] TBIL is not recommended. Performed By: #### M 100.678, #### [facility] [address] [place], [address] Bilirubin.direct [Mass/Vol] 0.07 mg/dL Normal 0.00-0.30 [facility] Comment on above: Performed By: #### M 100.678, L4 #### [facility] [address] [place], [address] Globulin (S) [Mass/Vol] 4.3 g/dL High 2.2-4.2 [facility] Comment on above: Performed By: #### M 100.678, #### [facility] [address] [place], [address] T PROT 6.5 g/dL Normal 6.4-8.2 [facility] Comment on above: Performed By: #### M 100.678, L400.2010 #### [facility] [address] [place], [address] M100.678on 04-06-2024 M100.678 Pending SARS-CoV-2 (COVID 19) Negative INFLUENZA A Negative INFLUENZA B Negative RSV PCR Negative Normal [facility] Comment on above: Performed By: #### M 100.678, L400.2010 #### [facility] [address] [place], [address] Urinalysis, Routine (Dipstic k)on 04-06-2024 BILIRUBIN URINE Negative Normal Negative [facility] Comment on above: Order Comment: CLEAN CATCH Performed By: #### M 100.8, L4.2010 #### [facility] [address] [place], [address] Clarity (U) Clear Normal Clear [facility] Comment on above: Order Comment: CLEAN CATCH Performed By: #### M 1008, L400.2010 #### [facility] [address] [place], [address] Color (U) Yellow Normal Yellow [facility] Comment on above: Order Comment: CLEAN CATCH Performed By: #### M 100.678, L400.2010 #### [facility] [address] [place], [address] GLUCOSE, UR Normal Normal Normal [facility] Comment on above: Order Comment: CLEAN CATCH Performed By: #### M 100.678, L400.2010 #### [facility] [address] [place], [address] KETONE UR 50 mg/dl Abnormal Negative [facility] Comment on above: Order Comment: CLEAN CATCH Performed By: #### M , #### [facility] [address] [place], [address] LEUK ESTERASE Negative Normal Negative [facility] Comment on above: Order Comment: CLEAN CATCH Performed By: #### M , #### [facility] [address] [place], [address] Nitrite Ql (U) Negative Normal Negative [facility] Comment on above: Order Comment: CLEAN CATCH Performed By: #### M , #### [facility] [address] [place], [address] OCCULT BLOOD-UR Negative Normal Negative [facility] Comment on above: Order Comment: CLEAN CATCH Performed By: #### M , #### [facility] [address] [place], [address] pH UR 6.5 Normal 5.0 - 8.0 [facility] Comment on above: Order Comment: CLEAN CATCH Performed By: #### M , #### [facility] [address] [place], [address] PROT DIPSTX 15 mg/dl Abnormal Negative [facility] Comment on above: Order Comment: CLEAN CATCH Performed By: #### M , #### [facility] [address] [place], [address] SP.GR. DIPSTX 1.015 Normal 1.002-1.030 [facility] Comment on above: Order Comment: CLEAN CATCH Performed By: #### M , #### [facility] [address] [place], [address] UROBILI 1 mg/dl Abnormal Normal [facility] Comment on above: Order Comment: CLEAN CATCH Performed By: #### M 100.678, L400.2010 #### [facility] [place], [address] Agnieszka 03-31-2024 CNPN Telephone (OBGYWM) ADENIKEKIMBERLY SMITH Librado ([id number]) 1995 F Date Time Provider Department 03/31/24 DANII WEINBERG During your visit today, we recorded the following information about you: Justin Peterson RN 03/31/2024 9:03 AM Signed Received fax from [email or web address] stating Pt [[employer] ID [id number]/ Phone # ] has been noncompliant since [...] and drainage Date Reviewed: 03/09/2024 Reviewed by: Edvin Skaggs MA - Fully Assessed Prescriptions as [...] Status:Closed by JUSTIN PETERSON on 03/31/24 Normal [facility] CNCOon 03-26-2024 CNCO Letter Text Normal [facility] nuchal translucency me asured by Mari 03-09-2024 Indication First trimester anatomic survey Maternal obesity, BMI >30 Impression REMOTE READ The patient is referred for a first trimester anatomy scan including nuchal translucency measurement as clinically indicated. - Single, live, intrauterine . - [place] rump length measurement is consistent with the [...] view: suboptimal 4-chamber view with color: suboptimal [id number] view: suboptimal Abdominal cord insertion: normal Stomach: [...] By: Johanna Sorto RDMS, RVT Read By: Julienne Gordon M.D. MATERNAL MEDICINE [facility] Radiology Study observation (narrative) [facility] [id number] PLUSon 03-09-2024 Cell-free DNA./Cell-free DNA.total Dosage of chromosome-specific cfDNA (cfDNA) [Molar fraction] 9% Normal [facility] Comment on above: Order Comment: Speci men Type: BLOOD SPECIMENOrdering Facility: [facility] Address: [address] [place] [address] Performed By: #### M AT21 ####[facility] LABCLIA [id number] [place] [address] Chr 13+18+21+X+Y aneuploidy Dosage of chromosome-specific cfDNA Ql (cfDNA) Negative Normal [facility] Comment on above: Order Comment: Speci men Type: BLOOD SPECIMENOrdering Facility: [facility] Address: [address] [place] [address] Performed By: #### M AT21 ####[facility] LABCLIA [id number] [place] [address] Chr 21 trisomy Dosage of chromosome-specific cfDNA Ql (cfDNA) Negative Normal [facility] Comment on above: Order Comment: Speci men Type: BLOOD SPECIMENOrdering Facility: [facility] Address: [address] [place] [address] Performed By: #### M AT21 ####[facility] LABCLIA [id number] [place] [address] Chr X and Y aneuploidy risk Sequencing Ql (cfDNA) [Interp] Not detected Normal [facility] Comment on above: Order Comment: Speci men Type: BLOOD SPECIMENOrdering Facility: [facility] Address: [address] [place] [address] Result Comment: Not Detected Not Detected Performed By: #### M AT21 ####[facility] LABCLIA [id number] [place] [address] Citation Jared (Reference lab test) Comment Normal [facility] Comment on above: Order Comment: Speci men Type: BLOOD SPECIMENOrdering Facility: [facility] Address: [address] [place] [address] Result Comment: 1. P tone DELGADO, et al. Jie Med. 2012;14(3):296-305. 2. Elías DONALD et al. Prenat Diag. 2013;33(6):591-597. 3. Maicol C, et al. Clin Chem. 2015 Apr;61(4):608-616. 4. Barry DELGADO, et al. Jie Med. 2011;13(11):913-920. 5. ACOG/SMFM Practice Bulletin No. 226, May 2020. Performed By: #### M AT21 ####[facility] LABCLIA [id number] [place] [address] Gestational age Estimated from conception date Hernández Normal [facility] Comment on above: Order Comment: Speci men Type: BLOOD SPECIMENOrdering Facility: [facility] Address: [address] [place] [address] Performed By: #### M AT21 ####[facility] LABCLIA [id number] [place] [address] GESTATIONALAGE AGE > OR = 9W Yes Normal [facility] Comment on above: Order Comment: Speci men Type: BLOOD SPECIMENOrdering Facility: [facility] Address: [address] [place] [address] Performed By: #### M AT21 ####[facility] LABCLIA [id number] [place] [address] Laboratory comment Jared (Report) Comment Normal [facility] Comment on above: Order Comment: Talia parsons Type: BLOOD SPECIMENOrdering Facility: [facility] Address: [address] [place] [address] Result Comment: The MaterniT(R) 21 PLUS laboratory-developed test (LDT) analyzes circulating cell-free DNA from a maternal blood sample. This test is used for screening purposes and not diagnostic. Clinical correlation is recommended. Validation data on twin pregnancies is limited and the ability of this test to detect aneuploidy in higher multiple gestations has not yet been validated. Performed By: #### M AT21 ####[facility] LABCLIA [id number] [place] [address] rehabilitation director name Nom (Provider) Comment Normal [facility] Comment on above: Order Comment: Talia parsons Type: BLOOD SPECIMENOrdering Facility: [facility] Address: [address] [place] [address] Result Comment: This specimen showed an expected representation of chromosome 21, 18 and 13 material. Clinical correlation is suggested. Comment Ha Hill MD, PhD, Director, [employer] Performed By: #### M AT21 ####[facility] LABCLIA [id number] [place] [address] LIMITATIONS OF THE TEST Comment Normal [facility] Comment on above: Order Comment: Talia parsons Type: BLOOD SPECIMENOrdering Facility: [facility] Address: [address] [place] [address] Result Comment: Whmicheal nascimento the results of these tests are highly [...] and Fragmin(R)). Performed By: #### M AT21 ####[facility] LABCLIA [id number] [place] [address] Monosomy X risk Dosage of chromosome-specific cfDNA Ql (Plasma cell-free+WBC DNA) [Interp] Not detected Normal [facility] Comment on above: Order Comment: Speci men Type: BLOOD SPECIMENOrdering Facility: [facility] Address: [address] [place] [address] Performed By: #### M AT21 ####[facility] LABCLIA [id number] [place] [address] NEGATIVE PREDICTIVE VALUE Note Normal [facility] Comment on above: Order Comment: Speci men Type: BLOOD SPECIMENOrdering Facility: [facility] Address: [address] [place] [address] Result Comment: The Negative Predictive Value (NPV) for trisomy 21, 18, and 13 is greater than 99%. The NPV for SCA and ESS cannot be calculated as SCA and ESS are only reported when an abnormality is detected. Performed By: #### M AT21 ####[facility] LABCLIA [id number] [place] [id number] NOTE Comment Normal [facility] Comment on above: Order Comment: Specesther men Type: BLOOD SPECIMENOrdering Facility: [facility] Address: [address] [place] [address] Result Comment: See Notes [facility] is a subsidiary of [employer], using the brand [employer]. This test was developed and its performance characteristics determined by [employer]. It has not been cleared or approved by the Food and Drug Administration. This laboratory is certified under the Clinical Laboratory Improvement Amendments (CLIA) as qualified to perform high complexity clinical laboratory testing and accredited by the College of [place] [employer] (CAP). If there is future clinical need for adding MaterniT GENOME testing, this specimen will be available until term. [facility] samples will not be retained beyond 60 days. [facility] patients will have to send a new sample for re-sequencing ([facility] Test Code: 556310). Performed By: #### M AT21 ####[facility] LABCLIA [id number] [place] [address] PERFORMANCE CHARACTERISTICS Note Normal [facility] Comment on above: Order Comment: Talia parsons Type: BLOOD SPECIMENOrdering Facility: [facility] Address: [address] [place] [address] Result Comment: ! Sex ! Accuracy: 99.4% [...] ! ! ! * As reported in [facility] database nstd37 [https://www.ncbi.nlm.nih.gov/dbvar/studies/nstd37/ ] # Estimated Sensitivity. [...] gestation only. Performed By: #### M AT21 ####[facility] LABCLIA [id number] [place] [address] POSITIVE PREDICTIVE VALUE N/A Normal [facility] Comment on above: Order Comment: Speci men Type: BLOOD SPECIMENOrdering Facility: [facility] Address: [address] [place] [address] Performed By: #### M AT21 ####[facility] LABCLIA [id number] [place] [address] Reference Lab Test Method Comment Normal [facility] Comment on above: Order Comment: Speci men Type: BLOOD SPECIMENOrdering Facility: [facility] Address: [address] [place] [address] Result Comment: See Notes Circulating cell-free DNA [...] and 22. Performed By: #### M AT21 ####[facility] LABCLIA [id number] [place] [address] Sex Dosage of chromosome-specific cfDNA Nom (cfDNA) Comment Normal [facility] Comment on above: Order Comment: Speci men Type: BLOOD SPECIMENOrdering Facility: [facility] Address: [address] [place] [address] Result Comment: Cons istent with Male Performed By: #### M AT21 ####[facility] LABCLIA [id number] [place] [address] Test performance information Jared (Unsp spec) Comment Normal [facility] Comment on above: Order Comment: Speci men Type: BLOOD SPECIMENOrdering Facility: [facility] Address: [address] [place] [address] Result Comment: The performance characteristics of the MaterniT(R) 21 PLUS laboratory-developed test (LDT) have been determined in a clinical validation study with women at increased risk for chromosomal aneuploidy.[1-4] Performed By: #### M AT21 ####[facility] LABCLIA [id number] [place] [address] Trisomy 13 risk Dosage of chromosome-specific cfDNA Ql (cfDNA) [Interp] Negative Normal [facility] Comment on above: Order Comment: Talia parsons Type: BLOOD SPECIMENOrdering Facility: [facility] Address: [address] [place] [address] Performed By: #### M AT21 ####[facility] LABCLIA [id number] [place] [address] Trisomy 18 risk Dosage of chromosome-specific cfDNA Ql (Plasma cell-free+WBC DNA) [Interp] Negative Normal [facility] Comment on above: Order Comment: Talia parsons Type: BLOOD SPECIMENOrdering Facility: [facility] Address: [address] [place] [address] Performed By: #### M AT21 ####[facility] LABCLIA [id number] [place] [address] CBC panel Auto (Bld)on 02-03 Erythrocyte distribution width (RBC) [Ratio] 16.9 % High 11.5 - 15.0 % [facility] Hematocrit (Bld) [Volume fraction] 36.0 % 36.0 - 46.0 % [facility] Hemoglobin (Bld) [Mass/Vol] 11.9 g/dL 11.5 - 15.5 g/dL [facility] Interpretation and review of laboratory results Abnormal [facility] MCH (RBC) [Entitic mass] 24.6 pg Low 26.0 - 34.0 pg [facility] MCHC (RBC) [Mass/Vol] 33.1 g/dL 30.5 - 36.0 g/dL [facility] MCV (RBC) [Entitic vol] 74.5 fL Low 80.0 - 100.0 fL [facility] Nucleated RBC (Bld) [#/Vol] NINF [facility] Platelet mean volume (Bld) [Entitic vol] 10.5 fL 9.0 - 12.7 fL [facility] Platelets (Bld) [#/Vol] 334 10*3/uL [facility] RBC (Bld) [#/Vol] 4.83 10*6/uL 3.90 - 5.2 0 m/uL [facility] WBC (Bld) [#/Vol] 10.33 10*3/uL [facility] Comprehensive metabolic 2000 panelOrdered By: Jeaneth Hallman on 02-04-2024 Albumin [Mass/Vol] 3.5 g/dL Low 3.9 - 4.9 g/dL Cl [facility] ALP [Catalytic activity/Vol] 58 U/L 34 - 123 U/L [facility] ALT [Catalytic activity/Vol] 17 U/L 7 - 38 U/L [facility] Anion gap [Moles/Vol] 11 mmol/L 8 - 15 mmol/L [facility] AST [Catalytic activity/Vol] 14 U/L 13 - 35 U/L [facility] Bilirubin [Mass/Vol] 0.2 mg/dL 0.2 - 1.3 mg/dL [facility] Calcium [Mass/Vol] 9.4 mg/dL 8.5 - 10. 2 mg/dL [facility] Chloride [Moles/Vol] 103 mmol/L 98 - 107 mmol/L [facility] CO2 [Moles/Vol] 21 mmol/L Low 22 - 30 mmol/L [facility] Creatinine [Mass/Vol] 0.63 mg/dL 0.58 - 0.96 mg/dL [facility] GFR/1.73 sq M.predicted among non-blacks MDRD (S/P/Bld) [Vol rate/Area] 125 mL/min/{1.73_m2} - PINF [facility] Comment on above: Estimated Glomerular Filtration [...] [Mass/Vol] 87 mg/dL 74 - 99 mg/dL [facility] Comment on above: The [place] Diabete s Association (ADA) provides guidance for [...] Standards of Medical Care in Diabetes 2016, [place] Diabetes Association. Diabetes Care. 2016.39(Suppl 1). Interpretation and review of laboratory results Abnormal [facility] Potassium [Moles/Vol] 3.6 mmol/L Low 3.7 - 5.1 mmol/L [facility] Protein [Mass/Vol] 6.2 g/dL Low 6.3 - 8.0 g/dL [facility] Sodium [Moles/Vol] 135 mmol/L Low 136 - 144 mmol/L [facility] Urea nitrogen [Mass/Vol] 6 mg/dL Low 7 - 21 mg/dL [facility] HBV surface Ag Ql (S)on 01-16 Interpretation and review of laboratory results Normal [facility] HCV Ab Ql (S)on 02-04-2024 Interpretation and review of laboratory results Normal [facility] HEPATITIS B SURFACE ANTIGENo n 02-04-2024 HBV surface Ag Ql (S) Negative Negative [facility] HEPATITIS C ANTIBODY IA WITH CONFIRMATIONon 02-04-2024 HCV Ab Ql (S) Negative Negative [facility] Comment on above: The result suggests no evidence of active infection with Hepatitis C virus. Should recent infection be suspected, repeat testing may be considered 4-6 weeks after this draw. HIV 1+2 Ab IA Qlon HIV 1 and 2 Ab IA.rapid Nom (S/P/Bld) [facility] Comment on above: Test not indicated. HIV 1+2 Ab+HIV1 p24 Ag IA Ql Non-Reactive Nonreactive [facility] HIV immunoassay testing algorithm interpretation (S/P/Bld) [Interp] [facility] Comment on above: No evidence of HIV-1 or HIV-2 infection. Should recent infection be suspected, repeat testing may be considered 2-3 weeks after this draw. [place] Rev. Code 3701.243(E): This information has been [...] HIV test results or diagnoses. [facility] POC CONTINUOUS PROCESS COFFEE ROASTER ULTRASOUNDon 02-04-20 Indication Viability; confirm cardiac activity [...] Danii Weinberg NP MATERNAL MEDICINE [facility] Radiology Study observation (narrative) [facility] RUBELLA IGG ANTIBODYon 02-03 Interpretation and review of laboratory results Normal [facility] Rubella IgG, Qual Positive Positive [facility] Comment on above: The result suggests recent or past exposure to Rubella virus or history of Rubella vaccination. Positive result may also be seen due to presence of passively-transferred antibodies. Please correlate with patient's history. [facility] Reagin and Treponema pallidu m IgG and IgM [Interp]on 02-04-2024 T. pallidum IgG+IgM IA Ql (S) Non-Reactive Nonreactive [facility] SYPHILIS TOTAL W/REFLEXon Reagin and Treponema pallidum IgG and IgM [Interp] Cannot exclude recent Treponemal infection if specimen collected within 7-10 days after appearance of suspect lesions or 2-3 weeks after an exposure. Clinical correlation is required. [facility] TYPE + SCREEN PRENATALon ABO group Nom (Bld) A [facility] Blood group antibody screen Ql Negative [facility] HIstorical Ab Scr Status Negative [facility] Rh Nom (Bld) Positive [facility] Type and Screen Expiration 02/07/2024 23:59 [facility] Basic Metabolic Profile (BMP )on 02-02-2024 BUN/CRE 4.9 RATIO Low 10-20 [facility] Comment on above: Performed By: #### L 100.0500 #### [facility] [address] [facility] [address] [place],Total 8.9 mg/dL Normal 8.5-10.1 [facility] Comment on above: Performed By: #### L 100.0500 #### [facility] [address] [facility] [address] Chloride [Moles/Vol] 109 mmol/L High 98-107 [facility] Comment on above: Performed By: #### L 100.0500 #### [facility] [address] [facility] [address] CO2 [Moles/Vol] 21.0 mmol/L Normal 21.0-32.0 [facility] Comment on above: Performed By: #### L 100.0500 #### [facility] [address] [place], [address] Creatinine [Mass/Vol] 0.61 mg/dL Normal 0.55-1.02 [facility] Comment on above: Result Comment: The validity of the calculated GFR GFRAA in patients over 70 years has not been determined. Clinical correlation is essential. Performed By: #### L 100.0500 #### [facility] [address] [place], [address] ECRCL 136.01 ml/min Normal [facility] Comment on above: Performed By: #### L 100.0500 #### [facility] [address] [place], [address] EST GFR - AA 151 mL/min Normal >60 [facility] Comment on above: Result Comment: Afri can [place] GFR Calc Performed By: #### L 100.0500 #### [facility] [address] [place], [address] GAP 8 Normal 5-15 [facility] Comment on above: Performed By: #### L 100.0500 #### [facility] [address] [place], [address] GFR/1.73 sq M.predicted among non-blacks MDRD (S/P/Bld) [Vol rate/Area] 125 mL/min/{1.73_m2} Normal >60 [facility] Comment on above: Result Comment: Non- GFR Calc Performed By: #### L 100.0500 #### [facility] [address] [place], [address] Glucose [Mass/Vol] 91 mg/dL Normal 74-106 [facility] Comment on above: Performed By: #### L 100.0500 #### [facility] [address] [place], [address] Potassium [Moles/Vol] 3.6 mmol/L Normal 3.5-5.1 [facility] Comment on above: Performed By: #### L 100.0500 #### [facility] [address] [place], [address] Sodium [Moles/Vol] 138 mmol/L Normal 136-145 [facility] Comment on above: Performed By: #### L 100.0500 #### [facility] [address] [place], [address] Urea nitrogen [Mass/Vol] 3 mg/dL Low 7-18 [facility] Comment on above: Performed By: #### L 100.0500 #### [facility] [address] [place], [address] CBC W/Diff, Automatedon -08 24-2023 Absolute Lymph 1.05 X10 3/uL Normal 0.83-4.51 [facility] Comment on above: Performed By: #### L 100.0500 #### [facility] [address] [place], [address] Absolute Neut 6.7 X10 3/uL Normal 2.0-7.7 [facility] Comment on above: Performed By: #### L 100.0500 #### [facility] [address] [place], [address] Basophils/100 WBC (Bld) 0.1 % Normal 0-1 [facility] Comment on above: Performed By: #### L 100.0500 #### [facility] [address] [place], [address] Eosinophils/100 WBC (Bld) 0.8 % Normal 0-5 [facility] Comment on above: Performed By: #### L 100.0500 #### [facility] [address] [place], [address] Erythrocyte distribution width (RBC) [Ratio] 16.9 % High 11.6-14.6 [facility] Comment on above: Performed By: #### L 100.0500 #### [facility] [address] [place], [address] Hematocrit (Bld) [Volume fraction] 38.4 % Normal 37-47 [facility] Comment on above: Performed By: #### L 100.0500 #### [facility] [address] [place], [address] Hemoglobin (Bld) [Mass/Vol] 12.4 g/dL Normal 12.0-15.0 [facility] Comment on above: Performed By: #### L 100.0500 #### [facility] [address] [place], [address] IG% 0.500 Normal 0.0-0.9 [facility] Comment on above: Result Comment: IG% - Immature Granulocytes (promyelocytes, myelocytes and metamyelocytes) > 1% indicates that a LEFT SHIFT is Present. Performed By: #### L 100.0500 #### [facility] [address] [place], [address] Lymphocytes/100 WBC (Bld) 12.7 % Low 19-41 [facility] Comment on above: Performed By: #### L 100.0500 #### [facility] [address] [place], [address] MCH (RBC) [Entitic mass] 24.7 pg Low 27.0-32.0 [facility] Comment on above: Performed By: #### L 100.0500 #### [facility] [address] [place], [address] MCHC (RBC) [Mass/Vol] 32.3 g/dL Normal 32-36 [facility] Comment on above: Performed By: #### L 100.0500 #### [facility] [address] [place], [address] MCV (RBC) [Entitic vol] 76.3 fL Low 81-99 [facility] Comment on above: Performed By: #### L 100.0500 #### [facility] [address] [place], [address] Monocytes/100 WBC (Bld) 5.7 % Normal 0-10 [facility] Comment on above: Performed By: #### L 100.0500 #### [facility] [address] [place], [address] Neutrophils/100 WBC (Bld) 80.2 % High 47-70 [facility] Comment on above: Performed By: #### L 100.0500 #### [facility] [address] [place], [address] Nucleated RBC (Bld) [#/Vol] 0 10*3/uL Normal 0-5 [facility] Comment on above: Performed By: #### L 100.0500 #### [facility] [address] [place], [address] Platelet mean volume (Bld) [Entitic vol] 10.1 fL Normal 6.2-12.0 [facility] Comment on above: Performed By: #### L 100.0500 #### [facility] [address] [place], [address] Platelets (Bld) [#/Vol] 291 10*3/uL Normal 150-450 [facility] Comment on above: Performed By: #### L 100.0500 #### [facility] [address] [place], [address] RBC (Bld) [#/Vol] 5.03 10*6/uL Normal 4.2-5.4 [facility] Comment on above: Performed By: #### L 100.0500 #### [facility] [address] [place], [address] RDW SD 45.7 fl High 35.1-43.9 [facility] Comment on above: Performed By: #### L 100.0500 #### [facility] [address] [place], [address] WBC (Bld) [#/Vol] 8.3 10*3/uL Normal 4.4-11.0 [facility] Comment on above: Performed By: #### L 100.0500 #### [facility] [address] [place], [address] Emergency Department Summary on 02-02-2024 Emergency Department Summary [facility] Medical Records Department [address] [place] [address] Emergency Department Summary 02/02/24 MR#: [id number] Acct: [id number] Name: KIMBERLY JEONG Rep #: [id number] : 1995 28 From: Bibiana Thompson MD PCP: Dr. Surjit Aguirre MD Status:DEP ER Location: ED HPI History of Present Illness Chief Complaint: Abd Pain Informant: patient Narrative Narrative: Patient returns secondary to recurrent abdominal pain. Patient is currently 8 weeks and has been in the ER couple times this past week secondary to nausea and vomiting with abdominal pain. She was admitted 2 days ago and discharged yesterday. Patient states that she was doing better, but presents with recurrent abdominal pain this morning. She is currently prescribed doxylamine, Pepcid, Zofran, and vitamin B6. She states she does not feel the medications are working and she was vomiting again this morning as well. This is her third and she denies any significant pain with the first 2 pregnancies. She did have problems with nausea and vomiting during her prior pregnancies. [facility] Medical History Postoperative pain History of depression Myocarditis History of pre-term labor depression Anxiety Depression Migraine History of delivery Home Medications ???Medication ???Instructions ???Recorded ???Last Taken ???Type vitamins-iron fumarate 65 1 tab PO DAILY 01/01/22 01/04/22 08:00 History mg iron-folic acid 1 mg tablet duloxetine 60 mg capsule,delayed 60 mg PO DAILY 01/31/24 Unknown History release doxylamine succinate 25 mg tablet 25 mg PO QHS PRN nausea and 02/01/24 Unknown Rx (Sleep Aid (doxylamine)) vomiting #30 tabs famotidine 20 mg tablet (Pepcid) 20 mg PO BID #60 tabs 02/01/24 Unknown Rx ondansetron 4 mg disintegrating 4 mg PO Q8H PRN nausea and 02/01/24 Unknown Rx tablet vomiting #60 tabs pyridoxine (vitamin B6) 50 mg 50 mg PO BID #60 tabs 02/01/24 Unknown Rx tablet promethazine 25 mg tablet 25 mg PO Q6H PRN nausea and 02/02/24 Unknown Rx vomiting #20 tabs Allergy/AdvReac Type Severity Reaction Status Date / Time No Known Allergies Allergy Verified 01/31/24 18:06 Surgical History Delivery by section Inez teeth removed Social History Smoking Status: Never smoker ROS ROS ED Constitutional Constitutional ED: Denies chills or fever(s) Eyes Eyes: Denies discharge from eye(s) ENT ENT ED: Denies discharge from eye(s), rhinorrhea or sore throat Cardiovascular Cardiovascular: Denies chest pain or palpitations Respiratory/Chest Respiratory/Chest: Denies cough or dyspnea Gastrointestinal Gastrointestinal: Reports abdominal pain, nausea and vomiting; Denies diarrhea Genitourinary Genitourinary ED: Denies dysuria Musculoskeletal Musculoskeletal: Denies back pain or extremity pain Integumentary Denies Abrasions or rash Neurologic Neurologic: Denies headache(s) or weakness Psychiatric Psychiatric: Denies anxiety or depression Allergic/Immunologic Allergic/Immunologic ED: Denies lip swelling or urticaria EXAM Physical Exam Const Vital Signs: 02/02/24 11:35 Temperature 97.4 F L Temperature Source Temporal Pulse Rate 79 Respiratory Rate 18 Blood Pressure 112/72 Blood Pressure Mean 85 Pulse Ox 99 Positive well nourished and well developed General Appearance ED: well developed HEENT Reports moist mucous membranes Eyes EOMs intact bilaterally Chest Wall inspection of chest normal and palpation of chest normal Resp normal respiratory effort and clear to auscultation bilaterally Cardio regular rate and regular rhythm GI GI Narrative: Abdomen soft with mild epigastric tenderness. No guarding or rebound. Extremity normal to inspection Neuro oriented x3 and no sensory deficits noted Motor Exam: strength 5/5 throughout Psych mental status grossly normal Skin no rashes or lesions noted MDM MDM MDM Narrative Medical decision making narrative: Patient's recent ER visits and hospitalization reviewed. IV line initiated. Patient given Phenergan along with a GI cocktail. Labwork obtained to evaluate for leukocytosis, anemia, and lizbet ctrolyte derangement. Right upper quadrant abdominal ultrasound to be obtained to evaluate for any acute gallbladder abnormalities. History Record Review Discussion w/independent historian: Patient Additional record(s) reviewed:: Prior inpatient record, Prior ED visit and Prior labs Lab Data Attestation: I reviewed the patient's lab results. Labs: Laboratory Results - last 24 hr (more content not included)... Normal [facility] Gallbladderon 02-02-[address] [facility] [address] [place], [place] [address] Gallbladder MR#: [id number] Acct: [id number] Name: KIMBERLY JEONG Rep #: [id number] : 1995 F 28 From: Luigi mccartney MD PCP: Dr. Surjit Aguirre MD Status: PRE ER Study: Gallbladder Date of Exam: 02/02/24 Exam# [id number] Ordering [place]: [place] [id number] STUDY: ABDOMINAL ULTRASOUND - RIGHT UPPER QUADRANT REASON FOR VISIT: Female, 28 years old upper abd pain/ 8weeks TECHNIQUE: Ultrasound evaluation of the right upper quadrant was performed with real-time and static montana-scale imaging. TECHNICAL QUALITY: Adequate. COMPARISON: None. FINDINGS: Liver: The liver measures 16.7 cm. There is increased echogenicity consistent with fatty infiltration. The bile ducts are within normal limits. There is hepatic color flow. The direction of portal flow is hepatopetal. There is no demonstrated mass lesion. Gallbladder: Normal distended gallbladder. The gallbladder wall measures 1.6 mm. There is a negative sonographic Veliz''s sign. There is no pericholecystic fluid. There are no gallstones. Common Bile Duct (C.B.D.): The common bile duct measures 2.7 mm. Pancreas: Normal size of the head, body and tail of the pancreas. There is normal echogenicity of the pancreas. There is no demonstrated pancreatic mass or cyst. Right Kidney: Normal size of the right kidney. The right kidney measures 10.7 cm x 5.5 cm x 4.5 cm. Normal renal cortex. The right cortex measures 1.6 cm. There is no demonstrated renal mass or cyst. There is no right hydronephrosis. US/Gallbladder IMPRESSION: Fatty infiltration of the liver. Electronically Signed: Luigi Price MD at 13:15 EDT Reading Location ID and State: [facility] / [place] , Service support , CC: Dr. Bibiana Thomspon MD; Dr. Surjit Aguirre MD Clinical Services Manager: Signed Normal [facility] Lipaseon 02-02-2024 Lipase [Catalytic activity/Vol] 20 U/L Normal 13-75 [facility] Comment on above: Result Comment: Stevo ann note: LIPASE revised reference range effective 22. New Lipase methodology. Expected to produce lower values than the previous assay method. NEW Reference Range: 13 - 75 U/L Performed By: #### L 100.0500 #### [facility] [address] [place], [address] Liver Profileon 02-02-2024 Albumin [Mass/Vol] 2.6 g/dL Low 3.2-5.0 [facility] Comment on above: Performed By: #### L 100.0500 #### [facility] [address] [place], [address] ALK P 58 U/L Normal 45-117 [facility] Comment on above: Performed By: #### L 100.0500 #### [facility] [address] [place], [address] ALT [Catalytic activity/Vol] 28 U/L Normal 13-56 [facility] Comment on above: Performed By: #### L 100.0500 #### [facility] [address] [place], [address] AST [Catalytic activity/Vol] 17 U/L Normal 15-37 [facility] Comment on above: Performed By: #### L 100.0500 #### [facility] [address] [place], [address] Bilirubin [Mass/Vol] 0.20 mg/dL Normal 0.20-1.00 [facility] Comment on above: Result Comment: For patients on eltrombopag therapy, use of Dimension [place] TBIL is not recommended. Performed By: #### L 100.0500 #### [facility] [address] [place], [address] Bilirubin.direct [Mass/Vol] 0.07 mg/dL Normal 0.00-0.30 [facility] Comment on above: Performed By: #### L 100.0500 #### [facility] [address] [place], [address] Globulin (S) [Mass/Vol] 3.9 g/dL Normal 2.2-4.2 [facility] Comment on above: Performed By: #### L 100.0500 #### [facility] [address] [place], [address] T PROT 6.5 g/dL Normal 6.4-8.2 [facility] Comment on above: Performed By: #### L 100.0500 #### [facility] [address] [place], [address] Urinalysis, Completeon 02-01 BACTERIA 1+ /hpf Normal None Seen [facility] Comment on above: Order Comment: CLEAN CATCH Performed By: #### M 100.678, L400.2010 #### [facility] [address] [place], [address] Mucus Ql (Urine sed) 1+ /hpf Normal [facility] Comment on above: Order Comment: CLEAN CATCH Performed By: #### M 100.678, L400.2010 #### [facility] [address] [place], [address] EPI,SQUAMOUS 0-5 SEEN Normal 5-10 [facility] Comment on above: Order Comment: CLEAN CATCH Performed By: #### M 100.678, L400.2010 #### [facility] [address] [place], [address] WBC 0-5 SEEN Normal 0-5 [facility] Comment on above: Order Comment: CLEAN CATCH Performed By: #### M 100.678, L400.2010 #### [facility] [address] [place], [address] RBC 0 SEEN Normal 0-5 [facility] Comment on above: Order Comment: CLEAN CATCH Performed By: #### M 100.678, L400.2010 #### [facility] [address] [place], [address] Discharge Instructionon 06- Discharge Instruction [facility] Medical Records Department [address] [place] [address] Instructions for Home/Discharge Instructions 02/01/24 1425 MR#: [id number] Acct: [id number] Name: KIMBERLY JEONG Rep #: [id number] : 1995 28 From: Yobani Darby MD PCP: Dr. Surjit Aguirre MD Status:ADM ANTOINETTE Discharge Instructions Diet Discharge Diet: Phelps diet Activity Discharge Activity: Return to Normal Activity May resume sexual activity in: No Restrictions Weight Bearing Status: Weight bearing as tolerated Follow Up Care When: Keep appointment this week as scheduled. Test Results: Test results from this visit will be discussed in further detail at your follow-up appointment, if applicable. Discharge Plan Admission Admit Date/Time: 01/31/24 21:30 Primary Reason for Your Visit: Nausea and vomiting in Attending Provider: Yobani Darby Primary Care Provider: Surjit Aguirre Instructions Additional Instructions / Restrictions: Please only take the Vitamin B6 and Unisom until able to get Diclegis. Discharge Orders/Prescriptions Prescriptions: New pyridoxine (vitamin B6) 50 mg Tablet 50 mg PO BID Qty: 60 3RF Sleep Aid (doxylamine) 25 mg tablet 25 mg PO QHS PRN (Reason: nausea and vomiting) Qty: 30 0RF ondansetron 4 mg tablet,disintegrating 4 mg PO Q8H PRN (Reason: nausea and vomiting) Qty: 60 2RF famotidine [Pepcid] 20 mg tablet 20 mg PO BID Qty: 60 4RF Continued vit-iron fum-folic ac 65 mg iron- 1 mg Tablet 1 tab PO DAILY duloxetine 60 mg capsule,delayed release(DR/EC) 60 mg PO DAILY Referrals / Follow Up: Surjit Aguirre MD [Primary Care Provider] - Disposition Disposition (needs filled in before D/C Order can be placed): Home, Self Care 02/01/24 1432 Yobani Darby MD CC: Dr. Surjit Aguirre MD Signed [facility] H AND P Exam - OB/GYNon 01-16 H&P Exam - THIRD STE[employer] P[employer]ER [facility] Medical Records Department [address] [place] [id number] H P Exam - THIRD STE[employer] P[employer]ER 02/01/24 1418 MR#: [id number] Acct: [id number] Name: KIMBERLY JEONG Rep #: [id number] : 1995 28 From: Yobani Darby MD PCP: Dr. Surjit Aguirre MD Status:ADM ANTOINETTE [facility] - General General Date of Admission: 01/31/24 Chief Complaint: Nausea and vomiting HPI Narrative KIMBERLY JEONG, is a 28 F who presents at 8 weeks gestation presented to the ED last evening with continued nausea and vomiting. She has been seen over the last week a few times times in the ED. She developed some diarrhea 2 nights ago along with her continued nausea and vomiting. Anytime she triesd to eat or drink anything she will vomit 5 minutes later. She denies any vaginal bleeding or cramping but is had some abdominal cramping when presented to the ED. Today she is feelikng much better. Patient has some mild nausea but denies emesis. She is tolerating PO and feels ready to go home. Maternal Data Information Gestational age: 8 weeks (exact EDC unknown at this time) [facility] Medical History Postoperative pain History of depression Myocarditis History of pre-term labor depression Anxiety Depression Migraine History of delivery Home Medications ???Medication ???Instructions ???Recorded ???Last Taken ???Type vitamins-iron fumarate 65 1 tab PO DAILY 01/01/22 01/04/22 08:00 History mg iron-folic acid 1 mg tablet duloxetine 60 mg capsule,delayed 60 mg PO DAILY 01/31/24 Unknown History release Allergy/AdvReac Type Severity Reaction Status Date / Time No Known Allergies Allergy Verified 01/31/24 18:06 Surgical History Delivery by section Inez teeth removed Social History Smoking Status: Never smoker History Elective abortions Hx Para 1 Spontaneous abortions Hx # Term Pregnancies Ectopic pregnancies Hx # Pregnancies Multiple births # of living children Vital Signs Vital Signs Vital Signs: 01/31/24 18:04 01/31/24 20:00 01/31/24 21:42 Temperature 97.6 F L 99.0 F 97.9 F Temperature Source Temporal Oral Pulse Rate 88 81 76 Respiratory Rate 17 16 16 Respiratory Effort Respiratory Depth Respiratory Pattern Blood Pressure 124/65 H 116/79 122/75 H Blood Pressure Mean 84 91 90 Blood Pressure Source Monitor Blood Pressure Position Supine Blood Pressure Location Right Arm Pulse Ox 100 98 100 Oxygen Delivery Method Room Air Room Air 01/31/24 22:15 02/01/24 05:34 02/01/24 07:56 Temperature 98.6 F Temperature Source Oral Pulse Rate 71 70 Respiratory Rate 16 Respiratory Effort Normal Non-Labored Respiratory Depth Normal Respiratory Pattern Normal Blood Pressure 128/72 H Blood Pressure Mean 90 Blood Pressure Source Monitor Blood Pressure Position Semi-Fowlers Blood Pressure Location Right Arm Pulse Ox 99 Oxygen Delivery Method Room Air Room Air 02/01/24 10:05 Temperature 98.6 F Temperature Source Oral Pulse Rate 83 Respiratory Rate 20 H Respiratory Effort Respiratory Depth Respiratory Pattern Blood Pressure 112/64 Blood Pressure Mean 80 Blood Pressure Source Monitor Blood Pressure Position Semi-Fowlers Blood Pressure Location Left Arm Pulse Ox 98 Oxygen Delivery Method Room Air Weight Weight: 176 lb 2.389 oz Body Mass Index (BMI) 32.2 Physical Exam Const alert, oriented x3 and no apparent distress Chest inspection of chest normal Resp normal respiratory effort GI soft to palpation, non-tender and non-distended Extremity normal to inspection, no calf tenderness and no pedal edema Neuro moves all extremities Labs Labs Labs: Blood Type A POSITIVE Antibody Screen NEGATIVE Hct 43.3 % (37-47) Hgb 14.1 g/dL (12.0-15.0) Group B Strep DNA Negative (Negative) Rhogam given: No Assessment Plan (1) Nausea and vomiting during : COMMENT: 8 weeks (2) First trimester : (3) Dehydration: PLAN: Plan Patient admitted for observation. IV fluids antiemetics ordered. Plan for discharge to home with oral meds and follow up later this week. 02/01/24 1424 Cosigner Signature (if applicable): CC: Dr. Yobani Darby MD; Dr. Surjit Aguirre MD Signed Normal [facility] CBC W/Diff, Automatedon 01-16 Absolute Lymph 0.99 X10 3/uL Normal 0.83-4.51 [facility] Comment on above: Performed By: #### L 501.2450, L500.4050, L100.0100 #### [facility] [address] [place], [address] Absolute Neut 13.2 X10 3/uL High 2.0-7.7 [facility] Comment on above: Performed By: #### L 501.2450, L500.4050, L100.0100 #### [facility] [address] [place], [address] Basophils/100 WBC (Bld) 0.1 % Normal 0-1 [facility] Comment on above: Performed By: #### L 501.2450, L500.4050, L100.0100 #### [facility] [address] [place], [address] Eosinophils/100 WBC (Bld) 0.1 % Normal 0-5 [facility] Comment on above: Performed By: #### L 501.2450, L500.4050, L100.0100 #### [facility] [address] [place], [address] Erythrocyte distribution width (RBC) [Ratio] 16.4 % High 11.6-14.6 [facility] Comment on above: Performed By: #### L 501.2450, L500.4050, L100.0100 #### [facility] [address] [place], [address] Hematocrit (Bld) [Volume fraction] 43.3 % Normal 37-47 [facility] Comment on above: Performed By: #### L 501.2450, L500.4050, L100.0100 #### [facility] [address] [place], [address] Hemoglobin (Bld) [Mass/Vol] 14.1 g/dL Normal 12.0-15.0 [facility] Comment on above: Performed By: #### L 501.2450, L500.4050, L100.0100 #### [facility] [address] [place], [address] IG% 0.300 Normal 0.0-0.9 [facility] Comment on above: Result Comment: IG% - Immature Granulocytes (promyelocytes, myelocytes and metamyelocytes) > 1% indicates that a LEFT SHIFT is Present. Performed By: #### L 501.2450, L500.4050, L100.0100 #### [facility] [address] [place], [address] Lymphocytes/100 WBC (Bld) 6.6 % Low 19-41 [facility] Comment on above: Performed By: #### L 501.2450, L500.4050, L100.0100 #### [facility] [address] [place], [address] MCH (RBC) [Entitic mass] 24.7 pg Low 27.0-32.0 [facility] Comment on above: Performed By: #### L 501.2450, L500.4050, L100.0100 #### [facility] [address] [place], [address] MCHC (RBC) [Mass/Vol] 32.6 g/dL Normal 32-36 [facility] Comment on above: Performed By: #### L 501.2450, L500.4050, L100.0100 #### [facility] [address] [place], [address] MCV (RBC) [Entitic vol] 75.7 fL Low 81-99 [facility] Comment on above: Performed By: #### L 501.2450, L500.4050, L100.0100 #### [facility] [address] [place], [address] Monocytes/100 WBC (Bld) 4.8 % Normal 0-10 [facility] Comment on above: Performed By: #### L 501.2450, L500.4050, L100.0100 #### [facility] [address] [place], [address] Neutrophils/100 WBC (Bld) 88.1 % High 47-70 [facility] Comment on above: Performed By: #### L 501.2450, L500.4050, L100.0100 #### [facility] [address] [place], [address] Nucleated RBC (Bld) [#/Vol] 0 10*3/uL Normal 0-5 [facility] Comment on above: Performed By: #### L 501.2450, L500.4050, L100.0100 #### [facility] [address] [place], [address] Platelet mean volume (Bld) [Entitic vol] 9.8 fL Normal 6.2-12.0 [facility] Comment on above: Performed By: #### L 501.2450, L500.4050, L100.0100 #### [facility] [address] [place], [address] Platelets (Bld) [#/Vol] 415 10*3/uL Normal 150-450 [facility] Comment on above: Performed By: #### L 501.2450, L500.4050, L100.0100 #### [facility] [address] [place], [address] RBC (Bld) [#/Vol] 5.72 10*6/uL High 4.2-5.4 [facility] Comment on above: Performed By: #### L 501.2450, L500.4050, L100.0100 #### [facility] [address] [place], [address] RDW SD 43.9 fl Normal 35.1-43.9 [facility] Comment on above: Performed By: #### L 501.2450, L500.4050, L100.0100 #### [facility] [address] [place], [address] WBC (Bld) [#/Vol] 15.0 10*3/uL High 4.4-11.0 [facility] Comment on above: Performed By: #### L 501.2450, L500.4050, L100.0100 #### [facility] [address] [place], [address] Comprehensive Metabolic Prof [facility] 01-31-2024 Albumin [Mass/Vol] 3.4 g/dL Normal 3.2-5.0 [facility] Comment on above: Performed By: #### L 501.2450, L500.4050, L100.0100 #### [facility] [address] [place], [address] Albumin/Globulin [Mass ratio] 0.8 {ratio} Low 0.9-2.4 [facility] Comment on above: Performed By: #### L 501.2450, L500.4050, L100.0100 #### [facility] [address] [place], [address] ALK P 71 U/L Normal 45-117 [facility] Comment on above: Performed By: #### L 501.2450, L500.4050, L100.0100 #### [facility] [address] [place], [address] ALT [Catalytic activity/Vol] 26 U/L Normal 13-56 [facility] Comment on above: Performed By: #### L 501.2450, L500.4050, L100.0100 #### [facility] [address] [place], [address] AST [Catalytic activity/Vol] 14 U/L Low 15-37 [facility] Comment on above: Performed By: #### L 501.2450, L500.4050, L100.0100 #### [facility] [address] [place], [address] Bilirubin [Mass/Vol] 0.60 mg/dL Normal 0.20-1.00 [facility] Comment on above: Result Comment: For patients on eltrombopag therapy, use of Dimension [place] TBIL is not recommended. Performed By: #### L 501.2450, L500.4050, L100.0100 #### [facility] [address] [place], [address] BUN/CRE 7.8 RATIO Low 10-20 [facility] Comment on above: Performed By: #### L 501.2450, L500.4050, L100.0100 #### [facility] [address] [place], [address] CA,Total 9.5 mg/dL Normal 8.5-10.1 [facility] Comment on above: Performed By: #### L 501.2450, L500.4050, L100.0100 #### [facility] [address] [place], [address] Chloride [Moles/Vol] 105 mmol/L Normal 98-107 [facility] Comment on above: Performed By: #### L 501.2450, L500.4050, L100.0100 #### [facility] [address] [place], [address] CO2 [Moles/Vol] 20.0 mmol/L Low 21.0-32.0 [facility] Comment on above: Performed By: #### L 501.2450, L500.4050, L100.0100 #### [facility] [address] [place], [address] Creatinine [Mass/Vol] 0.77 mg/dL Normal 0.55-1.02 [facility] Comment on above: Result Comment: The validity of the calculated GFR GFRAA in patients over 70 years has not been determined. Clinical correlation is essential. Performed By: #### L 501.2450, L500.4050, L100.0100 #### [facility] [address] [place], [address] ECRCL 106.83 ml/min Normal [facility] Comment on above: Performed By: #### L 501.2450, L500.4050, L100.0100 #### [facility] [address] [place], [address] EST GFR - AA 116 mL/min Normal >60 [facility] Comment on above: Result Comment: Afri can Kosovan GFR Calc Performed By: #### L 501.2450, L500.4050, L100.0100 #### [facility] [address] [place], [address] GAP 12 Normal 5-15 [facility] Comment on above: Performed By: #### L 501.2450, L500.4050, L100.0100 #### [facility] [address] [place], [address] GFR/1.73 sq M.predicted among non-blacks MDRD (S/P/Bld) [Vol rate/Area] 96 mL/min/{1.73_m2} Normal >60 [facility] Comment on above: Result Comment: Non- GFR Calc Performed By: #### L 501.2450, L500.4050, L100.0100 #### [facility] [address] [place], [address] Globulin (S) [Mass/Vol] 4.4 g/dL High 2.2-4.2 [facility] Comment on above: Performed By: #### L 501.2450, L500.4050, L100.0100 #### [facility] [address] [place], [address] Glucose [Mass/Vol] 92 mg/dL Normal 74-106 [facility] Comment on above: Performed By: #### L 501.2450, L500.4050, L100.0100 #### [facility] [address] [place], [address] Potassium [Moles/Vol] 3.4 mmol/L Low 3.5-5.1 [facility] Comment on above: Performed By: #### L 501.2450, L500.4050, L100.0100 #### [facility] [address] [place], [address] Sodium [Moles/Vol] 137 mmol/L Normal 136-145 [facility] Comment on above: Performed By: #### L 501.2450, L500.4050, L100.0100 #### [facility] [address] [place], [address] T PROT 7.8 g/dL Normal 6.4-8.2 [facility] Comment on above: Performed By: #### L 501.2450, L500.4050, L100.0100 #### [facility] [address] [place], [address] Urea nitrogen [Mass/Vol] 6 mg/dL Low 7-18 [facility] Comment on above: Performed By: #### L 501.2450, L500.4050, L100.0100 #### [facility] [address] [place], [address] Emergency Department Summary on 01-31-2024 Emergency Department Summary [facility] Medical Records Department [address] [place] [address] Emergency Department Summary 01/31/24 MR#: [id number] Acct: [id number] Name: KIMBERLY JEONG Rep #: [id number] : 1995 28 From: Carter Burkett MD PCP: Dr. Surjit Aguirre MD Status:REG ER Location: ED HPI HPI - GI History of Present Illness Chief Complaint: Abd Pain Narrative Narrative: 28-year-old female G3, P2 Ab0 at approximately 8 weeks gestation presents with continued nausea and vomiting. She has been seen over the last week a few times times in the ED. Her last visit was 2 days ago, when she was seen twice in 1 day. She had been given IV fluids and Zofran at home. She states last evening she developed diarrhea, along with her continued nausea and vomiting. Anytime she tries to eat or drink anything she will vomit 5 minutes later. She denies any vaginal bleeding or cramping but is having diffuse abdominal cramping. She has had more than 5 episodes of watery stool in the last 24 hours and just as much vomiting. Her THIRD [employer] is Dr. Berman through the [facility]. [facility] Medical History Postoperative pain History of depression Myocarditis History of pre-term labor depression Anxiety Depression Migraine History of delivery Home Medications ???Medication ???Instructions ???Recorded ???Last Taken ???Type vitamins-iron fumarate 65 1 tab PO DAILY 01/01/22 01/04/22 08:00 History mg iron-folic acid 1 mg tablet duloxetine 60 mg capsule,delayed 60 mg PO DAILY 01/31/24 Unknown History release Allergy/AdvReac Type Severity Reaction Status Date / Time No Known Allergies Allergy Verified 01/31/24 18:06 Surgical History Delivery by section Inez teeth removed Social History Smoking Status: Never smoker ROS ROS ED ROS Narrative Constitutional: No fever, no chills. HEENT: No sore throat. No neck pain. No loss of vision. No rhinorrhea. Cardiovascular: No chest pain. No palpitations. No pedal edema. Respiratory: No cough, no shortness of breath. Abdominal: Positive diffuse, crampy abdominal pain. Positive nausea and vomiting, no hematemesis. Multiple episodes of watery diarrhea. Genitourinary: No dysuria. No hematuria. No vaginal bleeding or pelvic cramping. Musculoskeletal: No myalgias. No arthralgias. Neurologic: No headaches. No dizziness. No lightheadedness. Skin: No rash. No change in color. Psychiatric: No depression. No anxiety. EXAM Physical Exam Narrative Exam Narrative: Afebrile. Vital signs noted. HEENT: Normocephalic. Atraumatic. PERRL, EOMI. Neck soft and supple. No point tenderness or step off. Cardiovascular: Regular rate and rhythm. No murmurs, rubs, or gallops appreciated. Respiratory: No tachypnea. Lungs clear to auscultation bilaterally. Gastrointestinal: Abdomen soft, minimal diffuse tenderness with normoactive bowel sounds. No rebound or guarding. Neurological: Awake. Alert. Nonfocal, nonlateralizing. Skin: No rash. Normal color. No pallor. Musculoskeletal: No pedal edema. Full range of motion extremities. Const Vital Signs: 01/31/24 18:04 Temperature 97.6 F L Temperature Source Temporal Pulse Rate 88 Respiratory Rate 17 Blood Pressure 124/65 H Blood Pressure Mean 84 Pulse Ox 100 Oxygen Delivery Method Room Air MDM MDM MDM Narrative Medical decision making narrative: I reviewed the patient's prior records. She was seen twice on the , and received IV fluids and had laboratories that were checked. I do not feel she requires CT imaging of her abdomen as I have low suspicion for obstruction or any acute pathology. Think she may have more of a gastroenteritis in combination with hyperemesis gravidarum. She will be bolused normal saline, administered intramuscular Bentyl and Zofran IV. I will check a CBC, CMP, lipase to rule out pancreatitis, and also a urinalysis to check her for ketones. I reviewed her laboratory work and she has an elevated white count of 15, down from previous of 16 when compared to prior laboratories. Hemoglobin normal at 14.1 with hematocrit 43.3, platelet count 415. Review of her CMP shows potassium slightly low at 3.4 with a BUN of 6 and creatinine 0.77, glucose appropriately elevated at 92. Lipase normal at 19. While urinalysis was obtained and reviewed and shows 10-25 WBCs, I feel it is a contaminated specimen with 5-10 epithelial cells. She does have 150 ketones in her urine. I can send for culture. Upon repeat examination, she states she feels slightly improved. However, as this is her third visit in 3 days, I discussed patient with Dr. Darby with (more content not included)... Normal [facility] Lipaseon 01-31-2024 Lipase [Catalytic activity/Vol] 19 U/L Normal 13-75 [facility] Comment on above: Result Comment: Stevo ann note: LIPASE revised reference range effective 22. New Lipase methodology. Expected to produce lower values than the previous assay method. NEW Reference Range: 13 - 75 U/L Performed By: #### L 501.2450, L500.4050, L100.0100 #### [facility] [address] [place], [address] Urinalysis, Completeon 01-30 BACTERIA 2+ /hpf Normal None Seen [facility] Comment on above: Order Comment: Comme nts: Day #1 Reason for Laboratory Test Performed By: #### L 100.0500 #### [facility] [address] [place], [address] EPI,SQUAMOUS 5-10 SEEN Normal 5-10 [facility] Comment on above: Order Comment: Comme nts: Day #1 Reason for Laboratory Test Performed By: #### L 100.0500 #### [facility] [address] [place], [address] RBC 0-5 SEEN Normal 0-5 [facility] Comment on above: Order Comment: Comme nts: Day #1 Reason for Laboratory Test Performed By: #### L 100.0500 #### [facility] [address] [place], [address] WBC 10-25 SEEN Normal 0-5 [facility] Comment on above: Order Comment: Comme nts: Day #1 Reason for Laboratory Test Performed By: #### L 100.0500 #### [facility] [address] [place], [address] Mucus Ql (Urine sed) 0 SEEN Normal [facility] Comment on above: Order Comment: Comme nts: Day #1 Reason for Laboratory Test Performed By: #### L 100.0500 #### [facility] [address] [place], [address] Basic Metabolic Profile (BMP )on 01-29-2024 BUN/CRE 5.7 RATIO Low 10-20 [facility] Comment on above: Performed By: #### L 505.5000 #### [facility] [address] [place], [address] CA,Total 8.7 mg/dL Normal 8.5-10.1 [facility] Comment on above: Performed By: #### L 505.5000 #### [facility] [address] [place], [address] Chloride [Moles/Vol] 108 mmol/L High 98-107 [facility] Comment on above: Performed By: #### L 505.5000 #### [facility] [address] [place], [address] CO2 [Moles/Vol] 21.0 mmol/L Normal 21.0-32.0 [facility] Comment on above: Performed By: #### L 505.5000 #### [facility] [address] [place], [address] Creatinine [Mass/Vol] 0.70 mg/dL Normal 0.55-1.02 [facility] Comment on above: Result Comment: The validity of the calculated GFR GFRAA in patients over 70 years has not been determined. Clinical correlation is essential. Performed By: #### L 505.5000 #### [facility] [address] [place], [address] ECRCL 120.01 ml/min Normal [facility] Comment on above: Performed By: #### L 505.5000 #### [facility] [address] [place], [address] EST GFR - AA 128 mL/min Normal >60 [facility] Comment on above: Result Comment: Afri can [place] GFR Calc Performed By: #### L 505.5000 #### [facility] [address] [place], [address] GAP 7 Normal 5-15 [facility] Comment on above: Performed By: #### L 505.5000 #### [facility] [address] [place], [address] GFR/1.73 sq M.predicted among non-blacks MDRD (S/P/Bld) [Vol rate/Area] 106 mL/min/{1.73_m2} Normal >60 [facility] Comment on above: Result Comment: Non- GFR Calc Performed By: #### L 505.5000 #### [facility] [address] [place], [address] Glucose [Mass/Vol] 86 mg/dL Normal 74-106 [facility] Comment on above: Performed By: #### L 505.5000 #### [facility] [address] [place], [address] Potassium [Moles/Vol] 3.8 mmol/L Normal 3.5-5.1 [facility] Comment on above: Result Comment: Slig ht Hemolysis, Result may be falsely increased. Performed By: #### L 505.5000 #### [facility] [address] [place], [address] Sodium [Moles/Vol] 136 mmol/L Normal 136-145 [facility] Comment on above: Performed By: #### L 505.5000 #### [facility] [address] [place], [address] Urea nitrogen [Mass/Vol] 4 mg/dL Low 7-18 [facility] Comment on above: Performed By: #### L 505.5000 #### [facility] [address] [place], [address] CBC W/Diff, Automatedon 06-1 -2023 Absolute Lymph 2.25 X10 3/uL Normal 0.83-4.51 [facility] Comment on above: Performed By: #### L 505.5000 #### [facility] [address] [place], [address] Absolute Neut 12.9 X10 3/uL High 2.0-7.7 [facility] Comment on above: Performed By: #### L 505.5000 #### [facility] [address] [place], [address] Basophils/100 WBC (Bld) 0.2 % Normal 0-1 [facility] Comment on above: Performed By: #### L 505.5000 #### [facility] [address] [place], [address] Eosinophils/100 WBC (Bld) 0.5 % Normal 0-5 [facility] Comment on above: Performed By: #### L 505.5000 #### [facility] [address] [place], [address] Erythrocyte distribution width (RBC) [Ratio] 16.2 % High 11.6-14.6 [facility] Comment on above: Performed By: #### L 505.5000 #### [facility] [address] [place], [address] Hematocrit (Bld) [Volume fraction] 40.2 % Normal 37-47 [facility] Comment on above: Performed By: #### L 505.5000 #### [facility] [address] [place], [address] Hemoglobin (Bld) [Mass/Vol] 12.9 g/dL Normal 12.0-15.0 [facility] Comment on above: Performed By: #### L 505.5000 #### [facility] [address] [place], [address] IG% 0.500 Normal 0.0-0.9 [facility] Comment on above: Result Comment: IG% - Immature Granulocytes (promyelocytes, myelocytes and metamyelocytes) > 1% indicates that a LEFT SHIFT is Present. Performed By: #### L 505.5000 #### [facility] [address] [place], [address] Lymphocytes/100 WBC (Bld) 13.9 % Low 19-41 [facility] Comment on above: Performed By: #### L 505.5000 #### [facility] [address] [place], [address] MCH (RBC) [Entitic mass] 24.3 pg Low 27.0-32.0 [facility] Comment on above: Performed By: #### L 505.5000 #### [facility] [address] [place], [address] MCHC (RBC) [Mass/Vol] 32.1 g/dL Normal 32-36 [facility] Comment on above: Performed By: #### L 505.5000 #### [facility] [address] [place], [address] MCV (RBC) [Entitic vol] 75.8 fL Low 81-99 [facility] Comment on above: Performed By: #### L 505.5000 #### [facility] [place], [address] Monocytes/100 WBC (Bld) 5.1 % Normal 0-10 [facility] Comment on above: Performed By: #### L 505.5000 #### [facility] [place], [address] Neutrophils/100 WBC (Bld) 79.8 % High 47-70 [facility] Comment on above: Performed By: #### L 505.5000 #### [facility] [address] [place], [address] Nucleated RBC (Bld) [#/Vol] 0 10*3/uL Normal 0-5 [facility] Comment on above: Performed By: #### L 505.5000 #### [facility] [address] [place], [address] Platelet mean volume (Bld) [Entitic vol] 10.1 fL Normal 6.2-12.0 [facility] Comment on above: Performed By: #### L 505.5000 #### [facility] [address] [place], [address] Platelets (Bld) [#/Vol] 395 10*3/uL Normal 150-450 [facility] Comment on above: Performed By: #### L 505.5000 #### [facility] [address] [place], [address] RBC (Bld) [#/Vol] 5.30 10*6/uL Normal 4.2-5.4 [facility] Comment on above: Performed By: #### L 505.5000 #### [facility] [address] [place], [address] RDW SD 43.9 fl Normal 35.1-43.9 [facility] Comment on above: Performed By: #### L 505.5000 #### [facility] [address] [place], [address] WBC (Bld) [#/Vol] 16.1 10*3/uL High 4.4-11.0 [facility] Comment on above: Performed By: #### L 505.5000 #### [facility] [address] [place], [address] Emergency Department Summary on 01-29-2024 Emergency Department Summary [facility] Medical Records Department [address] [place] [address] Emergency Department Summary 01/29/24 MR#: [id number] Acct: [id number] Name: KIMBERLY JEONG Rep #: [id number] : 1995 28 From: Lucas Boston MD PCP: Dr. Surjit Aguirre MD Status:REG ER Location: ED HPI HPI - GI History of Present Illness Chief Complaint: Nausea/Vomiting Informant: patient Nausea/Vomiting/Emesis GI Symptom: Positive for Nausea and Vomiting Onset: Days Severity: Mild Diarrhea/Melena/Hematoc hezia GI Symptom: Negative for Diarrhea, Melena or Hematochezia Associated Symptoms Associated Symptoms: Negative for Dysuria, Frequency, Hematuria or Urgency Narrative Narrative: 28-year-old female G3, P2 AB 0. Currently 7 weeks . Due date 09/11/2024. Being seen by the [facility] [employer] [facility]. States the last week she has had intermittent nausea and vomiting. No diarrhea. No dysuria. No fever. No abdominal pain. No vaginal bleeding or pelvic pain. No pelvic discharge. Was seen earlier this morning was treated felt better was discharged home. She does not believe the [employer] is working. Prior similar symptoms: Yes Recent Illness/Hospitalization : No PFSH PFS Medical History Postoperative pain History of depression Myocarditis History of pre-term labor depression Anxiety Depression Migraine History of delivery Home Medications ???Medication ???Instructions ???Recorded ???Last Taken ???Type vitamins-iron fumarate 65 1 tab PO DAILY 01/01/22 01/04/22 08:00 History mg iron-folic acid 1 mg tablet ondansetron 4 mg disintegrating 4 mg PO TID PRN nausea and 01/29/24 Unknown Rx tablet vomiting #21 tabs Allergy/AdvReac Type Severity Reaction Status Date / Time No Known Allergies Allergy Verified 01/28/24 22:00 Surgical History Delivery by section Inez teeth removed Social History Smoking Status: Never smoker ROS ROS ED ROS Narrative Nausea and vomiting. No abdominal pain. No fever. No dysuria. No vaginal bleeding. Review of Systems ROS Unobtainable: Denies due to encephalopathy Constitutional Constitutional ED: Denies chills or fever(s) ENT ENT ED: Denies ear pain Cardiovascular Cardiovascular: Denies chest pain Respiratory/Chest Respiratory/Chest: Denies cough or dyspnea Gastrointestinal Gastrointestinal: Reports nausea and vomiting; Denies abdominal pain, constipation, diarrhea or melena Genitourinary Genitourinary ED: Denies dysuria or hematuria Musculoskeletal Musculoskeletal: Denies arthralgias, back pain, myalgias or neck pain Integumentary Denies abscess or Abrasions Neurologic Neurologic: Denies headache(s), paresthesias or weakness Psychiatric Psychiatric: Denies anxiety or depression Endocrine Endocrinology: Denies polydipsia, polyphagia or polyuria Hematologic/Lymphatic Hematologic/Lymphatic: Denies easy bleeding, easy bruising or lymphadenopathy Allergic/Immunologic Allergic/Immunologic ED: Denies mouth swelling, tongue swelling or urticaria EXAM Physical Exam Narrative Exam Narrative: 28-year-old female no acute distress. Vital signs stable afebrile. H EENT exam unremarkable. Mytrex membranes. Neck nontender no lymphadenopathy. Lungs clear to auscultation bilaterally. Heart regular rhythm rate about 75 no murmur. Abdomen soft nondistended normal bowel sounds no peritoneal signs. Right upper or right lower quadrant unremarkable. No pelvic or suprapubic tenderness. Moving all 4 extremities. Calves are nontender that edema or cords. Back nontender. Neurologically she is awake and alert with no focal motor deficits. Const Vital Signs: 01/29/24 15:34 Temperature 97.5 F L Temperature Source Temporal Pulse Rate 75 Respiratory Rate 16 Blood Pressure 120/64 Blood Pressure Mean 82 Pulse Ox 100 Oxygen Delivery Method Room Air Positive well nourished and well developed; Negative for cachectic, contractures or unkempt General Appearance ED: well developed and NAD; Negative for unkempt, cachectic, contractures or pallor Nutritional Appearance: Negative for cachectic HEENT Reports moist mucous membranes normocephalic and atraumatic; Negative for trauma or tenderness Eyes PERRL and EOMs intact bilaterally General Eye ED: Negative for pale conjunctiva or scleral icterus Neck no lymphadenopathy, supple and no JVD General: Negative for tenderness Carotids: Negative for other Resp normal respiratory effort and clear to auscultation bilaterally Effort and Inspection: Negative for respiratory distress Auscultation: Negative for rales, rhonchi (more content not included)... [facility] Emergency Department Summary [facility] Medical Records Department [address] [place] [address] Emergency Department Summary 01/29/24 MR#: [id number] Acct: [id number] Name: KIMBERLY JEONG Rep #: [id number] : 1995 28 From: Vini Myers DO PCP: Dr. Surjit Aguirre MD Status:DEP ER Location: ED HPI History of Present Illness Chief Complaint: Nausea/Vomiting Informant: patient Narrative Narrative: Patient is a 28-year-old female who is a G3, P2 approximately 7 weeks . She reports with her last 2 pregnancies she had severe vomiting. She states that over the last 5 to 7 days she has had persistent nausea and vomiting and the inability to keep any type of food or fluid down. She denies any abdominal pain any vaginal discharge or bleeding she denies any loose stool or diarrhea. She states that with her last she needed IV Zofran as well as IV fluids to help with symptom control and therefore comes in for evaluation [facility] Medical History (Updated 01/29/24 @ 05:[address] Vini Myers, DO) Postoperative pain History of depression Myocarditis History of pre-term labor depression Anxiety Depression Migraine History of delivery Home Medications ???Medication ???Instructions ???Recorded ???Last Taken ???Type vitamins-iron fumarate 65 1 tab PO DAILY 01/01/22 01/04/22 08:00 History mg iron-folic acid 1 mg tablet ondansetron 4 mg disintegrating 4 mg PO TID PRN nausea and 01/29/24 Unknown Rx tablet vomiting #21 tabs Allergy/AdvReac Type Severity Reaction Status Date / Time No Known Allergies Allergy Verified 01/28/24 22:00 Surgical History Delivery by section Inez teeth removed Social History Smoking Status: Never smoker ROS ROS ED Constitutional Constitutional ED: Denies chills or fever(s) ENT ENT ED: Denies sore throat Cardiovascular Cardiovascular: Denies chest pain Respiratory/Chest Respiratory/Chest: Denies cough or dyspnea Gastrointestinal Gastrointestinal: Reports nausea and vomiting; Denies abdominal pain or diarrhea Genitourinary Genitourinary ED: Denies dysuria, hematuria or urinary frequency Musculoskeletal Musculoskeletal: Denies back pain or myalgias Integumentary Denies rash Neurologic Neurologic: Denies headache(s), paresthesias or weakness Hematologic/Lymphatic Hematologic/Lymphatic: Denies easy bleeding or easy bruising EXAM Physical Exam Const Vital Signs: 01/28/24 22:00 01/29/24 02:00 01/29/24 06:30 Temperature 97.9 F 97.6 F L Temperature Source Temporal Pulse Rate 82 68 68 Respiratory Rate 16 16 16 Blood Pressure 114/71 100/54 L 119/79 Blood Pressure Mean 85 69 92 Pulse Ox 98 97 97 Oxygen Delivery Method Room Air Room Air Positive well nourished and well developed General Appearance ED: well developed; Negative for pallor HEENT HEENT Narrative: Mucous membranes are dry and tacky However no signs of infection noted in the posterior pharynx No tongue or lip swelling no oral lesions no airway edema or compromise Eyes PERRL and EOMs intact bilaterally General Eye ED: Negative for pale conjunctiva or scleral icterus Neck supple Resp normal respiratory effort and clear to auscultation bilaterally Cardio regular rate and regular rhythm Rate: other Other Details: Heart is regular rate and rhythm without murmurs rubs or gallops GI non-tender and non-distended GI Narrative: Abdomen is soft nontender and nondistended with hyperactive bowel sounds. No voluntary guarding or rigidity or pulsatile mass Auscultation: hyperactive bowel sounds Palpation: soft Back/Spine no CVA tenderness Extremity normal to inspection Neuro oriented x3, CN's II-XII intact bilaterally and no sensory deficits noted Sensorium / Orientation: alert Motor Exam: strength 5/5 throughout Psych mental status grossly normal Skin no rashes or lesions noted Skin Narrative: Skin turgor is slightly increased General Skin Exam: Negative for jaundice or pallor MDM MDM MDM Narrative Medical decision making narrative: Patient presented to the ER with stable vitals and a soft nonsurgical abdomen. She had dry mucous membranes and reported bouts of vomiting without oral replacement. As differential diagnosis is dehydration versus hyperemesis gravidarum I did elect to place an IV and give her 2 L of fluid with IV Zofran. As vitals are stable her abdomen is soft and nonsurgical and my concern for underlying intestinal infection or acute kidney injury or severe abnormality is low do not feel the need for laboratory or imaging studies. Also as patient does not have any vaginal discharge or bleeding I do not f (more content not included)... [facility] Urinalysis, Completeon 01-28 AMORPHOUS 1+ URATE Normal [facility] Comment on above: Order Comment: CLEAN CATCH Performed By: #### L [id number] #### [facility] [address] [place], [place], [address] BACTERIA RARE Normal None Seen [facility] Comment on above: Order Comment: CLEAN CATCH Performed By: #### L [id number] #### [facility] [address] [place], [address] EPI,SQUAMOUS 10-25 SEEN Normal -10 [facility] Comment on above: Order Comment: CLEAN CATCH Performed By: #### L [id number] #### [facility] [address] [place], [address] WBC 5-10 SEEN Normal 0-5 [facility] Comment on above: Order Comment: CLEAN CATCH Performed By: #### [id number] #### [facility] [address] [place], [address] Mucus Ql (Urine sed) 0 SEEN Normal [facility] Comment on above: Order Comment: CLEAN CATCH Performed By: #### [id number] #### [facility] [address] [place], [address] RBC 0 SEEN Normal 0-5 [facility] Comment on above: Order Comment: CLEAN CATCH Performed By: #### [id number] #### [facility] [address] [place], [address] BACTERIAL VAGINOSIS NAATon 0 12-26-2023 Interpretation and review of laboratory results Abnormal [facility] Lactobacillus crispatus+gasseri+nella senii + Gardnerella vaginalis + Atopobium vaginae rRNA MARGARETTE+probe Ql (Vag fld) Positive Abnormal Negative for bacterial vaginosis [facility] MATHIEU/TRICHOMONAS NAATon 0 12-26-2023 C. glabrata RNA MARGARETTE+probe Ql (Vag fld) Negative Negative for Mathieu glabrata [facility] Mathieu sp DNA MARGARETTE+probe Ql (Vag fld) Negative Negative for Mathieu species [facility] Interpretation and review of laboratory results Normal [facility] T. vaginalis DNA MARGARETTE+probe Ql (Unsp spec) Negative Negative for Trichomonas vaginalis by amplification [facility] XR Ankle - right AP and Late ral and obliqueon 08-07-2023 IMPRESSION: No acute radiographic abnormalities seen in the right ankle. Clinical Services Manager: DONNA Transcribe Date/Time: Aug 07 2023 4:28P Dictated by : JOVANNI FIERRO MD This examination was interpreted and the report reviewed and electronically signed by: JOVANNI FIERRO MD on Aug 07 2023 4:30PM EST DIVISION OF RADIOLOGY * * *Final Report* [...] soft tissue swelling. DIVISION OF RADIOLOGY Provider, Amirah [facility] - 08/07/2023 * * *Final Report* * [...] radiographic abnormalities seen in the right ankle. Clinical Services Manager: PSCB Transcribe Date/Time: Aug 07 2023 4:28P Dictated by : JOVANNI FIERRO MD This examination was interpreted and the report reviewed and electronically signed by: JOVANNI FIERRO MD on Aug 07 2023 4:30PM EST [facility] XR Ankle - right AP and Late ral and obliqueOrdered By: Ccf Provider on 08-07-2023 [facility] XR Ankle - right AP and Late ral and obliqueon 08-04-2023 Radiology Study observation (narrative) [facility] UA DIP, URINE (POC)on 2022 BILIRUBIN UA (POCT) Negative Negative [facility] CLARITY UA (POCT) Clear [facility] COLOR UA (POCT) Yellow [facility] GLUCOSE UA (POCT) Negative Negative mg/dL [facility] Hemoglobin Ql (U) Negative Negative [facility] KETONE UA (POCT) Negative Negative mg/dL [facility] LEUKOCYTES UA (POCT) Negative Negative [facility] NITRITE UA (POCT) Negative Negative [facility] PH UA (POCT) 5.5 4.5 - 8.0 [facility] Protein Ql (U) Negative Negative mg/dL [facility] SPECIFIC GRAVITY UA (POCT) >=1.030 1.005 - 1.030 [facility] UROBILINOGEN UA (POCT) 0.2 E.U./dL Normal E.U./dL [facility] No Panel Informationon 04-17 IMPRESSION: Findings suggestive of a nondisplaced fracture involving the inferior tip of the medial malleolus. Clinical Services Manager: [facility] Transcribe Date/Time: Apr 17 2023 6:17P Dictated by : SERENITY ZHANG MD This examination was interpreted and the report reviewed and electronically signed by: SERENITY ZHANG MD on Apr 17 2023 6:33PM [facility] DIVISION OF RADIOLOGY Radiology Study observation (narrative) [facility] No Panel InformationOrdered By: Ccf Provider on 04-17-2023 [facility] XR Ankle - right AP and [...] and lateral malleoli. Joint spaces appear unremarkable. [facility] DIVISION OF RADIOLOGY [facility]23 * * *Final Report* * [...] the inferior tip of the medial malleolus. Clinical Services Manager: [facility] Transcribe Date/Time: Apr 17 2023 6:17P Dictated by : SERENITY ZHANG MD This examination was interpreted and the report reviewed and electronically signed by: SERENITY ZHANG MD on Apr 17 2023 6:33PM [facility] XR Foot - right AP and Later [...] and lateral malleoli. Joint spaces appear unremarkable. [facility] DIVISION OF RADIOLOGY Provider, Amirah luna Glade - 04/17/2023 * * *Final Report* * [...] the inferior tip of the medial malleolus. Clinical Services Manager: DONNA Transcribe Date/Time: Apr 17 2023 6:17P Dictated by : SERENITY ZHANG MD This examination was interpreted and the report reviewed and electronically signed by: SERENITY ZHANG MD on Apr 17 2023 6:33PM EST [facility] STREP A MOLECULAR (POC)on Procedural Control Valid [facility] Strep A (POCT) Negative Negative [facility] HCG QUAL UR B/Oon 02-21-2022 status Negative neg - pos [facility] Quality Check Yes [facility] Basophil percentageon 2021 WBC (Bld) [#/Vol] 15.1 10*3/uL 4.4-11.0 [place] [facility] Work Phone: Blood erythrocytes count (nu mber/volume)on 01-07-2022 RBC (Bld) [#/Vol] 3.66 10*6/uL 4.2-5.4 [facility] Work Phone: Blood hemoglobin measurement (mass/volume)on 01-07-2022 Hemoglobin (Bld) [Mass/Vol] 7.8 g/dL 12.0-15.0 [facility] Work Phone: Blood manual differential co mment interpretation (narrative result)on 01-07-2022 Manual differential comment Jared (Bld) [Interp] COMMENT [facility] Work Phone: Comment on above: 1+ ANISO. Blood platelet mean volumeon 01-07-2022 Platelet mean volume (Bld) [Entitic vol] 10.8 fL 6.2-12.0 [facility] Work Phone: Determination of erythrocyte mean corpuscular volume (MCV)on 01-07-2022 MCV (RBC) [Entitic vol] 73.8 fL 81-99 [facility] Work Phone: Hematocrit Auto (Bld) [Volum e fraction]on 01-07-2022 Hematocrit (Bld) [Volume fraction] 27.0 % 37-47 [facility] Work Phone: Laboratory - Hematology and Cell countson 01-07-2022 Erythrocyte distribution width (RBC) [Entitic vol] 47.0 fL 35.1-43.9 [facility] Work Phone: Erythrocyte distribution width (RBC) [Ratio] 23.3 % 11.6-14.6 [facility] Work Phone: MCH (RBC) [Entitic mass] 21.3 pg 27.0-32.0 [facility] Work Phone: MCHC Auto (RBC) [Mass/Vol]on 01-07-2022 MCHC (RBC) [Mass/Vol] 28.9 g/dL 32-36 [facility] Work Phone: Platelets bldon 01-07-2022 Platelets (Bld) [#/Vol] 308 10*3/uL 150-450 [facility] Work Phone: Absolute lymphocyte counton 01-04-2022 Lymphocytes Auto (Unsp spec) [#/Vol] 1.50 10*3/uL 0.83-4.51 [facility] Work Phone: Basophil percentageon 2021 Basophils/100 WBC (Bld) 0.1 % 0-1 [facility] Work Phone: Eosinophils/100 WBC (Bld) 0.7 % 0-5 [facility] Work Phone: [phone] Neutrophils (Bld) [#/Vol] 9.9 10*3/uL 2.0-7.7 [facility] Work Phone: Neutrophils/100 WBC (Bld) 81.2 % 47-70 [facility] Work Phone: [phone] Blood lymphocytes/100 leukoc yteson 01-04-2022 Lymphocytes/100 WBC (Bld) 12.3 % 19-41 [facility] Work Phone: Blood monocytes/100 leukocyt eson 01-04-2022 Monocytes/100 WBC (Bld) 4.5 % 0-10 [facility] Work Phone: Laboratory - Drug toxicology on 01-04-2022 Benzodiazepines Ql (U) Negative [facility] Work Phone: Cannabinoids Screen Ql (U) Negative [facility] Work Phone: Cocaine Ql (U) Negative [facility] Work Phone: Opiates Ql (U) Negative [facility] Work Phone: Laboratory - Hematology and Cell countson 01-04-2022 Immature granulocytes/100 WBC (Bld) 1.200 % 0.0-0.9 [facility] Work Phone: Comment on above: IG% - Immature Granu locytes (promyelocytes, myelocytes and metamyelocytes) > 1% indicates that a LEFT SHIFT is Present. Nucleated RBC/100 WBC (Bld) [Ratio] 0 % 0-5 [facility] Work Phone: No Panel Informationon 01-04 Group B Streptococcus Culture Group B Beta Streptococcus is not isolated. [facility] Work Phone: Specimen Comment (Misc) Not Reportable [facility] Work Phone: MDMA (Ecstasy) Screen Negative [facility] Work Phone: Urine Barbiturates Screen Negative [facility] Work Phone: Urine Drug Screen Comment [facility] Work Phone: Comment on above: CONFIRMATORY TESTING FOR ALL POSITIVE URINE DRUG SCREENRESULTS WILL ONLY BE SENT OUT UPON PHYSICIAN ORDER. VISTA Urine Drug Screen methods provide only preliminaryanalytical test results. A more specific alternate chemicalmethod must be used in order to obtain a confirmedanalytical result. Gas chromatography/mass spectrometery(GC/MS) is the preferred confirmatory method. Clinicalconsideration and professional judgement should be appliedto any drug of abuse test result, particularly whenpreliminary positive results are used. URINE TCA TESTING MUST BE ORDERED SEPARATELY. USE TESTMNEMONIC: [facility] Urine Methadone Screen Negative [facility] Work Phone: Thin prep Papanicolaou smear with manual screeningon 01-04-2022 Thin prep Papanicolaou smear with manual screening Negative Negative [facility] Work Phone: Urine amphetamine measuremen t (moles/volume)on 01-04-2022 Amphetamine (U) [Moles/Vol] Negative [facility] Work Phone: Urine phencyclidine (PCP) de tectionon 01-04-2022 Phencyclidine Ql (U) Negative [facility] Work Phone: Basophil percentageon 2021 Basophil percentage 5-10 SEEN /hpf [facility] Work Phone: Bilirubin Test strip Ql (U)o n 01-01-2022 Bilirubin Ql (U) Negative Negative [facility] Work Phone: Ketones Test strip Ql (U)on 01-01-2022 Ketones Ql (U) Negative Negative [facility] Work Phone: Mucus LM Ql (Urine sed)on Mucus Ql (Urine sed) 0 SEEN /hpf [facility] Work Phone: Nitrite Test strip Ql (U)on 01-01-2022 Nitrite Ql (U) Negative Negative [facility] Work Phone: No Panel Informationon 01-01 Group B Streptococcus Culture Group B Beta Streptococcus is not isolated. [facility] Work Phone: Specimen Comment (Misc) Not Reportable [facility] Work Phone: Vaginal Amniotic Fluid Detection Negative Negative [facility] Work Phone: Comment on above: Amniotic fluid not p resent indicates No Rupture of FetalMembranes at time of specimen collection. Protein Test strip Ql (U)on 01-01-2022 Protein Ql (U) 15 mg/dl Negative [facility] Work Phone: Squamous epithelial cells de tection in urine sediment by light microscopyon 01-01-2022 Epithelial cells.squamous LM Ql (Urine sed) 0-5 SEEN /hpf [facility] Work Phone: Thin prep Papanicolaou smear with manual screeningon 01-01-2022 Thin prep Papanicolaou smear with manual screening Negative Negative [facility] Work Phone: Urine blood detectionon 12-16 RBC Ql (U) Negative Negative [facility] Work Phone: RBC Ql (U) 0 SEEN /hpf [facility] Work Phone: Urine clarityon 01-01-2022 Clarity (U) Clear Clear [facility] Work Phone: Urine color determinationon 01-01-2022 Color (U) Yellow Yellow [facility] Work Phone: Urine glucose detectionon Glucose Ql (U) Normal mg/dl Normal [facility] Work Phone: Urine leukocyte esterase det ection by dipstickon 01-01-2022 Leukocyte esterase Test strip Ql (U) 100 /ul Negative [facility] Work Phone: Urine pHon 01-01-2022 pH (U) 6.5 [pH] [facility] Work Phone: Urine sediment bacteria coun t by microscopy (number/high power field)on 01-01-2022 Bacteria LM.HPF (Urine sed) [#/Area] 1 /[HPF] None Seen [facility] Work Phone: Urine specific gravity measu rementon 01-01-2022 Specific gravity (U) [Rel density] 1.010 [facility] Work Phone: Urobilinogen Auto test strip Ql (U)on 01-01-2022 Urobilinogen Ql (U) Normal mg/dl Normal [facility] Work Phone: URINE OB DIP B/Oon 2 Glucose Ql (U) Negative Neg mg/dL [facility] Protein.monoclonal (U) [Mass/Vol] Negative Neg mg/dL [facility] UA DIP, URINE (POC)on 2021 BILIRUBIN UA (POCT) Negative Negative [facility] CLARITY UA (POCT) Slightly Cloudy Cl [facility] COLOR UA (POCT) Yellow [facility] GLUCOSE UA (POCT) Negative Negative mg/dL [facility] HEMOGLOBIN/BLOOD UA (POCT) Trace-intact Abnormal Negative [facility] KETONE UA (POCT) Negative Negative mg/dL [facility] LEUKOCYTES UA (POCT) Trace Abnormal Negative [facility] NITRITE UA (POCT) Negative Negative [facility] PH UA (POCT) 7.0 4.5 - 8.0 [facility] Protein Ql (U) Negative Negative mg/dL [facility] SPECIFIC GRAVITY UA (POCT) 1.015 1.005 - 1.030 [facility] UROBILINOGEN UA (POCT) 0.2 E.U./dL Normal E.U./dL [facility] OBSTETRIC ULTRASOUND WHIon 0 12-17-2021 [facility] URINE OB DIP B/Oon 2 Glucose Ql (U) Negative Neg mg/dL [facility] Protein.monoclonal (U) [Mass/Vol] 30 mg/dL Neg mg/dL [facility] URINE OB DIP B/Oon 2 Glucose Ql (U) Negative Neg mg/dL [facility] Protein.monoclonal (U) [Mass/Vol] Negative Neg mg/dL [facility] URINE OB DIP B/Oon 2 Glucose Ql (U) Negative Neg mg/dL [facility] Protein.monoclonal (U) [Mass/Vol] trace Neg mg/dL [facility] CHROM KAYLA CHORIONIon 07-19 EER CHORIONIC VILLUS View results in Sca nned Documents link when available. Normal [facility] Comment on above: Order Comment: Speci men Type: CHORIONIC VILLI SAMPLE Performed By: #### C VCYTO #### [facility] CLIA [id number] Karyotype Nom ([facility]) View results in Scan lyn Documents link when available. Normal [facility] Comment on above: Order Comment: Speci men Type: CHORIONIC VILLI SAMPLE Performed By: #### C VCYTO #### [facility] CLIA [id number] [address] CNOVon 07-19-2021 CNOV Office Visit (AGMFM) ADENIKEKIMBERLY Librado ([id number]) 1995 F Date Time Provider Department 07/19/21 11:15 AM US RM1 BANANA GRADER AG MFM AGMFM During your visit today, we recorded the following information about you: Boubacar Shultz DO 07/20/2021 10:20 AM Signed Patient presents for CVS in the setting of an increased NT. Risks, benefits, and alternatives were reviewed. Informed consent was signed. Kimberly is Rh positive. See US reports for procedure details. Boubacar Shultz, DO Boubacar Shultz DO 07/20/2021 10:20 AM Signed - Please call the office before going to the hospital. - If you are , go to the ER at the [facility]. Do not go to the outlying ER?s ([place], [place] or [place]). - If you need to go to an ER and cannot or will not go downtown, please use one of [facility]?s ER?s (not [place], [place] or [place]). Referring Provider: BOUBACAR SHULTZ [[id number]] Allergies As of Date: 07/19/2021 Noted Allergy Reaction POLLEN 12/05/2011 14 - Other: See Comments Comments: Nasal congestion and drainage Date Reviewed: 07/17/2021 Reviewed by: Edvin Skaggs Ma - Fully Assessed Reason for Visit: US [4057] Cmt: CVS Primary Visit Diagnosis:Increased nuchal translucency space on ultrasound [O28.3] Other Visit Diagnosis:11 weeks gestation of [Z3A.11] Order(s):[facility] US WH [[id number]] Order #: [id number]: [id number] FISH, INSIGHT KAYLA [SQISIGHT] Order #: [id number] FUTURE CHROM KAYLA CHORIONI [SQCVCYTO] Order #: [id number] FUTURE Prescriptions as of 07/20/2021 - ondansetron [...] , go to the ER at the [facility]. Do not go to the outlying ER?s ([place], [place] or [place]). - If you need to go to an ER and cannot or will not go downtown, please use one of [facility]?s ER?s (not [facility], [place] or [facility]). Encounter Status:Closed by BOUBACAR SHULTZ on 07/20/21 [facility] FISH, INSIGHT ANALYon 2020 FISH, INSIGHT KAYLA View results in Scan lyn Documents link when available. [facility] Comment on above: Order Comment: Speci men Type: AMNIOTIC FLUID SPECIMEN Performed By: #### I SIGHT #### [facility] CLIA [id number] [address] [place] [address] STATES OF [facility] SEND OUT TEST 1on 07-19 REFERRAL LAB 1 [facility] Comment on above: Order Comment: Order ing Facility: [facility] Address: [address] [place], [place] [id number] Result Comment: Zulma ected result: Previously reported as [employer] on 08/10/2021 at 2:20 PM EST. Performed By: #### W [id number] #### [facility] CLIA [id number] 9500 COUNT INCLUDES THE [facility] [address] OF [place] TEST 1 TC 477, REVEAL SNP MICROARRAY, CVS Normal [facility] Comment on above: Order Comment: Order ing Facility: [facility] Address: [address] [place], [place] [id number] Result Comment: Zulma ected result: Previously reported as Chromosome Analysis on 08/10/2021 at 2:20 PM EST. Performed By: #### W [id number] #### [facility] CLIA [id number] [facility] [address] TEST RESULTS 1 Results sent to the physicians office Normal [facility] Comment on above: Order Comment: Order ing Facility: [facility] Address: [address] [place], [place] [id number] Result Comment: Zulma ected result: Previously reported as See detailed report in Epic (Scanned Documents/Scanned Lab 07-30-2021) on 08/10/2021 at 2:20 PM EST. Performed By: #### W [id number] #### [facility] CLIA [id number] [facility] COUNT INCLUDES THE [facility] [address] Vital Signs Date Time Vital Sign Value Performing Clinician Stefany damian 12-21-2024 16:51-0400 Body mass index (BMI) [Ratio] 28.39 kg/m2 Surjit Aguirre MD Work Phone: [facility] 12-21-2024 16:51-0400 Body weight 70.4 kg Surjit Aguirre MD Work Phone: [facility] 12-21-2024 16:51-0400 Diastolic blood pressure 62 mm[Hg] Surjti Aguirre MD Work Phone: [facility] 12-21-2024 16:51-0400 Heart rate 60 /min Surjit Aguirre MD Work Phone: [facility] 12-21-2024 16:51-0400 Respiratory rate 16 /min Surjit Aguirre MD Work Phone: [facility] 12-21-2024 16:51-0400 Systolic blood pressure 106 mm[Hg] Surjit Aguirre MD Work Phone: [facility] 11-26-2024 13:53-0400 Body mass index (BMI) [Ratio] 28.72 kg/m2 Lauryn Goetz APRN.CLINICAL MATERIAL HANDLER Work Phone: [facility] 11-26-2024 13:53-0400 Body weight 71.22 kg Lauryn Goetz APRN.CLINICAL MATERIAL HANDLER Work Phone: [facility] 11-26-2024 13:53-0400 Diastolic blood pressure 66 mm[Hg] Lauryn Goetz APRN.CLINICAL MATERIAL HANDLER Work Phone: [facility] 11-26-2024 13:53-0400 Systolic blood pressure 110 mm[Hg] Lauryn Goetz APRN.CLINICAL MATERIAL HANDLER Work Phone: [facility] 09-29-2024 15:59-0500 Body height 157.5 cm Danyell Alfredo MD Work Phone: [facility] 09-29-2024 15:59-0500 Body mass index (BMI) [Ratio] 28.17 kg/m2 Danyell Alfredo MD Work Phone: [facility] 09-29-2024 15:59-0500 Body weight 69.85 kg Danyell Alfredo MD Work Phone: [facility] 09-29-2024 15:59-0500 Diastolic blood pressure 60 mm[Hg] Danyell Alfredo MD Work Phone: [facility] 09-29-2024 15:59-0500 Systolic blood pressure 98 mm[Hg] Danyell Alfredo MD Work Phone: [facility] 09-08-2024 14:30-0500 Body mass index (BMI) [Ratio] 29.08 kg/m2 Rosario Garcia APRN.CNM Work Phone: [facility] 09-08-2024 14:30-0500 Body weight 72.12 kg Rosario Plotts HEALTH INFORMATION SPECIALIST.CNM Work Phone: [facility] 09-08-2024 14:30-0500 Diastolic blood pressure 62 mm[Hg] Rosario Plotts HEALTH INFORMATION SPECIALIST.CNM Work Phone: [facility] 09-08-2024 14:30-0500 Systolic blood pressure 100 mm[Hg] Rosario Plotts HEALTH INFORMATION SPECIALIST.CNM Work Phone: [facility] 08-25-2024 15:17-0500 Body mass index (BMI) [Ratio] 31.75 kg/m2 Bibiana Weathers MD Work Phone: [facility] 08-25-2024 15:17-0500 Body weight 78.74 kg Bibiana Weathers MD Work Phone: [facility] 08-25-2024 15:17-0500 Diastolic blood pressure 84 mm[Hg] Bibiana Weathers MD Work Phone: [facility] 08-25-2024 15:17-0500 Systolic blood pressure 120 mm[Hg] Bibiana Weathers MD Work Phone: [facility] 08-16-2024 10:26-0500 Body mass index (BMI) [Ratio] 34.75 kg/m2 Rosario Plotts HEALTH INFORMATION SPECIALIST.CNM Work Phone: [facility] 08-16-2024 10:26-0500 Body weight 86.18 kg Rosario Garcia HEALTH INFORMATION SPECIALIST.CNM Work Phone: [facility] 08-06-2024 15:55-0500 Body mass index (BMI) [Ratio] 35.12 kg/m2 Danyell Alfredo MD Work Phone: [facility] 08-06-2024 15:55-0500 Body weight 87.09 kg Danyell Alfredo MD Work Phone: [facility] 08-06-2024 15:55-0500 Diastolic blood pressure 60 mm[Hg] Danyell Alfredo MD Work Phone: [facility] 08-06-2024 15:55-0500 Systolic blood pressure 110 mm[Hg] Danyell Alfredo MD Work Phone: [facility] 07-22-2024 16:05-0500 Diastolic blood pressure 62 mm[Hg] Ob Remote Work Phone: [facility] 07-22-2024 16:05-0500 Systolic blood pressure 110 mm[Hg] Ob Remote Work Phone: [facility] 07-19-2024 15:50-0500 Body mass index (BMI) [Ratio] 34.02 kg/m2 Kanwal Chow HEALTH INFORMATION SPECIALIST.CNM Work Phone: [facility] 07-19-2024 15:50-0500 Body weight 84.37 kg Kanwal Chow APRN.CNM Work Phone: [facility] 07-19-2024 15:50-0500 Diastolic blood pressure 72 mm[Hg] Kanwal Chow HEALTH INFORMATION SPECIALIST.CNM Work Phone: [facility] 07-19-2024 15:50-0500 Systolic blood pressure 110 mm[Hg] Kanwal Chow HEALTH INFORMATION SPECIALIST.CNM Work Phone: [facility] 07-18-2024 08:40-0500 Body mass index (BMI) [Ratio] 33.35 kg/m2 Oswaldo Lopez APRN.CLINICAL MATERIAL HANDLER Work Phone: [facility] 07-18-2024 08:40-0500 Body temperature 97.5 [degF] Oswaldo Lopez APRN.CLINICAL MATERIAL HANDLER Work Phone: [facility] 07-18-2024 08:40-0500 Body weight 82.7 kg Oswaldo Lopez APRN.CLINICAL MATERIAL HANDLER Work Phone: [facility] 07-18-2024 08:40-0500 Diastolic blood pressure 64 mm[Hg] Oswaldo Lopez APRN.CLINICAL MATERIAL HANDLER Work Phone: [facility] 07-18-2024 08:40-0500 Heart rate 92 /min Oswaldo Lopez HEALTH INFORMATION SPECIALIST.CLINICAL MATERIAL HANDLER Work Phone: [facility] 07-18-2024 08:40-0500 Respiratory rate 16 /min Oswaldo Lopez HEALTH INFORMATION SPECIALIST.CLINICAL MATERIAL HANDLER Work Phone: [facility] 07-18-2024 08:40-0500 SaO2% (BldA) [Mass fraction] 97 % Oswaldo Lopez HEALTH INFORMATION SPECIALIST.CLINICAL MATERIAL HANDLER Work Phone: [facility] 07-18-2024 08:40-0500 Systolic blood pressure 108 mm[Hg] Oswaldo Lopez HEALTH INFORMATION SPECIALIST.CLINICAL MATERIAL HANDLER Work Phone: [facility] 07-12-2024 15:14-0500 Body mass index (BMI) [Ratio] 33.65 kg/m2 Rosario Garcia HEALTH INFORMATION SPECIALIST.CNM Work Phone: [facility] 07-12-2024 15:14-0500 Body weight 83.46 kg Rosario Garcia HEALTH INFORMATION SPECIALIST.CNM Work Phone: [facility] 07-12-2024 15:14-0500 Diastolic blood pressure 60 mm[Hg] Rosario Garcia HEALTH INFORMATION SPECIALIST.CNM Work Phone: [facility] 07-12-2024 15:14-0500 Systolic blood pressure 102 mm[Hg] Rosario Garcia HEALTH INFORMATION SPECIALIST.CNM Work Phone: [facility] 06-24-2024 15:18-0500 Body mass index (BMI) [Ratio] 33.65 kg/m2 Yobani Darby MD Work Phone: [facility] 06-24-2024 15:18-0500 Body weight 83.46 kg Yobani Darby MD Work Phone: [facility] 06-24-2024 15:18-0500 Diastolic blood pressure 62 mm[Hg] Yobani Darby MD Work Phone: [facility] 06-24-2024 15:18-0500 Systolic blood pressure 120 mm[Hg] Yobani Darby MD Work Phone: [facility] 06-09-2024 08:32-0400 Body mass index (BMI) [Ratio] 32.37 kg/m2 Sami Vora MD Work Phone: [facility] 06-09-2024 08:32-0400 Body weight 80.29 kg Sami Vora MD Work Phone: [facility] 06-09-2024 08:32-0400 Diastolic blood pressure 69 mm[Hg] Sami Vora MD Work Phone: [facility] 06-09-2024 08:32-0400 Heart rate 83 /min Sami Vora MD Work Phone: [facility] 06-09-2024 08:32-0400 Respiratory rate 16 /min Sami Vora MD Work Phone: [facility] 06-09-2024 08:32-0400 SaO2% (BldA) [Mass fraction] 100 % Sami Vora MD Work Phone: [facility] 06-09-2024 08:32-0400 Systolic blood pressure 113 mm[Hg] Sami Vora MD Work Phone: [facility] 05-26-2024 09:38-0400 Body height 157.5 cm Sami Vora MD Work Phone: [facility] 05-26-2024 09:38-0400 Body mass index (BMI) [Ratio] 32.56 kg/m2 Sami Vora MD Work Phone: [facility] 05-26-2024 09:38-0400 Body weight 80.74 kg Sami Vora MD Work Phone: [facility] 05-26-2024 09:38-0400 Diastolic blood pressure 65 mm[Hg] Sami Vora MD Work Phone: [facility] 05-26-2024 09:38-0400 Heart rate 91 /min Sami Vora MD Work Phone: [facility] 05-26-2024 09:38-0400 Respiratory rate 16 /min Sami Vora MD Work Phone: [facility] 05-26-2024 09:38-0400 SaO2% (BldA) [Mass fraction] 99 % Sami Vora MD Work Phone: [facility] 05-26-2024 09:38-0400 Systolic blood pressure 108 mm[Hg] Sami Vora MD Work Phone: [facility] 05-21-2024 15:24-0400 Body mass index (BMI) [Ratio] 32.56 kg/m2 Rosario Plotts HEALTH INFORMATION SPECIALIST.CNM Work Phone: [facility] 05-21-2024 15:24-0400 Body weight 80.74 kg Rosario TwtBksts HEALTH INFORMATION SPECIALIST.CNM Work Phone: [facility] 05-21-2024 15:24-0400 Diastolic blood pressure 58 mm[Hg] Rosario TwtBksts HEALTH INFORMATION SPECIALIST.CNM Work Phone: [facility] 05-21-2024 15:24-0400 Systolic blood pressure 110 mm[Hg] Rosario TwtBksts HEALTH INFORMATION SPECIALIST.CNM Work Phone: [facility] 05-13-2024 15:30-0400 Body mass index (BMI) [Ratio] 32.41 kg/m2 Bibiana Weathers MD Work Phone: [facility] 05-13-2024 15:30-0400 Body weight 80.38 kg Bibiana Weathers MD Work Phone: [facility] 05-13-2024 15:30-0400 Diastolic blood pressure 60 mm[Hg] Bibiana Weathers MD Work Phone: [facility] 05-13-2024 15:30-0400 Systolic blood pressure 100 mm[Hg] Bibiana Weathers MD Work Phone: [facility] 03-09-2024 09:49-0400 Body mass index (BMI) [Ratio] 31.28 kg/m2 Yobani Darby MD Work Phone: [facility] 03-09-2024 09:49-0400 Body weight 77.56 kg Yobani Darby MD Work Phone: [facility] 03-09-2024 09:49-0400 Diastolic blood pressure 68 mm[Hg] Yobani Darby MD Work Phone: [facility] 03-09-2024 09:49-0400 Systolic blood pressure 112 mm[Hg] Yobani Darby MD Work Phone: [facility] 03-01-2024 14:05-0400 Body mass index (BMI) [Ratio] 31.61 kg/m2 Surjit Aguirre MD Work Phone: [facility] 03-01-2024 14:05-0400 Body weight 78.38 kg Surjit Aguirre MD Work Phone: [facility] 03-01-2024 14:05-0400 Diastolic blood pressure 70 mm[Hg] Surjit Aguirre MD Work Phone: [facility] 03-01-2024 14:05-0400 Heart rate 98 /min Surjit Aguirre MD Work Phone: [facility] 03-01-2024 14:05-0400 Respiratory rate 18 /min Surjit Aguirre MD Work Phone: [facility] 03-01-2024 14:05-0400 Systolic blood pressure 118 mm[Hg] Surjit Aguirre MD Work Phone: [facility] 02-17-2024 09:37-0400 Body mass index (BMI) [Ratio] 32.26 kg/m2 Julienne Gordon MD Work Phone: [facility] 02-17-2024 09:37-0400 Body weight 80.02 kg Julienne Gordon MD Work Phone: [facility] 02-17-2024 09:37-0400 Diastolic blood pressure 70 mm[Hg] Julienne Gordon MD Work Phone: [facility] 02-17-2024 09:37-0400 Systolic blood pressure 112 mm[Hg] Julienne Gordon MD Work Phone: [facility] 02-04-2024 13:44-0400 Body height 157.5 cm Danii Haury HEALTH INFORMATION SPECIALIST.CLINICAL MATERIAL HANDLER Work Phone: [facility] 02-04-2024 13:44-0400 Body mass index (BMI) [Ratio] 32.56 kg/m2 Danii Haury HEALTH INFORMATION SPECIALIST.CLINICAL MATERIAL HANDLER Work Phone: [facility] 02-04-2024 13:44-0400 Body weight 80.74 kg Danii Haury HEALTH INFORMATION SPECIALIST.CLINICAL MATERIAL HANDLER Work Phone: [facility] 02-04-2024 13:44-0400 Diastolic blood pressure 62 mm[Hg] Danii Haury HEALTH INFORMATION SPECIALIST.CLINICAL MATERIAL HANDLER Work Phone: [facility] 02-04-2024 13:44-0400 Heart rate 72 /min Danii Haury HEALTH INFORMATION SPECIALIST.CLINICAL MATERIAL HANDLER Work Phone: [facility] 02-04-2024 13:44-0400 Respiratory rate 12 /min Danii Haury HEALTH INFORMATION SPECIALIST.CLINICAL MATERIAL HANDLER Work Phone: [facility] 02-04-2024 13:44-0400 SaO2% (BldA) [Mass fraction] 98 % Danii Haury HEALTH INFORMATION SPECIALIST.CLINICAL MATERIAL HANDLER Work Phone: [facility] 02-04-2024 13:44-0400 Systolic blood pressure 108 mm[Hg] Danii Haury HEALTH INFORMATION SPECIALIST.CLINICAL MATERIAL HANDLER Work Phone: [facility] 12-25-2023 15:50-0400 Body mass index (BMI) [Ratio] 33.66 kg/m2 Gisella Susi HEALTH INFORMATION SPECIALIST.CLINICAL MATERIAL HANDLER Work Phone: [facility] 12-25-2023 15:50-0400 Body weight 84.82 kg Gisella Susi HEALTH INFORMATION SPECIALIST.CLINICAL MATERIAL HANDLER Work Phone: [facility] 12-25-2023 15:50-0400 Diastolic blood pressure 62 mm[Hg] Gisella Mackville HEALTH INFORMATION SPECIALIST.CLINICAL MATERIAL HANDLER Work Phone: [facility] 12-25-2023 15:50-0400 Systolic blood pressure 110 mm[Hg] Gisella [place] HEALTH INFORMATION SPECIALIST.CLINICAL MATERIAL HANDLER Work Phone: [facility] 10-20-2023 18:05-0500 Body weight 79.47 kg Surjit Aguirre MD Work Phone: [facility] 10-20-2023 18:05-0500 Diastolic blood pressure 68 mm[Hg] Surjit Aguirre MD Work Phone: [facility] 10-20-2023 18:05-0500 Heart rate 74 /min Surjit Aguirre MD Work Phone: [facility] 10-20-2023 18:05-0500 Respiratory rate 16 /min Surjit Aguirre MD Work Phone: [facility] 10-20-2023 18:05-0500 Systolic blood pressure 100 mm[Hg] Surjit Aguirre MD Work Phone: [facility] 06-26-2023 18:30-0500 Body temperature 98.71 [degF] Keyana Thakkar HEALTH INFORMATION SPECIALIST.CLINICAL MATERIAL HANDLER Work Phone: [facility] 06-26-2023 18:30-0500 Body weight 81.83 kg Keyana Thakkar HEALTH INFORMATION SPECIALIST.CLINICAL MATERIAL HANDLER Work Phone: [facility] 06-26-2023 18:30-0500 Diastolic blood pressure 66 mm[Hg] Keyana Thakkar HEALTH INFORMATION SPECIALIST.CLINICAL MATERIAL HANDLER Work Phone: [facility] 06-26-2023 18:30-0500 Heart rate 95 /min Keyana Thakkar HEALTH INFORMATION SPECIALIST.CLINICAL MATERIAL HANDLER Work Phone: [facility] 06-26-2023 18:30-0500 Respiratory rate 19 /min Keyana Thakkar HEALTH INFORMATION SPECIALIST.CLINICAL MATERIAL HANDLER Work Phone: [facility] 06-26-2023 18:30-0500 SaO2% (BldA) [Mass fraction] 98 % Keyana Thakkar HEALTH INFORMATION SPECIALIST.CLINICAL MATERIAL HANDLER Work Phone: [facility] 06-26-2023 18:30-0500 Systolic blood pressure 100 mm[Hg] Keyana Thakkar HEALTH INFORMATION SPECIALIST.CLINICAL MATERIAL HANDLER Work Phone: [facility] 06-03-2023 07:06-0400 Body height 158.8 cm Lauryn Goetz APRN.CLINICAL MATERIAL HANDLER Work Phone: [facility] 06-03-2023 07:06-0400 Body weight 79.83 kg Lauryn Goetz HEALTH INFORMATION SPECIALIST.CLINICAL MATERIAL HANDLER Work Phone: [facility] 06-03-2023 07:06-0400 Diastolic blood pressure 64 mm[Hg] Lauryn Goetz HEALTH INFORMATION SPECIALIST.CLINICAL MATERIAL HANDLER Work Phone: [facility] 06-03-2023 07:06-0400 Systolic blood pressure 110 mm[Hg] Lauryn Goetz HEALTH INFORMATION SPECIALIST.CLINICAL MATERIAL HANDLER Work Phone: [facility] 04-17-2023 17:20-0400 Body temperature 98.8 [degF] Duane Higuera HEALTH INFORMATION SPECIALIST.CLINICAL MATERIAL HANDLER Work Phone: [facility] 04-17-2023 17:20-0400 Body weight 81.01 kg Duane Higuera HEALTH INFORMATION SPECIALIST.CLINICAL MATERIAL HANDLER Work Phone: [facility] 04-17-2023 17:20-0400 Diastolic blood pressure 68 mm[Hg] Duane Higuera HEALTH INFORMATION SPECIALIST.CLINICAL MATERIAL HANDLER Work Phone: [facility] 04-17-2023 17:20-0400 Heart rate 78 /min Duane Higuera HEALTH INFORMATION SPECIALIST.CLINICAL MATERIAL HANDLER Work Phone: [facility] 04-17-2023 17:20-0400 Respiratory rate 18 /min Duane Higuera HEALTH INFORMATION SPECIALIST.CLINICAL MATERIAL HANDLER Work Phone: [facility] 04-17-2023 17:20-0400 SaO2% (BldA) [Mass fraction] 99 % Duane Higuera HEALTH INFORMATION SPECIALIST.CLINICAL MATERIAL HANDLER Work Phone: [facility] 04-17-2023 17:20-0400 Systolic blood pressure 112 mm[Hg] Duane Higuera HEALTH INFORMATION SPECIALIST.CLINICAL MATERIAL HANDLER Work Phone: [facility] 09-02-2022 15:33-0500 Body weight 74.12 kg Surjit Aguirre MD Work Phone: [facility] 09-02-2022 15:33-0500 Diastolic blood pressure 70 mm[Hg] Surjit Aguirre MD Work Phone: [facility] 09-02-2022 15:33-0500 Heart rate 100 /min Surjit Agiurre MD Work Phone: [facility] 09-02-2022 15:33-0500 Respiratory rate 16 /min Surjit Aguirre MD Work Phone: [facility] 09-02-2022 15:33-0500 Systolic blood pressure 118 mm[Hg] Surjit Aguirre MD Work Phone: [facility] 08-28-2022 16:14-0500 Body temperature 99.1 [degF] Tramaine Rosales MD Work Phone: [facility] 08-28-2022 16:14-0500 Body weight 69.85 kg Tramaine Rosales MD Work Phone: [facility] 08-28-2022 16:14-0500 Diastolic blood pressure 82 mm[Hg] Tramaine Rosales MD Work Phone: [facility] 08-28-2022 16:14-0500 Heart rate 81 /min Tramaine Rosales MD Work Phone: [facility] 08-28-2022 16:14-0500 Respiratory rate 16 /min Tramaine Rosales MD Work Phone: [facility] 08-28-2022 16:14-0500 SaO2% (BldA) [Mass fraction] 97 % Tramaine Rosales MD Work Phone: [facility] 08-28-2022 16:14-0500 Systolic blood pressure 120 mm[Hg] Tramaine Rosales MD Work Phone: [facility] 08-19-2022 08:00-0500 Body temperature 97.5 [degF] Kanwal Wiggins HEALTH INFORMATION SPECIALIST.CLINICAL MATERIAL HANDLER Work Phone: [facility] 08-19-2022 08:00-0500 Body weight 69.85 kg Kanwal Rosalie HEALTH INFORMATION SPECIALIST.CLINICAL MATERIAL HANDLER Work Phone: [facility] 08-19-2022 08:00-0500 Diastolic blood pressure 82 mm[Hg] Kanwal Wiggins HEALTH INFORMATION SPECIALIST.CLINICAL MATERIAL HANDLER Work Phone: [facility] 08-19-2022 08:00-0500 Heart rate 72 /min Kanwal Wiggins HEALTH INFORMATION SPECIALIST.CLINICAL MATERIAL HANDLER Work Phone: [facility] 08-19-2022 08:00-0500 Respiratory rate 18 /min Kanwal Wiggins HEALTH INFORMATION SPECIALIST.CLINICAL MATERIAL HANDLER Work Phone: [facility] 08-19-2022 08:00-0500 SaO2% (BldA) [Mass fraction] 98 % Kanwal Wiggins HEALTH INFORMATION SPECIALIST.CLINICAL MATERIAL HANDLER Work Phone: [facility] 08-19-2022 08:00-0500 Systolic blood pressure 124 mm[Hg] Kanwal Wiggins HEALTH INFORMATION SPECIALIST.CLINICAL MATERIAL HANDLER Work Phone: [facility] 05-16-2022 10:00-0400 Body weight 72.58 kg Nurse Wstr Work Phone: [facility] 05-16-2022 10:00-0400 Diastolic blood pressure 64 mm[Hg] Nurse Wstr Work Phone: [facility] 05-16-2022 10:00-0400 Systolic blood pressure 116 mm[Hg] Nurse Wstr Work Phone: [facility] 03-22-2022 10:45-0400 Body weight 68.95 kg Rosario Plotts HEALTH INFORMATION SPECIALIST.CNM Work Phone: [facility] 03-22-2022 10:45-0400 Diastolic blood pressure 64 mm[Hg] Rosario Plotts HEALTH INFORMATION SPECIALIST.CNM Work Phone: [facility] 03-22-2022 10:45-0400 Systolic blood pressure 118 mm[Hg] Rosario Plotts HEALTH INFORMATION SPECIALIST.CNM Work Phone: [facility] 03-01-2022 09:21-0400 Body temperature 97 [degF] Surjit Aguirre MD Work Phone: [facility] 03-01-2022 09:21-0400 Body weight 66.22 kg Surjit Aguirre MD Work Phone: [facility] 03-01-2022 09:21-0400 Diastolic blood pressure 70 mm[Hg] Surjit Aguirre MD Work Phone: [facility] 03-01-2022 09:21-0400 Heart rate 74 /min Surjit Aguirre MD Work Phone: [facility] 03-01-2022 09:21-0400 Respiratory rate 16 /min Surjit Aguirre MD Work Phone: [facility] 03-01-2022 09:21-0400 Systolic blood pressure 122 mm[Hg] Surjit Aguirre MD Work Phone: [facility] 02-21-2022 09:12-0400 Body weight 66.22 kg Nurse Wstr Work Phone: [facility] 02-21-2022 09:12-0400 Diastolic blood pressure 50 mm[Hg] Nurse Wstr Work Phone: [facility] 02-21-2022 09:12-0400 Systolic blood pressure 92 mm[Hg] Nurse Wstr Work Phone: [facility] 02-19-2022 15:27-0400 Body weight 68.04 kg Rosario Plotts HEALTH INFORMATION SPECIALIST.CNM Work Phone: [facility] 02-19-2022 15:27-0400 Diastolic blood pressure 60 mm[Hg] Rosario Plotts HEALTH INFORMATION SPECIALIST.CNM Work Phone: [facility] 02-19-2022 15:27-0400 Systolic blood pressure 108 mm[Hg] Rosario Plotts HEALTH INFORMATION SPECIALIST.CNM Work Phone: [facility] 01-18-2022 14:56-0400 Body weight 58.51 kg Kanwal Chow HEALTH INFORMATION SPECIALIST.CNM Work Phone: [facility] 01-18-2022 14:56-0400 Diastolic blood pressure 58 mm[Hg] Kanwal Chow HEALTH INFORMATION SPECIALIST.CNM Work Phone: [facility] 01-18-2022 14:56-0400 Systolic blood pressure 98 mm[Hg] Kanwal Chow HEALTH INFORMATION SPECIALIST.CNM Work Phone: [facility] 01-08-2022 08:12-0400 Body temperature 97 [degF] [facility] Work Phone: 01-08-2022 08:12-0400 Diastolic blood pressure 65 mm[Hg] [facility] Work Phone: 01-08-2022 08:12-0400 Heart rate 82 /min [facility] Work Phone: 01-08-2022 08:12-0400 Respiratory rate 16 /min [facility] Work Phone: 01-08-2022 08:12-0400 SaO2% (BldA) [Mass fraction] 98 % [facility] Work Phone: 01-08-2022 08:12-0400 Systolic blood pressure 107 mm[Hg] [facility] Work Phone: 01-04-2022 17:58-0400 Body height 157.48 cm [facility] Work Phone: 01-04-2022 17:58-0400 Body mass index (BMI) [Ratio] 28.3 kg/m2 [facility] Work Phone: 01-04-2022 17:58-0400 Body weight 70.2 kg [facility] Work Phone: 01-01-2022 20:24-0400 Diastolic blood pressure 74 mm[Hg] [facility] Work Phone: 01-01-2022 20:24-0400 Heart rate 68 /min [facility] Work Phone: 01-01-2022 20:24-0400 Systolic blood pressure 126 mm[Hg] [facility] Work Phone: 01-01-2022 20:18-0400 Body temperature 97.9 [degF] [facility] Work Phone: 01-01-2022 20:14-0400 Body mass index (BMI) [Ratio] 28.4 kg/m2 [facility] Work Phone: 01-01-2022 20:14-0400 Body weight 70.5 kg [facility] Work Phone: 12-31-2021 14:29-0400 Body weight 72.12 kg Kanwal Chow HEALTH INFORMATION SPECIALIST.CNM Work Phone: [facility] 12-31-2021 14:29-0400 Diastolic blood pressure 60 mm[Hg] Kawnal Chow HEALTH INFORMATION SPECIALIST.CNM Work Phone: [facility] 12-31-2021 14:29-0400 Systolic blood pressure 112 mm[Hg] Kanwal Chow HEALTH INFORMATION SPECIALIST.CNM Work Phone: [facility] 12-27-2021 14:32-0400 Body weight 71.22 kg Rosario Garcia HEALTH INFORMATION SPECIALIST.CNM Work Phone: [facility] 12-27-2021 14:32-0400 Diastolic blood pressure 62 mm[Hg] Rosario Plotjoshua HEALTH INFORMATION SPECIALIST.CNM Work Phone: [facility] 12-27-2021 14:32-0400 Systolic blood pressure 110 mm[Hg] Rosario Plotjoshua HEALTH INFORMATION SPECIALIST.CNM Work Phone: [facility] 12-25-2021 14:22-0400 Body temperature 97.39 [degF] Treatment Wstr Work Phone: [facility] 12-25-2021 14:22-0400 Diastolic blood pressure 64 mm[Hg] Treatment Wstr Work Phone: [facility] 12-25-2021 14:22-0400 Heart rate 77 /min Treatment Wstr Work Phone: [facility] 12-25-2021 14:22-0400 Systolic blood pressure 114 mm[Hg] Treatment Wstr Work Phone: [facility] 12-17-2021 13:45-0400 Body weight 69.85 kg Rosario Plotts HEALTH INFORMATION SPECIALIST.CNM Work Phone: [facility] 12-17-2021 13:45-0400 Diastolic blood pressure 60 mm[Hg] Rosario Plotts HEALTH INFORMATION SPECIALIST.CNM Work Phone: [facility] 12-17-2021 13:45-0400 Systolic blood pressure 100 mm[Hg] Rosario Plotts HEALTH INFORMATION SPECIALIST.CNM Work Phone: [facility] 12-04-2021 14:38-0400 Body weight 69.31 kg Rosario Plotts HEALTH INFORMATION SPECIALIST.CNM Work Phone: [facility] 12-04-2021 14:38-0400 Diastolic blood pressure 60 mm[Hg] Rosario Plotts HEALTH INFORMATION SPECIALIST.CNM Work Phone: [facility] 12-04-2021 14:38-0400 Systolic blood pressure 94 mm[Hg] Rosario Plotts HEALTH INFORMATION SPECIALIST.CNM Work Phone: [facility] 11-13-2021 10:26-0400 Body weight 67.22 kg Yobani Darby MD Work Phone: [facility] 11-13-2021 10:26-0400 Diastolic blood pressure 60 mm[Hg] Yobani Darby MD Work Phone: [facility] 11-13-2021 10:26-0400 Systolic blood pressure 98 mm[Hg] Yobani Darby MD Work Phone: [facility] Encounters Encounter Date Encounter Type Care Provider Facility Start: 12-21-2024 End: 12-21-2024 Office outpatient visit 25 minutes Surjit Aguirre MD Work Phone: [facility] [place] Comment on above: Anxiety with depress ion (Primary Dx); Screening for depression; Encounter for screening examination for other mental health and behavioral disorders; Depression, unspecified depression type; Chronic insomnia Start: 12-21-2024 End: 12-21-2024 ambulatory SURJIT AGUIRRE Facility:[facility] Start: 11-27-2024 End: 01-27-2025 Follow-up encounter Lauryn Goetz APRN.CLINICAL MATERIAL HANDLER Work Phone: OB/Gynecology Start: 11-26-2024 End: 11-26-2024 ambulatory [facility] Facility:[facility] Start: 11-26-2024 End: 11-26-2024 Patient encounter procedure Lauryn Goetz APRN.CLINICAL MATERIAL HANDLER Work Phone: OB/Gynecology Comment on above: Vaginal discharge (P rimary Dx); Vaginal irritation Start: 09-29-2024 End: 09-29-2024 [facility] Facility:[facility] Start: 09-29-2024 End: 09-29-2024 Patient encounter procedure Danyell Alfredo MD Work Phone: OB/Gynecology Comment on above: care and examination (Primary Dx) Start: 09-08-2024 End: 09-08-2024 [facility] Facility:[facility] Start: 09-08-2024 End: 09-08-2024 Patient encounter procedure Rosario Garcia HEALTH INFORMATION SPECIALIST.CNM Work Phone: OB/Gynecology Comment on above: Vaginal discharge (P rimary Dx); Dysuria; Lactating mother; History of section Start: 09-06-2024 End: 09-07-2024 ambulatory Rosario Edsonjoshua HEALTH INFORMATION SPECIALIST.CNM Work Phone: OB/Gynecology Comment on above: Concern of infection Start: 09-01-2024 ambulatory Asia Berman [facility] Start: 08-25-2024 End: 08-25-2024 ambulatory [facility] Facility:[facility] Start: 08-25-2024 End: 08-25-2024 Patient encounter procedure Bibiana Weathers MD Work Phone: OB/Gynecology Comment on above: care and examination immediately after delivery (Primary Dx) Start: 08-24-2024 End: 08-25-2024 Telephone encounter Bibiana Weathers MD Work Phone: OB/Gynecology Comment on above: Care Start: 08-23-2024 ambulatory Anastasiia Russo [employer] Faci lity:[facility] Start: 08-19-2024 End: 08-19-2024 Telephone encounter Yobani Darby MD Work Phone: OB/Gynecology Comment on above: Refill Request Start: 08-18-2024 End: 08-19-2024 ambulatory Bibiana Weathers MD Work Phone: OB/Gynecology Comment on above: Ob Delivery Note Start: 08-17-2024 End: 08-19-2024 Evaluation and management of inpatient Bibiana Weathers Facility:[facility] Start: 08-16-2024 End: 08-16-2024 ambulatory [facility] Facility:[facility] Start: 08-16-2024 End: 08-16-2024 Patient encounter procedure Rosario Garcia APRN.CNM Work Phone: OB/Gynecology Comment on above: Supervision of high risk in third trimester (Primary Dx); Excessive growth affecting management of in third trimester, single or unspecified fetus; H/O delivery, currently ; History of section; Anxiety during ; 36 weeks gestation of Start: 08-06-2024 End: 08-06-2024 [facility] Facility:[facility] Start: 08-06-2024 End: 08-06-2024 Patient encounter procedure Danyell Alfredo MD Work Phone: OB/Gynecology Comment on above: Supervision of high risk in third trimester (Primary Dx); Excessive growth affecting management of in third trimester, single or unspecified fetus; H/O delivery, currently ; History of section; Need for RSV vaccination; 35 weeks gestation of Start: 07-22-2024 End: 07-22-2024 Patient encounter procedure Storm Sash Maker [facility] Work Phone: Maternal Medicine Comment on above: Encounter for ultras ound to check growth (Primary Dx); Obesity affecting in third trimester, unspecified obesity type; 33 weeks gestation of Start: 07-22-2024 End: 07-22-2024 ambulatory [facility] Facility:[facility] Start: 07-19-2024 End: 07-19-2024 Patient encounter procedure Kanwal Chow APRN.CNM Work Phone: OB/Gynecology Comment on above: Supervision of high risk in third trimester (Primary Dx); 32 weeks gestation of ; H/O delivery, currently ; History of section Start: 07-19-2024 End: 07-19-2024 ambulatory Danii Weinberg HEALTH INFORMATION SPECIALIST.CLINICAL MATERIAL HANDLER Work Phone: OB/Gynecology Comment on above: Covid Start: 07-19-2024 End: 07-19-2024 Telephone encounter Montserrat DAVILA Work Phone: [facility] Comment on above: Results Start: 07-18-2024 End: 07-18-2024 [facility] Facility:[facility] Start: 07-18-2024 End: 07-18-2024 Patient encounter procedure Oswaldo Lopez HEALTH INFORMATION SPECIALIST.CLINICAL MATERIAL HANDLER Work Phone: [place] Comment on above: URI, acute (Primary Dx) Start: 07-12-2024 End: 07-12-2024 [facility] Facility:[facility] Start: 07-12-2024 End: 07-12-2024 Patient encounter procedure Rosario Garcia APRN.CNM Work Phone: OB/Gynecology Comment on above: 31 weeks gestation o f (Primary Dx); Supervision of high risk in third trimester; History of delivery; History of section; Uterine size-date discrepancy, third trimester Start: 07-01-2024 End: 07-01-2024 [facility] Facility:[facility] Start: 06-25-2024 End: 06-25-2024 Orders Only Asia Berman MD Work Phone: [facility] Laboratory Comment on above: Abnormal glucose com plicating (Primary Dx) Start: 06-24-2024 End: 06-24-2024 Patient encounter procedure Yobani Darby MD Work Phone: OB/Gynecology Comment on above: Supervision of high risk in third trimester (Primary Dx); 28 weeks gestation of ; Need for vaccination; Obesity affecting in third trimester, unspecified obesity type Start: 06-24-2024 End: 06-24-2024 [facility] Facility:[facility] Start: 06-13-2024 End: 06-13-2024 Emergency department patient visit Burton Lydia Facility:[facility] Start: 06-09-2024 End: 06-09-2024 ambulatory [facility] Facility:[facility] Start: 06-09-2024 End: 06-09-2024 Patient encounter procedure Sami Vora MD Work Phone: Cardiology Comment on above: Sinus tachycardia [R 00.0] (Primary Dx); Palpitations [R00.2]; , unspecified gestational age [Z34.90] Start: 06-07-2024 ambulatory SAMI VORA Facility:[facility] Start: 06-07-2024 End: 06-07-2024 Subsequent hospital visit by physician [facility] Work Phone: Cardiology Lab Comment on above: Palpitations [R00.2] Start: 05-27-2024 End: 05-27-2024 ambulatory [facility] Facility:[facility] Start: 05-27-2024 End: 05-27-2024 Patient encounter procedure [employer] 1 Storm S[employer] [facility] Comment on above: History of bobby garcia, currently (Primary Dx); 24 weeks gestation of [...] Primary Dx) Start: 05-21-2024 End: 05-21-2024 ambulatory [facility] Facility:[facility] Start: 05-21-2024 End: 05-21-2024 Patient encounter procedure Rosario Garcia APRN.CNM Work Phone: OB/Gynecology Comment on above: High-risk in second trimester (Primary Dx); 23 weeks gestation of ; Heart palpitations; Dizziness Start: 05-21-2024 End: 02-25-2025 Telephone encounter Rosario Garcia APRN.CNM Work Phone: OB/Gynecology Start: 05-20-2024 End: 05-20-2024 ambulatory Danii Weinberg APRN.CLINICAL MATERIAL HANDLER Work Phone: OB/Gynecology Comment on above: Heart palpitations w hen laying flat or sitting, feeling like my sugar is low Start: 05-17-2024 End: 05-19-2024 Telephone encounter Danii Weinberg APRN.CLINICAL MATERIAL HANDLER Work Phone: OB/Gynecology Comment on above: Orders Start: 05-13-2024 End: 05-13-2024 Patient encounter procedure Bibiana Weathers MD Work Phone: OB/Gynecology Comment on above: 22 weeks gestation o f (Primary Dx); Encounter for supervision of high risk in first trimester, antepartum; Obesity affecting in first trimester, unspecified obesity type Start: 05-13-2024 End: 05-13-2024 ambulatory [facility] Facility:[facility] Start: 05-13-2024 End: 05-13-2024 [facility] Facility:[facility] Start: 05-13-2024 End: 05-13-2024 Patient encounter procedure Storm Sash Maker [facility] Work Phone: Maternal Medicine Comment on [...] 05-11-2024 End: 05-12-2024 Telephone encounter Danii Weinberg APRN.CLINICAL MATERIAL HANDLER Work Phone: OB/Gynecology Start: 05-05-2024 End: 05-05-2024 Telephone encounter [facility] Work Phone: Maternal Medicine Comment on above: Appointment Start: 04-14-2024 End: 04-14-2024 ambulatory SURJIT Rosales [facility] Facility:[facility] Start: 04-14-2024 End: 04-14-2024 Patient encounter procedure Storm S[facility] Work Phone: OB/Gynecology Comment on above: History of d eliverjd (Primary Dx); 18 weeks gestation of Start: 04-07-2024 End: 04-07-2024 Chart abstracting Gisella Goldman APRN.CLINICAL MATERIAL HANDLER Work Phone: OB/Gynecology Comment on above: Patient Update Start: 04-06-2024 End: 04-06-2024 Emergency department patient visit Eliseo Shamika Facility:[facility] Start: 04-02-2024 ambulatory Danii GRIFFIN RN.CLINICAL MATERIAL HANDLER Work Phone: OB/Gynecology Comment on above: UTI Start: 03-31-2024 Telephone encounter Danii miles APRN.CNP Work Phone: OB/Gynecology Start: 03-09-2024 End: 03-09-2024 ambulatory SURJIT Bobby [facility] Facility:[facility] Start: 03-09-2024 End: 03-09-2024 Patient encounter procedure Yobani Darby MD Work [...] weeks gestation of Start: 03-01-2024 End: 03-01-2024 Patient encounter procedure Surjit Aguirre MD Work Phone: [facility] [place] Comment on above: TMJ dysfunction (Jovanna prasanth Dx) Start: 02-17-2024 End: 02-17-2024 Patient encounter procedure Julienne Gordon MD Work Phone: Maternal Medicine Comment on above: Obesity affecting pr egnancy in first trimester, unspecified obesity type (Primary Dx); 8 weeks gestation of ; Hyperemesis affecting , antepartum; H/O delivery, currently ; Depression affecting ; Anxiety during ; History of viral myocarditis; Family history of spina bifida; Tetrahydrocannabinol (THC) use disorder, mild, abuse Start: 02-12-2024 Telephone encounter Danii miles APRN.CLINICAL MATERIAL HANDLER Work Phone: OB/Gynecology Comment on above: Orders Start: 02-09-2024 Telephone encounter Danii miles APRN.CLINICAL MATERIAL HANDLER Work Phone: OB/Gynecology Comment on above: Patient Update (Optu m) Start: 02-06-2024 End: 02-06-2024 ambulatory [facility] Facility:[facility] Start: 02-04-2024 Telephone encounter Historical [facility] Comment on above: Orders Start: 02-04-2024 End: 02-04-2024 Patient encounter procedure Danii Weinberg APRN.CLINICAL MATERIAL HANDLER Work Phone: OB/Gynecology Comment on above: Encounter [...] abuse; Family history of spina bifida Start: 02-02-2024 End: 02-02-2024 Emergency department patient visit [facility] Facility:[facility] Start: 01-31-2024 End: 02-01-2024 ambulatory Yobani Darby Facility:[facility] Start: 01-30-2024 Telephone encounter Yobani rosa MD Work Phone: OB/Gynecology Comment on above: Opened In Error Start: 01-29-2024 End: 01-29-2024 Emergency department patient visit [facility] Facility:[facility] Start: 01-28-2024 End: 01-29-2024 Emergency department patient visit Surjit Aguirre Facility:[facility] Start: 01-22-2024 ambulatory Rosario guzman HEALTH INFORMATION SPECIALIST.CNM Work Phone: OB/Gynecology Comment on above: Nausea Start: 12-26-2023 Telephone encounter Gisella prince HEALTH INFORMATION SPECIALIST.CLINICAL MATERIAL HANDLER Work Phone: OB/Gynecology Comment on above: Results Start: 12-25-2023 End: 12-25-2023 Patient encounter procedure Gisella Susi HEALTH INFORMATION SPECIALIST.CLINICAL MATERIAL HANDLER Work Phone: OB/Gynecology Comment on above: Screening for STDs ( sexually transmitted diseases) (Primary Dx); Vaginal irritation Start: 10-20-2023 End: 10-20-2023 Patient encounter procedure Surjit Aguirre MD Work Phone: [facility] [place] Comment on above: Trochanteric bursiti s of right hip (Primary Dx) Start: 09-24-2023 End: 09-24-2023 ambulatory Kimberly Tom [employer] Work Phone: [facility] Physical Therapy Comment on above: Unspecified injury o f right ankle, subsequent encounter (Primary Dx); Sprain of unspecified ligament of right ankle, initial encounter Start: 08-04-2023 End: 08-04-2023 Subsequent hospital visit by physician [facility] Work Phone: Radiology Comment on above: Injury of right ankl e, subsequent encounter [S99.911D] Start: 06-26-2023 End: 06-26-2023 Patient encounter procedure Keyana Thakkar HEALTH INFORMATION SPECIALIST.CLINICAL MATERIAL HANDLER Work Phone: [facility] Comment on above: URI with cough and c ongestion (Primary Dx); Acute otitis media, right; Feared condition not demonstrated Start: 06-25-2023 Orders Only Lauryn GRIFFIN RN.CLINICAL MATERIAL HANDLER Work Phone: OB/Gynecology Start: 06-03-2023 End: 06-03-2023 Patient encounter procedure Lauryn Goetz APRN.CLINICAL MATERIAL HANDLER Work Phone: OB/Gynecology Comment on above: Encounter for gyneco logical examination (general) (routine) without abnormal findings (Primary Dx); Sensation of pressure in bladder area; Class 1 obesity with body mass index (BMI) of 31.0 to 31.9 in adult, unspecified obesity type, unspecified whether serious comorbidity present Start: 06-03-2023 End: 06-03-2023 Patient encounter status Lauryn Goetz APRN.CLINICAL MATERIAL HANDLER Work Phone: [facility] Work Phone: Start: 04-30-2023 Orders Only Alexandru Gonzalez Work Phone: Orthopaedics Comment on above: Injury of lower leg, right, initial encounter (Primary Dx) Start: 04-17-2023 End: 04-17-2023 Subsequent hospital visit by physician Xr [facility] [place] Work Phone: Radiology Comment on above: Injury of right lowe r extremity, initial encounter [S89.91XA] Start: 04-17-2023 End: 04-17-2023 Patient encounter procedure Duane Higuera APRN.CLINICAL MATERIAL HANDLER Work Phone: [facility] Comment on above: Injury of right lowe r extremity, initial encounter (Primary Dx) Start: 11-11-2022 Telephone encounter Surjit pulido MD Work Phone: [facility] [place] Comment on above: Appointment Start: 10-01-2022 ambulatory Surjit tatum MD Work Phone: Family [facility] [place] Comment on above: Throat pain Start: 09-02-2022 ambulatory Surjit tatum MD Work Phone: [facility] Start: 09-02-2022 End: 09-02-2022 Patient encounter procedure Surjit Aguirre MD Work Phone: [facility] [place] Comment on above: Appointment Sore throat (Primary Dx); Depression, unspecified depression type Start: 08-28-2022 End: 08-28-2022 Patient encounter procedure Tramaine Rosales MD Work Phone: Family [facility] [place] Comment on above: Pharyngitis, unspeci fied etiology (Primary Dx); Globus sensation Start: 08-19-2022 End: 08-19-2022 Patient encounter procedure Kanwal Wiggins HEALTH INFORMATION SPECIALIST.CLINICAL MATERIAL HANDLER Work Phone: [facility] Comment on above: Pharyngitis, unspeci fied etiology (Primary Dx); Acute otitis media, right Start: 08-07-2022 ambulatory Rosario guzman HEALTH INFORMATION SPECIALIST.CNM Work Phone: OB/Gynecology Comment on above: Coming in warly Start: 05-16-2022 End: 05-16-2022 Nursing evaluation of patient and report Nurse [employer] [facility] Work Phone: OB/Gynecology Comment on above: Encounter for manage ment and injection of depo-Provera (Primary Dx) Start: 03-22-2022 End: 03-22-2022 Patient encounter procedure Rosario Garcia HEALTH INFORMATION SPECIALIST.CNM Work Phone: OB/Gynecology Comment on above: Breakthrough bleedin g on depo provera (Primary Dx) Start: 03-14-2022 ambulatory Rosario guzman HEALTH INFORMATION SPECIALIST.CNM Work Phone: OB/Gynecology Comment on above: Period Start: 03-01-2022 End: 03-01-2022 Patient encounter procedure Surjit Aguirre MD Work Phone: [facility] Comment on above: Anxiety with depress ion (Primary Dx) Start: 02-21-2022 End: 02-21-2022 Nursing evaluation of patient and report Nurse [employer] T[employer] [facility] Work Phone: OB/Gynecology Comment on above: Initiation of Depo P rovera (Primary Dx); Encounter for management and injection of depo-Provera Start: 02-19-2022 End: 02-19-2022 Patient encounter procedure Rosario Garcia HEALTH INFORMATION SPECIALIST.CNM Work Phone: OB/Gynecology Comment on above: care and examination (Primary Dx) Start: 02-15-2022 ambulatory Rosario guzman HEALTH INFORMATION SPECIALIST.CNM Work Phone: OB/Gynecology Comment on above: Appt Start: 01-18-2022 End: 01-18-2022 Patient encounter procedure Kanwal Chow APRN.CNM Work Phone: OB/Gynecology Comment on above: Single delivery by c esarean section (Primary Dx); care and examination of lactating mother; Encounter for screening for maternal depression Start: 01-15-2022 ambulatory Rosario guzman APRN.DIPIKA Work Phone: [facility] Start: 01-15-2022 Patient encounter procedure Rosario Garcia APRN.CNM Work Phone: OB/Gynecology Comment on above: Making appointment Start: 01-07-2022 ambulatory Leonila [place] Work Phone: OB/Gynecology Comment on above: Ob Delivery Note Start: 01-04-2022 End: 01-08-2022 Evaluation and management of inpatient [facility] Start: 01-04-2022 Telephone encounter Leonila skinner MD Work Phone: OB/Gynecology Comment on above: OB Contractions Start: 01-01-2022 End: 01-01-2022 Patient encounter procedure [facility], Outpatients Start: 12-31-2021 End: 12-31-2021 Patient encounter procedure Kanwal Chow APRN.CNM Work Phone: OB/Gynecology Comment on above: 35 weeks gestation o f (Primary Dx) Start: 12-31-2021 End: 12-31-2021 ambulatory Treatment Rm 4 Iain [facility] Work Phone: Hematology/Oncology Comment on above: Anemia complicating , third trimester (Primary Dx) Start: 12-27-2021 End: 12-27-2021 Patient encounter procedure Rosario Garcia APRN.CNM Work Phone: OB/Gynecology Comment on above: 34 weeks gestation o f (Primary Dx); Acute bilateral low back pain without sciatica; H/O delivery, currently Start: 12-27-2021 ambulatory Rosario guzman APRN.DIPIKA Work Phone: OB/Gynecology Comment on above: Just don t know if I should worry or not Start: 12-25-2021 End: 12-25-2021 ambulatory Treatment Rm 7 Iain [facility] Work Phone: Hematology/Oncology Comment on above: Anemia complicating , third trimester (Primary Dx) Start: 12-19-2021 ambulatory Sharri Subramanian RN [facility] Comment on above: Blood management Start: 12-17-2021 Telephone encounter Rosario hendrix APRN.CNM Work Phone: OB/Gynecology Comment on above: Results (referral to Hemoc for Iron Sucrose) Start: 12-17-2021 End: 12-17-2021 Patient encounter procedure Julienne Gordon MD Work Phone: Maternal Medicine Comment [...] vaccination Start: 09-18-2021 Telephone encounter Kanwal raymond APRN.CNM Work Phone: OB/Gynecology Comment on above: Opened In Error Procedures Date Procedure Procedure Detail Performing Clinician Start: 12-21-2024 Adult depression screening assessment Surjit Aguirre MD Work Phone: Start: 09-08-2024 Urnls dip stick/tabl et rgnt auto w/o microscopy Rosario Garcia HEALTH INFORMATION SPECIALIST.CNM Work Phone: Start: 08-16-2024 Urnls dip stick/tabl et rgnt non-auto w/o micrscp Rosario Garcia HEALTH INFORMATION SPECIALIST.CNM Work Phone: Start: 08-06-2024 RSV VACCINE, BIVALEN T (ABRYSVO) Danyell Alfredo MD Work Phone: Start: 08-06-2024 Urnls dip stick/tabl et rgnt non-auto w/o micrscp Danyell Alfredo MD Work Phone: Start: 07-22-2024 Us preg uterus after 1st trimest 1/ gestation Yobani Darby MD Work Phone: Start: 07-19-2024 Urnls dip stick/tabl et rgnt auto w/o microscopy Kanwal Chow HEALTH INFORMATION SPECIALIST.CNM Work Phone: Start: 06-07-2024 Echo tthrc r-t 2d w/wom-mode compl spec&colr d Pollo Tyler MD Work Phone: Start: 05-27-2024 Us preg uterus after 1st trimest 1/1st gestation Danii Weinberg HEALTH INFORMATION SPECIALIST.CLINICAL MATERIAL HANDLER Work Phone: Start: 05-13-2024 Us preg uterus after 1st trimest 1/1st gestation Vini Diez MD Work Phone: Start: 04-14-2024 Us preg uterus after 1st trimest 1/1st gestation Yobani Darby MD Work Phone: Start: 03-09-2024 Us nuchal translucency 1st gestation Danii Weinberg HEALTH INFORMATION SPECIALIST.CLINICAL MATERIAL HANDLER Work Phone: Start: 02-04-2024 End: 09-29-2024 H/O: section History of section Danii Weinberg APRN.CLINICAL MATERIAL HANDLER Work Phone: Start: 02-04-2024 Us uterus limited 1/> fetuses Danii Weinberg APRN.CLINICAL MATERIAL HANDLER Work Phone: Start: 12-25-2023 BACTERIAL VAGINOSIS NAAT Gisella Goldman HEALTH INFORMATION SPECIALIST.CLINICAL MATERIAL HANDLER Work Phone: Start: 12-25-2023 Iadna trichomonas vaginalis amplified probe azucena Goldman HEALTH INFORMATION SPECIALIST.CLINICAL MATERIAL HANDLER Work Phone: Start: 08-04-2023 Radex ankle complete minimum 3 views Surjit Aguirre MD Work Phone: Start: 06-03-2023 Urnls dip stick/tabl et rgnt auto w/o microscopy Lauryn Goetz HEALTH INFORMATION SPECIALIST.CLINICAL MATERIAL HANDLER Work Phone: Start: 04-17-2023 Radex ankle complete minimum 3 views Duane Higuera HEALTH INFORMATION SPECIALIST.CLINICAL MATERIAL HANDLER Work Phone: Start: 08-19-2022 STREP A MOLECULAR (POC) Kanwal Wiggins HEALTH INFORMATION SPECIALIST.CLINICAL MATERIAL HANDLER Work Phone: Start: 02-21-2022 Urine test visual color cmprsn meths Yobani Darby MD Work Phone: Start: 01-04-2022 Group B Streptococcu s Culture Start: 01-04-2022 End: 01-04-2022 Viral antigen assay Start: 01-01-2022 Group B Streptococcu s Culture Start: 12-31-2021 URINE OB DIP B/O Jovon Chow HEALTH INFORMATION SPECIALIST.CNM Work Phone: Start: 12-27-2021 Urnls dip stick/tabl et rgnt auto w/o microscopy Rosario Garcia HEALTH INFORMATION SPECIALIST.CNM Work Phone: Start: 12-17-2021 URINE OB DIP B/O Vern Garcia HEALTH INFORMATION SPECIALIST.CNM Work Phone: Start: 12-17-2021 Us preg uterus after 1st trimest 08/18 gestation Rosario Garcia HEALTH INFORMATION SPECIALIST.CNM Work Phone: Start: 12-04-2021 URINE OB DIP B/O Vern Garcia HEALTH INFORMATION SPECIALIST.CNM Work Phone: Start: 11-13-2021 URINE OB DIP B/O Yobani Darby MD Work Phone: H/O: section History of section Rosario Garcia HEALTH INFORMATION SPECIALIST.CNM Work Phone: H/O: section History of section Kanwalmorris Chow APRN.CNM Work Phone: H/O: section History of section Danyell Alfredo MD Work Phone: H/O: section History of section Rosario Garcia APRN.DIPIKA Work Phone: H/O: section History of section Yobani Darby MD Work Phone: H/O: section History of section Rosario Garcia APRN.CNM Work Phone: Plan of Treatment Date Care Activity Detail Author Start: 06-24-2034 Urine microalbumin profile DTaP,Tdap,Td Vaccine (11 - Td or Tdap) [facility] Start: 11-14-2031 Urine microalbumin profile [facility] Start: 07-04-2030 Urine microalbumin profile DTAP,TDAP,TD (8 - Td or Tdap) [facility] Start: 02-03-2027 Screening for malign ant neoplasm of cervix Cervical Cancer Screening [facility] Start: 12-21-2025 Anxiety Screening Anxiety Screening [facility] Start: 12-21-2025 Depression Screening Depression Scre ening [facility] Start: 09-30-2025 End: 09-30-2025 Patient encounter procedure 09/30/2025 4:00 PM EST Office Visit OB/Gynecology [address] [place], [place] [id number] Rosario Garcia APRN.CN [address] [place] [address] Annual OB/Gynecology Comment on above: Annual Start: 04-18-2025 Influenza vaccination [facility] Start: 03-25-2025 End: 03-25-2025 Patient encounter procedure 03/25/2025 4:40 PM EDT Office Visit [facility] [place] [address] [place], [place] [id number] Surjit Aguirre MD [address] [place] [id number] 3 mo f/u [facility] [place] Comment on above: 3 mo f/u Start: 12-21-2024 End: 12-21-2024 Patient encounter procedure 12/21/2024 4:40 PM EDT Office Visit [facility] [place] [address] [place] [address] Surjit Aguirre MD [address] [place] [address] Having meds taken over [facility] [place] Comment on above: Having meds taken ov er Start: 09-29-2024 End: 09-29-2024 Patient encounter procedure 09/29/2024 3:50 PM EST Office Visit OB/Gynecology [address] [place] [address] Danyell Jurado MD [address] [place] [address] Post Post 6w OB/Gynecology Comment on above: Post Post 6w Start: 09-15-2024 End: 09-15-2024 Patient encounter procedure 09/15/2024 3:40 PM EST Office Visit OB/Gynecology [address] [place] [address] Asia Berman MD [address] [place] [address] Incision Check OB/Gynecology Comment on above: Incision Check Start: 09-08-2024 End: 09-08-2024 Patient encounter procedure 09/08/2024 2:30 PM EST Office Visit OB/Gynecology [address] [place] [address] Rosario Garcia APRN.CN [address] [place] [address] PP Vaginitis OB/Gynecology Comment on above: PP Vaginitis Start: 08-25-2024 End: 08-25-2024 Patient encounter procedure 08/25/2024 2:50 PM EST Office Visit OB/Gynecology [address] [place] [address] Bibiana Weathers MD [address] [place] [address] 1 weep PP, C/S on 08/18 OB/Gynecology Comment on above: 1 weep PP, C/S on 08/18 Start: 08-24-2024 End: 08-24-2024 Patient encounter procedure 08/24/2024 9:50 AM EST Routine Office Visit OB/Gynecology [address] [place] [address] Bibiana Weathers MD [address] [place] [address] OB OB/Gynecology Comment on above: OB Start: 08-20-2024 End: 08-20-2024 Patient encounter procedure 08/20/2024 2:50 PM EST Routine Office Visit OB/Gynecology [address] [place] [address] Asia Berman MD [address] [place] [address] OB Pre Op C/S 09/01 @ [facility] OB/Gynecology Comment on above: OB Pre Op C/S 09/01 @ [facility] Start: 08-13-2024 End: 08-13-2024 Patient encounter procedure 08/13/2024 4:30 PM EST Routine Office Visit OB/Gynecology [address] [place] [address] Danii Weinberg APRN.CLINICAL MATERIAL HANDLER [address] [place] [address] OB OB/Gynecology Comment on above: OB Start: 08-06-2024 End: 08-06-2024 Patient encounter procedure 08/06/2024 3:50 PM EST Routine Office Visit OB/Gynecology [address] [place] [address] Danyell Jurado MD [address] [place] [address] routine ob OB/Gynecology Comment on above: routine ob Start: 08-04-2024 Covid-19 Vaccine (#1) Covid-19 Vacci ne (#1) [facility] Comment on above: Postponed from 05/07 (Declined at this time) Start: 08-04-2024 Covid-19 Vaccine () Covid-19 Vaccine () [facility] Comment on above: Postponed from 04/18 (Declined at this time) Start: 07-29-2024 End: 07-29-2024 Patient encounter procedure 07/29/2024 3:15 PM EST Routine Office Visit OB/Gynecology [address] [place] [address] Rosario Garcia APRN.CN [address] [place] [id number] OB OB/Gynecology Comment on above: OB Start: 07-22-2024 End: 07-22-2024 Patient encounter procedure OB/Gynecology Comment on above: routine ob Obesity affecting pr egnancy in third trimester, unspecified obesity type [O99.213] Start: 07-18-2024 RSV Vaccine (1 - Ris k 1-dose series) RSV Vaccine (1 - Risk 1-dose series) [facility] Start: 07-14-2024 RSV Vaccine (1 - Ris k 1-dose series) RSV Vaccine (1 - Risk 1-dose series) [facility] Start: 07-12-2024 End: 07-12-2024 Patient encounter procedure 07/12/2024 3:15 PM EST Routine Office Visit OB/Gynecology [address] [place] [address] Rosario Garcia APRN.[facility] [address] [place] [address] routine ob OB/Gynecology Comment on above: routine ob Start: 06-25-2024 End: 09-24-2024 GEST GLUC NORA, 3-HR, 100 GM, FASTING GEST GLUC NORA, 3-HR, 100 GM, FASTING Lab Routine Abnormal glucose complicating Expected: 06/25/2024, Expires: 09/24/2024 [facility] Work Phone: Comment on above: Expected: 06/25/2024 , Expires: 09/24/2024 Start: 06-24-2024 End: 09-23-2024 CBC W Auto Differential panel - Blood COMPLETE BLOOD COUNT AND DIFFERENTIAL Lab Routine 22 weeks gestation of Encounter for supervision of high risk in first trimester, antepartum Obesity affecting in first trimester, unspecified obesity type Expected: 06/24/2024 (Approximate), Expires: 09/23/2024 [facility] Comment on above: Expected: 06/24/2024 (Approximate), Expires: 09/23/2024 Start: 06-24-2024 End: 09-23-2024 GESTATIONAL GLUCOSE SCREEN, 1-HOUR, 50 GRAM, NON-FASTING GESTATIONAL GLUCOSE SCREEN, 1-HOUR, 50 GRAM, NON-FASTING Lab Routine 22 weeks gestation of Encounter for supervision of high risk in first trimester, antepartum Obesity affecting in first trimester, unspecified obesity type Expected: 06/24/2024 (Approximate), Expires: 09/23/2024 [facility] Work Phone: Comment on above: Expected: 06/24/2024 (Approximate), Expires: 09/23/2024 Start: 06-24-2024 End: 06-24-2025 OBSTETRIC ULTRASOUND WHI OBSTETRIC ULTRASOUND WHI Anc Imaging Routine Obesity affecting in third trimester, unspecified obesity type Expected: 06/24/2024, Expires: 06/24/2025 [facility] Work Phone: Comment on above: Expected: 06/24/2024 , Expires: 06/24/2025 Start: 06-24-2024 End: 09-23-2024 SYPHILIS TOTAL W/REFLEX SYPHILIS TOTAL W/REFLEX Lab Routine 22 weeks gestation of Encounter for supervision of high risk in first trimester, antepartum Obesity affecting in first trimester, unspecified obesity type Expected: 06/24/2024 (Approximate), Expires: 09/23/2024 [facility] Comment on above: Expected: 06/24/2024 (Approximate), Expires: 09/23/2024 Start: 06-19-2024 PAP TESTING PAP TESTING [facility] Start: 06-19-2024 Screening for malign ant neoplasm of cervix [facility] Start: 06-10-2024 End: 06-10-2024 Patient encounter procedure OB/Gynecology Comment on above: OB Routine OB Routine - 28 week labs done at 24 weeks? Start: 06-09-2024 End: 06-09-2024 Patient encounter procedure 06/09/2024 8:30 AM EDT Office Visit Cardiology [address] [place] [address] Sami Vora MD [address] [facility] [address] [place] [address] Primary Diagnosis Palpitations Cardiology Comment on above: Primary Diagnosis Pa lpitations Start: 06-07-2024 End: 06-07-2024 Patient encounter procedure 06/07/2024 9:00 AM EDT Appointment Cardiology Lab [address] [place] [address] Palpitations [R00.2]spoke to the patient Cardiology Lab Comment on above: Palpitations [R00.2] spoke to the patient Start: 06-04-2024 End: 06-04-2024 Patient encounter procedure 06/04/2024 7:00 AM EDT Office Visit OB/Gynecology [address] [place], [place] [phone] Lauryn Goetz APRN.CLINICAL MATERIAL HANDLER [address] [place] [address] Annual Exam OB/Gynecology Comment on above: Annual Exam Start: 06-03-2024 End: 06-03-2024 Patient encounter procedure 06/03/2024 7:00 AM EDT Office Visit OB/Gynecology [address] [place] [address] Lauryn Goetz APRN.CLINICAL MATERIAL HANDLER [address] [place] [address] ANNUAL OB/Gynecology Comment on above: ANNUAL Start: 05-27-2024 End: 05-27-2024 Patient encounter procedure 05/27/2024 1:30 PM EDT Routine Office Visit Maternal Medicine [address] [phone] Cervical length/ History of labor [Z87.51] Maternal Medicine Comment on above: Cervical length/ His tory of labor [Z87.51] Start: 05-26-2024 End: 05-26-2024 Patient encounter procedure 05/26/2024 10:00 AM EDT Office Visit Cardiology [address] [place] [address] Sami Vora MD [address] [facility] [address] [place] [address] Dx. Cardiac Eval Cardiology Comment on above: Dx. Cardiac Eval Start: 05-26-2024 End: 05-26-2024 ambulatory 05/26/2024 9:00 AM EDT Results Only Cardiology [address] [place] [address] Dx. Cardiac Eval Cardiology Comment on above: Dx. Cardiac Eval Start: 05-21-2024 End: 05-21-2024 Patient encounter procedure 05/21/2024 3:15 PM EDT Routine Office Visit OB/Gynecology [address] [place] [address] Rosario Garcia APRN.CNM [address] [place] [address] See my chart note OB/Gynecology Comment on above: See my chart note Start: 05-17-2024 End: 05-17-2025 OBSTETRIC ULTRASOUND WHI OBSTETRIC ULTRASOUND WHI Anc Imaging Routine History of labor Expected: 05/17/2024, Expires: 05/17/2025 [facility] Work Phone: Comment on above: Expected: 05/17/2024 , Expires: 05/17/2025 Start: 05-13-2024 End: 05-13-2024 Patient encounter procedure 05/13/2024 3:50 PM EDT Routine Office Visit OB/Gynecology [address] [place], [place] [phone] Bibiana Weathers MD [address] [place] [address] Anatomy/OB OB/Gynecology Comment on above: Anatomy/OB Start: 05-13-2024 End: 05-13-2024 Patient encounter procedure 05/13/2024 1:30 PM EDT Routine Office Visit Maternal Medicine [address] [phone] Anatomy/ Cervical length patient needs to be [...] for anatomic survey Expected: 05/12/2024, Expires: 05/12/2025 [facility] Work Phone: Comment on above: Expected: 05/12/2024 , Expires: 05/12/2025 Start: 05-06-2024 End: 05-06-2024 Patient encounter procedure 05/06/2024 9:30 AM EDT Routine Office Visit Maternal Medicine [address] [phone] anatomy Maternal Medicine Comment on above: anatomy Start: 04-28-2024 End: 04-28-2024 Patient encounter procedure 04/28/2024 2:50 PM EDT Routine Office Visit OB/Gynecology [address] [place] [address] Danyell Jurado MD [address] [place] [address] Anatomy/OB OB/Gynecology Comment on above: Anatomy/OB Start: 04-28-2024 End: 04-28-2024 Patient encounter procedure 04/28/2024 1:30 PM EDT Routine Office Visit OB/Gynecology [address] [place] [address] Anatomy/OB OB/Gynecology Comment on above: Anatomy/OB Start: 04-18-2024 Covid-19 Vaccine ( season) Covid-19 Vaccine () [facility] Start: 04-18-2024 Covid-19 Vaccine () Covid-19 Vaccine () [facility] Start: 04-18-2024 Influenza vaccination [facility] Start: 04-14-2024 End: 04-14-2024 Patient encounter procedure 04/14/2024 8:00 AM EDT Routine Office Visit OB/Gynecology [address] [place] [phone] Cervical legth OB/Gynecology Comment on above: Cervical legth Start: 04-05-2024 End: 04-05-2024 Patient encounter procedure 04/05/2024 3:50 PM EDT Routine Office Visit OB/Gynecology [address] [place] [address] Leonila Holley MD [address] [place] [address] OB/ UTI OB/Gynecology Comment on above: OB/ UTI Start: 04-01-2024 End: 04-01-2024 Patient encounter procedure OB/Gynecology Comment on above: Cervical length Cervical Length/OB Start: 03-09-2024 End: 06-08-2024 Chromosome 21 trisomy [Presence] in Blood or Tissue by Cytogenetics [facility] Work Phone: Comment on above: Expected: 03/09/2024 , Expires: 06/08/2024 Start: 03-09-2024 End: 03-09-2024 Patient encounter procedure OB/Gynecology Comment on above: Nuchal Start: 02-17-2024 End: 02-17-2024 Patient encounter procedure 02/17/2024 9:30 AM EDT Routine Office Visit OB/Gynecology [address] [place], [place] [address] Consult to [facility] OB/Gynecology Comment on above: Consult to [facility] Start: 02-15-2024 Influenza vaccination Influenza Vacc ine (#1) [facility] Comment on above: Postponed from 04/18 (Declined at this time) Start: 02-04-2024 End: 05-05-2024 CARRIER SCREEN, ST[facility]ARD [facility] Comment on above: Expected: 02/04/2024 , Expires: 05/05/2024 Start: 02-04-2024 End: 05-05-2024 Hemoglobin A1c in Blood [facility] Work Phone: Comment on above: Expected: 02/04/2024 , Expires: 05/05/2024 Start: 02-04-2024 End: 02-03-2025 NUCHAL TRANSLUCENCY WHI NUCHAL TRANSLUCENCY WHI Anc Imaging Routine Encounter for supervision of high risk in first trimester, antepartum 8 weeks gestation of Expected: 02/04/2024, Expires: 02/03/2025 [facility] Comment on above: Expected: 02/04/2024 , Expires: 02/03/2025 Start: 02-04-2024 End: 02-04-2024 Patient encounter procedure 02/04/2024 1:45 PM EDT Initial Office Visit OB/Gynecology [address] [place] [phone] Danii Weinberg APRN.CLINICAL MATERIAL HANDLER [address] [place] [address] OB/Gynecology Comment on above: Start: 04-18-2023 Influenza vaccination [facility] Start: 08-28-2022 End: 10-28-2022 Heterophile Ab [Presence] in Serum by Latex agglutination [facility] Work Phone: Comment on above: Expected: 08/28/2022 , Expires: 10/28/2022 Start: 04-18-2022 Influenza vaccination INFLUENZA (#1) [facility] Start: 12-04-2021 End: 02-03-2022 CBC W Auto Differential panel - Blood CBC + DIFF Lab Routine Anemia complicating , third trimester Expected: 12/04/2021, Expires: 02/03/2022 [facility] Work Phone: Comment on above: Expected: 12/04/2021 , Expires: 02/03/2022 Start: 12-04-2021 End: 02-03-2022 FERRITIN BLD FERRITIN BLD Lab Routine Anemia complicating , third trimester Expected: 12/04/2021, Expires: 02/03/2022 [facility] Work Phone: Comment on above: Expected: 12/04/2021 , Expires: 02/03/2022 Start: 12-04-2021 End: 02-03-2022 IRON + TIBC IRON + TIBC Lab Routine Anemia complicating , third trimester Expected: 12/04/2021, Expires: 02/03/2022 [facility] Work Phone: Comment on above: Expected: 12/04/2021 , Expires: 02/03/2022 Start: 2014 Anxiety Screening Anxiety Screening [facility] Start: 2014 Depression Screening Depression Scre ening [facility] Start: 04-28-2014 MENINGOCOCCAL B: Consider based on risk (2 of 2 - Risk Bexsero 2-dose series) MENINGOCOCCAL B: Consider based on risk (2 of 2 - Risk Bexsero 2-dose series) [facility] Start: 2010 PEDS TO ADULT TRANSI TION ANNUAL ASSESSMENT PEDS TO ADULT TRANSITION ANNUAL ASSESSMENT [facility] Start: 2008 PEDS TO ADULT TRANSI TION INITIAL DISCUSSION PEDS TO ADULT TRANSITION INITIAL DISCUSSION [facility] Start: 2001 COVID-19 VACCINE (#1) COVID-19 VACCI NE (#1) [facility] Start: 2001 COVID-19 VACCINE (1) COVID-19 VACCIN E (1) [facility] Start: 05-07-1997 COVID-19 VACCINE (#1) COVID-19 VACCI NE (#1) [facility] Bacteria identified in Urine by Culture URINE CULTURE Microbiology Routine Encounter for supervision of high risk in first trimester, antepartum 02/04/2024 2:19 PM EDT [facility] Bacteria identified in Urine by Culture URINE CULTURE Microbiology Routine Supervision of high risk in third trimester 32 weeks gestation of H/O delivery, currently History of section 07/19/2024 4:29 PM [facility] Work Phone: Bacteria identified in Urine by Culture BACTERIAL CULTURE, URINE Microbiology Routine Vaginal discharge 09/08/2024 2:59 PM [facility] BACTERIAL VAGINOSIS NAAT BACTERI AL VAGINOSIS NAAT Lab Routine Vaginal discharge 09/08/2024 2:46 PM [facility] BACTERIAL VAGINOSIS NAAT BACTERI AL VAGINOSIS NAAT Lab Routine Vaginal discharge Vaginal irritation 11/26/2024 2:33 PM T [facility] MATHIEU/TRICHOMONAS NAAT MATHIEU /TRICHOMONAS NAAT Lab Routine Vaginal discharge 09/08/2024 2:46 PM [facility] Work Phone: MATHIEU/TRICHOMONAS NAAT MATHIEU /TRICHOMONAS NAAT Lab Routine Vaginal discharge Vaginal irritation 11/26/2024 2:33 PM EDT [facility] Work Phone: Chlamydia trachomatis+Neisseria gonorrhoeae DNA [Presence] in Unspecified specimen by MARGARETTE with probe detection GONORRHEA/CHLAMYDIA NAAT Lab Routine Screening for STDs (sexually transmitted diseases) 12/25/2023 4:16 PM T [facility] Work Phone: Chlamydia trachomatis+Neisseria gonorrhoeae DNA [Presence] in Unspecified specimen by MARGARETTE with probe detection GONORRHEA/CHLAMYDIA NAAT Lab Routine Encounter for supervision of high risk in first trimester, antepartum 02/04/2024 2:19 PM EDT [facility] COVID & INFLUENZA A/ B & RSV PCR, ROUTINE COVID & INFLUENZA A/B & RSV PCR, ROUTINE Microbiology Routine URI, acute Ordered: 07/18/2024 [facility] Work Phone: Comment on above: Ordered: 07/18/2024 End: 05-24-2025 ECG COMPLETE ECG COMPLETE ECG Routine Heart palpitations 1 Occurrences starting 05/24/2024 until 05/24/2025 [facility] Work Phone: Comment on above: 1 Occurrences starti ng 05/24/2024 until 05/24/2025 HOLTER MONITOR 48 HOUR HOLTER MO NITOR 48 HOUR ECG Routine Palpitations 05/26/2024 1:21 PM EDT [facility] Work Phone: OBSTETRIC ULTRASOUND WHI OBSTETR IC ULTRASOUND WHI Anc Imaging Routine 31 weeks gestation of Supervision of high risk in third trimester Ordered: 12/04/2021 [facility] Work Phone: Comment on above: Ordered: 12/04/2021 End: 05-07-2024 OBSTETRIC ULTRASOUND WHI OBSTETRIC ULTRASOUND WHI Anc Imaging Routine Encounter for screening for nuchal translucency History of delivery Every other week for 4 Occurrences starting 03/09/2024 until 05/07/2024 [facility] Comment on above: Every other week for 4 Occurrences starting 03/09/2024 until 05/07/2024 End: 02-12-2025 OBSTETRIC ULTRASOUND WHI OBSTETRIC ULTRASOUND WHI Anc Imaging Routine Supervision of high risk in third trimester Excessive growth affecting management of in third trimester, single or unspecified fetus Once per month for 5 Occurrences starting 08/16/2024 until 02/12/2025 [facility] Work Phone: Comment on above: Once per month for 5 Occurrences starting 08/16/2024 until 02/12/2025 PAP TEST PAP TEST Lab Rou ana maria Screening for malignant neoplasm of cervix 02/04/2024 2:19 PM EDT [facility] Patient Education Kick Counts ED False Labor [facility] Work Phone: Patient referral [facility] Work Phone: ROUTINE, GR OUP B STREP PCR ROUTINE, GROUP B STREP PCR Microbiology Routine Supervision of high risk in third trimester Excessive growth affecting management of in third trimester, single or unspecified fetus H/O delivery, currently History of section Anxiety during 36 weeks gestation of 08/16/2024 10:50 AM EST [facility] End: 05-29-2024 XR ANKLE GENERAL 3V AP/LAT/OBL RIGHT XR ANKLE GENERAL 3V AP/LAT/OBL RIGHT Radiology Routine Injury of lower leg, right, initial encounter 1 Occurrences starting 04/30/2023 until 05/29/2024 [facility] Work Phone: Comment on above: 1 Occurrences starti ng 04/30/2023 until 05/29/2024 [facility] Immunizations Immunization Date Immunization Notes Care Provider [facility] 08-06-2024 respiratory syncytia l virus (RSV) vaccine, bivalent (ABRYSVO) Danyell Alfredo MD Work Phone: [facility] 06-24-2024 tetanus toxoid, redu megan diphtheria toxoid, and acellular pertussis vaccine, adsorbed Yobani Darby MD Work Phone: [facility] 11-13-2021 tetanus toxoid, redu megan diphtheria toxoid, and acellular pertussis vaccine, adsorbed Yobani Darby MD Work Phone: [facility] 06-19-2021 influenza, injectabl e, quadrivalent, contains preservative Kanwal Chow APRN.CNM Work Phone: [facility] 06-19-2021 influenza virus vacc ine, unspecified formulation Alexandru Summers DO Work Phone: [facility] 08-15-2020 measles, mumps and rubella virus vaccine [facility] Work Phone: 07-18-2020 tetanus toxoid, redu megan diphtheria toxoid, and acellular pertussis vaccine, adsorbed [facility] Work Phone: 07-04-2020 tetanus toxoid, redu megan diphtheria toxoid, and acellular pertussis vaccine, adsorbed Kanwal Chow HEALTH INFORMATION SPECIALIST.CNM Work Phone: [facility] 06-05-2020 influenza, seasonal, injectable Kanwal Chow HEALTH INFORMATION SPECIALIST.CNM Work Phone: [facility] 07-12-2019 influenza virus vacc ine, unspecified formulation Kanwal Chow HEALTH INFORMATION SPECIALIST.CNM Work Phone: [facility] 07-12-2019 influenza, seasonal, injectable [facility] Work Phone: 07-05-2018 influenza virus vacc ine, unspecified formulation Kanwal Chow HEALTH INFORMATION SPECIALIST.CNM Work Phone: [facility] 06-17-2018 influenza, seasonal, injectable [facility] Work Phone: 09-04-2017 influenza, seasonal, injectable [facility] Work Phone: 04-14-2015 tuberculin skin test ; purified protein derivative solution, intradermal Gisella Susi HEALTH INFORMATION SPECIALIST.CLINICAL MATERIAL HANDLER Work Phone: [facility] 04-07-2015 tuberculin skin test ; purified protein derivative solution, intradermal Gisella Susi HEALTH INFORMATION SPECIALIST.CLINICAL MATERIAL HANDLER Work Phone: [facility] 05-31-2011 influenza virus vacc ine, live, attenuated, for intranasal use Kanwal Chow HEALTH INFORMATION SPECIALIST.CNM Work Phone: [facility] Work Phone: 06-20-2010 influenza virus vacc ine, live, attenuated, for intranasal use Kanwal Chow HEALTH INFORMATION SPECIALIST.CNM Work Phone: [facility] Work Phone: 12-09-2009 human papilloma viru s vaccine, quadrivalent Kanwal Chow HEALTH INFORMATION SPECIALIST.CNM Work Phone: [facility] Work Phone: 06-21-2009 novel Influenza-H1N1 -09, live virus for nasal administration Kanwal Chow APRN.CNM Work Phone: [facility] 05-22-2009 human papilloma viru s vaccine, quadrivalent Kanwal Chow APRN.CNM Work Phone: [facility] Work Phone: 03-02-2009 human papilloma viru s vaccine, quadrivalent Kanwal Chow APRN.CNM Work Phone: [facility] 03-02-2009 Meningococcal, MCV4, unspecified conjugate formulation(groups A, C, Y and W-135) Kanwal Chow APRN.CNM Work Phone: [facility] 03-02-2009 tetanus toxoid, redu megan diphtheria toxoid, and acellular pertussis vaccine, adsorbed Kanwal Chow APRN.CNM Work Phone: [facility] 03-02-2009 varicella virus vaccine Beverly Chow APRN.CNM Work Phone: [facility] 10-07-2006 hepatitis A vaccine, unspecified formulation Kanwal Chow APRN.CNM Work Phone: [facility] Work Phone: 01-29-2006 hepatitis A vaccine, unspecified formulation Kanwal Chow APRN.CNM Work Phone: [facility] Work Phone: 04-05-2002 diphtheria, tetanus toxoids and acellular pertussis vaccine, unspecified formulation Kanwal Chow APRN.CNM Work Phone: [facility] 04-05-2002 measles, mumps and rubella virus vaccine Kanwal Chow APRN.CNM Work Phone: [facility] Work Phone: 04-05-2002 poliovirus vaccine, inactivated Kanwal Chow APRN.CNM Work Phone: [facility] Work Phone: 03-26-2002 diphtheria, tetanus toxoids and acellular pertussis vaccine Kanwalmorris Chow APRN.CNM Work Phone: [facility] Work Phone: 04-27-1999 diphtheria, tetanus toxoids and acellular pertussis vaccine Kanwalmorris Chow APRN.CNM Work Phone: [facility] Work Phone: 04-27-1999 haemophilus influenz ae type b vaccine, HbOC conjugate Kanwal Chow HEALTH INFORMATION SPECIALIST.CNM Work Phone: [facility] Work Phone: 04-27-1999 hepatitis B vaccine, pediatric or pediatric/adolescent dosage Kanwal Chow HEALTH INFORMATION SPECIALIST.CNM Work Phone: [facility] 04-27-1999 trivalent poliovirus vaccine, live, oral Kanwal Chow APRN.CNM Work Phone: [facility] Work Phone: 12-28-1997 measles, mumps and rubella virus vaccine Kanwalmorris Chow APRN.CNM Work Phone: [facility] Work Phone: 12-28-1997 varicella virus vaccine Beverlymarty caceres Geraldo RILEYN.CNM Work Phone: [facility] Work Phone: 10-25-1997 diphtheria, tetanus toxoids and acellular pertussis vaccine Kanwalmorris Chow APRN.CNM Work Phone: [facility] Work Phone: 07-20-1997 diphtheria, tetanus toxoids and acellular pertussis vaccine Kanwalmorris Chow APRN.CNM Work Phone: [facility] Work Phone: 07-20-1997 haemophilus influenz ae type b vaccine, HbOC conjugate Kanwal Chow APRN.CNM Work Phone: [facility] Work Phone: 07-20-1997 hepatitis B vaccine, pediatric or pediatric/adolescent dosage Kanwal Chow APRN.CNM Work Phone: [facility] Work Phone: 02-23-1997 diphtheria, tetanus toxoids and acellular pertussis vaccine Kanwal Chow HEALTH INFORMATION SPECIALIST.CNM Work Phone: [facility] Work Phone: 02-23-1997 haemophilus influenz ae type b vaccine, HbOC conjugate Kanwal Chow HEALTH INFORMATION SPECIALIST.CNM Work Phone: [facility] Work Phone: 02-23-1997 hepatitis B vaccine, pediatric or pediatric/adolescent dosage Kanwal Chow HEALTH INFORMATION SPECIALIST.CNM Work Phone: [facility] 02-23-1997 poliovirus vaccine, inactivated Kanwal Chow HEALTH INFORMATION SPECIALIST.CNM Work Phone: [facility] Work Phone: 01-24-1997 haemophilus influenz ae type b vaccine, HbOC conjugate Kanwal Chow HEALTH INFORMATION SPECIALIST.CNM Work Phone: [facility] Work Phone: 01-24-1997 hepatitis B vaccine, pediatric or pediatric/adolescent dosage Kanwal Chow HEALTH INFORMATION SPECIALIST.CNM Work Phone: [facility] Work Phone: 01-24-1997 poliovirus vaccine, inactivated Kanwal Chow HEALTH INFORMATION SPECIALIST.CNM Work Phone: [facility] Work Phone: 1996 hepatitis B vaccine, pediatric or pediatric/adolescent dosage Kanwal Chow HEALTH INFORMATION SPECIALIST.CNM Work Phone: [facility] Work Phone: Payers Date Payer Category Payer Private Health Insurance [id number] 2024 Self-pay [id number] 2023 Private Health Insurance [id number] 2023 Private Health Insurance [id number] 2022 Medicaid [id number] 2021 Unknown [employer] BLUE CARD PPO OOS [id number] 2021-Present [phone] [address] [place] [address] PPO [id number] 2021 Unknown [id number] 2020 Medicaid [employer] [place] [id number] 2020-Present [phone] [address] [address] [place] [address] Medicaid [id number] 2020 Medicaid [id number] 2004 Unknown [id number] Unknown [id number] Unknown [id number] Unknown [id number] Unknown [id number] Unknown [id number] Unknown [id number] Unknown [id number] Unknown [id number] Unknown [id number] Unknown [id number] Social History Date Type Detail Facility Start: 03-08-2013 End: 05-16-2022 Tobacco smoking status NHIS Never smoked tobacco [facility] Start: 03-08-2013 End: 05-16-2022 Tobacco use and exposure Smokeless tobacco non-user [facility] Start: 09-18-2021 End: 05-13-2024 Alcohol intake Ex-drinker (finding) [facility] Start: 12-20-2020 History SDOH Alcohol Frequency 2 [facility] Start: 12-20-2020 History SDOH Social Connections Phone 5 [facility] Start: 12-20-2020 History SDOH Social Connections Get Together 4 [facility] Start: 12-20-2020 History SDOH Social Connections Mosque 1 [facility] Start: 12-20-2020 History SDOH Social Connections Meetings 98 [facility] Start: 12-20-2020 History SDOH Social Connections Living 8 [facility] Start: 12-20-2020 History SDOH Physical Activity DPW 3 [facility] Start: 02-21-2020 Education 15 [facility] Start: 05-12-2021 [facility] Start: 1995 Sex Assigned At Female [facility] Start: 10-20-2021 End: 03-01-2022 Exposure to SARS-CoV-2 (event) Not sure [facility] Start: 01-04-2022 Tobacco smoking status NHIS Unknown if ever smoked [facility] Work Phone: Start: 08-14-2020 None [facility] Work Phone: Start: 12-20-2020 End: 07-12-2024 History of Social function [facility] Start: 12-20-2020 End: 07-12-2024 Social connection and isolation panel [facility] Do you belong to any clubs or organizations such as mandaeism groups, unions, fraternal or athletic groups, or school groups? No [facility] How often do you att end meetings of the clubs or organizations you belong to? Patient refused [facility] Are you now , , , , never or living with a partner? Living with partner [facility] How often to you hav e a drink containing alcohol? Monthly or less [facility] How many standard dr inks containing alcohol do you have on a typical day? 3 or 4 [facility] How often do you hav e 6 or more drinks on 1 occasion? Less than monthly [facility] Do you feel stress - tense, restless, nervous, or anxious, or unable to sleep at night because your mind is troubled all the time - these days [OSQ] To some extent [facility] (I/We) worried wheadrien er (my/our) food would run out before (I/we) got money to buy more. Never true [facility] The thought of elisha downing myself has occurred to me Never [facility] Start: 10-23-2021 Gender identity Identifies as female gender (finding) [facility] Start: 10-23-2021 Sexual orientation Heterosexual (finding) [facility] Goals Date Patient Goal Desired Activity /State Personal health goal Personal health goal Functional Status Date Assessment Result Facility 03-07-2015 Are you deaf, or do you have serious difficulty hearing No 03/07/2015 10:20 AM Giana Burns Ma No [facility] 03-07-2015 Are you blind, or do you have serious difficulty seeing, even when wearing glasses No 03/07/2015 10:20 AM Giana Burns Ma No [facility] 03-07-2015 Do you have serious difficulty walking or climbing stairs No 03/07/2015 10:20 AM Giana Burns Ma No [facility] 03-07-2015 Do you have difficul ty dressing or bathing No 03/07/2015 10:20 AM Giana Burns Ma No [facility] 03-07-2015 Because of a physica l, mental, or emotional condition, do you have difficulty doing errands alone such as visiting a physician's office or shopping No 03/07/2015 10:20 AM Giana Burns Ma No [facility] Mental Status Date Assessment Result Facility 01-05-2022 Cognitive function Level Of Cons ciousness Awake;Alert;Appropriate [facility] Work Phone: 03-07-2015 Because of a physica l, mental, or emotional condition, do you have serious difficulty concentrating, remembering, or making decisions No 03/07/2015 10:20 AM EDT Giana Medrano Ma No [facility] Clinical Notes 07-04-2020 to 12-21-2024 Surjit Aguirre MD - 12/21/2024 4:40 PM EDTPatient InstructionsLauryn Goetz APRN.EMRE - 11/26/2024 1:51 PM FORDTDanyell Jurado MD - 09/29/2024 3:55 PM ESTPatient Instructions Note Date & Type Note Facility 12-21-2024 History of Present illness Narrative Chief Complaint Patient presents with: Follow Up: Medication HPI Kimberly Jeong is a 29 year old female who presents here today for medication discussion. 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 Pt has recently been seeing [facility] [address] for Psychiatry and they are prescribing her Cymbalta and Trazodone 100 mg daily. Due to not being able to afford the copay, asking if Primary Care can take over prescribing medication. Pt has been on several medications in the past due to anxiety, depression, and sleep issues. Pt reports she's been stable with use of Cymbalta 20 mg 2 tabs po daily. Sleep has been stable with use of Trazodone 100 mg once daily at bedtime. She's concerned about weight gain with medication, and wondering if there's other options. Weight is still trending down at this time. Pt has been on several medications in the past such as Wellbutrin, Zoloft, Celexa, Abilify, Vraylar, Vistaril, and Amitriptyline. Has seen a counselor at [facility] [address] also. HM - Declines Covid vaccine. Depression/Anxiety screening completed, negative. Past medical history, appointments, medications, allergies reviewed. Previous Medical History PAST MEDICAL HISTORY Diagnosis Date Anemia complicating , second trimester (HCC) 07/04/2020 Contracted pelvis during ([facility]) depression anxiety fracture 11 years old right wrist-fell out of bunk bed H/O delivery, currently ([facility]) Hyperemesis gravidarum ([facility]) ER: 01/29/2024 Injury of right ankle 09/10/2023 Myocarditis (HCC) age 18 months [address] Lay--recheck age 18 yrs PMH - PAST MEDICAL HISTORY OF 06/2007 Right wrist fracture PMH - PAST MEDICAL HISTORY OF normal color vision depression Recurrent major depressive disorder, in partial remission 11/03/2020 Sprain of right ankle 09/10/2023 Sprain of unspecified ligament of right ankle, initial encounter 09/10/2023 Unspecified injury of right ankle, subsequent encounter 09/10/2023 Previous Surgical History PAST SURGICAL HISTORY Procedure Laterality Date DELIVERY ONLY 01/05/2022 [facility] DELIVERY ONLY 08/18/2024 PAST SURGICAL HISTORY OF wisdom teeth Family [...] Prior to Visit Medication Sig DULoxetine (CYMBALTA) 30 mg capsule Take 30 mg by mouth once daily. multivitamin (CALIXTO ) 65 mg iron- 1 mg tab once daily. famotidine (PEPCID) 20 mg tablet two times a day. (Patient not taking: Reported on 09/08/2024) promethazine HCl (PHENERGAN ORAL) Take 25 mg by mouth every 6 hours. (Patient not taking: Reported on 08/25/2024) ondansetron (ZOFRAN) 4 mg tablet Take 1 tablet by mouth every 8 hours as needed for nausea/vomiting. (Patient not taking: Reported on 08/25/2024) traZODone (DESYREL) 50 mg tablet No current facility-administered medications on file prior to visit. Social History Social History Tobacco Use Smoking status: Never Smokeless tobacco: Never Vaping Use Vaping status: Never Used Substance Use Topics Alcohol use: Not Currently Drug use: No EXAM: BP 106/62 (BP Site: Left Arm, BP Position: Sitting, BP Cuff Size: Regular Adult) Pulse 60 Resp 16 Wt 70.4 kg (155 lb 3.3 oz) LMP 11/19/2024 (Exact Date) BMI 28.39 kg/m General Appearance: Well appearing, alert, in no acute distress, well-hydrated, well nourished.. Lungs: Lungs clear to auscultation. No wheezing, rhonchi, rales.. Heart: RRR without murmur, gallop, or rubs. No ectopy. Health Maintenance List Depression Screening Never done Anxiety Screening Never done Covid-19 Vaccine( season) Never done Influenza Vaccine(Season Ended) due on 04/18/2025 Cervical Cancer Screening due on 02/03/2027 DTaP,Tdap,Td Vaccine(11 - Td or Tdap) due on 06/24/2034 Hepatitis B Vaccine Completed Hepatitis C Screening Completed HIV Screening Completed Data reviewed none ASSESSMENT/PLAN: 1. Anxiety with depression - ICD9: 300.4, ICD10: F41.8 (primary diagnosis) Continue current medications. Monitor for weight gain - DULOXETINE 20 MG CAPSULE,DELAYED RELEASE - TRAZODONE 100 MG TABLET 2. Screening for depression - ICD9: V79.0, ICD10: Z13.31 - DEPRESSION SCREENING 3. Encounter for screening examination for other mental health and behavioral disorders - ICD9: V79.8, ICD10: Z13.39 - ANXIETY SCREENING 4. Depression, unspecified depression type - ICD9: 311, ICD10: F32.A - DULOXETINE 20 MG CAPSULE,DELAYED RELEASE 5. Chronic insomnia - ICD9: 780.52, ICD10: F51.04 - TRAZODONE 100 MG TABLET Follow up in 3 months Medical Decision Making: Problems: Moderate: 2+ stable chronic illnesses Risk: Moderate: Drug management Medical Decision Making Level: 4 - Moderate Surjit Aguirre MD documented in this encounter [facility] 12-21-2024 Note HNO ID: [id number] Author: SURJIT AGUIRRE MD Service: ? Author Type: Physician Type: Progress Notes Filed: 12/21/2024 17:25 Note Text: Chief Complaint Patient presents with: Follow Up: Medication HPI Kimberly Jeong is a 29 year old female who presents here today for medication discussion. 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 Pt has recently been seeing [facility] [address] for Psychiatry and they are prescribing her Cymbalta and Trazodone 100 mg daily. Due to not being able to afford the copay, asking if Primary Care can take over prescribing medication. Pt has been on several medications in the past due to anxiety, depression, and sleep issues. Pt reports she's been stable with use of Cymbalta 20 mg 2 tabs po daily. Sleep has been stable with use of Trazodone 100 mg once daily at bedtime. She's concerned about weight gain with medication, and wondering if there's other options. Weight is still trending down at this time. Pt has been on several medications in the past such as Wellbutrin, Zoloft, Celexa, Abilify, Vraylar, Vistaril, and Amitriptyline. Has seen a counselor at [facility] [address] also. HM - Declines Covid vaccine. Depression/Anxiety screening completed, negative. Past medical history, appointments, medications, allergies reviewed. Previous Medical History PAST MEDICAL HISTORY Diagnosis Date Anemia complicating , second trimester ([facility]) 07/04/2020 Contracted pelvis during ([facility]) depression anxiety fracture 11 years old right wrist-fell out of bunk bed H/O delivery, currently ([facility]) Hyperemesis gravidarum ([facility]) ER: 01/29/2024 Injury of right ankle 09/10/2023 Myocarditis ([facility]) age 18 months [address] Lay--recheck age 18 yrs PMH - PAST MEDICAL HISTORY OF 06/2007 Right wrist fracture PMH - PAST MEDICAL HISTORY OF normal color vision depression Recurrent major depressive disorder, in partial remission 11/03/2020 Sprain of right ankle 09/10/2023 Sprain of unspecified ligament of right ankle, initial encounter 09/10/2023 Unspecified injury of right ankle, subsequent encounter 09/10/2023 Previous Surgical History PAST SURGICAL HISTORY Procedure Laterality Date DELIVERY ONLY 01/05/2022 [facility] DELIVERY ONLY 08/18/2024 PAST SURGICAL HISTORY OF wisdom teeth Family [...] Prior to Visit Medication Sig DULoxetine (CYMBALTA) 30 mg capsule Take 30 mg by mouth once daily. multivitamin (CALIXTO ) 65 mg iron- 1 mg tab once daily. famotidine (PEPCID) 20 mg tablet two times a day. (Patient not taking: Reported on 09/08/2024) promethazine HCl (PHENERGAN ORAL) Take 25 mg by mouth every 6 hours. (Patient not taking: Reported on 08/25/2024) ondansetron (ZOFRAN) 4 mg tablet Take 1 tablet by mouth every 8 hours as needed for nausea/vomiting. (Patient not taking: Reported on 08/25/2024) traZODone (DESYREL) 50 mg tablet No current facility-administered medications on file prior to visit. Social History Social History Tobacco Use Smoking status: Never Smokeless tobacco: Never Vaping Use Vaping status: Never Used Substance Use Topics Alcohol use: Not Currently Drug use: No EXAM: BP 106/62 (BP Site: Left Arm, BP Position: Sitting, BP Cuff Size: Regular Adult) Pulse 60 Resp 16 Wt 70.4 kg (155 lb 3.3 oz) LMP 11/19/2024 (Exact Date) BMI 28.39 kg/m? General Appearance: Well appearing, alert, in no acute distress, well-hydrated, well nourished.. Lungs: Lungs clear to auscultation. No wheezing, rhonchi, rales.. Heart: RRR without murmur, gallop, or rubs. No ectopy. Health Maintenance List Depression Screening Never done Anxiety Screening Never done Covid-19 Vaccine( season) Never done Influenza Vaccine(Season Ended) due on 04/18/2025 Cervical Cancer Screening due on 02/03/2027 DTaP,Tdap,Td Vaccine(11 - Td or Tdap) due on 06/24/2034 Hepatitis B Vaccine Completed Hepatitis C Screening Completed HIV Screening Completed Data reviewed none ASSESSMENT/PLAN: 1. Anxiety with depression - ICD9: 300.4, ICD10: F41.8 (primary diagnosis) Continue current medications. Monitor for weight gain - DULOXETINE 20 MG CAP (more content not included)... [facility] 11-26-2024 Instructions Lauryn Goetz APRN.CNP - 11/26/2024 2:20 PM EDT Minimizing irritation of the vulva (area around the vagina) Wear white cotton underwear. Avoid synthetic fabrics and tight clothing. Sleep wearing shorts or pajama bottoms without underwear. Shower as soon as possible after exercise. Avoid clothing detergents and soaps with perfumes or dyes. Use warm (not hot) water to wash the vulva and if you use soap use a product designed for sensitive skin (like Dove or Cetaphil). Do not douche or use creams/powders in the vulvar area unless instructed by your physician. If you must douche, use only plain warm water. Make sure the vulva is dry before dressing by patting dry with a towel. Avoid vigorous rubbing with the towel. You may want to use the blow dryer (on the cool setting only!) on the vulva. The most important way to let your body heal is by avoiding scratching. Many patients find it difficult to avoid scratching at night when they are most aware of the itchiness. You can try taking Benadryl just before bedtime. Some women find it helpful to wear cotton gloves to bed to avoid scratching at night. Taking a women's health probiotic would definitely help . [employer] Women can be purchased at a pharmacy or on [employer] (around $20/month, needs refrigerated and take it daily)or [employer] ($35/month, no refrigeration and take 15 consecutive days per month) can be ordered at [employer] and use code [id number]. You can also RepHresh vaginally and it can be purchased with the feminine products in many stores. You need to separate any antibiotic and probiotic by 1-2 hours. documented in this encounter [facility] 11-26-2024 Note HNO ID: [id number] Author: LAURYN GOETZ APRN.CLINICAL MATERIAL HANDLER Service: ? Author Type: Nurse Practitioner Type: Progress Notes Filed: 11/26/2024 17:21 Note Text: Results Engineer offered: Patient declines. Kimberly Jeong is a 29 year old female who presents for problem visit vaginal irritation for 2 week(s). HPI: Vaginal irritation with runny white discharge and fishy odor for past 2 weeks. Similar to past BV. Tubal sterilization. OB History Gravida3 Para3 Term1 Preterm2 AB0 Living3 SAB0 IAB0 Ectopic0 Multiple0 Live Births3 Vp Director Of Creative Strategy History LMP: 11/19/2024 (Exact Date), Having periods Age at Menarche: 13 Age at First : 23 Age at Menopause: Vp Director Of Creative Strategy History Comments: Pumped: 2 months Sexual Activity: Yes; Male Contraception: Tubal Ligation PAST MEDICAL HISTORY Diagnosis Date Anemia complicating [...] Procedure Laterality Date DELIVERY ONLY 01/05/2022 LTCS DELIVERY ONLY 08/18/2024 PAST SURGICAL HISTORY OF wisdom teeth FAMILY [...] use: No Current Outpatient Medications Medication Sig DULoxetine (CYMBALTA) 30 mg capsule Take 30 mg by mouth once daily. multivitamin (CALIXTO ) 65 mg iron- 1 mg tab once daily. famotidine (PEPCID) 20 mg tablet two times a day. (Patient not taking: Reported on 09/08/2024) promethazine HCl (PHENERGAN ORAL) Take 25 mg by mouth every 6 hours. (Patient not taking: Reported on 08/25/2024) ondansetron (ZOFRAN) 4 mg tablet Take 1 tablet by mouth every 8 hours as needed for nausea/vomiting. (Patient not taking: Reported on 08/25/2024) traZODone (DESYREL) 50 mg tablet No current facility-administered medications for this visit. Allergies As of Date: 11/26/2024 Allergen Noted Reaction POLLEN 12/05/2011 Other: See Comments Fully Assessed 11/26/2024 REVIEW OF SYSTEMS Abdomen: No bloating, early satiety, indigestion, or increased flatulence. No abdominal pain, nausea, vomiting, diarrhea, or constipation. Bladder: No dysuria, gross hematuria, urinary frequency, urinary urgency, or incontinence. Allergies and current medication updated:Yes SENSITIVE EXAM: The sensitive examination was discussed with the Patient or Patient's Authorized Reduction Furnace Operator Helper. As applicable, any other physician, advance practice provider, medical student, or other health professional student that will be observing or involved in the sensitive examination for educational or training purposes was discussed with the Patient or Authorized Reduction Furnace Operator Helper. The Patient or Authorized Reduction Furnace Operator Helper has agreed to proceed with the sensitive examination. (Sensitive examination includes inspection and/or palpation of the breasts, pelvis, prostate and anorectal regions). EXAM: BP 110/66 Wt 157 lb (71.2kg) LMP 11/19/2024 GENERAL: pleasant, female in no apparent distress CHEST: Normal inspiratory effort ABDOMEN: soft, non-tender, and no masses PELVIC: external genitalia normal, normal Bartholin's glands, urethra, [place]'s glands, no vulvar lesions, no cervical lesions, good vaginal support, thin white discharge present, normal appearing perineal body and perianal region BIMANUAL: uterus normal size, shape and consistency, no adnexal masses, and non-tender NEURO: alert and oriented x3,exam grossly non-focal ASSESSMENT AND PLAN: Assessment AND Plan Vaginal discharge Orders: MATHIEU/TRICHOMONAS NAAT BACTERIAL VAGINOSIS NAAT Vaginal irritation Orders: MATHIEU/TRICHOMONAS NAAT (more content not included)... [facility] 11-26-2024 History of Present illness Narrative Results Engineer offered: Patient declines. Kimberly Jeong is a 29 year old female who presents for problem visit vaginal irritation for 2 week(s). HPI: Vaginal irritation with runny white discharge and fishy odor for past 2 weeks. Similar to past BV. Tubal sterilization. OB History Gravida3 Para3 Term1 Preterm2 AB0 Living3 SAB0 IAB0 Ectopic0 Multiple0 Live Births3 Vp Director Of Creative Strategy History LMP: 11/19/2024 (Exact Date), Having periods Age at Menarche: 13 Age at First : 23 Age at Menopause: Vp Director Of Creative Strategy History Comments: Pumped: 2 months Sexual Activity: Yes; Male Contraception: Tubal Ligation PAST MEDICAL HISTORY Diagnosis Date Anemia complicating , second trimester 07/04/2020 Contracted pelvis during depression anxiety fracture 11 years old right wrist-fell out of bunk bed H/O delivery, currently Hyperemesis gravidarum ER: 01/29/2024 Injury of right ankle 09/10/2023 Myocarditis ([facility]) age 18 months 2006 cleared for Sports [...] Procedure Laterality Date DELIVERY ONLY 01/05/2022 LTCS DELIVERY ONLY 08/18/2024 PAST SURGICAL HISTORY OF wisdom teeth FAMILY [...] use: No Current Outpatient Medications Medication Sig DULoxetine (CYMBALTA) 30 mg capsule Take 30 mg by mouth once daily. multivitamin (CALIXTO ) 65 mg iron- 1 mg tab once daily. famotidine (PEPCID) 20 mg tablet two times a day. (Patient not taking: Reported on 09/08/2024) promethazine HCl (PHENERGAN ORAL) Take 25 mg by mouth every 6 hours. (Patient not taking: Reported on 08/25/2024) ondansetron (ZOFRAN) 4 mg tablet Take 1 tablet by mouth every 8 hours as needed for nausea/vomiting. (Patient not taking: Reported on 08/25/2024) traZODone (DESYREL) 50 mg tablet No current facility-administered medications for this visit. Allergies As of Date: 11/26/2024 Allergen Noted Reaction POLLEN 12/05/2011 Other: See Comments Fully Assessed 11/26/2024 REVIEW OF SYSTEMS Abdomen: No bloating, early satiety, indigestion, or increased flatulence. No abdominal pain, nausea, vomiting, diarrhea, or constipation. Bladder: No dysuria, gross hematuria, urinary frequency, urinary urgency, or incontinence. Allergies and current medication updated:Yes SENSITIVE EXAM: The sensitive examination was discussed with the Patient or Patient's Authorized Reduction Furnace Operator Helper. As applicable, any other physician, advance practice provider, medical student, or other health professional student that will be observing or involved in the sensitive examination for educational or training purposes was discussed with the Patient or Authorized Reduction Furnace Operator Helper. The Patient or Authorized Reduction Furnace Operator Helper has agreed to proceed with the sensitive examination. (Sensitive examination includes inspection and/or palpation of the breasts, pelvis, prostate and anorectal regions). EXAM: BP 110/66 Wt 157 lb (71.2kg) LMP 11/19/2024 GENERAL: pleasant, female in no apparent distress CHEST: Normal inspiratory effort ABDOMEN: soft, non-tender, and no masses PELVIC: external genitalia normal, normal Bartholin's glands, urethra, [place]'s glands, no vulvar lesions, no cervical lesions, good vaginal support, thin white discharge present, normal appearing perineal body and perianal region BIMANUAL: uterus normal size, shape and consistency, no adnexal masses, and non-tender NEURO: alert and oriented x3,exam grossly non-focal ASSESSMENT AND PLAN: Assessment & Plan Vaginal discharge Orders: MATHIEU/TRICHOMONAS NAAT BACTERIAL VAGINOSIS NAAT Vaginal irritation Orders: MATHIEU/TRICHOMONAS NAAT BACTERIAL VAGINOSIS NAAT Vulvar hygiene instructions Women's health probiotic information Will notify of results. Follow- up as needed. Lauryn Goetz APRN.CNP Medical Decision Making: Problems: Low: Acute, uncomplicated illness or injury Data: Unique test(s) ordered: 3+ Medical Decision Making Level: 3 - Low documented in this encounter [facility] 09-29-2024 Note HNO ID: [id number] Author: DANYELL JURADO MD Service: ? Author Type: Physician Type: Progress Notes Filed: 09/29/2024 16:22 Note Text: VISIT Kimberly Jeong is a 28 year old year old here for visit. Delivery Summary: Cs with tubal ROS/ Recovery: Feeding: Breast and bottle feeding problems: None Menses since delivery: none Menstrual pattern prior to : Regular periods [place] since delivery: Resumed Depression: denies symptoms of depression. OB Depression and Anxiety Screening- This Encounter (since 09/28/2024) Over the past 2 weeks have you [...] Bowel symptoms: No nausea, vomiting, or diarrhea, No heartburn or reflux symptoms, and Negative for abdominal discomfort, blood in stools or black stools Abdomen: She reports no incisional redness, tenderness, erythema Bladder symptoms: No dysuria, gross hematuria, urinary frequency, urinary urgency, or incontinence Other issues: None Last Pap: 2023 normal HPV: N/A PAST MEDICAL HISTORY Diagnosis Date Anemia complicating , second trimester 07/04/2020 Contracted pelvis during depression anxiety fracture 11 years old right wrist-fell out of bunk bed H/O delivery, currently Hyperemesis gravidarum ER: 01/29/2024 Injury of right ankle 09/10/2023 Myocarditis ([facility]) age 18 months 2006 cleared [address] Lay--recheck age 18 yrs PMH - PAST MEDICAL HISTORY OF 06/2007 Right wrist fracture PMH - PAST MEDICAL HISTORY OF normal color vision depression Recurrent major depressive disorder, in partial remission ([facility]) 11/03/2020 Sprain of right ankle 09/10/2023 Sprain of unspecified ligament of right ankle, initial encounter 09/10/2023 Unspecified injury of right ankle, subsequent encounter 09/10/2023 PAST SURGICAL HISTORY Procedure Laterality Date DELIVERY ONLY 01/05/2022 LTCS DELIVERY ONLY 08/18/2024 PAST SURGICAL HISTORY OF wisdom teeth FAMILY [...] Not Currently Drug use: No PHYSICAL EXAMINATION: SENSITIVE EXAM: The sensitive examination was discussed with the Patient or Patient's Authorized Reduction Furnace Operator Helper. As applicable, any other physician, advance practice provider, medical student, or other health professional student that will be observing or involved in the sensitive examination for educational or training purposes was discussed with the Patient or Authorized Reduction Furnace Operator Helper. The Patient or Authorized Reduction Furnace Operator Helper has agreed to proceed with the sensitive examination. (Sensitive examination includes inspection and/or palpation of the breasts, pelvis, prostate and anorectal regions). BP 98/60 Ht 5' 2 (1.58m) Wt 154 lb (69.9kg) LMP 12/07/2023 BMI 28.16 kg/(m2). GENERAL: pleasant, female in no apparent distress HEENT: Normocephalic, atraumatic, mucus membranes moist, and no lesions NECK: Supple, full range of motion, no adenopathy, and thyroid normal DERMATOLOGY: Normal, without lesions, non-icteric, and non-hirsute BREAST: soft, non-tender, symmetric, no dominant mass, normal nipple-areolar complex, no lymphadenopathy, and no nipple discharge CHEST: Normal inspiratory effort ABDOMEN: soft, non-tender, and no masses. INCISION: No incisional redness, swelling, or drainage PELVIC: external genitalia normal, normal Bartholin's glands, urethra, [place]'s glands, no vulvar lesions, no cervical lesions, good vaginal support, physiologic discharge present, normal appearing perineal body and perianal region BIMANUAL: uterus normal size, shape and consistency, no adnexal masses, and non-tender NEURO: alert and oriented x3,exam grossly non-focal EXTREMITIES: normal ASSESSMENT AND PLAN: 28 year old status post CS with normal course. Contraception plan: tubal ligation Follow up (more content not included)... [facility] 09-29-2024 History of Present illness Narrative VISIT Kimberly Jeong is a 28 year old year old here for visit. Delivery Summary: Cs with tubal ROS/ Recovery: Feeding: Breast and bottle feeding problems: None Menses since delivery: none Menstrual pattern prior to : Regular periods [place] since delivery: Resumed Depression: denies symptoms of depression. OB Depression and Anxiety Screening- This Encounter (since 09/28/2024) Over the past 2 weeks have you [...] Bowel symptoms: No nausea, vomiting, or diarrhea, No heartburn or reflux symptoms, and Negative for abdominal discomfort, blood in stools or black stools Abdomen: She reports no incisional redness, tenderness, erythema Bladder symptoms: No dysuria, gross hematuria, urinary frequency, urinary urgency, or incontinence Other issues: None Last Pap: 2023 normal HPV: N/A PAST MEDICAL HISTORY Diagnosis Date Anemia complicating [...] Recurrent major depressive disorder, in partial remission ([facility]) 11/03/2020 Sprain of right ankle 09/10/2023 Sprain of unspecified ligament of right ankle, initial encounter 09/10/2023 Unspecified injury of right ankle, subsequent encounter 09/10/2023 PAST SURGICAL HISTORY Procedure Laterality Date DELIVERY ONLY 01/05/2022 LTCS DELIVERY ONLY 08/18/2024 PAST SURGICAL HISTORY OF wisdom teeth FAMILY [...] Not Currently Drug use: No PHYSICAL EXAMINATION: SENSITIVE EXAM: The sensitive examination was discussed with the Patient or Patient's Authorized Reduction Furnace Operator Helper. As applicable, any other physician, advance practice provider, medical student, or other health professional student that will be observing or involved in the sensitive examination for educational or training purposes was discussed with the Patient or Authorized Reduction Furnace Operator Helper. The Patient or Authorized Reduction Furnace Operator Helper has agreed to proceed with the sensitive examination. (Sensitive examination includes inspection and/or palpation of the breasts, pelvis, prostate and anorectal regions). BP 98/60 Ht 5' 2 (1.58m) Wt 154 lb (69.9kg) LMP 12/07/2023 BMI 28.16 kg/(m^2). GENERAL: pleasant, female in no apparent distress HEENT: Normocephalic, atraumatic, mucus membranes moist, and no lesions NECK: Supple, full range of motion, no adenopathy, and thyroid normal DERMATOLOGY: Normal, without lesions, non-icteric, and non-hirsute BREAST: soft, non-tender, symmetric, no dominant mass, normal nipple-areolar complex, no lymphadenopathy, and no nipple discharge CHEST: Normal inspiratory effort ABDOMEN: soft, non-tender, and no masses. INCISION: No incisional redness, swelling, or drainage PELVIC: external genitalia normal, normal Bartholin's glands, urethra, [place]'s glands, no vulvar lesions, no cervical lesions, good vaginal support, physiologic discharge present, normal appearing perineal body and perianal region BIMANUAL: uterus normal size, shape and consistency, no adnexal masses, and non-tender NEURO: alert and oriented x3,exam grossly non-focal EXTREMITIES: normal ASSESSMENT AND PLAN: 28 year old status post CS with normal course. Contraception plan: tubal ligation Follow up: RTC for annual exams and PRN Danyell Mckeon MD documented in this encounter [facility] 09-08-2024 Note HNO ID: [id number] Author: ROSARIO GARCIA APRN.CNM Service: ? Author Type: Journeyman Apprentice Electricians Type: Progress Notes Filed: 09/08/2024 16:52 Note Text: Kimberly Jeong is a 28 year old female who presents for problem visit of vaginal burning, itching and increased discharge for the past 3 days. She describes discharge as yellow/brown and thick. Unsure if has UTI. She is 3 weeks post from section. Denies any current vaginal bleeding or fevers. OB History T1 L3 SAB0 IAB0 Ectopic0 Multiple0 Live Births3 Vp Director Of Creative Strategy History LMP: 12/07/2023 (Exact Date), Recent Age at Menarche: 13 Age at First : 23 Age at Menopause: Vp Director Of Creative Strategy History Comments: Pumped: 2 months Sexual Activity: Yes; Male Contraception: Condom PAST MEDICAL HISTORY Diagnosis Date Anemia complicating , second trimester 07/04/2020 Contracted pelvis during depression anxiety fracture 11 years old right wrist-fell out of bunk bed H/O delivery, currently Hyperemesis gravidarum ER: 01/29/2024 Injury of right ankle 09/10/2023 Myocarditis ([facility]) age 18 months 2006 cleared [address]. Lay--recheck age 18 yrs PMH - PAST MEDICAL HISTORY OF 06/2007 Right wrist fracture PMH - PAST MEDICAL HISTORY OF normal color vision depression Recurrent major depressive disorder, in partial remission ([facility]) 11/03/2020 Sprain of right ankle 09/10/2023 Sprain of unspecified ligament of right ankle, initial encounter 09/10/2023 Unspecified injury of right ankle, subsequent encounter 09/10/2023 PAST SURGICAL HISTORY Procedure Laterality Date DELIVERY ONLY 01/05/2022 LTCS DELIVERY ONLY 08/18/2024 PAST SURGICAL HISTORY OF wisdom teeth FAMILY [...] use: No Current Outpatient Medications Medication Sig DULoxetine (CYMBALTA) 30 mg capsule Take 30 mg by mouth once daily. multivitamin (CALIXTO ) 65 mg iron- 1 mg tab once daily. traZODone (DESYREL) 50 mg tablet famotidine (PEPCID) 20 mg tablet two times a day. (Patient not taking: Reported on 09/08/2024) promethazine HCl (PHENERGAN ORAL) Take 25 mg by mouth every 6 hours. (Patient not taking: Reported on 08/25/2024) ondansetron (ZOFRAN) 4 mg tablet Take 1 tablet by mouth every 8 hours as needed for nausea/vomiting. (Patient not taking: Reported on 08/25/2024) No current facility-administered medications for this visit. Allergies As of Date: 09/08/2024 Allergen Noted Reaction POLLEN 12/05/2011 Other: See Comments Fully Assessed 09/08/2024 REVIEW OF SYSTEMS Abdomen: No bloating, early satiety, indigestion, or increased flatulence. No abdominal pain, nausea, vomiting, diarrhea, or constipation. Bladder: No gross hematuria, urinary frequency, urinary urgency, or incontinence. Positive for dysuria/burning Breast: No breast lumps, nipple d/c, overlying skin changes, redness or skin retraction. Expanded ROS: N/A Allergies and current medication updated:Yes SENSITIVE EXAM: The sensitive examination was discussed with the Patient or Patient's Authorized Reduction Furnace Operator Helper. As applicable, any other physician, advance practice provider, medical student, or other health professional student that will be observing or involved in the sensitive examination for educational or training purposes was discussed with the Patient or Authorized Reduction Furnace Operator Helper. The Patient or Authorized Reduction Furnace Operator Helper has agreed to proceed with the sensitive examination. (Sensitive examination includes inspection and/or palpation of the breasts, pelvis, prostate and anorectal regions). EXAM: BP 100/62 Wt 159 lb (72.1kg) LMP 12/07/2023 GENERAL: pleasant, female in no apparent distress HEENT: Normocephalic, atraumatic, mucus membranes moist, and no lesions NECK: Supple and full range of motion DERMATOLOGY: Normal and without lesions BREAST: deferred CHEST: Normal inspiratory effort ABDOMEN: soft and non-tender PELVIC: external genitalia normal, normal Bartholin's glands, urethra, [place]'s glands, no vulvar lesions, no cervical lesions, good vaginal support, physiologic discharge present, normal appearing perineal body and perianal region BIMANUAL: uterus normal si (more content not included)... [facility] 09-08-2024 History of Present illness Narrative Kimberly Jeong is a 28 year old female who presents for problem visit of vaginal burning, itching and increased discharge for the past 3 days. She describes discharge as yellow/brown and thick. Unsure if has UTI. She is 3 weeks post from section. Denies any current vaginal bleeding or fevers. OB History T1 L3 SAB0 IAB0 Ectopic0 Multiple0 Live Births3 Vp Director Of Creative Strategy History LMP: 12/07/2023 (Exact Date), Recent Age at Menarche: 13 Age at First : 23 Age at Menopause: Vp Director Of Creative Strategy History Comments: Pumped: 2 months Sexual Activity: Yes; Male Contraception: Condom PAST MEDICAL HISTORY Diagnosis Date Anemia complicating , second trimester 07/04/2020 Contracted pelvis during depression anxiety fracture 11 years old right wrist-fell out of bunk bed H/O delivery, currently Hyperemesis gravidarum ER: 01/29/2024 Injury of right ankle 09/10/2023 Myocarditis ([facility]) age 18 months 2006 cleared for Sports [address] Dr. Lay--recheck age 18 yrs PMH - PAST MEDICAL HISTORY OF 06/2007 Right wrist fracture PMH - PAST MEDICAL HISTORY OF normal color vision depression Recurrent major depressive disorder, in partial remission ([facility]) 11/03/2020 Sprain of right ankle 09/10/2023 Sprain of unspecified ligament of right ankle, initial encounter 09/10/2023 Unspecified injury of right ankle, subsequent encounter 09/10/2023 PAST SURGICAL HISTORY Procedure Laterality Date DELIVERY ONLY 01/05/2022 LTCS DELIVERY ONLY 08/18/2024 PAST SURGICAL HISTORY OF wisdom teeth FAMILY [...] use: No Current Outpatient Medications Medication Sig DULoxetine (CYMBALTA) 30 mg capsule Take 30 mg by mouth once daily. multivitamin (CALIXTO ) 65 mg iron- 1 mg tab once daily. traZODone (DESYREL) 50 mg tablet famotidine (PEPCID) 20 mg tablet two times a day. (Patient not taking: Reported on 09/08/2024) promethazine HCl (PHENERGAN ORAL) Take 25 mg by mouth every 6 hours. (Patient not taking: Reported on 08/25/2024) ondansetron (ZOFRAN) 4 mg tablet Take 1 tablet by mouth every 8 hours as needed for nausea/vomiting. (Patient not taking: Reported on 08/25/2024) No current facility-administered medications for this visit. Allergies As of Date: 09/08/2024 Allergen Noted Reaction POLLEN 12/05/2011 Other: See Comments Fully Assessed 09/08/2024 REVIEW OF SYSTEMS Abdomen: No bloating, early satiety, indigestion, or increased flatulence. No abdominal pain, nausea, vomiting, diarrhea, or constipation. Bladder: No gross hematuria, urinary frequency, urinary urgency, or incontinence. Positive for dysuria/burning Breast: No breast lumps, nipple d/c, overlying skin changes, redness or skin retraction. Expanded ROS: N/A Allergies and current medication updated:Yes SENSITIVE EXAM: The sensitive examination was discussed with the Patient or Patient's Authorized Reduction Furnace Operator Helper. As applicable, any other physician, advance practice provider, medical student, or other health professional student that will be observing or involved in the sensitive examination for educational or training purposes was discussed with the Patient or Authorized Reduction Furnace Operator Helper. The Patient or Authorized Reduction Furnace Operator Helper has agreed to proceed with the sensitive examination. (Sensitive examination includes inspection and/or palpation of the breasts, pelvis, prostate and anorectal regions). EXAM: BP 100/62 Wt 159 lb (72.1kg) LMP 12/07/2023 GENERAL: pleasant, female in no apparent distress HEENT: Normocephalic, atraumatic, mucus membranes moist, and no lesions NECK: Supple and full range of motion DERMATOLOGY: Normal and without lesions BREAST: deferred CHEST: Normal inspiratory effort ABDOMEN: soft and non-tender PELVIC: external genitalia normal, normal Bartholin's glands, urethra, [place]'s glands, no vulvar lesions, no cervical lesions, good vaginal support, physiologic discharge present, normal appearing perineal body and perianal region BIMANUAL: uterus normal size, shape and consistency, no adnexal masses, non-tender, and no cervical motion tenderness NEURO: alert and oriented x3,exam grossly non-focal EXTREMITIES: normal ASSESSMENT AND PLAN: Assessment & Plan Dysuria Lactating mother Vaginal discharge Orders: MATHIEU/TRICHOMONAS NAAT BACTERIAL VAGINOSIS NAAT BACTERIAL CULTURE, URINE History of section - Support provided - Discussed exam results and that vaginal discharge is normal lochia - UA dip- negative except for small leukocytes/ trace/lysed blood - Will notify patient of results or any treatment plans - RTO 6 weeks PP Rosario Garcia APRN.CNM documented in this encounter [facility] 09-07-2024 Telephone encounter Note Spoke with patient. Scheduled appointment for tomorrow. Bibiana Hernandes RN [facility] 09-07-2024 Miscellaneous Notes Spoke with patient. Scheduled appointment for tomorrow. Bibiana Hernandes RN documented in this encounter [facility] 08-25-2024 Note HNO ID: [id number] Author: BIBIANA WEATHERS MD Service: ? Author Type: Physician Type: Progress Notes Filed: 08/25/2024 20:51 Note Text: EARLY VISIT Kimberly Jeong is a 28 year old here for 1 week visit. Delivery Summary: C/S 08/18/2024 ROS: General: Denies any fever or chills Hypertension Screening: Headache? Yes. Was it successfully treated with Tylenol? Takes the edge off, but still there Visual Changes? No Epigastric Pain? No Increased Swelling? No Taking any BP medications at home? No If applicable, monitoring BP at home? (If Yes, include results) NA Mood: normal Depression: denies symptoms of depression. OB Depression and Anxiety Screening- This Encounter (since 08/24/2024) Over the past 2 weeks have you felt down, depressed, or hopeless? Negative Over the past two weeks, have you felt little interest or pleasure in doing things?? Negative Feeling nervous, anxious or on edge 1-Several days Not being able to stop or control worrying 0-Not al all Anxiety Pre-Screening Total (If >/= 3 additional questions will be reviewed) 1 Feeding: Breast and bottle feeding problems: Inadequate milk supply, Sore nipples Bladder: No dysuria, gross hematuria, urinary frequency, urinary urgency, or incontinence Bowel symptoms: Negative for abdominal discomfort, blood in stools or black stools and change in bowel habits Abdomen: She reports no incisional redness, tenderness, erythema Bleeding: light flow Bottom and Perineum: No issues Sleep: no sleep concerns and sleeps in bassinet/crib in parent's room, does not feel rested [place] since delivery: Not resumed Emotional support: Yes Exercise: N/A Other issues: None SENSITIVE EXAM: Sensitive exam not performed. PHYSICAL EXAMINATION: BP 120/84 Wt 78.7 kg (173 lb 9.6 oz) LMP 12/07/2023 (Exact Date) Yes BMI 31.75 kg/m? General: pleasant,female in no apparent distress, AANDO x 3. Skin warm and intact. Breast: Deferred Abdomen: Deferred /Incision: No incisional redness, swelling, or drainage Pelvic: Deferred Bimanual: Deferred ASSESSMENT AND PLAN: 28 year old status post CS with normal course. Contraception plan: tubal ligation. Reinforced 6-week pelvic rest. Encouraged condom usage should patient deviate. Education: resources provided - see MA/RN note Follow up: Return to Clinic for 6 week visit and as needed Bibiana Weathers MD [facility] 08-25-2024 History of Present illness Narrative EARLY VISIT Kimberly Jeong is a 28 year old here for 1 week visit. Delivery Summary: C/S 08/18/2024 ROS: General: Denies any fever or chills Hypertension Screening: Headache? Yes. Was it successfully treated with Tylenol? Takes the edge off, but still there Visual Changes? No Epigastric Pain? No Increased Swelling? No Taking any BP medications at home? No If applicable, monitoring BP at home? (If Yes, include results) NA Mood: normal Depression: denies symptoms of depression. OB Depression and Anxiety Screening- This Encounter (since 08/24/2024) Over the past 2 weeks have you felt down, depressed, or hopeless? Negative Over the past two weeks, have you felt little interest or pleasure in doing things? Negative Feeling nervous, anxious or on edge 1-Several days Not being able to stop or control worrying 0-Not al all Anxiety Pre-Screening Total (If >/= 3 additional questions will be reviewed) 1 Feeding: Breast and bottle feeding problems: Inadequate milk supply, Sore nipples Bladder: No dysuria, gross hematuria, urinary frequency, urinary urgency, or incontinence Bowel symptoms: Negative for abdominal discomfort, blood in stools or black stools and change in bowel habits Abdomen: She reports no incisional redness, tenderness, erythema Bleeding: light flow Bottom and Perineum: No issues Sleep: no sleep concerns and sleeps in bassinet/crib in parent's room, does not feel rested [place] since delivery: Not resumed Emotional support: Yes Exercise: N/A Other issues: None SENSITIVE EXAM: Sensitive exam not performed. PHYSICAL EXAMINATION: BP 120/84 Wt 78.7 kg (173 lb 9.6 oz) LMP 12/07/2023 (Exact Date) Yes BMI 31.75 kg/m General: pleasant,female in no apparent distress, A&O x 3. Skin warm and intact. Breast: Deferred Abdomen: Deferred /Incision: No incisional redness, swelling, or drainage Pelvic: Deferred Bimanual: Deferred ASSESSMENT AND PLAN: 28 year old status post CS with normal course. Contraception plan: tubal ligation. Reinforced 6-week pelvic rest. Encouraged condom usage should patient deviate. Education: resources provided - see MA/RN note Follow up: Return to Clinic for 6 week visit and as needed Bibiana Weathers MD documented in this encounter [facility] 08-24-2024 Telephone encounter Note Patient had 08/18/24. Received fax from [facility] that they saw patient 08/23/24 and her hgb was 7.0 and 7.9 when rechecked. Both were done via fingerstick. They reviewed high iron foods and ways to increase absorption with her. Per [facility] records her hgb 08/19/24 was 6.9 and she was discharged that day to continue iron supplement. She has PP visit with you tomorrow. TARYN. Luz Cody RN [facility] 08-24-2024 Miscellaneous Notes Patient had 08/18/24. Received fax from [facility] that they saw patient 08/23/24 and her hgb was 7.0 and 7.9 when rechecked. Both were done via fingerstick. They reviewed high iron foods and ways to increase absorption with her. Per [facility] records her hgb 08/19/24 was 6.9 and she was discharged that day to continue iron supplement. She has PP visit with you tomorrow. FYI. Luz Cody RN documented in this encounter [facility] 08-19-2024 Telephone encounter Note L&D notified. Johanna Archer RN [facility] 08-19-2024 Miscellaneous Notes L&D notified. Johanna Archer RN Oxycodone sent Yobani Darby MD [facility] nursing staff is asking if a prescription for Oxycodone can be sent to [facility] in [place] prior to patient being discharged. Thank you. Bibiana Hernandes RN documented in this encounter [facility] 08-19-2024 Telephone encounter Note Oxycodone sent Yobani Darby MD [facility] 08-19-2024 Telephone encounter Note [facility] nursing staff is asking if a prescription for Oxycodone can be sent to [facility] in [place] prior to patient being discharged. Thank you. Bibiana Hernandes RN [facility] 08-19-2024 Note [facility] Medical Records Department [address] [place] [address] Discharge Summary 08/19/24 0844 MR#: [id number] Acct: [id number] Name: KIMBERLY JEONG Rep #: [id number] : 1995 28 From: Yobani Darby MD PCP: Dr. Surjit Aguirre MD Status:ADM IN Location: [id number] Providers Date of Admission: 08/17/24 Date of Discharge: 08/19/24 Primary Care Physician: Dr. Surjit Aguirre MD Reason For Visit: LABOR-REPEAT C SECTION Diagnosis Discharge Diagnosis (1) S/P : Status: Acute Code(s): Z98.891 - History of uterine scar from previous surgery (2) Anemia: Status: Acute Code(s): D64.9 - Anemia, unspecified Qualifiers: Anemia type: iron deficiency Iron deficiency anemia type: unspecified iron deficiency Q ualified Code(s): D50.9 - Iron deficiency anemia, unspecified Plan Heme - HDS. Patient with chronic anemia. COntinue PO iron GI/ - no issues Plan for d/c home later today per patient request Medications at Discharge Home Medications vitamins-iron fumarate 65 mg iron-folic acid 1 mg tablet 1 tab PO DAILY 01/01/22 famotidine 20 mg tablet (Pepcid) 20 mg PO BID #60 tabs 02/01/24 acetaminophen 500 mg tablet 1,000 mg (2 x 500 mg) PO Q6 #0 tabs 08/19/24 ferrous sulfate 325 mg (65 mg iron) tablet (FeroSul) 325 mg PO DAILY@1200 #0 tabs 08/19/24 ibuprofen 600 mg tablet 600 mg PO Q6H #0 tabs 08/19/24 Hospital Course Operations section Summary of Care Provided Minutes Spent on Discharge: 15 Weight / BMI Weight Weight: 189 lb 2.506 oz Body Mass Index (BMI) 34.6 ABG / Lab / Microbiology Data 08/19/24 05:30 Laboratory: Laboratory Results - last 24 hr 08/18/24 08:15: WBC 16.0 H, RBC 3.54 L, Hgb 6.9 L, Hct 23.7 L, MCV 66.9 L, MCH 19.5 L, MCHC 29.1 L, RDW Std Deviation 41.7, RDW Coeff of Macy 17.5 H, Plt Count 257, MPV 11.2 08/19/24 05:30: WBC 15.6 H, RBC 3.50 L, Hgb 6.9 L, Hct 23.8 L, MCV 68.0 L, MCH 19.7 L, MCHC 29.0 L, RDW Std Deviation 42.3, RDW Coeff of Macy 17.8 H, Plt Count 292, MPV 10.7, Immature Gran % (Auto) 3.200 H, Neut % (Auto) 65.5, Lymph % (Auto) 23.2, [place] % (Auto) 7.4, Eos % (Auto) 0.5, Baso % (Auto) 0.2, Absolute Neuts (auto) 10.3 H, Absolute Lymphs (auto) 3.63, Nucleated RBC % 1.3 D/C Instructions Discharge Diet: No restrictions Discharge Activity: May Shower May resume sexual activity in: 6 weeks Weight Bearing Status: Weight bearing as tolerated Call your doctor if your incision/area has: Continuous Slow Oozing, Sudden Increased Bleeding, Increased Pain/ Swelling, Increased Redness, Foul Smelling Discharge and Swelling at the incision site Call your doctor if you observe: Fever of 101 or Higher, Coldness, Increased Pain, Change in Color, Inability to urinate, Inability to have a bowel movement, Using more than 1 pad per hour, Shortness of breath, Dizziness, Fainting spells, Chest pain, Increased palpitations (irregular heartbeat), Calf discomfort and Uncontrolled pain Suture Line Care: Avoid Pulling/Pushing and Avoid Pinching/Bending Remove Dressing in: 1 week Cleanse incision/area with: Soap Water DC O2, CPAP, BIPAP Needs Home O2 Discharge instructions: No Please Follow Up With: Bibiana Weathers MD When: Follow up in 2 and 6 weeks for visits. Meaningful Use Info Meaningful Use Meaningful Use Diagnoses (Choose all that apply): None applicable Ischemic Stroke Statin Dosing Therapy Reference: STATIN DOSE THERAPY REFERENCE: * Patients > 75 years receive moderate or high dose statin therapy. * Patients 75 years or YOUNGER should receive HIGH intensity statin dose unless contraindicated. You will be required to document reason for non-treatment if statin daily dose does not meet guidelines. HIGH DOSE STATIN THERAPY DAILY Atorvastatin > than or = to 40 mg Rosuvastatin > than or = to 20 mg Amlodipine + Atorvastatin > than or = to 2.5/40 mg Ezetimibe + Simvastatin 10/80 mg Simvastatin 80mg Discharge Plan Admission Admit Date/Time: 08/17/24 22:00 Primary Reason for Your Visit: section Attending Provider: Bibiana Weathers Primary Care Provider: Surjit Aguirre Discharge Orders/Prescriptions Prescriptions: New acetaminophen 500 mg Tablet 1,000 mg PO Q6 Qty: 0 0RF ferrous sulfate [FeroSul] 325 mg (65 mg iron) Tablet 325 mg PO DAILY@1200 Qty: 0 0RF ibuprofen 600 mg Tablet 600 mg PO Q6H Qty: 0 0RF Continued vit-iron fum-folic ac 65 mg iron- 1 mg Tablet 1 tab PO DAILY famotidine [Pepcid] 20 mg tablet 20 mg PO BID Qty: 60 4RF Discontinued duloxetine 60 mg capsule,delayed release(DR/EC) 60 mg PO DAILY pyridoxine (vitamin B6) 50 mg Tablet 50 mg PO BID Qty: 60 3RF Sleep Aid (doxylamine) 25 mg tablet 25 mg PO QHS PRN (Reason: nausea and vomiting) Qty: 30 0RF ondansetron 4 mg (more content not included)... [facility] 08-19-2024 Note HNO ID: [id number] Author: JOHANNA ARCHER RN Service: ? Author Type: Registered Nurse Type: Progress Notes Filed: 08/19/2024 08:48 Note Text: Patient delivered via Repeat C/S at [facility] on 08/18/24 per Bibiana Weathers MD. See OB Outcome note. Johanna Archer RN [facility] 08-19-2024 History of Present illness Narrative Patient delivered via Repeat C/S at [facility] on 08/18/24 per Bibiana Weathers MD. See OB Outcome note. Johanna Archer RN documented in this encounter [facility] 08-16-2024 Progress note Formatting of t his note might be different from the original. S: Kimberly Jeong is a 28 year old female who presents at 36 weeks gestation for a routine visit. Positive movements. Growth US @ 32 weeks was EFW 95% AC >99%. Repeat growth ordered but patient did not complete. Positive movements. Denies headache, visual changes, chest pain, shortness of breath, vaginal bleeding, leakage of fluid, or dysuria. Feeling well, no complaints. O: See flow sheet Gen: No apparent distress Abd: Gravid, nontender TAUS- shows vertex S>D, measuring 4 weeks ahead ASSESSMENT/PLAN: 1. Supervision of high risk in third trimester 2. Excessive growth affecting management of in third trimester, single or unspecified fetus 3. H/O delivery, currently 4. History of section 5. Anxiety during 6. 36 weeks gestation of - URINE OB DIP B/O - ROUTINE, GROUP B STREP PCR - Repeat growth US - Repeat C/S with BTL scheduled - RTO 1 week or sooner if needed Rosario Garcia APRN.CNM [facility] 08-16-2024 Miscellaneous Notes S: Kimberly Jeong is a 28 year old female who presents at 36 weeks gestation for a routine visit. Positive movements. Growth US @ 32 weeks was EFW 95% AC >99%. Repeat growth ordered but patient did not complete. Positive movements. Denies headache, visual changes, chest pain, shortness of breath, vaginal bleeding, leakage of fluid, or dysuria. Feeling well, no complaints. O: See flow sheet Gen: No apparent distress Abd: Gravid, nontender TAUS- shows vertex S>D, measuring 4 weeks ahead ASSESSMENT/PLAN: 1. Supervision of high risk in third trimester 2. Excessive growth affecting management of in third trimester, single or unspecified fetus 3. H/O delivery, currently 4. History of section 5. Anxiety during 6. 36 weeks gestation of - URINE OB DIP B/O - ROUTINE, GROUP B STREP PCR - Repeat growth US - Repeat C/S with BTL scheduled - RTO 1 week or sooner if needed Rosario Garcia APRN.CNM documented in this encounter [facility] 08-16-2024 Instructions Konstantin Simpson MA - 08/16/2024 10:22 AM EST SEQUENTIAL SCREENINGS The [facility] offers sequential screenings for women who [...] It will require an appointment with our warehouse technician. This is not an ultrasound performed [...] the above symptoms, contact our office at [phone] and ask to speak with a nurse. After hours, you can call doctors registry at [phone] OR call [facility] at [phone] and ask to have the doctor dish up person paged. If you consider this an emergency, dial [phone] or go to your nearest emergency department. NEED HELP? Are you dealing with a violent or abusive relationship? Are you a victim of rape or sexual assult? Call [facility] ([place]) 24 hour Crisis Hotline: 481.698.2819 or 265-781-8367. MANUAL Your Guide to a Healthy manual is now on-line. Visit [email or web address] to download your free copy documented in this encounter [facility] 08-06-2024 Progress note Formatting of t his note might be different from the original. DM-Pt doing well. Denies vaginal Bleeding, Leaking fluid, or regular Contractions. Pt reports good movement Physical Exam: Gen: female in no apparent distress Abd: soft, Gravid. Non tender to palpation. See flow sheet @ 35.2 weks Assessment & Plan Supervision of high risk in third trimester Orders: URINE OB DIP B/O Excessive growth affecting management of in third trimester, single or unspecified fetus H/O delivery, currently History of section Need for RSV vaccination Orders: RSV VACCINE, BIVALENT (ABRYSVO) 35 weeks gestation of kick counts and labor reviewed Rto weekly Danyell Mckeon MD [facility] 08-06-2024 Miscellaneous Notes DM-Pt doing well. Denies vaginal Bleeding, Leaking fluid, or regular Contractions. Pt reports good movement Physical Exam: Gen: female in no apparent distress Abd: soft, Gravid. Non tender to palpation. See flow sheet @ 35.2 weks Assessment & Plan Supervision of high risk in third trimester Orders: URINE OB DIP B/O Excessive growth affecting management of in third trimester, single or unspecified fetus H/O delivery, currently History of section Need for RSV vaccination Orders: RSV VACCINE, BIVALENT (ABRYSVO) 35 weeks gestation of kick counts and labor reviewed Rto weekly Danyell Mckeon MD documented in this encounter [facility] 08-06-2024 Instructions Edvin Skaggs MA - 08/06/2024 3:53 PM EST SEQUENTIAL SCREENINGS The [facility] offers sequential screenings for women who [...] It will require an appointment with our warehouse technician. This is not an ultrasound performed [...] the above symptoms, contact our office at [phone] and ask to speak with a nurse. After hours, you can call doctors registry at [phone] OR call [facility] at [phone] and ask to have the doctor dish up person paged. If you consider this an emergency, dial 91 or go to your nearest emergency department. NEED HELP? Are you dealing with a violent or abusive relationship? Are you a victim of rape or sexual assult? Call [facility] ([place]) 24 hour Crisis Hotline: 260.945.1901 or 933-912-2865. MANUAL Your Guide to a Healthy manual is now on-line. Visit [email or web address] to download your free copy documented in this encounter [facility] 07-22-2024 Note Indication Evaluation of growth Discrepancy between uterine size and clinical dates, Maternal obesity, BMI >30 , History of delivery Impression REMOTE READ - Single, live, intrauterine . - The biometry is accelerated for the assigned gestational dating. - The EFW is 2516 g, at the 95%. AC is at the 99%. - The amniotic fluid volume is normal amount with an MVP of 5 cm and an EDSON of 17.5 cm. - The placenta is anterior, fundal. - No malformations visualized on a limited survey as detailed below. Recommendations Growth in four weeks Maternal Assessment Height 160 cm Height (ft) 5 ft Height (in) 3 in Physical Exam Initial weight (lb) 178 lb Initial BMI 31.53 kg/m Maternal assessment other: 3 Para 2 Method Transabdominal ultrasound examination Hernández . Number of fetuses: 1 Dating LMP on: 12/07/2023 GA by LMP 32 w + 4 d RADHA by LMP: 09/12/2024 GA by prior assessment 33 w + 1 d RADHA by prior assessment: 09/08/2024 Ultrasound examination on: 07/22/2024 GA by U/S based upon: AC, BPD, Femur, HC GA by U/S 34 w + 6 d RADHA by U/S: 08/27/2024 Assigned: based on stated RAHDA, selected on 03/09/2024 Assigned GA 32 w + 4 d Assigned RADHA: 09/12/2024 General Evaluation Cardiac activity present. FHR 149 bpm. movements: present. Presentation: cephalic Placenta: Placental site: anterior, fundal Umbilical cord: Cord vessels: 3 vessel cord Amniotic fluid: Amount of AF: normal amount. MVP 5.0 cm. EDSON 17.5 cm. Q1 5.0 cm, Q2 4.2 cm, Q3 4.5 cm, Q4 3.8 cm Growth Overview Exam date GA BPD (mm) HC (mm) AC (mm) FL (mm) HL (mm) EFW (g) 05/13/2024 22w 4d 57.8 85% 220.2 85% 191.3 81% 41.9 92% 39.6 88% 631 93% 07/22/2024 32w 4d 89.2 >99% 320.6 90% 315.8 99% 63.3 68% 2516 95% Biometry Standard BPD 89.2 mm 36w 1d >99% Hadlock OFD 111.7 mm 33w 6d 79% Nicolaides HC 320.6 mm 35w 2d 90% Latisha AC 315.8 mm 35w 4d 99% Hadlock Femur 63.3 mm 32w 4d 68% Latisha EFW 2,516 g 34w 4d 95% Hadlock EFW (lb) 5 lb EFW (oz) 9 oz EFW by: Hadlock (HC-AC-FL) Extended Caponizer 7.6 mm Extremities / Bony Struc FL / HC 0.20 Other Structures FHR 149 bpm Anatomy Lateral ventricles: normal Cavum septi pellucidi: normal Cerebellum: normal Cisterna magna: normal 4-chamber view: normal RVOT view: normal LVOT view: normal 3-vessel view: normal Heart / Thorax Situs: situs solitus (normal) Diaphragm: normal Stomach: normal Kidneys: normal Bladder: normal sex: male Wants to know sex: yes Performed By: Johanna Sorto, BRIAN, RVT Read By: Julienne Gordon M.D. [facility] 07-19-2024 Note Addended by: KANWAL CHOW on: 07/19/2024 04:28 PM Modules accepted: Orders [facility] 07-19-2024 Miscellaneous Notes Addended by: KANWAL CHOW on: 07/19/2024 04:28 PM Modules accepted: Orders Addended by: KONSTANTIN SIMPSON on: 07/19/2024 04:27 PM Modules accepted: Orders NASEEM-S: Kimberly Jeong is a 28 year old female who presents at 32w5d with RADHA: 09/08/2024, by Ultrasound for a problem visit. Denies headache, visual changes, chest pain, shortness of breath, vaginal bleeding, leakage of fluid, or dysuria. Diagnosed with COVID, symptoms started 5 days ago. Presents today with mild O: See flow sheet Gen: No apparent distress Abd: Gravid, nontender VE:Negative pooling, cervix closed The sensitive examination was discussed with the Patient or Patient's Authorized Reduction Furnace Operator Helper. As applicable, any other physician, advance practice provider, medical student, or other health professional student that will be observing or involved in the sensitive examination for educational or training purposes was discussed with the Patient or Authorized Reduction Furnace Operator Helper. The Patient or Authorized Reduction Furnace Operator Helper has agreed to proceed with the sensitive examination. (Sensitive examination includes inspection and/or palpation of the breasts, pelvis, prostate and anorectal regions) ASSESSMENT/PLAN: 1. Supervision of high risk in third trimester -No signs of PTL -Reviewed hydration and rest -Offered Paxlovid but day 5 of symptoms, declines. 2. 32 weeks gestation of 3. H/O delivery, currently 4. History of section PTL precautions reviewed and when to call RTO as scheduled. Kanwal hCow APRN.CNM documented in this encounter [facility] 07-19-2024 Note Addended by: KONSTANTIN SIMPSON on: 07/19/2024 04:27 PM Modules accepted: Orders [facility] 07-19-2024 Progress note Formatting of t his note might be different from the original. NASEEM-S: Kimberly Jeong is a 28 year old female who presents at 32w5d with RADHA: 09/08/2024, by Ultrasound for a problem visit. Denies headache, visual changes, chest pain, shortness of breath, vaginal bleeding, leakage of fluid, or dysuria. Diagnosed with COVID, symptoms started 5 days ago. Presents today with mild O: See flow sheet Gen: No apparent distress Abd: Gravid, nontender VE:Negative pooling, cervix closed The sensitive examination was discussed with the Patient or Patient's Authorized Reduction Furnace Operator Helper. As applicable, any other physician, advance practice provider, medical student, or other health professional student that will be observing or involved in the sensitive examination for educational or training purposes was discussed with the Patient or Authorized Reduction Furnace Operator Helper. The Patient or Authorized Reduction Furnace Operator Helper has agreed to proceed with the sensitive examination. (Sensitive examination includes inspection and/or palpation of the breasts, pelvis, prostate and anorectal regions) ASSESSMENT/PLAN: 1. Supervision of high risk in third trimester -No signs of PTL -Reviewed hydration and rest -Offered Paxlovid but day 5 of symptoms, declines. 2. 32 weeks gestation of 3. H/O delivery, currently 4. History of section PTL precautions reviewed and when to call RTO as scheduled. Kanwal Chow APRN.CNM [facility] 07-19-2024 Telephone encounter Note Patient notified and scheduled for today. Couldn't be here until 3:30-3:45. Appointment scheduled with JC. Luz Cody RN [facility] 07-19-2024 Miscellaneous Notes Patient notified and scheduled for today. Couldn't be here until 3:30-3:45. Appointment scheduled with JC. Luz Cody RN I can see her to rule out PTL. Make sure she wears a mask at the front end technician please and come up to desk and ask to be roomed on our floor. Thanks, Kanwal Chow APRN.CNM 32w5d Having menstrual like cramping and lower back pain about every 30-45 minutes. She has noticed some leaking fluid with her coughing, but that it likely was urine each time. Having some pelvic pressure - she feels like baby is low. No urinary symptoms. No fever today. Do you want to see her today for an appointment? Luz Cody RN Images from the original note were not included. Danii Weinberg APRN.CNP [facility] Ob-Vp Director Of Creative Strategy Pool1 hour ago (11:04 AM) Please triage labor pains. Can be seen on , but needs to wear mask Danii Weinberg APRN.CNP documented in this encounter [facility] 07-19-2024 Telephone encounter Note I can see her to rule out PTL. Make sure she wears a mask at the front end technician please and come up to desk and ask to be roomed on our floor. Thanks, Kanwal Chow APRN.CNM [facility] Work Phone: 07-19-2024 Telephone encounter Note 32w5d Having menstrual like cramping and lower back pain about every 30-45 minutes. She has noticed some leaking fluid with her coughing, but that it likely was urine each time. Having some pelvic pressure - she feels like baby is low. No urinary symptoms. No fever today. Do you want to see her today for an appointment? Luz Cody RN [facility] 07-19-2024 Telephone encounter Note Images from the original note were not included. Danii Weinberg APRN.CNP [facility] Director Of Creative Strategy Pool1 hour ago (11:04 AM) Please triage labor pains. Can be seen on , but needs to wear mask Danii Weinberg APRN.CLINICAL MATERIAL HANDLER [facility] 07-19-2024 Telephone encounter Note Patient given results and verbalized understanding of instructions given. Jojo Stroud MA [facility] 07-19-2024 Miscellaneous Notes Patient given results and verbalized understanding of instructions given. Jojo Stroud MA Please contact patient and let her know that she tested positive for Covid-19. Supportive treatment at home. Please advise patient to notify her OB. documented in this encounter [facility] 07-19-2024 Telephone encounter Note Please contact patient and let her know that she tested positive for Covid-19. Supportive treatment at home. Please advise patient to notify her OB. [facility] Work Phone: 07-18-2024 Note Addended by: OSWALDO LOPEZ on: 07/18/2024 10:43 AM Modules accepted: Orders [facility] 07-18-2024 Miscellaneous Notes Addended by: OSWALDO LOPEZ on: 07/18/2024 10:43 AM Modules accepted: Orders documented in this encounter [facility] 07-18-2024 Note HNO ID: [id number] Author: OSWALDO LOPEZ APRN.CLINICAL MATERIAL HANDLER Service: ? Author Type: Nurse Practitioner Type: Progress Notes Filed: 07/18/2024 08:55 Note Text: This note was created using Twengariter. Subjective Kimberly Jeong is a 28 year old female. Presents for 2 day history of cough, sob, congestion and sore throat. Currently 32 weeks . Objective BP 108/64 Pulse 92 Temp 36.4 ?C (97.5 ?F) (Right Tympanic) Resp 16 Wt 82.7 kg (182 lb 5.1 oz) LMP 12/07/2023 (Exact Date) SpO2 97% BMI 33.35 kg/m? Physical Exam PHYSICAL EXAMINATION: General appearance: Well appearing, alert, in no acute distress, well-hydrated, well nourished. Ears: External ears normal, canals clear, Negative findings: Left tympanic membrane normal. Mobility is good, Right tympanic membrane normal. Mobility is good Nose/Sinuses: Positive findings: mucosa erythematous and swollen, purulent rhinorrhea Oropharynx: Lips, mucosa, and tongue normal, teeth and gums normal, oropharynx normal Neck: Supple, no adenopathy; thyroid symmetric, normal size, no bruits Lungs: Lungs clear to auscultation. No wheezing, rhonchi, rales. Heart: RRR without murmur, gallop, or rubs. No ectopy Assessment and Plan ASSESSMENT/PLAN: 1. URI, acute - ICD9: 465.9, ICD10: J06.9 - Discussed viral etiology and rationale for treatment. - Symptomatic treatment with prn analgesia - Supportive care with fluids and rest - The patient may also use OTC decongestants prn, warm salt water gargles, throat lozenges and/or OTC throat spray as needed, and nasal saline gtts and suction prn. - Follow up in 3-5 days if symptoms persist or sooner if worsening of symptoms Oswaldo Lopez APRN.[facility] 07-18-2024 History of Present illness Narrative This note was created using Twengariter. Subjective Kimberly Jeong is a 28 year old female. Presents for 2 day history of cough, sob, congestion and sore throat. Currently 32 weeks . Objective BP 108/64 Pulse 92 Temp 36.4 C (97.5 F) (Right Tympanic) Resp 16 Wt 82.7 kg (182 lb 5.1 oz) LMP 12/07/2023 (Exact Date) SpO2 97% BMI 33.35 kg/m Physical Exam PHYSICAL EXAMINATION: General appearance: Well appearing, alert, in no acute distress, well-hydrated, well nourished. Ears: External ears normal, canals clear, Negative findings: Left tympanic membrane normal. Mobility is good, Right tympanic membrane normal. Mobility is good Nose/Sinuses: Positive findings: mucosa erythematous and swollen, purulent rhinorrhea Oropharynx: Lips, mucosa, and tongue normal, teeth and gums normal, oropharynx normal Neck: Supple, no adenopathy; thyroid symmetric, normal size, no bruits Lungs: Lungs clear to auscultation. No wheezing, rhonchi, rales. Heart: RRR without murmur, gallop, or rubs. No ectopy Assessment and Plan ASSESSMENT/PLAN: 1. URI, acute - ICD9: 465.9, ICD10: J06.9 - Discussed viral etiology and rationale for treatment. - Symptomatic treatment with prn analgesia - Supportive care with fluids and rest - The patient may also use OTC decongestants prn, warm salt water gargles, throat lozenges and/or OTC throat spray as needed, and nasal saline gtts and suction prn. - Follow up in 3-5 days if symptoms persist or sooner if worsening of symptoms Oswaldo Lopez APRN.EMRE documented in this encounter [facility] 07-12-2024 Progress note Formatting of t his note might be different from the original. S: Kimberly Jeong is a 28 year old female who presents at 31 weeks gestation for a routine visit. Positive movements. Occasional cramps- discussed increasing fluid intake. Denies headache, visual changes, chest pain, shortness of breath, vaginal bleeding, leakage of fluid, or dysuria. Feeling well, no complaints. O: See flow sheet Gen: No apparent distress Abd: Gravid, nontender ASSESSMENT/PLAN: 1. 31 weeks gestation of - ICD9: V22.2, ICD10: Z3A.31 (primary diagnosis) 2. Supervision of high risk in third trimester - ICD9: V23.9, ICD10: O09.93 3. History of delivery - ICD9: V13.21, ICD10: Z87.51 4. History of section - ICD9: V45.89, ICD10: Z98.891 5. Uterine size discrepancy - S>D, measuring 3 weeks ahead - Growth US - Title 19 consent signed - Increase oral hydration - PTL precautions reviewed - RTO 2 weeks Rosario Garcia APRN.CNM [facility] 07-12-2024 Miscellaneous Notes S: Kimberly Jeong is a 28 year old female who presents at 31 weeks gestation for a routine visit. Positive movements. Occasional cramps- discussed increasing fluid intake. Denies headache, visual changes, chest pain, shortness of breath, vaginal bleeding, leakage of fluid, or dysuria. Feeling well, no complaints. O: See flow sheet Gen: No apparent distress Abd: Gravid, nontender ASSESSMENT/PLAN: 1. 31 weeks gestation of - ICD9: V22.2, ICD10: Z3A.31 (primary diagnosis) 2. Supervision of high risk in third trimester - ICD9: V23.9, ICD10: O09.93 3. History of delivery - ICD9: V13.21, ICD10: Z87.51 4. History of section - ICD9: V45.89, ICD10: Z98.891 5. Uterine size discrepancy - S>D, measuring 3 weeks ahead - Growth US - Title 19 consent signed - Increase oral hydration - PTL precautions reviewed - RTO 2 weeks Rosario Garcia APRN.CNM documented in this encounter [facility] 07-12-2024 Instructions Nallely Mcknight MA - 07/12/2024 3:12 PM EST SEQUENTIAL SCREENINGS The [facility] offers sequential screenings for women who [...] It will require an appointment with our warehouse technician. This is not an ultrasound performed [...] the above symptoms, contact our office at [phone] and ask to speak with a nurse. After hours, you can call doctors registry at [phone] OR call [facility] at [phone] and ask to have the doctor dish up person paged. If you consider this an emergency, dial 9--8 or go to your nearest emergency department. NEED HELP? Are you dealing with a violent or abusive relationship? Are you a victim of rape or sexual assult? Call [facility] ([place]) 24 hour Crisis Hotline: 596.578.8420 or 499-975-6612. MANUAL Your Guide to a Healthy manual is now on-line. Visit [email or web address] ncyGuide to download your free copy documented in this encounter [facility] 06-24-2024 Progress note Formatting of t his note might be different from the original. KJ - VB No. LOF No. CTXS No. Movement: present. Other c/o: No. Medication list reviewed. Physical Exam See Flow Sheet Gen: no accute distress, well appearing Abd: soft, nontender, gravid A/P 29w1d Estimated Date of Delivery: 09/08/24 Labs: 28 week labs today MOD - repeat PPBC - desires bilateral salpingectomy Tdap today Declines flu vaccine PTL precautions reviewed, Kick counts reviewed. Yobani Darby MD [facility] 06-24-2024 Miscellaneous Notes KJ - VB No. LOF No. CTXS No. Movement: present. Other c/o: No. Medication list reviewed. Physical Exam See Flow Sheet Gen: no accute distress, well appearing Abd: soft, nontender, gravid A/P 29w1d Estimated Date of Delivery: 09/08/24 Labs: 28 week labs today MOD - repeat PPBC - desires bilateral salpingectomy Tdap today Declines flu vaccine PTL precautions reviewed, Kick counts reviewed. Yobani Darby MD documented in this encounter [facility] 06-24-2024 Note HNO ID: [id number] Author: EDVIN SKAGGS MA Service: ? Author Type: Automotive Parts Clerk Type: Progress Notes Filed: 06/24/2024 16:02 Note Text: Patient identified by name and date of . Kimberly Jeong presents today for a vaccination of Tdap. Patient denies an allergy to latex: yes Patient denies a severe (life-threatening) allergy to a previous dose of Tdap, DTP, DTaP, DT or Td vaccine. Yes Patient denies history of epilepsy or neurological problems: Yes Patient is afebrile and denies being moderately or severely ill: Yes Patient denies history of Guillain-Otis Syndrome (a severe paralytic illness): Yes Tdap Adacel injection was given without incident. See immunizations for details of immunizations administered today. VIS sheet provided: Yes Provider Wilner was present in office at time of injection. Edvin Skaggs MA [facility] 06-24-2024 History of Present illness Narrative Patient identified by name and date of . Kimberly Jeong presents today for a vaccination of Tdap. Patient denies an allergy to latex: yes Patient denies a severe (life-threatening) allergy to a previous dose of Tdap, DTP, DTaP, DT or Td vaccine. Yes Patient denies history of epilepsy or neurological problems: Yes Patient is afebrile and denies being moderately or severely ill: Yes Patient denies history of Guillain-Otis Syndrome (a severe paralytic illness): Yes Tdap Adacel injection was given without incident. See immunizations for details of immunizations administered today. VIS sheet provided: Yes Provider Wilner was present in office at time of injection. Edvin Skaggs MA documented in this encounter [facility] 06-24-2024 Instructions Edvin Skaggs MA - 06/24/2024 3:05 PM EST SEQUENTIAL SCREENINGS The [facility] offers sequential screenings for women who [...] It will require an appointment with our warehouse technician. This is not an ultrasound performed [...] the above symptoms, contact our office at [phone] and ask to speak with a nurse. After hours, you can call doctors registry at [phone] OR call [facility] at [phone] and ask to have the doctor dish up person paged. If you consider this an emergency, dial 9-1-6 or go to your nearest emergency department. NEED HELP? Are you dealing with a violent or abusive relationship? Are you a victim of rape or sexual assult? Call [facility] ([place]) 24 hour Crisis Hotline: 513.589.1444 or 226-723-0709. MANUAL Your Guide to a Healthy manual is now on-line. Visit [email or web address] ncyGuide to download your free copy documented in this encounter [facility] 06-09-2024 Note HNO ID: [id number] Author: SAMI VORA MD Service: ? Author Type: Physician Type: Progress Notes Filed: 06/09/2024 09:01 Note Text: Heart, Vascular [facility] Thoracic [facility] Department of Cardiovascular Medicine SECTION OF CLINICAL CARDIOLOGY OUTPATIENT VISIT DATE June 09, 2024 OUTPATIENT VISIT TYPE ESTABLISHED PRIMARY CARE PHYSICIAN: Surjit Aguirre [address] [place] [address] REFERRING PHYSICIAN: Sami Vora [address] [facility] [address] CHIEF COMPLAINT: Palpitations, , history of myocarditis [...] Known Problems Son Patient-Entered Questionnaire Scores 09/17/2017 12/20/202009/10/2023 PROMIS Global Health - (T-Scores - the [...] 12/07/2023 (Exact Date) SpO2 100% BMI 32.37 kg/m? No physical examination performed CARDIOVASCULAR MEDICINE TESTING: [...] systolic function is normal. EF = 58 ? 5% (2D biplane) Normal left ventricular diastolic [...] have personally reviewed the Electrocardiogram, Laboratory Testing, Echocardiogram (more content not included)... [facility] 06-09-2024 History of Present illness Narrative Images from the original note were not included. Heart, Vascular [facility] Department of Cardiovascular Medicine SECTION OF CLINICAL CARDIOLOGY OUTPATIENT VISIT DATE June 09, 2024 OUTPATIENT VISIT TYPE ESTABLISHED PRIMARY CARE PHYSICIAN: Surjit Aguirre [address] [place] [address] REFERRING PHYSICIAN: Sami Vora [address] [facility] [address] CHIEF COMPLAINT: Palpitations, , history of myocarditis [...] should review with her primary team and tax appraiser her anemia situation. PLAN AND RECOMMENDATIONS: 1. Palpitations, sinus tachycardia: Conservative management. 2. Disposition: Patient will return to see me on as-needed basis. CONTACT INFORMATION: Sami Vora M.D., F.Hunter.CObinnaC. Staff Tie Layer [facility] Desk [place] [address] Office - [phone] extension [phone] Office Appointments: [phone] -[phone] extension [phone] documented in this encounter [facility] 05-26-2024 Note HNO ID: [id number] Author: GENNARO MAXWELL Tech Service: ? Author Type: Technologist Type: Progress Notes Filed: 05/26/2024 13:37 Note Text: HOLTER MONITOR APPLICATION Patient Name: [facility] Number: [id number] Chest is cleansed with alcohol Skin prep [...] or 48 hours 6.) Call with problems [phone] OR [phone] Patient expresses good verbal understanding of instructions Azucena Avila [facility] 05-26-2024 History of Present illness Narrative HOLTER MONITOR APPLICATION Patient Name: [facility] Number: [id number] Chest is cleansed with alcohol Skin prep [...] or 48 hours 6.) Call with problems [phone] OR [phone] Patient expresses good verbal understanding of instructions Azucena Avila documented in this encounter [facility] 05-26-2024 Note Education (CARDMN) KIMBERLY JEONG ([id number]) 1995 F Date Time Provider Department 05/26/24 12:00 PM ARRHYTHMIA MONITORING LAB [facility] Reason for Visit: Holter Monitor Application [261] Cmt: 48 HR Visit Diagnosis:Palpitations [R00.2] Order(s):HOLTER MONITOR 48 HOUR [[id number]] Order #: [id number] During your visit today, we recorded the [...] Encounter Status:Closed by GENNARO MAXWELL on 05/26/24 [facility] 05-26-2024 Instructions Pollo Tyler MD - 05/26/2024 11:19 AM EDT It was great to meet and care for you today in clinic. Please find the plan for your care below. Echocardiogram Halter Monitor Lab work Follow up in 2 weeks documented in this encounter [facility] 05-26-2024 Note HNO ID: [id number] Author: SAMI VORA MD Service: ? Author Type: Physician Type: Progress Notes Filed: 06/07/2024 13:32 Note Text: Heart, Vascular [facility] Department of Cardiovascular Medicine SECTION OF CLINICAL CARDIOLOGY OUTPATIENT VISIT DATE May 26, 2024 OUTPATIENT VISIT TYPE NEW PRIMARY CARE PHYSICIAN : Surjit Aguirre [address] [place] [address] REFERRING PHYSICIAN: Rosario Garcia [address] [facility] [address] CHIEF COMPLAINT: Palpitations HISTORY OF PRESENT ILLNESS: [...] child and had been cleared by her php mysql developer (Dr. Devin Lay) when she was last [...] ankle 09/10/2023 Myocarditis (HCC) age 18 months [address] Lay--recheck age [...] for: Weakness, Paralysis, (more content not included)... [facility] 05-26-2024 History of Present illness Narrative Images from the original note were not included. [facility] Department of Cardiovascular Medicine SECTION OF CLINICAL CARDIOLOGY OUTPATIENT VISIT DATE May 26, 2024 OUTPATIENT VISIT TYPE NEW PRIMARY CARE PHYSICIAN : Surjit Aguirre [address] [place] [address] REFERRING PHYSICIAN: Rosario Garcia [address] [facility] [address] CHIEF COMPLAINT: Palpitations HISTORY OF PRESENT ILLNESS: [...] child and had been cleared by her php mysql developer (Dr. Devin Lay) when she was last [...] 91 Resp 16 Ht 157.5 cm (5' 2) Wt 80.7 kg (178 lb) LMP 12/07/2023 [...] Medicine Fellow, PGY-5 Heart Vascular [facility] Thoracic [facility] Pager: [phone] CONTACT INFORMATION: [facility] STAFF PHYSICIAN NOTE OF PERSONAL INVOLVEMENT IN [...] PM documented in this encounter [facility] 05-21-2024 Telephone encounter Note I have called [place] [facility] [place] [facility], & [facility] per patient. [facility] are checking with providers to work patient in soon. They will call patient. [facility] Work Phone: 05-21-2024 Miscellaneous Notes I have called [place] [facility] [place] [facility], [facility] per patient. [facility] are checking with providers to work patient in soon. They will call patient. documented in this encounter [facility] 05-21-2024 Progress note Formatting of t [...] quickly recovers. Palpitations make her feel really anxious. History of anxiety but feels stable off [...] OB appointment Rosario Garcia APRN.CNM [facility] 05-21-2024 Miscellaneous Notes S: Kimberly Jeong [...] quickly recovers. Palpitations make her feel really anxious. History of anxiety but feels stable off [...] APRN.CNM documented in this encounter [facility] 05-21-2024 Instructions Sarah Strauss MA - 05/21/2024 3:22 PM EDT SEQUENTIAL SCREENINGS The [facility] offers sequential screenings for women who [...] It will require an appointment with our warehouse technician. This is not an ultrasound performed [...] the above symptoms, contact our office at [phone] and ask to speak with a nurse. After hours, you can call doctors registry at [phone] OR call [facility] at [phone] and ask to have the doctor dish up person paged. If you consider this an emergency, dial 9-1-1 or go to your nearest emergency department. NEED HELP? Are you dealing with a violent or abusive relationship? Are you a victim of rape or sexual assult? Call [facility] [place] ([facility] 24 hour Crisis Hotline: 222.602.6546 or 150-259-2726. MANUAL Your Guide to a Healthy manual is now on-line. Visit [email or web address] ncyGuide to download your free copy documented in this encounter [facility] 05-20-2024 Telephone encounter Note Thanks for the update. Rosario Plotts, HEALTH INFORMATION SPECIALIST.CNM [facility] Work Phone: 05-20-2024 Miscellaneous Notes Thanks for the update. Rosario Garcia APRN.CNM Patient made appointment on [facility] to be seen tomorrow. Johanna Archer RN Patient 23w4d, last seen 05/13. Next appointment on 06/10. documented in this encounter [facility] 05-20-2024 Telephone encounter Note Patient made appointment on [facility] to be seen tomorrow. Johanna Archer RN [facility] 05-20-2024 Telephone encounter Note Patient 23w4d, last seen 05/13. Next appointment on 06/10. [facility] 05-17-2024 Telephone encounter Note Signed. Danii Weinberg APRN.CNP [facility] 05-17-2024 Miscellaneous Notes Signed. Danii Weinberg APRN.CNP Patient notified. She would like to schedule in [place] since she works in [place]. Please file order. We will then route to PSS to assist with scheduling. Thank you. Bibiana Hernandes RN ----- Message from Danii Weinberg APRN.CNP sent at 05/17/2024 7:17 AM EDT ----- Reviewed. Please add to record. Needs 1 more cervical length screening at 24 weeks. Danii Weinberg APRN.CNP documented in this encounter [facility] 05-17-2024 Telephone encounter Note Patient notified. She would like to schedule in [place] since she works in [place]. Please file order. We will then route to [facility] to assist with scheduling. Thank you. Bibiana Hernandes RN [facility] 05-17-2024 Telephone encounter Note ----- Message from Danii Weinberg APRN.CNP sent at 05/17/2024 7:17 AM EDT ----- Reviewed. Please add to record. Needs 1 more cervical length screening at 24 weeks. Danii Weinberg APRN.CNP [facility] 05-13-2024 Miscellaneous Notes S: Kimberly Jeong is a 28 year old female who presents at 09/12/2024, by Last Menstrual Period for a routine visit. Denies headache, visual changes, chest pain, shortness of breath, vaginal bleeding, leakage of fluid, or dysuria. Feeling well, no complaints. O: See flow sheet Gen: No apparent distress Abd: Gravid, nontender Anatomy US in [place] no report yet. ASSESSMENT/PLAN: 1. 22 weeks [...] MD documented in this encounter [facility] 05-13-2024 Progress note Formatting of t [...] distress Abd: Gravid, nontender Anatomy US in [place] no report yet. ASSESSMENT/PLAN: 1. 22 weeks [...] TOTAL W/REFLEX Bibiana Weathers MD [facility] 05-13-2024 Instructions Nallely Mcknight MA - 05/13/2024 3:27 PM EDT SEQUENTIAL SCREENINGS The [facility] offers sequential screenings for women who [...] It will require an appointment with our warehouse technician. This is not an ultrasound performed [...] the above symptoms, contact our office at [phone] and ask to speak with a nurse. After hours, you can call doctors registry at [phone] OR call [facility] at [phone] and ask to have the doctor dish up person paged. If you consider this an emergency, dial 9-1-1 or go to your nearest emergency department. NEED HELP? Are you dealing with a violent or abusive relationship? Are you a victim of rape or sexual assult? Call [facility] ([place]) 24 hour Crisis Hotline: 695.757.6215 or [phone]. MANUAL Your Guide to a Healthy manual is now on-line. Visit [facility]org/HealthyPregna ncyGuide to download your free copy documented in this encounter [facility] 05-12-2024 Telephone encounter Note FMLA paperwork has been completed and faxed to the number patient provided. Patient notified. Konstantin Simpson MA [facility] 05-12-2024 Miscellaneous Notes FMLA paperwork has been completed and faxed to the number patient provided. Patient notified. Konstantin Simpson MA FMLA paperwork completed and on providers desk for signature. Konstantin Simpson MA Received FMLA paperwork from employer. Awaiting patients response with amount of leave she is requesting. Konstantin Simpson MA documented in this encounter [facility] 05-11-2024 Telephone encounter Note FMLA paperwork completed and on providers desk for signature. Konstantin Simpson MA [facility] 05-11-2024 Telephone encounter Note Received FMLA paperwork from employer. Awaiting patients response with amount of leave she is requesting. Konstantin Simpson MA [facility] 05-05-2024 Telephone encounter Note LM for patient to call the office to reschedule her ultrasund scheduled for 05/06/2024 in [place] needs to be an hour anatomy scan [facility] 05-05-2024 Miscellaneous Notes LM for patient to call the office to reschedule her ultrasund scheduled for 05/06/2024 in [place] needs to be an hour anatomy scan documented in this encounter [facility] 04-07-2024 Note HNO ID: [id number] Author: BIBIANA HERNANDES RN Service: ? Author Type: Registered Nurse Type: Progress Notes Filed: 04/07/2024 08:45 Note Text: Scan on 04/07/2024 8:23 AM by Provider, Lorrie PADamianC: Miscellaneous Clinical Documents [facility] 04-07-2024 History of Present illness Narrative Scan on 04/07/2024 8:23 AM by ProviderLorrie PA-C: Miscellaneous Clinical Documents documented in this encounter [facility] 04-02-2024 Telephone encounter Note Called Pt and appt made for 04/05 3:50 with BRITT. Justin Peterson RN [facility] 04-02-2024 Miscellaneous Notes Called Pt and appt made for 04/05 3:50 with SW. Justin Peterson RN documented in this encounter [facility] 03-31-2024 Telephone encounter Note Received fax from [employer] stating Pt [[employer] ID [id number]/ Phone # ] has been noncompliant since 03/18/24 and agreed to speak 03/24/24. They have left 3 messages and Pt has not responded. Pt will be discharged from [facility] services on 04/01/24. Opt will fax the patient summary on the discharge date unless they hear back from patient to continue service. Justin Peterson RN [facility] 03-31-2024 Miscellaneous Notes Received fax from [employer] stating Pt [[employer] ID [id number]/ Phone # ] has been noncompliant since 03/18/24 and agreed to speak 03/24/24. They have left 3 messages and Pt has not responded. Pt will be discharged from [facility] on 04/01/24. [facility] will fax the patient summary on the discharge date unless they hear back from patient to continue service. Justin Peterson RN documented in this encounter [facility] 03-09-2024 Progress note Formatting of t [...] repeat with tubal sterilization Yobani Darby MD [facility] 03-09-2024 Miscellaneous Notes KJ - VB [...] MD documented in this encounter [facility] 03-09-2024 Note HNO ID: [id number] Author: JUSTIN PETERSON, ASHLEE Service: ? Author Type: Registered Nurse Type: Progress Notes Filed: 03/09/2024 10:01 Note Text: Patient here for First Trimester Screening. See ultrasound report for details. Options for genetic screening and diagnosis discussed with the patient. Patient opts for first trimester screening and the sequential screening protocol. Limitations of screening tests discussed with the patient. Yobani Darby MD [facility] 03-09-2024 History of Present illness Narrative Patient here for First Trimester Screening. See ultrasound report for details. Options for genetic screening and diagnosis discussed with the patient. Patient opts for first trimester screening and the sequential screening protocol. Limitations of screening tests discussed with the patient. Yoabni Darby MD documented in this encounter [facility] 03-09-2024 Instructions Justin Peterson RN - 03/09/2024 9:16 AM EDT SEQUENTIAL SCREENINGS The [facility] offers sequential screenings for women who [...] It will require an appointment with our warehouse technician. This is not an ultrasound performed [...] the above symptoms, contact our office at [phone] and ask to speak with a nurse. After hours, you can call doctors registry at [phone] OR call [facility] at [phone] and ask to have the doctor dish up person paged. If you consider this an emergency, dial [phone]- or go to your nearest emergency department. NEED HELP? Are you dealing with a violent or abusive relationship? Are you a victim of rape or sexual assult? Call [facility] ([place]) 24 hour Crisis Hotline: 802.122.2420 or 073-130-6799. MANUAL Your Guide to a Healthy manual is now on-line. Visit [facility].org/HealthyPregna ncyGuide to download your free copy SEQUENTIAL TESTING PROCESS Sequential Screen First Trimester Today you are currently: 13w2d weeks 03/09/2024: Ultrasound and blood test. Sequential Screen Second Trimester (16-17 Weeks Gestation) When you are called with your results, the nurse will give the optimal draw dates for the Sequential screen second trimester. Blood testing can be done at any [facility] lab. Please report to the any pet training instructor office front end technician for the Sequential Part 2 requisition and [...] medicine office, for east side please call [phone] or for the West side call [phone] and ask for the the nurse. Thank you. documented in this encounter [facility] 03-01-2024 History of Present illness Narrative [...] Past Histories independently gathered by the clinical pit crew support worker and the remaining scribed note accurately describes my personal service to the patient. Medical Decision Making: Problems: Low: Acute, uncomplicated illness or injury Risk: Moderate: Drug management Medical Decision Making Level: 3 - Kareem Aguirre MD The documentation for this note was completed by Candy Rousseau MA acting as scribe for Surjit Aguirre MD. March 01, 2024 2:08 PM. Candy Rousseau MA documented in this encounter [facility] 02-17-2024 History of Present illness Narrative Images from the original note were not included. Aluminum Container Tester [place]ade OUTPATIENT VISIT DATE February 17, 2024 OUTPATIENT VISIT TYPE CONSULT REFERRING PROVIDER: Danii Weinberg APRN.CLINICAL MATERIAL HANDLER Recommendations from today's consultation will be conveyed through the electronic medical record. History of Present Illness: 28 year old at 10w2d with Estimated Date of Delivery: 09/12/24 presenting for consultation with Maternal- Medicine at the [facility] in the setting of history two [...] 01/29/2024 Injury of right ankle 09/10/2023 Myocarditis ([facility]) age 18 months 2006 cleared for [address] Lay--recheck age 18 yrs PMH - PAST MEDICAL HISTORY OF 06/2007 Right wrist fracture PMH - PAST MEDICAL HISTORY OF normal color vision depression Recurrent major depressive disorder, in partial remission ([facility]) 11/03/2020 Sprain of right ankle 09/10/2023 Sprain [...] effectiveness in preventing recurrent (she was on [place] last ). We did discuss that vaginal [...] age 18 months. She last saw her php mysql developer Dr. Lay at [facility] at age 19. Was cleared for participation in sports by cardiology as a teenager. She states she does not take antibiotics prior to dental procedures.TKRN History of viral myocarditis discussed along with risks/implications. Patient states she had last ECHO/cardiology assessment at age 19 and was cleared by her team at [facility]. 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 Has psychiatrist, tolerating cymbalta (02/17/24) [...] or concerns. Consultation requested by Danii Weinberg NP for an opinion regarding above complications. My final recommendations will be communicated back to the requesting physician by way of shared Medical record or letter to requesting physician via US mail. Medical Decision Making: Problems: Moderate: 2+ stable chronic illnesses and New problem with uncertain prognosis Risk: Moderate: Moderate risk from testing/treatment Medical Decision Making Level: 4 - Moderate Julienne Gordon MD February 17, 2024 10:07 AM documented in this encounter [facility] 02-13-2024 Telephone encounter Note Forms faxed back to [employer]. Called and spoke with patient. She is feeling better with the pump. Able to eat and keeping food/fluids down. Bibiana Hernandes RN [facility] 02-13-2024 Miscellaneous Notes Forms faxed back [...] signature documented in this encounter [facility] 02-13-2024 Telephone encounter Note Signed and to nurse desk. Please call patient to see how she's doing. Danii Weinberg APRN.CNP [facility] 02-12-2024 Telephone encounter Note Received fax form for [employer] for plan of care for hyperemesis. Signature is needed from Danii Carter. Form on her desk for signature [facility] 02-09-2024 Telephone encounter Note 9w1d [employer] nurse called to report that there was an error in the amount of the Zofran loading dose. States it may have been a ground defence officer error in her chart. She gave her 2 MG Zofran loading dose instead of 3 MG. Patient did well with the 2 MG dose. FYI only. Bibiana Hernandes RN [facility] 02-09-2024 Miscellaneous Notes 9w1d [employer] nurse called to report that there was an error in the amount of the Zofran loading dose. States it may have been a ground defence officer error in her chart. She gave her 2 MG Zofran loading dose instead of 3 MG. Patient did well with the 2 MG dose. FYI only. Bibiana Hernandes RN documented in this encounter [facility] 02-04-2024 Telephone encounter Note Orders were faxed to [facility] and [facility] Outpatient infusion. Please check with patient or hospital that she has been scheduled. Bibiana Hernandes RN [facility] 02-04-2024 Miscellaneous Notes Orders were faxed to [facility] and [facility] Outpatient infusion. Please check with patient or hospital that she has been scheduled. Bibiana Hernandes RN Patient needs Zofran pump. Form filled out and to nurses' desk. Also recommend IV fluids on Friday at [facility]. Please assist in scheduling. Danii Weinberg APRN.CLINICAL MATERIAL HANDLER documented in this encounter [facility] 02-04-2024 Telephone encounter Note Referral to [facility]. Sent to [place] team to assist with scheduling. [facility] 02-04-2024 Miscellaneous Notes Referral to [facility]. Sent to [place] team to assist with scheduling. documented in this encounter [facility] 02-04-2024 Telephone encounter Note Patient needs Zofran pump. Form filled out and to nurses' desk. Also recommend IV fluids on Friday at [facility]. Please assist in scheduling. Danii Weinberg APRN.EMRE [facility] 02-04-2024 History of Present illness Narrative Results Engineer offered: Patient declines. OB point of care [...] Your guide to a health and the Row Boss. Discussed hemoglobin electrophoresis. Patient: Declines Reviewed midwifery and sales and distribution clerk services that are available. 2) Screening: Hemoglobin [...] [] COVID vaccine [] declined [] TDaP -36 [] declined First trimester: [x] Dating US [...] weeks): [] Consent [] Contraception - [] Medical Data Analyst Third trimester (36-40 weeks): [] GBS [] [...] placed. 10/30/21-Growth US at 32 weeks. Continue Jacob injections. Kanwal Chow APRN.CNM 08/14/21 - will be started progesterone injections - Yobani Darby MD 06/12/2021 Patient delivered her previous child at 33 weeks due to PPROM. She states she fell 1 week prior to the labor. Discussed [place]. Patient is advised to watch the video and discuss her delivery and the possibility of medication during with Dr. Alfredo at her new OB visit. TKRN Obesity Affecting in First Trimester - 02/04/2024 Comment: Pre BMI 33 Anxiety During - 02/04/2024 Depression Affecting - 02/21/2020 Comment: Currently unable to keep Cymbalta or Vistaril down with vomiting. Sees [id number] for counseling. Denies thoughts of self harm or harming others. Discussed need to control nausea so medications can be taken Family History of Spina Bifida - 06/12/2021 Comment: 02/04/24 Taking PNV. 06/12/2021 Father of the baby's aunt with spina bifida. Patient declines aneuploidy screening and genetic carrier screening testing.Vanessa Dela Cruz RN Tetrahydrocannabinol (Thc) Use Disorder, Mild, Abuse [...] age 18 months. She last saw her php mysql developer Dr. Lay at [facility] at age 19. Was cleared for participation in sports by cardiology as a teenager. She states she does not take antibiotics prior to dental procedures.TKRN 09/04/20 Records release signed to obtain echocardiogram from [facility]. Had 33 week delivery without complication in past Follow up in 4 weeks or sooner prn. Plan for NT scan between 12w0d and 13w6d gestation. Danii Weinberg APRN.CLINICAL MATERIAL HANDLER documented in this encounter [facility] 02-03-2024 Instructions Danii Weinberg APRN.CNP - 02/03/2024 1:58 PM EDT Images from the original note were not included. Please select the following link to access the [facility] Your Guide to a Healthy . [email or web address]/healthypregnancyguide MORNING SICKNESS IN by Shari Weiss M.D. for [employer] As you may already know, morning sickness can often be more appropriately called evening sickness or iyghk-aniiqy-hk-the-day sickness. While there are the elijah few, [...] prevent nausea from starting. vitamins and nausea: Pre-valerie vitamins can sometimes worsen nausea in . [...] medication, Doxylamine, is currently marketed as an feza-nly-nnjrknt sleeping pill. Ask your practitioner if creating a vitamin B6/Doxylamine combination with hhie-rbl-tbamzvb medications would be safe for you. Prescription [...] to help control my nausea and vomiting? [employer] has a helpful fact sheet on nausea in with recommendations. You can review it here: https://1.618 Technology.org/fact-she ets/esobws-pcimdgcz-solsyfyop-nvp /pdf/. Also, eating small meals often, drinking [...] but the effects of ondansetron on a are not known. If ondansetron use is [...] . For more information, please see the MotherToBaby fact sheet Paternal Exposures at https://mothertobaby.org/fact-she ets/ilhiosrm-uykfbxhuw-tsffrppyg/ pdf/. Thank you for your interest in Women's Behavioral Health at [facility] [place]. Your provider has referred you for counseling services. Below you will find a list of options. Psychotherapy Services at [facility] Call Behavioral Health Access Line at [phone] to schedule Individual psychotherapy In-person or virtual Wait time for first evaluation may be 12 or more weeks. Wait list spots may be available. Due to the high volume of patients this option is recommended if you are looking for short term acute symptom coping strategies. 0-624-7-POUE1WXQR - [place] Maternal Mental Health Hotline If you are in suicidal crisis, please call or text 0-913-866-TALK ( ) or visit the National Suicide Prevention Lifeline website. mchb.[facility].gov If you are in crisis, call 911 or go to your nearest Emergency Department Here are some links for wonderful Providers here in the community and surrounding areas. Do not hesitate to contact their offices, many are offering virtual visits during this time. Psychotherapy Services outside of [facility] Support International Online Provider Directory https://Naiscorp Information Technology Services/ - can assist in finding providers in your area that might be more extensive then the list below. [facility] - [place], [place] [address] [place] [address] [facility] [address] [place] [address] [facility] [address] [place] [address] [facility] [address] [place], [place] [id number] Kevin Matamoros MD [address] [place] [address] [facility] [address] [facility], [address] [place] [address] [facility] [address] [place] [address] [facility] Services [place] / [place] [phone]/ [phone] Nela Lisa [address] [facility] [address] [facility] [phone] A[facility] of Counseling and Mediation [place] / [place] [phone] [facility] [address] [place] [address]/ [facility] [phone] Chel Matos, MICHAEL, CLC [facility] Workshops, telehealth and at home visits. [phone] Humanistic counseling center 20 locations [place], [place], [place], [place], [place], [place], [place], [facility], [place], [place], [place], [place], [place], [place], [facility], [place], [place] ,[facility], [place], [place],[facility], [facility], [place], [facility], [facility], [place] www.NantWorks.[facility] [phone] Psychotherapy resources outside of [facility] are listed below [facility] Web: https://www.Novopyxis/ Support International Online Provider Directory https://[employer] Services/ [facility] https://[employer]/ Partners for Behavioral Health and Wellness Web: https://Kidaptive/ Moobia for Effective Living Web: https://Adynxx.DySISmedical/ [employer] Web: https://tribr/location/[place]/ [facility] Web: https://www.tabulateberger hospitalWatsi.or / [facility] Web: https://Pro V&V.org/ Recovery Resources Mental health and substance abuse help Web: https://www.ReTel Technologiess.org & RESOURCES Support International Direct peer support and connection to professional resources Non-Emergency Helpline Phone: / Text: [phone] Web: https://www..net/ Online Provider Directory: https://Na[employer] Services/ Online Support Meetings: https://www..net/get-he lp/fos-jhyadi-usmukxx-meetings/ JODI Baby and Mobile Application Engineer Services Web: https://www.Good4U/ [employer] Expert information on medication use during and Text: [phone] Web: https://1.618 Technology.org/ NATIONAL REGISTRY FOR PSYCHIATRIC MEDICATIONS Currently studying the safety of antidepressants, ADHD medications and atypical antipsychotics taken during TO PARTICIPATE CALL TOLL-FREE: Web: https://womensmentalhealth.org/re search/pregnancyregistry/ Support Groups: [facility]- Follow on facebook Baby Bistro support group led by [facility] department Resilient Mamas - Support Group Resilatrium health stanlymas.org The POEM support group [phone] Www.poemonline.org Follow on facebook - ZACH hoffmann chapter Online support meetings PSI https://www..net/get-he lp/nhb-mhleym-rnghlcj-meetings/ [facility] mommy and me virtual support group 11:30-1pm Support for mothers and new babies and toddlers [place] childbirth education: Childbirth @cc.org or call [phone] CRISIS: CRISIS HOTLINE [phone], 911 or go to the nearest . [facility] [phone] / [facility] [phone] https://www.[facility].org Crisis text line text the word HOME to [address] [facility] [address] [facility] [address] www.Octopusapp Myesha Miranda clinical counseling [address] [address] www.Coronado Biosciences [phone] Holding space psychotherapy Tamaar Beyeralfredo SHOP ASSISTANT CONTROL CLERK REPAIRS-S [address] [facility] www.Code Fever [phone]/ [place] [phone] They all offer virtual. All work with trauma Support groups Online support meetings PSI https://www..net/get-he lp/hus-tqzooq-pqhsnua-meetings/ Here are the support groups they offer: Support of parents of 1 to 4 years old children POEM ( Outreach and Encouragement for Moms) offers free support for mothers experiencing depression, anxiety, and other mood and anxiety disorders. Masks are recommended but not required. No pre-registration required. Babies in arms welcome. meetings now take place on the and Friday of each month Location: [facility] [address] [place] [address] Room 122 (library room) 7-8:00 p.m. When you enter the mandaeism parking lot off of [address], the entrance door closest to our meeting room is on the front of the building toward the right. For those who are more comfortable with a virtual platform, PO offers online support group options several days of the week. To register for an online group or to find out more about POEM, website at: https://[place]ohio.org/get-help/[facility] hospitalsqru-kbjyfu-hgjguk/poem-services/ offer a confidential helpline: private Facebook group is called ZACH Hoffmann Chapter Here are the groups they offer: Traumatic childbirth resources: Http://pattch.org/ https://www.PombaistephanySocialRadar/ Name Location (s) Phone # (s) Services Website [facility] [address] [facility] [phone]; [address] [phone] In-Person GROUPS INDIVIDUAL THERAPY MATERNAL-INFANT MENTAL HEALTH MEDICATION MANAGEMENT PLAY AND ART THERAPY TELETHERAPY https://www.Novopyxis/s ervices/ [place] of Kalyani HOFFMANN? [address] [address] ? [address], [address] [place], [place] [address] ? [place] [address] [address]? Grief Support Groups Individual Grief Counseling Spiritual Care Memorial Events https://sruthi.st. [facility].org/grief-services [facility] [address] [place], [place] [address]; ; Email: conrado@3rd Planet Women's Mental Health; Couples Counseling; Trauma (EMDR); Stress Management; Mood and Anxiety Related Disorders- and much more https://www.Banyan Biomarkers.com/ LifeStance Numerous as they have contract providers: access website to find specific providers near you Counseling including CBT and EMDR as well as many more modalities; Medication Management; Telehealth and In-Person https://tribr/ Partners for [facility] [address] [place], [place] [address]; [phone] Personal, Family and Group Therapy; Psychological Testing and Diagnosis; Medication Management; Life and Career Coaching; Psychoanalysis; Literacy Testing; Yoga and Meditation [email or web address]/ Fit [facility] [address] [facility] [address], [place] [address] [address] ; [address], [address] [place] [address]; Office # for both sites: Individual and Couples Counseling [email or web address].[email or web address]/ [email or web address].html OCD & Anxiety [facility] [address] [facility], [address], [place] [address]; Specialize in Cognitive-Behavioral Therapy (CBT) for the treatment of anxiety disorders across the lifespan. TELEHEALTH ONLY. [email or web address] [facility] [address] 6th [place], [address] [place] [address] [facility] [place], [address] [place] [address] [facility] [place], [address] [place] [address] [facility] [place], [address], [address] [place], [address] [place] [address] [place], [place], [id number] Transportation Services To minimize patient barriers, [facility] provides transportation services to patients who qualify. If you are unable to get to your appointment at any of our facilities, please let us know. Need help now? Stop by one of our walk-in clinics to establish behavioral health care. Counseling Indvidual, Group, Couples and Family Counseling and EMDR. Medication Management Case Management benefits applications housing assistance Substance abuse treatment Medication assisted treatment [email or web address] hospitalinc.or g/mental-health/ [facility] OFFICE AT [facility] [address] [place] [address] [facility] OFFICE [address] [place] [address] [facility] OFFICE [address] [place] [address] [facility] OFFICE (at Health System) [address] [place] [address] [facility] EXCHANGE PROGRAM & HIV SCREENING [address] [place] [address] [facility] [facility] [address] [place] [address] Behavioral Health Urgent Care: [facility] Counseling Indvidual and Group Medication Management Case Management benefits applications housing assistance Substance abuse treatment Medication assisted treatment Employment Services/ Job Training [email or web address]/ [facility] [address] [place], [place] [address]: P: [phone] [address] [facility], [address], [place], [place] [address] P: [phone] Our services include: Addiction Mental Health Treatment Assessment Psychiatry Medical Care Employment Housing Drug and Alcohol Prevention HIV/AIDS Prevention [email or web address]/ [facility] [place] [address] [facility] [address] [place] [address] [address] [place], [place] [address] [place] [address] [place] [address] [place] [address] [facility] [address] [place] [address] [place] [address] [place] [address] TMS Therapy/ Counseling Psychocological Testing for ADHD Medication Management In-Person/ Telemedicine [email or web address] ents-depression Memory [facility] Psychological services [address], [place] [address] Neuropsychological Testing For ADHD [email or web address]/ [facility] Main Office [address] [place] [address] [id number] Providing kbpx-sh-eqou and telehealth services. Adult Case Management Community Education and Prevention Employment Outpatient Treatment - Counseling & Psychotherapy Psychiatric Services [email or web address]://[email or web address].[email or web address].[email or web address]/ [facility] [address] [place] [address] [place] [facility] [address] [place] [address] Virtual Appointments! Now offering safe and convenient virtual client appointments to anyone in [place]! Individual Therapy Couples/Relationship Therapy Trauma/EMDR Therapy Art Therapy Play Therapy Advanced Clinical Specialist Support: Parenting Skills, Parent Child Interaction Therapy, Parent Infant Interaction Therapy Meditation Dietitian/Plastic Straightening Roll Operator Services Group Therapy Yoga [email or web address] Alicia Brody [phone] Private Practice: Telehealth Only Specializes in EMDR for Trauma None documented in this encounter [facility] 01-30-2024 Telephone encounter Note Done Yobani Darby MD [facility] 01-30-2024 Miscellaneous Notes Done Yobani Darby MD Patient is agreeable. She is not taking the Vistaril. Thank you. I recommend Glo. Would she try this? Yobani Darby MD [...] New OB on 02/03 with . Johanna Archer RN documented in this encounter [facility] 01-30-2024 Telephone encounter Note Patient is agreeable. She is not taking the Vistaril. Thank you. [facility] 01-30-2024 Telephone encounter Note I recommend Diclegis. Would she try this? Yobani Darby MD [facility] 01-30-2024 Telephone encounter Note Patient called [...] increase nausea. Bibiana Hernandes RN [facility] 01-30-2024 Telephone encounter Note Zofran sent Yobani Darby MD [facility] 01-30-2024 Telephone encounter Note LMP 12/07/23, approximately 7w5d. She has upcoming New OB on 02/03 with [facility]. Johanna Archer, RN [facility] 12-26-2023 Telephone encounter Note BV positive. To treat with Flagyl 500mg PO BID for 7 days. 1) No alcohol during treatment and for 24 hours after last dose. 2) No intercourse during treatment. 3) Probiotic by mouth once daily for 30 days or as needed. Gisella Goldman APRN.EMRE [facility] 12-26-2023 Miscellaneous Notes BV positive. To treat with Flagyl 500mg PO BID for 7 days. 1) No alcohol during treatment and for 24 hours after last dose. 2) No intercourse during treatment. 3) Probiotic by mouth once daily for 30 days or as needed. Gisella Goldman APRN.EMRE documented in this encounter [facility] 12-25-2023 History of Present illness Narrative Kimberly [...] external genitalia normal, normal Bartholin's glands, urethra, [place]'s glands, no vulvar lesions, no cervical lesions, good vaginal support, physiologic discharge present, normal appearing perineal body and perianal region ASSESSMENT/PLAN: 1. Screening for STDs (sexually transmitted diseases) - ICD9: V74.5, ICD10: Z11.3 (primary diagnosis) - GONORRHEA/CHLAMYDIA NAAT 2. Vaginal irritation - ICD9: 623.9, ICD10: N89.8 - MATHIEU/TRICHOMONAS NAAT - BACTERIAL VAGINOSIS NAAT Will notify patient of test results. Gisella Goldman APRN.CNP Medical Decision Making: Problems: Moderate: New problem with uncertain prognosis Data: Unique test(s) ordered: 3+ Risk: Low: Low risk from testing/treatment Medical Decision Making Level: 4 - Moderate documented in this encounter [facility] 10-20-2023 History of Present illness Narrative [...] MD documented in this encounter [facility] 09-24-2023 History of Present illness Narrative Episode Visit Count: 4 Therapist That Will Accept/Oversee The Plan Of Care: Kanwal Villasenor Start of Care Date: 09/10/23 Onset Date: [...] anterior, peroneals, and achilles x 8minutes with romelia pt. supine Skilled Intervention: Manual skills to improve joint mobility, ROM, and decrease pain. Utilized anatomy knowledge of the therapist, and assessment of patient's response to intervention. Billing Therapeutic Exercise Treatment Minutes: 15 Manual TherapyTreatment Minutes: 8 Skilled Treatment Time Minutes (timed and untimed codes): 23 Total Session Time (minutes): 23 Session Start Time : 1714 Session Stop Time : 1737 VARUN Gallegos PT documented in this encounter [facility] 08-04-2023 History of Present illness Narrative Radiology [...] PM documented in this encounter [facility] 06-26-2023 History of Present illness Narrative Subjective The history is provided by the patient. No language asst was used. HPI Kimberly Jeong is a [...] have confirmed and edited as necessary, the [facility] Review of Systems Constitutional: Positive for malaise/fatigue. [...] detail warranting prompt ER evaluation. Keyana Thakkar APRN.EMRE documented in this encounter [facility] 06-03-2023 Instructions Lauryn Goetz APRN.CNP - 06/03/2023 7:34 AM EDT - Eat [...] meal. documented in this encounter [facility] 06-03-2023 History of Present illness Narrative Results Engineer offered: Patient declines. Harris is a 27 year old who presents [...] L2 SAB0 IAB0 Ectopic0 Multiple0 Live Births2 Vp Director Of Creative Strategy History LMP: 04/16/2023 (Exact Date), Having periods Age at Menarche: Age at First : Age at Menopause: Vp Director Of Creative Strategy History Comments: Sexual Activity: Yes; Male Contraception: [...] external genitalia normal, normal Bartholin's glands, urethra, [place]'s glands, no vulvar lesions, no cervical lesions, [...] one year or sooner as needed Lauryn Goetz APRN.CLINICAL MATERIAL HANDLER documented in this encounter [facility] 04-17-2023 History of Present illness Narrative [...] ANKLE GENERAL 3V AP/LAT/OBL RIGHT Duane Higuera APRN.CNP documented in this encounter [facility] 11-11-2022 Miscellaneous Notes Patient will be follow up with Dr. Carla sellers. [place] Ma Sent mychart message to pt as well and notified her that PCP has appt at 7:20 pm. Spot held, wait pt response. [place] Ma Pt scheduled MyChart appt with Rishabh Duran CNP to discuss iron levels- pt is to schedule an appt with Dr. Aguirre or Adalberto to discuss this. TC to pt, left message for pt to return call to office.. Please assist pt with scheduling appt with Dr. Aguirre or Adalberto to discuss. documented in this encounter [facility] 10-01-2022 Miscellaneous Notes Pt requesting referral be faxed to [facility]. This has bee completed and faxed to [phone]. Pt notified via [facility]. [place] Ma Pt notified that referral has been placed. Asked if pt wanted to stay within [facility] or stay local with [facility]. If pt decides locally, we will need to fax referral paperwork to [facility] and update pt. Pt made aware she will have to contact outside [facility] to schedule. Wait pt response. [place] Ma OK for ENT referral Surjit Aguirre MD documented in this encounter [facility] 09-02-2022 Miscellaneous Notes Pt agreeable to 3:40 appt. Rescheduled. [place] Ma Due to pt missing appt, offered her 3:40 pm or 7:40 pm VV for medication f/u. [place] Ma documented in this encounter [facility] 09-02-2022 History of Present illness Narrative Chief Complaint Patient presents with: Medication Follow-up HPI Kimberly Jeong is a 26 year old female who presents here today for medication follow up. She is working at [employer] and has 2 little boys ages 2 and 8 months. Depression/KAMILA: Is taking Cymbalta 60 mg daily, Abilify 2 mg daily and Vistaril 50 mg 2 pills BID prn. She feels this regimen is working well for her along with counseling through [place] [address] whom prescribes her medications. She was seen [...] reviewed Appointment on 08/28/2022 Component Date Value [place] Test 08/28/2022 Negative Office Visit on 08/19/2022 [...] Past Histories independently gathered by the clinical pit crew support worker and the remaining scribed note accurately describes [...] Ma documented in this encounter [facility] 08-28-2022 History of Present illness Narrative [...] history is provided by the patient. No language asst was used. URI She complains of cough. [...] MD documented in this encounter [facility] 08-19-2022 Instructions Kanwal Wiggins APRN.[facility] - 08/19/2022 8:33 AM EST Next to [...] to ear infections. Children in group child care nurse settings have a higher chance of passing [...] her pain medicine. Acetaminophen and ibuprofen are rmlf-rbs-lbvnxdt (OTC) pain medicines that may help decrease much of the pain. Be sure to use the right dosage for your child s age and size. Don t give aspirin to your child. There are also ear drops that may relieve ear pain for a short time. Ask your lab instructor whether these drops should be used. There [...] ill, it s important to call your lab instructor. If your child s condition doesn t improve within 3 days, or worsens at any time, call your lab instructor. Your lab instructor may wish to see your child and may prescribe an antibiotic to take by mouth, if one wasn t given initially. If an antibiotic was already started, your child may need a different antibiotic. Be sure to follow your lab instructor s instructions closely. If an antibiotic was [...] feeling well, as long as a child care nurse provider or someone at school can give them their medicine properly, if needed. If your child needs to travel in an airplane, or wants to swim, contact your lab instructor for specific Instructions. Are there complications from [...] talk about other treatment options with your lab instructor. documented in this encounter [facility] 08-19-2022 History of Present illness Narrative This note was created using Twengariter. Subjective Kimberly Jeong is a 26 year [...] history is provided by the patient. No language asst was used. URI She complains of cough. [...] if symptoms persist or worsen. Kanwal Wiggins APRN.EMRE documented in this encounter [facility] 05-16-2022 History of Present illness Narrative Patient identified by name and date of . Kimberly Jeong is here for a Depo Provera injection. Patient brought medication. Date last injected: 02/21/22 Depo-Provera, 150 mg, administered IM left upper quadrant gluteus, Lot # [id number], expiration date 01/2024. Depo-Provera was given without [...] RN documented in this encounter [facility] 03-22-2022 Instructions Rosario Garcia APRN.CNM - 03/22/2022 10:53 AM EDT Ibuprofen 800 mg by mouth every 8 hours to help with bleeding documented in this encounter [facility] 03-22-2022 History of Present illness Narrative [...] L2 SAB0 IAB0 Ectopic0 Multiple0 Live Births2 Vp Director Of Creative Strategy History LMP: 05/04/2021 (Exact Date), Recent Age at Menarche: Age at First : Age at Menopause: Vp Director Of Creative Strategy History Comments: Sexual Activity: Yes; Male Contraception: [...] which included preparing to see the patient, nnrv-[id number] patient care, completing clinical documentation, counseling and educating the patient/family/caregiver and ordering medications, tests, or procedures Medical Decision Making Rosario Garcia APRN.CNM documented in this encounter [facility] 03-15-2022 Miscellaneous Notes Bleeding can be [...] RN documented in this encounter [facility] 03-01-2022 History of Present illness Narrative Chief Complaint No chief complaint on file. HPI Kimberly Jeong is a 26 year old female who presents here today for a 2 month follow up. Pt here today for a 3 month follow up. 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 Following with [facility] THIRD STEEL POURER. Depression - Was started back on her [...] MD documented in this encounter [facility] 02-21-2022 History of Present illness Narrative Patient identified by name and date of . Kimberly Jeong is here for a Depo Provera injection. Patient brought medication. Date last injected: first injection - negative test. Depo-Provera, 150 mg, administered IM right upper quadrant gluteus, Lot # [id number], expiration date 10/15/2023. Depo-Provera was given without incident. Date of last menses: Patient's last menstrual period was 05/04/2021 (exact date). Irregular bleeding - No Menses ceased - Yes STD prevention discussed: Yes Patient instructed to return to clinic in 12 weeks. [email or web address] [email or web address]-Provera%[email or web address] [email or web address].pdf Provider Yobani Darby MD was present in office at time of injection. Johanna Archer RN documented in this encounter [facility] 02-19-2022 History of Present illness Narrative [...] Menstrual pattern prior to : Regular periods [place] since delivery: Resumed Depression: denies symptoms of [...] external genitalia normal, normal Bartholin's glands, urethra, [place]'s glands, no vulvar lesions, no cervical lesions, [...] APRN.CNM documented in this encounter [facility] 01-18-2022 History of Present illness Narrative EARLY VISIT Kimberly Jeong is a 26 year old here for 2 week visit. Delivery Summary: Delivery information: Delivery date 01/05/2022 Delivery type C section Delivering clinician : Name Clay MARIN Gender Male ROS: General: [...] harming myself has occurred to me. 0 Mascot Depression Scale Total 6 Feeling nervous, anxious [...] erythema Sleep: no sleep concerns, feels rested [place] since delivery: Not resumed Emotional support: Yes [...] needed documented in this encounter [facility] 01-07-2022 History of Present illness Narrative Patient delivered via by Dr. Holley on 01/05/22 at [facility]. See OB history. Luz Cody RN documented in this encounter [facility] 01-04-2022 Miscellaneous Notes 35w6d Patient calling [...] RN documented in this encounter [facility] 12-31-2021 Miscellaneous Notes NASEEM-S: Kimberly Jeong [...] week 3) GBS next visit 4) Continue Jacob till 36 weeks Kanwal Chow APRN.CNM documented in this encounter [facility] 12-31-2021 Instructions Kirsten Talbot MA - 12/31/2021 2:17 PM EDT SEQUENTIAL SCREENINGS The [facility] offers sequential screenings for women who [...] It will require an appointment with our warehouse technician. This is not an ultrasound performed [...] the above symptoms, contact our office at [phone] and ask to speak with a nurse. After hours, you can call doctors registry at [phone] OR call [facility] at [phone] and ask to have the doctor dish up person paged. If you consider this an emergency, dial or go to your nearest emergency department. NEED HELP? Are you dealing with a violent or abusive relationship? Are you a victim of rape or sexual assult? Call [facility] ([place]) 24 hour Crisis Hotline: 982.781.7954 or 628-700-9158. MANUAL Your Guide to a Healthy manual is now on-line. Visit [facility].org/HealthyPregna ncyGuide to download your free copy documented in this encounter [facility] 12-27-2021 Miscellaneous Notes Kimberly Jeong is [...] Continue Jacob injections RTO- Friday for MUNIR Garcia APRN.CNM documented in this encounter [facility] 12-27-2021 Instructions Kirsten Talbot MA - 12/27/2021 2:26 PM EDT SEQUENTIAL SCREENINGS The [facility] offers sequential screenings for women who [...] It will require an appointment with our warehouse technician. This is not an ultrasound performed [...] the above symptoms, contact our office at [phone] and ask to speak with a nurse. After hours, you can call doctors registry at [phone] OR call [facility] at [phone] and ask to have the doctor dish up person paged. If you consider this an emergency, dial 3-1-2 or go to your nearest emergency department. NEED HELP? Are you dealing with a violent or abusive relationship? Are you a victim of rape or sexual assult? Call [facility] ([place]) 24 hour Crisis Hotline: 987.150.9648 or 631-959-5021. MANUAL Your Guide to a Healthy manual is now on-line. Visit [facility].org/HealthyPregna ncyGuide to download your free copy documented in this encounter [facility] 12-27-2021 Miscellaneous Notes Thanks for the update! Rosario Garcia APRN.CNM Appointment scheduled for today at 2:15. documented in this encounter [facility] 12-19-2021 History of Present illness Narrative [...] treatment. documented in this encounter [facility] 12-18-2021 Miscellaneous Notes Scheduled and notified. Pt returned call. She can be called back to schedule. Left message for patient to return call. When patient calls, please message and then warm transfer to [facility] PSR for scheduling. Sallie Goodwin Patient needing 4 total doses of iron sucrose-one a week. Please contact patient to schedule. Blood management order placed yesterday. Luz Cody RN Iron studies returned. Please assist patient with scheduling ordered iron infusions. Rosario Garcia APRN.CNM Per Shirley in [facility] we need to get back Iron levels that were drawn today. Note I have routed this to [facility] PSR pool. Please keep phone note open until labs are back and patient is scheduled. ----- Message from Rosario Garcia APRN.CNM sent at 12/17/2021 1:35 PM EDT ----- Results reviewed. Referral placed to blood management for possible IV iron supplementation. Iron studies pending. Please assist patient with scheduling. Rosario Garcia APRN.CNM documented in this encounter [facility] 12-17-2021 Miscellaneous Notes Kimberly Jeong is [...] - URINE OB DIP B/O - Continue [place] injections 2. Anemia complicating , third trimester - ICD9: 648.23, 285.9, ICD10: O99.013 - Blood management referral placed for IV FE PTL precautions reviewed. RTC in 2 weeks or sooner if needed. EMY Ellington APRN.CNM documented in this encounter [facility] 12-17-2021 Instructions Edvin Skaggs Ma - 12/17/2021 1:17 PM EDT SEQUENTIAL SCREENINGS The [facility] offers sequential screenings for women who [...] It will require an appointment with our warehouse technician. This is not an ultrasound performed [...] the above symptoms, contact our office at [phone] and ask to speak with a nurse. After hours, you can call doctors registry at [phone] OR call [facility] at [phone] and ask to have the doctor dish up person paged. If you consider this an emergency, dial 9-1-3 or go to your nearest emergency department. NEED HELP? Are you dealing with a violent or abusive relationship? Are you a victim of rape or sexual assult? Call [facility] ([facility] 24 hour Crisis Hotline: 303.506.4558 or 427-076-8147. MANUAL Your Guide to a Healthy manual is now on-line. Visit [facility].org/HealthyPregna ncyGuide to download your free copy documented in this encounter [facility] 12-04-2021 Miscellaneous Notes Toni Jeong is [...] APRN.CNM documented in this encounter [facility] 12-04-2021 Instructions Nallely Mcknight MA - 12/04/2021 2:33 PM EDT SEQUENTIAL SCREENINGS The [facility] offers sequential screenings for women who [...] It will require an appointment with our warehouse technician. This is not an ultrasound performed [...] the above symptoms, contact our office at [phone] and ask to speak with a nurse. After hours, you can call doctors registry at [phone] OR call [facility] at [phone] and ask to have the doctor dish up person paged. If you consider this an emergency, dial 9-1-9 or go to your nearest emergency department. NEED HELP? Are you dealing with a violent or abusive relationship? Are you a victim of rape or sexual assult? Call [facility] ([place]) 24 hour Crisis Hotline: 414.259.5748 or 612-015-7362. MANUAL Your Guide to a Healthy manual is now on-line. Visit [email or web address] to download your free copy documented in this encounter [facility] 11-13-2021 Miscellaneous Notes KJ - No VB/LOF/ctxs. Reports good FM A&P: 28wk labs today Tdap Declines LARC, considering Mirena IUD H/o PTD - continue [place] Depression - continue prozac Reviewed PTL & FM precautions Yobani Darby MD documented in this encounter [facility] 11-13-2021 Niko Alanis Ma - 11/13/2021 10:14 AM EDT SEQUENTIAL SCREENINGS [facility] offers sequential screenings for women who [...] It will require an appointment with our warehouse technician. This is not an ultrasound performed [...] the above symptoms, contact our office at [phone] and ask to speak with a nurse. After hours, you can call doctors registry at [phone] OR call [facility] at [phone] and ask to have the doctor dish up person paged. If you consider this an emergency, dial 9--4 or go to your nearest emergency department. NEED HELP? Are you dealing with a violent or abusive relationship? Are you a victim of rape or sexual assult? Call [facility] ([place]) 24 hour Crisis Hotline: 526.928.3794 or 204-006-1843. MANUAL Your Guide to a Healthy manual is now on-line. Visit [email or web address] to download your free copy documented in this encounter [facility] 07-19-2021 Note HNO ID: [id number] Author: Boubacar Shultz DO Service: ? Author Type: Physician Type: Progress Notes Filed: 07/20/2021 10:20 AM Note Text: Patient presents for CVS in the setting of an increased NT. Risks, benefits, and alternatives were reviewed. Informed consent was signed. Kimberly is Rh positive. See US reports for procedure details. Boubacar Shultz DO [facility] 07-04-2020 History of Past i llness Narrative [...] 02/25/20 - +UTI, will need recheck. Lauryn Goetz APRN.CLINICAL MATERIAL HANDLER Nausea and vomiting in 02/21/2020 08/22/2020 Overview: [...] encounter (statuses as of 11/08/2021) [facility] History of Past illness Narrative* Problem [...] 02/25/20 - +UTI, will need recheck. Lauryn Goetz APRN.CLINICAL MATERIAL HANDLER Nausea and vomiting in 02/21/2020 08/22/2020 Overview: [...] encounter (statuses as of 11/13/2021) [facility] History of Past illness Narrative* Problem [...] 02/25/20 - +UTI, will need recheck. Lauryn Goetz APRN.CLINICAL MATERIAL HANDLER Nausea and vomiting in 02/21/2020 08/22/2020 Overview: [...] encounter (statuses as of 12/05/2021) [facility] History of Past illness Narrative* Problem [...] 02/25/20 - +UTI, will need recheck. Lauryn Goetz APRN.CLINICAL MATERIAL HANDLER Nausea and vomiting in 02/21/2020 08/22/2020 Overview: [...] encounter (statuses as of 12/17/2021) [facility] History of Past illness Narrative* Problem [...] 02/25/20 - +UTI, will need recheck. Lauryn Goetz APRN.CLINICAL MATERIAL HANDLER Nausea and vomiting in 02/21/2020 08/22/2020 Overview: [...] encounter (statuses as of 12/17/2021) [facility] History of Past illness Narrative* Problem Noted Date Resolved Date Elevated glucose 07/04/2020 08/22/2020 Overview: 07/17/20- 3 hour GTT normal 07/04/20- Elevated 1 hour GCT at 138. Three hour ordered. Rosario Plotts, HEALTH INFORMATION SPECIALIST.CNM Anemia complicating , second trimester 07/04/2020 08/22/2020 Overview: 07/04/20- Hgb. 10.4 Started on oral iron supplementation. Will recheck CBC in 1 month. Rosario Garcia APRN.CNM Encounter for supervision of normal first in second trimester 06/06/2020 08/22/2020 Overview: 06/06/20 - It's a boy - XY!! UTI (urinary tract infection) in , ante 02/25/2020 08/22/2020 Overview: 02/25/20 - +UTI, will need recheck. Lauryn Goetz APRN.CLINICAL MATERIAL HANDLER Nausea and vomiting in 02/21/2020 08/22/2020 Overview: [...] encounter (statuses as of 12/18/2021) [facility] History of Past illness Narrative* Problem [...] 02/25/20 - +UTI, will need recheck. Lauryn Goetz APRN.CLINICAL MATERIAL HANDLER Nausea and vomiting in 02/21/2020 08/22/2020 Overview: [...] encounter (statuses as of 12/19/2021) [facility] History of Past illness Narrative* Problem [...] 02/25/20 - +UTI, will need recheck. Lauryn Goetz APRN.CLINICAL MATERIAL HANDLER Nausea and vomiting in 02/21/2020 08/22/2020 Overview: [...] encounter (statuses as of 12/25/2021) [facility] History of Past illness Narrative* Problem [...] 02/25/20 - +UTI, will need recheck. Lauryn Goetz APRN.CLINICAL MATERIAL HANDLER Nausea and vomiting in 02/21/2020 08/22/2020 Overview: [...] encounter (statuses as of 12/27/2021) [facility] History of Past illness Narrative* Problem [...] 02/25/20 - +UTI, will need recheck. Lauryn Goetz APRN.CLINICAL MATERIAL HANDLER Nausea and vomiting in 02/21/2020 08/22/2020 Overview: [...] encounter (statuses as of 12/27/2021) [facility] History of Past illness Narrative* Problem [...] 02/25/20 - +UTI, will need recheck. Lauryn Goetz APRN.CLINICAL MATERIAL HANDLER Nausea and vomiting in 02/21/2020 08/22/2020 Overview: [...] encounter (statuses as of 12/31/2021) [facility] History of Past illness Narrative* Problem [...] 02/25/20 - +UTI, will need recheck. Lauryn Goetz APRN.CLINICAL MATERIAL HANDLER Nausea and vomiting in 02/21/2020 08/22/2020 Overview: [...] encounter (statuses as of 12/31/2021) [facility] History of Past illness Narrative* Problem [...] 02/25/20 - +UTI, will need recheck. Lauryn Goetz APRN.CLINICAL MATERIAL HANDLER Nausea and vomiting in 02/21/2020 08/22/2020 Overview: [...] encounter (statuses as of 01/04/2022) [facility] History of Past illness Narrative* Problem [...] 02/25/20 - +UTI, will need recheck. Lauryn Goetz APRN.CLINICAL MATERIAL HANDLER Nausea and vomiting in 02/21/2020 08/22/2020 Overview: [...] encounter (statuses as of 01/07/2022) [facility] History of Past illness Narrative* Problem [...] 02/25/20 - +UTI, will need recheck. Lauryn Goetz APRN.CLINICAL MATERIAL HANDLER Nausea and vomiting in 02/21/2020 08/22/2020 Overview: [...] encounter (statuses as of 01/15/2022) [facility] History of Past illness Narrative* Problem [...] 02/25/20 - +UTI, will need recheck. Lauryn Goetz APRN.CLINICAL MATERIAL HANDLER Nausea and vomiting in 02/21/2020 08/22/2020 Overview: [...] encounter (statuses as of 01/18/2022) [facility] History of Past illness Narrative* Problem [...] 02/25/20 - +UTI, will need recheck. Lauryn Goetz APRN.CLINICAL MATERIAL HANDLER Nausea and vomiting in 02/21/2020 08/22/2020 Overview: [...] encounter (statuses as of 02/15/2022) [facility] History of Past illness Narrative* Problem [...] 02/25/20 - +UTI, will need recheck. Lauryn Goetz APRN.CLINICAL MATERIAL HANDLER Nausea and vomiting in 02/21/2020 08/22/2020 Overview: [...] encounter (statuses as of 02/19/2022) [facility] History of Past illness Narrative* Problem [...] 02/25/20 - +UTI, will need recheck. Lauryn Goetz APRN.CLINICAL MATERIAL HANDLER Nausea and vomiting in 02/21/2020 08/22/2020 Overview: [...] encounter (statuses as of 02/21/2022) [facility] History of Past illness Narrative* Problem [...] 02/25/20 - +UTI, will need recheck. Lauryn Goetz APRN.CLINICAL MATERIAL HANDLER Nausea and vomiting in 02/21/2020 08/22/2020 Overview: [...] encounter (statuses as of 03/01/2022) [facility] History of Past illness Narrative* Problem [...] 02/25/20 - +UTI, will need recheck. Lauryn Goetz APRN.CLINICAL MATERIAL HANDLER Nausea and vomiting in 02/21/2020 08/22/2020 Overview: [...] encounter (statuses as of 03/15/2022) [facility] History of Past illness Narrative* Problem [...] 02/25/20 - +UTI, will need recheck. Lauryn Goetz APRN.CLINICAL MATERIAL HANDLER Nausea and vomiting in 02/21/2020 08/22/2020 Overview: [...] encounter (statuses as of 03/22/2022) [facility] History of Past illness Narrative* Problem [...] 02/25/20 - +UTI, will need recheck. Lauryn Goetz APRN.CLINICAL MATERIAL HANDLER Nausea and vomiting in 02/21/2020 08/22/2020 Overview: [...] encounter (statuses as of 05/16/2022) [facility] History of Past illness Narrative* Problem [...] 02/25/20 - +UTI, will need recheck. Lauryn Goetz APRN.CLINICAL MATERIAL HANDLER Nausea and vomiting in 02/21/2020 08/22/2020 Overview: [...] encounter (statuses as of 08/07/2022) [facility] History of Past illness Narrative* Problem [...] 02/25/20 - +UTI, will need recheck. Lauryn Goetz APRN.CLINICAL MATERIAL HANDLER Nausea and vomiting in 02/21/2020 08/22/2020 Overview: [...] encounter (statuses as of 08/22/2022) [facility] History of Past illness Narrative* Problem [...] 02/25/20 - +UTI, will need recheck. Lauryn Goetz APRN.CLINICAL MATERIAL HANDLER Nausea and vomiting in 02/21/2020 08/22/2020 Overview: [...] encounter (statuses as of 08/28/2022) [facility] History of Past illness Narrative* Problem [...] 02/25/20 - +UTI, will need recheck. Lauryn Goetz APRN.CLINICAL MATERIAL HANDLER Nausea and vomiting in 02/21/2020 08/22/2020 Overview: [...] encounter (statuses as of 09/02/2022) [facility] History of Past illness Narrative* Problem [...] 02/25/20 - +UTI, will need recheck. Lauryn Goetz APRN.CLINICAL MATERIAL HANDLER Nausea and vomiting in 02/21/2020 08/22/2020 Overview: [...] encounter (statuses as of 09/02/2022) [facility] History of Past illness Narrative* Problem [...] 02/25/20 - +UTI, will need recheck. Lauryn Goetz APRN.CLINICAL MATERIAL HANDLER Nausea and vomiting in 02/21/2020 08/22/2020 Overview: [...] encounter (statuses as of 10/01/2022) [facility] History of Past illness Narrative* Problem Noted Date Resolved Date Elevated glucose 07/04/2020 08/22/2020 Overview: 07/17/20- 3 hour GTT normal 07/04/20- Elevated 1 hour GCT at 138. Three hour ordered. Rosario Garcia APRN.CNM Anemia complicating , second trimester 07/04/2020 08/22/2020 Overview: 07/04/20- Hgb. 10.4 Started on oral iron supplementation. Will recheck CBC in 1 month. Rosario Garcia APRN.CNMarek Encounter for supervision of normal first in second trimester 06/06/2020 08/22/2020 Overview: 06/06/20 - It's a boy - XY!! UTI (urinary tract infection) in , ante 02/25/2020 08/22/2020 Overview: 02/25/20 - +UTI, will need recheck. Lauryn Goetz APRN.CLINICAL MATERIAL HANDLER Nausea and vomiting in 02/21/2020 08/22/2020 Overview: [...] encounter (statuses as of 11/11/2022) [facility] History of Past illness Narrative* Problem Noted Date Diagnosed Date Resolved Date Elevated glucose 07/04/2020 08/22/2020 Overview: 07/17/20- 3 hour GTT normal 07/04/20- Elevated 1 hour GCT at 138. Three hour ordered. Rosario Garcia APRN.CNM Anemia complicating pregnanc y, second trimester 07/04/2020 08/22/2020 Overview: 07/04/20- Hgb. 10.4 Started on oral iron supplementation. Will recheck CBC in 1 month. Rosario aGrcia APRN.CNM Encounter for supervision of normal first in second trimester 06/06/2020 08/22/2020 Overview: 06/06/20 - It's a boy - XY!! UTI (urinary tract infection ) in , antepartum 02/25/2020 08/22/2020 Overview: 02/25/20 - +UTI, will need recheck. Lauryn Goetz APRN.CLINICAL MATERIAL HANDLER Nausea and vomiting in 02/21/2020 08/22/2020 Overview: [...] encounter (statuses as of 04/18/2023) [facility] History of Past illness Narrative* Problem [...] 02/25/20 - +UTI, will need recheck. Lauryn Goetz APRN.CLINICAL MATERIAL HANDLER Nausea and vomiting in 02/21/2020 08/22/2020 Overview: [...] encounter (statuses as of 04/30/2023) [facility] of Past illness Narrative* Problem [...] 02/25/20 - +UTI, will need recheck. Lauryn Goetz APRN.CLINICAL MATERIAL HANDLER Nausea and vomiting in 02/21/2020 08/22/2020 Overview: [...] encounter (statuses as of 06/03/2023) [facility] of Past illness Narrative* Problem [...] 02/25/20 - +UTI, will need recheck. Lauryn Goetz APRN.CLINICAL MATERIAL HANDLER Nausea and vomiting in 02/21/2020 08/22/2020 Overview: [...] encounter (statuses as of 06/26/2023) [facility] of Past illness Narrative* Problem [...] 02/25/20 - +UTI, will need recheck. Lauryn Goetz APRN.CLINICAL MATERIAL HANDLER Nausea and vomiting in 02/21/2020 08/22/2020 Overview: [...] encounter (statuses as of 06/27/2023) [facility] History of Past illness Narrative* Problem [...] 02/25/20 - +UTI, will need recheck. Lauryn Goetz APRN.CLINICAL MATERIAL HANDLER Nausea and vomiting in 02/21/2020 08/22/2020 Overview: [...] encounter (statuses as of 09/25/2023) [facility] History of Past illness Narrative* Problem [...] 02/25/20 - +UTI, will need recheck. Lauryn Goetz APRN.CLINICAL MATERIAL HANDLER Nausea and vomiting in 02/21/2020 08/22/2020 Overview: [...] encounter (statuses as of 10/21/2023) [facility] Supervision of high risk in third trimester- Primary Unspecified high-risk 28 weeks gestation of state, incidental Need for vaccination Need for prophylactic vaccination and inoculation against unspecified single disease [facility] Diagnosis 31 weeks gestation of - Primary state, incidental Supervision of high risk in third trimester Unspecified high-risk Anemia complicating , third trimester documented [facility]* Diagnosis Increased nuchal translucency space on ultrasound- Primary Abnormal findings on screening 33 weeks gestation of state, incidental [facility]* Diagnosis 33 weeks gestation of - Primary state, incidental Anemia complicating , third trimester Amniotic fluid index increased Nonspecific abnormal finding in amniotic fluid [facility] Diagnosis Anemia complicating , third trimester- Primary 33 weeks gestation of state, incidental [facility] Diagnosis Anemia complicating , third trimester- Primary [facility] Diagnosis 34 weeks gestation of - Primary state, incidental Acute bilateral low back pain without sciatica H/O delivery, currently with history of pre-term labor [facility]* Diagnosis 35 weeks gestation of - Primary state, incidental [facility] Diagnosis Anemia complicating , third trimester- Primary documented [facility]* Diagnosis Onset Date Resolution Status 35 weeks gestation of acute 36 weeks gestation of acute Anemia affecting a cute Arrest of descent, delivered, current hospitalization acute Delivery by section acute History of depression acute History of delivery acute Lactating mother acute POP (persistent occipitoposterior position) acute labor acute Short interval between pregn ancies affecting , antepartum acute Thickening of nuchal fold ac [place] Acute on chronic blood loss anemia [facility] Work Phone: Evaluation note* Diagnosis Single delivery by section- Primary delivery, without mention of indication, delivered, with or without mention of antepartum condition care and examination of lactating mother Encounter for screening for maternal depression documented in this encounter [facility] note* Diagnosis care and examination- Primary Routine follow-up documented in this encounter [facility] note* Diagnosis Initiation of Depo Provera- Primary General counseling for initiation of other contraceptive measures Encounter for management and injection of depo-Provera Surveillance of other previously prescribed contraceptive method [facility]* Diagnosis Anxiety with depression- Primary documented in this [facility]* Diagnosis Breakthrough bleeding on depo provera- Primary Metrorrhagia documented in this encounter [facility]* Diagnosis Encounter for management and injection of depo-Provera- Primary Surveillance of other previously prescribed contraceptive method documented in this encounter [facility]* Diagnosis Pharyngitis, unspecified etiology- Primary Acute otitis media, right Unspecified otitis media documented [facility] this encounter [facility]* Diagnosis Pharyngitis, unspecified etiology- Primary Globus sensation Gastrointestinal malfunction arising from mental factors [facility] Diagnosis Sore throat- Primary Acute pharyngitis Depression, unspecified depression type documented in this encounter [facility] note* Diagnosis Throat pain- Primary documented in this encounter [facility]* Diagnosis Injury of right lower extremity, initial encounter- Primary documented in this encounter [facility] note* Diagnosis Injury of lower leg, right, initial encounter- Primary [facility] Diagnosis Encounter for gynecological examination (general) (routine) without abnormal findings- Primary Sensation of pressure in bladder area Other specified disorders of bladder Class 1 obesity with body mass index (BMI) of 31.0 to 31.9 in adult, unspecified obesity type, unspecified whether serious comorbidity present documented [facility] this encounter [facility]* Diagnosis URI with cough and congestion- Primary Acute otitis media, right Unspecified otitis media Feared condition not demonstrated Person with feared complaint in whom no diagnosis was made documented in this encounter [facility] note* Diagnosis Unspecified injury of right ankle, subsequent encounter- Primary Sprain of unspecified ligament of right ankle, initial encounter [facility] Diagnosis Trochanteric bursitis of right hip- Primary Enthesopathy of hip region documented [facility] this [facility]* Diagnosis Screening for STDs (sexually transmitted diseases)- Primary Screening examination for venereal disease Vaginal irritation Unspecified noninflammatory disorder of vagina [facility] Diagnosis Encounter for supervision of high [...] anomalies [facility] Diagnosis Obesity affecting in first trimester, [...] disorder, mild, abuse [facility] Diagnosis TMJ dysfunction- Primary Temporomandibular joint disorders, unspecified [facility] Diagnosis 13 weeks gestation of - Primary state, incidental Encounter for supervision of high risk in first trimester, antepartum Obesity affecting in first trimester, unspecified obesity type Encounter for screening for nuchal translucency History of [facility] Encounter for screening for malformation using ultrasound- Primary 13 weeks gestation of state, incidental [facility] Diagnosis Thickening of nuchal fold- Primary History of viral myocarditis Personal history of other diseases of circulatory system H/O delivery, currently with history of pre-term labor Depression complicating in second trimester, antepartum History of delivery- Primary 18 weeks gestation of state, incidental [facility] Diagnosis Thickening of nuchal fold- Primary History of viral myocarditis Personal history of other diseases of circulatory system H/O delivery, currently with history of pre-term labor Depression complicating in second trimester, antepartum Injury of lower leg, right, initial encounter Injury of right ankle, subsequent encounter [facility] Diagnosis Thickening of nuchal fold- Primary History of viral myocarditis Personal history of other diseases of circulatory system H/O delivery, currently with history of pre-term labor Depression complicating in second trimester, antepartum Encounter for anatomic survey- Primary [facility] Diagnosis Thickening of nuchal fold- Primary History of viral myocarditis Personal history of other diseases of circulatory system H/O delivery, currently with history of pre-term labor Depression complicating in second trimester, antepartum 22 weeks gestation of - Primary state, incidental Encounter for supervision of high risk in first trimester, antepartum Obesity affecting in first trimester, unspecified obesity type [facility] Diagnosis Thickening of nuchal fold- Primary [...] shortening not found [facility] Diagnosis Thickening of nuchal fold- Primary History of viral myocarditis Personal history of other diseases of circulatory system H/O delivery, currently with history of pre-term labor Depression complicating in second trimester, antepartum History of labor- Primary Personal history of pre-term labor [facility] Diagnosis Thickening of nuchal fold- Primary History of viral myocarditis Personal history of other diseases of circulatory system H/O delivery, currently with history of pre-term labor Depression complicating in second trimester, antepartum High-risk in second trimester- Primary 23 weeks gestation of state, incidental Heart palpitations Palpitations Dizziness Dizziness and giddiness [facility] Diagnosis Thickening of nuchal fold- Primary History of viral myocarditis Personal history of other diseases of circulatory system H/O delivery, currently with history of pre-term labor Depression complicating in second trimester, antepartum Heart palpitations- Primary [facility] Diagnosis Thickening of nuchal fold- Primary History of viral myocarditis Personal history of other diseases of circulatory system H/O delivery, currently with history of pre-term labor Depression complicating in second trimester, antepartum [facility]pitations [facility] Thickening of nuchal fold- Primary History of viral myocarditis Personal history of other diseases of circulatory system H/O delivery, currently with history of pre-term labor Depression complicating in second trimester, antepartum History of delivery, currently - Primary with history of pre-term labor 24 weeks gestation of state, incidental [facility] Diagnosis Thickening of nuchal fold- Primary History of viral myocarditis Personal history of other diseases of circulatory system H/O delivery, currently with history of pre-term labor Depression complicating in second trimester, antepartum Palpitations- Primary 23 weeks gestation of [Z3A.23] state, incidental Palpitations [facility] Diagnosis Thickening of nuchal fold- Primary History of viral myocarditis Personal history of other diseases of circulatory system H/O delivery, currently with history of pre-term labor Depression complicating in second trimester, antepartum Palpitations [facility] Diagnosis Thickening of nuchal fold- Primary History of viral myocarditis Personal history of other diseases of circulatory system H/O delivery, currently with history of pre-term labor Depression complicating in second trimester, antepartum Sinus tachycardia [R00.0]- Primary Other specified cardiac dysrhythmias Palpitations [R00.2] Palpitations , unspecified gestational age [Z34.90] [facility] Diagnosis Thickening of nuchal fold- Primary History of viral myocarditis Personal history of other diseases of circulatory system H/O delivery, currently with history of pre-term labor Depression complicating in second trimester, antepartum Supervision of high risk in third trimester- Primary Unspecified high-risk 28 weeks gestation of state, incidental Need for vaccination Need for prophylactic vaccination and inoculation against unspecified single disease Obesity affecting in third trimester, unspecified obesity type [facility] Diagnosis Thickening of nuchal fold- Primary History of viral myocarditis Personal history of other diseases of circulatory system H/O delivery, currently with history of pre-term labor Depression complicating in second trimester, antepartum Abnormal glucose complicating - Primary Abnormal maternal glucose tolerance, complicating , childbirth, or the puerperium, unspecified as to episode of care [facility] Diagnosis Thickening of nuchal fold- Primary History of viral myocarditis Personal history of other diseases of circulatory system H/O delivery, currently with history of pre-term labor Depression complicating in second trimester, antepartum 31 weeks gestation of - Primary state, incidental Supervision of high risk in third trimester Unspecified high-risk History of delivery History of section Other postprocedural status Uterine size-date discrepancy, third trimester [facility] Diagnosis Thickening of nuchal fold- Primary History of viral myocarditis Personal history of other diseases of circulatory system H/O delivery, currently with history of pre-term labor Depression complicating in second trimester, antepartum URI, acute- Primary Acute upper respiratory infections of unspecified site [facility] Diagnosis Thickening of nuchal fold- Primary History of viral myocarditis Personal history of other diseases of circulatory system H/O delivery, currently with history of pre-term labor Depression complicating in second trimester, antepartum Supervision of high risk in third trimester- Primary Unspecified high-risk 32 weeks gestation of state, incidental H/O delivery, currently with history of pre-term labor History of section Other postprocedural status [facility] Diagnosis Thickening of nuchal fold- Primary History of viral myocarditis Personal history of other diseases of circulatory system H/O delivery, currently with history of pre-term labor Depression complicating in second trimester, antepartum Encounter for ultrasound to check growth- Primary Encounter for routine screening for malformation using ultrasonics Obesity affecting in third trimester, unspecified obesity type 33 weeks gestation of state, incidental [facility] Diagnosis Thickening of nuchal fold- Primary History of viral myocarditis Personal history of other diseases of circulatory system H/O delivery, currently with history of pre-term labor Depression complicating in second trimester, antepartum Supervision of high risk in third trimester- Primary Unspecified high-risk Excessive growth affecting management of in third trimester, single or unspecified fetus H/O delivery, currently with history of pre-term labor History of section Other postprocedural status Need for RSV vaccination Need for prophylactic vaccination and inoculation against respiratory syncytial virus 35 weeks gestation of state, incidental * Assessment & Plan Note - Danyell Jurado MD - 08/06/2024 4:19 PM EST Associated Problem(s): H/O delivery, currently * Assessment & Plan Note - Danyell Jurado MD - 08/06/2024 4:19 PM EST Associated Problem(s): History of section * Assessment & Plan Note - Danyell Jurado MD - 08/06/2024 4:19 PM EST Associated Problem(s): Excessive growth affecting management of mother in third trimester, antepartum [facility] Diagnosis Thickening of nuchal fold- Primary History of viral myocarditis Personal history of other diseases of circulatory system H/O delivery, currently with history of pre-term labor Depression complicating in second trimester, antepartum Supervision of high risk in third trimester- Primary Unspecified high-risk Excessive growth affecting management of in third trimester, single or unspecified fetus H/O delivery, currently with history of pre-term labor History of section Other postprocedural status Need for RSV vaccination Need for prophylactic vaccination and inoculation against respiratory syncytial virus 35 weeks gestation of state, incidental Supervision of high risk in third trimester- Primary Unspecified high-risk Excessive growth affecting management of in third trimester, single or unspecified fetus H/O delivery, currently with history of pre-term labor History of section Other postprocedural status Anxiety during 36 weeks gestation of state, incidental [facility] Diagnosis Thickening of nuchal fold- Primary History of viral myocarditis Personal history of other diseases of circulatory system H/O delivery, currently with history of pre-term labor Depression complicating in second trimester, antepartum Supervision of high risk in third trimester- Primary Unspecified high-risk Excessive growth affecting management of in third trimester, single or unspecified fetus H/O delivery, currently with history of pre-term labor History of section Other postprocedural status Need for RSV vaccination Need for prophylactic vaccination and inoculation against respiratory syncytial virus 35 weeks gestation of state, incidental History of section- Primary Other postprocedural status [facility] Diagnosis Thickening of nuchal fold- Primary History of viral myocarditis Personal history of other diseases of circulatory system H/O delivery, currently with history of pre-term labor Depression complicating in second trimester, antepartum Supervision of high risk in third trimester- Primary Unspecified high-risk Excessive growth affecting management of in third trimester, single or unspecified fetus H/O delivery, currently with history of pre-term labor History of section Other postprocedural status Need for RSV vaccination Need for prophylactic vaccination and inoculation against respiratory syncytial virus 35 weeks gestation of state, incidental care and examination immediately after delivery- Primary [facility] Diagnosis Thickening of nuchal fold- Primary History of viral myocarditis Personal history of other diseases of circulatory system H/O delivery, currently with history of pre-term labor Depression complicating in second trimester, antepartum Supervision of high risk in third trimester- Primary Unspecified high-risk Excessive growth affecting management of in third trimester, single or unspecified fetus H/O delivery, currently with history of pre-term labor History of section Other postprocedural status Need for RSV vaccination Need for prophylactic vaccination and inoculation against respiratory syncytial virus 35 weeks gestation of state, incidental Vaginal discharge- Primary Leukorrhea, not specified as infective Dysuria Lactating mother care and examination of lactating mother History of section Other postprocedural status * Assessment & Plan Note - Rosario Garcia APRN.CNM - 09/08/2024 4:51 PM EST Associated Problem(s): History of section - Support provided - Discussed exam results and that vaginal discharge is normal lochia - UA dip- negative except for small leukocytes/ trace/lysed blood - Will notify patient of results or any treatment plans [facility] Diagnosis Thickening of nuchal fold- Primary History of viral myocarditis Personal history of other diseases of circulatory system H/O delivery, currently with history of pre-term labor Depression complicating in second trimester, antepartum care and examination- Primary Routine follow-up [facility] Diagnosis Thickening of nuchal fold- Primary History of viral myocarditis Personal history of other diseases of circulatory system H/O delivery, currently ([facility]) with history of pre-term labor Depression complicating in second trimester, antepartum ([facility]) Vaginal discharge- Primary Leukorrhea, not specified as infective Vaginal irritation Unspecified noninflammatory disorder of vagina [facility] Diagnosis Thickening of nuchal fold- Primary History of viral myocarditis Personal history of other diseases of circulatory system H/O delivery, currently ([facility]) with history of pre-term labor Depression complicating in second trimester, antepartum ([facility]) Anxiety with depression- Primary Screening for depression Encounter for screening examination for other mental health and behavioral disorders Depression, unspecified depression type Chronic insomnia Insomnia, unspecified [facility] Diagnosis Thickening of nuchal fold- Primary History of viral myocarditis Personal history of other diseases of circulatory system H/O delivery, currently ([facility]) with history of pre-term labor Depression complicating in second trimester, antepartum (HCC) BV (bacterial vaginosis)- Primary Vaginitis and vulvovaginitis, unspecified documented in this encounter [facility] for referral (narrative)* Diagnostic Procedure Only (Routine) - Open Specialty Diagnoses / Procedures Referred By Contac t Referred To Contact [facility] Diagnoses 31 weeks gestation of Supervision of high risk in third trimester Procedures OBSTETRIC ULTRASOUND WHI US PREG UTERUS AFTER 1ST TRIMEST GESTATION Rosario Garcia APRN.CNM [address] [place] [address] [facility] [address] [place] [address] Referral ID Status Reason Start Date Expiration Date V isits Requested Visits Authorized [id number] Open Auto-Generate d Referral 12/04/2021 12/04/2022 1 1 [facility] for referral (narrative)* Diagnostic Procedure Only (Routine) - Pending Review Specialty Diagnoses / Procedures Referred By Contac t Referred To Contact XR IMAGING Diagnoses Injury of lower leg, right, initial encounter Procedures XR ANKLE GENERAL 3V AP/LAT/OBL RIGHT RADEX ANKLE COMPLETE MINIMUM 3 VIEWS Alexandru Benitez V, DO [address] [place] [address] [place] [address] Referral ID Status Reason Start Date Expiration Date Visits Requested Visits Authorized [id number] Pending Review Auto-Generat ed Referral 04/30/2023 05/29/2024 1 1 [facility] for referral (narrative)* Diagnostic Procedure Only (Routine) - Authorized Specialty Diagnoses / Procedures Referred By Contac t Referred To Contact [facility] Diagnoses Encounter for screening for nuchal translucency History of delivery Procedures OBSTETRIC ULTRASOUND WHI US PREG UTERUS AFTER 1ST TRIMEST GESTATION Yobani Darby MD [address] [place] [address] [facility] [address] [place] [address] Referral ID Status Reason Start Date Expiration Date Visits Requested Visits Authorized [id number] Authorized Auto-Generat ed Referral 03/09/2024 03/09/2025 4 1 [facility] for referral (narrative)* Diagnostic Procedure Only (Routine) - Closed Specialty Diagnoses / Procedures Referred By Contac t Referred To Contact XR IMAGING Diagnoses Injury of right ankle, subsequent encounter Procedures XR ANKLE GENERAL 3V AP/LAT/OBL RIGHT RADEX ANKLE COMPLETE MINIMUM 3 VIEWS Surjit Aguirre MD [address] [place] [id number] Xr Imaging [facility] Referral ID Status Reason Start Date Expiration Date V isits Requested Visits Authorized [id number] Closed Auto-Generate d Referral 08/04/2023 09/02/2024 1 1 [facility] for referral (narrative)* Diagnostic Procedure Only (Routine) - New Request Specialty Diagnoses / Procedures Referred By Contac t Referred To Contact [facility] Diagnoses Encounter for anatomic survey Procedures OBSTETRIC ULTRASOUND WHI US PREG UTERUS AFTER 1ST TRIMEST GESTATION Vini Diez MD [address] [place] [address] [facility] [address] [place] [address] Referral ID Status Reason Start Date Expiration Date Visits Requested Visits Authorized [id number] New Request Auto-Generat ed Referral 05/12/2024 05/12/2025 1 1 T [facility] for referral (narrative)* Diagnostic Procedure Only (Routine) - Authorized Specialty Diagnoses / Procedures Referred By Contac t Referred To Contact [facility] Diagnoses History of labor Procedures OBSTETRIC ULTRASOUND WHI US PREG UTERUS AFTER 1ST TRIMEST GESTATION Danii Weinberg, HEALTH INFORMATION SPECIALIST.CLINICAL MATERIAL HANDLER [address] [place] [address] [facility] [address] [place] [address] Referral ID Status Reason Start Date Expiration Date Visits Requested Visits Authorized [id number] Authorized Auto-Generat ed Referral 05/17/2024 05/17/2025 1 1 [facility] for referral (narrative)* Outpatient Procedure (Routine) - New Request Specialty Diagnoses / Procedures Referred By Contac t Referred To Contact [facility] Diagnoses Heart palpitations Procedures ECG COMPLETE ECG ROUTINE ECG W/LEAST 12 LDS W/I&R Sami Vora MD [address] [place] [address] [address] Referral ID Status Reason Start Date Expiration Date Visits Requested Visits Authorized [id number] New Request Auto-Generat ed Referral 05/24/2024 05/24/2025 1 1 [facility] for referral (narrative)* Outpatient Procedure (Routine) - Closed Specialty Diagnoses / Procedures Referred By Contac t Referred To Contact [facility] Diagnoses Palpitations Procedures ECHO ECHO TTHRC R-T 2D W/WOM-MODE COMPL SPEC&COLR D Sami Vora MD [address] [place] [address] [id number] [place] [address] Referral ID Status Reason Start Date Expiration Date V isits Requested Visits Authorized [id number] Closed Auto-Generate d Referral 05/26/2024 05/26/2025 1 1 T [facility] for referral (narrative)* Diagnostic Procedure Only (Routine) - Authorized Specialty Diagnoses / Procedures Referred By Contac t Referred To Contact [facility] Diagnoses Obesity affecting in third trimester, unspecified obesity type Procedures OBSTETRIC ULTRASOUND WHI US PREG UTERUS AFTER 1ST TRIMEST GESTATION Yobani Darby MD [address] [place] [address] [address] Referral ID Status Reason Start Date Expiration Date Visits Requested Visits Authorized [id number] Authorized Auto-Generat ed Referral 06/24/2024 06/24/2025 1 1 [facility] for referral (narrative)* Diagnostic Procedure Only (Routine) - New Request Specialty Diagnoses / Procedures Referred By Contac t Referred To Contact [facility] Diagnoses Supervision of high risk in third trimester Excessive growth affecting management of in third trimester, single or unspecified fetus Procedures OBSTETRIC ULTRASOUND WHI US PREG UTERUS AFTER 1ST TRIMEST GESTATION Rosario Garcia APRN.CNM [address] [place] [address] [address] Referral ID Status Reason Start Date Expiration Date Visits Requested Visits Authorized [id number] New Request Auto-Generat ed Referral 08/16/2025 5 1 [facility] for visit Narrative* Diagnostic Procedure Only (Routine) - Closed Specialty Diagnoses / Procedures Referred By Contac t Referred To Contact XR IMAGING Diagnoses Injury of right ankle, subsequent encounter Procedures XR FOOT GENERAL 3V AP/LAT/OBL RIGHT RADEX FOOT COMPLETE MINIMUM 3 VIEWS Surjit Aguirre MD [address] [place] [address] [place] [address] Referral ID Status Reason Start Date Expiration Date V isits Requested Visits Authorized [id number] Closed Auto-Generate d Referral 07/29/2023 08/27/2024 1 1 [facility] for visit Narrative* Diagnostic Procedure Only (Urgent) - Closed Specialty Diagnoses / Procedures Referred By Contac t Referred To Contact XR IMAGING Diagnoses Injury of right lower extremity, initial encounter Procedures XR ANKLE GENERAL 3V AP/LAT/OBL RIGHT RADEX ANKLE COMPLETE MINIMUM 3 VIEWS Duane Higuera APRN.CLINICAL MATERIAL HANDLER [address] [place] [address] [place] [address] Referral ID Status Reason Start Date Expiration Date V isits Requested Visits Authorized [id number] Closed Auto-Generate d Referral 04/17/2023 05/16/2024 1 1 [facility] Outpatient Procedure (Routine) - Closed Specialty Diagnoses / Procedures Referred By Contac t [facility] Diagnoses Palpitations Procedures ECHO ECHO TTHRC R-T 2D W/WOM-MODE COMPL SPEC&COLR D Sami Vora MD [address] [facility] [address] [place] [address] [facility] [address] [place] [address] Referral ID Status Reason Start Date Expiration Date V isits Requested Visits Authorized [id number] Closed Auto-Generate d Referral 05/26/2024 05/26/2025 1 1 [facility] Medications Administered Section Inactive Administered Medications [...] AM EDT 150 mg Bu ttocks, Right Chief Complaint and Reason for Visit Chief Complaint R/O LABOR LABOR Reason for Visit 35 weeks gestation o f 36 weeks gestation of Anemia affecting Arrest of descent, delivered, current hospitalization Delivery by section History of depression History of delivery Lactating mother POP (persistent occipitoposterior position) labor Short interval between pregnancies affecting , antepartum Thickening of nuchal fold Acute on chronic blood loss anemia Advance Directives No Advanced Directives Records Found Advance Directive Response Recorded Date/ Time Living Will No January 04, 2022 8 :55pm Power of Flush Tester No January 04, 2022 8:55pm Summary Purpose Family History No Family History Records FoundNo Family History Records FoundNo Family History Records FoundNo Family History Records Found Reason for Referral Specialty Diagnoses / Procedures Referred By Ann fuentes Referred To Contact Ent - Otolaryngology Diagnoses Throat pain Procedures CONSULT TO ENT OFFICE/OUTPATIENT [facility] 60-74 MINUTES Surjit Aguirre MD [address] [place] [address] Referral ID Status Reason Start Date Expiration Date Visits Requested Visits Authorized [id number] Authorized PCP Requested Referral 10/01/2022 10/01/2023 1 1 Specialty Diagnoses / Procedures Referred By nAn fuentes Referred To Contact Orthopedics Diagnoses Injury of right lower extremity, initial encounter Procedures CONSULT TO ORTHOPAEDICS OFFICE/OUTPATIENT [facility] 60-74 MINUTES Duane Higuera APRN.EMRE [address] [place] [address] Referral ID Status Reason Start Date Expiration Date Visits Requested Visits Authorized [id number] Authorized PCP Requested Referral 04/17/2023 04/16/2024 1 1 Specialty Diagnoses / Procedures Referred By Contac t Referred To Contact XR IMAGING Diagnoses Injury of right lower extremity, initial encounter Procedures XR ANKLE GENERAL 3V AP/LAT/OBL RIGHT RADEX ANKLE COMPLETE MINIMUM 3 VIEWS Duane Higuera APRN.CLINICAL MATERIAL HANDLER [address] [place] [address] [place] [address] Referral ID Status Reason Start Date Expiration Date V isits Requested Visits Authorized [id number] Closed Auto-Generate d Referral 04/17/2023 05/16/2024 1 1 Specialty Diagnoses / Procedures Referred By Contac t Referred To Contact XR IMAGING Diagnoses Injury of right lower extremity, initial encounter Procedures XR FOOT GENERAL 3V AP/LAT/OBL RIGHT RADEX FOOT COMPLETE MINIMUM 3 VIEWS Duane Higuera APRN.CLINICAL MATERIAL HANDLER [address] [place] [address] [place] [address] Referral ID Status Reason Start Date Expiration Date V isits Requested Visits Authorized [id number] Closed Auto-Generate d Referral 04/17/2023 05/16/2024 1 1 Specialty Diagnoses / Procedures Referred By Contac t Referred To Contact Diagnoses Encounter for supervision of high risk in first trimester, antepartum 8 weeks gestation of Procedures CONSULT TO MATERNAL MEDI CONSULT TO MATERNAL MEDI OFFICE/OUTPATIENT NEW HIGH MDM 60 MINUTES Danii Weinberg APRN.CLINICAL MATERIAL HANDLER [address] [place] [address] Referral ID Status Reason Start Date Expiration Date Visits Requested Visits Authorized [id number] Authorized PCP Requested Referral Auto-Generate d Referral 02/04/2024 02/03/2025 1 1 Specialty Diagnoses / Procedures Referred By Contac t Referred To Contact [facility] Diagnoses Encounter for supervision of high risk in first trimester, antepartum 8 weeks gestation of Procedures NUCHAL TRANSLUCENCY WHI US NUCHAL TRANSLUCENCY 1ST GESTATION Danii Weinberg APRN.CLINICAL MATERIAL HANDLER [address] [place] [address] [facility] [address] [place] [address] Referral ID Status Reason Start Date Expiration Date Visits Requested Visits Authorized [id number] Pending Review Auto-Generat ed Referral 02/04/2024 02/03/2025 1 1 Specialty Diagnoses / Procedures Referred By Contac t Referred To Contact Cardiology Diagnoses High-risk in second trimester 23 weeks gestation of Heart palpitations Dizziness Procedures CONSULT TO CARDIOLOGY OFFICE/OUTPATIENT NEW HIGH MDM 60 MINUTES Rosario Garcia APRN.[facility] [address] [place] [address] Referral ID Status Reason Start Date Expiration Date Visits Requested Visits Authorized [id number] Authorized PCP Requested Referral 05/21/2024 05/21/2025 1 1 Specialty Diagnoses / Procedures Referred By Contac t Referred To Contact [facility] Procedures CARDIOVASCULAR MEDICINE OP FOLLOW UP APPT ORDER Sami Vora MD [address] [address] [address] [address] [place] [address] Referral ID Status Reason Start Date Expiration Date Visits Requested Visits Authorized [id number] Ref Not Required PCP Requested Referral 06/07/2025 1 1 Specialty Diagnoses / Procedures Referred By Contac t Referred To Contact [facility] Diagnoses Palpitations Procedures ECHO ECHO TTHRC R-T 2D W/WOM-MODE COMPL SPEC&COLR D Sami Vora MD [address] [place] [address] [address] [address] [place] [address] Referral ID Status Reason Start Date Expiration Date V isits Requested Visits Authorized [id number] Closed Auto-Generate d Referral 05/26/2024 05/26/2025 1 1 Referral ID Status Reason Start Date Expiration Date Visits Requested Visits Authorized [id number] Ref Not Required PCP Requested Referral 10/23/202 4 06/09/2025 1 1 Specialty Diagnoses / Procedures Referred By Contac t Referred To Contact Diagnoses History of section Yobani Darby MD [address] [place] [address] Referral ID Status Reason Start Date Expiration Date Visits Re quested Visits Authorized [id number] Closed 1 1 Additional Source Comments Source Comments (unrecognize d section and content) In the event this informatio n is protected by the Federal Confidentiality of Alcohol and Drug Abuse Patient Records regulations: The Federal rules restrict any use of the information to criminally investigate or prosecute any alcohol or drug abuse patient.[facility] the event this information is protected by the Federal Confidentiality of Alcohol and Drug Abuse Patient Records regulations: The Federal rules restrict any use of the information to criminally investigate or prosecute any alcohol or drug abuse patient.[facility] HospitalIn the event this information is protected by the Federal Confidentiality of Alcohol and Drug Abuse Patient Records regulations: The Federal rules restrict any use of the information to criminally investigate or prosecute any alcohol or drug abuse patient.[facility] HospitalIn the event this information is protected by the Federal Confidentiality of Alcohol and Drug Abuse Patient Records regulations: The Federal rules restrict any use of the information to criminally investigate or prosecute any alcohol or drug abuse patient.[facility] HospitalIn the event this information is protected by the Federal Confidentiality of Alcohol and Drug Abuse Patient Records regulations: The Federal rules restrict any use of the information to criminally investigate or prosecute any alcohol or drug abuse patient.[facility] HospitalIn the event this information is protected by the Federal Confidentiality of Alcohol and Drug Abuse Patient Records regulations: The Federal rules restrict any use of the information to criminally investigate or prosecute any alcohol or drug abuse patient.[facility] HospitalIn the event this information is protected by the Federal Confidentiality of Alcohol and Drug Abuse Patient Records regulations: The Federal rules restrict any use of the information to criminally investigate or prosecute any alcohol or drug abuse patient.[facility] HospitalIn the event this information is protected by the Federal Confidentiality of Alcohol and Drug Abuse Patient Records regulations: The Federal rules restrict any use of the information to criminally investigate or prosecute any alcohol or drug abuse patient.[facility] HospitalIn the event this information is protected by the Federal Confidentiality of Alcohol and Drug Abuse Patient Records regulations: The Federal rules restrict any use of the information to criminally investigate or prosecute any alcohol or drug abuse patient.[facility] HospitalIn the event this information is protected by the Federal Confidentiality of Alcohol and Drug Abuse Patient Records regulations: The Federal rules restrict any use of the information to criminally investigate or prosecute any alcohol or drug abuse patient.[facility] HospitalIn the event this information is protected by the Federal Confidentiality of Alcohol and Drug Abuse Patient Records regulations: The Federal rules restrict any use of the information to criminally investigate or prosecute any alcohol or drug abuse patient.[facility] HospitalIn the event this information is protected by the Federal Confidentiality of Alcohol and Drug Abuse Patient Records regulations: The Federal rules restrict any use of the information to criminally investigate or prosecute any alcohol or drug abuse patient.[facility] HospitalIn the event this information is protected by the Federal Confidentiality of Alcohol and Drug Abuse Patient Records regulations: The Federal rules restrict any use of the information to criminally investigate or prosecute any alcohol or drug abuse patient.[facility] HospitalIn the event this information is protected by the Federal Confidentiality of Alcohol and Drug Abuse Patient Records regulations: The Federal rules restrict any use of the information to criminally investigate or prosecute any alcohol or drug abuse patient.[facility] HospitalIn the event this information is protected by the Federal Confidentiality of Alcohol and Drug Abuse Patient Records regulations: The Federal rules restrict any use of the information to criminally investigate or prosecute any alcohol or drug abuse patient.[facility] HospitalIn the event this information is protected by the Federal Confidentiality of Alcohol and Drug Abuse Patient Records regulations: The Federal rules restrict any use of the information to criminally investigate or prosecute any alcohol or drug abuse patient.[facility] HospitalIn the event this information is protected by the Federal Confidentiality of Alcohol and Drug Abuse Patient Records regulations: The Federal rules restrict any use of the information to criminally investigate or prosecute any alcohol or drug abuse patient.[facility] HospitalIn the event this information is protected by the Federal Confidentiality of Alcohol and Drug Abuse Patient Records regulations: The Federal rules restrict any use of the information to criminally investigate or prosecute any alcohol or drug abuse patient.[facility] HospitalIn the event this information is protected by the Federal Confidentiality of Alcohol and Drug Abuse Patient Records regulations: The Federal rules restrict any use of the information to criminally investigate or prosecute any alcohol or drug abuse patient.[facility] HospitalIn the event this information is protected by the Federal Confidentiality of Alcohol and Drug Abuse Patient Records regulations: The Federal rules restrict any use of the information to criminally investigate or prosecute any alcohol or drug abuse patient.[facility] HospitalIn the event this information is protected by the Federal Confidentiality of Alcohol and Drug Abuse Patient Records regulations: The Federal rules restrict any use of the information to criminally investigate or prosecute any alcohol or drug abuse patient.[facility] HospitalIn the event this information is protected by the Federal Confidentiality of Alcohol and Drug Abuse Patient Records regulations: The Federal rules restrict any use of the information to criminally investigate or prosecute any alcohol or drug abuse patient.[facility] HospitalIn the event this information is protected by the Federal Confidentiality of Alcohol and Drug Abuse Patient Records regulations: The Federal rules restrict any use of the information to criminally investigate or prosecute any alcohol or drug abuse patient.[facility] HospitalIn the event this information is protected by the Federal Confidentiality of Alcohol and Drug Abuse Patient Records regulations: The Federal rules restrict any use of the information to criminally investigate or prosecute any alcohol or drug abuse patient.[facility] HospitalIn the event this information is protected by the Federal Confidentiality of Alcohol and Drug Abuse Patient Records regulations: The Federal rules restrict any use of the information to criminally investigate or prosecute any alcohol or drug abuse patient.[facility] HospitalIn the event this information is protected by the Federal Confidentiality of Alcohol and Drug Abuse Patient Records regulations: The Federal rules restrict any use of the information to criminally investigate or prosecute any alcohol or drug abuse patient.[facility] HospitalIn the event this information is protected by the Federal Confidentiality of Alcohol and Drug Abuse Patient Records regulations: The Federal rules restrict any use of the information to criminally investigate or prosecute any alcohol or drug abuse patient.[facility] HospitalIn the event this information is protected by the Federal Confidentiality of Alcohol and Drug Abuse Patient Records regulations: The Federal rules restrict any use of the information to criminally investigate or prosecute any alcohol or drug abuse patient.[facility] HospitalIn the event this information is protected by the Federal Confidentiality of Alcohol and Drug Abuse Patient Records regulations: The Federal rules restrict any use of the information to criminally investigate or prosecute any alcohol or drug abuse patient.[facility] HospitalIn the event this information is protected by the Federal Confidentiality of Alcohol and Drug Abuse Patient Records regulations: The Federal rules restrict any use of the information to criminally investigate or prosecute any alcohol or drug abuse patient.[facility] HospitalIn the event this information is protected by the Federal Confidentiality of Alcohol and Drug Abuse Patient Records regulations: The Federal rules restrict any use of the information to criminally investigate or prosecute any alcohol or drug abuse patient.[facility] HospitalIn the event this information is protected by the Federal Confidentiality of Alcohol and Drug Abuse Patient Records regulations: The Federal rules restrict any use of the information to criminally investigate or prosecute any alcohol or drug abuse patient.[facility] HospitalIn the event this information is protected by the Federal Confidentiality of Alcohol and Drug Abuse Patient Records regulations: The Federal rules restrict any use of the information to criminally investigate or prosecute any alcohol or drug abuse patient.[facility] HospitalIn the event this information is protected by the Federal Confidentiality of Alcohol and Drug Abuse Patient Records regulations: The Federal rules restrict any use of the information to criminally investigate or prosecute any alcohol or drug abuse patient.[facility] HospitalIn the event this information is protected by the Federal Confidentiality of Alcohol and Drug Abuse Patient Records regulations: The Federal rules restrict any use of the information to criminally investigate or prosecute any alcohol or drug abuse patient.[facility] HospitalIn the event this information is protected by the Federal Confidentiality of Alcohol and Drug Abuse Patient Records regulations: The Federal rules restrict any use of the information to criminally investigate or prosecute any alcohol or drug abuse patient.[facility] HospitalIn the event this information is protected by the Federal Confidentiality of Alcohol and Drug Abuse Patient Records regulations: The Federal rules restrict any use of the information to criminally investigate or prosecute any alcohol or drug abuse patient.[facility] HospitalIn the event this information is protected by the Federal Confidentiality of Alcohol and Drug Abuse Patient Records regulations: The Federal rules restrict any use of the information to criminally investigate or prosecute any alcohol or drug abuse patient.[facility] HospitalIn the event this information is protected by the Federal Confidentiality of Alcohol and Drug Abuse Patient Records regulations: The Federal rules restrict any use of the information to criminally investigate or prosecute any alcohol or drug abuse patient.[facility] HospitalIn the event this information is protected by the Federal Confidentiality of Alcohol and Drug Abuse Patient Records regulations: The Federal rules restrict any use of the information to criminally investigate or prosecute any alcohol or drug abuse patient.[facility] HospitalIn the event this information is protected by the Federal Confidentiality of Alcohol and Drug Abuse Patient Records regulations: The Federal rules restrict any use of the information to criminally investigate or prosecute any alcohol or drug abuse patient.[facility] HospitalIn the event this information is protected by the Federal Confidentiality of Alcohol and Drug Abuse Patient Records regulations: The Federal rules restrict any use of the information to criminally investigate or prosecute any alcohol or drug abuse patient.[facility] HospitalIn the event this information is protected by the Federal Confidentiality of Alcohol and Drug Abuse Patient Records regulations: The Federal rules restrict any use of the information to criminally investigate or prosecute any alcohol or drug abuse patient.[facility] HospitalIn the event this information is protected by the Federal Confidentiality of Alcohol and Drug Abuse Patient Records regulations: The Federal rules restrict any use of the information to criminally investigate or prosecute any alcohol or drug abuse patient.[facility] HospitalIn the event this information is protected by the Federal Confidentiality of Alcohol and Drug Abuse Patient Records regulations: The Federal rules restrict any use of the information to criminally investigate or prosecute any alcohol or drug abuse patient.[facility] HospitalIn the event this information is protected by the Federal Confidentiality of Alcohol and Drug Abuse Patient Records regulations: The Federal rules restrict any use of the information to criminally investigate or prosecute any alcohol or drug abuse patient.[facility] HospitalIn the event this information is protected by the Federal Confidentiality of Alcohol and Drug Abuse Patient Records regulations: The Federal rules restrict any use of the information to criminally investigate or prosecute any alcohol or drug abuse patient.[facility] HospitalIn the event this information is protected by the Federal Confidentiality of Alcohol and Drug Abuse Patient Records regulations: The Federal rules restrict any use of the information to criminally investigate or prosecute any alcohol or drug abuse patient.[facility] HospitalIn the event this information is protected by the Federal Confidentiality of Alcohol and Drug Abuse Patient Records regulations: The Federal rules restrict any use of the information to criminally investigate or prosecute any alcohol or drug abuse patient.[facility] HospitalIn the event this information is protected by the Federal Confidentiality of Alcohol and Drug Abuse Patient Records regulations: The Federal rules restrict any use of the information to criminally investigate or prosecute any alcohol or drug abuse patient.[facility] the event this information is protected by the Federal Confidentiality of Alcohol and Drug Abuse Patient Records regulations: The Federal rules restrict any use of the information to criminally investigate or prosecute any alcohol or drug abuse patient.[facility] HospitalIn the event this information is protected by the Federal Confidentiality of Alcohol and Drug Abuse Patient Records regulations: The Federal rules restrict any use of the information to criminally investigate or prosecute any alcohol or drug abuse patient.[facility] HospitalIn the event this information is protected by the Federal Confidentiality of Alcohol and Drug Abuse Patient Records regulations: The Federal rules restrict any use of the information to criminally investigate or prosecute any alcohol or drug abuse patient.[facility] HospitalIn the event this information is protected by the Federal Confidentiality of Alcohol and Drug Abuse Patient Records regulations: The Federal rules restrict any use of the information to criminally investigate or prosecute any alcohol or drug abuse patient.[facility] HospitalIn the event this information is protected by the Federal Confidentiality of Alcohol and Drug Abuse Patient Records regulations: The Federal rules restrict any use of the information to criminally investigate or prosecute any alcohol or drug abuse patient.[facility] HospitalIn the event this information is protected by the Federal Confidentiality of Alcohol and Drug Abuse Patient Records regulations: The Federal rules restrict any use of the information to criminally investigate or prosecute any alcohol or drug abuse patient.[facility] HospitalIn the event this information is protected by the Federal Confidentiality of Alcohol and Drug Abuse Patient Records regulations: The Federal rules restrict any use of the information to criminally investigate or prosecute any alcohol or drug abuse patient.[facility] HospitalIn the event this information is protected by the Federal Confidentiality of Alcohol and Drug Abuse Patient Records regulations: The Federal rules restrict any use of the information to criminally investigate or prosecute any alcohol or drug abuse patient.[facility] HospitalIn the event this information is protected by the Federal Confidentiality of Alcohol and Drug Abuse Patient Records regulations: The Federal rules restrict any use of the information to criminally investigate or prosecute any alcohol or drug abuse patient.[facility] HospitalIn the event this information is protected by the Federal Confidentiality of Alcohol and Drug Abuse Patient Records regulations: The Federal rules restrict any use of the information to criminally investigate or prosecute any alcohol or drug abuse patient.[facility] HospitalIn the event this information is protected by the Federal Confidentiality of Alcohol and Drug Abuse Patient Records regulations: The Federal rules restrict any use of the information to criminally investigate or prosecute any alcohol or drug abuse patient.[facility] HospitalIn the event this information is protected by the Federal Confidentiality of Alcohol and Drug Abuse Patient Records regulations: The Federal rules restrict any use of the information to criminally investigate or prosecute any alcohol or drug abuse patient.[facility] HospitalIn the event this information is protected by the Federal Confidentiality of Alcohol and Drug Abuse Patient Records regulations: The Federal rules restrict any use of the information to criminally investigate or prosecute any alcohol or drug abuse patient.[facility] HospitalIn the event this information is protected by the Federal Confidentiality of Alcohol and Drug Abuse Patient Records regulations: The Federal rules restrict any use of the information to criminally investigate or prosecute any alcohol or drug abuse patient.[facility] HospitalIn the event this information is protected by the Federal Confidentiality of Alcohol and Drug Abuse Patient Records regulations: The Federal rules restrict any use of the information to criminally investigate or prosecute any alcohol or drug abuse patient.[facility] HospitalIn the event this information is protected by the Federal Confidentiality of Alcohol and Drug Abuse Patient Records regulations: The Federal rules restrict any use of the information to criminally investigate or prosecute any alcohol or drug abuse patient.[facility] HospitalIn the event this information is protected by the Federal Confidentiality of Alcohol and Drug Abuse Patient Records regulations: The Federal rules restrict any use of the information to criminally investigate or prosecute any alcohol or drug abuse patient.[facility] HospitalIn the event this information is protected by the Federal Confidentiality of Alcohol and Drug Abuse Patient Records regulations: The Federal rules restrict any use of the information to criminally investigate or prosecute any alcohol or drug abuse patient.[facility] HospitalIn the event this information is protected by the Federal Confidentiality of Alcohol and Drug Abuse Patient Records regulations: The Federal rules restrict any use of the information to criminally investigate or prosecute any alcohol or drug abuse patient.[facility] HospitalIn the event this information is protected by the Federal Confidentiality of Alcohol and Drug Abuse Patient Records regulations: The Federal rules restrict any use of the information to criminally investigate or prosecute any alcohol or drug abuse patient.[facility] HospitalIn the event this information is protected by the Federal Confidentiality of Alcohol and Drug Abuse Patient Records regulations: The Federal rules restrict any use of the information to criminally investigate or prosecute any alcohol or drug abuse patient.[facility] HospitalIn the event this information is protected by the Federal Confidentiality of Alcohol and Drug Abuse Patient Records regulations: The Federal rules restrict any use of the information to criminally investigate or prosecute any alcohol or drug abuse patient.[facility] HospitalIn the event this information is protected by the Federal Confidentiality of Alcohol and Drug Abuse Patient Records regulations: The Federal rules restrict any use of the information to criminally investigate or prosecute any alcohol or drug abuse patient.[facility] HospitalIn the event this information is protected by the Federal Confidentiality of Alcohol and Drug Abuse Patient Records regulations: The Federal rules restrict any use of the information to criminally investigate or prosecute any alcohol or drug abuse patient.[facility] HospitalIn the event this information is protected by the Federal Confidentiality of Alcohol and Drug Abuse Patient Records regulations: The Federal rules restrict any use of the information to criminally investigate or prosecute any alcohol or drug abuse patient.[facility] HospitalIn the event this information is protected by the Federal Confidentiality of Alcohol and Drug Abuse Patient Records regulations: The Federal rules restrict any use of the information to criminally investigate or prosecute any alcohol or drug abuse patient.[facility] HospitalIn the event this information is protected by the Federal Confidentiality of Alcohol and Drug Abuse Patient Records regulations: The Federal rules restrict any use of the information to criminally investigate or prosecute any alcohol or drug abuse patient.[facility] HospitalIn the event this information is protected by the Federal Confidentiality of Alcohol and Drug Abuse Patient Records regulations: The Federal rules restrict any use of the information to criminally investigate or prosecute any alcohol or drug abuse patient.[facility] HospitalIn the event this information is protected by the Federal Confidentiality of Alcohol and Drug Abuse Patient Records regulations: The Federal rules restrict any use of the information to criminally investigate or prosecute any alcohol or drug abuse patient.[facility] HospitalIn the event this information is protected by the Federal Confidentiality of Alcohol and Drug Abuse Patient Records regulations: The Federal rules restrict any use of the information to criminally investigate or prosecute any alcohol or drug abuse patient.[facility] HospitalIn the event this information is protected by the Federal Confidentiality of Alcohol and Drug Abuse Patient Records regulations: The Federal rules restrict any use of the information to criminally investigate or prosecute any alcohol or drug abuse patient.[facility] HospitalIn the event this information is protected by the Federal Confidentiality of Alcohol and Drug Abuse Patient Records regulations: The Federal rules restrict any use of the information to criminally investigate or prosecute any alcohol or drug abuse patient.[facility] HospitalIn the event this information is protected by the Federal Confidentiality of Alcohol and Drug Abuse Patient Records regulations: The Federal rules restrict any use of the information to criminally investigate or prosecute any alcohol or drug abuse patient.[facility] HospitalIn the event this information is protected by the Federal Confidentiality of Alcohol and Drug Abuse Patient Records regulations: The Federal rules restrict any use of the information to criminally investigate or prosecute any alcohol or drug abuse patient.[facility] HospitalIn the event this information is protected by the Federal Confidentiality of Alcohol and Drug Abuse Patient Records regulations: The Federal rules restrict any use of the information to criminally investigate or prosecute any alcohol or drug abuse patient.[facility] HospitalIn the event this information is protected by the Federal Confidentiality of Alcohol and Drug Abuse Patient Records regulations: The Federal rules restrict any use of the information to criminally investigate or prosecute any alcohol or drug abuse patient.[facility] HospitalIn the event this information is protected by the Federal Confidentiality of Alcohol and Drug Abuse Patient Records regulations: The Federal rules restrict any use of the information to criminally investigate or prosecute any alcohol or drug abuse patient.[facility] HospitalIn the event this information is protected by the Federal Confidentiality of Alcohol and Drug Abuse Patient Records regulations: The Federal rules restrict any use of the information to criminally investigate or prosecute any alcohol or drug abuse patient.[facility] HospitalIn the event this information is protected by the Federal Confidentiality of Alcohol and Drug Abuse Patient Records regulations: The Federal rules restrict any use of the information to criminally investigate or prosecute any alcohol or drug abuse patient.[facility] HospitalIn the event this information is protected by the Federal Confidentiality of Alcohol and Drug Abuse Patient Records regulations: The Federal rules restrict any use of the information to criminally investigate or prosecute any alcohol or drug abuse patient.[facility] HospitalIn the event this information is protected by the Federal Confidentiality of Alcohol and Drug Abuse Patient Records regulations: The Federal rules restrict any use of the information to criminally investigate or prosecute any alcohol or drug abuse patient.[facility] Reason for Visit (unrecogniz ed section and content) Reason Comments US Specialty Diagnoses / Procedures Referred By Ann t Referred To Contact [facility] Diagnoses Encounter for supervision of high risk in first trimester, antepartum 8 weeks gestation of Procedures NUCHAL TRANSLUCENCY WHI US NUCHAL TRANSLUCENCY 1ST GESTATION Danii Weinberg, HEALTH INFORMATION SPECIALIST.CLINICAL MATERIAL HANDLER [address] [place] [address] [address] Referral ID Status Reason Start Date Expiration Date V isits Requested Visits Authorized [id number] Closed Auto-Generate d Referral 02/04/2024 02/03/2025 1 1 Specialty Diagnoses / Procedures Referred By Contac t Referred To Contact Diagnoses Encounter for supervision of high risk in first trimester, antepartum 8 weeks gestation of Procedures CONSULT TO MATERNAL MEDI CONSULT TO MATERNAL MEDI OFFICE/OUTPATIENT NEW HIGH MDM 60 MINUTES Danii Weinberg APRN.CLINICAL MATERIAL HANDLER [address] [place] [address] Referral ID Status Reason Start Date Expiration Date V isits Requested Visits Authorized [id number] Closed PCP Requested Referral Auto-Generated Referral 02/04/2024 02/03/2025 1 1 Reason Comments Non-Chemotherapy Treatment Specialty Diagnoses / Procedures Referred By Contac t Referred To Contact Diagnoses Anemia complicating , third trimester Procedures IRON SUCROSE INJECTION PER 1 MG Walter Stone, DO [address] [place] [address] Iain [facility] [address] [place] [address] Referral ID Status Reason Start Date Expiration Date V isits Requested Visits Authorized [id number] Authorized 12/21/2021 08/17/2022 99 99 Reason Comments Opened In Error Reason Onset Date Comments Care 11/13/2021 Reason Onset Date Comments Care 12/04/2021 Specialty Diagnoses / Procedures Referred By Contac t Referred To Contact [facility] Diagnoses 31 weeks gestation of Supervision of high risk in third trimester Procedures OBSTETRIC ULTRASOUND WHI US PREG UTERUS AFTER 1ST TRIMEST GESTATION Rosario Garcia APRN.CNM [address] [place] [address] [place] [address] Referral ID Status Reason Start Date Expiration Date V isits Requested Visits Authorized [id number] Closed Auto-Generate d Referral 12/07/2021 08/17/2022 1 [...] PHYSICAL THERAPY EVALUATION HIGH COMPLEX 45 MINS Khurram Ibarra [address] [place] [address] [facility] [address] [place] [address] Referral ID Status Reason Start Date Expiration Date Visits Requested Visits Authorized [id number] Authorized Auto-Generat ed Referral 08/18/2023 08/17/2024 20 20 Reason Comments Right Hip Pain Reason Comments Results Reason Comments Initial OB Visit Reason Comments Orders Reason Comments Patient Update [facility] Reason Comments jaw pain Left side Reason Onset Date Comments Care 03/09/2024 Reason Comments Patient Update Specialty Diagnoses / Procedures Referred By Contac t Referred To Contact [facility] Diagnoses Encounter for screening for nuchal translucency History of delivery Procedures OBSTETRIC ULTRASOUND WHI US PREG UTERUS AFTER 1ST TRIMEST GESTATION Yobani Darby MD [address] [place] [address] [address] Referral ID Status Reason Start Date Expiration Date V isits Requested Visits Authorized [id number] Closed Auto-Generate d Referral 03/09/2024 03/09/2025 4 1 Reason Onset Date Comments Care 05/13/2024 Reason Comments Orders Reason Onset Date Comments Care 05/21/2024 Reason Comments Holter Monitor Application 48 HR Specialty Diagnoses / Procedures Referred By Contac t Referred To Contact [facility] Diagnoses History of labor Procedures OBSTETRIC ULTRASOUND WHI US PREG UTERUS AFTER 1ST TRIMEST GESTATION Danii Weinberg, HEALTH INFORMATION SPECIALIST.CLINICAL MATERIAL HANDLER [address] [place] [address] [address] Referral ID Status Reason Start Date Expiration Date V isits Requested Visits Authorized [id number] Closed Auto-Generate d Referral 05/17/2024 05/17/2025 1 1 Reason Comments New Patient Consult Shortness of Breath A little Specialty Diagnoses / Procedures Referred By Contac t Referred To Contact Cardiology Diagnoses High-risk in second trimester 23 weeks gestation of Heart palpitations Dizziness Procedures CONSULT TO CARDIOLOGY OFFICE/OUTPATIENT NEW HIGH MDM 60 MINUTES Rosario Garcia, HEALTH INFORMATION SPECIALIST.CNM [address] [place] [address] Referral ID Status Reason Start Date Expiration Date V isits Requested Visits Authorized [id number] Closed PCP Requested Referral 05/21/2024 05/21/2025 1 1 Reason Onset Date Comments Care 06/24/2024 Reason Onset Date Comments Care 07/12/2024 Reason Comments Cough With sore throat, SO B & LEE x 2 days Specialty Diagnoses / Procedures Referred By Contac t Referred To Contact [facility] Diagnoses Obesity affecting in third trimester, unspecified obesity type Procedures OBSTETRIC ULTRASOUND WHI US PREG UTERUS AFTER 1ST TRIMEST GESTATION Yobani Darby MD [address] [place] [address] [address] Referral ID Status Reason Start Date Expiration Date V isits Requested Visits Authorized [id number] Closed Auto-Generate d Referral 06/24/2024 06/24/2025 1 1 Reason Onset Date Comments Care 08/06/2024 Reason Onset Date Comments Care 08/16/2024 Reason Comments Refill Request Reason Comments Early 1 week incision chec k Reason Comments Vaginal Discharge Thick yellow dischar ge Reason Comments Routine Reason Comments Vaginal Problem Reason Comments Follow Up Medication Care Teams (unrecognized sec tion and content) Equal Opportunity Officer Relationship Specialty Start Date End Date Surjit Aguirre MD [address] [place] [address] PCP - General Family Practice 05/28/12 Equal Opportunity Officer Relationship Specialty Start Date End Date Surjit Aguirre MD [address] [place] [address] PCP - General Family Practice 05/28/12 Equal Opportunity Officer Relationship Specialty Start Date End Date Surjit Aguirre MD [address] [place] [address] PCP - General Family Practice 05/28/12 Equal Opportunity Officer Relationship Specialty Start Date End Date Surjit Aguirre MD [address] [place] [address] PCP - General Family Practice 05/28/12 Equal Opportunity Officer Relationship Specialty Start Date End Date Surjit Aguirre MD [address] [place] [address] PCP - General Family Practice 05/28/12 Equal Opportunity Officer Relationship Specialty Start Date End Date Surjit Aguirre MD [address] [place] [address] [place] [address] PCP - General Family Practice 05/28/12 Equal Opportunity Officer Relationship Specialty Start Date End Date Surjit Aguirre MD [address] [place] [address] PCP - General Family Practice 05/28/12 Equal Opportunity Officer Relationship Specialty Start Date End Date Surjit Aguirre MD [address] [facility] [place] [address] PCP - General Family Practice 05/28/12 Equal Opportunity Officer Relationship Specialty Start Date End Date Surjit Aguirre MD [address] [place] [place] [address] PCP - General Family Practice 05/28/12 Equal Opportunity Officer Relationship Specialty Start Date End Date Surjit Aguirre MD [address] [place] [place] [address] PCP - General Family Practice 05/28/12 Equal Opportunity Officer Relationship Specialty Start Date End Date Surjit Aguirre MD [address] [place] [place] [address] PCP - General Family Practice 05/28/12 Equal Opportunity Officer Relationship Specialty Start Date End Date Surjit Aguirre MD [address] [place] [place] [address] PCP - General Family Practice 05/28/12 Equal Opportunity Officer Relationship Specialty Start Date End Date Surjit Aguirre MD [address] [facility] [place] [address] PCP - General Family Practice 05/28/12 Equal Opportunity Officer Relationship Specialty Start Date End Date Surjit Aguirre MD [address] [place] [place] [address] PCP - General Family Medicine 05/28/12 Equal Opportunity Officer Relationship Specialty Start Date End Date Surjit Aguirre MD [address] [place] [place] [address] PCP - General Family Medicine 05/28/12 Equal Opportunity Officer Relationship Specialty Start Date End Date Surjit Aguirre MD [address] [place] [place] [address] PCP - General Family Medicine 05/28/12 Equal Opportunity Officer Relationship Specialty Start Date End Date Surjit Aguirre MD [address] [place] [address] PCP - General Family Medicine 05/28/12 Equal Opportunity Officer Relationship Specialty Start Date End Date Surjit Aguirre MD [address] [place] [address] PCP - General Family Medicine 05/28/12 Equal Opportunity Officer Relationship Specialty Start Date End Date Surjit Aguirre MD [address] [place] [address] PCP - General Family Medicine 05/28/12 Equal Opportunity Officer Relationship Specialty Start Date End Date Surjit Aguirre MD [address] [place] [address] PCP - General Family Medicine 05/28/12 Equal Opportunity Officer Relationship Specialty Start Date End Date Surjit Aguirre MD [address] [place] [address] PCP - General Family Medicine 05/28/12 Equal Opportunity Officer Relationship Specialty Start Date End Date Surjit Aguirre MD [address] [place] [address] PCP - General Family Medicine 05/28/12 Equal Opportunity Officer Relationship Specialty Start Date End Date Surjit Aguirre MD [address] [place] [address] PCP - General Family Medicine 05/28/12 Equal Opportunity Officer Relationship Specialty Start Date End Date Surjit Aguirre MD [address] [place] [address] PCP - General Family Medicine 05/28/12 Equal Opportunity Officer Relationship Specialty Start Date End Date Surjit Aguirre MD [address] [facility] [place] [address] PCP - General Family Medicine 05/28/12 Equal Opportunity Officer Relationship Specialty Start Date End Date Surjit Aguirre MD [address] [place] [address] PCP - General Family Medicine 05/28/12 Equal Opportunity Officer Relationship Specialty Start Date End Date Surjit Aguirre MD [address] [place] [address] PCP - General Family Medicine 05/28/12 Equal Opportunity Officer Relationship Specialty Start Date End Date Surjit Aguirre MD [address] [place] [address] PCP - General Family Medicine 05/28/12 Equal Opportunity Officer Relationship Specialty Start Date End Date Surjit Aguirre MD [address] [place] [address] PCP - General Family Medicine 05/28/12 Equal Opportunity Officer Relationship Specialty Start Date End Date Surjit Aguirre MD [address] [place] [address] PCP - General Family Medicine 05/28/12 Equal Opportunity Officer Relationship Specialty Start Date End Date Surjit Aguirre MD [address] [facility] [place] [address] PCP - General Family Medicine 05/28/12 Equal Opportunity Officer Relationship Specialty Start Date End Date Surjit Aguirre MD [address] [facility] [place] [address] PCP - General Family Medicine 05/28/12 Equal Opportunity Officer Relationship Specialty Start Date End Date Surjit Aguirre MD [address] [facility] [place] [address] PCP - General Family Medicine 05/28/12 Equal Opportunity Officer Relationship Specialty Start Date End Date Surjit Aguirre MD [address] [facility] [address] PCP - General Family Medicine 05/28/12 Equal Opportunity Officer Relationship Specialty Start Date End Date Surjit Aguirre MD [address] [facility] [place] [address] PCP - General Family Medicine 05/28/12 Equal Opportunity Officer Relationship Specialty Start Date End Date Surjit Aguirre MD [address] [place] [address] PCP - General Family Medicine 05/28/12 Equal Opportunity Officer Relationship Specialty Start Date End Date Surjit Aguirre MD [address] [facility] [place] [address] PCP - General Family Medicine 05/28/12 Equal Opportunity Officer Relationship Specialty Start Date End Date Surjit Aguirre MD [address] [place] [address] PCP - General Family Medicine 05/28/12 Equal Opportunity Officer Relationship Specialty Start Date End Date Surjit Aguirre MD [address] [facility] [address] PCP - General Family Medicine 05/28/12 Equal Opportunity Officer Relationship Specialty Start Date End Date Surjit Aguirre MD [address] [place] [address] PCP - General Family Medicine 05/28/12 Equal Opportunity Officer Relationship Specialty Start Date End Date Surjit Aguirre MD [address] [place] [address] PCP - General Family Medicine 05/28/12 Equal Opportunity Officer Relationship Specialty Start Date End Date Surjit Aguirre MD [address] [place] [address] PCP - General Family Medicine 05/28/12 Equal Opportunity Officer Relationship Specialty Start Date End Date Surjit Aguirre MD [address] [place] [address] PCP - General Family Medicine 05/28/12 Equal Opportunity Officer Relationship Specialty Start Date End Date Surjit Aguirre MD [address] [place] [address] PCP - General Family Medicine 05/28/12 Equal Opportunity Officer Relationship Specialty Start Date End Date Surjit Aguirre MD [address] [place] [address] PCP - General Family Medicine 05/28/12 Equal Opportunity Officer Relationship Specialty Start Date End Date Surjit Aguirre MD [address] [place] [address] PCP - General Family Medicine 05/28/12 Sami Vora MD [address] [place] [address] Primary Staff Physician Cardiology 06/09/24 Equal Opportunity Officer Relationship Specialty Start Date End Date Surjit Aguirre MD [address] [place], [place] [address] PCP - General Family Medicine 05/28/12 Sami Vora MD [address] [place] [address] Primary Staff Physician Cardiology 06/09/24 Equal Opportunity Officer Relationship Specialty Start Date End Date Surjit Aguirre MD [address] [place], [place] [address] PCP - General Family Medicine 05/28/12 Sami Vora MD [address] [place] [address] Primary Staff Physician Cardiology 06/09/24 Equal Opportunity Officer Relationship Specialty Start Date End Date Surjit Aguirre MD [address] [place], [place] [address] PCP - General Family Medicine 05/28/12 Sami Vora MD [address] [place] [place] [address] Primary Staff Physician Cardiology 06/09/24 Equal Opportunity Officer Relationship Specialty Start Date End Date Surjit Aguirre MD [address] [place], [place] [address] PCP - General Family Medicine 05/28/12 Smai Vora MD [address] [place] [address] Primary Staff Physician Cardiology 06/09/24 Equal Opportunity Officer Relationship Specialty Start Date End Date Surjit Aguirre MD [address] [place] [address] PCP - General Family Medicine 05/28/12 Sami Vora MD [address] [place], [place] [address] Primary Staff Physician Cardiology 06/09/24 Equal Opportunity Officer Relationship Specialty Start Date End Date Surjit Aguirre MD [address] [place] [address] PCP - General Family Medicine 05/28/12 Sami Vora MD [address] [place] [address] Primary Staff Physician Cardiology 06/09/24 Equal Opportunity Officer Relationship Specialty Start Date End Date Surjit Aguirre MD [address] [place] [address] PCP - General Family Medicine 05/28/12 Sami Vora MD [address] [place] [address] Primary Staff Physician Cardiology 06/09/24 Equal Opportunity Officer Relationship Specialty Start Date End Date Surjit Aguirre MD [address] [place], [place] [address] PCP - General Family Medicine 05/28/12 Sami Vora MD [address] [place] [place] [address] Primary Staff Physician Cardiology 06/09/24 Kirsten Aguilar APRN.CLINICAL MATERIAL HANDLER [address] [place] [address] [facility] 07/25/24 Adalberto Linton APRN.CLINICAL MATERIAL HANDLER [address] [place] [address] [facility] 08/03/24 Equal Opportunity Officer Relationship Specialty Start Date End Date Surjit Aguirre MD [address] [place] [address] PCP - General Family Medicine 05/28/12 Sami Vora MD [address] [place] [place] [address] Primary Staff Physician Cardiology 06/09/24 Kirsten Aguilar, HEALTH INFORMATION SPECIALIST.CLINICAL MATERIAL HANDLER [address] [place] [address] [facility] 07/25/24 Adalberto Linton APRN.CLINICAL MATERIAL HANDLER [address] [place] [address] [facility] 08/03/24 Equal Opportunity Officer Relationship Specialty Start Date End Date Surjit Aguirre MD [address] [place] [address] PCP - General Family Medicine 05/28/12 Sami Vora MD [address] [place], [place] [id number] Primary Staff Physician Cardiology 06/09/24 Kirsten Aguilar APRN.CLINICAL MATERIAL HANDLER [address] [place] [address] [facility] 07/25/24 Adalberto Linton APRN.CLINICAL MATERIAL HANDLER [address] [place] [address] [facility] 08/03/[facility] Equal Opportunity Officer Relationship Specialty Start Date End Date Surjit Augirre MD [address] [place] [address] PCP - General Family Medicine 05/28/12 Sami Vora MD [address] [place] [place] [address] Primary Staff Physician Cardiology 06/09/24 Kirsten Aguilar APRN.CLINICAL MATERIAL HANDLER [address] [place] [address] [facility] 07/25/24 Adalberto Linton APRN.CLINICAL MATERIAL HANDLER [address] [place] [address] [facility] 08/03/24 Equal Opportunity Officer Relationship Specialty Start Date End Date Surjit Aguirre MD [address] [place] [address] PCP - General Family Medicine 05/28/12 Sami Vora MD [address] [place] [place] [address] Primary Staff Physician Cardiology 06/09/24 Kirsten Aguilar APRN.CLINICAL MATERIAL HANDLER [address] [facility] [address] [employer] [facility] 07/25/24 Adalberto Linton APRN.CLINICAL MATERIAL HANDLER [address] [facility] [place] [address] [facility] 08/03/24 Equal Opportunity Officer Relationship Specialty Start Date End Date Surjit Aguirre MD [address] [place] [address] PCP - General Family Medicine 05/28/12 Sami Vora MD [address] [place] [place] [address] Primary Staff Physician Cardiology 06/09/24 Kirsten Aguilar HEALTH INFORMATION SPECIALIST.CLINICAL MATERIAL HANDLER [address] [place] [address] [facility] 07/25/24 Adalberto Linton APRN.CLINICAL MATERIAL HANDLER [address] [place] [address] [facility] 08/03/24 Equal Opportunity Officer Relationship Specialty Start Date End Date Surjit Aguirre MD [address] [place] [address] PCP - General Family Medicine 05/28/12 Sami Vora MD [address] [place] [place] [address] Primary Staff Physician Cardiology 06/09/24 Kirsten Aguilar HEALTH INFORMATION SPECIALIST.CLINICAL MATERIAL HANDLER [address] [place] [address] [facility] 07/25/24 Adalberto Linton APRN.CLINICAL MATERIAL HANDLER [address] [place] [address] [facility] 08/03/24 Equal Opportunity Officer Relationship Specialty Start Date End Date Surjit Aguirre MD [address] [place] [address] PCP - General Family Medicine 05/28/12 Sami Vora MD [address] [place] [place] [address] Primary Staff Physician Cardiology 06/09/24 Kirsten Aguilar, HEALTH INFORMATION SPECIALIST.CLINICAL MATERIAL HANDLER [address] [place] [address] [facility] 07/25/24 Adalberto Linton APRN.CLINICAL MATERIAL HANDLER [address] [place] [address] [facility] [facility] 08/03/24 Equal Opportunity Officer Relationship Specialty Start Date End Date Surjit Aguirre MD [address] [place] [address] PCP - General Family Medicine 05/28/12 Sami Vora MD [address] [place], [place] [id number] Primary Staff Physician Cardiology 06/09/24 Kirsten Aguilar, HEALTH INFORMATION SPECIALIST.CLINICAL MATERIAL HANDLER [address] [place] [address] [facility] 07/25/24 Adalberto Linton APRN.CLINICAL MATERIAL HANDLER [address] [place] [address] [facility]immer [facility] 08/03/24 Equal Opportunity Officer Relationship Specialty Start Date End Date Surjit Aguirre MD [address] [place] [address] PCP - General Family Medicine 05/28/12 Sami Vora MD [address] [place] [place] [address] Primary Staff Physician Cardiology 06/09/24 Kirsten Aguilar APRN.CLINICAL MATERIAL HANDLER [address] [place] [address] [facility] 07/25/24 Adalberto Linton APRN.CLINICAL MATERIAL HANDLER [address] [place] [address] [facility] 08/03/24 Equal Opportunity Officer Relationship Specialty Start Date End Date Surjit Aguirre MD [address] [place] [address] PCP - General Family Medicine 05/28/12 Sami Vora MD [address] [place] [address] Primary Staff Physician Cardiology 06/09/24 Kirsten Aguilar APRN.CLINICAL MATERIAL HANDLER [address] [place] [address] [facility] 07/25/24 Adalberto Linton APRN.CLINICAL MATERIAL HANDLER [address] [place] [address] [facility] 08/03/24 Equal Opportunity Officer Relationship Specialty Start Date End Date Surjit Aguirre MD [address] [place] [address] PCP - General Family Medicine 05/28/12 Sami Vora MD [address] [place] [address] Primary Staff Physician Cardiology 06/09/24 Kirsten Aguilar, HEALTH INFORMATION SPECIALIST.CLINICAL MATERIAL HANDLER [address] [place] [address] [facility] 07/25/24 12/29/24 Adalberto Linton, HEALTH INFORMATION SPECIALIST.CLINICAL MATERIAL HANDLER [address] [place] [address] [facility] 08/03/24 Equal Opportunity Officer Relationship Specialty Start Date End Date Surjit Aguirre MD [address] [place] [address] PCP - General Family Medicine 05/28/12 Sami Vora MD [address] [place], [place] [id number] Primary Staff Physician Cardiology 06/09/24 Kirsten Aguilar HEALTH INFORMATION SPECIALIST.CLINICAL MATERIAL HANDLER [address] [place], [place] [id number] [facility] 07/25/24 12/29/24 Adalberto Linton APRN.[facility] [address] [facility] [place] [address] [facility] 08/03/24 Goals (unrecognized section and content) Goals may be documented in a n alternate section INFORMATION SOURCE (unrecogn ized section and content) DATE CREATED AUTHOR 03/30/2022 [facility] DATE CREATED AUTHOR AUTHOR'S ORGANIZ ATION 06/08/2024 [facility] DATE CREATED AUTHOR AUTHOR'S ORGANIZ ATION 09/01/2024 [facility] DATE CREATED AUTHOR AUTHOR'S ORGANIZ ATION 03/01/2025 [facility] FOR RECORDS PERTAINING TO PATIENTS WHO ARE [...] BE BASED ON THE PRIMARY CLINICAL RECORDS. [employer] provides no warranty or guarantee of the accuracy or completeness of information in this document.
[2025-04-14 05:28] VITALS: BP 132/88; PULSE 57; RESP 14; TEMP 36.8; O2SAT 100
== END 2025-04-14 05:29 | disposition home or self-care (01) ==
PROVIDERS: Emergency Provider Emergency Medicine; PCP Family Medicine; Visit Provider Emergency Medicine
DX: K02.9 Dental caries, unspecified (principal); K08.89 Other specified disorders of teeth and supporting structures
CPT/HCPCS: 99282